=== PATIENT | female | born 1985 | race Caucasian/White ===

== ENCOUNTER 2020-11-03 15:13 | Outpatient (REF) | payer MEDICAID, SELFPAY ==
[2020-11-03 17:20] LABS: Amphetamine Screen Urine Not Detected (Not Detect); Barbiturates, Urine Not Detected (Not Detect); Benzodiazepines Screen Urine Not Detected (Not Detect); Cannabinoid Screen Urine Not Detected (Not Detect); Cocaine Screen Urine Not Detected (Not Detect); Opiate Screen Urine Not Detected (Not Detect); Phencyclidine Screen Urine Not Detected (Not Detect)
== END 2020-11-03 15:14 | disposition home or self-care (01) ==
LOC: HO.LAB 15:13
PROVIDERS: PCP Family Medicine; Visit Provider Psychiatry & Neurology Psychiatry
DX: Z79.899 Other long term (current) drug therapy (principal)
CPT/HCPCS: 80307

== ENCOUNTER 2020-11-06 10:00 | Outpatient (RCR) | payer OTHER, SELFPAY ==
--- NOTE | 2020-10-31 13:04 | HO.PS.ADMBH ---
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 The patient had anorexia nervosa since she was 16 with multiple admissions to medicine and later psychiatry, at least 32 admissions with several complications due to her anorexia. She had surgical complications such as ileus paraliticus due to lack of intake and metabolic problems. She also complained of depressive symptoms elicited by depressed mood, anhedonia, poor sleep and increased anxiety. During the intake interview, she reported that she was fairly stable, she is in a complex regimen with benzodiazepines, Suboxone and several antidepressants. She states that she has extensive fragmentation mioclonus, chronic pain, and she is recently sober from heroine. Her last use of heroin was 10 days ago. No acute safety concerns. Medical Evaluation Reviewed: No [facility] Narrative: She had ileus paraliticus Narrative: She had an ileostomy in the past Family History: Denies Social History: She is the youngest of 2 siblings, her milestones were achieved at expected age, she was raised by her parents, she had a good childhood. 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 Meds/Allergies Allergies Allergies Allergy/AdvReac Type Severity Reaction Status Date / Time Unable to Assess Allergy Verified 10/31/20 08:58 Mental Status Exam Mental Status Exam Patient Appearance: Well Grooomed Patient Orientation: Person, Place, Time and Situation Level of Consciousness: Awake Patient Behavior: Appropriate Mood Description: Calm Affect Description: Calm Ability to Follow Directions: Good Speech Pattern: Clear Memory Description: Intact Hallucinations: None Delusions: Not Present Thought Process: Intact Thought Content: positive for Intact Judgement: Fair Assessment & Plan Assessment & Plan (1) Anorexia nervosa: Status: Acute Code(s): F50.00 - Anorexia nervosa, unspecified Assessment and Plan: The patient has a lenghty history of anorexia with several medical comorbilities. Plan: Keep same tratment Certification I certify that partial hospital treatment is medically necessary due to the symptoms and problems resulting from the patient's mental illness and the failure to treat the patient at the partial hospital level of care would likely result in the patient requiring inpatient psychiatric care which could not be prevented at a less intensive level of care. Telehealth Telehealth Location of provider rendering services: practice address Location of patient: address on file Patient Identification confirmed using: Name, : Yes Telehealth method: video Patient verbally consented to treatment: Yes Patient verbally consented to billing insurance company: Yes Patient informed of any privacy concerns related to visit: No Time spent with patient (mins): 45
--- NOTE | 2020-10-31 13:06 | PC.ADMIT ---
Patient scheduled to meet with me at 1315 to complete nursing assessment however patient stated she thought the program ended at 1300 and was tearful stating she has a therapy appointment at that time and does not want to miss it. She agreed to go over her medications with me however did not have time to complete the assessment. Patient denied SI or thoughts to harm herself. She has the national suicide hotline if needed.
--- NOTE | 2020-11-03 15:09 | PC.NURSE ---
I called [facility] to inquire about their IOP substance program. I was informed that they have openings and the client would have to call directly. I called Alex and gave her this information. She agreed to call them.
--- NOTE | 2020-11-03 15:22 | PC.NURSE ---
Case opened in treatment team
--- NOTE | 2020-11-04 09:26 | PC.NURSE ---
Pt requested a phone call. Called pt to discuss issue from last night with her toxicology screening. She reported feeling like we did not take into consideration her handicap . Assured her that it was not intentional and the toxicology screen we do for everyone is a urine screen. Apologized for the lack of communication surrounding the type of screen and informed her that if the program needs another one, she will be given that information up front so she can bring her straight cath equipment. Pt agreed and was thankful for the discussion.
--- NOTE | 2020-11-04 12:16 | PC.NURSE ---
Patient went to get a urine drug screen at [facility] yesterday and was upset to learn that it was a urine drug screen and was unprepared for this as she self catheterizes and did not bring a straight catheter with her as she assumed the test was gong to be oral or serum as she stated she thought they stopped urine tests d/t Covid. I told the patient that I was sorry that happened to her and I realized that upon admission to [facility] Lorraine Campa reviews a lot of information regarding the [facility] which includes patient contracts that states we do urine ORELLANA and how patient could have missed this information. Patient stated that she could do urine drug screens however she just needs to know. Patient also stated that she only has enough catheters to catherized herself three times a day and worried that she would run out if needing to take urine ORELLANA. Information obtained from lab regarding serum ORELLANA. Serum ORELLANA would need to be sent out and could take 3-4 days to come back. Patient would prefer serum drug screens which we will order moving forward. Patient however was able to complete the urine ORELLANA yesterday which came back negative.
--- NOTE | 2020-11-04 14:24 | PC.NURSE ---
Called pt to check in at the end of the day. She presented as scattered, slightly slurring her words, and trailing off at times. When asked she stated I'm fine and attempted to explain the thoughts she had. For example she stated a friend cancelled on her for tonight and then separately that she had to go grocery shopping and then, when prompted, she explained the friend was supposed to go grocery shopping with her. Also, that grocery shopping is triggering for her because of her eating issues. Discussed other options like her showcase maker helping her out from her outreach program (that she couldn't think of the name to) or her boyfriend helping her. She reported that her boyfriend became more of a printer operator and they broke up recently but he still helps her out. Pt reported being safe and not using. She reported she was going to call [facility] for admission to an IOP. Clinician to follow up with her shortly.
--- NOTE | 2020-11-04 15:27 | PC.NURSE ---
I reviewed the clients treatment plan. We discussed length of treatment as she was given 12 units by her insurance and she has an appointment with [facility]ace on 11/17. We discussed either ending this Tuesday or by next Tuesday. I questioned her about appearing tired in group and she states that she was struggling emotionally and physically from yesterday. She denied using substances.
--- NOTE | 2020-11-05 14:40 | HO.PHPPROGNO ---
Subjective Subjective Date of Service: 11/05/20 Reason For Visit: MDD, PTSD, Opioid Use, Anorexia Interim History: The patient reported been euthymic, with no new symptoms, able to contract for safety. She statedd that since she has chronic pain, she wants to change her Suboxone to Methadone. She stated that she doesn't go into withdrawal with Suboxone but a therapist of the program suspected that she was intoxicated. She adamantly denied relapse but her story of not getting into withdrawal with Suboxone is unlikely unless that she is using other opioids. Medication Compliance: Yes Side effects from medications: No Attending Groups: Yes Review of Systems Acute medical concerns: Yes Medical Review of Systems: unchanged Mental Status Exam Mental Status Exam Patient Appearance: Well Grooomed Patient Orientation: Person, Place, Time and Situation Level of Consciousness: Awake Patient Behavior: Appropriate and Talkative Mood Description: Happy Affect Description: Relaxed Patient Cognition Impaired: No Ability to Follow Directions: Good Speech Pattern: Clear Memory Description: Intact Hallucinations: None Delusions: Not Present Thought Process: Goal Oriented Thought Content: positive for Linear Judgement: Fair Assessment & Plan Assessment & Plan (1) Anorexia nervosa: Status: Acute Code(s): F50.00 - Anorexia nervosa, unspecified Assessment and Plan: Adult female with severe anorexia, with medical complications such as ileostomy, chronic pain, opioid use disorder. Today, she stated that she was going to change from Suboxone to Methadone and she has stopped it but it possible that she has relapsed on drugs. She has an appointment at [facility] on November. Plan: Keep same treatment (2) Opioid abuse: Status: Acute Code(s): F11.10 - Opioid abuse, uncomplicated (3) Mood disorder: Status: Acute Code(s): F39 - Unspecified mood [affective] disorder Certification I certify that partial hospital treatment is medically necessary due to the symptoms and problems resulting from the patient's mental illness and the failure to treat the patient at the partial hospital level of care would likely result in the patient requiring inpatient psychiatric care which could not be prevented at a less intensive level of care. Greater than 50% of the session was spent on counseling and/or coordination of care Discharge Plan Discharge Attending provider: Víctor Rosenberg Primary Care Provider: Caroline Thapa Medications: New clonazepam [Klonopin] 2 mg tablet 2 mg PO BEDTIME Qty: 7 RF: 1 No Action loperamide [Imodium] 2 mg Capsule 4 mg PO TID RF: 0 bethanechol chloride 25 mg tablet 1 tab PO TID RF: 0 gabapentin 800 mg Tablet 800 mg PO BEDTIME RF: 0 trazodone 100 mg Tablet 100 mg PO BEDTIME RF: 0 pantoprazole 40 mg Tablet,Delayed Release (Dr/Ec) 40 mg PO DAILY RF: 0 zolpidem [Ambien] 10 mg Tablet 10 mg PO BEDTIME PRN (Reason: Insomnia) RF: 0 fluoxetine 20 mg Capsule 20 mg PO DAILY RF: 0 duloxetine [Cymbalta] 30 mg Capsule,Delayed Release(Dr/Ec) 30 mg PO DAILY RF: 0 duloxetine [Cymbalta] 60 mg Capsule,Delayed Release(Dr/Ec) 60 mg PO DAILY RF: 0 ferrous gluconate 324 mg (36 mg iron) Tablet 324 mg PO DAILY RF: 0 buprenorphine-naloxone [Suboxone] 8-2 mg Film 2 film BUCCAL DAILY RF: 0 Narcan 4 mg/actuation spray,non-aerosol 1 spray intranasal NEEDED PRN (Reason: Opioid Overdose) RF: 0 Referrals: Caroline Thapa MD [Primary Care Provider] - 1 Week Telehealth Telehealth Location of provider rendering services: practice address Location of patient: address on file Patient Identification confirmed using: Name, : Yes Telehealth method: video Patient verbally consented to treatment: Yes Patient verbally consented to billing insurance company: Yes Patient informed of any privacy concerns related to visit: No Time spent with patient (mins): 15
--- NOTE | 2020-11-06 12:51 | PC.NURSE ---
Called pt after second group to check in regarding reports her being in and out of group and appearing intoxicated in the first group. She denied use. She reported extreme pain in her genital area and that she used a whole plunger of prescribed lidocaine in her vagina. Recommended she call her doctor regarding the pain and the lidocaine use. She agreed. Pt called back a reported she will be seeing her doctor at 1:45 this afternoon.
--- NOTE | 2020-11-06 14:18 | PC.NURSE ---
Patient reported to staff that she is prescribed lidocaine for vaginal pain secondary to intercourse. She told staff she used the whole bottle vaginally as the vaginal pain would not go away. Patient spoke to Gris the supervisor sandblaster who advised patient to make an appointment with her PCP to f/u. Per clinicians earlier in the day patient appeared to be rambling on in group and appeared to be nodding off towards the end of the first group. I spoke to patient at 12:30 and patient speech appeared slightly slurred at times. She was alert and oriented. Asked if she took bottle of lidocaine and patient was upset stating she did not take the whole bottle she used a vial. Asked how much she is prescribed and if she uses it with her catheter and patient stated she was unsure how much she was prescribed and stated it was prescribed for pain secondary to intercourse. Patient plans on reviewing use and how much is prescribed during her PCP appointment. Patient denied overusing this medication. Patient stated she has an appointment with her PCP at 1345. Per clinicians during the last group patient appeared alert and oriented and was clear in thought. During admission patient stated to me that she has injected heroin into her vagina and does not want to go back to doing this. Patient plans on attending substance IOP after the [facility] program. Orellana done on 10/31/20 was negative. Serum ORELLANA ordered for tomorrow morning.
--- NOTE | 2020-11-06 15:28 | PC.NURSE ---
Spoke to Zuleyma who stated she is currently at her doctors office waiting for an ambulance to arrive as her EKG was abnormal. She stated if we do not here from her tomorrow it is because she has been hospitalized. Patient was tearful stating she does not want to be hospitalized.
--- NOTE | 2020-11-07 08:37 | PC.NURSE ---
Pt called this morning to discuss what happened yesterday after she went the doctors. She reported she was taken by ambulance to [facility]. She reported she left AMA, walked around [place] for hours and used half a bag of heroin. Spoke to pt with [facility]. Program recommendations are detox but pt declined. She was willing to return to an ER to complete medical assessment with the potential of medical inpatient. Pt agreed to go to [facility] ER and follow up with [facility] after.
--- NOTE | 2020-11-07 08:38 | PC.NURSE ---
Patient left a message on my voicemail stating she left the hospital AMA and used Heroin. Gris the patient mainspring fabrication supervisor called patient this morning. Patient was on speaker phone while I and Nakia were in the room, patient aware. Gris reviewed with patient our recommendation which is for Zuleyma to go back to the hospital and get medical treatment. Also recommended detox. Zuleyma did not want to go back to [facility] as she felt they treated her like an addict however stated she could go to [facility]. Suggested boyfriend bring her as her boyfriend brought her home. Also recommended that patient seek Substance IOP afterwards in addition to getting treatment for her eating disorder.
--- NOTE | 2020-11-07 14:19 | PC.NURSE ---
I called and left a message with the clients therapist Sonya Brady at [facility] clients dc from [facility] and our recommendations for medical assessment at er and [facility] intake for substance IOP.
== END 2020-11-07 14:28 | disposition home or self-care (01) ==
LOC: HO.PHPA 10:00
PROVIDERS: PCP Family Medicine; Visit Provider Psychiatry & Neurology Psychiatry
DX: F50.00 Anorexia nervosa, unspecified (principal); F39 Unspecified mood [affective] disorder; F11.10 Opioid abuse, uncomplicated; Z79.899 Other long term (current) drug therapy
CPT/HCPCS: 90791; 90853

== ENCOUNTER 2021-04-23 14:48 | Outpatient (REF) | payer MEDICAID, SELFPAY ==
--- NOTE | 2021-04-23 | ECG_ITS ---
Test Reason : anorexia, hx. seizures Blood Pressure : / mmHG Vent. Rate : 084 BPM Atrial Rate : 084 BPM P-R Int : 138 ms QRS Dur : 098 ms QT Int : 386 ms P-R-T Axes : 072 072 011 degrees QTc Int : 456 ms Normal sinus rhythm Incomplete right bundle branch block T-wave inversion in Inferior leads Abnormal ECG No previous ECGs available Referred By: Halina Dumont Electronically Signed By:CHEYENNE BELTRE MD
[2021-04-23 15:52] LABS: Alanine Aminotransferase 20 U/L (0-31); Albumin Level 4.8 g/dL (3.5-5.0); Alkaline Phosphatase 93 U/L (39-117); Anion Gap 12 (12-20); Aspartate Amino Transferase 26 U/L (5-31); Bilirubin Total 0.3 mg/dL (0.0-1.0); Blood Urea Nitrogen 10 mg/dL (9-16); Calcium 10.2 mg/dL (8.4-10.2); Carbon Dioxide 28 mmol/L (22-29); Chloride 102 mmol/L (96-108); Estimated Glomerular Filt Rate > 60; Glucose Random 96 mg/dL (60-115); Potassium 4.2 mmol/L (3.3-5.1); Sodium 138 mmol/L (135-145); Total Protein 8.2 g/dL (6.5-8.0)
[2021-04-23 16:00] LABS: Amphetamine Screen Urine Not Detected (Not Detect); Barbiturates, Urine Not Detected (Not Detect); Benzodiazepines Screen Urine Not Detected (Not Detect); Cannabinoid Screen Urine Not Detected (Not Detect); Cocaine Screen Urine Not Detected (Not Detect); Fentanyl, urine POSITIVE (Not Detect); Opiate Screen Urine Not Detected (Not Detect); Phencyclidine Screen Urine Not Detected (Not Detect)
== END 2021-04-23 14:49 | disposition home or self-care (01) ==
LOC: HO.LAB 14:48
PROVIDERS: PCP Family Medicine; Visit Provider Nurse Practitioner Psychiatric/Mental Health
DX: F50.01 Anorexia nervosa, restricting type (principal); F33.1 Major depressive disorder, recurrent, moderate; F11.20 Opioid dependence, uncomplicated; Z79.899 Other long term (current) drug therapy
CPT/HCPCS: 80053; 80307; 93005

== ENCOUNTER 2021-04-28 08:00 | Outpatient (RCR) | payer OTHER, SELFPAY ==
[2021-04-10 11:34] VITALS: BMI 18.9
--- NOTE | 2021-04-10 12:25 | PC.ADMIT ---
Patient is a 35 year old female who was referred by [facility]. Patients was recently admitted to detox for substance use from 03/16-03/23/21. Patient reports snoring Fentanyl 2 bundles daily. She reports last use 03/09/21. Patient is here as a step down to treatment to work on mental health and continued sobriety. Patient has a significant history of mental health treatment complicated by medical issues, Anorexia, and substance use. Patient has been hospitalized medically many times and reports history of organ failure 2 years ago. Patient appears motivated for treatment and wants to learn healthier coping skills. Patient wants to do things differently and reports gaining 20 lbs recently and reports her appetite has improved. Patient lives with her partner of 8 months whom she stated is supportive. Patient is alert and oriented x4. Calm and cooperative. Presents with depressed mood and anxious affect. Denied SI. Asked who she could contact if she felt unsafe and she stated crisis, National Suicide hotline, or her Boyfriend. Patient struggling with guilt and shame over the past. Wants to work on coping skills and improving self esteem. Emailed patient information on online substance use groups (per patient permission) and recommended patient attend online groups in addition to [facility] for more support with early sobriety. Patient did report she stopped Suboxone 3 days ago as she is afraid she would not be able to get pain medication in the hospital if she has another urinary blockage of another medical issues arises. Patient has an upcoming prescriber appointment with her psychiatrist and plans on addressing this with him. Halina Dumont is aware. Unable to reconcile patients medications with the pharmacy at this time as I have been put on hold x3 for 30 minutes then the phone hangs up.
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
--- NOTE | 2021-04-14 14:19 | PC.NURSE ---
I spoke briefly with pt this morning and then again in the afternoon. She reports that she and her boyfriend, who share an apartment, have been tested positive for COVID. She reports that she is quite tired, and has not been able to eat much in 3 days. She reports she had COVID once before, and she has been vaccinated, and that her symptoms are mild. She says her boyfriend is quite sick but still home. She will let staff know if she needs a break from groups, or needs to lie down, or to discontinue program.
--- NOTE | 2021-04-14 15:18 | PC.NURSE ---
Case opened in treatment team.
--- NOTE | 2021-04-16 09:41 | PC.NURSE ---
Patient is aware that she has labs due including a urine ORELLANA and EKG. She reports she and her boyfriend tested positive for Covid and are quarantined until next Tuesday04/20/21. Stated she took another test and tested negative. Patient stated she will complete orders on Tuesday the . Patient also stated that she saw her prescriber Dr James on 04/15/21, Katie d/c and Trazodone increased to 200 mg at HS. Patient is not taking Suboxone at this time and will update us if she restarts Suboxone as she is seeing her suboxone prescirber today. Patient believes when she is taking Suboxone she is unable to urinate without catheterizing however reports when she is not taking Suboxone she is able to urinate without self catheterizing. Patient stated she is suppose to be taking Ferrous Gluconate and plans on starting this next week. She reports she is not on Magnesium at this time.
--- NOTE | 2021-04-16 09:51 | PC.NURSE ---
Patient reports she is no longer taking Prozac 20 mg daily as it was discontinued per Dr Rivas.
--- NOTE | 2021-04-16 11:36 | PM.EVENT ---
Event Note Date of Service: 04/16/21 Event Note: Client did not log in to her scheduled appointment today at 11:20am.
--- NOTE | 2021-04-17 14:28 | PC.NURSE ---
I called and LM for pt. Asked her to call back when she can re: how treatment is going, schedule, etc.
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
--- NOTE | 2021-04-17 16:34 | PC.NURSE ---
Pt called back and I spoke to her. We discussed length of stay, and ideas for creating structure after program. 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 She will plan to discharge on 05/01/21, and will be out on Wednesdays to see her therapist.
--- NOTE | 2021-04-20 11:57 | PC.NURSE ---
Patient called and stated she will not be in group as she is going to go to the hospital d/t c/o leg pain and urinary issues-specifically urinating on herself. Stated she straight catheterized herself however is still having issues. Stated she will call us with an update. Staff is aware.
--- NOTE | 2021-04-20 14:35 | HO.PHPPROGNO ---
Subjective Subjective Date of Service: 04/20/21 Reason For Visit: MDD, PDD, Atypical Anorexia Nervosa Guardianship: No Medical Problems Affecting Mental Status: No Interim History: Zuleyma reports difficulty sleeping, reports she has not slept in 4 days. She believes her lack of sleep is due to not having her Ambien refill completed yet. She says she has called her PCP office regarding this. Reports stomach pain, urine incontinence 2 times this morning. Reports she also is experiencing leg pain. Reports that she has lab work later today, but is in serious pain. Reports she is also craving using heroin, due to the level of pain. Denies SI at this time, no plan, no intent. Medication Compliance: Yes Side effects from medications: No Attending Groups: Yes Review of Systems Acute medical concerns: Yes pain in stomach, legs. Medical Review of Systems: changed Review of Systems Constitutional: Reports as per HPI Eyes: Reports no additional eye complaints Reports Normal hearing present Cardiovascular: Reports no additional cardiovascular complaints Respiratory: Reports no additional respiratory complaints Gastrointestinal: Reports GI cramping and Reports dyspepsia Genitourinary: Reports urinary incontinence Musculoskeletal: Reports abnormal gait (Reports difficulty walking due to leg pain.) Reports Normal hearing present and Reports abnormal gait (Reports difficulty walking due to leg pain.) Mental Status Exam Mental Status Exam Narrative: Well-developed, well-nourished female. Patient Appearance: Well Grooomed and Appropriate Patient Orientation: Person, Place, Time and Situation Level of Consciousness: Awake, Appropriate and Alert Patient Behavior: Appropriate, Cooperative, Anxious and Good Eye Contact Mood Description: Appropriate, Depressed and Anxious Affect Description: Appropriate, Depressed, Anxious, Labile and Nervous Ability to Follow Directions: Excellent Speech Pattern: Clear, Appropriate and Coherent Memory Description: Intact Hallucinations: None Delusions: Not Present Thought Process: Intact, Goal Oriented and Linear Thought Content: positive for Intact, positive for Linear and positive for Preoccupation (Focused on pain, urinary incontinence.) Depressive Symptoms: Increased Anxiety, Insomnia, Increased Irritability, Muscle Pain, Increased Fatigue and Difficulty Concentrating Judgement: Fair Diagnostics Vital Signs (24Hr): Body Mass Index 18.9 Assessment & Plan Assessment & Plan (1) Opioid abuse: Status: Acute Code(s): F11.10 - Opioid abuse, uncomplicated Assessment and Plan: Patient reports craving to use substances due to her level of physical pain. She was encouraged to reach out to any type of recovery supports that she has available so as to help prevent a relapse. (2) Mood disorder: Status: Acute Code(s): F39 - Unspecified mood [affective] disorder Assessment and Plan: Patient tearful, slightly labile, reports this is due to lack of sleep and in feeling pain. (3) Major depressive disorder, recurrent, moderate: Status: Acute Code(s): F33.1 - Major depressive disorder, recurrent, moderate Assessment and Plan: Patient upset, but believes that her symptoms are not due to her mood at this time but that are due to her physical pain. No SI, no safety concerns at this time. (4) Anorexia nervosa: Status: Acute Code(s): F50.00 - Anorexia nervosa, unspecified Assessment and Plan: 1. Keep current medications as prescribed. 2. Patient planning to go to hospital today to has pain and urinary incontinence episodes addressed. 3. Will follow-up as per protocol. Patient educated on: diagnosis, medication risk/benefits, substance abuse and therapeutic strategies Informed Consent: understands Certification I certify that partial hospital treatment is medically necessary due to the symptoms and problems resulting from the patient's mental illness and the failure to treat the patient at the partial hospital level of care would likely result in the patient requiring inpatient psychiatric care which could not be prevented at a less intensive level of care. Greater than 50% of the session was spent on counseling and/or coordination of care Discharge Plan Discharge Attending provider: Víctor Rosenberg Primary Care Provider: Caroline Thapa Medications: No Action clonazepam [Klonopin] 2 mg tablet 2 mg PO BEDTIME Qty: 7 RF: 1 bethanechol chloride 25 mg tablet 1 tab PO TID RF: 0 gabapentin 800 mg Tablet 800 mg PO BEDTIME RF: 0 trazodone 100 mg Tablet 200 mg PO BEDTIME RF: 0 pantoprazole 40 mg Tablet,Delayed Release (Dr/Ec) 40 mg PO DAILY RF: 0 duloxetine [Cymbalta] 30 mg Capsule,Delayed Release(Dr/Ec) 30 mg PO DAILY RF: 0 duloxetine [Cymbalta] 60 mg Capsule,Delayed Release(Dr/Ec) 60 mg PO DAILY RF: 0 Narcan 4 mg/actuation spray,non-aerosol 1 spray intranasal NEEDED PRN (Reason: Opioid Overdose) RF: 0 metoclopramide HCl 10 mg Tablet 5 mg PO TID RF: 0 Referrals: Caroline Thapa MD [Primary Care Provider] - 1 Week Telehealth Telehealth Location of provider rendering services: practice address Location of patient: address on file Patient Identification confirmed using: Name, : Yes Telehealth method: video Patient verbally consented to treatment: Yes Patient verbally consented to billing insurance company: Yes Patient informed of any privacy concerns related to visit: Yes Time spent with patient (mins): 15
--- NOTE | 2021-04-21 10:11 | PC.NURSE ---
Patient left 2 messages on my machine when I got in this morning stating she has been at [facility] since 12:00 yesterday afternoon 04/20/21. Stated they did labs, CT scan, and gave her Dilaudid for pain. Stated she had another 13-20 hour wait and may leave AMA as she could not go another night without sleeping and needed to get a good night sleep and get something to eat. Yvette called patient this morning. Per Yvette's cortext, Zlueyma stated she will be attending PHP today and stated she did leave the ED AMA after waiting 10 hours and then telling her it would be another 20 hours. Patient reports they gave her a letter explaining? She stated people in the waiting room were getting angry and made Zuleyma scared. Feeling better today as she stated she slept. Thoughts sounded clear and patient appeared oriented x4.
--- NOTE | 2021-04-24 13:44 | PC.NURSE ---
Patient EKG abnormal. Incomplete right bundle branch block, T wave inversion in inferior leads. Maria D Lowe RECORD SEARCHER reviewed. Faxed copy to patient's PCP's office for Dr Rossy Rojas to review and to f/u with patient if needed. Called patient's pcp's office and spoke to the veterinary receptionist requesting to speak to a nurse to review the results. Nurse not available at this time, awaiting for a call back for further instructions.
--- NOTE | 2021-04-24 13:51 | PC.NURSE ---
Spoke to patient and reviewed her abnormal EKG and abnormal ORELLANA+ Fentanyl. Patient reports she was given Dilaudid this week in the ED for pain. See previous notes. Repeat ORELLANA next week. Patient is aware we called her PCP and faxed PCP results of EKG and Chem profile and are awaiting to review EKG results with PCP and any further instructions. Patient is not SOB, no chest pain. Stated she is going for a walk and will keep her phone on her. Does not appear to be in any distress.
--- NOTE | 2021-04-24 14:44 | PC.NURSE ---
Spoke to Liat the nurse at patient's PCP's office at [facility]. She received patient's EKG results and results of Chemistry profile. She will review with the Doctors at the practice and will call the patient if follow up is needed. Halina GALLEGOS aware.
--- NOTE | 2021-04-27 14:13 | PC.NURSE ---
Patient asked to speak to this credit underwriter this morning. She stated that on Tuesday she took her old prescription of Dilaudid as her heart was racing. Stated she thinks now that she was having a panic attack. Per [facility] patient does get a prescription for Dilaudid periodically. Patient stated she has an Echocardiogram test at [facility] today and plans on going after groups today. Denied racing heart symptoms or SOB today. Talked about Dilaudid use. Staff talked to patient about not using old prescriptions and to not use Dilaudid while attending [facility]. Team is aware. Yvette Baum also will talk to patient about not using Dilaudid while in the program and will talk to her about attending substance use treatment after d/c from the program.
--- NOTE | 2021-04-27 15:53 | HO.PHPPROGNO ---
Subjective Subjective Date of Service: 04/27/21 Reason For Visit: MDD, PDD, Atypical Anorexia Nervosa Guardianship: No Medical Problems Affecting Mental Status: Yes (Anorexia, pain) Interim History: Zuleyma was tearful, reports that she is struggling. States experiencing side effects regarding recent increase of trazodone. Medication Compliance: Yes Side effects from medications: Yes (reports night sweats from trazodone. ) Attending Groups: Yes Review of Systems Acute medical concerns: Yes Concern regarding recent EKG results, also reports chronic pain. Medical Review of Systems: unchanged Review of Systems Review of Systems Yes all other systems are reviewed and are negative Mental Status Exam Mental Status Exam Patient Appearance: Well Grooomed and Appropriate Patient Orientation: Person, Place, Time and Situation Level of Consciousness: Awake, Appropriate and Alert Patient Behavior: Appropriate, Cooperative, Anxious, Good Eye Contact and Crying Mood Description: Depressed, Anxious, Labile and Angry Affect Description: Appropriate, Anxious and Labile Patient Cognition Impaired: No Ability to Follow Directions: Excellent Speech Pattern: Clear, Appropriate, Spontaneous Speech and Coherent Memory Description: Intact Hallucinations: None Delusions: Not Present Thought Process: Intact, Goal Oriented and Linear Thought Content: positive for Intact, positive for Goal Oriented and positive for Linear Depressive Symptoms: Increased Anxiety and Crying Spells Judgement: Fair Diagnostics Vital Signs (24Hr): Body Mass Index 18.9 Assessment & Plan Assessment & Plan (1) Opioid abuse: Status: Acute Code(s): F11.10 - Opioid abuse, uncomplicated Assessment and Plan: Client denies any type of opioid abuse at this time. Has old script for Dilaudid, reports she has been taking this recently for rectal pain. A [facility] review with client shows that she has had sporadic scripts for Dilaudid p.r.n.. Last filled 2019, with use by date as 06/22/2021. She reports feeling as if people do not believe she has a valid script, and want to kick her out of program. Education and support was provided regarding opioid use disorder and use of p.r.n. opioids, as a trigger to relapse. (2) Mood disorder: Status: Acute Code(s): F39 - Unspecified mood [affective] disorder Assessment and Plan: Client reports some side effects with recent medication changes of stopping Prozac and increase trazodone. She states that she wishes to continue with these meds, as it is helping her sleep. (3) Anorexia nervosa: Status: Acute Code(s): F50.00 - Anorexia nervosa, unspecified Assessment and Plan: Client followed medically for this concern. Assessment and Plan: 1. Continue current medication regimen as prescribed by outpatient provider. 2. Follow-up as per protocol. Patient educated on: diagnosis, medication risk/benefits, substance abuse and therapeutic strategies Informed Consent: understands Reason for contiued partial hosp. stay Substantial Risk for: inability to function and med/psych decompensation Certification I certify that partial hospital treatment is medically necessary due to the symptoms and problems resulting from the patient's mental illness and the failure to treat the patient at the partial hospital level of care would likely result in the patient requiring inpatient psychiatric care which could not be prevented at a less intensive level of care. I spent minutes with the patient and/or on the patient floor today, greater than?50% of which was spent counseling/coordinating care. Discharge Plan Discharge Attending provider: Víctor Rosenberg Primary Care Provider: Caroline Thapa Medications: No Action clonazepam [Klonopin] 2 mg tablet 2 mg PO BEDTIME Qty: 7 RF: 1 bethanechol chloride 25 mg tablet 1 tab PO TID RF: 0 gabapentin 800 mg Tablet 800 mg PO BEDTIME RF: 0 trazodone 100 mg Tablet 200 mg PO BEDTIME RF: 0 pantoprazole 40 mg Tablet,Delayed Release (Dr/Ec) 40 mg PO DAILY RF: 0 duloxetine [Cymbalta] 30 mg Capsule,Delayed Release(Dr/Ec) 30 mg PO DAILY RF: 0 duloxetine [Cymbalta] 60 mg Capsule,Delayed Release(Dr/Ec) 60 mg PO DAILY RF: 0 Narcan 4 mg/actuation spray,non-aerosol 1 spray intranasal NEEDED PRN (Reason: Opioid Overdose) RF: 0 metoclopramide HCl 10 mg Tablet 5 mg PO TID RF: 0 Referrals: Caroline Thapa MD [Primary Care Provider] - 1 Week Telehealth Telehealth Location of provider rendering services: practice address Location of patient: address on file Patient Identification confirmed using: Name, : Yes Telehealth method: video Patient verbally consented to treatment: Yes Patient verbally consented to billing insurance company: Yes Patient informed of any privacy concerns related to visit: Yes Time spent with patient (mins): 15
--- NOTE | 2021-04-27 16:25 | PC.NURSE ---
I called and spoke to pt after she expressed fear and anger around the potential to be kicked out of the program for taking Dilaudid, which she said is a current prescription. She shared that she doesn't abuse this medication, and that it doesn't get her high. We again talked about the danger of having opiates around when struggling with an opiate addiction, and pt agreed to abstain from taking it unless ordered by her MD. We also discussed aftercare, and pt reported a strong desire to attend [facility] when staff offered to look into this referral.
--- NOTE | 2021-04-28 09:48 | PC.NURSE ---
At pt's request, I called and put in a referral for her to attend [facility]'s IOP program. She has a phone intake on 05/05/21 t 2pm. A clinician by the name of Little will call her for this.
--- NOTE | 2021-04-30 10:25 | PC.NURSE ---
Pt called out sick this morning.
--- NOTE | 2021-04-30 12:15 | PC.NURSE ---
I called and LM for pt. She called out sick this morning. I told her to call if she needs anything and I hope she feels better.
--- NOTE | 2021-05-01 10:27 | PC.NURSE ---
Patient called and left a message with staff calling out sick to the program today. Per staff clinician Yvette patient will be discharging from the program today. Called patient and she stated she was not feeling well and that she needs to get tested for COVID however stated she does not think she has COVID. Patient coughing during conversation and sounded congested. Asked patient if she was going to f/u with her PCP and she stated she did not think so, stated she has a cold. Advised patient to get rest and drink plenty of fluids and if feels worse call her PCP. Denied SI , no safety concerns. Reviewed patient medications with patient. Patient reports taking medications as prescribed.
--- NOTE | 2021-05-01 15:05 | PC.NURSE ---
I isidro and LEI for Shiloh Brady, pt's therapist. I let her know about pt's discharge from [facility], and her scheduled intake for [facility] next week.
== END 2021-05-04 07:09 | disposition home or self-care (01) ==
LOC: HO.PHPA 08:00
PROVIDERS: PCP Family Medicine; Visit Provider Psychiatry & Neurology Psychiatry
DX: F33.1 Major depressive disorder, recurrent, moderate (principal); F11.20 Opioid dependence, uncomplicated; F50.01 Anorexia nervosa, restricting type; F43.10 Post-traumatic stress disorder, unspecified
CPT/HCPCS: 90791; 90853

== ENCOUNTER 2021-07-23 18:36 | Inpatient (IN) | payer MEDICAID, OTHER, SELFPAY ==
--- NOTE | 2021-07-23 | ECG_ITS ---
Test Reason : MEDICAL CLEAR Blood Pressure : / mmHG Vent. Rate : 066 BPM Atrial Rate : 066 BPM P-R Int : 150 ms QRS Dur : 106 ms QT Int : 432 ms P-R-T Axes : 071 069 004 degrees QTc Int : 452 ms Normal sinus rhythm with sinus arrhythmia RSR' or QR pattern in V1 suggests right ventricular conduction delay Borderline ECG When compared with ECG of 23-APR-2021 15:04, No significant change was found Referred By: Karyna Dobbs Electronically Signed By:Silvio Lentz
--- NOTE | ~2021-07-23 | XR_ITS ---
EXAMINATION: XR HIP, LEFT CLINICAL INFORMATION: Fall, evaluate for left-sided hip fracture. COMPARISON: None TECHNIQUE: Two views of the left hip. FINDINGS: No evidence of acute fractures or malalignment. The femoral head is well-seated in the acetabula. There is questionable soft tissue thickening in the lateral thigh, possibly the site of injury. No unexpected radiopaque foreign bodies. XR/XR hip LT w PEL1V IMPRESSION: No acute fractures or malalignment.
--- NOTE | ~2021-07-23 | CT_ITS ---
EXAMINATION: CT abdomen pelvis wo con CLINICAL INFORMATION: Reason for Exam Abd pain, Hx Ostomy COMPARISON: No prior CT available for comparison. TECHNIQUE: Multidetector volumetric imaging was performed from the superior aspect of the liver through the pubic symphysis a noncontrasted study. Sagittal and coronal reformatted images were obtained on the technologist's workstation. This CT examination was performed using dose optimization techniques as appropriate, variously including the following: *Automated exposure control *Adjustment of mA and/or kV according to patient size (this includes techniques or standardized protocols for targeted exams where dose is matched to indication/reason for exam; i.e. extremities or head) *Use of iterative reconstruction technique DLP: 337 mGy-cm FINDINGS: LOWER THORAX: Included lung bases are clear. HEPATOBILIARY: No focal hepatic lesions. No biliary ductal dilatation. GALLBLADDER: Gallbladder unremarkable. SPLEEN: Spleen is normal in size. PANCREAS: No focal mass or ductal dilatation. STOMACH AND GASTROINTESTINAL TRACT: Stomach is grossly unremarkable. Evaluation of the bowels is limited on this noncontrasted study. The stomach is distended partially filled with fluid. There is an ileostomy in the right lower quadrants mildly dilated the fluid-filled small bowel loops without a transitional zone could be mild ileus versus partial obstruction. Difficult to assess for transition zone due to lack of contrast. ADRENALS: No adrenal nodules. KIDNEYS/URETERS: No hydronephrosis, stones or solid mass lesions. URINARY BLADDER: Partially decompressed. PELVIC VISCERA: Unremarkable PERITONEUM: There is a free fluid in the dependent portion of the pelvis uncertain etiology. LYMPH NODES: No lymphadenopathy. VASCULAR:Abdominal aorta normal in size, no aneurysm found. BONES, ABDOMINAL WALL AND SOFT TISSUES: Age-appropriate changes of the spine and skeletal system, no destructive osteolytic or osteosclerotic bone lesion found CT/CT abdomen pelvis wo con IMPRESSION: Study limited due to lack of fat oral or IV contrast and paucity of intraperitoneal fat. *Distended stomach, Borderline dilated fluid-filled small bowel loops throughout the abdomen suggesting possibly mild ileus versus partial distal small bowel obstruction. If patient remain symptomatic, may consider correlation with follow-up Gastrografin small bowel follow-through. *Ileostomy right lower quadrant. *Trace amount of free fluid in the dependent portion of the pelvis, no free air.
[2021-07-23 19:02] VITALS: BP 114/69; PULSE 76; RESP 16; TEMP 36.7; O2SAT 99; BMI 19.7
--- NOTE | 2021-07-23 19:29 | ED.PSYCH ---
HPI - Psych General Chief Complaint: Psychiatric Symptoms Stated Complaint: Crisis Time Seen by Provider: 07/23/21 19:02 Source: patient Mode of arrival: ambulatory Limitations: no limitations History of Present Illness HPI Narrative: Patient comes to the emergency room complaining of vague suicidal ideation. Patient states that she is having a lot of trouble with her weight, patient known to be previously hospitalized for a more XR. Patient states that she can not lose enough weight, therefore patient has been using cocaine and heroin in an attempt to lose weight. Patient is struggling, states that she is feels that she can not keep it to get . Patient overdosed yesterday, she was taking to [facility], received Narcan. Denies homicidal ideation. Patient has previous suicide attempt at age 10 and 22 Related Data Home Medications Medication Instructions Recorded Confirmed bethanechol chloride 25 mg tablet 1 tab PO TID 10/31/20 04/10/21 duloxetine 30 mg capsule,delayed 30 mg PO DAILY 10/31/20 04/10/21 release (Cymbalta) duloxetine 60 mg capsule,delayed 60 mg PO DAILY 10/31/20 04/10/21 release (Cymbalta) gabapentin 800 mg tablet 800 mg PO BEDTIME 10/31/20 04/10/21 naloxone 4 mg/actuation nasal 1 spray INTRANASAL NEEDED PRN 10/31/20 04/10/21 spray (Narcan) pantoprazole 40 mg tablet,delayed 40 mg PO DAILY 10/31/20 04/10/21 release trazodone 100 mg tablet 200 mg PO BEDTIME 10/31/20 04/16/21 metoclopramide HCl 10 mg tablet 5 mg PO TID 04/10/21 04/10/21 Previous Rx's Medication Instructions Recorded clonazepam 2 mg tablet (Klonopin) 2 mg PO BEDTIME #7 tab 10/31/20 Allergies Allergy/AdvReac Type Severity Reaction Status Date / Time buspirone [From BuSpar] Allergy Swelling Verified 07/23/21 19:02 chlorpromazine Allergy Anaphylaxis Verified 07/23/21 19:02 [From Thorazine] lamotrigine [From Lamictal] Allergy Rash Verified 07/23/21 19:02 Sulfa (Sulfonamide Allergy Rash Verified 07/23/21 19:02 Antibiotics) linaclotide [From Linzess] AdvReac Abdominal Verified 07/23/21 19:02 Pain quetiapine [From Seroquel] AdvReac bad side Verified 07/23/21 19:02 effects' topiramate AdvReac Fogginess Verified 07/23/21 19:02 ziprasidone [From Geodon] AdvReac psychosis Verified 07/23/21 19:02 Review of Systems Review of Systems: Constitutional : No Weight loss, No Fever, No Chills, No Night Sweats, No Fatigue, No Malaise ENT/Mouth : No Hearing loss, No Ear Pain, No Nasal Congestion, No Sinus Pain, No Hoarseness, No sore throat, No Rhinorrhea, No Swallowing Difficulty Eyes: No Eye Pain, No Swelling, No Redness, No Foreign Body, No Discharge, No Vision Changes Cardiovascular : No Chest Pain, No SOB, No Dyspnea on Exertion, No Orthopnea, No Edema, No Palpitations Respiratory : No Cough, No Sputum, No Wheezing, No Smoke Exposure, No Dyspnea Gastrointestinal : no vomiting or diarrhea. Genitourinary : no irregular bleeding, No Dysuria, No Urinary Frequency, No Hematuria, No Urinary Incontinence, No Urgency, No Flank Pain, No Urinary Flow Changes, No Hesitancy Musculoskeletal : No joint pain, No Myalgias, No Joint Swelling Skin : No Skin Lesions, No rash Neuro : No Weakness, No Numbness, No Paresthesias, No Loss of Consciousness, No Dizziness, No Headache Psych : Complaining of anxiety, no depression, complaining of vague suicidal ideation, no homicidal ideation, complaining of feeling overweight Heme/Lymph: No Bruising, No Bleeding,No Lymphadenopathy Endocrine : No Polyuria, No Polydipsia, No Temperature Intolerance [facility] Past Medical History 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 Oriented X3. Eyes: Pupils equal, round and reactive to light. ENT: Pharynx normal. Neck: Normal inspection. Neck supple. No lymph nodes noted. No crepitus CVS: Normal heart rate and rhythm. Pulses normal. Normal S1 and S2 Respiratory: No respiratory distress. Breath sounds normal. No Wheezing. No rales Abdomen: Soft and nontender. No rigidity. No distention. Skin: Skin warm and dry. Normal skin color. Normal skin turgor. Extremities: No lower extremity edema. No lower extremity edema. No Lacerations. No Rash Neuro: Oriented X 3. No motor deficit. No sensory deficit. Moving all extermities. No slurred speech. Cranial nerves 2-12 grossly intact Psych: Alert, oriented, very anxious, very soft-spoken Course Course Course Narrative: Patient states that she can not urinate. Patient has issues with intermittent urinary retention. Patient has her own medical material to self cath Labs pending, [facility] consult pending. Bladder scan shows 273. Patient states that she cannot urinate. Patient will straight cath herself and provide urine Discharge Plan Discharge Clinical Impression: Anorexia nervosa Prescriptions: No Action clonazepam [Klonopin] 2 mg tablet 2 mg PO BEDTIME Qty: 7 RF: 1 bethanechol chloride 25 mg tablet 1 tab PO TID RF: 0 gabapentin 800 mg Tablet 800 mg PO BEDTIME RF: 0 trazodone 100 mg Tablet 200 mg PO BEDTIME RF: 0 pantoprazole 40 mg Tablet,Delayed Release (Dr/Ec) 40 mg PO DAILY RF: 0 duloxetine [Cymbalta] 30 mg Capsule,Delayed Release(Dr/Ec) 30 mg PO DAILY RF: 0 duloxetine [Cymbalta] 60 mg Capsule,Delayed Release(Dr/Ec) 60 mg PO DAILY RF: 0 Narcan 4 mg/actuation spray,non-aerosol 1 spray intranasal NEEDED PRN (Reason: Opioid Overdose) RF: 0 metoclopramide HCl 10 mg Tablet 5 mg PO TID RF: 0
--- NOTE | 2021-07-23 19:45 | PC.NURSE ---
ERASTO Warner sent
[2021-07-23 19:55] LABS: COVID-19 Test Negative (Negative); IDNOW Serial# 55D5AD1C
[2021-07-23 20:06] LABS: Appearance Urine CLEAR; Color Urine YELLOW; Glucose Urine UA NEG (NEG); Leukocyte Esterase Urine TRACE (NEG); Nitrite Urine NEG (NEG); UACC Culture Trigger YES; Urine Blood NEG (NEG); Urine Ketones NEG (NEG); Urine Protein NEG (NEG-TRACE)
[2021-07-23 20:08] LABS: UPreg QC Valid YES; Urine Pregnancy NEGATIVE (NEGATIVE)
[2021-07-23 20:20] LABS: Bacteria Urine TRACE /LPF; RBC Urine 0-2 /HPF (0); Squamous Epithelial Cell Urine 1+ /LPF
[2021-07-23 20:21] LABS: Amphetamine Screen Urine Not Detected (Not Detect); Barbiturates, Urine Not Detected (Not Detect); Benzodiazepines Screen Urine Not Detected (Not Detect); Cannabinoid Screen Urine Not Detected (Not Detect); Cocaine Screen Urine POSITIVE (Not Detect); Fentanyl, urine POSITIVE (Not Detect); Mucus Urine TRACE /LPF; Opiate Screen Urine Not Detected (Not Detect); Phencyclidine Screen Urine Not Detected (Not Detect)
[2021-07-23 20:29] LABS: Basophils Percent Auto 0.3 % (0-2); Eosinophils Absolute Auto 0.2 X10*3/uL (0.0-0.4); Eosinophils Percent Auto 2.3 % (0-4); Hematocrit 36.9 % (37.0-47.0); Hemoglobin 12.1 g/dl (12.0-16.0); Imm Gran Abs Auto 0.01 X10*3/uL (0.00-0.03); Imm Gran Pct Auto 0.1 % (0.0-0.4); Lymphocytes Absolute Auto 3.4 X10*3/uL (1.2-4.9); Lymphocytes Percent Auto 42.2 % (20-40); MANUAL DIFF FLAG NO; Mean Corpuscular HGB Conc 32.8 g/dl (31.0-35.0); Mean Corpuscular Hemoglobin 29.2 pg (27.0-33.0); Mean Corpuscular Volume 89.1 fL (80.0-98.0); Mean Platelet Volume 9.2 fL (9.4-12.3); Monocytes Absolute Auto 0.6 X10*3/uL (0.1-1.2); Monocytes Percent Auto 6.9 % (2-11); Neutrophils Absolute Auto 3.9 x10*3/uL (2.0-8.3); Neutrophils Percent Auto 48.2 % (45-73); Platelet Count 290 X10*3/uL (160-400); Red Blood Count 4.14 X10*6/uL (4.20-5.50); Red Cell Distribution Width 13.3 % (11.0-16.0)
[2021-07-23 20:41] LABS: Ethanol < 10 mg/dL
[2021-07-23 20:45] LABS: Alanine Aminotransferase 19 U/L (0-31); Albumin Level 4.2 g/dL (3.5-5.0); Alkaline Phosphatase 70 U/L (39-117); Anion Gap 10 (12-20); Aspartate Amino Transferase 25 U/L (5-31); Bilirubin Direct 0.2 mg/dL (0.0-0.5); Bilirubin Total 0.5 mg/dL (0.0-1.0); Blood Urea Nitrogen 12 mg/dL (9-16); Calcium 10.1 mg/dL (8.4-10.2); Carbon Dioxide 30 mmol/L (22-29); Chloride 101 mmol/L (96-108); Creatinine Clr Calc Pharmacy 92.3; Estimated Glomerular Filt Rate > 60; Glucose Random 97 mg/dL (60-115); Potassium 4.1 mmol/L (3.3-5.1); Sodium 137 mmol/L (135-145); Total Protein 7.6 g/dL (6.5-8.0)
--- NOTE | 2021-07-23 21:28 | PHA.MEDREC ---
Pharmacy Consult ? Medication Reconciliation Pharmacy has completed the medication reconciliation.Spoke with patient in [facility]. Pt takes all medications at night except cymbalta. Pt had all medications with her.
[2021-07-23] MEDS: traZODone HCL 100 MG TABLET 200 MG PO (23:14)
[2021-07-23] MEDS: Zolpidem Tartrate 5 MG TABLET PO (23:15)
[2021-07-23] MEDS: Gabapentin 400 MG CAPSULE 800 MG PO (23:15)
[2021-07-23] MEDS: clonazePAM 1 MG TABLET 2 MG PO (23:15)
[2021-07-23 23:25] VITALS: BP 107/67; PULSE 74; RESP 20; TEMP 36.4; O2SAT 100
--- NOTE | 2021-07-24 00:29 | PC.NURSE ---
Pt remains alert and oriented x4, calm and cooperative, pleasant to staff. Pt took bed time medications as ordered without issues. Pt independent with illeostomy care. Pt asleep in bed, will continue to monitor.
--- NOTE | 2021-07-24 07:00 | PC.NURSE ---
patient appears to remain asleep at present respirations are even and unlabored, patient appears in no distress
[2021-07-24] MEDS: DULoxetine HCl 60 MG CAPSULE.DR PO ×2 (08:22→13:28)
--- NOTE | 2021-07-24 09:14 | PC.NURSE ---
patient expressed displeasure that she perceived her meds as not right, called pharmacy who verified [place]ab[place] 800mg BID after 07/30
[2021-07-24 10:59] VITALS: BP 124/83; PULSE 86; TEMP 36.2; O2SAT 100
[2021-07-24] MEDS: Acetaminophen 325 MG TABLET 650 MG PO (11:59)
--- NOTE | 2021-07-24 13:33 | PC.NURSE ---
Addendum entered by Carlos Salgado 07/24/21 13:36: pt ate lunch of yogurt, cottage cheese and fruit Original Note: pt pleasant and polite, spoke w pharmacy about some of her meds being given differently than she had been taking at home, bolivar from pharmacy spoke w her and is reaching out to pt pharmacy about a change in her gabapentin, change mad w her cymbalta and pt requested ambien 10mg but the hospital policy is for max 5 mg so no change was made
[2021-07-24] MEDS: Gabapentin 600 MG TABLET 800 MG PO (15:53)
--- NOTE | 2021-07-24 17:12 | PC.NURSE ---
Patient resting comfortably in bed aware of plan of care to be an inpatient bed search. Took po meds without difficulty will continue to monitor.
[2021-07-24] MEDS: Gabapentin 400 MG CAPSULE 800 MG PO (21:21)
[2021-07-24] MEDS: clonazePAM 1 MG TABLET 2 MG PO (21:21)
[2021-07-24] MEDS: Zolpidem Tartrate 5 MG TABLET PO (21:22)
[2021-07-24] MEDS: traZODone HCL 100 MG TABLET 200 MG PO (21:22)
[2021-07-25 05:13] VITALS: BP 114/70; PULSE 74; RESP 18; TEMP 36.6; O2SAT 99
--- NOTE | 2021-07-25 06:47 | PC.NURSE ---
Patient slept through the night, no distress observed/reported, behavior appropriate and cooperative, medication compliant, patient has ileostomy per report, patient was up this morning reported she did her ileostomy care, patient disposition per [facility] is section 12 inpatient bed search, will continue to monitor.
[2021-07-25] MEDS: Gabapentin 400 MG CAPSULE 800 MG PO ×2 (08:26→20:28)
[2021-07-25] MEDS: DULoxetine HCl 60 MG CAPSULE.DR 120 MG PO (08:27)
[2021-07-25 09:41] VITALS: RESP 18
[2021-07-25] MEDS: LORazepam 1 MG TABLET PO (10:43)
[2021-07-25] MEDS: Acetaminophen 325 MG TABLET 650 MG PO ×2 (12:58→21:34)
--- NOTE | 2021-07-25 13:35 | PC.NURSE ---
pt asking this rn if he can speak w pt in her room, pt appears tearful. pt expressing si thoughts, sts i could easily just have a grape and it would clog my ostomy and i would need surgery to be saved . pt being allowed to vent feelings, moved to [facility] area for better visibility w staff. provider in to see pt, pt alf to safety and will advise any staff if increase in anxious feelings occurs.
[2021-07-25 15:38] VITALS: BP 120/77; PULSE 80; TEMP 37.1; O2SAT 97
--- NOTE | 2021-07-25 18:40 | PC.NURSE ---
report taken from chris beckham. Pt just finished eating dinner tray and is in dayroom with other patients. Interacting well and having healthy conversation. pt appears in nad. will continue to monitor
[2021-07-25] MEDS: Zolpidem Tartrate 5 MG TABLET PO (20:28)
[2021-07-25] MEDS: clonazePAM 1 MG TABLET 2 MG PO (20:28)
[2021-07-25] MEDS: traZODone HCL 100 MG TABLET 200 MG PO (20:28)
[2021-07-25] MEDS: diphenhydrAMINE HCL 25 MG TABLET PO (20:29)
--- NOTE | 2021-07-25 21:06 | PC.NURSE ---
pt was given night time medications with no issues. pt started complaining of left hip pain with bruising after OD and falling. Spoke to danielle DEPUTY BRAND INSPECTOR regarding clients status and he ordered a left hip x ray.
--- NOTE | 2021-07-25 21:38 | PC.NURSE ---
pt states that she has been feeling sick lately after eating certain foods. Educated to let staff know if nausea occurs to let us know so we can medicate her appropriately.
[2021-07-26 01:25] VITALS: BP 117/62; PULSE 69; RESP 16; TEMP 36.8; O2SAT 98
--- NOTE | 2021-07-26 06:19 | PC.NURSE ---
Patient slept through the night, no distress observed/reported, medication compliant, behavior appropriate, disposition per [facility] is section 12 inpatient bed search, no update on bed search, patient has ileostomy/self care, VSS, will continue to monitor
--- NOTE | 2021-07-26 07:42 | PC.NURSE ---
Pt calm, up to BR with steady gait. Checking in with RN regarding morning med pass. No complaints at this time. Good eye contact and clear speech.
[2021-07-26] MEDS: Gabapentin 400 MG CAPSULE 800 MG PO ×2 (08:21→20:33)
[2021-07-26] MEDS: DULoxetine HCl 60 MG CAPSULE.DR 120 MG PO (08:21)
--- NOTE | 2021-07-26 13:16 | PC.NURSE ---
In last few hours patient has been socializing, additional paperback books were brought as well as meds from home to be relabled by pharmacy and additional catheters. Catheters are in locker. Pt has permission to bring soap to bathroom for catheterization.
[2021-07-26 14:00] VITALS: BP 120/76; PULSE 114; TEMP 37.2; O2SAT 99
[2021-07-26] MEDS: Bethanechol Chloride 25 MG TABLET PO ×2 (14:58→17:26)
[2021-07-26 16:51] VITALS: BP 140/94; PULSE 109; RESP 18; TEMP 36.6; O2SAT 100
[2021-07-26] MEDS: Loperamide HCl 2 MG CAPSULE 4 MG PO (17:21)
[2021-07-26 17:22] LABS: Appearance Urine CLEAR; Color Urine YELLOW; Glucose Urine UA NEG (NEG); Leukocyte Esterase Urine NEG (NEG); Nitrite Urine NEG (NEG); Specific Gravity - Urine 1.025 (1.005-1.025); Urine Blood NEG (NEG); Urine Ketones 5 MG/DL (NEG); Urine Protein NEG (NEG-TRACE)
[2021-07-26] MEDS: traZODone HCL 100 MG TABLET 200 MG PO (20:33)
[2021-07-26] MEDS: clonazePAM 1 MG TABLET 2 MG PO (20:33)
[2021-07-26] MEDS: Zolpidem Tartrate 5 MG TABLET PO (20:33)
[2021-07-26] MEDS: diphenhydrAMINE HCL 25 MG TABLET PO (21:09)
[2021-07-27 04:42] VITALS: BP 120/80; PULSE 86; RESP 16; TEMP 36.4; O2SAT 100
--- NOTE | 2021-07-27 06:04 | PC.NURSE ---
Patient slept through the night, no distress observed/reported, medication compliant, behavior appropriate, disposition per [facility] is section 12 inpatient bed search, no update on bed search, patient has ileostomy/self care, VSS, will continue to monitor
--- NOTE | 2021-07-27 07:17 | PC.NURSE ---
patient appears to remain asleep at present respirations are even and unlabored, patient appears in no distress
[2021-07-27 07:58] VITALS: BP 111/84; PULSE 92; RESP 15; TEMP 36.8; O2SAT 100
[2021-07-27] MEDS: DULoxetine HCl 60 MG CAPSULE.DR 120 MG PO (08:03)
[2021-07-27] MEDS: Gabapentin 400 MG CAPSULE 800 MG PO ×2 (08:03→21:23)
[2021-07-27] MEDS: Bethanechol Chloride 25 MG TABLET PO ×2 (08:03→16:38)
[2021-07-27 10:19] LABS: COVID-19 Test Negative (Negative)
[2021-07-27] MEDS: Loperamide HCl 2 MG CAPSULE 4 MG PO ×2 (12:44→21:27)
[2021-07-27] MEDS: LORazepam 1 MG TABLET PO (13:58)
--- NOTE | 2021-07-27 15:00 | PC.NURSE ---
Patient is alert and oriented x 4 lung sounds are clear skin is pink warm and dry speaks in full sentences without difficulty aware of plan of care to be admitted to room 517-2, escorted to via wheel chair with staff, security and belongings.
[2021-07-27 16:10] VITALS: BP 128/91; PULSE 90; TEMP 36.2; O2SAT 98
[2021-07-27] MEDS: Benztropine Mesylate 1 MG TABLET PO (16:38)
[2021-07-27] MEDS: HaloperidoL 5 MG TABLET PO (16:39)
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
--- NOTE | 2021-07-27 21:04 | PC.NURSE ---
Pt reported she has received this years flu vaccine.
[2021-07-27] MEDS: Zolpidem Tartrate 5 MG TABLET PO (21:23)
[2021-07-27] MEDS: cloNIDine HCL 0.1 MG TABLET PO (21:24)
[2021-07-27] MEDS: Mirtazapine 7.5 MG TABLET PO (21:24)
[2021-07-27 21:25] VITALS: BP 123/95; PULSE 88
[2021-07-27] MEDS: traZODone HCL 100 MG TABLET PO (21:25)
[2021-07-27] MEDS: clonazePAM 1 MG TABLET 2 MG PO (21:25)
[2021-07-27] MEDS: diphenhydrAMINE HCL 25 MG TABLET PO (21:27)
[2021-07-28 00:22] VITALS: BMI 18.4
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
[2021-07-28 06:00] VITALS: BP 113/87; PULSE 97; TEMP 36.7; O2SAT 100
[2021-07-28 08:31] LABS: Cholesterol 185 mg/dL; HDL Cholesterol 58 mg/dL; LDL Cholesterol Calculated 114 mg/dl; Triglycerides 65 mg/dL
[2021-07-28 08:47] LABS: Estimated Average Glucose 103 mg/dL; Hemoglobin A1c % 5.2 %
[2021-07-28 08:52] LABS: Thyroid Stimulating Hormone 1.48 uIU/mL (0.32-4.0)
[2021-07-28] MEDS: Gabapentin 400 MG CAPSULE 800 MG PO ×2 (09:03→21:46)
[2021-07-28] MEDS: DULoxetine HCl 30 MG CAPSULE.DR 90 MG PO (09:03)
[2021-07-28] MEDS: Bethanechol Chloride 25 MG TABLET PO ×3 (09:03→16:07)
--- NOTE | 2021-07-28 10:24 | P.PNPSI_ITS ---
Subjective Subjective Date of Service: 07/28/21 Reason For Visit: anorexia, SI, S/P OD Interim History: Patient seen and discussed with team. Patient evaluated this morning and upon interview she states Im a little stressed about that situation, referring to her need to straight cath and has to ask staff for the materials, wipes, and mirror. Taking bethanechol chloride for urinary retention. Says I slept awesome last night, didnt have nightmares, has fewer flashbacks- wants to continue trial on clonidine and schedule the bedtime dose. Says she noticed feeling hungrier today, attributes this to remeron but will continue to trial it. Denies withdrawal on lower cymbalta dose. Wants to continue to cross titrate trazdone and remeron. Says she hasnt needed haldol PRN. In the milieu, patient is safe but somewhat withdrawn, anxious, and irritable in behavior. Denies SI/SIB/HI upon inquiry. Says she feels safe. Medication Compliance: Yes Side effects from medications: No Attending Groups: Intermittent Review of Systems Acute medical concerns: No Medical Review of Systems: unchanged Mental Status Exam Mental Status Exam Narrative: A&O. Pt is frail appearing, thin, in hospital attire, hygiene is good. Good eye contact, attentive. No Tics or Tremors. No abnormal involuntary movements. Less guarded, cooperative and engaged. Non-pressured speech, spontaneous with regular rate and rhythm, normal volume and prosody. No prolonged speech latency or dysarthria. Mood is ?better,? affect is anxious, agitated. Denies SI/SIB/HI upon inquiry. Denies A/VH or delusional thought content. Thoughts are coherent but distracted. No known cognitive or memory impairment. Insight/ Judgment is poor due to chronic self harm behaviors and substance use. Diagnostics Vital Signs (24Hr): Vital Signs - 24 hr 07/27/21 16:10 07/27/21 21:25 07/28/21 06:00 Temperature 97.1 F 98.0 F Pulse Rate 90 88 97 Blood Pressure 128/91 H 123/95 H 113/87 Pulse Oximetry 98 100 BMI result 4Bd Body Mass Index 4d 18.4 4d 4d Labs Results: 07/23/21 20:23 07/23/21 20:23 Labs: Laboratory Results - last 48 hr 07/26/21 07/27/21 07/28/21 17:15 09:47 07:53 Estimat Average Glucose 103 Hemoglobin A1c % 5.2 Triglycerides Cholesterol LDL Cholesterol, Calc HDL Cholesterol Vitamin B12 Folate TSH Urine Color YELLOW Urine Appearance CLEAR Urine pH 6.0 Ur Specific [place] 1.025 Urine Protein NEG Urine Glucose (UA) NEG Urine Ketones 5 Urine Blood NEG Urine Nitrite NEG Ur Leukocyte Esterase NEG COVID-19 (MESHA) Negative COVID-19 Clin Com See Note 07/28/21 07/28/21 07:53 07:53 Estimat Average Glucose Hemoglobin A1c % Triglycerides 65 Cholesterol 185 LDL Cholesterol, Calc 114 HDL Cholesterol 58 Vitamin B12 1371 H Folate 17.4 TSH 1.48 Urine Color Urine Appearance Urine pH Ur Specific [place] Urine Protein Urine Glucose (UA) Urine Ketones Urine Blood Urine Nitrite Ur Leukocyte Esterase COVID-19 (MESHA) COVID-19 Clin Com Imaging Radiology Impressions: ITS Impressions Hip/Pelvis X-Ray 07/25/21 21:15 IMPRESSION: No acute fractures or malalignment. Medications Medications Current Medications Acetaminophen (Acetaminophen 325 Mg Tablet) 650 mg PO Q6H PRN PRN Reason: Headache/Pain Mild Scale (1-3) Al Hydroxide/Mg Hydroxide (Magnesium Hydrox/Alum Hydrox 30 Ml Oral.Susp) 30 ml PO Q6H PRN PRN Reason: Heartburn/Nausea Benztropine Mesylate (Benztropine Mesylate 0.5 Mg Tablet) 0.5 mg PO BID PRN PRN Reason: Extrapyramidal Effects Bethanechol Chloride (Bethanechol Chloride 25 Mg Tablet) 25 mg PO TIDAC [facility] Last Admin: 07/28/21 09:03 Dose: 25 mg Documented by: Clonazepam (Clonazepam 1 Mg Tablet) 2 mg PO BEDTIME [facility] Last Admin: 07/27/21 21:25 Dose: 2 mg Documented by: Clonidine HCl (Clonidine Hcl 0.1 Mg Tablet) 0.1 mg PO TID PRN; Protocol PRN Reason: nightmares, hyperarousal, anxiety Last Admin: 07/27/21 21:24 Dose: 0.1 mg Documented by: Diphenhydramine HCl (Diphenhydramine Hcl 25 Mg Tablet) 25 mg PO BEDTIME PRN PRN Reason: Insomnia Last Admin: 07/27/21 21:27 Dose: 25 mg Documented by: Duloxetine HCl (Duloxetine Hcl 30 Mg Capsule.Dr) 90 mg PO DAILY [facility] Last Admin: 07/28/21 09:03 Dose: 90 mg Documented by: Gabapentin (Gabapentin 400 Mg Capsule) 800 mg PO BID [facility] Last Admin: 07/28/21 09:03 Dose: 800 mg Documented by: Haloperidol (Haloperidol 5 Mg Tablet) 5 mg PO BID PRN PRN Reason: agitation Hydroxyzine HCl (Hydroxyzine Hcl 25 Mg Tablet) 25 mg PO BEDTIME PRN PRN Reason: Anxiety Loperamide HCl (Loperamide Hcl 2 Mg Capsule) 4 mg PO Q6H PRN PRN Reason: Diarrhea Last Admin: 07/27/21 21:27 Dose: 4 mg Documented by: Magnesium Hydroxide (Milk Of Magnesia 30 Ml Oral.Susp) 30 ml PO DAILY PRN PRN Reason: Constipation Mirtazapine (Mirtazapine 7.5 Mg Tablet) 7.5 mg PO BEDTIME [facility] Last Admin: 07/27/21 21:24 Dose: 7.5 mg Documented by: Pharmacy Consult (Consult Rx Perform Med Rec) 1 each MISCELLANE ONCE PRN PRN Reason: Consult order Trazodone HCl (Trazodone Hcl 100 Mg Tablet) 100 mg PO BEDTIME [facility] Last Admin: 07/27/21 21:25 Dose: 100 mg Documented by: Allergies Allergies Allergy/AdvReac Type Severity Reaction Status Date / Time buspirone [From Allergy Swelling Verified 07/23/21 19:02 BuSpar] chlorpromazine Allergy Anaphylaxis Verified 07/23/21 19:02 [From Thorazine] lamotrigine [From Allergy Rash Verified 07/23/21 19:02 Lamictal] Sulfa (Sulfonamide Allergy Rash Verified 07/23/21 19:02 Antibiotics) linaclotide [From AdvReac Abdominal Verified 07/23/21 19:02 Linzess] Pain quetiapine [From AdvReac bad side Verified 07/23/21 19:02 Seroquel] effects' topiramate AdvReac Fogginess Verified 07/23/21 19:02 ziprasidone [From AdvReac psychosis Verified 07/23/21 19:02 Geodon] Assessment & Plan Assessment & Plan (1) Anorexia nervosa: Status: Acute Code(s): F50.00 - Anorexia nervosa, unspecified (2) Major depressive disorder, recurrent, moderate: Status: Acute Code(s): F33.1 - Major depressive disorder, recurrent, moderate (3) Opioid use disorder, severe, dependence: Status: Acute Code(s): F11.20 - Opioid dependence, uncomplicated (4) PTSD (post-traumatic stress disorder): Status: Acute Code(s): F43.10 - Post-traumatic stress disorder, unspecified (5) Cocaine use disorder: Status: Acute Code(s): F14.10 - Cocaine abuse, uncomplicated Plan Zuleyma is a 35 y.o. Female who carries a dx of PTSD, likely BPD, anorexia nervosa, polysubstance abuse, and MDD, recurrent episode. She presented to [facility] ED on 07/23/21 reporting passive SI with plan to OD on heroin and disclosed using cocaine and heroin in an attempt to lose weight. Per ED notes, pt intentionally OD on heroin on 07/22/20 as a suicide attempt and was administered narcan at [facility]. Pt has multiple co-morbid medical concerns including ostomy bag, urinary retention, and chronic pain. Has long hx of IPLOC, PHP, and detox. Has OP psych services, psychiatrist is Dr. Anand. Plan: Will start clonidine 0.1 mg TID PRN for sx of nightmares, hyperarousal, and flashbacks; may also help with potential withdrawal (despite denying sx, as pt's BP is elevated). Pt reports positive benefit on PRN haldol 5 mg, will start haldol 5 mg BID PRN for acute agitation. She reports she trialed remeron in the past and didn?t feel it was helpful, however she is willing to take it again as she last trialed it in adolescence. Will lower trazodone to 100 mg and start remeron 7.5 mg QHS to target anxiety, depression, and sleep (may also work more effectively in concert with cymbalta). Will lower cymbalta to 90 mg per pt?s request, as she denies noticing benefit on higher dose and prefers less medication. 07/28/21: No medication changes other than scheduling clonidine 0.1 mg at bedtime for nightmares, hyperarousal, and sleep. Pt would like to ultimately get off trazodone and continue on remeron for sleep. Would consider increasing remeron f or depression, anxiety, and insomnia. Pt continues to deny withdrawal from substances and is not interested in referral for recovery services. Monitor response to medications. Monitor for safety in the milieu. Discharge on stabilization. Patient seen. Chart reviewed. Discussed with team. Obtain collateral contact info?as needed I spent minutes with the patient and/or on the patient floor today, greater than?50% of which was spent counseling/coordinating care. Reason for contiued inpatient stay Substantial Risk for: harm to self, rapid decompensation and med/psych decompensation
[2021-07-28] MEDS: Loperamide HCl 2 MG CAPSULE 4 MG PO ×3 (12:42→21:46)
[2021-07-28] MEDS: cloNIDine HCL 0.1 MG TABLET PO (16:07)
[2021-07-28 18:00] VITALS: BP 112/68; PULSE 92; TEMP 36.7; O2SAT 99
[2021-07-28] MEDS: Benztropine Mesylate 0.5 MG TABLET PO (18:57)
[2021-07-28] MEDS: HaloperidoL 5 MG TABLET PO (18:57)
[2021-07-28] MEDS: hydrOXYzine HCL 25 MG TABLET PO (20:14)
[2021-07-28] MEDS: clonazePAM 1 MG TABLET 2 MG PO (21:46)
[2021-07-28] MEDS: traZODone HCL 100 MG TABLET PO (21:46)
[2021-07-28] MEDS: Mirtazapine 7.5 MG TABLET PO (21:46)
[2021-07-28] MEDS: Zolpidem Tartrate 5 MG TABLET PO (21:46)
[2021-07-28] MEDS: diphenhydrAMINE HCL 25 MG TABLET PO (21:48)
[2021-07-29 06:00] VITALS: BP 109/66; PULSE 79; TEMP 36.5; O2SAT 100
[2021-07-29] MEDS: Gabapentin 400 MG CAPSULE 800 MG PO ×2 (08:05→22:07)
[2021-07-29] MEDS: Loperamide HCl 2 MG CAPSULE 4 MG PO ×4 (08:06→22:07)
[2021-07-29] MEDS: Bethanechol Chloride 25 MG TABLET PO ×3 (08:06→16:07)
[2021-07-29] MEDS: DULoxetine HCl 30 MG CAPSULE.DR 90 MG PO (08:28)
[2021-07-29] MEDS: Benztropine Mesylate 1 MG TABLET PO ×2 (16:33→17:59)
[2021-07-29 18:32] VITALS: BP 121/82; PULSE 85; RESP 18; TEMP 36.2; O2SAT 100
--- NOTE | 2021-07-29 18:53 | HO.PSYCHPN ---
Subjective Subjective Date of Service: 07/29/21 Reason For Visit: anorexia, SI, S/P OD Interim History: Patient initially presented with dystonic reaction of the jaw and tongue fasciculations which were impeding her speech. Patient got Haldol for the past 1-2 nights. She said it started last night but she got Cogentin and Benadryl; she woke up this morning and was only minimally present, however it started increasing throughout the day and became problematic. During interview patient took Cogentin 1 mg which resolved symptoms. Patient shared past psychiatric history with assembly instructions writer including eating disorder, trauma, anxiety and depression and substance abuse. Patient reports that on combination of Prozac 20 mg and Cymbalta 90 mg she was overall well-functioning. She was on this combination for years and felt that she overall did well, was sleeping, was successful at her job, depression and anxiety well treated and eating disorder symptoms improved, including PTSD symptoms and PMDD. combination, with the additions of trazodone 100 mg, Ambien 10 mg, clonazepam 2 mg in gabapentin, she overall slept well. About 4 months ago her psychiatric provider wanted to discontinue her Prozac, concern for serotonin syndrome, though patient denied history of this. It was also around this time that she detoxed off of heroin after having been sober for 15 years, with subsequent trouble sleeping. Patient says that once Prozac was discontinued she got very depressed and Cymbalta was increased to 120 mg. She still had trouble sleeping and her trazodone was increased to 200 mg which she is certain induced hellish nightmares as she had rarely had nightmares in the past and directly coincided with increase trazodone. Patient's depression, PTSD symptoms, anxiety, poor sleep and increasing eating disordered thoughts call last to produce her suicide attempt last week. Patient denies any SI currently and is grateful she is alive, future oriented and wanting to get stable. Patient denies any AVH or any history of manic type symptoms. Buffing Machine Operator and patient discussed options and she would like to get back on the Prozac 20 mg Cymbalta 90 mg as she did stable on this for years. Patient and assembly instructions writer discussed the risks of this combination including serotonin syndrome however patient feels that the benefit far outweighs the risks and she wants to proceed. Also on this combination she was able to sleep with lower trazodone and did not have nightmares. Patient however feels that she probably needs an additional medication at for although she was relatively stable on these medications she felt that had she had more support via medication she might not have relapsed with substance abuse. Patient would like to try, or retry antipsychotic medication at a low dose to see if that is helpful. Patient says that ziprasidone side effect of psychosis may have been confused with other issues going on at the time and she is not sure this is a fair assessment of ziprasidone. Patient is currently ambivalent about mirtazapine. It helped her sleep last night however it can cause increased appetite which she is fearful of. 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 Also of note, patient reports sustained stability while on these medications. Mental Status Exam Mental Status Exam Narrative: A&O. Pt is thin, in casual cloths, well groomed, good hygiene;. Good eye contact, attentive. Tongue fasiculations present; calm, cooperative and engaged. Non-pressured speech, spontaneous with regular rate and rhythm, normal volume and prosody. No prolonged speech latency. Mood is ?better,? affect congruent. Thought content on treatment; Denies SI/SIB/HI upon inquiry. Denies A/VH or delusional thought content. Thought process logical, linear and goal oriented; No known cognitive or memory impairment. Insight/ Judgment impaired but improving. Diagnostics Vital Signs (24Hr): Vital Signs - 24 hr 07/29/21 06:00 07/29/21 18:32 Temperature 97.7 F 97.1 F Pulse Rate 79 85 Respiratory Rate 18 Blood Pressure 109/66 121/82 Pulse Oximetry 100 100 BMI result Body Mass Index 18.4 Labs Results: 07/23/21 20:23 07/23/21 20:23 Labs: Laboratory Results - last 48 hr 07/28/21 07/28/21 07/28/21 07:53 07:53 07:53 Estimat Average Glucose 103 Hemoglobin A1c % 5.2 Triglycerides 65 Cholesterol 185 LDL Cholesterol, Calc 114 HDL Cholesterol 58 Vitamin B12 Cancelled Folate Cancelled TSH 1.48 Imaging Radiology Impressions: ITS Impressions Hip/Pelvis X-Ray 07/25/21 21:15 IMPRESSION: No acute fractures or malalignment. Medications Medications Current Medications Acetaminophen (Acetaminophen 325 Mg Tablet) 650 mg PO Q6H PRN PRN Reason: Headache/Pain Mild Scale (1-3) Al Hydroxide/Mg Hydroxide (Magnesium Hydrox/Alum Hydrox 30 Ml Oral.Susp) 30 ml PO Q6H PRN PRN Reason: Heartburn/Nausea Benztropine Mesylate (Benztropine Mesylate 1 Mg Tablet) 1 mg PO BID PRN PRN Reason: Extrapyramidal Effects Last Admin: 07/29/21 17:59 Dose: 1 mg Documented by: Bethanechol Chloride (Bethanechol Chloride 25 Mg Tablet) 25 mg PO TIDAC [facility]EL[facility] Last Admin: 07/29/21 16:07 Dose: 25 mg Documented by: Clonazepam (Clonazepam 1 Mg Tablet) 2 mg PO BEDTIME [facility] Last Admin: 07/28/21 21:46 Dose: 2 mg Documented by: Clonidine HCl (Clonidine Hcl 0.1 Mg Tablet) 0.1 mg PO BID PRN; Protocol PRN Reason: nightmares, hyperarousal, anxiety Clonidine HCl (Clonidine Hcl 0.1 Mg Tablet) 0.1 mg PO BEDTIME [facility]ELIA; Protocol Last Admin: 07/28/21 16:07 Dose: 0.1 mg Documented by: Diphenhydramine HCl (Diphenhydramine Hcl 25 Mg Tablet) 25 mg PO BEDTIME [facility] Duloxetine HCl (Duloxetine Hcl 30 Mg Capsule.) 90 mg PO DAILY [facility] Last Admin: 07/29/21 08:28 Dose: 90 mg Documented by: Fluoxetine HCl (Fluoxetine Hcl 10 Mg Capsule) 10 mg PO DAILY [facility] Gabapentin (Gabapentin 400 Mg Capsule) 800 mg PO BID [facility] Last Admin: 07/29/21 08:05 Dose: 800 mg Documented by: Hydroxyzine HCl (Hydroxyzine Hcl 25 Mg Tablet) 25 mg PO BEDTIME PRN PRN Reason: Anxiety Last Admin: 07/28/21 20:14 Dose: 25 mg Documented by: Loperamide HCl (Loperamide Hcl 2 Mg Capsule) 4 mg PO Q6H PRN PRN Reason: Diarrhea Last Admin: 07/28/21 21:46 Dose: 4 mg Documented by: Loperamide HCl (Loperamide Hcl 2 Mg Capsule) 4 mg PO Q4H PRN PRN Reason: may take 30 min prior to meals Last Admin: 07/29/21 17:59 Dose: 4 mg Documented by: Magnesium Hydroxide (Milk Of Magnesia 30 Ml Oral.Susp) 30 ml PO DAILY PRN PRN Reason: Constipation Pharmacy Consult (Consult Rx Perform Med Rec) 1 each MISCELLANE ONCE PRN PRN Reason: Consult order Trazodone HCl (Trazodone Hcl 100 Mg Tablet) 100 mg PO BEDTIME [facility] Last Admin: 07/28/21 21:46 Dose: 100 mg Documented by: Zolpidem Tartrate (Zolpidem Tartrate 5 Mg Tablet) 5 mg PO BEDTIME [facility] Allergies Allergies Allergy/AdvReac Type Severity Reaction Status Date / Time buspirone [From BuSpar] Allergy Swelling Verified 07/23/21 19:02 chlorpromazine Allergy Anaphylaxis Verified 07/23/21 19:02 [From Thorazine] lamotrigine [From Lamictal] Allergy Rash Verified 07/23/21 19:02 Sulfa (Sulfonamide Allergy Rash Verified 07/23/21 19:02 Antibiotics) linaclotide [From Linzess] AdvReac Abdominal Verified 07/23/21 19:02 Pain quetiapine [From Seroquel] AdvReac bad side Verified 07/23/21 19:02 effects' topiramate AdvReac Fogginess Verified 07/23/21 19:02 ziprasidone [From Geodon] AdvReac psychosis Verified 07/23/21 19:02 Assessment & Plan Assessment & Plan (1) Major depressive disorder, recurrent, moderate: Status: Acute Code(s): F33.1 - Major depressive disorder, recurrent, moderate (2) Anorexia nervosa: Status: Acute Code(s): F50.00 - Anorexia nervosa, unspecified (3) Opioid use disorder, severe, dependence: Status: Acute Code(s): F11.20 - Opioid dependence, uncomplicated (4) PTSD (post-traumatic stress disorder): Status: Acute Code(s): F43.10 - Post-traumatic stress disorder, unspecified (5) Cocaine use disorder: Status: Acute Code(s): F14.10 - Cocaine abuse, uncomplicated Plan Zuleyma is a 35 y.o. Female who carries a dx of PTSD, likely BPD, anorexia nervosa, polysubstance abuse, and MDD, recurrent episode. She presented [place] [facility] [place]21 reporting passive SI with plan to OD on heroin and disclosed using cocaine and heroin in an attempt to lose weight. Per ED notes, pt intentionally OD on heroin on 07/22/20 as a suicide attempt and was administered narcan at [facility]. Pt has multiple co-morbid medical concerns including ostomy bag, urinary retention, and chronic pain. Has long hx of IPLOC, PHP, and detox. Has OP psych services, psychiatrist is Dr. Anand. Plan: Will start clonidine 0.1 mg TID PRN for sx of nightmares, hyperarousal, and flashbacks; may also help with potential withdrawal (despite denying sx, as pt's BP is elevated). Pt reports positive benefit on PRN haldol 5 mg, will start haldol 5 mg BID PRN for acute agitation. She reports she trialed remeron in the past and didn?t feel it was helpful, however she is willing to take it again as she last trialed it in adolescence. Will lower trazodone to 100 mg and start remeron 7.5 mg QHS to target anxiety, depression, and sleep (may also work more effectively in concert with cymbalta). Will lower cymbalta to 90 mg per pt?s request, as she denies noticing benefit on higher dose and prefers less medication. 07/28/21: No medication changes other than scheduling clonidine 0.1 mg at bedtime for nightmares, hyperarousal, and sleep. Pt would like to ultimately get off trazodone and continue on remeron for sleep. Would consider increasing remeron for depression, anxiety, and insomnia. Pt continues to deny withdrawal from substances and is not interested in referral for recovery services. 07/29 PLAN: -assembly instructions writer meeting patient for the 1st time -patient wants to restart Prozac 20 mg and Cymbalta 90 mg since she was stable on this for years; she feels it is worth the risk of potential side effects including serotonin syndrome which she has never had -patient would like to take mirtazapine 7.5 mg 1 last time to night since she got good sleep; however she is worried about continuing with his medications since it can increase appetite the thought of which is triggering for her -patient reports she has been on Ambien 10 mg for 7 years on which she is slept well; she would like to have Ambien 5 mg scheduled at bedtime in addition to clonazepam 2 mg -patient reports being on clonazepam 2 mg for 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 Monitor for safety in the milieu. Discharge on stabilization. Patient seen. Chart reviewed. Discussed with team. Obtain collateral contact info?as needed I spent minutes with the patient and/or on the patient floor today, greater than?50% of which was spent counseling/coordinating care. Reason for contiued inpatient stay Substantial Risk for: rapid decompensation
[2021-07-29] MEDS: traZODone HCL 100 MG TABLET PO (22:06)
[2021-07-29] MEDS: clonazePAM 1 MG TABLET 2 MG PO (22:06)
[2021-07-29] MEDS: Zolpidem Tartrate 5 MG TABLET PO (22:06)
[2021-07-29] MEDS: Mirtazapine 7.5 MG TABLET PO (22:07)
[2021-07-29] MEDS: cloNIDine HCL 0.1 MG TABLET PO (22:07)
[2021-07-29] MEDS: diphenhydrAMINE HCL 25 MG TABLET PO (22:07)
[2021-07-30] MEDS: hydrOXYzine HCL 25 MG TABLET PO (05:46)
[2021-07-30 05:56] VITALS: BP 120/71; PULSE 87; TEMP 531.9; TEMP 989.5; O2SAT 99
[2021-07-30] MEDS: FLUoxetine HCl 10 MG CAPSULE PO (08:08)
[2021-07-30] MEDS: DULoxetine HCl 30 MG CAPSULE.DR 90 MG PO (08:08)
[2021-07-30] MEDS: Gabapentin 400 MG CAPSULE 800 MG PO ×2 (08:08→21:40)
[2021-07-30] MEDS: Bethanechol Chloride 25 MG TABLET PO ×3 (08:08→16:12)
[2021-07-30] MEDS: Loperamide HCl 2 MG CAPSULE 4 MG PO ×3 (08:11→21:40)
--- NOTE | 2021-07-30 17:04 | P.PNPSI_ITS ---
Subjective Subjective Date of Service: 07/30/21 Reason For Visit: anorexia, SI, S/P OD Interim History: Patient reports poor sleep last night but was happy to conclude that mirtazapine, which she took and was not helpful, is not effective for insomnia and can thus be eliminated. Patient reports all dystonic and tongue fasciculation symptoms have resolved; she also denies nightmares Patient reports that depression is better and SI remains resolved. She remains quite anxious however and continues to have intrusive eating disordered thoughts that are hard to ignore. Patient is fearful about returning home since her most recent Memory is of traumatic nightmares are now associated with her bedroom; patient does however have a plan to deal with this which involves some recheck a relation. Patient discussed her need for sleep and how historically when she has enough sleep she finds that she possesses the skills to manage her emotions; however when she is tired and struggling with insomnia she is less capable and starts to head down the path towards being overwhelmed. [employer] and patient discussed medication regimen and she would like to increase Prozac to 20 mg, her former home dose. Patient wanted to get on an antipsychotic for increased stability, and discussed options, side effects/risks/benefits of several antipsychotic medications and agreed to trial of lurasidone which is lower risk than the others for causing weight gain and also can be sedating which may help with sleep. Also discussed chronic use of clonazepam and Ambien and patient will consider reducing saying if an alternative exists. Also discussed maintenance medication for substance abuse; patient says she has been on Suboxone in the past which caused urinary retention. Patient is open to considering naltrexone Mental Status Exam Mental Status Exam Narrative: A&O. Pt is thin, in casual cloths, well groomed, good hygiene;. Good eye contact, attentive, cooperative and calm; No Tongue fasiculations or dytonic symptoms present; Speech is normal rate, volume and prosody and Non-pressured and spontaneous; No prolonged speech latency. Mood is ?better...anxious,? affect congruent.? Thought content on treatment; Denies SI/SIB/HI upon inquiry. Denies A/VH or delusional thought content. Thought process logical, linear and goal oriented; No known cognitive or memory impairment. Insight/ Judgment impaired but improving. Diagnostics Vital Signs (24Hr): Vital Signs - 24 hr 07/29/21 18:32 07/30/21 05:56 Temperature 97.1 F 989.5 F H Pulse Rate 85 87 Respiratory Rate 18 Blood Pressure 121/82 120/71 Pulse Oximetry 100 99 BMI result Verdana 4 Body Mass Index Verdana 4 18.4 Verdana 4 Verdana 4 Labs Results: 07/23/21 20:23 07/23/21 20:23 Imaging Radiology Impressions: ITS Impressions Hip/Pelvis X-Ray 07/25/21 21:15 IMPRESSION: No acute fractures or malalignment. Medications Medications Current Medications Acetaminophen (Acetaminophen 325 Mg Tablet) 650 mg PO Q6H PRN PRN Reason: Headache/Pain Mild Scale (1-3) Al Hydroxide/Mg Hydroxide (Magnesium Hydrox/Alum Hydrox 30 Ml Oral.Susp) 30 ml PO Q6H PRN PRN Reason: Heartburn/Nausea Benztropine Mesylate (Benztropine Mesylate 1 Mg Tablet) 1 mg PO BID PRN PRN Reason: Extrapyramidal Effects Last Admin: 07/29/21 17:59 Dose: 1 mg Documented by: Bethanechol Chloride (Bethanechol Chloride 25 Mg Tablet) 25 mg PO TIDAC [facility] Last Admin: 07/30/21 16:12 Dose: 25 mg Documented by: Clonazepam (Clonazepam 1 Mg Tablet) 2 mg PO BEDTIME [facility] Last Admin: 07/29/21 22:06 Dose: 2 mg Documented by: Clonidine HCl (Clonidine Hcl 0.1 Mg Tablet) 0.1 mg PO BID PRN; Protocol PRN Reason: nightmares, hyperarousal, anxiety Clonidine HCl (Clonidine Hcl 0.1 Mg Tablet) 0.1 mg PO BEDTIME [facility]; Protocol Last Admin: 07/29/21 22:07 Dose: 0.1 mg Documented by: Diphenhydramine HCl (Diphenhydramine Hcl 25 Mg Tablet) 25 mg PO BEDTIME [facility] Last Admin: 07/29/21 22:07 Dose: 25 mg Documented by: Duloxetine HCl (Duloxetine Hcl 30 Mg Capsule.) 90 mg PO DAILY [facility] Last Admin: 07/30/21 08:08 Dose: 90 mg Documented by: Fluoxetine HCl (Fluoxetine Hcl 20 Mg Capsule) 20 mg PO DAILY [facility] Gabapentin (Gabapentin 400 Mg Capsule) 800 mg PO BID [facility] Last Admin: 07/30/21 08:08 Dose: 800 mg Documented by: Hydroxyzine HCl (Hydroxyzine Hcl 25 Mg Tablet) 25 mg PO BEDTIME PRN PRN Reason: Anxiety Last Admin: 07/30/21 05:46 Dose: 25 mg Documented by: Loperamide HCl (Loperamide Hcl 2 Mg Capsule) 4 mg PO Q6H PRN PRN Reason: Diarrhea Last Admin: 07/30/21 12:27 Dose: 4 mg Documented by: Loperamide HCl (Loperamide Hcl 2 Mg Capsule) 4 mg PO Q4H PRN PRN Reason: may take 30 min prior to meals Last Admin: 07/30/21 08:11 Dose: 4 mg Documented by: Lurasidone HCl (Lurasidone Hcl 20 Mg Tablet) 20 mg PO BEDTIME [facility] Magnesium Hydroxide (Milk Of Magnesia 30 Ml Oral.Susp) 30 ml PO DAILY PRN PRN Reason: Constipation Pharmacy Consult (Consult Rx Perform Med Rec) 1 each MISCELLANE ONCE PRN PRN Reason: Consult order Trazodone HCl (Trazodone Hcl 100 Mg Tablet) 100 mg PO BEDTIME [facility] Last Admin: 07/29/21 22:06 Dose: 100 mg Documented by: Zolpidem Tartrate (Zolpidem Tartrate 5 Mg Tablet) 5 mg PO BEDTIME [facility] Last Admin: 07/29/21 22:06 Dose: 5 mg Documented by: Allergies Allergies Allergy/AdvReac Type Severity Reaction Status Date / Time buspirone [From Allergy Swelling Verified 07/23/21 19:02 BuSpar] chlorpromazine Allergy Anaphylaxis Verified 07/23/21 19:02 [From Thorazine] lamotrigine [From Allergy Rash Verified 07/23/21 19:02 Lamictal] Sulfa (Sulfonamide Allergy Rash Verified 07/23/21 19:02 Antibiotics) linaclotide [From AdvReac Abdominal Verified 07/23/21 19:02 Linzess] Pain quetiapine [From AdvReac bad side Verified 07/23/21 19:02 Seroquel] effects' topiramate AdvReac Fogginess Verified 07/23/21 19:02 ziprasidone [From AdvReac psychosis Verified 07/23/21 19:02 Geodon] Assessment & Plan Assessment & Plan (1) Major depressive disorder, recurrent, moderate: Status: Acute Code(s): F33.1 - Major depressive disorder, recurrent, moderate (2) Anorexia nervosa: Status: Acute Code(s): F50.00 - Anorexia nervosa, unspecified (3) Opioid use disorder, severe, dependence: Status: Acute Code(s): F11.20 - Opioid dependence, uncomplicated (4) PTSD (post-traumatic stress disorder): Status: Acute Code(s): F43.10 - Post-traumatic stress disorder, unspecified (5) Cocaine use disorder: Status: Acute Code(s): F14.10 - Cocaine abuse, uncomplicated Plan Zuleyma is a 35 y.o. Female who carries a dx of PTSD, likely BPD, anorexia nervosa, polysubstance abuse, and MDD, recurrent episode. She presented to [facility] ED on 07/23/21 reporting passive SI with plan to OD on heroin and disclosed using cocaine and heroin in an attempt to lose weight. Per ED notes, pt intentionally OD on heroin on 07/22/20 as a suicide attempt and was administered narcan at [facility]. Pt has multiple co-morbid medical concerns including ostomy bag, urinary retention, and chronic pain. Has long hx of IPLOC, PHP, and detox. Has OP psych services, psychiatrist is Dr. Anand. Plan: Will start clonidine 0.1 mg TID PRN for sx of nightmares, hyperarousal, and flashbacks; may also help with potential withdrawal (despite denying sx, as pt's BP is elevated). Pt reports positive benefit on PRN haldol 5 mg, will start haldol 5 mg BID PRN for acute agitation. She reports she trialed remeron in the past and didn?t feel it was helpful, however she is willing to take it again as she last trialed it in adolescence. Will lower trazodone to 100 mg and start remeron 7.5 mg QHS to target anxiety, depression, and sleep (may also work more effectively in concert with cymbalta). Will lower cymbalta to 90 mg per pt?s request, as she denies noticing benefit on higher dose and prefers less medication. 07/28/21: No medication changes other than scheduling clonidine 0.1 mg at bedtime for nightmares, hyperarousal, and sleep. Pt would like to ultimately get off trazodone and continue on remeron for sleep. Would consider increasing remeron for depression, anxiety, and insomnia. Pt continues to deny withdrawal from substances and is not interested in referral for recovery services. 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 Monitor for safety in the milieu. Discharge on stabilization. Patient seen. Chart reviewed. Discussed with team. Obtain collateral contact info?as needed I spent minutes with the patient and/or on the patient floor today, greater than?50% of which was spent counseling/coordinating care. Reason for contiued inpatient stay Substantial Risk for: rapid decompensation
[2021-07-30 21:24] VITALS: BP 106/68; PULSE 73; TEMP 36.4; O2SAT 100
[2021-07-30] MEDS: clonazePAM 1 MG TABLET 2 MG PO (21:39)
[2021-07-30] MEDS: diphenhydrAMINE HCL 25 MG TABLET PO (21:40)
[2021-07-30] MEDS: traZODone HCL 100 MG TABLET PO (21:40)
[2021-07-30] MEDS: Lurasidone HCl 20 MG TABLET PO (21:40)
[2021-07-30] MEDS: Zolpidem Tartrate 5 MG TABLET PO (21:40)
[2021-07-30] MEDS: cloNIDine HCL 0.1 MG TABLET PO (21:40)
[2021-07-31 05:54] VITALS: BP 110/67; PULSE 76; TEMP 36.4; O2SAT 99
[2021-07-31] MEDS: Loperamide HCl 2 MG CAPSULE 4 MG PO ×3 (06:56→17:28)
[2021-07-31] MEDS: DULoxetine HCl 30 MG CAPSULE.DR 90 MG PO (08:55)
[2021-07-31] MEDS: FLUoxetine HCl 20 MG CAPSULE PO (08:55)
[2021-07-31] MEDS: Bethanechol Chloride 25 MG TABLET PO ×3 (08:56→15:44)
[2021-07-31] MEDS: Gabapentin 400 MG CAPSULE 800 MG PO ×2 (08:56→21:57)
[2021-07-31] MEDS: Acetaminophen 325 MG TABLET 650 MG PO ×2 (11:05→19:10)
[2021-07-31] MEDS: Gabapentin 400 MG CAPSULE PO (13:47)
--- NOTE | 2021-07-31 18:12 | P.PNPSI_ITS ---
Subjective Subjective Date of Service: 07/31/21 Reason For Visit: anorexia, SI, S/P OD Interim History: discussed meds which are tolerated; pt had nightmare last night, but a normal one, not one based on past trauma which she felt excited about and helped her feel more normal overall. Also says able to eat more w/out feeling triggered which is welcoming sign to her as she has ongoing struggles with eating disordered thinking. pt shared detail about some origins of traumatic thinking. Pt still anxious about going home, but feels she will be able to cope discussed hx of substance abuse and pt wants to get on Naltrexone PO (reviewed risks/side-effects) Mental Status Exam Mental Status Exam Narrative: A&O. Pt is thin, in casual cloths, well groomed, good hygiene;. Good eye cont act, attentive, cooperative and calm; No Tongue fasiculations or dytonic symptoms present; Speech is normal rate, volume and prosody and Non-pressured and spontaneous;? No prolonged speech latency. Mood is ?better...anxious,? affect congruent.? Thought content on treatment; Denies SI/SIB/HI upon inquiry. Denies A/VH or delusional thought content. Thought process logical, linear and goal oriented; No known cognitive or memory impairment. Insight/ Judgment impaired but adequate. Diagnostics Vital Signs (24Hr): Vital Signs - 24 hr 07/30/21 21:24 07/31/21 05:54 Temperature 97.5 F 97.6 F Pulse Rate 73 76 Blood Pressure 106/68 110/67 Pulse Oximetry 100 99 BMI result Verdana 4 Body Mass Index Verdana 4 18.4 Verdana 4 Verdana 4 Labs Results: 07/23/21 20:23 07/23/21 20:23 Imaging Radiology Impressions: ITS Impressions Hip/Pelvis X-Ray 07/25/21 21:15 IMPRESSION: No acute fractures or malalignment. Medications Medications Current Medications Acetaminophen (Acetaminophen 325 Mg Tablet) 650 mg PO Q6H PRN PRN Reason: Headache/Pain Mild Scale (1-3) Last Admin: 07/31/21 11:05 Dose: 650 mg Documented by: Al Hydroxide/Mg Hydroxide (Magnesium Hydrox/Alum Hydrox 30 Ml Oral.Susp) 30 ml PO Q6H PRN PRN Reason: Heartburn/Nausea Benztropine Mesylate (Benztropine Mesylate 1 Mg Tablet) 1 mg PO BID PRN PRN Reason: Extrapyramidal Effects Last Admin: 07/29/21 17:59 Dose: 1 mg Documented by: Bethanechol Chloride (Bethanechol Chloride 25 Mg Tablet) 25 mg PO TIDAC [facility] Last Admin: 07/31/21 15:44 Dose: 25 mg Documented by: Clonazepam (Clonazepam 1 Mg Tablet) 2 mg PO BEDTIME [facility] Last Admin: 07/30/21 21:39 Dose: 2 mg Documented by: Clonidine HCl (Clonidine Hcl 0.1 Mg Tablet) 0.1 mg PO BID PRN; Protocol PRN Reason: nightmares, hyperarousal, anxiety Clonidine HCl (Clonidine Hcl 0.1 Mg Tablet) 0.1 mg PO BEDTIME [facility]EL[facility]; Protocol Last Admin: 07/30/21 21:40 Dose: 0.1 mg Documented by: Diphenhydramine HCl (Diphenhydramine Hcl 25 Mg Tablet) 25 mg PO BEDTIME [facility] Last Admin: 07/30/21 21:40 Dose: 25 mg Documented by: Duloxetine HCl (Duloxetine Hcl 30 Mg Capsule.Dr) 90 mg PO DAILY [facility] Last Admin: 07/31/21 08:55 Dose: 90 mg Documented by: Fluoxetine HCl (Fluoxetine Hcl 20 Mg Capsule) 20 mg PO DAILY [facility] Last Admin: 07/31/21 08:55 Dose: 20 mg Documented by: Gabapentin (Gabapentin 400 Mg Capsule) 800 mg PO BID [facility] Last Admin: 07/31/21 08:56 Dose: 800 mg Documented by: Gabapentin (Gabapentin 400 Mg Capsule) 400 mg PO DAILY PRN PRN Reason: breakthrough neuropathic pain Last Admin: 07/31/21 13:47 Dose: 400 mg Documented by: Hydroxyzine HCl (Hydroxyzine Hcl 25 Mg Tablet) 25 mg PO BEDTIME PRN PRN Reason: Anxiety Last Admin: 07/30/21 05:46 Dose: 25 mg Documented by: Loperamide HCl (Loperamide Hcl 2 Mg Capsule) 4 mg PO Q6H PRN PRN Reason: Diarrhea Last Admin: 07/31/21 17:28 Dose: 4 mg Documented by: Loperamide HCl (Loperamide Hcl 2 Mg Capsule) 4 mg PO Q4H PRN PRN Reason: may take 30 min prior to meals Last Admin: 07/31/21 06:56 Dose: 4 mg Documented by: Lurasidone HCl (Lurasidone Hcl 20 Mg Tablet) 20 mg PO BEDTIME [facility] Last Admin: 07/30/21 21:40 Dose: 20 mg Documented by: Magnesium Hydroxide (Milk Of Magnesia 30 Ml Oral.Susp) 30 ml PO DAILY PRN PRN Reason: Constipation Naltrexone HCl (Naltrexone Hcl 50 Mg Tablet) 25 mg PO DAILY [facility] Pharmacy Consult (Consult Rx Perform Med Rec) 1 each MISCELLANE ONCE PRN PRN Reason: Consult order Trazodone HCl (Trazodone Hcl 100 Mg Tablet) 100 mg PO BEDTIME [facility] Last Admin: 07/30/21 21:40 Dose: 100 mg Documented by: Zolpidem Tartrate (Zolpidem Tartrate 5 Mg Tablet) 5 mg PO BEDTIME [facility] Last Admin: 07/30/21 21:40 Dose: 5 mg Documented by: Allergies Allergies Allergy/AdvReac Type Severity Reaction Status Date / Time buspirone [From Allergy Swelling Verified 07/23/21 19:02 BuSpar] chlorpromazine Allergy Anaphylaxis Verified 07/23/21 19:02 [From Thorazine] lamotrigine [From Allergy Rash Verified 07/23/21 19:02 Lamictal] Sulfa (Sulfonamide Allergy Rash Verified 07/23/21 19:02 Antibiotics) linaclotide [From AdvReac Abdominal Verified 07/23/21 19:02 Linzess] Pain quetiapine [From AdvReac bad side Verified 07/23/21 19:02 Seroquel] effects' topiramate AdvReac Fogginess Verified 07/23/21 19:02 ziprasidone [From AdvReac psychosis Verified 07/23/21 19:02 Geodon] Assessment & Plan Assessment & Plan (1) Major depressive disorder, recurrent, moderate: Status: Acute Code(s): F33.1 - Major depressive disorder, recurrent, moderate (2) Anorexia nervosa: Status: Acute Code(s): F50.00 - Anorexia nervosa, unspecified (3) Opioid use disorder, severe, dependence: Status: Acute Code(s): F11.20 - Opioid dependence, uncomplicated (4) PTSD (post-traumatic stress disorder): Status: Acute Code(s): F43.10 - Post-traumatic stress disorder, unspecified (5) Cocaine use disorder: Status: Acute Code(s): F14.10 - Cocaine abuse, uncomplicated Plan Zuleyma is a 35 y.o. Female who carries a dx of PTSD, likely BPD, anorexia nervosa, polysubstance abuse, and MDD, recurrent episode. She presented to [facility] ED on 07/23/21 reporting passive SI with plan to OD on heroin and disclosed using cocaine and heroin in an attempt to lose weight. Per ED notes, pt intentionally OD on heroin on 07/22/20 as a suicide attempt and was administered narcan at [facility]. Pt has multiple co-morbid medical concerns including ostomy bag, urinary retention, and chronic pain. Has long hx of IPLOC, PHP, and detox. Has OP psych services, psychiatrist is Dr. Anand. Plan: Will start clonidine 0.1 mg TID PRN for sx of nightmares, hyperarousal, and flashbacks; may also help with potential withdrawal (despite denying sx, as pt's BP is elevated). Pt reports positive benefit on PRN haldol 5 mg, will start haldol 5 mg BID PRN for acute agitation. She reports she trialed remeron in the past and didn?t feel it was helpful, however she is willing to take it again as she last trialed it in adolescence. Will lower trazodone to 100 mg and start remeron 7.5 mg QHS to target anxiety, depression, and sleep (may also work more effectively in concert with cymbalta). Will lower cymbalta to 90 mg per pt?s request, as she denies noticing benefit on higher dose and prefers less medicati on. 07/28/21: No medication changes other than scheduling clonidine 0.1 mg at bedtime for nightmares, hyperarousal, and sleep. Pt would like to ultimately get off trazodone and continue on remeron for sleep. Would consider increasing remeron for depression, anxiety, and insomnia. Pt continues to deny withdrawal from substances and is not interested in referral for recovery services. 07/31 stabilizing; no si/hi/avh; depression better; anxious but feels able to cope; feels she is safe; future oriented, hoping to return to work in couple of months; would like to dc on Tuesday to which telegraphic typewriter mechanic agrees. PLAN: ADD Naltrexone 25mg for substance abuse issues will get lfts -continue Lurasidone 20mg qhs -continue Prozac 20 mg and Cymbalta 90 mg since she was stable on this for years; she feels it is worth the risk of potential side effects including serotonin syndrome which she has never had -DC mirtazapine; Not helpful for insomnia; -continue ambien 5mg qhs; patient reports she has been on Ambien 10 mg for 7 years on which she is slept well; she would like to have Ambien 5 mg scheduled at bedtime in addition to clonazepam 2 mg -continue clonazepam 2 mg qhs; patient reports being on clonazepam 2 mg for 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 Monitor for safety in the milieu. Discharge on stabilization. Patient seen. Chart reviewed. Discussed with team. Obtain collateral contact info?as needed I spent minutes with the patient and/or on the patient floor today, greater than?50% of which was spent counseling/coordinating care. Reason for contiued inpatient stay Substantial Risk for: stable for discharge
[2021-07-31 18:45] VITALS: BP 123/69; PULSE 74; RESP 18; TEMP 37; O2SAT 100
[2021-07-31] MEDS: Lurasidone HCl 20 MG TABLET PO (21:57)
[2021-07-31] MEDS: Zolpidem Tartrate 5 MG TABLET PO (21:57)
[2021-07-31] MEDS: clonazePAM 1 MG TABLET 2 MG PO (21:57)
[2021-07-31] MEDS: diphenhydrAMINE HCL 25 MG TABLET PO (21:57)
[2021-07-31] MEDS: traZODone HCL 100 MG TABLET PO (21:57)
[2021-08-01] MEDS: Acetaminophen 325 MG TABLET 650 MG PO (05:44)
[2021-08-01 06:00] VITALS: BP 109/70; PULSE 60; RESP 18; TEMP 36.9; O2SAT 99
[2021-08-01] MEDS: Loperamide HCl 2 MG CAPSULE 4 MG PO ×3 (08:01→13:20)
[2021-08-01] MEDS: Naltrexone HCl 50 MG TABLET 25 MG PO (08:36)
[2021-08-01] MEDS: FLUoxetine HCl 20 MG CAPSULE PO (08:37)
[2021-08-01] MEDS: Gabapentin 400 MG CAPSULE 800 MG PO ×2 (08:37→22:34)
[2021-08-01] MEDS: Bethanechol Chloride 25 MG TABLET PO ×3 (08:37→17:26)
[2021-08-01] MEDS: DULoxetine HCl 30 MG CAPSULE.DR 90 MG PO (08:37)
[2021-08-01 12:57] VITALS: BP 138/71; PULSE 74; RESP 18; TEMP 36.4; O2SAT 99
[2021-08-01] MEDS: HYDROmorphone HCl 2 MG TABLET 1 MG PO (13:19)
--- NOTE | 2021-08-01 13:35 | P.CONIM_ITS ---
History of Present Illness Data of Consult Service Date: 08/01/21 Primary Care Provider: Caroline Thapa MD [facility] Reason for consult: Abdominal pain A 35 years old lady with PMH of drug abuse, anorexia nervosa, depression, post ileostomy who started to complain of abdominal pain today. The patient was admitted to the psych floor for suicidal intention. Started on treatment with naltrexone to help with drug abuse. Reported abdominal pain mainly epigastric not radiating anywhere not associated with any nausea or vomiting but has few episodes of watery stool. Denies any fever, chills, chest pain or urinary symptoms. Hospitalist team was asked to evaluate the patient. 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 Primary fibromyalgia syndrome Self-catheterizes urinary bladder Social History Household Members: Significant Other Housing: House Do you presently have visiting nurse or other home services: No Patient Tobacco Use Status: Current someday Tobacco user Tobacco use type: Cigarette Cigarettes Per Day: 1 Years Smoked: Started age 17 Smoked in Last 30 Days: Yes e-Cigarette/Vaping Use: Never Used Patient Interested in Nicotine Replacement: No Patient Given Instructions on How to Stop Smoking: Yes Date Education Initiated: 07/27/21 Second Hand Smoke Exposure: No Use of substances other than those prescribed or required for medical reasons: Yes Substance Use Type: Crack/Cocaine and Heroin Substance Use Frequency: Chronic Longstanding Last Used Substance: Days (ago) Currently Displaying Signs/Symptoms of Drug Intoxication Withdrawal: No Any prior treatment program specific to substance use: Yes Have you been hit, kicked, punched, or otherwise hurt by someone within the past year? If so, by whom?: No Do you feel safe in your current relationship?: Yes Is there a partner from a previous relationship who is making you feel unsafe now?: Yes Are you made to feel afraid or neglected: No Spiritual Healthcare Practices: None Gnosticism Healthcare Practices: None Cultural Healthcare Practices: None Advance Directives: No Advance Directives Information Provided: Yes Advance Directives on File: No Do you have thoughts of harming others: None Do you have a plan to hurt others: No Plan Recently lost weight without trying: No How much weight loss: 2-13 pounds Eating poorly because of decreased appetite: No Nutrition screen score: 1 Nutrition Risks: Anorexia Patient : No : No Poor oral hygiene: Yes service: No Sexual orientation: Straight/Heterosexual Meds Allergies Allergy/AdvReac Type Severity Reaction Status Date / Time buspirone [From Allergy Swelling Verified 07/23/21 19:02 BuSpar] chlorpromazine Allergy Anaphylaxis Verified 07/23/21 19:02 [From Thorazine] lamotrigine [From Allergy Rash Verified 07/23/21 19:02 Lamictal] Sulfa (Sulfonamide Allergy Rash Verified 07/23/21 19:02 Antibiotics) linaclotide [From AdvReac Abdominal Verified 07/23/21 19:02 Linzess] Pain quetiapine [From AdvReac bad side Verified 07/23/21 19:02 Seroquel] effects' topiramate AdvReac Fogginess Verified 07/23/21 19:02 ziprasidone [From AdvReac psychosis Verified 07/23/21 19:02 Geodon] Active Medications: Current Medications Acetaminophen (Acetaminophen 325 Mg Tablet) 650 mg PO Q6H PRN PRN Reason: Headache/Pain Mild Scale (1-3) Last Admin: 08/01/21 05:44 Dose: 650 mg Documented by: Al Hydroxide/Mg Hydroxide (Magnesium Hydrox/Alum Hydrox 30 Ml Oral.Susp) 30 ml PO Q6H PRN PRN Reason: Heartburn/Nausea Benztropine Mesylate (Benztropine Mesylate 1 Mg Tablet) 1 mg PO BID PRN PRN Reason: Extrapyramidal Effects Last Admin: 07/29/21 17:59 Dose: 1 mg Documented by: Bethanechol Chloride (Bethanechol Chloride 25 Mg Tablet) 25 mg PO TIDAC [facility] Last Admin: 08/01/21 13:19 Dose: 25 mg Documented by: Clonazepam (Clonazepam 1 Mg Tablet) 2 mg PO BEDTIME [facility] Last Admin: 07/31/21 21:57 Dose: 2 mg Documented by: Clonidine HCl (Clonidine Hcl 0.1 Mg Tablet) 0.1 mg PO BID PRN; Protocol PRN Reason: nightmares, hyperarousal, anxiety Clonidine HCl (Clonidine Hcl 0.1 Mg Tablet) 0.1 mg PO BEDTIME [facility]; Protocol Last Admin: 07/31/21 22:53 Dose: Not Given Documented by: Diphenhydramine HCl (Diphenhydramine Hcl 25 Mg Tablet) 25 mg PO BEDTIME [facility] Last Admin: 07/31/21 21:57 Dose: 25 mg Documented by: Duloxetine HCl (Duloxetine Hcl 30 Mg Capsule.Dr) 90 mg PO DAILY [facility] Last Admin: 08/01/21 08:37 Dose: 90 mg Documented by: Fluoxetine HCl (Fluoxetine Hcl 20 Mg Capsule) 20 mg PO DAILY [facility] Last Admin: 08/01/21 08:37 Dose: 20 mg Documented by: Gabapentin (Gabapentin 400 Mg Capsule) 800 mg PO BID [facility] Last Admin: 08/01/21 08:37 Dose: 800 mg Documented by: Gabapentin (Gabapentin 400 Mg Capsule) 400 mg PO DAILY PRN PRN Reason: breakthrough neuropathic pain Last Admin: 07/31/21 13:47 Dose: 400 mg Documented by: Hydroxyzine HCl (Hydroxyzine Hcl 25 Mg Tablet) 25 mg PO BEDTIME PRN PRN Reason: Anxiety Last Admin: 07/30/21 05:46 Dose: 25 mg Documented by: Loperamide HCl (Loperamide Hcl 2 Mg Capsule) 4 mg PO Q6H PRN PRN Reason: Diarrhea Last Admin: 08/01/21 13:20 Dose: 4 mg Documented by: Loperamide HCl (Loperamide Hcl 2 Mg Capsule) 4 mg PO Q4H PRN PRN Reason: may take 30 min prior to meals Last Admin: 08/01/21 08:52 Dose: 4 mg Documented by: Lurasidone HCl (Lurasidone Hcl 20 Mg Tablet) 20 mg PO BEDTIME [facility] Last Admin: 07/31/21 21:57 Dose: 20 mg Documented by: Magnesium Hydroxide (Milk Of Magnesia 30 Ml Oral.Susp) 30 ml PO DAILY PRN PRN Reason: Constipation Naltrexone HCl (Naltrexone Hcl 50 Mg Tablet) 25 mg PO DAILY [facility] Last Admin: 08/01/21 08:36 Dose: 25 mg Documented by: Pharmacy Consult (Consult Rx Perform Med Rec) 1 each MISCELLANE ONCE PRN PRN Reason: Consult order Trazodone HCl (Trazodone Hcl 100 Mg Tablet) 100 mg PO BEDTIME [facility] Last Admin: 07/31/21 21:57 Dose: 100 mg Documented by: Zolpidem Tartrate (Zolpidem Tartrate 5 Mg Tablet) 5 mg PO BEDTIME [facility] Last Admin: 07/31/21 21:57 Dose: 5 mg Documented by: Home Medications Medication Instructions Recorded Confirmed Last Taken Type duloxetine 60 mg 120 mg PO DAILY 10/31/20 07/24/21 07/23/21 History capsule,delayed release (Cymbalta) gabapentin 800 mg 800 mg PO BID 10/31/20 07/24/21 07/22/21 History tablet trazodone 100 mg 200 mg PO 10/31/20 07/23/21 07/22/21 History tablet BEDTIME diphenhydramine 25 mg PO BEDTIME 07/23/21 07/23/21 07/22/21 History HCl 25 mg capsule PRN ([employer] [facility]) loperamide 2 mg 2 cap PO Q6H PRN 07/23/21 07/23/21 07/22/21 History capsule zolpidem 10 mg 1 tab PO BEDTIME 07/23/21 07/23/21 07/22/21 History tablet bethanechol 1 tab PO TID 07/26/21 07/26/21 Unknown History chloride 25 mg tablet Physical Exam Verdana 4l Vital Signs and Narrative: Verdana 4d Verdana 4d Vital Signs: Verdana 4d Verdana 4Bd Last Vital Signs Verdana 4d Imaging Account Manager New 4d Imaging Account Manager New 4d Temp 97.6 F 08/01/21 12:57 Imaging Account Manager New 4d Pulse 74 08/01/21 12:57 Imaging Account Manager New 4d Resp 18 08/01/21 12:57 BP 138/71 08/01/21 12:57 Pulse Ox 99 08/01/21 12:57 BMI result Body Mass Index 18.4 Const: Other: Constitutional : Alert, oriented, not in distress Neck : Normal inspection, Supple Cardiovascular : RRR, S1 S2, no lower extremity edema Respiratory : Good bilateral air entry, no crackles, wheezes or rhonchi Gastrointestinal: soft, lax, decrease bowel sounds, Non tender, ostomy in place and the bag is almost empty but has small amount of liquid stool Skin : Warm, Dry Neurological : Alert & oriented x3, No focal deficit Results Labs CBC and Chem 7: 08/01/21 13:21 08/01/21 13:21 Labs: Laboratory Results - last 24 hr 08/01/21 13:21 MCV Cancelled MCH Cancelled MCHC Cancelled RDW Cancelled Plt Count Cancelled MPV Cancelled Absolute Nucleated RBC Cancelled Nucleated RBC % (auto) Cancelled Assessment and Plan (1) Cocaine use disorder: Status: Acute (2) Abdominal pain: Status: Acute Plan A 35 years old lady with PMH of drug abuse, anorexia nervosa, depression, post ileostomy who started to complain of abdominal pain today. Abdominal pain Blood work negative for any source of infection CT scan showing possible ileus Symptomatic mccoy the patient has no nausea or vomiting, having bowel movement which makes it less likely to have bowel obstruction To use Reglan around mealtime Tolerating diet will continue to monitor Pseudo hyper calcemia Corrected calcium of 10.3 Thank you for the consult, will continue to monitor the patient, please contact hospitalist the with any questions
[2021-08-01 13:42] LABS: Basophils Percent Auto 0.3 % (0-2); Eosinophils Absolute Auto 0.2 X10*3/uL (0.0-0.4); Eosinophils Percent Auto 1.5 % (0-4); Hematocrit 43.6 % (37.0-47.0); Hemoglobin 14.3 g/dl (12.0-16.0); Imm Gran Abs Auto 0.02 X10*3/uL (0.00-0.03); Imm Gran Pct Auto 0.2 % (0.0-0.4); Lymphocytes Absolute Auto 1.2 X10*3/uL (1.2-4.9); Lymphocytes Percent Auto 11.8 % (20-40); MANUAL DIFF FLAG NO; Mean Corpuscular HGB Conc 32.8 g/dl (31.0-35.0); Mean Corpuscular Hemoglobin 29.2 pg (27.0-33.0); Mean Platelet Volume 9.8 fL (9.4-12.3); Monocytes Absolute Auto 0.4 X10*3/uL (0.1-1.2); Monocytes Percent Auto 3.8 % (2-11); Neutrophils Absolute Auto 8.1 x10*3/uL (2.0-8.3); Neutrophils Percent Auto 82.4 % (45-73); Platelet Count 329 X10*3/uL (160-400); Red Cell Distribution Width 12.9 % (11.0-16.0); White Blood Count 9.8 X10*3/uL (4.8-10.8)
[2021-08-01 13:45] LABS: Alanine Aminotransferase 24 U/L (0-31); Alkaline Phosphatase 82 U/L (39-117); Amylase 96 U/L (28-100); Anion Gap 14 (12-20); Aspartate Amino Transferase 26 U/L (5-31); Bilirubin Direct 0.3 mg/dL (0.0-0.5); Bilirubin Total 0.6 mg/dL (0.0-1.0); Blood Urea Nitrogen 10 mg/dL (9-16); Calcium 11.1 mg/dL (8.4-10.2); Carbon Dioxide 29 mmol/L (22-29); Chloride 99 mmol/L (96-108); Creatinine Clr Calc Pharmacy 72.8; Estimated Glomerular Filt Rate > 60; Glucose Random 101 mg/dL (60-115); Lipase 51 U/L (8-78); Potassium 3.7 mmol/L (3.3-5.1); Sodium 138 mmol/L (135-145); Total Protein 8.7 g/dL (6.5-8.0)
[2021-08-01] MEDS: Ketorolac Tromethamine 30 MG/ML VIAL IM (17:26)
--- NOTE | 2021-08-01 17:53 | PC.NURSE ---
This RN administered 30mg Toradol IM at 17:26. At around 17:45 patient began vomiting. Vitals: T: 98.0 BP 129/83 HR: 91 O2: 100%. Notified Dr. Bravo.
--- NOTE | 2021-08-01 18:37 | PC.NURSE ---
Pt's boyfriend called, pt gave verbal consent for staff to communicate with him and provide him with any updates.
[2021-08-01 20:17] VITALS: BMI 18.8
[2021-08-01] MEDS: Lactated Ringers 1,000 ML 100 ML IVCONT (20:49)
[2021-08-01] MEDS: HYDROmorphone HCl 1 MG/ML SYRINGE 0.5 MG IVPUSH ×2 (20:50→22:52)
[2021-08-01] MEDS: ondansetron HCL 4 MG/2 ML VIAL IVPUSH (20:50)
[2021-08-01 21:16] VITALS: BP 118/70; PULSE 74; RESP 18; TEMP 36.2; O2SAT 97
--- NOTE | 2021-08-01 21:27 | HO.PSYCHPN ---
Subjective Subjective Date of Service: 08/01/21 Reason For Visit: anorexia, SI, S/P OD Interim History: Patient was complaining of abdominal pain this morning. She was saying it was around the colostomy area. It was stabbing. She says it was 10/10. She was irritable and angry because she felt she was not attended to. She said it felt like kidney stones. She was tearful> She was seen. Discussion with hospitalist was done. She had blood work orderd and hospitalist came and evaluated patient. She was sent for an abdominal CT scan. She was screaming that people are not paying attention to her. She at one point went to the room and broke a plastic bin and took pieces off to try to harm self. She was placed on 5 min checks. Review of Systems Review of Systems No fever, chills or weakness No chest pain, palpitation No shortness of breath or coughing Reporting epigastric abdominal pain with associated watery stool from ostomy No urinary symptoms No any rash or wounds Mental Status Exam Mental Status Exam Narrative: A&O. Pt is thin, in casual cloths, well groomed, good hygiene;. Good eye contact, attentive, irritable. No Tongue fasiculations or dytonic symptoms present; Speech is loud volume and prosody and pressured.? No prolonged speech latency. Mood is angry affect irritble and labile.? Thought content on treatment; Denies SI/SIB/HI upon inquiry. Denies A/VH or delusional thought content. Thought process perseverative; No known cognitive or memory impairment. Insight/ Judgment impaired but adequate. Diagnostics Vital Signs (24Hr): Vital Signs - 24 hr 08/01/21 06:00 08/01/21 12:57 08/01/21 21:16 Temperature 98.5 F 97.6 F 97.2 F Pulse Rate 60 74 74 Respiratory Rate 18 18 18 Blood Pressure 109/70 138/71 118/70 Pulse Oximetry 99 99 97 BMI result Body Mass Index 18.8 Labs Results: 08/01/21 13:21 08/01/21 13:21 Labs: Laboratory Results - last 48 hr 08/01/21 08/01/21 08/01/21 13:21 13:21 13:21 WBC 9.8 Cancelled RBC 4.90 Cancelled Hgb 14.3 Cancelled Hct 43.6 Cancelled MCV 89.0 Cancelled MCH 29.2 Cancelled MCHC 32.8 Cancelled RDW 12.9 Cancelled Plt Count 329 Cancelled MPV 9.8 Cancelled Immature Gran % (Auto) 0.2 Neut % (Auto) 82.4 H Lymph % (Auto) 11.8 L [place] % (Auto) 3.8 Eos % (Auto) 1.5 Baso % (Auto) 0.3 Lymph # (Auto) 1.2 [place] # (Auto) 0.4 Eos # (Auto) 0.2 Baso # (Auto) 0.0 Abs Immat Gran (auto) 0.02 Absolute Neuts (auto) 8.1 Absolute Nucleated RBC 0.000 Cancelled Nucleated RBC % (auto) 0.0 Cancelled Sodium 138 Potassium 3.7 Chloride 99 Carbon Dioxide 29 Anion Gap 14 BUN 10 Creatinine 0.83 Estim Creat Clear Calc 72.8 Estimated GFR > 60 Random Glucose 101 Calcium 11.1 H D Total Bilirubin 0.6 Direct Bilirubin 0.3 AST 26 ALT 24 Alkaline Phosphatase 82 Total Protein 8.7 H Albumin 5.0 Amylase 96 Lipase 51 Imaging Radiology Impressions: ITS Impressions Hip/Pelvis X-Ray 07/25/21 21:15 IMPRESSION: No acute fractures or malalignment. Abdomen/Pelvis CT 08/01/21 14:46 IMPRESSION: Study limited due to lack of fat oral or IV contrast and paucity of intraperitoneal fat. *Distended stomach, Borderline dilated fluid-filled small bowel loops throughout the abdomen suggesting possibly mild ileus versus partial distal small bowel obstruction. If patient remain symptomatic, may consider correlation with follow-up Gastrografin small bowel follow-through. *Ileostomy right lower quadrant. *Trace amount of free fluid in the dependent portion of the pelvis, no free air. Medications Medications Current Medications Acetaminophen (Acetaminophen 325 Mg Tablet) 650 mg PO Q6H PRN PRN Reason: Headache/Pain Mild Scale (1-3) Last Admin: 08/01/21 05:44 Dose: 650 mg Documented by: Al Hydroxide/Mg Hydroxide (Magnesium Hydrox/Alum Hydrox 30 Ml Oral.Susp) 30 ml PO Q6H PRN PRN Reason: Heartburn/Nausea Benztropine Mesylate (Benztropine Mesylate 1 Mg Tablet) 1 mg PO BID PRN PRN Reason: Extrapyramidal Effects Last Admin: 07/29/21 17:59 Dose: 1 mg Documented by: Bethanechol Chloride (Bethanechol Chloride 25 Mg Tablet) 25 mg PO TIDAC [facility] Last Admin: 08/01/21 17:26 Dose: 25 mg Documented by: Clonazepam (Clonazepam 1 Mg Tablet) 2 mg PO BEDTIME AMELIA Last Admin: 07/31/21 21:57 Dose: 2 mg Documented by: Clonidine HCl (Clonidine Hcl 0.1 Mg Tablet) 0.1 mg PO BID PRN; Protocol PRN Reason: nightmares, hyperarousal, anxiety Clonidine HCl (Clonidine Hcl 0.1 Mg Tablet) 0.1 mg PO BEDTIME AMELIA; Protocol Last Admin: 07/31/21 22:53 Dose: Not Given Documented by: Diphenhydramine HCl (Diphenhydramine Hcl 25 Mg Tablet) 25 mg PO BEDTIME [facility] Last Admin: 07/31/21 21:57 Dose: 25 mg Documented by: Duloxetine HCl (Duloxetine Hcl 30 Mg Capsule.Dr) 90 mg PO DAILY [facility] Last Admin: 08/01/21 08:37 Dose: 90 mg Documented by: Fluoxetine HCl (Fluoxetine Hcl 20 Mg Capsule) 20 mg PO DAILY [facility] Last Admin: 08/01/21 08:37 Dose: 20 mg Documented by: Gabapentin (Gabapentin 400 Mg Capsule) 800 mg PO BID [facility] Last Admin: 08/01/21 08:37 Dose: 800 mg Documented by: Gabapentin (Gabapentin 400 Mg Capsule) 400 mg PO DAILY PRN PRN Reason: breakthrough neuropathic pain Last Admin: 07/31/21 13:47 Dose: 400 mg Documented by: Hydromorphone HCl (Hydromorphone Hcl 1 Mg/Ml Syringe) 0.5 mg IVPUSH Q4H PRN; Protocol PRN Reason: Pain, Severe (Pain Scale 7-10) Last Admin: 08/01/21 20:50 Dose: 0.5 mg Documented by: Hydroxyzine HCl (Hydroxyzine Hcl 25 Mg Tablet) 25 mg PO BEDTIME PRN PRN Reason: Anxiety Last Admin: 07/30/21 05:46 Dose: 25 mg Documented by: Lactated Ringer's (Lr) 1,000 mls @ 100 mls/hr IVCONT .Q10H [facility] Last Admin: 08/01/21 20:49 Dose: 100 mls/hr Documented by: Loperamide HCl (Loperamide Hcl 2 Mg Capsule) 4 mg PO Q6H PRN PRN Reason: Diarrhea Last Admin: 08/01/21 13:20 Dose: 4 mg Documented by: Loperamide HCl (Loperamide Hcl 2 Mg Capsule) 4 mg PO Q4H PRN PRN Reason: may take 30 min prior to meals Last Admin: 08/01/21 08:52 Dose: 4 mg Documented by: Lurasidone HCl (Lurasidone Hcl 20 Mg Tablet) 20 mg PO BEDTIME [facility] Last Admin: 07/31/21 21:57 Dose: 20 mg Documented by: Magnesium Hydroxide (Milk Of Magnesia 30 Ml Oral.Susp) 30 ml PO DAILY PRN PRN Reason: Constipation Metoclopramide HCl (Metoclopramide Hcl 5 Mg Tablet) 5 mg PO QIDACHS PRN PRN Reason: Nausea Naltrexone HCl (Naltrexone Hcl 50 Mg Tablet) 25 mg PO DAILY [facility] Last Admin: 08/01/21 08:36 Dose: 25 mg Documented by: Ondansetron HCl (Ondansetron Hcl 4 Mg/2 Ml Vial) 4 mg IVPUSH Q8H PRN PRN Reason: Nausea and Vomiting Last Admin: 08/01/21 20:50 Dose: 4 mg Documented by: Pharmacy Consult (Consult Rx Perform Med Rec) 1 each MISCELLANE ONCE PRN PRN Reason: Consult order Trazodone HCl (Trazodone Hcl 100 Mg Tablet) 100 mg PO BEDTIME [facility] Last Admin: 07/31/21 21:57 Dose: 100 mg Documented by: Zolpidem Tartrate (Zolpidem Tartrate 5 Mg Tablet) 5 mg PO BEDTIME [facility] Last Admin: 07/31/21 21:57 Dose: 5 mg Documented by: Allergies Allergies Allergy/AdvReac Type Severity Reaction Status Date / Time buspirone [From BuSpar] Allergy Swelling Verified 07/23/21 19:02 chlorpromazine Allergy Anaphylaxis Verified 07/23/21 19:02 [From Thorazine] lamotrigine [From Lamictal] Allergy Rash Verified 07/23/21 19:02 Sulfa (Sulfonamide Allergy Rash Verified 07/23/21 19:02 Antibiotics) linaclotide [From Linzess] AdvReac Abdominal Verified 07/23/21 19:02 Pain quetiapine [From Seroquel] AdvReac bad side Verified 07/23/21 19:02 effects' topiramate AdvReac Fogginess Verified 07/23/21 19:02 ziprasidone [From Geodon] AdvReac psychosis Verified 07/23/21 19:02 Assessment & Plan Assessment & Plan (1) Cocaine use disorder: Status: Acute Code(s): F14.10 - Cocaine abuse, uncomplicated (2) Abdominal pain: Status: Acute Code(s): R10.9 - Unspecified abdominal pain (3) Anorexia nervosa: Status: Acute Code(s): F50.00 - Anorexia nervosa, unspecified (4) Opioid abuse: Status: Acute Code(s): F11.10 - Opioid abuse, uncomplicated (5) Mood disorder: Status: Acute Code(s): F39 - Unspecified mood [affective] disorder (6) PTSD (post-traumatic stress disorder): Status: Acute Code(s): F43.10 - Post-traumatic stress disorder, unspecified (7) Opioid use disorder, severe, dependence: Status: Acute Code(s): F11.20 - Opioid dependence, uncomplicated Assessment and Plan: 08/01/21: Continue plan per primary team. FU with medicine re abdominal pain Plan Zuleyma is a 35 y.o. Female who carries a dx of PTSD, likely BPD, anorexia nervosa, polysubstance abuse, and MDD, recurrent episode. She presented to [facility] on 07/23/21 reporting passive SI with plan to OD on heroin and disclosed using cocaine and heroin in an attempt to lose weight. Per ED notes, pt intentionally OD on heroin on 07/22/20 as a suicide attempt and was administered narcan at [facility]. Pt has multiple co-morbid medical concerns including ostomy bag, urinary retention, and chronic pain. Has long hx of IPLOC, PHP, and detox. Has OP psych services, psychiatrist is Dr. Anand. Plan: Will start clonidine 0.1 mg TID PRN for sx of nightmares, hyperarousal, and flashbacks; may also help with potential withdrawal (despite denying sx, as pt's BP is elevated). Pt reports positive benefit on PRN haldol 5 mg, will start haldol 5 mg BID PRN for acute agitation. She reports she trialed remeron in the past and didn?t feel it was helpful, however she is willing to take it again as she last trialed it in adolescence. Will lower trazodone to 100 mg and start remeron 7.5 mg QHS to target anxiety, depression, and sleep (may also work more effectively in concert with cymbalta). Will lower cymbalta to 90 mg per pt?s request, as she denies noticing benefit on higher dose and prefers less medication. 07/28/21: No medication changes other than scheduling clonidine 0.1 mg at bedtime for nightmares, hyperarousal, and sleep. Pt would like to ultimately get off trazodone and continue on remeron for sleep. Would consider increasing remeron for depression, anxiety, and insomnia. Pt continues to deny withdrawal from substances and is not interested in referral for recovery services. 07/31 stabilizing; no si/hi/avh; depression better; anxious but feels able to cope; feels she is safe; future oriented, hoping to return to work in couple of months; would like to dc on Tuesday to which fiction writer agrees. 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 Monitor for safety in the milieu. Discharge on stabilization. Patient seen. Chart reviewed. Discussed with team. Plan A 35 years old lady with PMH of drug abuse, anorexia nervosa, depression, post ileostomy who started to complain of abdominal pain today. Abdominal pain Blood work negative for any source of infection CT scan showing possible ileus Symptomatic mccoy the patient has no nausea or vomiting, having bowel movement which makes it less likely to have bowel obstruction To use Reglan around mealtime Tolerating diet will continue to monitor Pseudo hyper calcemia Corrected calcium of 10.3 Thank you for the consult, will continue to monitor the patient, please contact hospitalist the with any questions I spent minutes with the patient and/or on the patient floor today, greater than?50% of which was spent counseling/coordinating care. Reason for contiued inpatient stay Substantial Risk for: harm to self and med/psych decompensation
[2021-08-01] MEDS: cloNIDine HCL 0.1 MG TABLET PO (22:34)
[2021-08-01] MEDS: Zolpidem Tartrate 5 MG TABLET PO (22:34)
[2021-08-01] MEDS: diphenhydrAMINE HCL 25 MG TABLET PO (22:34)
[2021-08-01] MEDS: clonazePAM 1 MG TABLET 2 MG PO (22:35)
[2021-08-01] MEDS: traZODone HCL 100 MG TABLET PO (22:35)
[2021-08-02 00:01] VITALS: BP 101/59; PULSE 61; RESP 18; TEMP 36.3; O2SAT 97
--- NOTE | 2021-08-05 13:01 | P.DS_ITS ---
DS: Providers Provider Date of Service: 08/29/21 Date of admission: 07/27/21 13:33 Date of discharge: 08/29/21 Primary care physician: Caroline Thapa MD Attending physician on admission: Chirag Alcazar Attending physician on discharge: Ruddy Flores DS: Diagnosis Discharge Diagnosis (1) Cocaine use disorder: Status: Acute (2) Abdominal pain: Status: Acute (3) Anorexia nervosa: Status: Acute (4) Opioid abuse: Status: Acute (5) Mood disorder: Status: Acute (6) PTSD (post-traumatic stress disorder): Status: Acute (7) Opioid use disorder, severe, dependence: Status: Acute DS: Medications Discharge Medications Home Medications: Home Medications Medication Instructions Recorded Confirmed gabapentin 800 mg tablet 800 mg PO BID 10/31/20 08/04/21 trazodone 100 mg tablet 100 mg PO BEDTIME 10/31/20 08/04/21 diphenhydramine HCl 25 mg capsule 25 mg PO BEDTIME 07/23/21 08/04/21 (Wal-Sleep Z) loperamide 2 mg capsule 2 cap PO Q4H PRN 07/23/21 08/04/21 bethanechol chloride 25 mg tablet 1 tab PO TIDAC 07/26/21 08/04/21 acetaminophen 325 mg tablet 650 mg PO Q6H PRN 08/02/21 08/04/21 benztropine 1 mg tablet 1 mg PO BID PRN 08/02/21 08/04/21 clonidine HCl 0.1 mg tablet 0.1 mg PO BEDTIME 08/02/21 08/04/21 clonidine HCl 0.1 mg tablet 0.1 mg PO BID PRN 08/02/21 08/04/21 duloxetine 30 mg capsule,delayed 90 mg PO DAILY 08/02/21 08/04/21 release fluoxetine 20 mg capsule 20 mg PO DAILY 08/02/21 08/04/21 gabapentin 400 mg capsule 400 mg PO DAILY PRN 08/02/21 08/04/21 hydroxyzine HCl 25 mg tablet 25 mg PO BEDTIME PRN 08/02/21 08/04/21 lurasidone 20 mg tablet 20 mg PO BEDTIME 08/02/21 08/04/21 metoclopramide HCl 5 mg tablet 5 mg PO QIDACHS PRN 08/02/21 08/04/21 naltrexone 50 mg tablet 25 mg PO DAILY 08/02/21 08/04/21 zolpidem 5 mg tablet 5 mg PO BEDTIME 08/02/21 08/04/21 Previous Rx's Medication Instructions Recorded clonazepam 2 mg tablet (Klonopin) 2 mg PO BEDTIME #7 tab 10/31/20 Mental Status Exam Mental Status Exam Narrative: prior to abdominal pain: A&O. Pt is thin, in casual cloths, well groomed, good hygiene;. Good eye contact, attentive, irritable. No Tongue fasiculations or dytonic symptoms pr esent; Speech is loud volume and prosody and pressured.? No prolonged speech latency. Mood is angry affect irritble and labile.? Thought content on treatment; Denies SI/SIB/HI upon inquiry. Denies A/VH or delusional thought content. Thought process? perseverative; No known cognitive or memory impairment. Insight/ Judgment impaired but adequate. Data Data Completed and Pending Completed studies during hospitalization [Text1]: 08/01/21 08/01/21 08/01/21 13:21 13:21 13:21 WBC 9.8 Cancelled RBC 4.90 Cancelled Hgb 14.3 Cancelled Hct 43.6 Cancelled MCV 89.0 Cancelled MCH 29.2 Cancelled MCHC 32.8 Cancelled RDW 12.9 Cancelled Plt Count 329 Cancelled MPV 9.8 Cancelled Immature Gran % (Auto) 0.2 Neut % (Auto) 82.4 H Lymph % (Auto) 11.8 L [place] % (Auto) 3.8 Eos % (Auto) 1.5 Baso % (Auto) 0.3 Lymph # (Auto) 1.2 [place] # (Auto) 0.4 Eos # (Auto) 0.2 Baso # (Auto) 0.0 Abs Immat Gran (auto) 0.02 Absolute Neuts (auto) 8.1 Absolute Nucleated RBC 0.000 Cancelled Nucleated RBC % (auto) 0.0 Cancelled Sodium 138 Potassium 3.7 Chloride 99 Carbon Dioxide 29 Anion Gap 14 BUN 10 Creatinine 0.83 Estim Creat Clear Calc 72.8 Estimated GFR > 60 Random Glucose 101 Calcium 11.1 H D Total Bilirubin 0.6 Direct Bilirubin 0.3 AST 26 ALT 24 Alkaline Phosphatase 82 Total Protein 8.7 H Albumin 5.0 Amylase 96 Lipase 51 07/23/21 19:56 Urine Catheterized - Tineo Catheter Urine Culture - Final No growth. Imaging Diagnostic Imaging Impressions Hip/Pelvis X-Ray 07/25/21 21:15 IMPRESSION: No acute fractures or malalignment. Abdomen/Pelvis CT 08/01/21 14:46 IMPRESSION: Study limited due to lack of fat oral or IV contrast and paucity of intraperitoneal fat. *Distended stomach, Borderline dilated fluid-filled small bowel loops throughout the abdomen suggesting possibly mild ileus versus partial distal small bowel obstruction. If patient remain symptomatic, may consider correlation with follow-up Gastrografin small bowel follow-through. *Ileostomy right lower quadrant. *Trace amount of free fluid in the dependent portion of the pelvis, no free air. DS: Summary Hospital Course Hospital Course: ON 08/01 PATIENT DEVELOPED ABDOMINAL PAIN AND WAS TRANSFERRED TO MEDICAL FLOOR. BELOW IS HOSPITAL SUMMARY UP UNTIL THIS POINT Zuleyma is a 35 y.o. Female who carries a dx of PTSD, likely BPD, anorexia nervosa, polysubstance abuse, and MDD, recurrent episode. She presented to [facility] [place] [facility] ED on 07/23/21 reporting passive SI with plan to OD on heroin and disclosed using cocaine and heroin in an attempt to lose weight. Per ED notes, pt intentionally OD on heroin on 07/22/20 as a suicide attempt and was administered narcan at [facility]. Pt has multiple co-morbid medical concerns including ostomy bag, urinary retention, and chronic pain. Has long hx of IPLOC, PHP, and detox. Has OP psych services, psychiatrist is Dr. Anand. Plan: Will start clonidine 0.1 mg TID PRN for sx of nightmares, hyperarousal, and flashbacks; may also help with potential withdrawal (despite denying sx, as pt's BP is elevated). Pt reports positive benefit on PRN haldol 5 mg, will start haldol 5 mg BID PRN for acute agitation. She reports she trialed remeron in the past and didn?t feel it was helpful, however she is willing to take it again as she last trialed it in adolescence. Will lower trazodone to 100 mg and start remeron 7.5 mg QHS to target anxiety, depression, and sleep (may also work more effectively in concert with cymbalta). Will lower cymbalta to 90 mg per pt?s request, as she denies noticing benefit on higher dose and prefers less medication. 07/28/21: No medication changes other than scheduling clonidine 0.1 mg at bedtime for nightmares, hyperarousal, and sleep. Pt would like to ultimately get off trazodone and continue on remeron for sleep. Would consider increasing remeron for depression, anxiety, and insomnia. Pt continues to deny withdrawal from substances and is not interested in referral for recovery services. 07/31 stabilizing; no si/hi/avh; depression better; anxious but feels able to cope; feels she is safe; future oriented, hoping to return to work in couple of months; would like to dc on Tuesday to which show card writer agrees. PLAN: ADD Naltrexone 25mg for substance abuse issues will get lfts -continue Lurasidone 20mg qhs -continue Prozac 20 mg and Cymbalta 90 mg since she was stable on this for years; she feels it is worth the risk of potential side effects including serotonin syndrome which she has never had -DC mirtazapine; Not helpful for insomnia; -continue ambien 5mg qhs; patient reports she has been on Ambien 10 mg for 7 years on which she is slept well; she would like to have Ambien 5 mg scheduled at bedtime in addition to clonazepam 2 mg -continue clonazepam 2 mg qhs; patient reports being on clonazepam 2 mg for 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; show card writer is not sure there is clinical need for treating this however she's been on this for years -continue trazodone 100 mg; this amount helpful; higher doses cause nightmares DC Haldol; patient had dystonic reaction, most likely from Haldol she took for the past 2 days; she was given Cogentin 1 mg while meeting with show card writer which seemed to resolve this issue Time spent discussing smoking cessation with patient: 3 to 10 minutes Status at Discharge Functional status at discharge: bed bound (due to abdominal pain) Overall status at discharge: patient is not back to baseline (was back to psychiatric baseline, but not physical baseline) Time Spent with Patient Time attestation: Total time spent providing and/or coordinating discharge services: Time spent: Less than 30 minutes Discharge Plan Discharge Anticipated Discharge Date/Time: 08/01/21 23:26 Patient Disposition: Xfer Other Discharge Diagnosis: Abdominal pain/vomiting Referrals: Psychiatrist: Dr. Lauro James ([facility]) [Other] - 08/12/21 9:45 am (*Telehealth*) Caroline Thapa MD [Primary Care Provider] - 1 Week Discharge Medications: Continued clonazepam [Klonopin] 2 mg tablet 2 mg PO BEDTIME Qty: 7 1RF gabapentin 800 mg Tablet 800 mg PO BID 0RF trazodone 100 mg Tablet 100 mg PO BEDTIME 0RF loperamide 2 mg capsule 2 cap PO Q4H PRN (Reason: Diarrhea) 0RF diphenhydramine HCl [Wal-Sleep Z] 25 mg Capsule 25 mg PO BEDTIME 0RF bethanechol chloride 25 mg tablet 1 tab PO TIDAC 0RF lurasidone 20 mg Tablet 20 mg PO BEDTIME 0RF Rx Instructions: must administer with food (at least 350 calories) metoclopramide HCl 5 mg Tablet 5 mg PO QIDACHS PRN (Reason: Nausea) 0RF naltrexone 50 mg Tablet 25 mg PO DAILY 0RF zolpidem 5 mg Tablet 5 mg PO BEDTIME 0RF acetaminophen 325 mg Tablet 650 mg PO Q6H PRN (Reason: HEADACHE/MILD PAIN) 0RF benztropine 1 mg Tablet 1 mg PO BID PRN (Reason: Extrapyramidal Effects/Symptoms) 0RF clonidine HCl 0.1 mg Tablet 0.1 mg PO BID PRN (Reason: NIGHTMARES,HYPERAROUSAL,ANXIETY) 0RF clonidine HCl 0.1 mg Tablet 0.1 mg PO BEDTIME 0RF duloxetine 30 mg Capsule,Delayed Release(Dr/Ec) 90 mg PO DAILY 0RF fluoxetine 20 mg Capsule 20 mg PO DAILY 0RF gabapentin 400 mg Capsule 400 mg PO DAILY PRN (Reason: BREAKTHROUGH NEUROPATHIC PAIN) 0RF hydroxyzine HCl 25 mg Tablet 25 mg PO BEDTIME PRN (Reason: Anxiety) 0RF Discharge Orders: Discharge Order (Routine); Ordered 08/01/21 Ordered By: Ruddy Flores Diet: other Activity on Discharge: As tolerated Stand Alone Forms: Patient Portal Discharge page, Community Support Care Plan Goals: Transferred to medical floor for abdominal pain Health Concerns: Transferred to medical floor for abdominal pain Plan of Treatment: Transferred to medical floor for abdominal pain Assessment: Transferred to medical floor for abdominal pain Discharge Date/Time: 08/01/21 20:00
== END 2021-08-01 20:00 | disposition short-term general hospital (02) | DRG 751 ==
LOC: HO.ED 20:02 → HO.PM5 07-27 14:03
PROVIDERS: Clinical Nurse Specialist Psychiatric/Mental Health, Adult; Physician Assistant; Psychiatry & Neurology Psychiatry; Admitting Provider Psychiatry & Neurology Psychiatry; Emergency Provider Emergency Medicine; PCP Family Medicine; Visit Provider Psychiatry & Neurology Psychiatry
DX: F33.1 Major depressive disorder, recurrent, moderate (principal); F50.00 Anorexia nervosa, unspecified; R45.851 Suicidal ideations; F11.20 Opioid dependence, uncomplicated; F14.10 Cocaine abuse, uncomplicated; F43.10 Post-traumatic stress disorder, unspecified; R33.9 Retention of urine, unspecified; F17.210 Nicotine dependence, cigarettes, uncomplicated; Z20.822 Contact with and (suspected) exposure to COVID-19; Z71.6 Tobacco abuse counseling; Z68.1 Body mass index [BMI] 19.9 or less, adult; Z88.2 Allergy status to sulfonamides; Z79.899 Other long term (current) drug therapy
CPT/HCPCS: 36415; 73502; 74176; 80048; 80061; 80076; 80307; 81001; 81003; 81025; 82077; 82150; 82607; 82746; 83036; 83690; 84443; 85025; 87086; 87635; 93005; 99285; J1170; J1885; J2405; Q0163

== ENCOUNTER 2021-08-01 20:40 | Inpatient (IN) | payer MEDICAID, SELFPAY ==
[2021-08-02] VITALS (8 sets, daily range): BP systolic 96–173; BP diastolic 61–90; PULSE 65–92; RESP 17–18; TEMP 36.4–37; O2SAT 96–99; BMI 19.1
[2021-08-02] MEDS: Morphine Sulfate 4 MG/ML CARTRIDGE IVPUSH (07:18)
--- NOTE | 2021-08-02 08:07 | PHA.MEDREC ---
MED REC COMPLETE, PT TRANSFERRED FROM PSYCH FLOOR TO MEDICAL FLOOR, KEPT CURRENT ORDERS AND DOSES THE CURRENT MED REC LIST Pharmacy Consult ? Medication Reconciliation Pharmacy has completed the medication reconciliation.
[2021-08-02 08:48] LABS: MANUAL DIFF FLAG NO
[2021-08-02 08:50] LABS: Basophils Percent Auto 0.4 % (0-2); Eosinophils Absolute Auto 0.3 X10*3/uL (0.0-0.4); Eosinophils Percent Auto 6.1 % (0-4); Hemoglobin 14.7 g/dl (12.0-16.0); Imm Gran Abs Auto 0.01 X10*3/uL (0.00-0.03); Imm Gran Pct Auto 0.2 % (0.0-0.4); Lymphocytes Absolute Auto 1.3 X10*3/uL (1.2-4.9); Mean Corpuscular HGB Conc 32.7 g/dl (31.0-35.0); Mean Corpuscular Hemoglobin 28.9 pg (27.0-33.0); Mean Corpuscular Volume 88.4 fL (80.0-98.0); Mean Platelet Volume 9.7 fL (9.4-12.3); Monocytes Absolute Auto 0.3 X10*3/uL (0.1-1.2); Monocytes Percent Auto 5.7 % (2-11); Neutrophils Percent Auto 60.6 % (45-73); Platelet Count 313 X10*3/uL (160-400); Red Blood Count 5.09 X10*6/uL (4.20-5.50); Red Cell Distribution Width 12.9 % (11.0-16.0); White Blood Count 4.9 X10*3/uL (4.8-10.8)
[2021-08-02 09:10] LABS: Anion Gap 14 (12-20); Blood Urea Nitrogen 14 mg/dL (9-16); Calcium 10.8 mg/dL (8.4-10.2); Carbon Dioxide 23 mmol/L (22-29); Chloride 106 mmol/L (96-108); Creatinine Clr Calc Pharmacy 67.2; Estimated Glomerular Filt Rate > 60; Glucose Random 108 mg/dL (60-115); Potassium 5.1 mmol/L (3.3-5.1); Sodium 138 mmol/L (135-145)
[2021-08-02] MEDS: Gabapentin 400 MG CAPSULE 800 MG PO ×2 (09:24→22:03)
[2021-08-02] MEDS: DULoxetine HCl 30 MG CAPSULE.DR 90 MG PO (09:24)
[2021-08-02] MEDS: 0.9 % Sodium Chloride Flush 3 ML SYRINGE IVFLUSH ×2 (09:25→22:06)
[2021-08-02] MEDS: Lactated Ringers 1,000 ML 100 ML IVCONT ×2 (09:25→22:00)
[2021-08-02] MEDS: FLUoxetine HCl 20 MG CAPSULE PO (09:25)
[2021-08-02] MEDS: Bethanechol Chloride 25 MG TABLET PO (10:53)
[2021-08-02] MEDS: ondansetron HCL 4 MG/2 ML VIAL IVPUSH (11:40)
[2021-08-02] MEDS: Morphine Sulfate 2 MG/ML CARTRIDGE IVPUSH (11:40)
--- NOTE | 2021-08-02 12:22 | P.PNIM_ITS ---
Subjective Subjective Date of Service: 08/02/21 Interval History: the patient was seen and evaluated this morning Laying in bed, feels better with decreased nausea and vomiting Feels like eating today No reported other overnight events. Systemic review: No fever, chills or weakness No chest pain, palpitation No shortness of breath or coughing Mild pain and nausea No urinary symptoms No any rash or wounds Physical Exam Verdana 4l Vital Signs: Verdana 4d Verdana 4d Vital Signs: Verdana 4d Verdana 4Bd Last Vital Signs Verdana 4d Seed Potato Arranger New 4d Seed Potato Arranger New 4d Temp 97.5 F 08/02/21 11:57 Seed Potato Arranger New 4d Pulse 88 08/02/21 11:57 Seed Potato Arranger New 4d Resp 18 08/02/21 11:57 BP 111/73 08/02/21 11:57 Pulse Ox 99 08/02/21 11:57 BMI result Body Mass Index 19.1 Const: Other: Constitutional : Alert, oriented, not in distress Neck : Normal inspection, Supple Cardiovascular : RRR, S1 S2, no lower extremity edema Respiratory : Good bilateral air entry, no crackles, wheezes or rhonchi Gastrointestinal: soft, lax, Normal bowel sounds, Non tender, ostomy in place with no surrounding erythema and small amount of liquid in the bag Skin : Warm, Dry Neurological : Alert & oriented x3, No focal deficit Objective Data Active Medications Acetaminophen (Acetaminophen 325 Mg Tablet) 650 mg PO Q6H PRN PRN Reason: Pain, Mild (Pain Scale 1-3) Benztropine Mesylate (Benztropine Mesylate 1 Mg Tablet) 1 mg PO BID PRN PRN Reason: Extrapyramidal Effects/Symptoms Bethanechol Chloride (Bethanechol Chloride 25 Mg Tablet) 25 mg PO TIDAC AMELIA Last Admin: 08/02/21 10:53 Dose: 25 mg Documented by: DE.COTEMA Clonazepam (Clonazepam 1 Mg Tablet) 2 mg PO BEDTIME AEMLIA Clonidine HCl (Clonidine Hcl 0.1 Mg Tablet) 0.1 mg PO BEDTIME AMELIA; Protocol Clonidine HCl (Clonidine Hcl 0.1 Mg Tablet) 0.1 mg PO BID PRN; Protocol PRN Reason: NIGHTMARES,HYPERAROUSAL,ANXIETY Diphenhydramine HCl (Diphenhydramine Hcl 25 Mg Tablet) 25 mg PO BEDTIME AMELIA Duloxetine HCl (Duloxetine Hcl 30 Mg Capsule.) 90 mg PO DAILY [facility] Last Admin: 08/02/21 09:24 Dose: 90 mg Documented by: COTEMA Enoxaparin Sodium (Enoxaparin Sodium 40 Mg/0.4 Ml Syringe) 40 mg SUBCUT Q24H SC H Last Admin: 08/02/21 05:36 Dose: Not Given Documented by: WEN Non-Admin Reason: Patient Asleep Fluoxetine HCl (Fluoxetine Hcl 20 Mg Capsule) 20 mg PO DAILY [facility] Last Admin: 08/02/21 09:25 Dose: 20 mg Documented by: COTEMA Gabapentin (Gabapentin 400 Mg Capsule) 400 mg PO DAILY PRN PRN Reason: BREAKTHROUGH NEUROPATHIC PAIN Gabapentin (Gabapentin 400 Mg Capsule) 800 mg PO BID [facility] Last Admin: 08/02/21 09:24 Dose: 800 mg Documented by: COTEMA Hydroxyzine HCl (Hydroxyzine Hcl 25 Mg Tablet) 25 mg PO BEDTIME PRN PRN Reason: Anxiety Lactated Ringer's (Lr) 1,000 mls @ 100 mls/hr IVCONT .Q10H [facility] Last Admin: 08/02/21 09:25 Dose: 100 mls/hr Documented by: COTEMA Loperamide HCl (Loperamide Hcl 2 Mg Capsule) 4 mg PO Q4H PRN PRN Reason: Diarrhea Lurasidone HCl (Lurasidone Hcl 20 Mg Tablet) 20 mg PO BEDTIME AMELIA Morphine Sulfate (Morphine Sulfate 2 Mg/Ml Cartridge) 2 mg IVPUSH Q4H PRN; Protocol PRN Reason: Pain, Severe (Pain Scale 7-10) Last Admin: 08/02/21 11:40 Dose: 2 mg Documented by: COTEMA Ondansetron HCl (Ondansetron Hcl 4 Mg/2 Ml Vial) 4 mg IVPUSH Q8H PRN PRN Reason: Nausea and Vomiting Last Admin: 08/02/21 11:40 Dose: 4 mg Documented by: COTEMA Sodium Chloride (0.9 % Sodium Chloride Flush 3 Ml Syringe) 3 ml IVFLUSH QSHIFT [facility] Last Admin: 08/02/21 09:25 Dose: 3 ml Documented by: COTEMA Trazodone HCl (Trazodone Hcl 100 Mg Tablet) 100 mg PO BEDTIME [facility] Zolpidem Tartrate (Zolpidem Tartrate 5 Mg Tablet) 5 mg PO BEDTIME AMELIA Labs CBC & Chem 7: 08/02/21 08:41 08/02/21 08:41 Labs: Laboratory Results - last 24 hr 08/02/21 08/02/21 08:41 08:41 MCV 88.4 MCH 28.9 MCHC 32.7 RDW 12.9 Plt Count 313 MPV 9.7 Immature Gran % (Auto) 0.2 Neut % (Auto) 60.6 Lymph % (Auto) 27.0 [place] % (Auto) 5.7 Eos % (Auto) 6.1 H Baso % (Auto) 0.4 Lymph # (Auto) 1.3 [place] # (Auto) 0.3 Eos # (Auto) 0.3 Baso # (Auto) 0.0 Abs Immat Gran (auto) 0.01 Absolute Neuts (auto) 3.0 Absolute Nucleated RBC 0.000 Nucleated RBC % (auto) 0.0 Anion Gap 14 Estim Creat Clear Calc 67.2 Estimated GFR > 60 Random Glucose 108 Calcium 10.8 H Assessment and Plan (1) Ileus: Status: Acute (2) Abdominal pain: Status: Acute Plan A 35 years old lady with PMH of drug abuse, anorexia nervosa, depression, post i leostomy who started to complain of abdominal pain today. Ileus / SBO CT scan showed evidence of possible ileus versus SBO Continue gentle hydration Start clear liquids Morphine for pain, Zofran for nausea Pending surgery evaluation Pseudo hyper calcemia Corrected calcium of 10.3 DVT PPX Lovenox Quality Stroke Does the patient have a stroke diagnosis?: No VTE Prior VTE?: No VTE Risk Level:: Medical - moderate - high VTE Device Contraindication: Treatment Not Indicated VTE Drug Contraindication: N/A - Med Ordered
[2021-08-02] MEDS: HYDROmorphone HCl 1 MG/ML SYRINGE 0.5 MG IVPUSH ×3 (13:01→21:01)
--- NOTE | 2021-08-02 16:04 | MHC.CM.PN ---
CM MET WITH PT WHO REPORTS SHE LIVES AT HOME WITH HER S/O, ANNITA. SHE REPORTS SHE IS INDEPENDENT WT CARE AND HAS NO HOME SERVICES PT REPORTS SHE HAS STRAIGHT CATH AND ILEOSTOMY SUPPLIES FOR DME PT REPORTS HER [place]CP IS [place] DE[place] [facility] [place] PT COMPLETED A HCP TODAY NAMING HER S/O HER AGENT CURRENT DC PLAN IS HOME WITH NO SERVICES S/O TO TRANSPORT
--- NOTE | 2021-08-02 17:09 | P.CONGS_ITS ---
History of Present Illness Consult details Consult date: 08/02/21 Reason for consult: abdominal pain Requesting physician: Irene Bravo Narrative: The pt is a 35 year old female with psych hx of anorexia nervosa and recent suicide attempt and caloric restriction. She has had issues with colonic inertia and about 3 yrs ago underwent a subtotal colectomy by Dr Hook at [facility] [place]. She over the last two days had some increased watery ileostomy output and she was restricting her diet a shakira time. She then was feeling better after admission and treatment to psych floor and decided to eat a sandwich as she was feeling hungry - this was a lot for her and then she began feeling nauseated and having abdo pain. she does get output from her ileostomy but not as much gas - normal for her. she says she has discussed with colorectal and they do not think she is a candidate for taking down her ileosotomy - she had a CT scan yesterday which showed some small bowel distension - ? ileus picutre. 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 Primary fibromyalgia syndrome Self-catheterizes urinary bladder Social History Social History Household Members: Spouse Housing: House Do you presently have visiting nurse or other home services: No Patient Tobacco Use Status: Never used Tobacco Tobacco use type: Cigarette Cigarettes Per Day: 1 Years Smoked: Started age 17 e-Cigarette/Vaping Use: Never Used Second Hand Smoke Exposure: No Substance Use Type: Crack/Cocaine and Heroin Currently Displaying Signs/Symptoms of Drug Intoxication Withdrawal: No Advance Directives: No Advance Directives Information Provided: Yes Do you have thoughts of harming others: None Do you have a plan to hurt others: No Plan service: No Current occupational status: unemployed Sexual orientation: Straight/Heterosexual Meds Allergies Allergy/AdvReac Type Severity Reaction Status Date / Time buspirone [From Allergy Swelling Verified 07/23/21 19:02 BuSpar] chlorpromazine Allergy Anaphylaxis Verified 07/23/21 19:02 [From Thorazine] lamotrigine [From Allergy Rash Verified 07/23/21 19:02 Lamictal] Sulfa (Sulfonamide Allergy Rash Verified 07/23/21 19:02 Antibiotics) linaclotide [From AdvReac Abdominal Verified 07/23/21 19:02 Linzess] Pain quetiapine [From AdvReac bad side Verified 07/23/21 19:02 Seroquel] effects' topiramate AdvReac Fogginess Verified 07/23/21 19:02 ziprasidone [From AdvReac psychosis Verified 07/23/21 19:02 Geodon] Active Medications: Current Medications Acetaminophen (Acetaminophen 325 Mg Tablet) 650 mg PO Q6H PRN PRN Reason: Pain, Mild (Pain Scale 1-3) Benztropine Mesylate (Benztropine Mesylate 1 Mg Tablet) 1 mg PO BID PRN PRN Reason: Extrapyramidal Effects/Symptoms Bethanechol Chloride (Bethanechol Chloride 25 Mg Tablet) 25 mg PO TIDAC [facility] Last Admin: 08/02/21 16:30 Dose: Not Given Documented by: Clonazepam (Clonazepam 1 Mg Tablet) 2 mg PO BEDTIME AMELIA Clonidine HCl (Clonidine Hcl 0.1 Mg Tablet) 0.1 mg PO BEDTIME AMELIA; Protocol Clonidine HCl (Clonidine Hcl 0.1 Mg Tablet) 0.1 mg PO BID PRN; Protocol PRN Reason: NIGHTMARES,HYPERAROUSAL,ANXIETY Diphenhydramine HCl (Diphenhydramine Hcl 25 Mg Tablet) 25 mg PO BEDTIME AMELIA Duloxetine HCl (Duloxetine Hcl 30 Mg Capsule.Dr) 90 mg PO DAILY [facility] Last Admin: 08/02/21 09:24 Dose: 90 mg Documented by: Enoxaparin Sodium (Enoxaparin Sodium 40 Mg/0.4 Ml Syringe) 40 mg SUBCUT Q24H [facility] Last Admin: 08/02/21 05:36 Dose: Not Given Documented by: Fluoxetine HCl (Fluoxetine Hcl 20 Mg Capsule) 20 mg PO DAILY [facility] Last Admin: 08/02/21 09:25 Dose: 20 mg Documented by: Gabapentin (Gabapentin 400 Mg Capsule) 400 mg PO DAILY PRN PRN Reason: BREAKTHROUGH NEUROPATHIC PAIN Gabapentin (Gabapentin 400 Mg Capsule) 800 mg PO BID [facility] Last Admin: 08/02/21 09:24 Dose: 800 mg Documented by: Hydromorphone HCl (Hydromorphone Hcl 1 Mg/Ml Syringe) 0.5 mg IVPUSH Q4H PRN; Protocol PRN Reason: Pain, Severe (Pain Scale 7-10) Last Admin: 08/02/21 17:06 Dose: 0.5 mg Documented by: Hydroxyzine HCl (Hydroxyzine Hcl 25 Mg Tablet) 25 mg PO BEDTIME PRN PRN Reason: Anxiety Lactated Ringer's (Lr) 1,000 mls @ 100 mls/hr IVCONT .Q10H [facility] Last Admin: 08/02/21 17:01 Dose: Not Given Documented by: Loperamide HCl (Loperamide Hcl 2 Mg Capsule) 4 mg PO Q4H PRN PRN Reason: Diarrhea Lurasidone HCl (Lurasidone Hcl 20 Mg Tablet) 20 mg PO BEDTIME [facility] Ondansetron HCl (Ondansetron Hcl 4 Mg/2 Ml Vial) 4 mg IVPUSH Q8H PRN PRN Reason: Nausea and Vomiting Last Admin: 08/02/21 11:40 Dose: 4 mg Documented by: Sodium Chloride (0.9 % Sodium Chloride Flush 3 Ml Syringe) 3 ml IVFLUSH QSHIFT [facility] Last Admin: 08/02/21 14:40 Dose: Not Given Documented by: Trazodone HCl (Trazodone Hcl 100 Mg Tablet) 100 mg PO BEDTIME [facility] Zolpidem Tartrate (Zolpidem Tartrate 5 Mg Tablet) 5 mg PO BEDTIME [facility] Home Medications Medication Instructions Recorded Confirmed Last Taken Type gabapentin 800 mg 800 mg PO BID 10/31/20 08/02/21 07/22/21 History tablet trazodone 100 mg 100 mg PO 10/31/20 08/02/21 07/22/21 History tablet BEDTIME diphenhydramine 25 mg PO BEDTIME 07/23/21 08/02/21 07/22/21 History HCl 25 mg capsule ([employer] Z) loperamide 2 mg 2 cap PO Q4H PRN 07/23/21 08/02/21 07/22/21 History capsule bethanechol 1 tab PO TIDAC 07/26/21 08/02/21 Unknown History chloride 25 mg tablet acetaminophen 325 650 mg PO Q6H 08/02/21 08/02/21 Unknown History mg tablet PRN benztropine 1 mg 1 mg PO BID PRN 08/02/21 08/02/21 Unknown History tablet clonidine HCl 0.1 0.1 mg PO 08/02/21 08/02/21 Unknown History mg tablet BEDTIME clonidine HCl 0.1 0.1 mg PO BID 08/02/21 08/02/21 Unknown History mg tablet PRN duloxetine 30 mg 90 mg PO DAILY 08/02/21 08/02/21 Unknown History capsule,delayed release fluoxetine 20 mg 20 mg PO DAILY 08/02/21 08/02/21 Unknown History capsule gabapentin 400 mg 400 mg PO DAILY 08/02/21 08/02/21 Unknown History capsule PRN hydroxyzine HCl 25 mg PO BEDTIME 08/02/21 08/02/21 Unknown History 25 mg tablet PRN lurasidone 20 mg 20 mg PO BEDTIME 08/02/21 08/02/21 Unknown History tablet metoclopramide 5 mg PO QIDACHS 08/02/21 08/02/21 Unknown History HCl 5 mg tablet PRN naltrexone 50 mg 25 mg PO DAILY 08/02/21 08/02/21 Unknown History tablet zolpidem 5 mg 5 mg PO BEDTIME 08/02/21 08/02/21 Unknown History tablet Physical Exam Verdana 4l Vital Signs: Verdana 4d Verdana 4d Vital Signs: Verdana 4d Verdana 4Bd Last Vital Signs Verdana 4d District [employer] New 4d District Traffic Chief New 4d Temp 97.5 F 08/02/21 11:57 District Traffic Chief New 4d Pulse 88 08/02/21 11:57 District Traffic Chief New 4d Resp 17 08/02/21 17:06 BP 111/73 08/02/21 11:57 Pulse Ox 99 08/02/21 11:57 BMI result Body Mass Index 19.1 Const: General: cooperative, alert, awake and in distress; No acute distress or anxious Nutritional Appearance: thin and underweight Orientation/consciousness: p atient oriented x3 Limitations: no limitations Neck: Neck: Yes full ROM GI: Other: abdo - soft thin nondistended active bowel sounds mild tenderness at epigastrium no hernias. ostomy bag empty but pt just emptied Skin: General skin exam: no rashes or lesions noted and no jaundice Neuro: General: patient oriented x3 Psych: Appearance: grossly normal Mental Status: mental status grossly normal Speech and movement: Normal speech and movement present Affect: normal affect Attitude: cooperative Thought process: Normal thought process present Thought content: Normal thought content present and suicidality Insight: Good insight present (Psych) Judgement: Fair judgement present (Psych) Results Labs Result diagrams: 08/02/21 08:41 08/02/21 08:41 Labs: Abnormal lab results 08/02/21 08/02/21 Range/Units 08:41 08:41 Eos % (Auto) 6.1 H (0-4) % Calcium 10.8 H (8.4-10.2) mg/dL Short CBC 08/02/21 Range/Units 08:41 WBC 4.9 (4.8-10.8) X10*3/uL Hgb 14.7 (12.0-16.0) g/dl Hct 45.0 (37.0-47.0) % Plt Count 313 (160-400) X10*3/uL BMP 08/02/21 08:41 Sodium 138 Potassium 5.1 D Chloride 106 Carbon Dioxide 23 BUN 14 Creatinine 0.93 Calcium 10.8 H All other labs normal. Imaging Abdominal x-ray: report reviewed Abdomen CT scan report/results: report reviewed Assessment and Plan (1) Ileus: Status: Acute (2) Abdominal pain: Status: Acute Plan 35 year old female with abdo pain, anorexia, ileosotmy working - pt with lots of psych issues with po intake, restricting and then slight overeating - recently gained weight and was nervous, restricted diet to 400 miguel a daily then got hungry and overate and then felt sick. tried to kill herself with heroin od due to her increase weight - on exam and on CT scan maybe ileus but now osotmy functioning abdo exam ok. ok to advance diet. i think there is no physical issue but mainly pts psych issues with her GI intake of restricting and then mini binging Procedures Date of Service Date of Service: 08/02/21
[2021-08-02] MEDS: diphenhydrAMINE HCL 25 MG TABLET PO (22:02)
[2021-08-02] MEDS: clonazePAM 1 MG TABLET 2 MG PO (22:02)
[2021-08-02] MEDS: cloNIDine HCL 0.1 MG TABLET PO (22:02)
[2021-08-02] MEDS: Lurasidone HCl 20 MG TABLET PO (22:03)
[2021-08-02] MEDS: traZODone HCL 100 MG TABLET PO (22:03)
[2021-08-02] MEDS: Zolpidem Tartrate 5 MG TABLET PO (22:03)
[2021-08-03] VITALS (7 sets, daily range): BP systolic 92–116; BP diastolic 52–74; PULSE 57–95; RESP 16–20; TEMP 36.1–36.9; O2SAT 95–99
[2021-08-03 05:12] LABS: Anion Gap 9 (12-20); Blood Urea Nitrogen 11 mg/dL (9-16); Calcium 9.5 mg/dL (8.4-10.2); Carbon Dioxide 26 mmol/L (22-29); Chloride 109 mmol/L (96-108); Creatinine Clr Calc Pharmacy 85.5; Estimated Glomerular Filt Rate > 60; Glucose Random 90 mg/dL (60-115); Potassium 4.7 mmol/L (3.3-5.1); Sodium 139 mmol/L (135-145)
[2021-08-03] MEDS: FLUoxetine HCl 20 MG CAPSULE PO (08:13)
[2021-08-03] MEDS: Gabapentin 400 MG CAPSULE 800 MG PO ×2 (08:13→22:29)
[2021-08-03] MEDS: DULoxetine HCl 30 MG CAPSULE.DR 90 MG PO (08:13)
[2021-08-03] MEDS: Bethanechol Chloride 25 MG TABLET PO (08:13)
[2021-08-03] MEDS: Lactated Ringers 1,000 ML 100 ML IVCONT (08:13)
[2021-08-03] MEDS: 0.9 % Sodium Chloride Flush 3 ML SYRINGE IVFLUSH ×2 (08:14→18:16)
[2021-08-03] MEDS: HYDROmorphone HCl 1 MG/ML SYRINGE 0.5 MG IVPUSH ×4 (08:22→22:29)
[2021-08-03] MEDS: ondansetron HCL 4 MG/2 ML VIAL IVPUSH (08:28)
[2021-08-03] MEDS: Acetaminophen 325 MG TABLET 650 MG PO (09:20)
--- NOTE | 2021-08-03 10:24 | MHC.CM.PN ---
Addendum entered by Michelle Carter RN 08/03/21 11:18: PER HOSPITALIST PT WILL BE RE-EVALUATED BY CARE TEAM FOR RETURN TO . Original Note: CM MET W/PT IN [facility], PT HAVING SIGNIFICANT PAIN WHILE MTG W/CM ANOTHER HOSPITAL STAFF WENT TO GET PT'S RN WHILE CM MET W/PT, PT REPORTS SHE WAS SUPPOSED TO BE DISCHARGING FROM TODAY TO [facility] HOWEVER PT REPORTS SHE HAD A SET BACK FROM HER MEDICAL ISSUE AND NOW DOES NOT FEEL READY AND FEELS LIKE SHE SHOULD RETURN TO INSTEAD OF DISCHARGING HOME, REPORTING SHE WAS INITIALLY SUICIDAL AND OD'D ON HEROIN PT REPORTS SHE DOES NOT TYPICALLY USE HEROIN. IV DILAUDID REINSTATED D/T SEVERE PAIN AFTER EATING. CM WILL CONT TO FOLLOW NEEDS AND RECOMMEND A CARE TEAM REFERRAL IF NOT ALREADY DONE.
--- NOTE | 2021-08-03 11:03 | PC.NURSE ---
Patient c/o 10/10 pain to left of colostomy above umbilicus shortly after eating breakfast. Crying that anything she eats causes her pain and she feels hopeless. Denied SI at present time. Offered hot pack but refused. Had IV dilaudid 1 hour prior as well as zofran for nausea. Dr. Bravo notified. Had changed IV dilaudid to PO which he had already told the patient. Consulted primary care nurse practitioner and addiction medicine. Medicated with tylenol and patient wanted to rest. Encouraged patient that primary care nurse practitioner and addiction medicine would come and talk to her.
--- NOTE | 2021-08-03 11:13 | P.PNIM_ITS ---
Subjective Subjective Date of Service: 08/03/21 Interval History: the patient was seen and evaluated this morning Laying in bed, feels better with decreased nausea and vomiting Tolerating diet, eating a small amount Reporting pain after food No reported other overnight events. Systemic review: No fever, chills or weakness No chest pain, palpitation No shortness of breath or coughing Mild pain and nausea No urinary symptoms No any rash or wounds Physical Exam Verdana 4l Vital Signs: Verdana 4d Verdana 4d Vital Signs: Verdana 4d Verdana 4Bd Last Vital Signs Verdana 4d Lifeguard New 4d Lifeguard New 4d Temp 97.0 F 08/03/21 07:38 Lifeguard New 4d Pulse 86 08/03/21 07:38 Lifeguard New 4d Resp 20 08/03/21 07:38 BP 107/59 L 08/03/21 07:38 Pulse Ox 98 08/03/21 07:38 BMI result Body Mass Index 19.1 Const: Other: Constitutional : Alert, oriented, not in distress Neck : Normal inspection, Supple Cardiovascular : RRR, S1 S2, no lower extremity edema Respiratory : Good bilateral air entry, no crackles, wheezes or rhonchi Gastrointestinal: soft, lax, Normal bowel sounds, Non tender, ostomy in place with no surrounding erythema Skin : Warm, Dry Neurological : Alert & oriented x3, No focal deficit Objective Data Active Medications Acetaminophen (Acetaminophen 325 Mg Tablet) 650 mg PO Q6H PRN PRN Reason: Pain, Mild (Pain Scale 1-3) Last Admin: 08/03/21 09:20 Dose: 650 mg Documented by: XUAN Benztropine Mesylate (Benztropine Mesylate 1 Mg Tablet) 1 mg PO BID PRN PRN Reason: Extrapyramidal Effects/Symptoms Bethanechol Chloride (Bethanechol Chloride 25 Mg Tablet) 25 mg PO TIDAC [facility] Last Admin: 08/03/21 08:13 Dose: 25 mg Documented by: XUAN Clonazepam (Clonazepam 1 Mg Tablet) 2 mg PO BEDTIME [facility] Last Admin: 08/02/21 22:02 Dose: 2 mg Documented by: JOSÉ Clonidine HCl (Clonidine Hcl 0.1 Mg Tablet) 0.1 mg PO BEDTIME AMELIA; Protocol Last Admin: 08/02/21 22:02 Dose: 0.1 mg Documented by: JOSÉ Clonidine HCl (Clonidine Hcl 0.1 Mg Tablet) 0.1 mg PO BID PRN; Protocol PRN Reason: NIGHTMARES,HYPERAROUSAL,ANXIETY Diphenhydramine HCl (Diphenhydramine Hcl 25 Mg Tablet) 25 mg PO BEDTIME [facility] Last Admin: 08/02/21 22:02 Dose: 25 mg Documented by: JOSÉ Duloxetine HCl (Duloxetine Hcl 30 Mg Capsule.) 90 mg PO DAILY [facility] Last Admin: 08/03/21 08:13 Dose: 90 mg Documented by: XUAN Enoxaparin Sodium (Enoxaparin Sodium 40 Mg/0.4 Ml Syringe) 40 mg SUBCUT Q24H [facility] Last Admin: 08/03/21 05:54 Dose: Not Given Documented by: JOSÉ Non-Admin Reason: Patient Refused Fluoxetine HCl (Fluoxetine Hcl 20 Mg Capsule) 20 mg PO DAILY [facility] Last Admin: 08/03/21 08:13 Dose: 20 mg Documented by: XUAN Gabapentin (Gabapentin 400 Mg Capsule) 400 mg PO DAILY PRN PRN Reason: BREAKTHROUGH NEUROPATHIC PAIN Gabapentin (Gabapentin 400 Mg Capsule) 800 mg PO BID [facility] Last Admin: 08/03/21 08:13 Dose: 800 mg Documented by: XUAN Hydromorphone HCl (Hydromorphone Hcl 2 Mg Tablet) 1 mg PO Q4H PRN PRN Reason: Pain, Severe (Pain Scale 7-10) Hydroxyzine HCl (Hydroxyzine Hcl 25 Mg Tablet) 25 mg PO BEDTIME PRN PRN Reason: Anxiety Loperamide HCl (Loperamide Hcl 2 Mg Capsule) 4 mg PO Q4H PRN PRN Reason: Diarrhea Lurasidone HCl (Lurasidone Hcl 20 Mg Tablet) 20 mg PO BEDTIME [facility] Last Admin: 08/02/21 22:03 Dose: 20 mg Documented by: JOSÉ Ondansetron HCl (Ondansetron Hcl 4 Mg/2 Ml Vial) 4 mg IVPUSH Q8H PRN PRN Reason: Nausea and Vomiting Last Admin: 08/03/21 08:28 Dose: 4 mg Documented by: XUAN Sodium Chloride (0.9 % Sodium Chloride Flush 3 Ml Syringe) [facility] Last Admin: 08/03/21 08:14 Dose: 3 ml Documented by: XUAN Trazodone HCl (Trazodone Hcl 100 Mg Tablet) 100 mg PO BEDTIME [facility] Last Admin: 08/02/21 22:03 Dose: 100 mg Documented by: JOSÉ Zolpidem Tartrate (Zolpidem Tartrate 5 Mg Tablet) 5 mg PO BEDTIME [facility] Last Admin: 08/02/21 22:03 Dose: 5 mg Documented by: JOSÉ Labs CBC & Chem 7: 08/02/21 08:41 08/03/21 04:07 Labs: Laboratory Results - last 24 hr 08/03/21 04:07 Anion Gap 9 L Estim Creat Clear Calc 85.5 Estimated GFR > 60 Random Glucose 90 Calcium 9.5 D Assessment and Plan (1) Ileus: Status: Acute (2) Hx of total colectomy: Status: Acute (3) Cocaine use disorder: Status: Acute (4) Anorexia nervosa: Status: Acute Plan A 35 years old lady with PMH of drug abuse, anorexia nervosa, depression, post ileostomy who started to complain of abdominal pain today. Ileus / SBO CT scan showed evidence of possible ileus versus SBO Discontinue fluid Advanced diet to regular Change Dilaudid to p.o. Zofran for nausea Surgery input appreciated, Advanced diet Anorexia nervosa To get global sourcing manager evaluation Drug abuse To get addiction team eval Pseudo hyper calcemia Corrected calcium of 10.3 DVT PPX Lovenox Quality Stroke Does the patient have a stroke diagnosis?: No VTE Prior VTE?: No VTE Risk Level:: Medical - moderate - high VTE Device Contraindication: Treatment Not Indicated VTE Drug Contraindication: N/A - Med Ordered
--- NOTE | 2021-08-03 13:01 | HO.ADDICT_ITS ---
History of Present Illness Date of Service: 08/03/2020 Chief Complaint: Ileus Reason for Consult: evaluation of OUD Requesting physician: Irene Bravo Discussed with referring provider: Yes Sources of Information: patient interviewed and chart reviewed HPI Narrative: Patient is a 35 year old female with diagnosis of anorexia nervosa, opioid use disorder and MDD. Patient was initially admitted to psychiatric unit following reported intentional opiid overdose. She was transferred to medical floor for concern of ileus. Consult placed by hospitalist to address OUD as patient had recently started naltrexone and it was d/c due to pain management needs. Patient seen in room 350. Recovery support RN present during interview. Patient awake, alert, laying bed. Flat affect. Reporting 10/10 pain. Verbalizing that medication order change from IV to PO was not going to be adequate. Very focused on IV pain medication, I'll even have morphine, but it has to be IV . Stating that she felt food was expanding in her stomach. Feeling she needs another CT scan- with contrast this time Able to elicit some history from patient--which was already obtained and docum ented in H&P--history of daily heroin use up to 2 bundles daily until February 2021, when she reports ATS admission. Following this admission she reports she has been using between 1-3 days per week 2 bags of heroin (fentanyl) at a time. She identifies pain as her major trigger and reason for using. Attempted to discuss MOUD as an option and patient stated that Buprenorphine was not helpful for her pain when she was on it previously and she would be interested in taking methadone only once, right now for this pain . She also reported a history of crack cocaine use, which she reports was only so that I could clear the mucus from my rectum since it would not happen on it's own . Viewed cocaine use as the only option for clearing this mucus that would otherwise build up she reported. Little to no insight regarding substance use as an issue currently. Past Psychiatric History: -Per chart, hx of suicide attempts at age 10 and 22. -Per chart, hx of IPLOC 32x in the [place] area for her eating disorder. [place] [facility] [place] Hx of admission to [facility]. -Hx of OP therapy since age 12, psychiatrist is Dr. James -Hx of disordered eating/ anorexia since age 16. -Hx of TMS in 2019 at [facility], denied benefit shelter. -Past med trials: Pt reports she was on prozac simultaneously with cymbalta, h owever this was discontinued and cymbalta was increased. She denies benefit on prozac. Also says she is ?very opposed? to seroquel. Wellbutrin. Lamictal (rash). Remeron. Medical Evaluation Reviewed: Yes Review of Systems Constitutional: Reports as per HPI Comments: reporting 10 pain. denies any opioid withdrawal sx Diagnostics Vital Signs (24Hr): Vital Signs - 24 hr 08/02/21 16:00 08/02/21 17:06 08/02/21 20:00 Temperature 98.6 F 97.6 F Pulse Rate 86 79 Respiratory Rate 18 17 18 Blood Pressure 114/61 118/68 Pulse Oximetry 98 99 08/02/21 23:28 08/03/21 04:00 08/03/21 07:38 Temperature 97.5 F 97.8 F 97.0 F Pulse Rate 92 59 86 Respiratory Rate 18 18 20 Blood Pressure 173/90 H 92/52 L 107/59 L Pulse Oximetry 96 95 98 08/03/21 11:31 08/03/21 11:46 Temperature 98.5 F 98.2 F Pulse Rate 57 57 Respiratory Rate 20 20 Blood Pressure 101/58 L 101/64 Pulse Oximetry 98 95 BMI result Verdana 4 Body Mass Index Verdana 4 19.1 Verdana 4 Verdana 4 Labs Results: 08/02/21 08:41 08/03/21 04:07 Labs: Laboratory Results - last 48 hr 08/02/21 08/02/21 08/03/21 08:41 08:41 04:07 WBC 4.9 RBC 5.09 Hgb 14.7 Hct 45.0 MCV 88.4 MCH 28.9 MCHC 32.7 RDW 12.9 Plt Count 313 MPV 9.7 Immature Gran % (Auto) 0.2 Neut % (Auto) 60.6 Lymph % (Auto) 27.0 Dewitt % (Auto) 5.7 Eos % (Auto) 6.1 H Baso % (Auto) 0.4 Lymph # (Auto) 1.3 Dewitt # (Auto) 0.3 Eos # (Auto) 0.3 Baso # (Auto) 0.0 Abs Immat Gran (auto) 0.01 Absolute Neuts (auto) 3.0 Absolute Nucleated RBC 0.000 Nucleated RBC % (auto) 0.0 Sodium 138 139 Potassium 5.1 D 4.7 Chloride 106 109 H Carbon Dioxide 23 26 Anion Gap 14 9 L BUN 14 11 Creatinine 0.93 0.73 Estim Creat Clear Calc 67.2 85.5 Estimated GFR > 60 > 60 Random Glucose 108 90 Calcium 10.8 H 9.5 D Mental Status Exam Mental Status Exam Patient Appearance: Appropriate Patient Orientation: Person, Place, Time and Situation Level of Consciousness: Awake and Alert Patient Behavior: Guarded Mood Description: Flat Affect Description: Flat (irritable ) Speech Pattern: Clear Thought Process: Linear Thought Content: positive for Perseveration Judgement: Poor (poor insight ) Medications Medications Current Medications Acetaminophen (Acetaminophen 325 Mg Tablet) 650 mg PO Q6H PRN PRN Reason: Pain, Mild (Pain Scale 1-3) Last Admin: 08/03/21 09:20 Dose: 650 mg Documented by: Benztropine Mesylate (Benztropine Mesylate 1 Mg Tablet) 1 mg PO BID PRN PRN Reason: Extrapyramidal Effects/Symptoms Bethanechol Chloride (Bethanechol Chloride 25 Mg Tablet) 25 mg PO TIDAC [facility] Last Admin: 08/03/21 12:26 Dose: Not Given Documented by: Clonazepam (Clonazepam 1 Mg Tablet) 2 mg PO BEDTIME AMELIA Last Admin: 08/02/21 22:02 Dose: 2 mg Documented by: Clonidine HCl (Clonidine Hcl 0.1 Mg Tablet) 0.1 mg PO BEDTIME AMELIA; Protocol Last Admin: 08/02/21 22:02 Dose: 0.1 mg Documented by: Clonidine HCl (Clonidine Hcl 0.1 Mg Tablet) 0.1 mg PO BID PRN; Protocol PRN Reason: NIGHTMARES,HYPERAROUSAL,ANXIETY Diphenhydramine HCl (Diphenhydramine Hcl 25 Mg Tablet) 25 mg PO BEDTIME AMELIA Last Admin: 08/02/21 22:02 Dose: 25 mg Documented by: Duloxetine HCl (Duloxetine Hcl 30 Mg Capsule.) 90 mg PO DAILY [facility] Last Admin: 08/03/21 08:13 Dose: 90 mg Documented by: Enoxaparin Sodium (Enoxaparin Sodium 40 Mg/0.4 Ml Syringe) 40 mg SUBCUT Q24H [facility] Last Admin: 08/03/21 05:54 Dose: Not Given Documented by: Fluoxetine HCl (Fluoxetine Hcl 20 Mg Capsule) 20 mg PO DAILY [facility] Last Admin: 08/03/21 08:13 Dose: 20 mg Documented by: Gabapentin (Gabapentin 400 Mg Capsule) 400 mg PO DAILY PRN PRN Reason: BREAKTHROUGH NEUROPATHIC PAIN Gabapentin (Gabapentin 400 Mg Capsule) 800 mg PO BID [facility] Last Admin: 08/03/21 08:13 Dose: 800 mg Documented by: Hydromorphone HCl (Hydromorphone Hcl 1 Mg/Ml Syringe) 0.5 mg IVPUSH Q4H PRN; Protocol PRN Reason: Pain, Severe (Pain Scale 7-10) Hydroxyzine HCl (Hydroxyzine Hcl 25 Mg Tablet) 25 mg PO BEDTIME PRN PRN Reason: Anxiety Loperamide HCl (Loperamide Hcl 2 Mg Capsule) 4 mg PO Q4H PRN PRN Reason: Diarrhea Lurasidone HCl (Lurasidone Hcl 20 Mg Tablet) 20 mg PO BEDTIME [facility] Last Admin: 08/02/21 22:03 Dose: 20 mg Documented by: Ondansetron HCl (Ondansetron Hcl 4 Mg/2 Ml Vial) 4 mg IVPUSH Q8H PRN PRN Reason: Nausea and Vomiting Last Admin: 08/03/21 08:28 Dose: 4 mg Documented by: Sodium Chloride (0.9 % Sodium Chloride Flush 3 Ml Syringe) 3 ml IVFLUSH QSHIFT [facility] Last Admin: 08/03/21 08:14 Dose: 3 ml Documented by: Trazodone HCl (Trazodone Hcl 100 Mg Tablet) 100 mg PO BEDTIME [facility] Last Admin: 08/02/21 22:03 Dose: 100 mg Documented by: Zolpidem Tartrate (Zolpidem Tartrate 5 Mg Tablet) 5 mg PO BEDTIME [facility] Last Admin: 08/02/21 22:03 Dose: 5 mg Documented by: Allergies Allergies Allergy/AdvReac Type Severity Reaction Status Date / Time buspirone [From Allergy Swelling Verified 07/23/21 19:02 BuSpar] chlorpromazine Allergy Anaphylaxis Verified 07/23/21 19:02 [From Thorazine] lamotrigine [From Allergy Rash Verified 07/23/21 19:02 Lamictal] Sulfa (Sulfonamide Allergy Rash Verified 07/23/21 19:02 Antibiotics) linaclotide [From AdvReac Abdominal Verified 07/23/21 19:02 Linzess] Pain quetiapine [From AdvReac bad side Verified 07/23/21 19:02 Seroquel] effects' topiramate AdvReac Fogginess Verified 07/23/21 19:02 ziprasidone [From AdvReac psychosis Verified 07/23/21 19:02 Geodon] Assessment & Plan Assessment & Plan (1) Opioid use disorder, severe, dependence: Status: Acute Code(s): F11.20 - Opioid dependence, uncomplicated Assessment and Plan: * avoid IV pain medications if possible and provide non opioid pain medications when indicated * patient with little insight related to continued substance use and rigid regarding treatment options for reported discomfort. While she is denying any withdrawal sx, she is displaying overt signs of cravings and medication seekin g. She is declining MOUD (medications for opioid use disorder) at this time but requesting opioids. At one time bargaining, if you give me just one more dose to get through this, I won't ask for anymore . Continuation of pain medications, particularly IV, would not be in patient's best interest * underlying medical and psychiatric diagnosis adding to complexity of this case I spent __45____ minutes with the patient and/or on the patient floor today, greater than?50% of which was spent counseling/coordinating care. 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 Primary fibromyalgia syndrome Self-catheterizes urinary bladder Social History Social History Household Members: Spouse Housing: House Do you presently have visiting nurse or other home services: No Patient Tobacco Use Status: Never used Tobacco Tobacco use type: Cigarette Cigarettes Per Day: 1 Years Smoked: Started age 17 e-Cigarette/Vaping Use: Never Used Second Hand Smoke Exposure: No Substance Use Type: Crack/Cocaine and Heroin Currently Displaying Signs/Symptoms of Drug Intoxication Withdrawal: No Advance Directives: No Advance Directives Information Provided: Yes Do you have thoughts of harming others: None Do you have a plan to hurt others: No Plan service: No Current occupational status: unemployed Sexual orientation: Straight/Heterosexual
--- NOTE | 2021-08-03 17:31 | PM.PSYCN ---
History of Present Illness Date of Service: 08/03/21 Chief Complaint: Ileus Reason for Consult: disposition Requesting physician: Irene Bravo Discussed with referring provider: Yes Sources of Information: patient interviewed, chart reviewed and crisis/core team assessment reviewed HPI Narrative: Zuleyma is a 35 y.o. Female who carries a dx of PTSD, likely BPD, anorexia nervosa, polysubstance abuse, and MDD, recurrent episode.? [place] [facility] [place], now medically cleared. Psych consult placed for disposition to determine need for continued psychiatric inpatient care on M5. I evaluated the pt this evening and upon inquiry she reports she feels ?so angry? due to her medical issues, thinks this is caused by slow gastric motility and that she has re-feeding syndrome. She is tearful, says she feels like she has been through ?so much torture? and feels ?so scared.? She continues to endorse struggling with disordered eating, says ?I still feel like im binging? and feels frustrated that when she is eating it has been ?making me sick.? She asks if latuda can cause wt gain. Says she knows her anorexia ?is a psychiatric problem but it results in so many physical complications, i dont know how to do it on my own.? Pt says she has a long hx of avoidance and ?I dont talk about my eating disorder with anyone.? Has been using dilaudid for GI pain and is anxious about coming off this. Discussed [facility] and considering inpatient level of care for her anorexia, as she continues to report ?I want to be thin.? However, says she does not want to go inpatient because she doesnt want to gain weight. Says she is currently willing to eat and feels hungry ?but i?m gonna be scared to eat once food starts making you sick.?? Past Psychiatric History: -Per chart, hx of suicide attempts at age 10 and 22. -Per chart, hx of IPLOC 32x in the [place] area for her eating disorder. [place] of [place] 2x [place] [facility] [place] Hx of admission to [facility]. -Hx of OP therapy since age 12, psychiatrist is Dr. James -Hx of disordered eating/ anorexia since age 16. -Hx of TMS in 2020 at [facility], denied benefit [employer] die [employer]. -Past med trials: Pt reports she was on prozac simultaneously with cymbalta, however this was discontinued and cymbalta was increased. She denies benefit on prozac. Also says she is ?very opposed? to seroquel. Wellbutrin. Lamictal (rash). Remeron. 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 Social History: -Lives with her bf, who she says is supportive. 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 Trauma History: -Per chart, describes past several years with organ failure related to anorexia, experiences from substance use, as traumatic. Diagnostics Vital Signs (24Hr): Vital Signs - 24 hr 08/02/21 20:00 08/02/21 23:28 08/03/21 04:00 Temperature 97.6 F 97.5 F 97.8 F Pulse Rate 79 92 59 Respiratory Rate 18 18 18 Blood Pressure 118/68 173/90 H 92/52 L Pulse Oximetry 99 96 95 08/03/21 07:38 08/03/21 11:31 08/03/21 11:46 Temperature 97.0 F 98.5 F 98.2 F Pulse Rate 86 57 57 Respiratory Rate 20 20 20 Blood Pressure 107/59 L 101/58 L 101/64 Pulse Oximetry 98 98 95 08/03/21 15:12 Temperature 97.8 F Pulse Rate 95 Respiratory Rate 16 Blood Pressure 116/74 Pulse Oximetry 99 BMI result Body Mass Index 19.1 Labs Results: 08/02/21 08:41 08/04/21 06:36 Labs: Laboratory Results - last 48 hr 08/02/21 08/02/21 08/03/21 08:41 08:41 04:07 WBC 4.9 RBC 5.09 Hgb 14.7 Hct 45.0 MCV 88.4 MCH 28.9 MCHC 32.7 RDW 12.9 Plt Count 313 MPV 9.7 Immature Gran % (Auto) 0.2 Neut % (Auto) 60.6 Lymph % (Auto) 27.0 Foster % (Auto) 5.7 Eos % (Auto) 6.1 H Baso % (Auto) 0.4 Lymph # (Auto) 1.3 Foster # (Auto) 0.3 Eos # (Auto) 0.3 Baso # (Auto) 0.0 Abs Immat Gran (auto) 0.01 Absolute Neuts (auto) 3.0 Absolute Nucleated RBC 0.000 Nucleated RBC % (auto) 0.0 Sodium 138 139 Potassium 5.1 D 4.7 Chloride 106 109 H Carbon Dioxide 23 26 Anion Gap 14 9 L BUN 14 11 Creatinine 0.93 0.73 Estim Creat Clear Calc 67.2 85.5 Estimated GFR > 60 > 60 Random Glucose 108 90 Calcium 10.8 H 9.5 D Mental Status Exam Mental Status Exam Narrative: A&O. Pt is frail appearing, lying down in bed, in hospital attire. Good eye contact, attentive. No Tics or Tremors. No abnormal involuntary movements. Calm, cooperative, engaged. Non-pressured speech, spontaneous with regular rate and rhythm, normal volume and prosody. No prolonged speech latency or dysarthria. Mood is ?depressed,? affect is tearful, anxious. Denies SI/SIB/HI upon inquiry. Denies A/VH or delusional thought content. Thoughts are coherent but distracted. No known cognitive or memory impairment. Insight/ Judgment is poor due to chronic self harm behaviors and substance use. Medications Medications Current Medications Acetaminophen (Acetaminophen 325 Mg Tablet) 650 mg PO Q6H PRN PRN Reason: Pain, Mild (Pain Scale 1-3) Last Admin: 08/03/21 09:20 Dose: 650 mg Documented by: Benztropine Mesylate (Benztropine Mesylate 1 Mg Tablet) 1 mg PO BID PRN PRN Reason: Extrapyramidal Effects/Symptoms Bethanechol Chloride (Bethanechol Chloride 25 Mg Tablet) 25 mg PO TIDAC [facility] Last Admin: 08/03/21 12:26 Dose: Not Given Documented by: Clonazepam (Clonazepam 1 Mg Tablet) 2 mg PO BEDTIME [facility] Last Admin: 08/02/21 22:02 Dose: 2 mg Documented by: Clonidine HCl (Clonidine Hcl 0.1 Mg Tablet) 0.1 mg PO BEDTIME [facility]; Protocol Last Admin: 08/02/21 22:02 Dose: 0.1 mg Documented by: Clonidine HCl (Clonidine Hcl 0.1 Mg Tablet) 0.1 mg PO BID PRN; Protocol PRN Reason: NIGHTMARES,HYPERAROUSAL,ANXIETY Diphenhydramine HCl (Diphenhydramine Hcl 25 Mg Tablet) 25 mg PO BEDTIME [facility] Last Admin: 08/02/21 22:02 Dose: 25 mg Documented by: Duloxetine HCl (Duloxetine Hcl 30 Mg Capsule.Dr) 90 mg PO DAILY [facility] Last Admin: 08/03/21 08:13 Dose: 90 mg Documented by: Enoxaparin Sodium (Enoxaparin Sodium 40 Mg/0.4 Ml Syringe) 40 mg SUBCUT Q24H [facility] Last Admin: 08/03/21 05:54 Dose: Not Given Documented by: Fluoxetine HCl (Fluoxetine Hcl 20 Mg Capsule) 20 mg PO DAILY [facility] Last Admin: 08/03/21 08:13 Dose: 20 mg Documented by: Gabapentin (Gabapentin 400 Mg Capsule) 400 mg PO DAILY PRN PRN Reason: BREAKTHROUGH NEUROPATHIC PAIN Gabapentin (Gabapentin 400 Mg Capsule) 800 mg PO BID [facility] Last Admin: 08/03/21 08:13 Dose: 800 mg Documented by: Hydromorphone HCl (Hydromorphone Hcl 1 Mg/Ml Syringe) 0.5 mg IVPUSH Q4H PRN; Protocol PRN Reason: Pain, Severe (Pain Scale 7-10) Last Admin: 08/03/21 13:04 Dose: 0.5 mg Documented by: Hydroxyzine HCl (Hydroxyzine Hcl 25 Mg Tablet) 25 mg PO BEDTIME PRN PRN Reason: Anxiety Loperamide HCl (Loperamide Hcl 2 Mg Capsule) 4 mg PO Q4H PRN PRN Reason: Diarrhea Lurasidone HCl (Lurasidone Hcl 20 Mg Tablet) 20 mg PO BEDTIME [facility] Last Admin: 08/02/21 22:03 Dose: 20 mg Documented by: Ondansetron HCl (Ondansetron Hcl 4 Mg/2 Ml Vial) 4 mg IVPUSH Q8H PRN PRN Reason: Nausea and Vomiting Last Admin: 08/03/21 08:28 Dose: 4 mg Documented by: Sodium Chloride (0.9 % Sodium Chloride Flush 3 Ml Syringe) 3 ml IVFLUSH QSHIFT [facility] Last Admin: 08/03/21 08:14 Dose: 3 ml Documented by: Trazodone HCl (Trazodone Hcl 100 Mg Tablet) 100 mg PO BEDTIME [facility] Last Admin: 08/02/21 22:03 Dose: 100 mg Documented by: Zolpidem Tartrate (Zolpidem Tartrate 5 Mg Tablet) 5 mg PO BEDTIME [facility] Last Admin: 08/02/21 22:03 Dose: 5 mg Documented by: Allergies Allergies Allergy/AdvReac Type Severity Reaction Status Date / Time buspirone [From BuSpar] Allergy Swelling Verified 07/23/21 19:02 chlorpromazine Allergy Anaphylaxis Verified 07/23/21 19:02 [From Thorazine] lamotrigine [From Lamictal] Allergy Rash Verified 07/23/21 19:02 Sulfa (Sulfonamide Allergy Rash Verified 07/23/21 19:02 Antibiotics) linaclotide [From Linzess] AdvReac Abdominal Verified 07/23/21 19:02 Pain quetiapine [From Seroquel] AdvReac bad side Verified 07/23/21 19:02 effects' topiramate AdvReac Fogginess Verified 07/23/21 19:02 ziprasidone [From Geodon] AdvReac psychosis Verified 07/23/21 19:02 Assessment & Plan Assessment & Plan (1) Cocaine use disorder: Status: Acute Code(s): F14.10 - Cocaine abuse, uncomplicated (2) Major depressive disorder, recurrent, moderate: Status: Acute Code(s): F33.1 - Major depressive disorder, recurrent, moderate (3) Opioid use disorder, severe, dependence: Status: Acute Code(s): F11.20 - Opioid dependence, uncomplicated (4) Anorexia nervosa, restricting type: Status: Acute Code(s): F50.01 - Anorexia nervosa, restricting type (5) PTSD (post-traumatic stress disorder): Status: Acute Code(s): F43.10 - Post-traumatic stress disorder, unspecified Plan Psych consult placed for disposition. Pt would benefit from continued psychiatric care on M5 due to continuing to struggle with mood dysregulation, anxious/ intrusive thoughts, urges to restrict, irritability, and difficulty maintaining safety around disordered eating behaviors. Pt was recently started on latuda on M5, will continue trial to target sx of depression, impulsivity, and mood instability. She was also re-started on fluoxetine for sx of PTSD, depression, and anxiety. She is pre-contemplative for accepting referrals to [place] for inpatient level of care for anorexia. Will continue to discuss case with SW. -Continue monitoring medically. Patient is currently medically cleared. -Consult requested for disposition -Patient cannot leave AGAINST MEDICAL ADVICE. -Care Team evaluation return to M5 initial treatments ordered I have shared this with Dr. Bravo Thank you for this consultation. If you have any questions or concerns, please do not hesitate to contact psychiatry service. ? I spent minutes with the patient and/or on the patient floor today, greater than?50% of which was spent counseling/coordinating care.
[2021-08-03] MEDS: Gabapentin 400 MG CAPSULE PO (18:16)
[2021-08-03] MEDS: cloNIDine HCL 0.1 MG TABLET PO (22:28)
[2021-08-03] MEDS: diphenhydrAMINE HCL 25 MG TABLET PO (22:28)
[2021-08-03] MEDS: Lurasidone HCl 20 MG TABLET PO (22:29)
[2021-08-03] MEDS: clonazePAM 1 MG TABLET 2 MG PO (22:29)
[2021-08-03] MEDS: Zolpidem Tartrate 5 MG TABLET PO (22:29)
[2021-08-03] MEDS: traZODone HCL 100 MG TABLET PO (22:29)
[2021-08-04] MEDS: 0.9 % Sodium Chloride Flush 3 ML SYRINGE IVFLUSH ×2 (01:19→07:56)
[2021-08-04 04:00] VITALS: BP 105/55; PULSE 52; RESP 17; TEMP 36.2; O2SAT 97
[2021-08-04 07:09] VITALS: BP 110/65; PULSE 49; RESP 18; TEMP 36.7; O2SAT 100
[2021-08-04 07:30] LABS: Anion Gap 9 (12-20); Blood Urea Nitrogen 8 mg/dL (9-16); Calcium 9.5 mg/dL (8.4-10.2); Carbon Dioxide 30 mmol/L (22-29); Chloride 107 mmol/L (96-108); Creatinine Clr Calc Pharmacy 77.1; Estimated Glomerular Filt Rate > 60; Glucose Random 90 mg/dL (60-115); Potassium 4.5 mmol/L (3.3-5.1); Sodium 141 mmol/L (135-145)
[2021-08-04] MEDS: DULoxetine HCl 30 MG CAPSULE.DR 90 MG PO (07:54)
[2021-08-04] MEDS: Gabapentin 400 MG CAPSULE 800 MG PO (07:55)
[2021-08-04] MEDS: FLUoxetine HCl 20 MG CAPSULE PO (07:55)
[2021-08-04] MEDS: ondansetron HCL 4 MG/2 ML VIAL IVPUSH (09:22)
[2021-08-04] MEDS: Ketorolac Tromethamine 30 MG/ML VIAL 15 MG IVPUSH (09:24)
--- NOTE | 2021-08-04 11:12 | P.DS_ITS ---
DS: Providers Provider Date of Service: 08/04/21 Date of admission: 08/01/21 20:40 Primary care physician: Nonstaff Physician Consults: 08/02/21 15:08 Consult to General Surgery Routine Consulting Provider: Martha Lozoya Reason for consultation: Hx ileostomy, SBO vs Ileus 08/03/21 09:04 Addiction Medicine Routine Consulting Provider: Alisa Andersen Reason for consultation: opioid abuse, hx anorexia nervosa 08/04/21 08:26 Consult to Care Team Routine Comment: Reason for consultation: eval and Placement DS: Diagnosis Discharge Diagnosis (1) Ileus: Status: Acute (2) Abdominal pain: Status: Acute (3) Cocaine use disorder: Status: Acute (4) Anorexia nervosa: Status: Acute DS: Summary Hospital Course Hospital Course: Admission note HPI A 35 years old lady with PMH of drug abuse, anorexia nervosa, depression, post ileostomy who started to complain of abdominal pain today.? The patient was admitted to the psych floor for suicidal intention.? Started on treatment with naltrexone to help with drug abuse.? Reported abdominal pain mainly epigastric not radiating anywhere not associated with any nausea or vomiting but has few episodes of watery stool.? Denies any fever, chills, chest pain or urinary symptoms.? Hospitalist team was asked to evaluate the patient. CT scan of the abdomen was consistent with possibilities. Patient was transferred to the medical floor for further evaluation and treatment. Hospital course The patient was admitted for an ileus. Started on IV fluid, pain medication and nausea medication with fair response as she was able to tolerate diet. Evaluated by surgical team who recommended advancing diet as no intervention needed. she was evaluated by addiction team who recommended holding hold opioids specially IV once as the patient showed no insight to the problem. She refused other possible treatment options. Pre evaluated by care team who recommended readmission to the psych floor for further treatment. The patient will be on Reglan around mealtime to help with nausea and motility. She will need to follow-up as outpatient with her surgery team at [facility] after discharge. Time Spent with Patient Time attestation: Total time spent providing and/or coordinating discharge services: Discharge coordination time: Greater than 30 minutes Quality: Stroke Does the patient have a stroke diagnosis?: No Physical Exam Verdana 4l Vital Signs: Verdana 4d Verdana 4d Vital Signs: Verdana 4d Verdana 4Bd Last Vital Signs Verdana 4d 4d Pablo Murray 4d Temp 98.1 F 08/04/21 07:09 4d Pulse 49 L 08/04/21 07:09 Program Manager 4d Resp 18 08/04/21 07:09 BP 110/65 08/04/21 07:09 Pulse Ox 100 08/04/21 07:09 BMI result Body Mass Index 19.1 Const: Other: Constitutional : Alert, oriented, not in distress Neck : Normal inspection, Supple Cardiovascular : RRR, S1 S2, no lower extremity edema Respiratory : Good bilateral air entry, no crackles, wheezes or rhonchi Gastrointestinal: soft, lax, Normal bowel sounds, Non tender, ostomy in place with no surrounding erythema Skin : Warm, Dry Neurological : Alert & oriented x3, No focal deficit DS: Data Data Completed and Pending Labs on day of discharge: Laboratory Results - last 24 hr 08/04/21 06:36 Sodium 141 Potassium 4.5 Chloride 107 Carbon Dioxide 30 H Anion Gap 9 L BUN 8 L Creatinine 0.81 Estim Creat Clear Calc 77.1 Estimated GFR > 60 Random Glucose 90 Calcium 9.5 Discharge Plan Discharge Patient Disposition: Xfer Psychiatric Hosp Referrals: Physician,Nonstaff [Primary Care Provider] - 1 Week Discharge Medications: Continued clonazepam [Klonopin] 2 mg tablet 2 mg PO BEDTIME Qty: 7 1RF gabapentin 800 mg Tablet 800 mg PO BID 0RF trazodone 100 mg Tablet 100 mg PO BEDTIME 0RF loperamide 2 mg capsule 2 cap PO Q4H PRN (Reason: Diarrhea) 0RF diphenhydramine HCl [Wal-Sleep Z] 25 mg Capsule 25 mg PO BEDTIME 0RF bethanechol chloride 25 mg tablet 1 tab PO TIDAC 0RF lurasidone 20 mg Tablet 20 mg PO BEDTIME 0RF Rx Instructions: must administer with food (at least 350 calories) metoclopramide HCl 5 mg Tablet 5 mg PO QIDACHS PRN (Reason: Nausea) 0RF naltrexone 50 mg Tablet 25 mg PO DAILY 0RF zolpidem 5 mg Tablet 5 mg PO BEDTIME 0RF acetaminophen 325 mg Tablet 650 mg PO Q6H PRN (Reason: HEADACHE/MILD PAIN) 0RF benztropine 1 mg Tablet 1 mg PO BID PRN (Reason: Extrapyramidal Effects/Symptoms) 0RF clonidine HCl 0.1 mg Tablet 0.1 mg PO BID PRN (Reason: NIGHTMARES,HYPERAROUSAL,ANXIETY) 0RF clonidine HCl 0.1 mg Tablet 0.1 mg PO BEDTIME 0RF duloxetine 30 mg Capsule,Delayed Release(Dr/Ec) 90 mg PO DAILY 0RF fluoxetine 20 mg Capsule 20 mg PO DAILY 0RF gabapentin 400 mg Capsule 400 mg PO DAILY PRN (Reason: BREAKTHROUGH NEUROPATHIC PAIN) 0RF hydroxyzine HCl 25 mg Tablet 25 mg PO BEDTIME PRN (Reason: Anxiety) 0RF Discharge Orders: Discharge Order (Routine); Ordered 08/04/21 Ordered By: Irene Bravo Activity on Discharge: As tolerated Stand Alone Forms: Patient Portal Discharge page
[2021-08-04 11:31] VITALS: BP 107/63; PULSE 66; RESP 18; TEMP 36.9; O2SAT 100
--- NOTE | 2021-08-04 11:46 | MHC.CM.PN ---
PER HOSPITALIST PT DISCHARGING TO , PT WILL BE TRANSPORTED BY [facility] STAFF.
[2021-08-04] MEDS: Metoclopramide HCl 5 MG TABLET PO ×2 (12:14→17:10)
[2021-08-04 15:31] VITALS: BP 125/76; PULSE 67; RESP 17; TEMP 36.6; O2SAT 99
[2021-08-04] MEDS: Bethanechol Chloride 25 MG TABLET PO (17:10)
[2021-08-04 18:00] VITALS: RESP 20
== END 2021-08-04 19:25 | DRG 247 ==
PROVIDERS: Internal Medicine; Admitting Provider Student in an Organized Health Care Education/Training Program; PCP Family Medicine; Visit Provider Student in an Organized Health Care Education/Training Program
DX: K56.7 Ileus, unspecified (principal); F50.01 Anorexia nervosa, restricting type; F33.1 Major depressive disorder, recurrent, moderate; F14.10 Cocaine abuse, uncomplicated; F17.210 Nicotine dependence, cigarettes, uncomplicated; Z91.51 Personal history of suicidal behavior; Z71.6 Tobacco abuse counseling; Z93.2 Ileostomy status; Z68.1 Body mass index [BMI] 19.9 or less, adult; Z88.2 Allergy status to sulfonamides; Z79.899 Other long term (current) drug therapy
CPT/HCPCS: 36415; 80048; 85025; J1170; J1885; J2270; J2405; Q0163

== ENCOUNTER 2021-08-04 19:27 | Inpatient (IN) | payer OTHER, SELFPAY ==
[2021-08-04 22:25] VITALS: BP 120/76; PULSE 94; TEMP 36.9
[2021-08-04] MEDS: diphenhydrAMINE HCL 25 MG TABLET PO (22:34)
[2021-08-04] MEDS: Lurasidone HCl 20 MG TABLET PO (22:35)
[2021-08-04] MEDS: cloNIDine HCL 0.1 MG TABLET PO (22:35)
[2021-08-04] MEDS: clonazePAM 1 MG TABLET 2 MG PO (22:36)
[2021-08-04] MEDS: traZODone HCL 100 MG TABLET PO (22:36)
[2021-08-04] MEDS: Zolpidem Tartrate 5 MG TABLET PO (22:42)
[2021-08-04] MEDS: Gabapentin 400 MG CAPSULE 800 MG PO (22:54)
--- NOTE | 2021-08-05 02:08 | PC.ADMIT ---
A white female aged 35 years [facility] following referral from [facility] and [facility] med floor. Pt had previously been admitted to on 07/27 and was transferred to medical floor on 08/01 due to suspected intestinal blockage. Pt was medically cleared to return to today. Pt has a long history of hospitalizations for anorexia and reports IPLOC for substance abuse care as well in the past. Pt had originally presented to [facility] ED endorsing current SI with plan to O/D on heroin. Pt was observed having difficulty struggling with words and thought processes. Pt's mood at that time was angry r/t having gained weight; pt was tearful in [facility] assessment and restrictive eating patterns were observed. Pt denied SI/HI, AH/VH during assessment. Pt noted her anxiety is high at 10/10, but wasn't able to rate anxiety. Pt expressed shame that she is unemployed at this time and stated in previous assessment that she feels like a failure. Pt was calm and cooperative during admission. Pt was talkative at times during admission. Pt denies Etoh use, but reported using heroin and cocaine as a means of losing weight or preventing weight gain. Medical issues include: fibromyalgia, chronic constipation, disorder of the thyroid gland, fusion of the sacral region of the spine, iliostomy, excessive fragmentary myoclonus, history of rectal surgery, neuropathy of the left leg, history of clitoral abscess. Pt self catheterizes up to 6 times daily. Pt is on 15 minute safety checks at this time. Hrbfs-nw-Bflap done, initial treatment plan done. Admission orders obtained. Pt is resting in room at this time.
[2021-08-05 06:00] VITALS: BP 122/76; PULSE 74; RESP 16; TEMP 36.8; O2SAT 99
[2021-08-05] MEDS: Bethanechol Chloride 25 MG TABLET PO ×3 (09:04→15:57)
[2021-08-05] MEDS: DULoxetine HCl 30 MG CAPSULE.DR 90 MG PO (09:04)
[2021-08-05] MEDS: Gabapentin 400 MG CAPSULE 800 MG PO ×2 (09:04→22:10)
[2021-08-05] MEDS: FLUoxetine HCl 20 MG CAPSULE PO (09:04)
[2021-08-05] MEDS: Ondansetron ODT 4 MG TAB.RAPDIS TRANSLINGU (09:09)
[2021-08-05] MEDS: Metoclopramide HCl 5 MG TABLET PO ×2 (12:10→17:43)
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
[2021-08-05 13:58] LABS: Magnesium 2.1 mg/dL (1.6-2.6); Phosphorus 3.7 mg/dL (2.7-4.5)
--- NOTE | 2021-08-05 14:27 | MHC.CLN ---
NUTRITION CONSULT FOR RE-FEEDING SYNDROME, ANOREXIA, AND POOR DIETARY INTAKE. MET WITH PATIENT ON UNIT. VERY RECEPTIVE TO CONVERSATION. STATED THAT RESTRICTS INTAKE AT HOME AT TIMES TO 400 KCAL, WHICH IS 2 PROTEIN BARS PER DAY. REPORTS THAT BREAKFAST IS HER BIGGEST MEAL OF THE DAY: CREAM OF RICE, 1 SLICE TOAST, YOGURT AND TEA. LUNCH AND SUPPER: SUGAR FREE PUDDING, YOGURT AND TEA. THIS PROJECT CONSTRUCTION ASSISTANT MANAGER ALERTED DINING SERVICES THAT IF KITCHEN IS OUT OF AN ITEM ORDERED, MAKE SIMILAR SUBSTITUTION. DISCUSSED LABS ASSOCIATED WITH RE-FEEDING SYNDROME. ADVISED THAT HER LABS THAT WOULD INDICATE RE-FEEDING ARE NORMAL (SODIUM, PHOSPHORUS, POTASSIUM, AND MAGNESIUM). REPORTED NO OSTOMY OUTPUT OF NOON TODAY AND NOTIFIED STAFF. RD AVAILABLE BY CONSULT NEEDED.
[2021-08-05 18:00] VITALS: BP 124/84; PULSE 65; RESP 18; TEMP 36.9
[2021-08-05] MEDS: traZODone HCL 100 MG TABLET PO (22:09)
[2021-08-05] MEDS: cloNIDine HCL 0.1 MG TABLET PO (22:09)
[2021-08-05] MEDS: diphenhydrAMINE HCL 25 MG TABLET PO (22:09)
[2021-08-05] MEDS: Zolpidem Tartrate 5 MG TABLET PO (22:09)
[2021-08-05] MEDS: Lurasidone HCl 20 MG TABLET PO (22:09)
[2021-08-05] MEDS: clonazePAM 1 MG TABLET 2 MG PO (22:10)
[2021-08-06 06:00] VITALS: BP 93/50; PULSE 59; RESP 18; TEMP 36.6; O2SAT 98
[2021-08-06] MEDS: Metoclopramide HCl 5 MG TABLET PO ×3 (07:43→17:17)
[2021-08-06] MEDS: Bethanechol Chloride 25 MG TABLET PO ×2 (07:43→14:23)
[2021-08-06] MEDS: Gabapentin 400 MG CAPSULE 800 MG PO ×2 (08:22→21:47)
[2021-08-06] MEDS: FLUoxetine HCl 20 MG CAPSULE PO (08:23)
[2021-08-06] MEDS: DULoxetine HCl 30 MG CAPSULE.DR 90 MG PO (08:23)
[2021-08-06] MEDS: Gabapentin 400 MG CAPSULE PO (12:35)
--- NOTE | 2021-08-06 13:32 | HO.PSYCHPN ---
Subjective Subjective Date of Service: 08/06/21 Reason For Visit: Ileus Interim History: Patient reports that she is having a tough day struggling with self-esteem issues. Patient was articulate in describing how thought disordered thinking occurs; part of the difficulty is that she can not do her unhealthy behaviors such as body checking on the unit. This causes her anxiety but ironically the anxiety is a sign that she is behaving in a healthy way as it indicates she is abstaining from (unhealthy) body checking behaviors. Thus, this tough day and self-esteem issues are a positive thing. Patient shared more about her history how difficult it was to GI surgery which left her feeling very isolated and unsure how to navigate social situations as ileostomy interferes with normal daily functioning. Patient shared how deeply painful it was to lose her beloved job which she feels was unfair and poorly handled. Patient says that she does not want to from anorexia. She is hopeful that in-patient [facility] treatment can help her. Patient reports that overall she is feeling that she is doing better and is more hopeful than she has been in a long time; she also says that she is eating. Mental Status Exam Mental Status Exam Narrative: A&O. Pt is anorexic; dressed in casual cloths, well groomed, good hygiene;. Good eye contact, attentive, cooperative and calm; Speech is normal rate, volume and prosody and Non-pressured and spontaneous;? No prolonged speech latency. Mood is ?...tough day,? affect congruent, intermittently tearful.? Thought content on treatment, eating disorder, trying to combat disordered thoughts; Denies SI/SIB/HI upon inquiry. Denies A/VH or delusional thought content. Thought process logical, linear and goal oriented; No known cognitive or memory impairment. Insight/ Judgment impaired but improving. Diagnostics Vital Signs (24Hr): Vital Signs - 24 hr 08/05/21 18:00 08/06/21 06:00 Temperature 98.5 F 97.8 F Pulse Rate 65 59 Respiratory Rate 18 18 Blood Pressure 124/84 93/50 L Pulse Oximetry 98 Labs Labs: Laboratory Results - last 48 hr 08/04/21 06:36 Phosphorus 3.7 Magnesium 2.1 Medications Medications Current Medications Acetaminophen (Acetaminophen 325 Mg Tablet) 650 mg PO Q6H PRN PRN Reason: Headache/Pain Mild Scale (1-3) Al Hydroxide/Mg Hydroxide (Magnesium Hydrox/Alum Hydrox 30 Ml Oral.Susp) 30 ml PO Q6H PRN PRN Reason: Heartburn/Nausea Bethanechol Chloride (Bethanechol Chloride 25 Mg Tablet) 25 mg PO TIDAC [facility] Last Admin: 08/06/21 12:37 Dose: Not Given Documented by: Clonazepam (Clonazepam 1 Mg Tablet) 2 mg PO BEDTIME [facility] Last Admin: 08/05/21 22:10 Dose: 2 mg Documented by: Clonidine HCl (Clonidine Hcl 0.1 Mg Tablet) 0.1 mg PO BEDTIME AMELIA; Protocol Last Admin: 08/05/21 22:09 Dose: 0.1 mg Documented by: Clonidine HCl (Clonidine Hcl 0.1 Mg Tablet) 0.1 mg PO BID PRN; Protocol PRN Reason: Anxiety Diphenhydramine HCl (Diphenhydramine Hcl 25 Mg Tablet) 25 mg PO BEDTIME [facility] Last Admin: 08/05/21 22:09 Dose: 25 mg Documented by: Duloxetine HCl (Duloxetine Hcl 30 Mg Capsule.) 90 mg PO DAILY [facility] Last Admin: 08/06/21 08:23 Dose: 90 mg Documented by: Fluoxetine HCl (Fluoxetine Hcl 20 Mg Capsule) 20 mg PO DAILY [facility] Last Admin: 08/06/21 08:23 Dose: 20 mg Documented by: Gabapentin (Gabapentin 400 Mg Capsule) 400 mg PO DAILY PRN PRN Reason: breakthrough neuropathic pain Last Admin: 08/06/21 12:35 Dose: 400 mg Documented by: Gabapentin (Gabapentin 400 Mg Capsule) 800 mg PO BID [facility] Last Admin: 08/06/21 08:22 Dose: 800 mg Documented by: Hydroxyzine HCl (Hydroxyzine Hcl 25 Mg Tablet) 25 mg PO BEDTIME PRN PRN Reason: Anxiety Loperamide HCl (Loperamide Hcl 2 Mg Capsule) 2 mg PO Q6H PRN PRN Reason: Loose Stool Lurasidone HCl (Lurasidone Hcl 20 Mg Tablet) 20 mg PO BEDTIME [facility] Last Admin: 08/05/21 22:09 Dose: 20 mg Documented by: Magnesium Hydroxide (Milk Of Magnesia 30 Ml Oral.Susp) 30 ml PO DAILY PRN PRN Reason: Constipation Metoclopramide HCl (Metoclopramide Hcl 5 Mg Tablet) 5 mg PO TIDAC PRN PRN Reason: nausua/vomit Last Admin: 08/06/21 12:35 Dose: 5 mg Documented by: Nicotine (Nicotine 14 Mg Patch.Td24) 14 mg TRANSDERMA DAILY PRN PRN Reason: smoking cessation Nicotine Polacrilex (Nicotine Polacrilex 2 Mg Gum) 4 mg BUCCAL Q2H PRN PRN Reason: Nicotine Cravings Trazodone HCl (Trazodone Hcl 100 Mg Tablet) 100 mg PO BEDTIME [facility]EL[facility] Last Admin: 08/05/21 22:09 Dose: 100 mg Documented by: Zolpidem Tartrate (Zolpidem Tartrate 5 Mg Tablet) 5 mg PO BEDTIME [facility] Last Admin: 08/05/21 22:09 Dose: 5 mg Documented by: Allergies Allergies Allergy/AdvReac Type Severity Reaction Status Date / Time buspirone [From BuSpar] Allergy Swelling Verified 07/23/21 19:02 chlorpromazine Allergy Anaphylaxis Verified 07/23/21 19:02 [From Thorazine] lamotrigine [From Lamictal] Allergy Rash Verified 07/23/21 19:02 Sulfa (Sulfonamide Allergy Rash Verified 07/23/21 19:02 Antibiotics) linaclotide [From Linzess] AdvReac Abdominal Verified 07/23/21 19:02 Pain quetiapine [From Seroquel] AdvReac bad side Verified 07/23/21 19:02 effects' topiramate AdvReac Fogginess Verified 07/23/21 19:02 ziprasidone [From Geodon] AdvReac psychosis Verified 07/23/21 19:02 Assessment & Plan Assessment & Plan (1) Anorexia nervosa, restricting type: Status: Acute Code(s): F50.01 - Anorexia nervosa, restricting type (2) PTSD (post-traumatic stress disorder): Status: Acute Code(s): F43.10 - Post-traumatic stress disorder, unspecified (3) Major depressive disorder, recurrent, moderate: Status: Acute Code(s): F33.1 - Major depressive disorder, recurrent, moderate (4) Opioid abuse: Status: Acute Code(s): F11.10 - Opioid abuse, uncomplicated (5) Cocaine use disorder: Status: Acute Code(s): F14.10 - Cocaine abuse, uncomplicated (6) Hx of total colectomy: Status: Acute Code(s): Z90.49 - Acquired absence of other specified parts of digestive tract (7) Ileus: Status: Acute Code(s): K56.7 - Ileus, unspecified Plan ?Zuleyma is a 35 y.o. Female who carries a dx of PTSD, likely BPD, anorexia nervosa, polysubstance abuse, and MDD, recurrent episode. She is returning to from the hospital floor after being transferred for a bout of what seems to have been ileus, now medically cleared. Patient returns due to continued intense struggles with eating disorder thoughts, anxiety and need for further medication management. Patient is open to [place] inpatient admission for eating disorder. Denies SI/ Supervisor Transcribing Operators spoke with hospitalist Dr. Romero who diagnosed ileus which he reports is not resolved; does not think it was due to naltrexone but is not sure what the trigger was. Informed sql report writer that patient has a history of motility problems and that patient should follow-up with her outpatient surgeon to do a motility test. All narcotics discontinued; some narcotic seeking behaviorHI. Initially Patient was admitted to and was no longer suicidal and forthcoming during interviews, benefiting from medication management. -Started on clonidine 0.1 mg TID PRN for sx of nightmares, hyperarousal, and flashbacks which was helpful -P.r.n. Haldol was started however patient got acute dystonic reaction which was treated with Cogentin and resolved; Haldol discontinued -Patient felt she had done best on Prozac and Cymbalta combination and accepted risks of these combined medications including serotonin syndrome feeling that the benefit far outweighed the risks. She reports having tolerated this combination for about 5 years during which time she did overall well (patient was also trialed on Remeron however it was not helpful with insomnia and the idea of potential weight gain was bothersome) -Patient was also started on Latuda help with mood stability and patient reports it was well tolerated and helped her sleep. -Patient was doing overall well and was headed towards discharge. -She got on naltrexone to help her with sobriety. 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 2/2 anxious; worried about eating disorder thoughts overwhelming her; has already had medical complication due to eating disorder issues. Patient does not want to get a naltrexone. She said that she is frequently hospitalized and requires pain medication making it to anxiety provoking to get on naltrexone 2/3 working hard to combat eating disordered thoughts; overall feels mood and anxiety have improved; denies SI. Hopeful to get in to [place] inpatient unit PLAN: CV q15 min checks Social work working to see if [place] inpatient eating disorder unit is an option -continue Lurasidone 20mg qhs -continue Prozac 20 mg and Cymbalta 90 mg since she was stable on this for years; she feels it is worth the risk of potential side effects including serotonin syndrome which she has never had -continue ambien 5mg qhs; patient reports she has been on Ambien 10 mg for 7 years on which she is slept well; she would like to have Ambien 5 mg scheduled at bedtime in addition to clonazepam 2 mg -continue clonazepam 2 mg qhs; patient reports being on clonazepam 2 mg for 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 Reason for contiued inpatient stay Substantial Risk for: stable for discharge
[2021-08-06 18:40] VITALS: BP 139/88; PULSE 80; RESP 16; TEMP 36.7; O2SAT 100
--- NOTE | 2021-08-06 19:38 | MHC.RECOVSUP ---
? Reason for consult: Recovery Support o ? ? ?Current location: ? o ? ? ?Identified substance use concern: Heroine ? - Support ? ?Intervention: o Community resources provided o Harm reduction discussion ? Additional information:?I was able to connect with PT and review harm reduction strategies, community resources for Smart Recovery and coping skills. PT was engaged and shared her experience. I was able to support and encourage PT to stay in the action stages of her recovery.
[2021-08-06] MEDS: cloNIDine HCL 0.1 MG TABLET PO (19:49)
[2021-08-06] MEDS: clonazePAM 1 MG TABLET 2 MG PO (21:47)
[2021-08-06] MEDS: diphenhydrAMINE HCL 25 MG TABLET PO (21:47)
[2021-08-06] MEDS: traZODone HCL 100 MG TABLET PO (21:47)
[2021-08-06] MEDS: Zolpidem Tartrate 5 MG TABLET PO (21:47)
[2021-08-06] MEDS: Lurasidone HCl 20 MG TABLET PO (21:47)
[2021-08-06] MEDS: hydrOXYzine HCL 25 MG TABLET PO (21:53)
[2021-08-07 05:58] VITALS: BP 114/67; PULSE 75; TEMP 36.6; O2SAT 99
[2021-08-07] MEDS: Metoclopramide HCl 5 MG TABLET PO ×3 (08:23→16:17)
[2021-08-07] MEDS: DULoxetine HCl 30 MG CAPSULE.DR 90 MG PO (08:25)
[2021-08-07] MEDS: FLUoxetine HCl 20 MG CAPSULE PO (08:25)
[2021-08-07] MEDS: Gabapentin 400 MG CAPSULE 800 MG PO ×2 (08:25→21:59)
[2021-08-07] MEDS: Bethanechol Chloride 25 MG TABLET PO ×3 (08:25→16:17)
--- NOTE | 2021-08-07 12:31 | P.PNPSI_ITS ---
Subjective Subjective Date of Service: 08/07/21 Reason For Visit: Ileus Interim History: Reports This is a challenging day for her. She says her roommate has disclosed that she herself has an eating disorder the knowledge of which patient finds very triggering and in effort too avoid roommate she skipped lunch today. Roommate also vomited the other day after a meal which continues to trigger patient. She reports trouble sleeping and has had nightmares past few nights; the nightmares are anxiety-related and not trauma induced and therefore have not affected her day. HoweverPoor sleep is making it harder for her to engage in healthy coping skills; patient has been working on trying to lower her anxiety by reading, watching TV or talking to others. She asks however for increase in lower acid own to which typewriter repairer agrees. She asked for continued help with breakthrough anxiety and agreed to adding gabapentin to which she has tried in the past Mental Status Exam Mental Status Exam Narrative: A&O. Pt is anorexic; dressed in casual cloths, well groomed, good hygiene;. Good eye contact, attentive, cooperative and calm; Speech is normal rate, volume and prosody and Non-pressured and spontaneous;? No prolonged speech latency. Mood is ?...tough day,? affect congruent, intermittently tearful.? Thought content on treatment, eating disorder, trying to combat disordered thoughts; Denies SI/SIB/HI upon inquiry. Denies A/VH or delusional thought content. Thought process logical, linear and goal oriented; No known cognitive or memory impairment. Insight/ Judgment impaired but improving. Diagnostics Vital Signs (24Hr): Vital Signs - 24 hr 08/06/21 18:40 08/07/21 05:58 Temperature 98.1 F 97.9 F Pulse Rate 80 75 Respiratory Rate 16 Blood Pressure 139/88 114/67 Pulse Oximetry 100 99 Labs Labs: Laboratory Results - last 48 hr 08/04/21 06:36 Phosphorus 3.7 Magnesium 2.1 Medications Medications Current Medications Acetaminophen (Acetaminophen 325 Mg Tablet) 650 mg PO Q6H PRN PRN Reason: Headache/Pain Mild Scale (1-3) Al Hydroxide/Mg Hydroxide (Magnesium Hydrox/Alum Hydrox 30 Ml Oral.Susp) 30 ml PO Q6H PRN PRN Reason: Heartburn/Nausea Bethanechol Chloride (Bethanechol Chloride 25 Mg Tablet) 25 mg PO TIDAC [facility] Last Admin: 08/07/21 11:44 Dose: 25 mg Documented by: Clonazepam (Clonazepam 1 Mg Tablet) 2 mg PO BEDTIME [facility] Last Admin: 08/06/21 21:47 Dose: 2 mg Documented by: Clonidine HCl (Clonidine Hcl 0.1 Mg Tablet) 0.1 mg PO BEDTIME [facility]; Protocol Last Admin: 08/06/21 19:49 Dose: 0.1 mg Documented by: Clonidine HCl (Clonidine Hcl 0.1 Mg Tablet) 0.1 mg PO BID PRN; Protocol PRN Reason: Anxiety Diphenhydramine HCl (Diphenhydramine Hcl 25 Mg Tablet) 25 mg PO BEDTIME [facility] Last Admin: 08/06/21 21:47 Dose: 25 mg Documented by: Duloxetine HCl (Duloxetine Hcl 30 Mg Capsule.Dr) 90 mg PO DAILY [facility] Last Admin: 08/07/21 08:25 Dose: 90 mg Documented by: Fluoxetine HCl (Fluoxetine Hcl 20 Mg Capsule) 20 mg PO DAILY [facility] Last Admin: 08/07/21 08:25 Dose: 20 mg Documented by: Gabapentin (Gabapentin 400 Mg Capsule) 400 mg PO DAILY PRN PRN Reason: breakthrough neuropathic pain Last Admin: 08/06/21 12:35 Dose: 400 mg Documented by: Gabapentin (Gabapentin 400 Mg Capsule) 800 mg PO BID [facility] Last Admin: 08/07/21 08:25 Dose: 800 mg Documented by: Hydroxyzine HCl (Hydroxyzine Hcl 25 Mg Tablet) 25 mg PO BEDTIME PRN PRN Reason: Anxiety Last Admin: 08/06/21 21:53 Dose: 25 mg Documented by: Loperamide HCl (Loperamide Hcl 2 Mg Capsule) 2 mg PO Q6H PRN PRN Reason: Loose Stool Lurasidone HCl (Lurasidone Hcl 40 Mg Tablet) 40 mg PO BEDTIME [facility] Magnesium Hydroxide (Milk Of Magnesia 30 Ml Oral.Susp) 30 ml PO DAILY PRN PRN Reason: Constipation Metoclopramide HCl (Metoclopramide Hcl 5 Mg Tablet) 5 mg PO TIDAC PRN PRN Reason: nausua/vomit Last Admin: 08/07/21 11:44 Dose: 5 mg Documented by: Nicotine (Nicotine 14 Mg Patch.Td24) 14 mg TRANSDERMA DAILY PRN PRN Reason: smoking cessation Nicotine Polacrilex (Nicotine Polacrilex 2 Mg Gum) 4 mg BUCCAL Q2H PRN PRN Reason: Nicotine Cravings Trazodone HCl (Trazodone Hcl 100 Mg Tablet) 100 mg PO BEDTIME [facility] Last Admin: 08/06/21 21:47 Dose: 100 mg Documented by: Zolpidem Tartrate (Zolpidem Tartrate 5 Mg Tablet) 5 mg PO BEDTIME [facility] Last Admin: 08/06/21 21:47 Dose: 5 mg Documented by: Allergies Allergies Allergy/AdvReac Type Severity Reaction Status Date / Time buspirone [From Allergy Swelling Verified 07/23/21 19:02 BuSpar] chlorpromazine Allergy Anaphylaxis Verified 07/23/21 19:02 [From Thorazine] lamotrigine [From Allergy Rash Verified 07/23/21 19:02 Lamictal] Sulfa (Sulfonamide Allergy Rash Verified 07/23/21 19:02 Antibiotics) linaclotide [From AdvReac Abdominal Verified 07/23/21 19:02 Linzess] Pain quetiapine [From AdvReac bad side Verified 07/23/21 19:02 Seroquel] effects' topiramate AdvReac Fogginess Verified 07/23/21 19:02 ziprasidone [From AdvReac psychosis Verified 07/23/21 19:02 Geodon] Assessment & Plan Assessment & Plan (1) Anorexia nervosa, restricting type: Status: Acute Code(s): F50.01 - Anorexia nervosa, restricting type (2) PTSD (post-traumatic stress disorder): Status: Acute Code(s): F43.10 - Post-traumatic stress disorder, unspecified (3) Major depressive disorder, recurrent, moderate: Status: Acute Code(s): F33.1 - Major depressive disorder, recurrent, moderate (4) Opioid abuse: Status: Acute Code(s): F11.10 - Opioid abuse, uncomplicated (5) Cocaine use disorder: Status: Acute Code(s): F14.10 - Cocaine abuse, uncomplicated (6) Hx of total colectomy: Status: Acute Code(s): Z90.49 - Acquired absence of other specified parts of digestive tract (7) Ileus: Status: Acute Code(s): K56.7 - Ileus, unspecified Plan ?Zuleyma is a 35 y.o. Female who carries a dx of PTSD, likely BPD, anorexia nervosa, polysubstance abuse, and MDD, recurrent episode. She is returning to from the hospital floor after being transferred for a bout of what seems to have been ileus, now medically cleared. Patient returns due to continued intense struggles with eating disorder thoughts, anxiety and need for further medication management. Patient is open to [facility] inpatient admission for eating disorder. Denies SI/ Field Support Engineer spoke with hospitalist Dr. Romero who diagnosed ileus which he reports is not resolved; does not think it was due to naltrexone but is not sure what the trigger was. Informed typewriter repairer that patient has a history of motility problems and that patient should follow-up with her [facility] surgeon to do a motility test. All narcotics discontinued; some narcotic seeking behaviorHI. Initially Patient was admitted to and was no longer suicidal and forthcoming during interviews, benefiting from medication management. -Started on clonidine 0.1 mg TID PRN for sx of nightmares, hyperarousal, and flashbacks which was helpful -P.r.n. Haldol was started however patient got acute dystonic reaction which was treated with Cogentin and resolved; Haldol discontinued -Patient felt she had done best on Prozac and Cymbalta combination and accepted risks of these combined medications including serotonin syndrome feeling that the benefit far outweighed the risks. She reports having tolerated this combination for about 5 years during which time she did overall well (patient was also trialed on Remeron however it was not helpful with insomnia and the idea of potential weight gain was bothersome) -Patient was also started on Latuda help with mood stability and patient reports it was well tolerated and helped her sleep. -Patient was doing overall well and was headed towards discharge. -She got on naltrexone to help her with sobriety. 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 2/ anxious; worried about eating disorder thoughts overwhelming her; has already had medical complication due to eating disorder issues. Patient does not want to get a naltrexone. She said that she is frequently hospitalized and requires pain medication making it to anxiety provoking to get on naltrexone 2/3 working hard to combat eating disordered thoughts; overall feels mood and anxiety have improved; denies SI. Hopeful to get in to [facility] inpatient unit 08/07 increased Latuda; room change to avoid roommate who disclosed eating disorder PLAN: CV q15 min checks Social work working to see if [facility] inpatient eating disorder unit is an option -INCREASED TO Lurasidone 40mg qhs (on 08/07) ADDED Gabapentin 300 mg t.i.d. 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 Reason for contiued inpatient stay Substantial Risk for: stable for discharge
[2021-08-07] MEDS: hydrOXYzine HCL 25 MG TABLET PO (14:38)
[2021-08-07 18:00] VITALS: BP 137/76; PULSE 80; RESP 16; TEMP 37.2
[2021-08-07] MEDS: diphenhydrAMINE HCL 25 MG TABLET PO (21:59)
[2021-08-07] MEDS: Lurasidone HCl 40 MG TABLET PO (21:59)
[2021-08-07] MEDS: Zolpidem Tartrate 5 MG TABLET PO (22:01)
[2021-08-07] MEDS: traZODone HCL 100 MG TABLET PO (22:01)
[2021-08-07] MEDS: clonazePAM 1 MG TABLET 2 MG PO (22:02)
[2021-08-07] MEDS: cloNIDine HCL 0.1 MG TABLET PO (22:05)
--- NOTE | 2021-08-08 02:58 | HO.PSYCHPN ---
Subjective Subjective Date of Service: 08/08/21 Reason For Visit: Ileus Interim History: Patient seen and discussed with team. Patient evaluated this morning and upon interview she is tearful, says I dont want to go, im so scared, referring to [facility] inpatient. Says she has had a terrible headache, attributes this to increase in latuda. Says she wants to lose weight before she goes to [facility] inpatient, Im not that skinny. Now contemplating going home and participating in [facility]. Says I miss my hair watershed tender and a comfortable bed. Discussed her anorexia and the sequelae and pt states I dayne assumed I would from it. Doesnt want med changes. In the milieu, patient is safe and appropriate in behavior. Denies SI/SIB/HI upon inquiry. Denies irritability or assaultive ideation. Says she feels safe. Medication Compliance: Yes Side effects from medications: No Attending Groups: Yes Review of Systems Acute medical concerns: No Medical Review of Systems: unchanged Mental Status Exam Mental Status Exam Narrative: A&O. Pt is anorexic; dressed in casual cloths, well groomed, good hygiene;. Good eye contact, attentive, cooperative and calm; Speech is normal rate, volume and prosody and Non-pressured and spontaneous;? No prolonged speech latency. Mood is ?overwhelmed,? affect congruent, tearful.? Thought content on treatment, eating disorder, trying to combat disordered thoughts; Denies SI/SIB/HI upon inquiry. Denies A/VH or delusional thought content. Thought process logical, linear and goal oriented; No known cognitive or memory impairment. Insight/ Judgment impaired but improving. Diagnostics Vital Signs (24Hr): Vital Signs - 24 hr 08/09/21 05:48 08/09/21 08:14 08/09/21 17:15 Temperature 79.3 F L 97.5 F 97.9 F Pulse Rate 72 64 77 Respiratory Rate 16 18 16 Blood Pressure 114/74 106/69 121/78 Pulse Oximetry 98 99 08/09/21 21:10 Temperature Pulse Rate 84 Respiratory Rate Blood Pressure 118/80 Pulse Oximetry Medications Medications Current Medications Acetaminophen (Acetaminophen 325 Mg Tablet) 650 mg PO Q6H PRN PRN Reason: Headache/Pain Mild Scale (1-3) Last Admin: 08/08/21 09:08 Dose: 650 mg Documented by: Al Hydroxide/Mg Hydroxide (Magnesium Hydrox/Alum Hydrox 30 Ml Oral.Susp) 30 ml PO Q6H PRN PRN Reason: Heartburn/Nausea Bethanechol Chloride (Bethanechol Chloride 25 Mg Tablet) 25 mg PO TIDAC [facility] Last Admin: 08/09/21 17:06 Dose: 25 mg Documented by: Clonazepam (Clonazepam 1 Mg Tablet) 2 mg PO BEDTIME [facility] Last Admin: 08/09/21 21:06 Dose: 2 mg Documented by: Clonidine HCl (Clonidine Hcl 0.1 Mg Tablet) 0.1 mg PO BEDTIME [facility]; Protocol Last Admin: 08/09/21 21:06 Dose: 0.1 mg Documented by: Diphenhydramine HCl (Diphenhydramine Hcl 25 Mg Tablet) 25 mg PO BEDTIME [facility] Last Admin: 08/09/21 21:05 Dose: 25 mg Documented by: Duloxetine HCl (Duloxetine Hcl 30 Mg Capsule.Dr) 90 mg PO DAILY [facility] Last Admin: 08/09/21 08:09 Dose: 90 mg Documented by: Fluoxetine HCl (Fluoxetine Hcl 20 Mg Capsule) 20 mg PO DAILY [facility] Last Admin: 08/09/21 08:10 Dose: 20 mg Documented by: Gabapentin (Gabapentin 400 Mg Capsule) 400 mg PO DAILY PRN PRN Reason: breakthrough neuropathic pain Last Admin: 08/09/21 14:15 Dose: 400 mg Documented by: Gabapentin (Gabapentin 400 Mg Capsule) 800 mg PO BID [facility] Last Admin: 08/09/21 21:06 Dose: 800 mg Documented by: Hydroxyzine HCl (Hydroxyzine Hcl 25 Mg Tablet) 25 mg PO QID PRN PRN Reason: Anxiety Last Admin: 08/08/21 14:33 Dose: 25 mg Documented by: Loperamide HCl (Loperamide Hcl 2 Mg Capsule) 2 mg PO Q6H PRN PRN Reason: Loose Stool Lurasidone HCl (Lurasidone Hcl 40 Mg Tablet) 40 mg PO BEDTIME [facility] Last Admin: 08/09/21 21:05 Dose: 40 mg Documented by: Magnesium Hydroxide (Milk Of Magnesia 30 Ml Oral.Susp) 30 ml PO DAILY PRN PRN Reason: Constipation Metoclopramide HCl (Metoclopramide Hcl 5 Mg Tablet) 5 mg PO TIDAC [facility] Last Admin: 08/09/21 17:06 Dose: 5 mg Documented by: Naproxen (Naproxen 500 Mg Tablet) 500 mg PO Q12H PRN PRN Reason: migraine Last Admin: 08/09/21 07:04 Dose: 500 mg Documented by: Nicotine (Nicotine 14 Mg Patch.Td24) 14 mg TRANSDERMA DAILY PRN PRN Reason: smoking cessation Nicotine Polacrilex (Nicotine Polacrilex 2 Mg Gum) 4 mg BUCCAL Q2H PRN PRN Reason: Nicotine Cravings Trazodone HCl (Trazodone Hcl 100 Mg Tablet) 100 mg PO BEDTIME [facility] Last Admin: 08/09/21 21:05 Dose: 100 mg Documented by: Zolpidem Tartrate (Zolpidem Tartrate 5 Mg Tablet) 5 mg PO BEDTIME [facility] Last Admin: 08/09/21 21:06 Dose: 5 mg Documented by: Allergies Allergies Allergy/AdvReac Type Severity Reaction Status Date / Time buspirone [From BuSpar] Allergy Swelling Verified 07/23/21 19:02 chlorpromazine Allergy Anaphylaxis Verified 07/23/21 19:02 [From Thorazine] lamotrigine [From Lamictal] Allergy Rash Verified 07/23/21 19:02 Sulfa (Sulfonamide Allergy Rash Verified 07/23/21 19:02 Antibiotics) linaclotide [From Linzess] AdvReac Abdominal Verified 07/23/21 19:02 Pain quetiapine [From Seroquel] AdvReac bad side Verified 07/23/21 19:02 effects' topiramate AdvReac Fogginess Verified 07/23/21 19:02 ziprasidone [From Geodon] AdvReac psychosis Verified 07/23/21 19:02 Assessment & Plan Assessment & Plan (1) Anorexia nervosa, restricting type: Status: Acute Code(s): F50.01 - Anorexia nervosa, restricting type (2) PTSD (post-traumatic stress disorder): Status: Acute Code(s): F43.10 - Post-traumatic stress disorder, unspecified (3) Major depressive disorder, recurrent, moderate: Status: Acute Code(s): F33.1 - Major depressive disorder, recurrent, moderate (4) Opioid abuse: Status: Acute Code(s): F11.10 - Opioid abuse, uncomplicated (5) Cocaine use disorder: Status: Acute Code(s): F14.10 - Cocaine abuse, uncomplicated (6) Ileus: Status: Resolved Code(s): K56.7 - Ileus, unspecified Plan ?Zuleyma is a 35 y.o. Female who carries a dx of PTSD, likely BPD, anorexia nervosa, polysubstance abuse, and MDD, recurrent episode. She is returning to from the hospital floor after being transferred for a bout of what seems to have been ileus, now medically cleared. Patient returns due to continued intense struggles with eating disorder thoughts, anxiety and need for further medication management. Patient is open to [facility] inpatient admission for eating disorder. Denies SI/ Diamond Expert spoke with hospitalist Dr. Romero who diagnosed ileus which he reports is not resolved; does not think it was due to naltrexone but is not sure what the trigger was. Informed sheet writer that patient has a history of motility problems and that patient should follow-up with her outpatient surgeon to do a motility test. All narcotics discontinued; some narcotic seeking behaviorHI. Initially Patient was admitted to and was no longer suicidal and forthcoming during interviews, benefiting from medication management. -Started on clonidine 0.1 mg TID PRN for sx of nightmares, hyperarousal, and flashbacks which was helpful -P.r.n. Haldol was started however patient got acute dystonic reaction which was treated with Cogentin and resolved; Haldol discontinued -Patient felt she had done best on Prozac and Cymbalta combination and accepted risks of these combined medications including serotonin syndrome feeling that the benefit far outweighed the risks. She reports having tolerated this combination for about 5 years during which time she did overall well (patient was also trialed on Remeron however it was not helpful with insomnia and the idea of potential weight gain was bothersome) -Patient was also started on Latuda help with mood stability and patient reports it was well tolerated and helped her sleep. -Patient was doing overall well and was headed towards discharge. -She got on naltrexone to help her with sobriety. 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 2/ anxious; worried about eating disorder thoughts overwhelming her; has already had medical complication due to eating disorder issues. Patient does not want to get a naltrexone. She said that she is frequently hospitalized and requires pain medication making it to anxiety provoking to get on naltrexone 2/3 working hard to combat eating disordered thoughts; overall feels mood and anxiety have improved; denies SI. Hopeful to get in to [facility] inpatient unit 08/07 increased Latuda; room change to avoid roommate who disclosed eating disorder 08/08: reports headache on increased latuda, otherwise tolerating dose increase and does not want med changes. Has been struggling with disordered eating thoughts however has been eating. PLAN: CV q15 min checks Social work working to see if [facility] eating disorder unit is an option -INCREASED TO Lurasidone 40mg qhs (on 08/07) ADDED Gabapentin 300 mg t.i.d. 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 Patient educated on: medication risk/benefits Informed Consent: understands Reason for contiued inpatient stay Substantial Risk for: harm to self, rapid decompensation and med/psych decompensation
[2021-08-08] MEDS: Metoclopramide HCl 5 MG TABLET PO ×3 (08:11→17:02)
[2021-08-08] MEDS: DULoxetine HCl 30 MG CAPSULE.DR 90 MG PO (08:11)
[2021-08-08] MEDS: Bethanechol Chloride 25 MG TABLET PO ×3 (08:11→16:05)
[2021-08-08] MEDS: FLUoxetine HCl 20 MG CAPSULE PO (08:11)
[2021-08-08] MEDS: Gabapentin 400 MG CAPSULE 800 MG PO ×2 (08:12→21:19)
[2021-08-08 08:23] VITALS: BP 125/90; PULSE 83; RESP 16; TEMP 36.4; O2SAT 97
[2021-08-08] MEDS: Acetaminophen 325 MG TABLET 650 MG PO (09:08)
[2021-08-08] MEDS: hydrOXYzine HCL 25 MG TABLET PO (14:33)
[2021-08-08] MEDS: NaPROXEN 500 MG TABLET PO (16:05)
[2021-08-08 17:30] VITALS: BP 112/75; PULSE 78; RESP 18; TEMP 36.5; O2SAT 100
[2021-08-08] MEDS: clonazePAM 1 MG TABLET 2 MG PO (21:17)
[2021-08-08] MEDS: cloNIDine HCL 0.1 MG TABLET PO (21:17)
[2021-08-08] MEDS: traZODone HCL 100 MG TABLET PO (21:17)
[2021-08-08] MEDS: Zolpidem Tartrate 5 MG TABLET PO (21:19)
[2021-08-08] MEDS: diphenhydrAMINE HCL 25 MG TABLET PO (21:19)
[2021-08-08] MEDS: Lurasidone HCl 40 MG TABLET PO (21:19)
[2021-08-08 21:24] VITALS: BP 119/67; PULSE 51
[2021-08-09 05:48] VITALS: BP 114/74; PULSE 72; RESP 16; TEMP 26.3; O2SAT 98
[2021-08-09] MEDS: NaPROXEN 500 MG TABLET PO (07:04)
[2021-08-09] MEDS: Gabapentin 400 MG CAPSULE 800 MG PO ×2 (08:09→21:06)
[2021-08-09] MEDS: Metoclopramide HCl 5 MG TABLET PO ×3 (08:09→17:06)
[2021-08-09] MEDS: Bethanechol Chloride 25 MG TABLET PO ×3 (08:09→17:06)
[2021-08-09] MEDS: DULoxetine HCl 30 MG CAPSULE.DR 90 MG PO (08:09)
[2021-08-09] MEDS: FLUoxetine HCl 20 MG CAPSULE PO (08:10)
[2021-08-09 08:14] VITALS: BP 106/69; PULSE 64; RESP 18; TEMP 36.4
[2021-08-09] MEDS: Gabapentin 400 MG CAPSULE PO (14:15)
--- NOTE | 2021-08-09 15:37 | P.PNPSI_ITS ---
Subjective Subjective Date of Service: 08/09/21 Reason For Visit: Ileus Interim History: Patient seen and discussed with team. Patient evaluated this morning and upon interview she reports I dont know if [facility] is gonna be the best place. Says she is anxious, feels it will be triggering because there will be people thinner than her there. Has psychomotor agitation, legs shaking. Pt reports she feels tired of being in the hospital, finds it hard to take care of my ostomy here. She had a visitor today, her bf. Says she discussed dispo with him, now thinking about going to [facility] for PHP and then [facility] for OP. In the milieu, patient is safe and appropriate in behavior, somewhat isolative today, pacing. Denies SI/SIB/HI upon inquiry. Denies irritability or assaultive ideation. Says she feels safe. Medication Compliance: Yes Side effects from medications: No Attending Groups: Yes Review of Systems Acute medical concerns: No Medical Review of Systems: unchanged Mental Status Exam Mental Status Exam Narrative: A&O. Pt is anorexic; dressed in casual cloths, well groomed, good hygiene;. Good eye contact, attentive, cooperative and calm; Speech is normal rate, volume and prosody and Non-pressured and spontaneous;? No prolonged speech latency. Mood is ?anxious,? affect congruent.? Thought content on treatment, eating disorder, trying to combat disordered thoughts; Denies SI/SIB/HI upon inquiry. Denies A/VH or delusional thought content. Thought process logical, linear and goal oriented; No known cognitive or memory impairment. Insight/ Judgment impaired but improving. Diagnostics Vital Signs (24Hr): Vital Signs - 24 hr 08/08/21 17:30 08/08/21 21:24 08/09/21 05:48 Temperature 97.7 F 79.3 F L Pulse Rate 78 51 72 Respiratory Rate 18 16 Blood Pressure 112/75 119/67 114/74 Pulse Oximetry 100 98 08/09/21 08:14 Temperature 97.5 F Pulse Rate 64 Respiratory Rate 18 Blood Pressure 106/69 Pulse Oximetry Medications Medications Current Medications Acetaminophen (Acetaminophen 325 Mg Tablet) 650 mg PO Q6H PRN PRN Reason: Headache/Pain Mild Scale (1-3) Last Admin: 08/08/21 09:08 Dose: 650 mg Documented by: Al Hydroxide/Mg Hydroxide (Magnesium Hydrox/Alum Hydrox 30 Ml Oral.Susp) 30 ml PO Q6H PRN PRN Reason: Heartburn/Nausea Bethanechol Chloride (Bethanechol Chloride 25 Mg Tablet) 25 mg PO TIDAC [facility] Last Admin: 08/09/21 12:10 Dose: 25 mg Documented by: Clonazepam (Clonazepam 1 Mg Tablet) 2 mg PO BEDTIME [facility] Last Admin: 08/08/21 21:17 Dose: 2 mg Documented by: Clonidine HCl (Clonidine Hcl 0.1 Mg Tablet) 0.1 mg PO BEDTIME [facility]; Protocol Last Admin: 08/08/21 21:17 Dose: 0.1 mg Documented by: Diphenhydramine HCl (Diphenhydramine Hcl 25 Mg Tablet) 25 mg PO BEDTIME [facility] Last Admin: 08/08/21 21:19 Dose: 25 mg Documented by: Duloxetine HCl (Duloxetine Hcl 30 Mg Capsule.Dr) 90 mg PO DAILY [facility] Last Admin: 08/09/21 08:09 Dose: 90 mg Documented by: Fluoxetine HCl (Fluoxetine Hcl 20 Mg Capsule) 20 mg PO DAILY [facility] Last Admin: 08/09/21 08:10 Dose: 20 mg Documented by: Gabapentin (Gabapentin 400 Mg Capsule) 400 mg PO DAILY PRN PRN Reason: breakthrough neuropathic pain Last Admin: 08/09/21 14:15 Dose: 400 mg Documented by: Gabapentin (Gabapentin 400 Mg Capsule) 800 mg PO BID [facility] Last Admin: 08/09/21 08:09 Dose: 800 mg Documented by: Hydroxyzine HCl (Hydroxyzine Hcl 25 Mg Tablet) 25 mg PO QID PRN PRN Reason: Anxiety Last Admin: 08/08/21 14:33 Dose: 25 mg Documented by: Loperamide HCl (Loperamide Hcl 2 Mg Capsule) 2 mg PO Q6H PRN PRN Reason: Loose Stool Lurasidone HCl (Lurasidone Hcl 40 Mg Tablet) 40 mg PO BEDTIME [facility] Last Admin: 08/08/21 21:19 Dose: 40 mg Documented by: Magnesium Hydroxide (Milk Of Magnesia 30 Ml Oral.Susp) 30 ml PO DAILY PRN PRN Reason: Constipation Metoclopramide HCl (Metoclopramide Hcl 5 Mg Tablet) 5 mg PO TIDAC [facility] Last Admin: 08/09/21 12:10 Dose: 5 mg Documented by: Naproxen (Naproxen 500 Mg Tablet) 500 mg PO Q12H PRN PRN Reason: migraine Last Admin: 08/09/21 07:04 Dose: 500 mg Documented by: Nicotine (Nicotine 14 Mg Patch.Td24) 14 mg TRANSDERMA DAILY PRN PRN Reason: smoking cessation Nicotine Polacrilex (Nicotine Polacrilex 2 Mg Gum) 4 mg BUCCAL Q2H PRN PRN Reason: Nicotine Cravings Trazodone HCl (Trazodone Hcl 100 Mg Tablet) 100 mg PO BEDTIME [facility] Last Admin: 08/08/21 21:17 Dose: 100 mg Documented by: Zolpidem Tartrate (Zolpidem Tartrate 5 Mg Tablet) 5 mg PO BEDTIME [facility] Last Admin: 08/08/21 21:19 Dose: 5 mg Documented by: Allergies Allergies Allergy/AdvReac Type Severity Reaction Status Date / Time buspirone [From Allergy Swelling Verified 07/23/21 19:02 BuSpar] chlorpromazine Allergy Anaphylaxis Verified 07/23/21 19:02 [From Thorazine] lamotrigine [From Allergy Rash Verified 07/23/21 19:02 Lamictal] Sulfa (Sulfonamide Allergy Rash Verified 07/23/21 19:02 Antibiotics) linaclotide [From AdvReac Abdominal Verified 07/23/21 19:02 Linzess] Pain quetiapine [From AdvReac bad side Verified 07/23/21 19:02 Seroquel] effects' topiramate AdvReac Fogginess Verified 07/23/21 19:02 ziprasidone [From AdvReac psychosis Verified 07/23/21 19:02 Geodon] Assessment & Plan Assessment & Plan (1) Anorexia nervosa, restricting type: Status: Acute Code(s): F50.01 - Anorexia nervosa, restricting type (2) PTSD (post-traumatic stress disorder): Status: Acute Code(s): F43.10 - Post-traumatic stress disorder, unspecified (3) Major depressive disorder, recurrent, moderate: Status: Acute Code(s): F33.1 - Major depressive disorder, recurrent, moderate (4) Opioid abuse: Status: Acute Code(s): F11.10 - Opioid abuse, uncomplicated (5) Cocaine use disorder: Status: Acute Code(s): F14.10 - Cocaine abuse, uncomplicated (6) Ileus: Status: Resolved Code(s): K56.7 - Ileus, unspecified Plan ?Zuleyma is a 35 y.o. Female who carries a dx of PTSD, likely BPD, anorexia nervosa, polysubstance abuse, and MDD, recurrent episode. She is returning to from the hospital floor after being transferred for a bout of what seems to have been ileus, now medically cleared. Patient returns due to continued intense struggles with eating disorder thoughts, anxiety and need for further medication management. Patient is open to [facility] inpatient admission for eating disorder. Denies SI/ Field Gauger spoke with hospitalist Dr. Romero who diagnosed ileus which he reports is not resolved; does not think it was due to naltrexone but is not sure what the trigger was. Informed bond underwriter that patient has a history of motility problems and that patient should follow-up with her outpatient surgeon to do a motility test. All narcotics discontinued; some narcotic seeking behaviorHI. Initially Patient was admitted to and was no longer suicidal and forthcoming during interviews, benefiting from medication management. -Started on clonidine 0.1 mg TID PRN for sx of nightmares, hyperarousal, and flashbacks which was helpful -P.r.n. Haldol was started however patient got acute dystonic reaction which was treated with Cogentin and resolved; Haldol discontinued -Patient felt she had done best on Prozac and Cymbalta combination and accepted risks of these combined medications including serotonin syndrome feeling that the benefit far outweighed the risks. She reports having tolerated this combination for about 5 years during which time she did overall well (patient was also trialed on Remeron however it was not helpful with insomnia and the idea of potential weight gain was bothersome) -Patient was also started on Latuda help with mood stability and patient reports it was well tolerated and helped her sleep. -Patient was doing overall well and was headed towards discharge. -She got on naltrexone to help her with sobriety. 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 / anxious; worried about eating disorder thoughts overwhelming her; has already had medical complication due to eating disorder issues. Patient does not want to get a naltrexone. She said that she is frequently hospitalized and requires pain medication making it to anxiety provoking to get on naltrexone 2/3 working hard to combat eating disordered thoughts; overall feels mood and anxiety have improved; denies SI. Hopeful to get in to [facility] inpatient unit 08/07 increased Latuda; room change to avoid roommate who disclosed eating disorder 08/08: reports headache on increased latuda, otherwise tolerating dose increase and does not want med changes. Has been struggling with disordered eating thoughts however has been eating. 08/09: Tolerating latuda, does not want med changes. Continues to report disordered eating thoughts, anxious to go to [facility] inpatient due to fearing wt gain. PLAN: CV q15 min checks Social work working to see if [facility] inpatient eating disorder unit is an option -INCREASED TO Lurasidone 40mg qhs (on 08/07) ADDED Gabapentin 300 mg t.i.d. 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 Reason for contiued inpatient stay Substantial Risk for: harm to self, rapid decompensation and med/psych decompensation
[2021-08-09 17:15] VITALS: BP 121/78; PULSE 77; RESP 16; TEMP 36.6; O2SAT 99
[2021-08-09] MEDS: Lurasidone HCl 40 MG TABLET PO (21:05)
[2021-08-09] MEDS: traZODone HCL 100 MG TABLET PO (21:05)
[2021-08-09] MEDS: diphenhydrAMINE HCL 25 MG TABLET PO (21:05)
[2021-08-09] MEDS: cloNIDine HCL 0.1 MG TABLET PO (21:06)
[2021-08-09] MEDS: clonazePAM 1 MG TABLET 2 MG PO (21:06)
[2021-08-09] MEDS: Zolpidem Tartrate 5 MG TABLET PO (21:06)
[2021-08-09 21:10] VITALS: BP 118/80; PULSE 84
[2021-08-10 05:14] VITALS: BMI 19.0
[2021-08-10 06:28] VITALS: BP 104/51; PULSE 62; RESP 18; TEMP 36; O2SAT 97
[2021-08-10] MEDS: Metoclopramide HCl 5 MG TABLET PO ×3 (08:12→17:11)
[2021-08-10] MEDS: DULoxetine HCl 30 MG CAPSULE.DR 90 MG PO (08:12)
[2021-08-10] MEDS: Bethanechol Chloride 25 MG TABLET PO ×3 (08:12→17:11)
[2021-08-10] MEDS: FLUoxetine HCl 20 MG CAPSULE PO (08:12)
[2021-08-10] MEDS: Gabapentin 400 MG CAPSULE 800 MG PO ×2 (08:13→20:53)
--- NOTE | 2021-08-10 10:14 | P.PNPSI_ITS ---
Subjective Subjective Date of Service: 08/10/21 Reason For Visit: Ileus Interim History: Patient feels that she is overall doing well. She has been eating her meals, despite various triggers; she had her weight taken and even though she realized she gained some weight, it did not overwhelm her or cause her to feel triggered and actually made her feel like that she is able to eat meals and not become fat. Patient feels that her medications are working well; she denies nightmares and also reports good sleep. She is ambivalent about how to proceed with [facility] and says she is leaning more towards wanting to attend as an outpatient. Patient shares several appropriate reasons for this leaning however says that it is always hard to know and that she is open towards being an inpatient as well. Patient denies any SI and reports depression remains resolved and that she is feeling good. Mimeographer and patient discussed risk for relapse and patient agrees that such a thing could derail her progress in her eating disorder. Later in the day it was found out that staff at [facility], who know her well is also leaning towards outpatient admission; they would like to have an intake assessment with her this coming Tuesday during which time they will determine. Patient was very happy to hear they share her same perspective and asked to discharge tomorrow, feeling safe in stable and and able to have the assessment while an outpatient. Mental Status Exam Mental Status Exam Narrative: A&O. Pt is anorexic; dressed in casual cloths, well groomed, good hygiene;. Good eye contact, attentive, cooperative and calm; Speech is normal rate, volume and prosody and Non-pressured and spontaneous;? No prolonged speech latency. Mood is ?good,? affect congruent, bright, calm.? Thought content on treatment and dispo; Denies SI/SIB/HI upon inquiry. Denies A/VH or delusional thought content. Thought process logical, linear and goal oriented; No known cognitive or memory impairment. Insight/ Judgment fair and adequate. Diagnostics Vital Signs (24Hr): Vital Signs - 24 hr 08/09/21 17:15 08/09/21 21:10 08/10/21 06:28 Temperature 97.9 F 96.8 F Pulse Rate 77 84 62 Respiratory Rate 16 18 Blood Pressure 121/78 118/80 104/51 L Pulse Oximetry 99 97 BMI result Verdana 4 Body Mass Index Verdana 4 19.0 Verdana 4 Verdana 4 Medications Medications Current Medications Acetaminophen (Acetaminophen 325 Mg Tablet) 650 mg PO Q6H PRN PRN Reason: Headache/Pain Mild Scale (1-3) Last Admin: 08/08/21 09:08 Dose: 650 mg Documented by: Al Hydroxide/Mg Hydroxide (Magnesium Hydrox/Alum Hydrox 30 Ml Oral.Susp) 30 ml PO Q6H PRN PRN Reason: Heartburn/Nausea Bethanechol Chloride (Bethanechol Chloride 25 Mg Tablet) 25 mg PO TIDAC [facility] Last Admin: 08/10/21 08:12 Dose: 25 mg Documented by: Clonazepam (Clonazepam 1 Mg Tablet) 2 mg PO BEDTIME [facility] Last Admin: 08/09/21 21:06 Dose: 2 mg Documented by: Clonidine HCl (Clonidine Hcl 0.1 Mg Tablet) 0.1 mg PO BEDTIME [facility]; Protocol Last Admin: 08/09/21 21:06 Dose: 0.1 mg Documented by: Diphenhydramine HCl (Diphenhydramine Hcl 25 Mg Tablet) 25 mg PO BEDTIME [facility] Last Admin: 08/09/21 21:05 Dose: 25 mg Documented by: Duloxetine HCl (Duloxetine Hcl 30 Mg Capsule.Dr) 90 mg PO DAILY [facility] Last Admin: 08/10/21 08:12 Dose: 90 mg Documented by: Fluoxetine HCl (Fluoxetine Hcl 20 Mg Capsule) 20 mg PO DAILY [facility] Last Admin: 08/10/21 08:12 Dose: 20 mg Documented by: Gabapentin (Gabapentin 400 Mg Capsule) 400 mg PO DAILY PRN PRN Reason: breakthrough neuropathic pain Last Admin: 08/09/21 14:15 Dose: 400 mg Documented by: Gabapentin (Gabapentin 400 Mg Capsule) 800 mg PO BID [facility] Last Admin: 08/10/21 08:13 Dose: 800 mg Documented by: Hydroxyzine HCl (Hydroxyzine Hcl 25 Mg Tablet) 25 mg PO QID PRN PRN Reason: Anxiety Last Admin: 08/08/21 14:33 Dose: 25 mg Documented by: Loperamide HCl (Loperamide Hcl 2 Mg Capsule) 2 mg PO Q6H PRN PRN Reason: Loose Stool Lurasidone HCl (Lurasidone Hcl 40 Mg Tablet) 40 mg PO BEDTIME [facility] Last Admin: 08/09/21 21:05 Dose: 40 mg Documented by: Magnesium Hydroxide (Milk Of Magnesia 30 Ml Oral.Susp) 30 ml PO DAILY PRN PRN Reason: Constipation Metoclopramide HCl (Metoclopramide Hcl 5 Mg Tablet) 5 mg PO TIDAC [facility] Last Admin: 08/10/21 08:12 Dose: 5 mg Documented by: Naproxen (Naproxen 500 Mg Tablet) 500 mg PO Q12H PRN PRN Reason: migraine Last Admin: 08/09/21 07:04 Dose: 500 mg Documented by: Nicotine (Nicotine 14 Mg Patch.Td24) 14 mg TRANSDERMA DAILY PRN PRN Reason: smoking cessation Nicotine Polacrilex (Nicotine Polacrilex 2 Mg Gum) 4 mg BUCCAL Q2H PRN PRN Reason: Nicotine Cravings Trazodone HCl (Trazodone Hcl 100 Mg Tablet) 100 mg PO BEDTIME [facility] Last Admin: 08/09/21 21:05 Dose: 100 mg Documented by: Zolpidem Tartrate (Zolpidem Tartrate 5 Mg Tablet) 5 mg PO BEDTIME [facility] Last Admin: 08/09/21 21:06 Dose: 5 mg Documented by: Allergies Allergies Allergy/AdvReac Type Severity Reaction Status Date / Time buspirone [From Allergy Swelling Verified 07/23/21 19:02 BuSpar] chlorpromazine Allergy Anaphylaxis Verified 07/23/21 19:02 [From Thorazine] lamotrigine [From Allergy Rash Verified 07/23/21 19:02 Lamictal] Sulfa (Sulfonamide Allergy Rash Verified 07/23/21 19:02 Antibiotics) linaclotide [From AdvReac Abdominal Verified 07/23/21 19:02 Linzess] Pain quetiapine [From AdvReac bad side Verified 07/23/21 19:02 Seroquel] effects' topiramate AdvReac Fogginess Verified 07/23/21 19:02 ziprasidone [From AdvReac psychosis Verified 07/23/21 19:02 Geodon] Assessment & Plan Assessment & Plan (1) Anorexia nervosa, restricting type: Status: Acute Code(s): F50.01 - Anorexia nervosa, restricting type (2) PTSD (post-traumatic stress disorder): Status: Acute Code(s): F43.10 - Post-traumatic stress disorder, unspecified (3) Major depressive disorder, recurrent, moderate: Status: Acute Code(s): F33.1 - Major depressive disorder, recurrent, moderate (4) Opioid abuse: Status: Acute Code(s): F11.10 - Opioid abuse, uncomplicated (5) Cocaine use disorder: Status: Acute Code(s): F14.10 - Cocaine abuse, uncomplicated (6) Ileus: Status: Resolved Code(s): K56.7 - Ileus, unspecified Plan ?Zuleyma is a 35 y.o. Female who carries a dx of PTSD, likely BPD, anorexia nervosa, polysubstance abuse, and MDD, recurrent episode. She is returning to from the hospital floor after being transferred for a bout of what seems to have been ileus, now medically cleared. Patient returns due to continued intense struggles with eating disorder thoughts, anxiety and need for further medication management. Patient is open to [facility] inpatient admission for eating disorder. Denies SI/ Mimeographer spoke with hospitalist Dr. Romero who diagnosed ileus which he reports is not resolved; does not think it was due to naltrexone but is not sure what the trigger was. Informed telegraphic typewriter operator chief that patient has a history of motility problems and that patient should follow-up with her outpatient surgeon to do a motility test. All narcotics discontinued; some narcotic seeking behaviorHI. Initially Patient was admitted to and was no longer suicidal and forthcoming during interviews, benefiting from medication management. -Started on clonidine 0.1 mg TID PRN for sx of nightmares, hyperarousal, and flashbacks which was helpful -P.r.n. Haldol was started however patient got acute dystonic reaction which was treated with Cogentin and resolved; Haldol discontinued -Patient felt she had done best on Prozac and Cymbalta combination and accepted risks of these combined medications including serotonin syndrome feeling that the benefit far outweighed the risks. She reports having tolerated this combination for about 5 years during which time she did overall well (patient was also trialed on Remeron however it was not helpful with insomnia and the idea of potential weight gain was bothersome) -Patient was also started on Latuda help with mood stability and patient reports it was well tolerated and helped her sleep. -Patient was doing overall well and was headed towards discharge. -She got on naltrexone to help her with sobriety. 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 2/2 anxious; worried about eating disorder thoughts overwhelming her; has already had medical complication due to eating disorder issues. Patient does not want to get a naltrexone. She said that she is frequently hospitalized and requires pain medication making it to anxiety provoking to get on naltrexone 2/3 working hard to combat eating disordered thoughts; overall feels mood and anxiety have improved; denies SI. Hopeful to get in to [facility] inpatient unit 08/07 increased Latuda; room change to avoid roommate who disclosed eating disorder 2: reports headache on increased latuda, otherwise tolerating dose increase and does not want med changes. Has been struggling with disordered eating thoughts however has been eating. 2: Tolerating latuda, does not want med changes. Continues to report disordered eating thoughts, anxious to go to [facility] inpatient due to fearing wt gain. 08/10 patient feels overall stable and with much improved mood. She is future oriented. She shares ambivalence about whether to go inpatient or outpatient at [facility]; she leans towards feeling that out patient is most appropriate for her however is open to either. Patient is sleeping well and also eating her meals without trouble. She feels that her eating disordered thoughts are becoming less intense, less able to overwhelm her and that her ability to maintain perspective has improved. Patient feels stable, in a good mood and asks for discharge since she has an upcoming assessment with [facility] this Tuesday which she feels fine to undergo while an outpatient. Mimeographer discussed this with team and oncology social worker Ella Lopez who agrees that patient is not in imminent risk for harm to self or others and is appropriate for discharge. PLAN: CV q15 min checks Social work working to see if [facility] inpatient eating disorder unit is an option Lurasidone 40mg qhs (on 08/07) Gabapentin 300 mg t.i.d. 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 Reason for contiued inpatient stay Substantial Risk for: stable for discharge
[2021-08-10] MEDS: hydrOXYzine HCL 25 MG TABLET PO (17:24)
[2021-08-10 20:45] VITALS: BP 123/77; PULSE 74; TEMP 37; O2SAT 94
[2021-08-10] MEDS: Lurasidone HCl 40 MG TABLET PO (20:53)
[2021-08-10] MEDS: clonazePAM 1 MG TABLET 2 MG PO (20:53)
[2021-08-10] MEDS: diphenhydrAMINE HCL 25 MG TABLET PO (20:53)
[2021-08-10] MEDS: Zolpidem Tartrate 5 MG TABLET PO (20:54)
[2021-08-10] MEDS: traZODone HCL 100 MG TABLET PO (20:54)
[2021-08-10] MEDS: cloNIDine HCL 0.1 MG TABLET PO (20:54)
[2021-08-11 06:00] VITALS: BP 96/47; PULSE 70; RESP 16; TEMP 36.3; O2SAT 98
[2021-08-11] MEDS: DULoxetine HCl 30 MG CAPSULE.DR 90 MG PO (08:29)
[2021-08-11] MEDS: FLUoxetine HCl 20 MG CAPSULE PO (08:30)
[2021-08-11] MEDS: Gabapentin 400 MG CAPSULE 800 MG PO (08:30)
[2021-08-11] MEDS: Metoclopramide HCl 5 MG TABLET PO ×2 (08:30→11:54)
[2021-08-11] MEDS: Bethanechol Chloride 25 MG TABLET PO ×2 (08:30→11:54)
--- NOTE | 2021-08-11 10:16 | PM.PSYDC ---
DS: Providers Provider Date of Service: 08/11/21 Date of admission: 08/04/21 19:27 Date of discharge: 08/11/21 Primary care physician: Caroline Thapa MD Attending physician on admission: Chirag Alcazar Attending physician on discharge: Chirag Alcazar DS: Diagnosis Discharge Diagnosis (1) Anorexia nervosa, restricting type: Status: Acute (2) PTSD (post-traumatic stress disorder): Status: Acute (3) Major depressive disorder, recurrent, moderate: Status: Acute (4) Opioid abuse: Status: Acute (5) Cocaine use disorder: Status: Acute (6) Ileus: Status: Resolved DS: Medications Discharge Medications Home Medications: Home Medications Medication Instructions Recorded Confirmed loperamide 2 mg capsule 2 cap PO Q4H PRN 07/23/21 08/04/21 acetaminophen 325 mg tablet 650 mg PO Q6H PRN 08/02/21 08/04/21 zolpidem 5 mg tablet 5 mg PO BEDTIME 08/02/21 08/04/21 Previous Rx's Medication Instructions Recorded clonazepam 2 mg tablet (Klonopin) 2 mg PO BEDTIME #7 tab 10/31/20 bethanechol chloride 25 mg tablet 25 mg PO TIDAC 30 Days #90 tab 08/11/21 clonidine HCl 0.1 mg tablet 0.1 mg PO TID PRN 30 Days #90 tab 08/11/21 diphenhydramine HCl 25 mg capsule 25 mg PO BEDTIME 30 Days #30 cap 08/11/21 (Wal-Sleep Z) duloxetine 30 mg capsule,delayed 90 mg PO DAILY 30 Days #90 cap 08/11/21 release fluoxetine 20 mg capsule 20 mg PO DAILY 30 Days #30 cap 08/11/21 gabapentin 400 mg capsule 400 mg PO DAILY PRN 30 Days #30 cap 08/11/21 gabapentin 800 mg tablet 800 mg PO BID 30 Days #60 tab 08/11/21 lurasidone 40 mg tablet (Latuda) 40 mg PO BEDTIME 30 Days #30 tab 08/11/21 metoclopramide HCl 5 mg tablet 5 mg PO TIDAC PRN 30 Days #90 tab 08/11/21 trazodone 100 mg tablet 100 mg PO BEDTIME 30 Days #30 tab 08/11/21 Mental Status Exam Mental Status Exam Narrative: A&O. Pt is anorexic; dressed in casual cloths, well groomed, good hygiene;. Good eye contact, attentive, cooperative and calm; Speech is normal rate, volume and prosody and Non-pressured and spontaneous;? No prolonged speech latency. Mood is ?good,? affect congruent, bright, calm.? Thought content on treatment and dispo; Denies SI/SIB/HI upon inquiry. Denies A/VH or delusional thought content. Thought process logical, linear and goal oriented; No known cognitive or memory impairment. Insight/ Judgment fair and adequate. Data Data Completed and Pending Completed studies during hospitalization [Text1]: 08/04/21 06:36 Phosphorus 3.7 Magnesium 2.1 DS: Summary Hospital Course Hospital Course: Zuleyma is a 35 y.o. 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 She was doing well on unit and heading for discharge however developed acute abdominal pain and transferred to medical unit. She is now returning to from the hospital floor after being transferred for a bout of what seems to have been ileus, now medically cleared.? Patient returns due to continued intense struggles with eating disorder thoughts, anxiety and need for further medication management.? Patient is open to [facility] inpatient admission for eating disorder.? Denies SI/ Medical Billing Clerk spoke with hospitalist Dr. Romero who diagnosed ileus which he reports is not resolved; does not think it was due to naltrexone but is not sure what the trigger was.? 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 As mentioned above, she was initially admitted to following overdose on heroin, depressed, anxious and with eating disordered thoughts in face of having her medication regimen changed and ineffective and relapse. When first admitted, she was depressed and anxious but no longer suicidal; pt was forthcoming during interviews and eager and engaged in treatment, needing medication management.? -Started on clonidine 0.1 mg TID PRN for sx of nightmares, hyperarousal, and flashbacks which was helpful -P.r.n. Haldol was started however patient got acute dystonic reaction which was treated with Cogentin and resolved; Haldol discontinued -Patient felt she had done best on Prozac and Cymbalta combination and accepted risks of these combined medications including serotonin syndrome feeling that the benefit far outweighed the risks.? She reports having tolerated this combination for about 5 years during which time she did overall well (patient was also trialed on Remeron however it was not helpful with insomnia and the idea of potential weight gain was bothersome) -Patient was also started on Latuda help with mood stability and patient reports it was well tolerated and helped her sleep.? -Patient was doing overall well and was headed towards discharge.? -She got on naltrexone to help her with sobriety.? 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 patient had abdomnial pain, dx as most likely ileus and transferred to the hospital floor.? treated; dx with Ileus, unknown trigger; pain resolved, patient able to eat and stable to return to On 08/05/21, patient was transferred back to , on re-admission, pt was anxious; worried that eating disorder thoughts would get out of control and overwhelm her; ? Patient does not want to get a naltrexone since she is frequently hospitalized and requires pain medication making it to anxiety provoking to get on naltrexone -working hard to combat eating disordered thoughts; overall feels mood and anxiety have improved; denies SI.? Hopeful to get in to [facility]; initially feeling that she probably needs inpatient unit admission -increased Latuda to 40mg qhs; room change to avoid roommate who disclosed eating disorder -reports headache on increased Latuda, which was tolerable and resolved on it's own. continues to struggle with disordered eating thoughts however has been eating and is working hard to combat them which she was able to do. Over next couple of days, patient feels overall stable and with much improved mood.? She is future oriented. Discussed options for substance abuse treatment programs however patient feels her main issue is with her eating disorder and that is what she wants to focus on. She has some ambivalence about whether to go inpatient or outpatient at [facility]; she leans towards feeling that out patient is most appropriate for her however? is open to either.? Patient is sleeping well and also eating her meals without trouble.? She feels that her eating disordered thoughts are becoming less intense, less able to overwhelm her and that her ability to maintain perspective has improved.? Patient feels stable, in a good mood and asks for discharge since she has an upcoming assessment with [facility] this Tuesday which she feels fine to undergo while an outpatient.? She agrees she is at risk for relapse however is optimistic about staying sober and again hopeful about [facility]. Patient has a long history of severe struggles with substance abuse, eating disordered behaviors and anxiety and it has been discussed and accepted by both patient, team and outpatient providers that she will continue to struggle. And thus, she remains at risk to at some point decompensate, relapse or have worsening eating disorder symptoms. However as mentioned, these are chronic issues of which patient has been dealing with for years and they will not resolve with a longer stay on this inpatient unit; rather they require continued, consistent, long-term treatment. Pt says she is remains invested in treatment and plans to continue to work on her issues, as she has done for years with her outpt therapist in the community and with [facility]'s eating disorder programs. Medical Billing Clerk discussed this with team and social insurance specialist Ella Lopez who agrees that patient is not in imminent risk for harm to self or others and is appropriate for discharge. 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 Patient understand the risks of both immediate and long-term benzodiazepine use and is worried about the potential cognitive affects this can have long-term; she says she wants to cut down and see if a lesser dose can still be effective. Medical Billing Clerk discussed and recommended that patient taper down this medication however magnetic tape typewriter operator agrees that given that she has just come off 4-5 month about of depression, relapse and increased eating disorder symptoms that she may need to wait a bit, until she has demonstrated some continued stability before embarking on such changes Time spent discussing smoking cessation with patient: 3 to 10 minutes Status at Discharge Functional status at discharge: independent ambulation Overall status at discharge: patient is back to baseline Time Spent with Patient Time attestation: Total time spent providing and/or coordinating discharge services: Time spent: Greater than 30 minutes Discharge Plan Discharge Patient Disposition: Home, Self-Care Discharge Diagnosis: anorexia Nervosa, restricting type Referrals: [facility] Intake [Other] - 08/14/21 10:00 am (*They will call your cell phone for appointment ) Caroline Thapa MD [Primary Care Provider] - 08/19/21 10:45 am Lauro James MD [Physician] - 08/12/21 9:45 am (TELEPHONE CONTACT) Discharge Medications: New Latuda 40 mg Tablet 40 mg PO BEDTIME 30 Days Qty: 30 0RF trazodone 100 mg Tablet 100 mg PO BEDTIME 30 Days Qty: 30 0RF metoclopramide HCl 5 mg Tablet 5 mg PO TIDAC PRN (Reason: nausea and vomiting; motility) 30 Days Qty: 90 0RF hydroxyzine HCl 25 mg Tablet 25 mg PO BID PRN (Reason: Anxiety) 30 Days Qty: 30 0RF Continued clonazepam [Klonopin] 2 mg tablet 2 mg PO BEDTIME Qty: 7 1RF loperamide 2 mg capsule 2 cap PO Q4H PRN (Reason: Diarrhea) 0RF gabapentin 400 mg Capsule 400 mg PO DAILY PRN (Reason: BREAKTHROUGH NEUROPATHIC PAIN) 30 Days Qty: 30 0RF gabapentin 800 mg Tablet 800 mg PO BID 30 Days Qty: 60 0RF diphenhydramine HCl [Wal-Sleep Z] 25 mg Capsule 25 mg PO BEDTIME 30 Days Qty: 30 0RF fluoxetine 20 mg Capsule 20 mg PO DAILY 30 Days Qty: 30 0RF duloxetine 30 mg Capsule,Delayed Release(Dr/Ec) 90 mg PO DAILY 30 Days Qty: 90 0RF zolpidem 5 mg Tablet 5 mg PO BEDTIME 0RF acetaminophen 325 mg Tablet 650 mg PO Q6H PRN (Reason: HEADACHE/MILD PAIN) 0RF Changed clonidine HCl 0.1 mg Tablet 0.1 mg PO TID PRN (Reason: for daytime anxiety and bedtime hyperarousal) 30 Days Qty: 90 0RF bethanechol chloride 25 mg tablet 25 mg PO TIDAC 30 Days Qty: 90 0RF Discontinued trazodone 100 mg Tablet 100 mg PO BEDTIME 0RF lurasidone 20 mg Tablet 20 mg PO BEDTIME 0RF Rx Instructions: must administer with food (at least 350 calories) metoclopramide HCl 5 mg Tablet 5 mg PO QIDACHS PRN (Reason: Nausea) 0RF naltrexone 50 mg Tablet 25 mg PO DAILY 0RF benztropine 1 mg Tablet 1 mg PO BID PRN (Reason: Extrapyramidal Effects/Symptoms) 0RF clonidine HCl 0.1 mg Tablet 0.1 mg PO BEDTIME 0RF hydroxyzine HCl 25 mg Tablet 25 mg PO BEDTIME PRN (Reason: Anxiety) 0RF Discharge Orders: Discharge Order (Routine); Ordered 08/11/21 Ordered By: Chirag Alcazar Diet: other Activity on Discharge: As tolerated Stand Alone Forms: Patient Portal Discharge page, Community Support Care Plan Goals: Maintain mood and safe behaviors Take medications as prescribed Continue to pursue sobriety Practice coping skills Continue with outpatient providers and reach out to them as needed Health Concerns: Mood stability and behaviors Sobriety Ileostomy Plan of Treatment: Follow up with your PCP, psychiatric provider and other outpatient providers regarding above concerns Take medications as prescribed Assessment: Risk assessment at time of discharge:? Patient was interviewed prior to discharge and found to be fully oriented and without any SI or HI. Patient has insight and demonstrates good judgment in terms of wanting to pursue treatment. Patient is not in imminent risk of harm to self or others and has a safety plan that includes presenting to the closest ER or calling 911 if feeling unsafe.? Patient has been observed closely by nursing and unit staff throughout admission; patient has not engaged in any behaviors that suggest dangerousness to self or others and has demonstrated appropriate behaviors and impulse control Discharge Date/Time: 08/11/21 15:52
== END 2021-08-11 15:52 | disposition home or self-care (01) | DRG 759 ==
PROVIDERS: Colon & Rectal Surgery; Admitting Provider Psychiatry & Neurology Psychiatry; PCP Family Medicine; Visit Provider Psychiatry & Neurology Psychiatry
DX: F50.01 Anorexia nervosa, restricting type (principal); F33.1 Major depressive disorder, recurrent, moderate; F17.210 Nicotine dependence, cigarettes, uncomplicated; F14.10 Cocaine abuse, uncomplicated; F43.10 Post-traumatic stress disorder, unspecified; Z68.1 Body mass index [BMI] 19.9 or less, adult; Z88.2 Allergy status to sulfonamides; Z79.899 Other long term (current) drug therapy
CPT/HCPCS: 36415; 83735; 84100; Q0163

== ENCOUNTER 2021-08-14 00:38 | Emergency (ER) | payer MEDICAID, SELFPAY ==
[2021-08-14 00:46] VITALS: BP 147/93; PULSE 130; RESP 14; O2SAT 88; BMI 15.1
[2021-08-14 01:00] VITALS: BP 119/77; PULSE 107; RESP 16; TEMP 36.4; O2SAT 100
--- NOTE | 2021-08-14 01:09 | ED_ITS ---
HPI - Overdose General Chief Complaint: General Medical Stated Complaint: Drug use Time Seen by Provider: 08/14/21 01:09 Source: patient Mode of arrival: EMS Limitations: no limitations History of Present Illness MD complaint: other (substance abuse in car - car not running in cold since 9pm) Onset (ago): hour(s) (9pm) Timing confirmed by: other (self states she remembers) Context: Accidental Overdose: wanted to get high Associated symptoms: depression Treatments Prior to Arrival: none Related Data Home Medications Medication Instructions Recorded Confirmed loperamide 2 mg capsule 2 cap PO Q4H PRN 07/23/21 08/04/21 acetaminophen 325 mg tablet 650 mg PO Q6H PRN 08/02/21 08/04/21 zolpidem 5 mg tablet 5 mg PO BEDTIME 08/02/21 08/04/21 Previous Rx's Medication Instructions Recorded clonazepam 2 mg tablet (Klonopin) 2 mg PO BEDTIME #7 tab 10/31/20 bethanechol chloride 25 mg tablet 25 mg PO TIDAC 30 Days #90 tab 08/11/21 clonidine HCl 0.1 mg tablet 0.1 mg PO TID PRN 30 Days #90 tab 08/11/21 diphenhydramine HCl 25 mg capsule 25 mg PO BEDTIME 30 Days #30 cap 08/11/21 (Wal-Sleep Z) duloxetine 30 mg capsule,delayed 90 mg PO DAILY 30 Days #90 cap 08/11/21 release fluoxetine 20 mg capsule 20 mg PO DAILY 30 Days #30 cap 08/11/21 gabapentin 400 mg capsule 400 mg PO DAILY PRN 30 Days #30 cap 08/11/21 gabapentin 800 mg tablet 800 mg PO BID 30 Days #60 tab 08/11/21 hydroxyzine HCl 25 mg tablet 25 mg PO BID PRN 30 Days #30 tab 08/11/21 lurasidone 40 mg tablet (Latuda) 40 mg PO BEDTIME 30 Days #30 tab 08/11/21 metoclopramide HCl 5 mg tablet 5 mg PO TIDAC PRN 30 Days #90 tab 08/11/21 trazodone 100 mg tablet 100 mg PO BEDTIME 30 Days #30 tab 08/11/21 Allergies Allergy/AdvReac Type Severity Reaction Status Date / Time buspirone [From BuSpar] Allergy Swelling Verified 07/23/21 19:02 chlorpromazine Allergy Anaphylaxis Verified 07/23/21 19:02 [From Thorazine] lamotrigine [From Lamictal] Allergy Rash Verified 07/23/21 19:02 Sulfa (Sulfonamide Allergy Rash Verified 07/23/21 19:02 Antibiotics) linaclotide [From Linzess] AdvReac Abdominal Verified 07/23/21 19:02 Pain quetiapine [From Seroquel] AdvReac bad side Verified 07/23/21 19:02 effects' topiramate AdvReac Fogginess Verified 07/23/21 19:02 ziprasidone [From Geodon] AdvReac psychosis Verified 07/23/21 19:02 Review of Systems Review of Systems: Constitutional : No Fever, No Chills ENT/Mouth : No Ear Pain, No Nasal Congestion, No sore throat, states when she uses she sometimes loses her hearing Eyes: No Eye Pain, No Swelling, No Redness Cardiovascular : No Chest Pain, No SOB Respiratory : No Cough, No Sputum, No Dyspnea Gastrointestinal : No Nausea, No Vomiting, No Diarrhea, No Hematochezia, No Melena Genitourinary : No Dysuria, No Urinary Frequency, No Hematuria Musculoskeletal : No Myalgias Skin : No Skin Lesions, No rash Neuro : No Weakness, No Numbness, No Paresthesias, No Dizziness, No Headache Psych : positive Anxiety, positive Depression, no SI/HI Heme/Lymph: No Lymphadenopathy Endocrine : No Polyuria, No Polydipsia All other systems reviewed and are negative PMFSH Past Medical History Attestation statement: The following information was validated with the patient. 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 Primary fibromyalgia syndrome Self-catheterizes urinary bladder Surgical History Hx of total colectomy Social History Social History Household Members: Significant Other Housing: House Do you presently have visiting nurse or other home services: No Patient Tobacco Use Status: Current someday Tobacco user Tobacco use type: Cigarette Cigarettes Per Day: 1 Years Smoked: Started age 17 e-Cigarette/Vaping Use: Never Used Second Hand Smoke Exposure: No Substance Use Type: Crack/Cocaine and Heroin Advance Directives: No service: No Current occupational status: unemployed Sexual orientation: Straight/Heterosexual Physical Exam Vital Signs: Vital Signs: Last Vital Signs Temp 98.0 F 08/14/21 02:08 Pulse 86 08/14/21 03:51 Resp 14 08/14/21 03:51 BP 91/52 L 08/14/21 03:51 Pulse Ox 96 08/14/21 06:01 BMI result Body Mass Index 15.1 Appearance: Alert. Oriented X3. No acute distress. Eyes: Pupils equal, round and reactive to light. ENT: Pharynx normal. Neck: Normal inspection. Neck supple. CVS: Normal heart rate and rhythm. Pulses normal. Respiratory: No respiratory distress. Breath sounds normal. Abdomen: Soft and non-tender. Skin: Skin cool to touch and dry. Normal skin color. Normal skin turgor. Extremities: No lower extremity edema. No calf ttp Neuro: Oriented X 3. No motor deficit. No sensory deficit. Course Course Course Narrative: plan to DC in AM, no narcan given, hearing improved awake and alert stable for DC, has appointment with [facility] rehab this AM and very eager to make appointment MDM - Overdose MDM Narrative Medical decision making narrative: 33 yo female - O2 sats are normal off O2 suspect initial in triage due to her hands being cold, car was not running denies SI was in cold car since 9pm no narcan needed. At this time no signs of trauma no SI will warm the patient and observe until improved. Just left M5 - she possibly wants to speak to CARE team about some medication issues she is having since recent DC. Lab Data Labs: Lab Results 08/14/21 Range/Units 03:09 Carboxyhemoglobin % 4.6 % Discharge Plan Discharge Clinical Impression: Opioid abuse Patient Disposition: Home, Self-Care Instructions: Opioid Use Disorder (ED) Additional Instructions: return to ED for any worsening symptoms or concerns please follow up with your providers today Prescriptions: No Action clonazepam [Klonopin] 2 mg tablet 2 mg PO BEDTIME Qty: 7 1RF loperamide 2 mg capsule 2 cap PO Q4H PRN (Reason: Diarrhea) 0RF Latuda 40 mg Tablet 40 mg PO BEDTIME 30 Days Qty: 30 0RF trazodone 100 mg Tablet 100 mg PO BEDTIME 30 Days Qty: 30 0RF metoclopramide HCl 5 mg Tablet 5 mg PO TIDAC PRN (Reason: nausea and vomiting; motility) 30 Days Qty: 90 0RF clonidine HCl 0.1 mg Tablet 0.1 mg PO TID PRN (Reason: for daytime anxiety and bedtime hyperarousal) 30 Days Qty: 90 0RF gabapentin 400 mg Capsule 400 mg PO DAILY PRN (Reason: BREAKTHROUGH NEUROPATHIC PAIN) 30 Days Qty: 30 0RF bethanechol chloride 25 mg tablet 25 mg PO TIDAC 30 Days Qty: 90 0RF gabapentin 800 mg Tablet 800 mg PO BID 30 Days Qty: 60 0RF diphenhydramine HCl [Wal-Sleep Z] 25 mg Capsule 25 mg PO BEDTIME 30 Days Qty: 30 0RF fluoxetine 20 mg Capsule 20 mg PO DAILY 30 Days Qty: 30 0RF duloxetine 30 mg Capsule,Delayed Release(Dr/Ec) 90 mg PO DAILY 30 Days Qty: 90 0RF hydroxyzine HCl 25 mg Tablet 25 mg PO BID PRN (Reason: Anxiety) 30 Days Qty: 30 0RF zolpidem 5 mg Tablet 5 mg PO BEDTIME 0RF acetaminophen 325 mg Tablet 650 mg PO Q6H PRN (Reason: HEADACHE/MILD PAIN) 0RF
[2021-08-14 02:08] VITALS: BP 117/78; PULSE 113; RESP 16; TEMP 36.7; O2SAT 92
[2021-08-14 03:18] LABS: Carbon Monoxide Refer to POC result
[2021-08-14 03:20] LABS: Carbon Monoxide POC 4.6 %
[2021-08-14 03:51] VITALS: BP 91/52; PULSE 86; RESP 14; O2SAT 100
[2021-08-14 06:01] VITALS: O2SAT 96
--- NOTE | 2021-08-14 06:27 | PC.NURSE ---
Reviewed discharge instruction with pt. pt verbalized understanding, pt escorted with security and PCT to get belongs. Pt was given multiple resource in regards to getting transportation home.
== END 2021-08-14 06:37 | disposition home or self-care (01) ==
PROVIDERS: Emergency Provider Emergency Medicine; PCP Family Medicine
DX: F11.10 Opioid abuse, uncomplicated (principal); F17.200 Nicotine dependence, unspecified, uncomplicated; F32.A Depression, unspecified
CPT/HCPCS: 36415; 99283; 99284

== ENCOUNTER 2021-09-21 15:19 | Inpatient (IN) | payer OTHER, SELFPAY ==
[2021-09-21 16:01] VITALS: BP 107/65; PULSE 72; RESP 16; TEMP 36.6; O2SAT 100; BMI 16.2
--- NOTE | 2021-09-21 16:16 | ED.PSYCH ---
HPI - Psych General Chief Complaint: Psychiatric Symptoms Stated Complaint: crisis Time Seen by Provider: 09/21/21 15:26 Source: patient Mode of arrival: ambulatory Limitations: no limitations History of Present Illness HPI Narrative: 35-year-old female past medical history significant for anorexia nervosa restricting type, PTSD, opiate abuse, major depression, anxiety, suicidal ideation presenting to the emergency department with complaints of anxiety, depression, intermittent suicidal ideation, and substance abuse X1 week . Patient tells me she was recently discharged from the hospital however all her outpatient followups fails, she has not been able to join a program for eating disorders, she was not accepted into the partial program she feels like she has little to no outpatient resources. She mentions she is intermittent suicidal ideation. She tells me she has been struggling a lot with her anorexia. He tells me she has not been eating line and has been using crack to lose weight. She reports 15-17 lb weight loss in the past 3 weeks. She tells me that she feels weak from this. She denies homicidal ideation. She denies visual, auditory and tactile hallucinations. She denies drugs other than crack, tobacco and alcohol. She tells me that she really thinks she needs help. She also mentions to me that she had a suicide attempt her last admission where she tried to overdose on heroin. She is not feeling like that right now but she does tell me she is having intermittent suicidal thoughts with no specific plan. She denies any medical complaints at this time. MD complaint: suicidal ideation and substance abuse Onset (ago): week(s) (1) Duration: constant History of same: Yes Relieving factors: none Exacerbating factors: none Context: recent drug abuse (crack ) Associated psychiatric symptoms: none Associated symptoms: denies other symptoms Treatments prior to arrival: none Related Data Home Medications Medication Instructions Recorded Confirmed loperamide 2 mg capsule 2 cap PO Q4H PRN 07/23/21 09/21/21 acetaminophen 325 mg tablet 650 mg PO Q6H PRN 08/02/21 09/21/21 zolpidem 5 mg tablet 5 mg PO BEDTIME 08/02/21 09/21/21 Previous Rx's Medication Instructions Recorded clonazepam 2 mg tablet (Klonopin) 2 mg PO BEDTIME #7 tab 10/31/20 bethanechol chloride 25 mg tablet 25 mg PO TIDAC 30 Days #90 tab 08/11/21 clonidine HCl 0.1 mg tablet 0.1 mg PO TID PRN 30 Days #90 tab 08/11/21 diphenhydramine HCl 25 mg capsule 25 mg PO BEDTIME 30 Days #30 cap 08/11/21 (Wal-Sleep Z) duloxetine 30 mg capsule,delayed 90 mg PO DAILY 30 Days #90 cap 08/11/21 release fluoxetine 20 mg capsule 20 mg PO DAILY 30 Days #30 cap 08/11/21 gabapentin 400 mg capsule 400 mg PO DAILY PRN 30 Days #30 cap 08/11/21 gabapentin 800 mg tablet 800 mg PO BID 30 Days #60 tab 08/11/21 hydroxyzine HCl 25 mg tablet 25 mg PO BID PRN 30 Days #30 tab 08/11/21 lurasidone 40 mg tablet (Latuda) 40 mg PO BEDTIME 30 Days #30 tab 08/11/21 metoclopramide HCl 5 mg tablet 5 mg PO TIDAC PRN 30 Days #90 tab 08/11/21 trazodone 100 mg tablet 100 mg PO BEDTIME 30 Days #30 tab 08/11/21 Allergies Allergy/AdvReac Type Severity Reaction Status Date / Time buspirone [From BuSpar] Allergy Swelling Verified 07/23/21 19:02 chlorpromazine Allergy Anaphylaxis Verified 07/23/21 19:02 [From Thorazine] lamotrigine [From Lamictal] Allergy Rash Verified 07/23/21 19:02 Sulfa (Sulfonamide Allergy Rash Verified 07/23/21 19:02 Antibiotics) linaclotide [From Linzess] AdvReac Abdominal Verified 07/23/21 19:02 Pain quetiapine [From Seroquel] AdvReac bad side Verified 07/23/21 19:02 effects' topiramate AdvReac Fogginess Verified 07/23/21 19:02 ziprasidone [From Geodon] AdvReac psychosis Verified 07/23/21 19:02 Review of Systems Review of Systems: Constitutional : No Fever, No Chills ENT/Mouth : No sore throat, No Rhinorrhea Eyes: No Eye Pain, No Swelling, No Redness Cardiovascular : No Chest Pain, No SOB Respiratory : No Cough, No Sputum Gastrointestinal : No Nausea, No Vomiting, No Diarrhea, No abdominal Pain Genitourinary : No Dysuria, No Hematuria Musculoskeletal : No joint pain, No Myalgias, No Joint Swelling Skin : No Skin Lesions, No rash Neuro : No Weakness, No Numbness Psych : + Anxiety, + Depression, + SI, No HI/AH/VH All other systems reviewed and are negative Yes all other systems are reviewed and are negative [facility] Past Medical History Attestation statement: The following information was validated with the patient. 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 Primary fibromyalgia syndrome Self-catheterizes urinary bladder Surgical History (Reviewed 08/14/21 @ : by Hattie Velasco DO) Hx of total colectomy Social History Social History (Reviewed 08/14/21 @ : by Hattie Velasco DO) Household Members: Significant Other Housing: House Do you presently have visiting nurse or other home services: No Alcohol intake: current Patient Tobacco Use Status: Current someday Tobacco user Tobacco use type: Cigarette Cigarettes Per Day: 1 Years Smoked: Started age 17 e-Cigarette/Vaping Use: Never Used Second Hand Smoke Exposure: No Substance Use Type: Crack/Cocaine and Heroin Advance Directives: No Advance Directives Information Provided: No Healthcare Proxy: Yes (Aleks Sung) Guardian: No Patient : No service: No Current occupational status: unemployed Sexual orientation: Straight/Heterosexual Physical Exam Vital Signs: Vital Signs: Last Vital Signs Temp 97.9 F 09/21/21 16:01 Pulse 72 09/21/21 16:01 Resp 16 09/21/21 16:01 BP 107/65 09/21/21 16:01 Pulse Ox 100 09/21/21 16:01 BMI result Body Mass Index 16.2 VSS Appearance: Alert.? Oriented X3.? No acute distress. Skinny individual Head: Normocephalic, atraumatic, no step-offs or deformities Eyes: Pupils equal, round and reactive to light.? ENT: Pharynx normal.? Neck: Normal inspection.? Neck supple.? CVS: Normal heart rate and rhythm.? Pulses normal.? Respiratory: No respiratory distress.? Breath sounds normal.? Abdomen: Soft and nontender.? Skin: Skin warm and dry.? Normal skin color.? Normal skin turgor.? Extremities: No lower extremity edema.? No calf ttp. 5/5 strength to bilateral upper and lower extremities Back: No midline tenderness, no C-spine tenderness, full range of motion, no CVA tenderness bilaterally Neuro: Oriented X 3.? No motor deficit.? No sensory deficit. CN 2-12 intact Course Reevaluation(s) Reevaluation #1: CBC appears to be at patient's baseline. Chemistry with no acute electrolyte abnormalities. Transaminases normal. FARIAS positive for fentanyl, cocaine. COVID negative. At this time patient will be placed in physician observation to allow more time to be evaluated by the behavioral health team. A time-out observation was started patient, cooperative no acute distress. Will continue to monitor. Time: 21:54 MDM - Psych MDM Narrative Medical decision making narrative: 1625 35 yo f pmhx anorexia nervosa restricting type, PTSD, opiate abuse, major depression, anxiety, suicidal ideation presenting to the emergency department with complaints of anxiety, depression, intermittent suicidal ideation, and substance abuse X1 week . pe benign plan-labs, farias, bhn, ekg Will rule out electrolyte abnormalities as patient does have a history of anorexia restricting type. Medical Records Attestation: I reviewed the patient's medical records. Lab Data Attestation: I reviewed the patient's lab results. Result diagrams: 09/21/21 16:26 Labs: Lab Results 09/21/21 09/21/21 09/21/21 Range/Units 16:26 16:26 19:37 Sodium 135 (135-145) mmol/L Potassium 3.9 (3.3-5.1) mmol/L Chloride 101 (96-108) mmol/L Carbon Dioxide 27 (22-29) mmol/L Anion Gap 11 L (12-20) BUN 14 D (9-16) mg/dL Creatinine 0.74 (0.5-1.4) mg/dL Estim Creat Clear Calc 74.5 Estimated GFR > 60 Random Glucose 103 (60-115) mg/dL Calcium 9.9 (8.4-10.2) mg/dL Total Bilirubin 0.5 (0.0-1.0) mg/dL AST 26 (5-31) U/L ALT 21 (0-31) U/L Alkaline Phosphatase 52 D (39-117) U/L Total Protein 7.1 (6.5-8.0) g/dL Albumin 4.3 (3.5-5.0) g/dL Urine Opiates Screen Not Detected (Not Detect) Urine Fentanyl Screen POSITIVE H (Not Detect) Ur Barbiturates Screen Not Detected (Not Detect) Ur Phencyclidine Scrn Not Detected (Not Detect) Ur Amphetamines Screen Not Detected (Not Detect) U Benzodiazepines Scrn Not Detected (Not Detect) Urine Cocaine Screen POSITIVE H (Not Detect) U Marijuana (THC) Screen Not Detected (Not Detect) COVID-19 (MESHA) Negative (Negative) COVID-19 Clin Com See Note Critical Care Time Critical Care Time Critical Care Time: No Discharge Plan Discharge Clinical Impression: Anorexia nervosa, Depression, Acute anxiety Patient Disposition: Still a Patient Prescriptions: No Action clonazepam [Klonopin] 2 mg tablet 2 mg PO BEDTIME Qty: 7 1RF loperamide 2 mg capsule 2 cap PO Q4H PRN (Reason: Diarrhea) 0RF Latuda 40 mg Tablet 40 mg PO BEDTIME 30 Days Qty: 30 0RF trazodone 100 mg Tablet 100 mg PO BEDTIME 30 Days Qty: 30 0RF metoclopramide HCl 5 mg Tablet 5 mg PO TIDAC PRN (Reason: nausea and vomiting; motility) 30 Days Qty: 90 0RF clonidine HCl 0.1 mg Tablet 0.1 mg PO TID PRN (Reason: for daytime anxiety and bedtime hyperarousal) 30 Days Qty: 90 0RF gabapentin 400 mg Capsule 400 mg PO DAILY PRN (Reason: BREAKTHROUGH NEUROPATHIC PAIN) 30 Days Qty: 30 0RF bethanechol chloride 25 mg tablet 25 mg PO TIDAC 30 Days Qty: 90 0RF gabapentin 800 mg Tablet 800 mg PO BID 30 Days Qty: 60 0RF diphenhydramine HCl [Wal-Sleep Z] 25 mg Capsule 25 mg PO BEDTIME 30 Days Qty: 30 0RF fluoxetine 20 mg Capsule 20 mg PO DAILY 30 Days Qty: 30 0RF duloxetine 30 mg Capsule,Delayed Release(Dr/Ec) 90 mg PO DAILY 30 Days Qty: 90 0RF hydroxyzine HCl 25 mg Tablet 25 mg PO BID PRN (Reason: Anxiety) 30 Days Qty: 30 0RF zolpidem 5 mg Tablet 5 mg PO BEDTIME 0RF acetaminophen 325 mg Tablet 650 mg PO Q6H PRN (Reason: HEADACHE/MILD PAIN) 0RF
--- NOTE | 2021-09-21 16:27 | ECG_ITS ---
Test Reason : si Blood Pressure : / mmHG Vent. Rate : 051 BPM Atrial Rate : 051 BPM P-R Int : 134 ms QRS Dur : 104 ms QT Int : 480 ms P-R-T Axes : 062 064 035 degrees QTc Int : 442 ms Sinus bradycardia Otherwise normal ECG When compared with ECG of 23-JUL-2021 23:34, No significant change was found Referred By: Freida Nam Electronically Signed By:Silvio Lentz
[2021-09-21 16:46] LABS: Alanine Aminotransferase 21 U/L (0-31); Albumin Level 4.3 g/dL (3.5-5.0); Alkaline Phosphatase 52 U/L (39-117); Anion Gap 11 (12-20); Aspartate Amino Transferase 26 U/L (5-31); Bilirubin Total 0.5 mg/dL (0.0-1.0); Blood Urea Nitrogen 14 mg/dL (9-16); Calcium 9.9 mg/dL (8.4-10.2); Carbon Dioxide 27 mmol/L (22-29); Chloride 101 mmol/L (96-108); Creatinine Clr Calc Pharmacy 74.5; Estimated Glomerular Filt Rate > 60; Glucose Random 103 mg/dL (60-115); Potassium 3.9 mmol/L (3.3-5.1); Sodium 135 mmol/L (135-145); Total Protein 7.1 g/dL (6.5-8.0)
[2021-09-21 16:52] LABS: COVID-19 Test Negative (Negative); IDNOW Serial# 55D5AD1C
--- NOTE | 2021-09-21 18:56 | MHC.CARE ---
[facility] unable to send a clinician to meet with pt during this shift. CARE team will complete evaluation instead. This fiction and nonfiction writer prose attempted to meet with pt at 6pm, pt was very drowsy and unable to participate in clinical interview at that time. Another attempt will be made later this evening.
[2021-09-21 19:57] LABS: Amphetamine Screen Urine Not Detected (Not Detect); Barbiturates, Urine Not Detected (Not Detect); Benzodiazepines Screen Urine Not Detected (Not Detect); Cannabinoid Screen Urine Not Detected (Not Detect); Cocaine Screen Urine POSITIVE (Not Detect); Fentanyl, urine POSITIVE (Not Detect); Opiate Screen Urine Not Detected (Not Detect); Phencyclidine Screen Urine Not Detected (Not Detect)
[2021-09-21] MEDS: Zolpidem Tartrate 5 MG TABLET PO (22:17)
[2021-09-21] MEDS: diphenhydrAMINE HCL 25 MG TABLET PO (22:17)
[2021-09-21] MEDS: traZODone HCL 100 MG TABLET PO (22:17)
[2021-09-21] MEDS: clonazePAM 1 MG TABLET 2 MG PO (22:17)
[2021-09-21] MEDS: Gabapentin 400 MG CAPSULE 800 MG PO (22:17)
[2021-09-21] MEDS: Loperamide HCl 2 MG CAPSULE 4 MG PO (22:22)
--- NOTE | 2021-09-21 23:55 | MHC.CARE ---
CARE team completed evaluation. Plan is for referral/placement on a specialized eating disorder unit. CARE team will contact [facility] in [place] on .
--- NOTE | 2021-09-22 06:05 | PC.NURSE ---
Patient slept through the night, no distress observed/reported, behavior pleasant and appropriate, medication compliant, care team completed assessment disposition referral to [facility] in [place] for eating related issues, VSS, patient has colostomy apparatus, independent colostomy care, will continue to monitor.
[2021-09-22 06:14] VITALS: BP 102/53; PULSE 63; RESP 16; TEMP 36.8; O2SAT 96
--- NOTE | 2021-09-22 07:12 | PC.NURSE ---
patient appears to remain asleep at p[resent respirations are even and unlabored patient appears in no distress
[2021-09-22] MEDS: Gabapentin 400 MG CAPSULE 800 MG PO ×2 (07:46→21:26)
[2021-09-22] MEDS: FLUoxetine HCl 20 MG CAPSULE PO (07:47)
[2021-09-22] MEDS: DULoxetine HCl 30 MG CAPSULE.DR 90 MG PO (07:47)
[2021-09-22] MEDS: Loperamide HCl 2 MG CAPSULE 4 MG PO (09:20)
[2021-09-22 10:38] VITALS: BMI 16.9
--- NOTE | 2021-09-22 13:43 | MHC.CARE ---
Call back from [facility], they received fax and determined that patient meets criteria for admission (they only have Eating D/O unit) and is now on the wait list which could be weeks. They take transfers from inpatient units and also med floors, please let them know if she is discharged.
[2021-09-22 19:47] VITALS: BP 97/52; PULSE 63; RESP 20; TEMP 36.6; O2SAT 98
[2021-09-22] MEDS: traZODone HCL 100 MG TABLET PO (21:26)
[2021-09-22] MEDS: Zolpidem Tartrate 5 MG TABLET PO (21:26)
[2021-09-22] MEDS: diphenhydrAMINE HCL 25 MG TABLET PO (21:26)
[2021-09-22] MEDS: clonazePAM 1 MG TABLET 2 MG PO (21:26)
[2021-09-22] MEDS: Lurasidone HCl 40 MG TABLET PO (21:55)
[2021-09-23 06:10] VITALS: BP 102/62; PULSE 76; RESP 16; TEMP 36.6; O2SAT 97
--- NOTE | 2021-09-23 06:40 | PC.NURSE ---
Patient slept through the night, no distress observed/reported, behavior appropriate and non concerning, disposition per care team is voluntary inpatient bed search, medication compliant, expressing need well, appetite good, independent with colostomy care, will continue to monitor.
--- NOTE | 2021-09-23 07:19 | PC.NURSE ---
patient appears to remain asleep at present respirations are even and unlabored patient appears in no distress
[2021-09-23] MEDS: DULoxetine HCl 30 MG CAPSULE.DR 90 MG PO (10:31)
[2021-09-23] MEDS: FLUoxetine HCl 20 MG CAPSULE PO (10:31)
[2021-09-23] MEDS: Gabapentin 400 MG CAPSULE 800 MG PO ×2 (10:31→20:34)
--- NOTE | 2021-09-23 11:20 | MHC.CARE ---
Care team calls [facility] ([phone]) to cancel Zuleyma Reynaga?s appts, on her behalf, with Lauro James and Shiloh Brady.? CARE Team speaks with Gillian who advises CARE Team that they will cancel the above appointments.? CARE Team is transferred to Shiloh Brady?s extension, a message with a return number was left.? ? CARE Team is advised that the appointments were canceled without penalty to the patient. ? Please work with pt to reschedule these appointments when she is close to discharge from an inpatient unit.
[2021-09-23 18:06] VITALS: BP 117/71; PULSE 75; RESP 16; TEMP 37.1; O2SAT 100
[2021-09-23 20:07] VITALS: BP 105/73; PULSE 89; RESP 16; O2SAT 99
[2021-09-23] MEDS: Lurasidone HCl 40 MG TABLET PO (20:31)
[2021-09-23] MEDS: diphenhydrAMINE HCL 25 MG TABLET PO (20:34)
[2021-09-23] MEDS: traZODone HCL 100 MG TABLET PO (20:34)
[2021-09-23] MEDS: clonazePAM 1 MG TABLET 2 MG PO (20:34)
[2021-09-23] MEDS: Zolpidem Tartrate 5 MG TABLET PO (20:35)
[2021-09-24 05:29] VITALS: BP 125/58; PULSE 58; RESP 17; TEMP 36.5; O2SAT 97
--- NOTE | 2021-09-24 07:07 | PC.NURSE ---
Care assumed at this time, report from Heber ZHANG. Pt sleeping at this time, resp reg and even, NAD. Awaiting admission to .
[2021-09-24] MEDS: DULoxetine HCl 30 MG CAPSULE.DR 90 MG PO (08:07)
[2021-09-24] MEDS: Gabapentin 400 MG CAPSULE 800 MG PO ×2 (08:07→21:56)
[2021-09-24] MEDS: FLUoxetine HCl 20 MG CAPSULE PO (08:08)
[2021-09-24 08:13] VITALS: BP 105/55; PULSE 59; RESP 15; TEMP 36.4; O2SAT 93
[2021-09-24 15:18] VITALS: BP 114/73; PULSE 99; RESP 14; TEMP 36.9; O2SAT 98
--- NOTE | 2021-09-24 17:04 | PC.ADMIT ---
Patient admitted to unit from [facility] ED where she presented for worsening symptoms of depression and exacerbation of her anorexia. Patient reported that for the last month she has been inconsistently taking her meds , sleeping poorly, using crack cocaine to curb her appetite not eating for days at a time and restricting her caloric intake. In the days immediately prior to her presenting to ED she had been engaged in suicide planning. Patient had been trying to write letters to loved ones and thinking of methods of substance abuse to commit suicide that would be more successful than a previous attempt in July 2021 of heroin/cocaine overdose which required administration of Narcan and subsequent visit to ED.Patient was admitted to at that time and discharged 08/11/21. Patient reports she had been experiencing increasing physical weakness and body aches, difficulty going up and down stairs and difficulty attending to her hygiene and ADL's. Patient reported to that she has lost 10-15 lbs.in the past 3 weeks. Patient is alert and oriented x4. Presents as calm, pleasant and cooperative. Patient participated fully in admission process. Denies AH/VH/SI/HI at this time. Patient mood noted to be depressed with congruent affect. Speech clear and soft. Intermittent eye contact. Patient has an ostomy which necessitates her being on a restrictive diet, eliminating foods with skins, seeds and fiber. Patient also performs straight catheterization and has her own supplies. Patient expressed discharge goal of being admitted to a partial program and attributes lack of said programming as a reason for relapse following suicide attempt in July and discharge from [facility] in . Patient was oriented to unit and is resting comfortably in her room at this time.
[2021-09-24 18:00] VITALS: BP 110/71; PULSE 81; RESP 16; TEMP 36.4; O2SAT 99
--- NOTE | 2021-09-24 18:45 | P.HPPS_ITS ---
HPI Date of Service: 09/24/21 Chief Complaint: depression/SI Sources of Information: patient interviewed, chart reviewed and crisis/core team assessment reviewed HPI Subjective Notes: [facility] Warning and Conditional Voluntary Healthcare Proxy: No Guardianship: No Medical Problems Affecting Mental Status: No Narrative: Zuleyma is a 35 y.o. Female who carries a dx of PTSD, likely BPD, anorexia nervosa, polysubstance abuse, and MDD, recurrent episode. Pt has co-morbid medical issues of ileostomy (paralytic ileus), chronic pain, excessive fragmentary myoclonus, and urinary retention and she arrived at the ED with her own medical material to self cath (straight catheter). She presented to [facility] ED on 09/21/21 due to SI, worsening anxiety and depression, restricting behavior, and relapse on substances. Pt reported she was unable to follow up with OP referrals upon recent discharge from [facility] on 08/11/21. She was not accepted to [facility]. Pt has been restricting and using crack cocaine to lose weight, has lost 15-17 lbs in the past 3 weeks. Pt was evaluated this evening and upon interview she reports she ?left here with no program to go to, [facility] was not putting me on the waitlist, and my eating got really bad.? Says she doent know what happened, but ?I just wanted to lose weight, I started starving myself for days at a time,? was using crack cocaine when she felt hunger pangs. Says she got down to 95-98 lbs and felt like ?I was slowly killing myself.? Says she started to have hallucinations, ?seeing things,? i.e. it looked like ?things were moving,? ?lights were going in and out.? Says ?I needed help but I didnt know how to get help.? She is unsure how her utox is positive for fentanyl, denies using heroin or feeling any sx of withdrawal. Says she currently feels ?pretty hungry? and physically improved since she has been eating in the ED, as when she first came in ?my body hurt so much, I could barely walk.??? Past Psychiatric History: -Per chart, hx of suicide attempts at age 10 and 22. -Hx of intentionally ODing on heroin on 07/22/20 as a suicide attempt and was administered narcan at [facility]. -Per chart, hx of IPLOC 32x in the [place] area for her eating disorder. Hx of PHP 2x in 2020 at [facility] (October and April). Hx of admission to [facility]. -Hx of OP therapy since age 12, psychiatrist is Dr. James -Hx of disordered eating/ anorexia since age 16. -Hx of TMS in 2019 at [facility], denied benefit supervisor long goods. -Past med trials: Pt reports she was on prozac simultaneously with cymbalta. She denies benefit on prozac. Says she is ?very opposed? to seroquel. Wellbutrin. Lamictal (rash). Remeron. 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 Social History: -Lives with her bf, who she says is supportive. 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 Trauma History: -Per chart, describes past several years with organ failure related to anorexia, experiences from substance use, as traumatic. Diagnostics Vital Signs (24Hr): Vital Signs - 24 hr 09/23/21 20:07 09/24/21 05:29 09/24/21 08:13 Temperature 97.7 F 97.6 F Pulse Rate 89 58 59 Respiratory Rate 16 17 15 Blood Pressure 105/73 125/58 L 105/55 L Pulse Oximetry 99 97 93 09/24/21 15:18 Temperature 98.5 F Pulse Rate 99 Respiratory Rate 14 Blood Pressure 114/73 Pulse Oximetry 98 BMI result Body Mass Index 16.9 Labs Results: 09/21/21 16:26 Meds/Allergies Meds Home Medications Acetaminophen (Acetaminophen 325 Mg Tablet) 650 mg PO Q6H PRN PRN Reason: HEADACHE/MILD PAIN Al Hydroxide/Mg Hydroxide (Magnesium Hydrox/Alum Hydrox 30 Ml Oral.Susp) 30 ml PO Q6H PRN PRN Reason: Heartburn/Nausea Bethanechol Chloride (Bethanechol Chloride 25 Mg Tablet) 25 mg PO TIDAC [facility] Last Admin: 09/24/21 21:54 Dose: Not Given Documented by: Clonazepam (Clonazepam 1 Mg Tablet) 2 mg PO BEDTIME [facility] Last Admin: 09/24/21 21:56 Dose: 2 mg Documented by: Clonidine HCl (Clonidine Hcl 0.1 Mg Tablet) 0.1 mg PO TID PRN; Protocol PRN Reason: for daytime anxiety and bedtime hyperarousal Diphenhydramine HCl (Diphenhydramine Hcl 25 Mg Tablet) 25 mg PO BEDTIME [facility] Last Admin: 09/24/21 21:56 Dose: 25 mg Documented by: Duloxetine HCl (Duloxetine Hcl 30 Mg Capsule.Dr) 90 mg PO DAILY [facility] Last Admin: 09/24/21 08:07 Dose: 90 mg Documented by: Fluoxetine HCl (Fluoxetine Hcl 20 Mg Capsule) 20 mg PO DAILY [facility] Last Admin: 09/24/21 08:08 Dose: 20 mg Documented by: Gabapentin (Gabapentin 400 Mg Capsule) 400 mg PO DAILY PRN PRN Reason: BREAKTHROUGH NEUROPATHIC PAIN Gabapentin (Gabapentin 400 Mg Capsule) 800 mg PO BID [facility] Last Admin: 09/24/21 21:56 Dose: 800 mg Documented by: Hydroxyzine HCl (Hydroxyzine Hcl 25 Mg Tablet) 25 mg PO BID PRN PRN Reason: Anxiety Loperamide HCl (Loperamide Hcl 2 Mg Capsule) 4 mg PO Q4H PRN PRN Reason: Diarrhea Last Admin: 09/22/21 09:20 Dose: 4 mg Documented by: Lurasidone HCl (Lurasidone Hcl 40 Mg Tablet) 40 mg PO BEDTIME [facility] Last Admin: 09/24/21 21:56 Dose: 40 mg Documented by: Metoclopramide HCl (Metoclopramide Hcl 5 Mg Tablet) 5 mg PO TIDAC PRN PRN Reason: nausea and vomiting; motility Nicotine (Nicotine 21 Mg Patch.Td24) 21 mg TRANSDERMA DAILY PRN PRN Reason: nicotine cravings Nicotine Polacrilex (Nicotine Polacrilex 2 Mg Gum) 4 mg BUCCAL Q2H PRN PRN Reason: Nicotine Cravings Trazodone HCl (Trazodone Hcl 100 Mg Tablet) 100 mg PO BEDTIME [facility] Last Admin: 09/24/21 21:56 Dose: 100 mg Documented by: Zolpidem Tartrate (Zolpidem Tartrate 5 Mg Tablet) 5 mg PO BEDTIME [facility] Last Admin: 09/24/21 21:56 Dose: 5 mg Documented by: Allergies Allergies Allergy/AdvReac Type Severity Reaction Status Date / Time buspirone [From BuSpar] Allergy Swelling Verified 07/23/21 19:02 chlorpromazine Allergy Anaphylaxis Verified 07/23/21 19:02 [From Thorazine] lamotrigine [From Lamictal] Allergy Rash Verified 07/23/21 19:02 Sulfa (Sulfonamide Allergy Rash Verified 07/23/21 19:02 Antibiotics) linaclotide [From Linzess] AdvReac Abdominal Verified 07/23/21 19:02 Pain quetiapine [From Seroquel] AdvReac bad side Verified 07/23/21 19:02 effects' topiramate AdvReac Fogginess Verified 07/23/21 19:02 ziprasidone [From Geodon] AdvReac psychosis Verified 07/23/21 19:02 Mental Status Exam Mental Status Exam Narrative: A&O. Pt is frail appearing, lying down in bed, in hospital attire. Good eye contact, attentive. No Tics or Tremors. No abnormal involuntary movements. Calm, cooperative, engaged. Non-pressured speech, spontaneous with regular rate and rhythm, normal volume and prosody. No prolonged speech latency or dysarthria. Mood is ?depressed,? affect is constricted. Denies SI/SIB/HI upon inquiry. Denies A/VH or delusional thought content. Thoughts are coherent, organized. No known cognitive or memory impairment. Insight/ Judgment is poor due to chronic self harm behaviors and substance use. Assessment & Plan Assessment & Plan (1) Anorexia nervosa: Status: Acute Code(s): F50.00 - Anorexia nervosa, unspecified (2) Opioid abuse: Status: Acute Code(s): F11.10 - Opioid abuse, uncomplicated (3) Major depressive disorder, recurrent, moderate: Status: Acute Code(s): F33.1 - Major depressive disorder, recurrent, moderate (4) Anorexia nervosa, restricting type: Status: Acute Code(s): F50.01 - Anorexia nervosa, restricting type (5) PTSD (post-traumatic stress disorder): Status: Acute Code(s): F43.10 - Post-traumatic stress disorder, unspecified Plan Zuleyma is a 35 y.o. Female who carries a dx of PTSD, likely BPD, anorexia nervosa, polysubstance abuse, and MDD, recurrent episode. She presented to [facility] ED on 09/21/21 reporting passive SI, using crack cocaine in an attempt to lose weight. Pt has multiple co-morbid medical concerns including ostomy bag, urinary retention, and chronic pain. Has long hx of IPLOC, PHP, and detox. Has OP psych services, psychiatrist is Dr. Anand. Plan: CV, Q15 min safety checks Pt reports positive benefit on medications from most recent discharge from , does not want medication changes at this time. She has been struggling with her disordered eating behavior and has been unable to obtain placement at an eating disorder clinic/ program.? Monitor response to medications. Monitor for safety in the milieu. Discharge on stabilization. Patient seen. Chart reviewed. Discussed with team. Obtain collateral contact info as needed Patient educated on: substance abuse Reason for continued inpatient stay Substantial Risk for: harm to self and med/psych decompensation
[2021-09-24] MEDS: diphenhydrAMINE HCL 25 MG TABLET PO (21:56)
[2021-09-24] MEDS: traZODone HCL 100 MG TABLET PO (21:56)
[2021-09-24] MEDS: Zolpidem Tartrate 5 MG TABLET PO (21:56)
[2021-09-24] MEDS: clonazePAM 1 MG TABLET 2 MG PO (21:56)
[2021-09-24] MEDS: Lurasidone HCl 40 MG TABLET PO (21:56)
[2021-09-25 06:00] VITALS: BP 116/74; PULSE 71; RESP 18; TEMP 36.6; O2SAT 99
[2021-09-25] MEDS: Bethanechol Chloride 25 MG TABLET PO (06:33)
[2021-09-25] MEDS: FLUoxetine HCl 20 MG CAPSULE PO (08:56)
[2021-09-25] MEDS: Gabapentin 400 MG CAPSULE 800 MG PO ×2 (08:56→22:08)
[2021-09-25] MEDS: DULoxetine HCl 30 MG CAPSULE.DR 90 MG PO (08:56)
[2021-09-25 09:34] LABS: Alanine Aminotransferase 18 U/L (0-31); Albumin Level 4.1 g/dL (3.5-5.0); Alkaline Phosphatase 47 U/L (39-117); Anion Gap 10 (12-20); Aspartate Amino Transferase 19 U/L (5-31); Bilirubin Total 0.5 mg/dL (0.0-1.0); Blood Urea Nitrogen 9 mg/dL (9-16); Calcium 10.2 mg/dL (8.4-10.2); Carbon Dioxide 31 mmol/L (22-29); Chloride 104 mmol/L (96-108); Creatinine Clr Calc Pharmacy 71.6; Estimated Glomerular Filt Rate > 60; Glucose Fasting 98 mg/dL (60-99); Potassium 4.5 mmol/L (3.3-5.1); Sodium 140 mmol/L (135-145)
[2021-09-25 13:02] LABS: UPreg QC Valid YES; Urine Pregnancy NEGATIVE (NEGATIVE)
[2021-09-25 18:00] VITALS: BP 116/73; PULSE 81
--- NOTE | 2021-09-25 18:05 | HO.PSYCHPN ---
Subjective Subjective Date of Service: 09/25/21 Reason For Visit: depression/SI Interim History: pt a little more hopeful; denies SI. discussed how she got trapped in cycle of eating disorder, using crack cocaine to limit her diet, but dropping to 90 lbs, getting dizzy and unsteady on her feet. She said she was simply unable to get herself eating again and was worried she would of starvation if she did not present. Patient says on the unit she is eating again and is feeling a little better. She feels med regimen established at last admission is helpful; she had some struggles getting Latuda filled as she was told it needed a 2nd prior auth. Pt also disappointed in administrative bungle that delayed admission to [place]. She remained sober from heroin. Mental Status Exam Mental Status Exam Narrative: A&O. Pt is frail appearing, well groomed with good hygiene. Good eye contact, attentive. No Tics or Tremors. No abnormal involuntary movements. Calm, cooperative, engaged. Non-pressured speech, spontaneous with regular rate and rhythm, normal volume and prosody. No prolonged speech latency or dysarthria. Mood is ?depressed,? affect is constricted. Denies SI/SIB/HI upon inquiry. Denies A/VH or delusional thought content. Thoughts are coherent, organized. No known cognitive or memory impairment. Insight/ Judgment impaired Diagnostics Vital Signs (24Hr): Vital Signs - 24 hr 09/25/21 06:00 Temperature 97.9 F Pulse Rate 71 Respiratory Rate 18 Blood Pressure 116/74 Pulse Oximetry 99 BMI result Body Mass Index 16.9 Labs Results: 09/25/21 08:47 Labs: Laboratory Results - last 48 hr 09/25/21 09/25/21 08:47 12:38 Sodium 140 Potassium 4.5 Chloride 104 Carbon Dioxide 31 H Anion Gap 10 L BUN 9 Creatinine 0.80 Estim Creat Clear Calc 71.6 Estimated GFR > 60 Fasting Glucose 98 Calcium 10.2 Total Bilirubin 0.5 AST 19 ALT 18 Alkaline Phosphatase 47 Total Protein 7.0 Albumin 4.1 Urine Test NEGATIVE Medications Medications Current Medications Acetaminophen (Acetaminophen 325 Mg Tablet) 650 mg PO Q6H PRN PRN Reason: HEADACHE/MILD PAIN Al Hydroxide/Mg Hydroxide (Magnesium Hydrox/Alum Hydrox 30 Ml Oral.Susp) 30 ml PO Q6H PRN PRN Reason: Heartburn/Nausea Bethanechol Chloride (Bethanechol Chloride 25 Mg Tablet) 25 mg PO TIDAC [facility] Last Admin: 09/25/21 12:46 Dose: Not Given Documented by: Clonazepam (Clonazepam 1 Mg Tablet) 2 mg PO BEDTIME [facility] Last Admin: 09/24/21 21:56 Dose: 2 mg Documented by: Clonidine HCl (Clonidine Hcl 0.1 Mg Tablet) 0.1 mg PO TID PRN; Protocol PRN Reason: for daytime anxiety and bedtime hyperarousal Diphenhydramine HCl (Diphenhydramine Hcl 25 Mg Tablet) 25 mg PO BEDTIME [facility] Last Admin: 09/24/21 21:56 Dose: 25 mg Documented by: Duloxetine HCl (Duloxetine Hcl 30 Mg Capsule.Dr) 90 mg PO DAILY [facility] Last Admin: 09/25/21 08:56 Dose: 90 mg Documented by: Fluoxetine HCl (Fluoxetine Hcl 20 Mg Capsule) 20 mg PO DAILY [facility] Last Admin: 09/25/21 08:56 Dose: 20 mg Documented by: Gabapentin (Gabapentin 400 Mg Capsule) 400 mg PO DAILY PRN PRN Reason: BREAKTHROUGH NEUROPATHIC PAIN Gabapentin (Gabapentin 400 Mg Capsule) 800 mg PO BID [facility] Last Admin: 09/25/21 08:56 Dose: 800 mg Documented by: Hydroxyzine HCl (Hydroxyzine Hcl 25 Mg Tablet) 25 mg PO BID PRN PRN Reason: Anxiety Loperamide HCl (Loperamide Hcl 2 Mg Capsule) 4 mg PO Q4H PRN PRN Reason: Diarrhea Last Admin: 09/22/21 09:20 Dose: 4 mg Documented by: Lurasidone HCl (Lurasidone Hcl 40 Mg Tablet) 40 mg PO BEDTIME [facility] Last Admin: 09/24/21 21:56 Dose: 40 mg Documented by: Metoclopramide HCl (Metoclopramide Hcl 5 Mg Tablet) 5 mg PO TIDAC PRN PRN Reason: nausea and vomiting; motility Nicotine (Nicotine 21 Mg Patch.Td24) 21 mg TRANSDERMA DAILY PRN PRN Reason: nicotine cravings Nicotine Polacrilex (Nicotine Polacrilex 2 Mg Gum) 4 mg BUCCAL Q2H PRN PRN Reason: Nicotine Cravings Trazodone HCl (Trazodone Hcl 100 Mg Tablet) 100 mg PO BEDTIME [facility] Last Admin: 09/24/21 21:56 Dose: 100 mg Documented by: Zolpidem Tartrate (Zolpidem Tartrate 5 Mg Tablet) 5 mg PO BEDTIME [facility] Last Admin: 09/24/21 21:56 Dose: 5 mg Documented by: Allergies Allergies Allergy/AdvReac Type Severity Reaction Status Date / Time buspirone [From BuSpar] Allergy Swelling Verified 07/23/21 19:02 chlorpromazine Allergy Anaphylaxis Verified 07/23/21 19:02 [From Thorazine] lamotrigine [From Lamictal] Allergy Rash Verified 07/23/21 19:02 Sulfa (Sulfonamide Allergy Rash Verified 07/23/21 19:02 Antibiotics) linaclotide [From Linzess] AdvReac Abdominal Verified 07/23/21 19:02 Pain quetiapine [From Seroquel] AdvReac bad side Verified 07/23/21 19:02 effects' topiramate AdvReac Fogginess Verified 07/23/21 19:02 ziprasidone [From Geodon] AdvReac psychosis Verified 07/23/21 19:02 Assessment & Plan Assessment & Plan (1) Anorexia nervosa: Status: Acute Code(s): F50.00 - Anorexia nervosa, unspecified (2) Opioid abuse: Status: Acute Code(s): F11.10 - Opioid abuse, uncomplicated (3) Major depressive disorder, recurrent, moderate: Status: Acute Code(s): F33.1 - Major depressive disorder, recurrent, moderate (4) Anorexia nervosa, restricting type: Status: Acute Code(s): F50.01 - Anorexia nervosa, restricting type (5) PTSD (post-traumatic stress disorder): Status: Acute Code(s): F43.10 - Post-traumatic stress disorder, unspecified Plan Zuleyma is a 35 y.o. Female who carries a dx of PTSD, likely BPD, anorexia nervosa, polysubstance abuse, and MDD, recurrent episode. She presented to [facility] ED on 09/21/21 reporting passive SI, using crack cocaine in an attempt to lose weight. Pt has multiple co-morbid medical concerns including ostomy bag, urinary retention, and chronic pain. Has long hx of IPLOC, PHP, and detox. Has OP psych services, psychiatrist is Dr. Anand. 09/25 depressed, but no SI; starting to eat again; continue current med regimen Plan: CV, Q15 min safety checks Pt reports positive benefit on medications from most recent discharge from , does not want medication changes at this time. She has been struggling with her disordered eating behavior and has been unable to obtain placement at an eating disorder clinic/ program.? Monitor response to medications. Monitor for safety in the milieu. Discharge on stabilization. Patient seen. Chart reviewed. Discussed with team. Obtain collateral contact info as needed I spent minutes with the patient and/or on the patient floor today, greater than?50% of which was spent counseling/coordinating care. Patient educated on: diagnosis and substance abuse Informed Consent: understands Reason for contiued inpatient stay Substantial Risk for: rapid decompensation
[2021-09-25] MEDS: clonazePAM 1 MG TABLET 2 MG PO (22:07)
[2021-09-25] MEDS: Lurasidone HCl 40 MG TABLET PO (22:07)
[2021-09-25] MEDS: diphenhydrAMINE HCL 25 MG TABLET PO (22:08)
[2021-09-25] MEDS: Zolpidem Tartrate 5 MG TABLET PO (22:08)
[2021-09-25] MEDS: traZODone HCL 100 MG TABLET PO (22:08)
[2021-09-26 06:00] VITALS: BP 102/59; PULSE 52; RESP 14; TEMP 36.3; O2SAT 99
[2021-09-26] MEDS: Bethanechol Chloride 25 MG TABLET PO ×2 (08:52→16:54)
[2021-09-26] MEDS: Gabapentin 400 MG CAPSULE 800 MG PO ×2 (08:52→22:22)
[2021-09-26] MEDS: DULoxetine HCl 30 MG CAPSULE.DR 90 MG PO (08:52)
[2021-09-26] MEDS: FLUoxetine HCl 20 MG CAPSULE PO (08:52)
--- NOTE | 2021-09-26 17:38 | HO.PSYCHPN ---
Subjective Subjective Date of Service: 09/26/21 Reason For Visit: depression/SI Interim History: Patient seen and discussed with team. Pt is going to groups, eating 20% of meals. Patient evaluated today and upon interview pt reports it took her a while to fall asleep, but feels she got a pretty good amount of sleep. Says she is eating 100 percent of her meal, but her meal isnt very big, having snacks too. Medications are good. Willing to go to [facility] for disordered but there's still a waitlist. Denies physical health issues, still straight cathing. In the milieu, patient is safe and appropriate in behavior. Says she feels safe. Medication Compliance: Yes Side effects from medications: No Attending Groups: Yes Review of Systems Acute medical concerns: No Medical Review of Systems: unchanged Mental Status Exam Mental Status Exam Narrative: A&O. Pt is frail appearing, well groomed with good hygiene. Good eye contact, attentive. No Tics or Tremors. No abnormal involuntary movements. Calm, cooperative, engaged. Non-pressured speech, spontaneous with regular rate and rhythm, normal volume and prosody. No prolonged speech latency or dysarthria. Mood is ?tired,? affect is constricted. Denies SI/SIB/HI upon inquiry. Denies A/VH or delusional thought content. Thoughts are coherent, organized. No known cognitive or memory impairment. Insight/ Judgment impaired Diagnostics Vital Signs (24Hr): Vital Signs - 24 hr 09/27/21 18:00 Temperature 97.4 F Pulse Rate 84 Blood Pressure 123/72 Pulse Oximetry 99 BMI result Body Mass Index 16.9 Labs Results: 09/25/21 08:47 Medications Medications Current Medications Acetaminophen (Acetaminophen 325 Mg Tablet) 650 mg PO Q6H PRN PRN Reason: HEADACHE/MILD PAIN Al Hydroxide/Mg Hydroxide (Magnesium Hydrox/Alum Hydrox 30 Ml Oral.Susp) 30 ml PO Q6H PRN PRN Reason: Heartburn/Nausea Bethanechol Chloride (Bethanechol Chloride 25 Mg Tablet) 25 mg PO TIDAC [facility] Last Admin: 09/27/21 16:23 Dose: 25 mg Documented by: Bethanechol Chloride (Bethanechol Chloride 25 Mg Tablet) 25 mg PO DAILY PRN PRN Reason: if misses a dose Last Admin: 09/27/21 15:01 Dose: 25 mg Documented by: Clonazepam (Clonazepam 1 Mg Tablet) 2 mg PO BEDTIME [facility] Last Admin: 09/27/21 22:03 Dose: 2 mg Documented by: Clonidine HCl (Clonidine Hcl 0.1 Mg Tablet) 0.1 mg PO TID PRN; Protocol PRN Reason: for daytime anxiety and bedtime hyperarousal Diphenhydramine HCl (Diphenhydramine Hcl 25 Mg Tablet) 25 mg PO BEDTIME [facility] Last Admin: 09/27/21 22:04 Dose: 25 mg Documented by: Duloxetine HCl (Duloxetine Hcl 30 Mg Capsule.Dr) 90 mg PO DAILY [facility] Last Admin: 09/27/21 08:40 Dose: 90 mg Documented by: Fluoxetine HCl (Fluoxetine Hcl 20 Mg Capsule) 20 mg PO DAILY [facility] Last Admin: 09/27/21 08:40 Dose: 20 mg Documented by: Gabapentin (Gabapentin 400 Mg Capsule) 400 mg PO DAILY PRN PRN Reason: BREAKTHROUGH NEUROPATHIC PAIN Gabapentin (Gabapentin 400 Mg Capsule) 800 mg PO BID [facility] Last Admin: 09/27/21 22:04 Dose: 800 mg Documented by: Hydroxyzine HCl (Hydroxyzine Hcl 25 Mg Tablet) 25 mg PO BID PRN PRN Reason: Anxiety Loperamide HCl (Loperamide Hcl 2 Mg Capsule) 4 mg PO Q4H PRN PRN Reason: Diarrhea Last Admin: 09/22/21 09:20 Dose: 4 mg Documented by: Lurasidone HCl (Lurasidone Hcl 40 Mg Tablet) 40 mg PO BEDTIME [facility] Last Admin: 09/27/21 22:03 Dose: 40 mg Documented by: Metoclopramide HCl (Metoclopramide Hcl 5 Mg Tablet) 5 mg PO TIDAC PRN PRN Reason: nausea and vomiting; motility Nicotine (Nicotine 21 Mg Patch.Td24) 21 mg TRANSDERMA DAILY PRN PRN Reason: nicotine cravings Nicotine Polacrilex (Nicotine Polacrilex 2 Mg Gum) 4 mg BUCCAL Q2H PRN PRN Reason: Nicotine Cravings Trazodone HCl (Trazodone Hcl 100 Mg Tablet) 100 mg PO BEDTIME [facility] Last Admin: 09/27/21 22:04 Dose: 100 mg Documented by: Zolpidem Tartrate (Zolpidem Tartrate 5 Mg Tablet) 5 mg PO BEDTIME [facility] Last Admin: 09/27/21 22:04 Dose: 5 mg Documented by: Allergies Allergies Allergy/AdvReac Type Severity Reaction Status Date / Time buspirone [From BuSpar] Allergy Swelling Verified 07/23/21 19:02 chlorpromazine Allergy Anaphylaxis Verified 07/23/21 19:02 [From Thorazine] lamotrigine [From Lamictal] Allergy Rash Verified 07/23/21 19:02 Sulfa (Sulfonamide Allergy Rash Verified 07/23/21 19:02 Antibiotics) linaclotide [From Linzess] AdvReac Abdominal Verified 07/23/21 19:02 Pain quetiapine [From Seroquel] AdvReac bad side Verified 07/23/21 19:02 effects' topiramate AdvReac Fogginess Verified 07/23/21 19:02 ziprasidone [From Geodon] AdvReac psychosis Verified 07/23/21 19:02 Assessment & Plan Assessment & Plan (1) Anorexia nervosa: Status: Acute Code(s): F50.00 - Anorexia nervosa, unspecified (2) Opioid abuse: Status: Acute Code(s): F11.10 - Opioid abuse, uncomplicated (3) Major depressive disorder, recurrent, moderate: Status: Acute Code(s): F33.1 - Major depressive disorder, recurrent, moderate (4) Anorexia nervosa, restricting type: Status: Acute Code(s): F50.01 - Anorexia nervosa, restricting type (5) PTSD (post-traumatic stress disorder): Status: Acute Code(s): F43.10 - Post-traumatic stress disorder, unspecified Plan Zuleyma is a 35 y.o. Female who carries a dx of PTSD, likely BPD, anorexia nervosa, polysubstance abuse, and MDD, recurrent episode. She presented to [facility] ED on 09/21/21 reporting passive SI, using crack cocaine in an attempt to lose weight. Pt has multiple co-morbid medical concerns including ostomy bag, urinary retention, and chronic pain. Has long hx of IPLOC, PHP, and detox. Has OP psych services, psychiatrist is Dr. Anand. 09/25 depressed, but no SI; starting to eat again; continue current med regimen 09/26 no medication changes Plan: CV, Q15 min safety checks Pt reports positive benefit on medications from most recent discharge from , does not want medication changes at this time. She has been struggling with her disordered eating behavior and has been unable to obtain placement at an eating disorder clinic/ program.? Monitor response to medications. Monitor for safety in the milieu. Discharge on stabilization. Patient seen. Chart reviewed. Discussed with team. Obtain collateral contact info as needed I spent minutes with the patient and/or on the patient floor today, greater than?50% of which was spent counseling/coordinating care. Reason for contiued inpatient stay Substantial Risk for: harm to self, rapid decompensation and med/psych decompensation
[2021-09-26 20:00] VITALS: BP 120/75; PULSE 86; TEMP 36.8; O2SAT 97
[2021-09-26] MEDS: diphenhydrAMINE HCL 25 MG TABLET PO (22:21)
[2021-09-26] MEDS: Lurasidone HCl 40 MG TABLET PO (22:21)
[2021-09-26] MEDS: traZODone HCL 100 MG TABLET PO (22:22)
[2021-09-26] MEDS: clonazePAM 1 MG TABLET 2 MG PO ×2 (22:22→22:35)
[2021-09-26] MEDS: Zolpidem Tartrate 5 MG TABLET PO ×2 (22:23→22:36)
[2021-09-27 06:00] VITALS: BP 115/56; PULSE 65; RESP 16; TEMP 36.3; O2SAT 97
[2021-09-27] MEDS: Gabapentin 400 MG CAPSULE 800 MG PO ×2 (08:35→22:04)
[2021-09-27] MEDS: Bethanechol Chloride 25 MG TABLET PO ×3 (08:39→16:23)
[2021-09-27] MEDS: FLUoxetine HCl 20 MG CAPSULE PO (08:40)
[2021-09-27] MEDS: DULoxetine HCl 30 MG CAPSULE.DR 90 MG PO (08:40)
--- NOTE | 2021-09-27 17:47 | HO.PSYCHPN ---
Subjective Subjective Date of Service: 09/27/21 Reason For Visit: depression/SI Subjective Notes: Salazar Warning and Conditional Voluntary Interim History: Patient seen and discussed with team. Patient evaluated today and upon interview she reports she has been sleeping all day today, has felt really tired, slept well last night. Says she never naps but her body has felt exhausted. Says groups have been helpful, I remember that i'm a person who has knowledge and skills. Makes me miss me. Says right now im not me, says disordered eating thoughts can be consuming. She is trying to do positive self talk. In the milieu, patient is safe in behavior. Denies SI/SIB/HI upon inquiry. Denies irritability or assaultive ideation. Says she feels safe. Medication Compliance: Yes Side effects from medications: No Attending Groups: Intermittent Review of Systems Acute medical concerns: No Medical Review of Systems: unchanged Mental Status Exam Mental Status Exam Narrative: A&O. Pt is frail appearing, well groomed with good hygiene. Good eye contact, attentive. No Tics or Tremors. No abnormal involuntary movements. Calm, cooperative, engaged. Non-pressured speech, spontaneous with regular rate and rhythm, normal volume and prosody. No prolonged speech latency or dysarthria. Mood is ?tired,? affect is calmer. Denies SI/SIB/HI upon inquiry. Denies A/VH or delusional thought content. Thoughts are coherent, organized. No known cognitive or memory impairment. Insight/ Judgment impaired Diagnostics Vital Signs (24Hr): Vital Signs - 24 hr 09/27/21 18:00 09/28/21 06:00 Temperature 97.4 F 98.2 F Pulse Rate 84 72 Blood Pressure 123/72 110/58 L Pulse Oximetry 99 98 BMI result Body Mass Index 16.9 Labs Results: 09/25/21 08:47 Medications Medications Current Medications Acetaminophen (Acetaminophen 325 Mg Tablet) 650 mg PO Q6H PRN PRN Reason: HEADACHE/MILD PAIN Al Hydroxide/Mg Hydroxide (Magnesium Hydrox/Alum Hydrox 30 Ml Oral.Susp) 30 ml PO Q6H PRN PRN Reason: Heartburn/Nausea Bethanechol Chloride (Bethanechol Chloride 25 Mg Tablet) 25 mg PO TIDAC [facility] Last Admin: 09/28/21 08:28 Dose: 25 mg Documented by: Bethanechol Chloride (Bethanechol Chloride 25 Mg Tablet) 25 mg PO DAILY PRN PRN Reason: if misses a dose Last Admin: 09/27/21 15:01 Dose: 25 mg Documented by: Clonazepam (Clonazepam 1 Mg Tablet) 2 mg PO BEDTIME [facility] Last Admin: 09/27/21 22:03 Dose: 2 mg Documented by: Clonidine HCl (Clonidine Hcl 0.1 Mg Tablet) 0.1 mg PO TID PRN; Protocol PRN Reason: for daytime anxiety and bedtime hyperarousal Diphenhydramine HCl (Diphenhydramine Hcl 25 Mg Tablet) 25 mg PO BEDTIME [facility] Last Admin: 09/27/21 22:04 Dose: 25 mg Documented by: Duloxetine HCl (Duloxetine Hcl 30 Mg Capsule.Dr) 90 mg PO DAILY [facility] Last Admin: 09/28/21 08:27 Dose: 90 mg Documented by: Fluoxetine HCl (Fluoxetine Hcl 20 Mg Capsule) 20 mg PO DAILY [facility] Last Admin: 09/28/21 08:28 Dose: 20 mg Documented by: Gabapentin (Gabapentin 400 Mg Capsule) 400 mg PO DAILY PRN PRN Reason: BREAKTHROUGH NEUROPATHIC PAIN Gabapentin (Gabapentin 400 Mg Capsule) 800 mg PO BID [facility] Last Admin: 09/28/21 08:28 Dose: 800 mg Documented by: Hydroxyzine HCl (Hydroxyzine Hcl 25 Mg Tablet) 25 mg PO BID PRN PRN Reason: Anxiety Loperamide HCl (Loperamide Hcl 2 Mg Capsule) 4 mg PO Q4H PRN PRN Reason: Diarrhea Last Admin: 09/22/21 09:20 Dose: 4 mg Documented by: Lurasidone HCl (Lurasidone Hcl 40 Mg Tablet) 40 mg PO BEDTIME [facility] Last Admin: 09/27/21 22:03 Dose: 40 mg Documented by: Metoclopramide HCl (Metoclopramide Hcl 5 Mg Tablet) 5 mg PO TIDAC PRN PRN Reason: nausea and vomiting; motility Nicotine (Nicotine 21 Mg Patch.Td24) 21 mg TRANSDERMA DAILY PRN PRN Reason: nicotine cravings Nicotine Polacrilex (Nicotine Polacrilex 2 Mg Gum) 4 mg BUCCAL Q2H PRN PRN Reason: Nicotine Cravings Trazodone HCl (Trazodone Hcl 100 Mg Tablet) 100 mg PO BEDTIME [facility] Last Admin: 09/27/21 22:04 Dose: 100 mg Documented by: Zolpidem Tartrate (Zolpidem Tartrate 5 Mg Tablet) 5 mg PO BEDTIME [facility] Last Admin: 09/27/21 22:04 Dose: 5 mg Documented by: Allergies Allergies Allergy/AdvReac Type Severity Reaction Status Date / Time buspirone [From BuSpar] Allergy Swelling Verified 07/23/21 19:02 chlorpromazine Allergy Anaphylaxis Verified 07/23/21 19:02 [From Thorazine] lamotrigine [From Lamictal] Allergy Rash Verified 07/23/21 19:02 Sulfa (Sulfonamide Allergy Rash Verified 07/23/21 19:02 Antibiotics) linaclotide [From Linzess] AdvReac Abdominal Verified 07/23/21 19:02 Pain quetiapine [From Seroquel] AdvReac bad side Verified 07/23/21 19:02 effects' topiramate AdvReac Fogginess Verified 07/23/21 19:02 ziprasidone [From Geodon] AdvReac psychosis Verified 07/23/21 19:02 Assessment & Plan Assessment & Plan (1) Anorexia nervosa: Status: Acute Code(s): F50.00 - Anorexia nervosa, unspecified (2) Opioid abuse: Status: Acute Code(s): F11.10 - Opioid abuse, uncomplicated (3) Major depressive disorder, recurrent, moderate: Status: Acute Code(s): F33.1 - Major depressive disorder, recurrent, moderate (4) Anorexia nervosa, restricting type: Status: Acute Code(s): F50.01 - Anorexia nervosa, restricting type (5) PTSD (post-traumatic stress disorder): Status: Acute Code(s): F43.10 - Post-traumatic stress disorder, unspecified Plan Zuleyma is a 35 y.o. Female who carries a dx of PTSD, likely BPD, anorexia nervosa, polysubstance abuse, and MDD, recurrent episode. She presented to [facility] on 09/21/21 reporting passive SI, using crack cocaine in an attempt to lose weight. Pt has multiple co-morbid medical concerns including ostomy bag, urinary retention, and chronic pain. Has long hx of IPLOC, PHP, and detox. Has OP psych services, psychiatrist is Dr. Anand. 09/25 depressed, but no SI; starting to eat again; continue current med regimen 09/26 no medication changes 09/27: continue to engage in positive self talk Plan: CV, Q15 min safety checks Pt reports positive benefit on medications from most recent discharge from [facility], does not want medication changes at this time. She has been struggling with her disordered eating behavior and has been unable to obtain placement at an eating disorder clinic/ program.? Monitor response to medications. Monitor for safety in the milieu. Discharge on stabilization. Patient seen. Chart reviewed. Discussed with team. Obtain collateral contact info as needed I spent minutes with the patient and/or on the patient floor today, greater than?50% of which was spent counseling/coordinating care. Reason for contiued inpatient stay Substantial Risk for: harm to self, rapid decompensation and med/psych decompensation
[2021-09-27 18:00] VITALS: BP 123/72; PULSE 84; TEMP 36.3; O2SAT 99
[2021-09-27] MEDS: clonazePAM 1 MG TABLET 2 MG PO (22:03)
[2021-09-27] MEDS: Lurasidone HCl 40 MG TABLET PO (22:03)
[2021-09-27] MEDS: traZODone HCL 100 MG TABLET PO (22:04)
[2021-09-27] MEDS: Zolpidem Tartrate 5 MG TABLET PO (22:04)
[2021-09-27] MEDS: diphenhydrAMINE HCL 25 MG TABLET PO (22:04)
[2021-09-28 06:00] VITALS: BP 110/58; PULSE 72; TEMP 36.8; O2SAT 98
[2021-09-28] MEDS: DULoxetine HCl 30 MG CAPSULE.DR 90 MG PO (08:27)
[2021-09-28] MEDS: Bethanechol Chloride 25 MG TABLET PO ×3 (08:28→16:43)
[2021-09-28] MEDS: Gabapentin 400 MG CAPSULE 800 MG PO ×2 (08:28→22:23)
[2021-09-28] MEDS: FLUoxetine HCl 20 MG CAPSULE PO (08:28)
--- NOTE | 2021-09-28 16:30 | P.PNPSI_ITS ---
Subjective Subjective Date of Service: 09/28/21 Reason For Visit: depression/SI Interim History: pt reports she's feeling sluggish, mentally and physically from recent poor nutrition. However she feels her mood improving. Pt is eating what she orders; though she orders little, she is committed to getting healthy. She continues to gee her unhealthy, thought disordered thinking about eating and wt gain. Patient shared her struggles with trying to discern between healthy thoughts about food and unhealthy ones. Mental Status Exam Mental Status Exam Narrative: A&O. Pt is frail appearing, well groomed with good hygiene. Good eye contact, attentive. No Tics or Tremors. No abnormal involuntary movements. Calm, cooperative, engaged. Non-pressured speech, spontaneous with regular rate and rhythm, normal volume and prosody. No prolonged speech latency or dysarthria. Mood is ?tired,? affect is calmer. Denies SI/SIB/HI upon inquiry. Denies A/VH or delusional thought content. Thoughts are coherent, organized. No known cognitive or memory impairment. Insight/ Judgment impaired Diagnostics Vital Signs (24Hr): Vital Signs - 24 hr 09/27/21 18:00 09/28/21 06:00 Temperature 97.4 F 98.2 F Pulse Rate 84 72 Blood Pressure 123/72 110/58 L Pulse Oximetry 99 98 BMI result Body Mass Index 16.9 Labs Results: 09/25/21 08:47 Medications Medications Current Medications Acetaminophen (Acetaminophen 325 Mg Tablet) 650 mg PO Q6H PRN PRN Reason: HEADACHE/MILD PAIN Al Hydroxide/Mg Hydroxide (Magnesium Hydrox/Alum Hydrox 30 Ml Oral.Susp) 30 ml PO Q6H PRN PRN Reason: Heartburn/Nausea Bethanechol Chloride (Bethanechol Chloride 25 Mg Tablet) 25 mg PO TIDAC [facility] Last Admin: 09/28/21 11:59 Dose: 25 mg Documented by: Bethanechol Chloride (Bethanechol Chloride 25 Mg Tablet) 25 mg PO DAILY PRN PRN Reason: if misses a dose Last Admin: 09/27/21 15:01 Dose: 25 mg Documented by: Clonazepam (Clonazepam 1 Mg Tablet) 2 mg PO BEDTIME [facility] Last Admin: 09/27/21 22:03 Dose: 2 mg Documented by: Clonidine HCl (Clonidine Hcl 0.1 Mg Tablet) 0.1 mg PO TID PRN; Protocol PRN Reason: for daytime anxiety and bedtime hyperarousal Diphenhydramine HCl (Diphenhydramine Hcl 25 Mg Tablet) 25 mg PO BEDTIME [facility] Last Admin: 09/27/21 22:04 Dose: 25 mg Documented by: Duloxetine HCl (Duloxetine Hcl 30 Mg Capsule.) 90 mg PO DAILY [facility] Last Admin: 09/28/21 08:27 Dose: 90 mg Documented by: Fluoxetine HCl (Fluoxetine Hcl 20 Mg Capsule) 20 mg PO DAILY [facility] Last Admin: 09/28/21 08:28 Dose: 20 mg Documented by: Gabapentin (Gabapentin 400 Mg Capsule) 400 mg PO DAILY PRN PRN Reason: BREAKTHROUGH NEUROPATHIC PAIN Gabapentin (Gabapentin 400 Mg Capsule) 800 mg PO BID [facility] Last Admin: 09/28/21 08:28 Dose: 800 mg Documented by: Hydroxyzine HCl (Hydroxyzine Hcl 25 Mg Tablet) 25 mg PO BID PRN PRN Reason: Anxiety Loperamide HCl (Loperamide Hcl 2 Mg Capsule) 4 mg PO Q4H PRN PRN Reason: Diarrhea Last Admin: 09/22/21 09:20 Dose: 4 mg Documented by: Lurasidone HCl (Lurasidone Hcl 40 Mg Tablet) 40 mg PO BEDTIME [facility] Last Admin: 09/27/21 22:03 Dose: 40 mg Documented by: Metoclopramide HCl (Metoclopramide Hcl 5 Mg Tablet) 5 mg PO TIDAC PRN PRN Reason: nausea and vomiting; motility Nicotine (Nicotine 21 Mg Patch.Td24) 21 mg TRANSDERMA DAILY PRN PRN Reason: nicotine cravings Nicotine Polacrilex (Nicotine Polacrilex 2 Mg Gum) 4 mg BUCCAL Q2H PRN PRN Reason: Nicotine Cravings Trazodone HCl (Trazodone Hcl 100 Mg Tablet) 100 mg PO BEDTIME [facility] Last Admin: 09/27/21 22:04 Dose: 100 mg Documented by: Zolpidem Tartrate (Zolpidem Tartrate 5 Mg Tablet) 5 mg PO BEDTIME [facility] Last Admin: 09/27/21 22:04 Dose: 5 mg Documented by: Allergies Allergies Allergy/AdvReac Type Severity Reaction Status Date / Time buspirone [From BuSpar] Allergy Swelling Verified 07/23/21 19:02 chlorpromazine Allergy Anaphylaxis Verified 07/23/21 19:02 [From Thorazine] lamotrigine [From Lamictal] Allergy Rash Verified 07/23/21 19:02 Sulfa (Sulfonamide Allergy Rash Verified 07/23/21 19:02 Antibiotics) linaclotide [From Linzess] AdvReac Abdominal Verified 07/23/21 19:02 Pain quetiapine [From Seroquel] AdvReac bad side Verified 07/23/21 19:02 effects' topiramate AdvReac Fogginess Verified 07/23/21 19:02 ziprasidone [From Geodon] AdvReac psychosis Verified 07/23/21 19:02 Assessment & Plan Assessment & Plan (1) Anorexia nervosa: Status: Acute Code(s): F50.00 - Anorexia nervosa, unspecified (2) Opioid abuse: Status: Acute Code(s): F11.10 - Opioid abuse, uncomplicated (3) Major depressive disorder, recurrent, moderate: Status: Acute Code(s): F33.1 - Major depressive disorder, recurrent, moderate (4) Anorexia nervosa, restricting type: Status: Acute Code(s): F50.01 - Anorexia nervosa, restricting type (5) PTSD (post-traumatic stress disorder): Status: Acute Code(s): F43.10 - Post-traumatic stress disorder, unspecified Plan Zuleyma is a 35 y.o. Female who carries a dx of PTSD, likely BPD, anorexia nervosa, polysubstance abuse, and MDD, recurrent episode. She presented to [facility] on 09/21/21 reporting passive SI, using crack cocaine in an attempt to lose weight. Pt has multiple co-morbid medical concerns including ostomy bag, urinary retention, and chronic pain. Has long hx of IPLOC, PHP, and detox. Has OP psych services, psychiatrist is Dr. Anand. 09/25 depressed, but no SI; starting to eat again; continue current med regimen 09/26 no medication changes 09/27: continue to engage in positive self talk Plan: CV, Q15 min safety checks Pt reports positive benefit on medications from most recent discharge from , does not want medication changes at this time. She has been struggling with her disordered eating behavior and has been unable to obtain placement at an eating disorder clinic/ program.? Monitor response to medications. Monitor for safety in the milieu. Discharge on stabilization. Patient seen. Chart reviewed. Discussed with team. Obtain collateral contact info as needed I spent minutes with the patient and/or on the patient floor today, greater than?50% of which was spent counseling/coordinating care. Patient educated on: diagnosis Informed Consent: understands Reason for contiued inpatient stay Substantial Risk for: rapid decompensation
[2021-09-28] MEDS: Acetaminophen 325 MG TABLET 650 MG PO (18:36)
[2021-09-28 19:10] VITALS: BP 110/77; PULSE 91; TEMP 36.9; O2SAT 100
[2021-09-28 22:22] VITALS: BP 118/74; PULSE 86; RESP 18; TEMP 36.8; O2SAT 98
[2021-09-28] MEDS: Zolpidem Tartrate 5 MG TABLET PO (22:23)
[2021-09-28] MEDS: cloNIDine HCL 0.1 MG TABLET PO (22:23)
[2021-09-28] MEDS: clonazePAM 1 MG TABLET 2 MG PO (22:23)
[2021-09-28] MEDS: Lurasidone HCl 40 MG TABLET PO (22:23)
[2021-09-28] MEDS: traZODone HCL 100 MG TABLET PO (22:23)
[2021-09-28] MEDS: diphenhydrAMINE HCL 25 MG TABLET PO (22:23)
[2021-09-29 06:00] VITALS: BP 112/72; PULSE 78; RESP 18; TEMP 36.7; O2SAT 99
[2021-09-29] MEDS: Gabapentin 400 MG CAPSULE 800 MG PO ×2 (08:34→22:51)
[2021-09-29] MEDS: FLUoxetine HCl 20 MG CAPSULE PO (08:34)
[2021-09-29] MEDS: Bethanechol Chloride 25 MG TABLET PO ×2 (08:34→12:16)
[2021-09-29] MEDS: DULoxetine HCl 30 MG CAPSULE.DR 90 MG PO (08:34)
--- NOTE | 2021-09-29 19:40 | P.PNPSI_ITS ---
Subjective Subjective Date of Service: 09/29/21 Reason For Visit: depression/SI Interim History: pt reports mood is a little better and her affect is brighter. She continues to eat and eat an extra protein shake today. Pt feels that tiredness and sluggish thinking are getting better. Pt talked about some hardships with her parents and their intermittent understanding with her struggles; talked about her sensitivity toward illeostomy. with her Mental Status Exam Mental Status Exam Narrative: A&O. Pt is frail appearing, well groomed with good hygiene. Good eye contact, attentive. No Tics or Tremors. No abnormal involuntary movements. Calm, cooperative, engaged. Non-pressured speech, spontaneous with regular rate and rhythm, normal volume and prosody. No prolonged speech latency or dysarthria. Mood is ?a little better,? affect is congruent, brighter. Denies SI/SIB/HI upon inquiry. Denies A/VH or delusional thought content. Thoughts are coherent, organized. No known cognitive or memory impairment. Insight/ Judgment impaired but improving Diagnostics Vital Signs (24Hr): Vital Signs - 24 hr 09/28/21 22:22 09/29/21 06:00 Temperature 98.2 F 98.0 F Pulse Rate 86 78 Respiratory Rate 18 18 Blood Pressure 118/74 112/72 Pulse Oximetry 98 99 BMI result Body Mass Index 16.9 Labs Results: 09/25/21 08:47 Medications Medications Current Medications Acetaminophen (Acetaminophen 325 Mg Tablet) 650 mg PO Q6H PRN PRN Reason: HEADACHE/MILD PAIN Last Admin: 09/28/21 18:36 Dose: 650 mg Documented by: Al Hydroxide/Mg Hydroxide (Magnesium Hydrox/Alum Hydrox 30 Ml Oral.Susp) 30 ml PO Q6H PRN PRN Reason: Heartburn/Nausea Bethanechol Chloride (Bethanechol Chloride 25 Mg Tablet) 25 mg PO TIDAC [facility] Last Admin: 09/29/21 12:16 Dose: 25 mg Documented by: Bethanechol Chloride (Bethanechol Chloride 25 Mg Tablet) 25 mg PO DAILY PRN PRN Reason: if misses a dose Last Admin: 09/27/21 15:01 Dose: 25 mg Documented by: Clonazepam (Clonazepam 1 Mg Tablet) 2 mg PO BEDTIME [facility] Last Admin: 09/28/21 22:23 Dose: 2 mg Documented by: Clonidine HCl (Clonidine Hcl 0.1 Mg Tablet) 0.1 mg PO TID PRN; Protocol PRN Reason: for daytime anxiety and bedtime hyperarousal Clonidine HCl (Clonidine Hcl 0.1 Mg Tablet) 0.1 mg PO BEDTIME [facility]; Protocol Last Admin: 09/28/21 22:23 Dose: 0.1 mg Documented by: Diphenhydramine HCl (Diphenhydramine Hcl 25 Mg Tablet) 25 mg PO BEDTIME [facility] Last Admin: 09/28/21 22:23 Dose: 25 mg Documented by: Duloxetine HCl (Duloxetine Hcl 30 Mg Capsule.Dr) 90 mg PO DAILY [facility] Last Admin: 09/29/21 08:34 Dose: 90 mg Documented by: Fluoxetine HCl (Fluoxetine Hcl 20 Mg Capsule) 20 mg PO DAILY [facility] Last Admin: 09/29/21 08:34 Dose: 20 mg Documented by: Gabapentin (Gabapentin 400 Mg Capsule) 400 mg PO DAILY PRN PRN Reason: BREAKTHROUGH NEUROPATHIC PAIN Gabapentin (Gabapentin 400 Mg Capsule) 800 mg PO BID [facility] Last Admin: 09/29/21 08:34 Dose: 800 mg Documented by: Hydroxyzine HCl (Hydroxyzine Hcl 25 Mg Tablet) 25 mg PO BID PRN PRN Reason: Anxiety Loperamide HCl (Loperamide Hcl 2 Mg Capsule) 4 mg PO Q4H PRN PRN Reason: Diarrhea Last Admin: 09/22/21 09:20 Dose: 4 mg Documented by: Lurasidone HCl (Lurasidone Hcl 40 Mg Tablet) 40 mg PO BEDTIME [facility] Last Admin: 09/28/21 22:23 Dose: 40 mg Documented by: Metoclopramide HCl (Metoclopramide Hcl 5 Mg Tablet) 5 mg PO TIDAC PRN PRN Reason: nausea and vomiting; motility Nicotine (Nicotine 21 Mg Patch.Td24) 21 mg TRANSDERMA DAILY PRN PRN Reason: nicotine cravings Nicotine Polacrilex (Nicotine Polacrilex 2 Mg Gum) 4 mg BUCCAL Q2H PRN PRN Reason: Nicotine Cravings Trazodone HCl (Trazodone Hcl 100 Mg Tablet) 100 mg PO BEDTIME [facility] Last Admin: 09/28/21 22:23 Dose: 100 mg Documented by: Zolpidem Tartrate (Zolpidem Tartrate 5 Mg Tablet) 5 mg PO BEDTIME [facility] Last Admin: 09/28/21 22:23 Dose: 5 mg Documented by: Allergies Allergies Allergy/AdvReac Type Severity Reaction Status Date / Time buspirone [From BuSpar] Allergy Swelling Verified 07/23/21 19:02 chlorpromazine Allergy Anaphylaxis Verified 07/23/21 19:02 [From Thorazine] lamotrigine [From Lamictal] Allergy Rash Verified 07/23/21 19:02 Sulfa (Sulfonamide Allergy Rash Verified 07/23/21 19:02 Antibiotics) linaclotide [From Linzess] AdvReac Abdominal Verified 07/23/21 19:02 Pain quetiapine [From Seroquel] AdvReac bad side Verified 07/23/21 19:02 effects' topiramate AdvReac Fogginess Verified 07/23/21 19:02 ziprasidone [From Geodon] AdvReac psychosis Verified 07/23/21 19:02 Assessment & Plan Assessment & Plan (1) Anorexia nervosa: Status: Acute Code(s): F50.00 - Anorexia nervosa, unspecified (2) Opioid abuse: Status: Acute Code(s): F11.10 - Opioid abuse, uncomplicated (3) Major depressive disorder, recurrent, moderate: Status: Acute Code(s): F33.1 - Major depressive disorder, recurrent, moderate (4) Anorexia nervosa, restricting type: Status: Acute Code(s): F50.01 - Anorexia nervosa, restricting type (5) PTSD (post-traumatic stress disorder): Status: Acute Code(s): F43.10 - Post-traumatic stress disorder, unspecified Plan Zuleyma is a 35 y.o. Female who carries a dx of PTSD, likely BPD, anorexia nervosa, polysubstance abuse, and MDD, recurrent episode. She [place] [facility] [place] reporting passive SI, using crack cocaine in an attempt to lose weight. Pt has multiple co-morbid medical concerns including ostomy bag, urinary retention, and chronic pain. Has long hx of IPLOC, PHP, and detox. Has OP psych services, psychiatrist is Dr. Anand. 09/25 depressed, but no SI; starting to eat again; continue current med regimen 09/26 no medication changes 09/27: continue to engage in positive self talk 09/29 pt remains engaged in treatment; eating more and making healthy choices; discussed outpt IOP and cornelio. No changes to regimen. Plan: CV, Q15 min safety checks Pt reports positive benefit on medications from most recent discharge from , does not want medication changes at this time. She has been struggling with her disordered eating behavior and has been unable to obtain placement at an eating disorder clinic/ program.? Monitor response to medications. Monitor for safety in the milieu. Discharge on stabilization. Patient seen. Chart reviewed. Discussed with team. Obtain collateral contact info as needed I spent minutes with the patient and/or on the patient floor today, greater than?50% of which was spent counseling/coordinating care. Patient educated on: diagnosis and therapeutic strategies Informed Consent: understands Reason for contiued inpatient stay Substantial Risk for: rapid decompensation
[2021-09-29 22:45] VITALS: BP 116/60; PULSE 76; TEMP 35.9; O2SAT 100
[2021-09-29] MEDS: cloNIDine HCL 0.1 MG TABLET PO (22:51)
[2021-09-29] MEDS: diphenhydrAMINE HCL 25 MG TABLET PO (22:51)
[2021-09-29] MEDS: Zolpidem Tartrate 5 MG TABLET PO (22:52)
[2021-09-29] MEDS: Lurasidone HCl 40 MG TABLET PO (22:52)
[2021-09-29] MEDS: clonazePAM 1 MG TABLET 2 MG PO (22:52)
[2021-09-29] MEDS: traZODone HCL 100 MG TABLET PO (22:52)
[2021-09-30 06:00] VITALS: BP 107/53; PULSE 68; RESP 15; TEMP 37.3; O2SAT 94
[2021-09-30] MEDS: Gabapentin 400 MG CAPSULE 800 MG PO ×2 (08:36→21:31)
[2021-09-30] MEDS: FLUoxetine HCl 20 MG CAPSULE PO (08:36)
[2021-09-30] MEDS: DULoxetine HCl 30 MG CAPSULE.DR 90 MG PO (08:36)
[2021-09-30] MEDS: Bethanechol Chloride 25 MG TABLET PO ×3 (08:36→16:01)
[2021-09-30] MEDS: Acetaminophen 325 MG TABLET 650 MG PO (14:45)
[2021-09-30] MEDS: Metoclopramide HCl 5 MG TABLET PO (14:45)
[2021-09-30] MEDS: hydrOXYzine HCL 25 MG TABLET PO (16:01)
--- NOTE | 2021-09-30 18:24 | HO.PSYCHPN ---
Subjective Subjective Date of Service: 09/30/21 Reason For Visit: depression/SI Interim History: Patient reports having a difficult day, feeling fat and physically uncomfortable. She had said she vomited twice today and has had some leakage from her rectum which she explains is intermittently chronic given her ileostomy and weak pelvic floor. Patient says that she is coping with it however. She is still eating and feels that her healthy perspective on making good food choices is dominating her unhealthy perspective. Patient talked about discharge and feels that if there is an IOP she can attend while waiting to get into [place], this will prove very stabilizing and help her remain sober. No SI Mental Status Exam Mental Status Exam Narrative: A&O. Pt is frail appearing, well groomed with good hygiene. Good eye contact, attentive. No Tics or Tremors. No abnormal involuntary movements. Calm, cooperative, engaged. Non-pressured speech, spontaneous with regular rate and rhythm, normal volume and prosody. No prolonged speech latency or dysarthria. Mood is ?crappy? affect is congruent, some tearfulness. Denies SI/SIB/HI upon inquiry. Denies A/VH or delusional thought content. Thoughts are coherent, organized. No known cognitive or memory impairment. Insight/ Judgment impaired but improving Diagnostics Vital Signs (24Hr): Vital Signs - 24 hr 09/29/21 22:45 09/30/21 06:00 Temperature 96.6 F L 99.2 F Pulse Rate 76 68 Respiratory Rate 15 Blood Pressure 116/60 107/53 L Pulse Oximetry 100 94 BMI result Body Mass Index 16.9 Labs Results: 09/25/21 08:47 Medications Medications Current Medications Acetaminophen (Acetaminophen 325 Mg Tablet) 650 mg PO Q6H PRN PRN Reason: HEADACHE/MILD PAIN Last Admin: 09/30/21 14:45 Dose: 650 mg Documented by: Al Hydroxide/Mg Hydroxide (Magnesium Hydrox/Alum Hydrox 30 Ml Oral.Susp) 30 ml PO Q6H PRN PRN Reason: Heartburn/Nausea Bethanechol Chloride (Bethanechol Chloride 25 Mg Tablet) 25 mg PO TIDAC AMELIA Last Admin: 09/30/21 16:01 Dose: 25 mg Documented by: Bethanechol Chloride (Bethanechol Chloride 25 Mg Tablet) 25 mg PO DAILY PRN PRN Reason: if misses a dose Last Admin: 09/27/21 15:01 Dose: 25 mg Documented by: Clonazepam (Clonazepam 1 Mg Tablet) 2 mg PO BEDTIME [facility]ELIA Last Admin: 09/29/21 22:52 Dose: 2 mg Documented by: Clonidine HCl (Clonidine Hcl 0.1 Mg Tablet) 0.1 mg PO TID PRN; Protocol PRN Reason: for daytime anxiety and bedtime hyperarousal Clonidine HCl (Clonidine Hcl 0.1 Mg Tablet) 0.1 mg PO BEDTIME AMELIA; Protocol Last Admin: 09/29/21 22:51 Dose: 0.1 mg Documented by: Diphenhydramine HCl (Diphenhydramine Hcl 25 Mg Tablet) 25 mg PO BEDTIME [facility]ELIA Last Admin: 09/29/21 22:51 Dose: 25 mg Documented by: Duloxetine HCl (Duloxetine Hcl 30 Mg Capsule.Dr) 90 mg PO DAILY [facility]IA Last Admin: 09/30/21 08:36 Dose: 90 mg Documented by: Fluoxetine HCl (Fluoxetine Hcl 20 Mg Capsule) 20 mg PO DAILY [facility]ELIA Last Admin: 09/30/21 08:36 Dose: 20 mg Documented by: Gabapentin (Gabapentin 400 Mg Capsule) 400 mg PO DAILY PRN PRN Reason: BREAKTHROUGH NEUROPATHIC PAIN Gabapentin (Gabapentin 400 Mg Capsule) 800 mg PO BID AMELIA Last Admin: 09/30/21 08:36 Dose: 800 mg Documented by: Hydroxyzine HCl (Hydroxyzine Hcl 25 Mg Tablet) 25 mg PO BID PRN PRN Reason: Anxiety Last Admin: 09/30/21 16:01 Dose: 25 mg Documented by: Loperamide HCl (Loperamide Hcl 2 Mg Capsule) 4 mg PO Q4H PRN PRN Reason: Diarrhea Last Admin: 09/22/21 09:20 Dose: 4 mg Documented by: Lurasidone HCl (Lurasidone Hcl 40 Mg Tablet) 40 mg PO BEDTIME AMELIA Last Admin: 09/29/21 22:52 Dose: 40 mg Documented by: Metoclopramide HCl (Metoclopramide Hcl 5 Mg Tablet) 5 mg PO TIDAC PRN PRN Reason: nausea and vomiting; motility Last Admin: 09/30/21 14:45 Dose: 5 mg Documented by: Nicotine (Nicotine 21 Mg Patch.Td24) 21 mg TRANSDERMA DAILY PRN PRN Reason: nicotine cravings Nicotine Polacrilex (Nicotine Polacrilex 2 Mg Gum) 4 mg BUCCAL Q2H PRN PRN Reason: Nicotine Cravings Trazodone HCl (Trazodone Hcl 100 Mg Tablet) 100 mg PO BEDTIME [facility] Last Admin: 09/29/21 22:52 Dose: 100 mg Documented by: Zolpidem Tartrate (Zolpidem Tartrate 5 Mg Tablet) 5 mg PO BEDTIME [facility] Last Admin: 09/29/21 22:52 Dose: 5 mg Documented by: Allergies Allergies Allergy/AdvReac Type Severity Reaction Status Date / Time buspirone [From BuSpar] Allergy Swelling Verified 07/23/21 19:02 chlorpromazine Allergy Anaphylaxis Verified 07/23/21 19:02 [From Thorazine] lamotrigine [From Lamictal] Allergy Rash Verified 07/23/21 19:02 Sulfa (Sulfonamide Allergy Rash Verified 07/23/21 19:02 Antibiotics) linaclotide [From Linzess] AdvReac Abdominal Verified 07/23/21 19:02 Pain quetiapine [From Seroquel] AdvReac bad side Verified 07/23/21 19:02 effects' topiramate AdvReac Fogginess Verified 07/23/21 19:02 ziprasidone [From Geodon] AdvReac psychosis Verified 07/23/21 19:02 Assessment & Plan Assessment & Plan (1) Anorexia nervosa: Status: Acute Code(s): F50.00 - Anorexia nervosa, unspecified (2) Opioid abuse: Status: Acute Code(s): F11.10 - Opioid abuse, uncomplicated (3) Major depressive disorder, recurrent, moderate: Status: Acute Code(s): F33.1 - Major depressive disorder, recurrent, moderate (4) Anorexia nervosa, restricting type: Status: Acute Code(s): F50.01 - Anorexia nervosa, restricting type (5) PTSD (post-traumatic stress disorder): Status: Acute Code(s): F43.10 - Post-traumatic stress disorder, unspecified Plan Zuleyma is a 35 y.o. Female who carries a dx of PTSD, likely BPD, anorexia nervosa, polysubstance abuse, and MDD, recurrent episode. She presented to [facility] ED on 09/21/21 reporting passive SI, using crack cocaine in an attempt to lose weight. Pt has multiple co-morbid medical concerns including ostomy bag, urinary retention, and chronic pain. Has long hx of IPLOC, PHP, and detox. Has OP psych services, psychiatrist is Dr. Anand. 09/25 depressed, but no SI; starting to eat again; continue current med regimen 09/26 no medication changes 09/27: continue to engage in positive self talk 09/29 pt remains engaged in treatment; eating more and making healthy choices; discussed outpt IOP and cornelio. No changes to regimen. 09/30 some nausea today, patient vomited twice, taking Reglan Plan: CV, Q15 min safety checks Pt reports positive benefit on medications from most recent discharge from , does not want medication changes at this time. She has been struggling with her disordered eating behavior and has been unable to obtain placement at an eating disorder clinic/ program.? Monitor response to medications. Monitor for safety in the milieu. Discharge on stabilization. Patient seen. Chart reviewed. Discussed with team. Obtain collateral contact info as needed I spent minutes with the patient and/or on the patient floor today, greater than?50% of which was spent counseling/coordinating care. Patient educated on: diagnosis Informed Consent: understands Reason for contiued inpatient stay Substantial Risk for: rapid decompensation and med/psych decompensation
[2021-09-30 19:02] VITALS: BP 114/74; PULSE 80; RESP 16; TEMP 36.2; O2SAT 100
[2021-09-30] MEDS: Ondansetron ODT 4 MG TAB.RAPDIS TRANSLINGU (19:02)
[2021-09-30] MEDS: clonazePAM 1 MG TABLET 2 MG PO (21:23)
[2021-09-30] MEDS: diphenhydrAMINE HCL 25 MG TABLET PO (21:23)
[2021-09-30] MEDS: Gabapentin 400 MG CAPSULE PO (21:23)
[2021-09-30] MEDS: Lurasidone HCl 40 MG TABLET PO (21:23)
[2021-09-30] MEDS: cloNIDine HCL 0.1 MG TABLET PO (21:24)
[2021-09-30] MEDS: traZODone HCL 100 MG TABLET PO (21:24)
[2021-09-30] MEDS: Zolpidem Tartrate 5 MG TABLET PO (21:24)
[2021-10-01 06:23] VITALS: BP 104/55; PULSE 50; RESP 16; TEMP 36.3; O2SAT 98
[2021-10-01] MEDS: Gabapentin 400 MG CAPSULE 800 MG PO ×2 (08:31→21:08)
[2021-10-01] MEDS: DULoxetine HCl 30 MG CAPSULE.DR 90 MG PO (08:31)
[2021-10-01] MEDS: Bethanechol Chloride 25 MG TABLET PO ×3 (08:32→16:06)
[2021-10-01] MEDS: FLUoxetine HCl 20 MG CAPSULE PO (08:32)
[2021-10-01] MEDS: Metoclopramide HCl 5 MG TABLET PO ×2 (08:34→16:12)
--- NOTE | 2021-10-01 10:29 | HO.PSYCHPN ---
Subjective Subjective Date of Service: 10/01/21 Reason For Visit: depression/SI Interim History: pt tearful today, struggling with worries and feeling vulnerable. Pt feel into near panic during session, overwhelmed with anxiety about her weight, her future, her sobriety...Pt struggling with negative self talk. She was able to see that her perspective is altered by anxiety. No suicidalilty at all and still resolved to stay safe. Pt feels she very much needs an [facility] to attend, to help her stay focused on treatment while waiting for [facility] admission (which will take about a month). Mental Status Exam Mental Status Exam Narrative: A&O. Pt is frail appearing, well groomed with good hygiene. Good eye contact, attentive. No Tics or Tremors. No abnormal involuntary movements. Behavior is tearful, cooperative and engaged. Non-pressured speech, spontaneous with regular rate and rhythm, normal volume and prosody. No prolonged speech latency or dysarthria. Mood is ?anxious? affect is congruent, tearfulness. Denies SI/SIB/HI upon inquiry. Denies A/VH or delusional thought content. Thoughts are coherent, organized. No known cognitive or memory impairment. Insight/ Judgment impaired but improving Diagnostics Vital Signs (24Hr): Vital Signs - 24 hr 09/30/21 19:02 10/01/21 06:23 Temperature 97.2 F 97.4 F Pulse Rate 80 50 Respiratory Rate 16 16 Blood Pressure 114/74 104/55 L Pulse Oximetry 100 98 BMI result Body Mass Index 16.9 Labs Results: 09/25/21 08:47 Medications Medications Current Medications Acetaminophen (Acetaminophen 325 Mg Tablet) 650 mg PO Q6H PRN PRN Reason: HEADACHE/MILD PAIN Last Admin: 09/30/21 14:45 Dose: 650 mg Documented by: Al Hydroxide/Mg Hydroxide (Magnesium Hydrox/Alum Hydrox 30 Ml Oral.Susp) 30 ml PO Q6H PRN PRN Reason: Heartburn/Nausea Bethanechol Chloride (Bethanechol Chloride 25 Mg Tablet) 25 mg PO TIDAC AMELIA Last Admin: 10/01/21 08:32 Dose: 25 mg Documented by: Bethanechol Chloride (Bethanechol Chloride 25 Mg Tablet) 25 mg PO DAILY PRN PRN Reason: if misses a dose Last Admin: 09/27/21 15:01 Dose: 25 mg Documented by: Clonazepam (Clonazepam 1 Mg Tablet) 2 mg PO BEDTIME [facility]EL[facility] Last Admin: 09/30/21 21:23 Dose: 2 mg Documented by: Clonidine HCl (Clonidine Hcl 0.1 Mg Tablet) 0.1 mg PO TID PRN; Protocol PRN Reason: for daytime anxiety and bedtime hyperarousal Clonidine HCl (Clonidine Hcl 0.1 Mg Tablet) 0.1 mg PO BEDTIME AMELIA; Protocol Last Admin: 09/30/21 21:24 Dose: 0.1 mg Documented by: Diphenhydramine HCl (Diphenhydramine Hcl 25 Mg Tablet) 25 mg PO BEDTIME AMELIA Last Admin: 09/30/21 21:23 Dose: 25 mg Documented by: Duloxetine HCl (Duloxetine Hcl 30 Mg Capsule.) 90 mg PO DAILY AMELIA Last Admin: 10/01/21 08:31 Dose: 90 mg Documented by: Fluoxetine HCl (Fluoxetine Hcl 20 Mg Capsule) 20 mg PO DAILY AMELIA Last Admin: 10/01/21 08:32 Dose: 20 mg Documented by: Gabapentin (Gabapentin 400 Mg Capsule) 400 mg PO DAILY PRN PRN Reason: BREAKTHROUGH NEUROPATHIC PAIN Last Admin: 09/30/21 21:23 Dose: 400 mg Documented by: Gabapentin (Gabapentin 400 Mg Capsule) 800 mg PO BID AMELIA Last Admin: 10/01/21 08:31 Dose: 800 mg Documented by: Hydroxyzine HCl (Hydroxyzine Hcl 25 Mg Tablet) 25 mg PO BID PRN PRN Reason: Anxiety Last Admin: 09/30/21 16:01 Dose: 25 mg Documented by: Loperamide HCl (Loperamide Hcl 2 Mg Capsule) 4 mg PO Q4H PRN PRN Reason: Diarrhea Last Admin: 09/22/21 09:20 Dose: 4 mg Documented by: Lurasidone HCl (Lurasidone Hcl 40 Mg Tablet) 40 mg PO BEDTIME AMELIA Last Admin: 09/30/21 21:23 Dose: 40 mg Documented by: Metoclopramide HCl (Metoclopramide Hcl 5 Mg Tablet) 5 mg PO TIDAC PRN PRN Reason: nausea and vomiting; motility Last Admin: 10/01/21 08:34 Dose: 5 mg Documented by: Nicotine (Nicotine 21 Mg Patch.Td24) 21 mg TRANSDERMA DAILY PRN PRN Reason: nicotine cravings Nicotine Polacrilex (Nicotine Polacrilex 2 Mg Gum) 4 mg BUCCAL Q2H PRN PRN Reason: Nicotine Cravings Ondansetron HCl (Ondansetron Odt 4 Mg Tab.Rapdis) 4 mg TRANSLINGU Q4H PRN PRN Reason: Nausea Last Admin: 09/30/21 19:02 Dose: 4 mg Documented by: Trazodone HCl (Trazodone Hcl 100 Mg Tablet) 100 mg PO BEDTIME AMELIA Last Admin: 09/30/21 21:24 Dose: 100 mg Documented by: Zolpidem Tartrate (Zolpidem Tartrate 5 Mg Tablet) 5 mg PO BEDTIME AMELIA Last Admin: 09/30/21 21:24 Dose: 5 mg Documented by: Allergies Allergies Allergy/AdvReac Type Severity Reaction Status Date / Time buspirone [From BuSpar] Allergy Swelling Verified 07/23/21 19:02 chlorpromazine Allergy Anaphylaxis Verified 07/23/21 19:02 [From Thorazine] lamotrigine [From Lamictal] Allergy Rash Verified 07/23/21 19:02 Sulfa (Sulfonamide Allergy Rash Verified 07/23/21 19:02 Antibiotics) linaclotide [From Linzess] AdvReac Abdominal Verified 07/23/21 19:02 Pain quetiapine [From Seroquel] AdvReac bad side Verified 07/23/21 19:02 effects' topiramate AdvReac Fogginess Verified 07/23/21 19:02 ziprasidone [From Geodon] AdvReac psychosis Verified 07/23/21 19:02 Assessment & Plan Assessment & Plan (1) Anorexia nervosa: Status: Acute Code(s): F50.00 - Anorexia nervosa, unspecified (2) Opioid abuse: Status: Acute Code(s): F11.10 - Opioid abuse, uncomplicated (3) Major depressive disorder, recurrent, moderate: Status: Acute Code(s): F33.1 - Major depressive disorder, recurrent, moderate (4) Anorexia nervosa, restricting type: Status: Acute Code(s): F50.01 - Anorexia nervosa, restricting type (5) PTSD (post-traumatic stress disorder): Status: Acute Code(s): F43.10 - Post-traumatic stress disorder, unspecified Plan Zuleyma is a 35 y.o. Female who carries a dx of PTSD, likely BPD, anorexia nervosa, polysubstance abuse, and MDD, recurrent episode. She presented to [facility] ED on 09/21/21 reporting passive SI, using crack cocaine in an attempt to lose weight. Pt has multiple co-morbid medical concerns including ostomy bag, urinary retention, and chronic pain. Has long hx of IPLOC, PHP, and detox. Has OP psych services, psychiatrist is Dr. Anand. 09/25 depressed, but no SI; starting to eat again; continue current med regimen 09/26 no medication changes 09/27: continue to engage in positive self talk 09/29 pt remains engaged in treatment; eating more and making healthy choices; discussed outpt [facility] and [facility]. No changes to regimen. 09/30 some nausea today, patient vomited twice, taking Zofran which resolved N/V (on Reglan for motility, Zofran for N/V) 10/01 all nasuea/vomiting resolved last night struggling with anxiety, but No suicidalilty at all and still resolved to stay safe. Pt feels she very much needs an PHP to attend, to help her stay focused on treatment while waiting for [facility] admission (which will take about a month). Plan: CV, Q15 min safety checks continue home meds PHP program application; chief underwriter feels that patient is working hard to stay sober, work on her issues and make healthy food choices; however, she remains vulnerable to relapse/decompensation. Eligibility Analyst recommends that patient attend PHP while waiting for [facility] admission. Pt has a prior strong work history and generally does better when she has structure Monitor response to medications. Monitor for safety in the milieu. Discharge on stabilization. Patient seen. Chart reviewed. Discussed with team. Obtain collateral contact info as needed I spent minutes with the patient and/or on the patient floor today, greater than?50% of which was spent counseling/coordinating care. Patient educated on: diagnosis and substance abuse Informed Consent: understands Reason for contiued inpatient stay Substantial Risk for: med/psych decompensation
[2021-10-01 21:00] VITALS: BP 104/62; PULSE 82; RESP 18; TEMP 36.7; O2SAT 99
[2021-10-01] MEDS: Zolpidem Tartrate 5 MG TABLET PO (21:06)
[2021-10-01] MEDS: cloNIDine HCL 0.1 MG TABLET PO (21:06)
[2021-10-01] MEDS: Lurasidone HCl 40 MG TABLET PO (21:07)
[2021-10-01] MEDS: diphenhydrAMINE HCL 25 MG TABLET PO (21:08)
[2021-10-01] MEDS: clonazePAM 1 MG TABLET 2 MG PO (21:08)
[2021-10-01] MEDS: traZODone HCL 100 MG TABLET PO (21:08)
[2021-10-02 06:00] VITALS: BP 108/63; PULSE 69; RESP 14; TEMP 36.6; O2SAT 100
[2021-10-02] MEDS: DULoxetine HCl 30 MG CAPSULE.DR 90 MG PO (08:36)
[2021-10-02] MEDS: Gabapentin 400 MG CAPSULE 800 MG PO ×2 (08:36→20:15)
[2021-10-02] MEDS: FLUoxetine HCl 20 MG CAPSULE PO (08:37)
[2021-10-02] MEDS: Bethanechol Chloride 25 MG TABLET PO ×3 (08:37→16:05)
--- NOTE | 2021-10-02 11:37 | P.PNPSI_ITS ---
Subjective Subjective Date of Service: 10/02/21 Reason For Visit: depression/SI Interim History: pt very anxious and depressed. Her eating disordered thoughts are becoming more severe and she reports she cannot stop thinking she is fat. Pt reports that her eating disordered thinking is getting close to about the worst it's ever been. Pt also plagued with flashbacks of past traumas and getting overwhelmed with self-deprecating thoughts. Pt shares about some details of trauma history which is severe, dating back to childhood. She is able to see that she has overcome much in her life and was able to remains sober for over 10 years, successfully functioning until her relapse a year ago. She is trying to force herself to maintain hope that she can overcome this again, but is currently struggling to do so. Mental Status Exam Mental Status Exam Narrative: A&O. Pt is frail appearing, adequately groomed with good hygiene. Good eye contact, attentive.? No? abnormal involuntary movements. Behavior is? cooperative, tearful; speech is Non-pressured speech, spontaneous with regular rate and rhythm, normal volume and prosody. Mood is ?anxious... ' affect is congruent and downcast, intermittently tearful. Denies SI/SIB/HI upon inquiry. Denies A/VH or delusional thought content. Thoughts are coherent, organized. No known cognitive or memory impairment. Insight/ Judgment impaired Diagnostics Vital Signs (24Hr): Vital Signs - 24 hr 10/01/21 21:00 Temperature 98.0 F Pulse Rate 82 Respiratory Rate 18 Blood Pressure 104/62 Pulse Oximetry 99 BMI result Body Mass Index 16.9 Labs Results: 09/25/21 08:47 Medications Medications Current Medications Acetaminophen (Acetaminophen 325 Mg Tablet) 650 mg PO Q6H PRN PRN Reason: HEADACHE/MILD PAIN Last Admin: 09/30/21 14:45 Dose: 650 mg Documented by: Al Hydroxide/Mg Hydroxide (Magnesium Hydrox/Alum Hydrox 30 Ml Oral.Susp) 30 ml PO Q6H PRN PRN Reason: Heartburn/Nausea Bethanechol Chloride (Bethanechol Chloride 25 Mg Tablet) 25 mg PO TIDAC AMELIA Last Admin: 10/02/21 11:16 Dose: 25 mg Documented by: Bethanechol Chloride (Bethanechol Chloride 25 Mg Tablet) 25 mg PO DAILY PRN PRN Reason: if misses a dose Last Admin: 09/27/21 15:01 Dose: 25 mg Documented by: Clonidine HCl (Clonidine Hcl 0.1 Mg Tablet) 0.1 mg PO TID PRN; Protocol PRN Reason: for daytime anxiety and bedtime hyperarousal Clonidine HCl (Clonidine Hcl 0.1 Mg Tablet) 0.1 mg PO BEDTIME AMELIA; Protocol Last Admin: 10/01/21 21:06 Dose: 0.1 mg Documented by: Diphenhydramine HCl (Diphenhydramine Hcl 25 Mg Tablet) 25 mg PO BEDTIME AMELIA Last Admin: 10/01/21 21:08 Dose: 25 mg Documented by: Duloxetine HCl (Duloxetine Hcl 30 Mg Capsule.Dr) 90 mg PO DAILY AMELIA Last Admin: 10/02/21 08:36 Dose: 90 mg Documented by: Fluoxetine HCl (Fluoxetine Hcl 20 Mg Capsule) 20 mg PO DAILY [facility] Last Admin: 10/02/21 08:37 Dose: 20 mg Documented by: Gabapentin (Gabapentin 400 Mg Capsule) 400 mg PO DAILY PRN PRN Reason: BREAKTHROUGH NEUROPATHIC PAIN Last Admin: 09/30/21 21:23 Dose: 400 mg Documented by: Gabapentin (Gabapentin 400 Mg Capsule) 800 mg PO BID AMELIA Last Admin: 10/02/21 08:36 Dose: 800 mg Documented by: Hydroxyzine HCl (Hydroxyzine Hcl 25 Mg Tablet) 25 mg PO BID PRN PRN Reason: Anxiety Last Admin: 09/30/21 16:01 Dose: 25 mg Documented by: Loperamide HCl (Loperamide Hcl 2 Mg Capsule) 4 mg PO Q4H PRN PRN Reason: Diarrhea Last Admin: 09/22/21 09:20 Dose: 4 mg Documented by: Lurasidone HCl (Lurasidone Hcl 40 Mg Tablet) 40 mg PO BEDTIME AMELIA Last Admin: 10/01/21 21:07 Dose: 40 mg Documented by: Metoclopramide HCl (Metoclopramide Hcl 5 Mg Tablet) 5 mg PO TIDAC PRN PRN Reason: nausea and vomiting; motility Last Admin: 10/01/21 16:12 Dose: 5 mg Documented by: Nicotine (Nicotine 21 Mg Patch.Td24) 21 mg TRANSDERMA DAILY PRN PRN Reason: nicotine cravings Nicotine Polacrilex (Nicotine Polacrilex 2 Mg Gum) 4 mg BUCCAL Q2H PRN PRN Reason: Nicotine Cravings Ondansetron HCl (Ondansetron Odt 4 Mg Tab.Rapdis) 4 mg TRANSLINGU Q4H PRN PRN Reason: Nausea Last Admin: 09/30/21 19:02 Dose: 4 mg Documented by: Trazodone HCl (Trazodone Hcl 100 Mg Tablet) 100 mg PO BEDTIME AMELIA Last Admin: 10/01/21 21:08 Dose: 100 mg Documented by: Allergies Allergies Allergy/AdvReac Type Severity Reaction Status Date / Time buspirone [From BuSpar] Allergy Swelling Verified 07/23/21 19:02 chlorpromazine Allergy Anaphylaxis Verified 07/23/21 19:02 [From Thorazine] lamotrigine [From Lamictal] Allergy Rash Verified 07/23/21 19:02 Sulfa (Sulfonamide Allergy Rash Verified 07/23/21 19:02 Antibiotics) linaclotide [From Linzess] AdvReac Abdominal Verified 07/23/21 19:02 Pain quetiapine [From Seroquel] AdvReac bad side Verified 07/23/21 19:02 effects' topiramate AdvReac Fogginess Verified 07/23/21 19:02 ziprasidone [From Geodon] AdvReac psychosis Verified 07/23/21 19:02 Assessment & Plan Assessment & Plan (1) Anorexia nervosa, restricting type: Status: Acute Code(s): F50.01 - Anorexia nervosa, restricting type (2) Major depressive disorder, recurrent, moderate: Status: Acute Code(s): F33.1 - Major depressive disorder, recurrent, moderate (3) PTSD (post-traumatic stress disorder): Status: Acute Code(s): F43.10 - Post-traumatic stress disorder, unspecified (4) Cocaine use disorder: Status: Acute Code(s): F14.10 - Cocaine abuse, uncomplicated Plan Zuleyma is a 35 y.o. Female who carries a dx of PTSD, likely BPD, anorexia nervosa, polysubstance abuse, and MDD, recurrent episode. She presented to [facility] ED on 09/21/21 reporting passive SI, using crack cocaine in an attempt to lose weight. Pt has multiple co-morbid medical concerns including ostomy bag, urinary retention, and chronic pain. Has long hx of IPLOC, PHP, and detox. Has OP psych services, psychiatrist is Dr. Anand. 09/25 depressed, but no SI; starting to eat again; continue current med regimen 09/26 no medication changes 09/27: continue to engage in positive self talk 09/29 pt remains engaged in treatment; eating more and making healthy choices; discussed outpt [facility] and [place]. No changes to regimen. 09/30 some nausea today, patient vomited twice, taking Zofran which resolved N/V (on Reglan for motility, Zofran for N/V) 10/01 all nasuea/vomiting resolved last night struggling with anxiety, but No suicidalilty at all and still resolved to stay safe. Pt feels she very much needs an PHP to attend, to help her stay focused on treatment while waiting for [facility] admission (which will take about a month). 10/02 worsening eat disorered thoughts; increasing belief she is fat; trying to stay hopeful about getting better, but being overcome by negative thoughts. Pa tients eating disordered thoughts are at a delusional level and patient is struggling, finding it harder to discern between what is real and what is disordered (believes she is really fat ). Of note, patients recent cocaine abuse was used in order to help patient not eat Plan: CV, Q15 min safety checks continue home meds -Will consider increasing Latuda (though will need another PA); already on both Prozac and Cymbalta -continue Cymbalta 90mg daily -continue Prozac 20mg daily (pt has tolerated both and done well at these doses for years w/out side-effects) PHP program application; specification writer feels that patient is working hard to stay sober, work on her issues and make healthy food choices; however, she remains vulnerable to relapse/decompensation. Clinical Administrative Coordinator recommends that patient attend PHP while waiting for [facility] admission. Pt has a prior strong work history and generally does better when she has structure Monitor response to medications. Monitor for safety in the milieu. Discharge on stabilization. Patient seen. Chart reviewed. Discussed with team. Obtain collateral contact info as needed I spent minutes with the patient and/or on the patient floor today, greater than?50% of which was spent counseling/coordinating care. Patient educated on: diagnosis and medication risk/benefits Informed Consent: understands Reason for contiued inpatient stay Substantial Risk for: harm to self and rapid decompensation
[2021-10-02] MEDS: Metoclopramide HCl 5 MG TABLET PO (16:57)
[2021-10-02 18:00] VITALS: BP 118/64; PULSE 73; RESP 16; TEMP 37.1; O2SAT 99
[2021-10-02] MEDS: cloNIDine HCL 0.1 MG TABLET PO (20:15)
[2021-10-02] MEDS: traZODone HCL 100 MG TABLET PO (20:15)
[2021-10-02] MEDS: Lurasidone HCl 40 MG TABLET PO (20:15)
[2021-10-02] MEDS: diphenhydrAMINE HCL 25 MG TABLET PO (20:15)
[2021-10-02] MEDS: Zolpidem Tartrate 5 MG TABLET PO (22:27)
--- NOTE | 2021-10-03 05:54 | PC.NURSE ---
Patient came out of her room visibly upset, stating ostomy bag ruptured. Emotional support offered, RN assisted with changing ostomy and disposing of soiled materials. Staff helped in changing linens.
[2021-10-03 06:20] VITALS: BP 131/78; PULSE 58; RESP 18; TEMP 36.3; O2SAT 100
[2021-10-03] MEDS: FLUoxetine HCl 20 MG CAPSULE PO (08:35)
[2021-10-03] MEDS: DULoxetine HCl 30 MG CAPSULE.DR 90 MG PO (08:35)
[2021-10-03] MEDS: Bethanechol Chloride 25 MG TABLET PO ×3 (08:36→16:21)
[2021-10-03] MEDS: Gabapentin 400 MG CAPSULE 800 MG PO ×2 (08:36→20:16)
[2021-10-03] MEDS: Acetaminophen 325 MG TABLET 650 MG PO ×3 (10:13→22:32)
--- NOTE | 2021-10-03 13:54 | HO.PSYCHPN ---
Subjective Subjective Date of Service: 10/03/21 Reason For Visit: depression/SI Interim History: Patient seen and discussed with nursing. Patient complaining of jaw pain since last night and today it is worse. She reports she had EPS with Haldol in the past. She had trouble with my tongue two nights ago. No change in her medications. She has been on Latuda since July. She reports otherwise she is feeling well. Able to tolerate her regular diet of yoghurt and cottage cheese. She had taken Cogentin for EPS in the past. She denies SI. pt tearful today, struggling with worries and feeling vulnerable. No suicidalilty at all and still resolved to stay safe. Review of Systems Review of Systems CVS: No c/o chest pain, palpitations, no SOB MANAGER MAIL: No c/o dizziness, headache GI: No c/o Nausea, Vomiting, diarrhea, constipation or heartburn Yes all other systems are reviewed and are negative Mental Status Exam Mental Status Exam Narrative: A&O. Pt is frail appearing, well groomed with good hygiene. Good eye contact, attentive. Holding her jaw with her hands. Appears uncomfortable. No apparent abnormal involuntary movements. Behavior is cooperative and engaged. Non-pressured speech, spontaneous with regular rate and rhythm, normal volume and prosody. No prolonged speech latency or dysarthria. Mood is ?anxious? affect is congruent. Denies SI/SIB/HI upon inquiry. Denies A/VH or delusional thought content. Thoughts are coherent, organized. No known cognitive or memory impairment. Insight/ Judgment improving Diagnostics Vital Signs (24Hr): Vital Signs - 24 hr 10/02/21 18:00 10/03/21 06:20 Temperature 98.7 F 97.3 F Pulse Rate 73 58 Respiratory Rate 16 18 Blood Pressure 118/64 131/78 Pulse Oximetry 99 100 BMI result Body Mass Index 16.9 Labs Results: 09/25/21 08:47 Medications Medications Current Medications Acetaminophen (Acetaminophen 325 Mg Tablet) 650 mg PO Q6H PRN PRN Reason: HEADACHE/MILD PAIN Last Admin: 10/03/21 10:13 Dose: 650 mg Documented by: Al Hydroxide/Mg Hydroxide (Magnesium Hydrox/Alum Hydrox 30 Ml Oral.Susp) 30 ml PO Q6H PRN PRN Reason: Heartburn/Nausea Benztropine Mesylate (Benztropine Mesylate 1 Mg Tablet) 1 mg PO BID PRN PRN Reason: EPS/Stiffness Bethanechol Chloride (Bethanechol Chloride 25 Mg Tablet) 25 mg PO TIDAC AMELIA Last Admin: 10/03/21 11:13 Dose: 25 mg Documented by: Bethanechol Chloride (Bethanechol Chloride 25 Mg Tablet) 25 mg PO DAILY PRN PRN Reason: if misses a dose Last Admin: 09/27/21 15:01 Dose: 25 mg Documented by: Clonidine HCl (Clonidine Hcl 0.1 Mg Tablet) 0.1 mg PO TID PRN; Protocol PRN Reason: for daytime anxiety and bedtime hyperarousal Clonidine HCl (Clonidine Hcl 0.1 Mg Tablet) 0.1 mg PO BEDTIME AMELIA; Protocol Last Admin: 10/02/21 20:15 Dose: 0.1 mg Documented by: Diphenhydramine HCl (Diphenhydramine Hcl 25 Mg Tablet) 25 mg PO BEDTIME AMELIA Last Admin: 10/02/21 20:15 Dose: 25 mg Documented by: Duloxetine HCl (Duloxetine Hcl 30 Mg Capsule.Dr) 90 mg PO DAILY AMELIA Last Admin: 10/03/21 08:35 Dose: 90 mg Documented by: Fluoxetine HCl (Fluoxetine Hcl 20 Mg Capsule) 20 mg PO DAILY AMELIA Last Admin: 10/03/21 08:35 Dose: 20 mg Documented by: Gabapentin (Gabapentin 400 Mg Capsule) 400 mg PO DAILY PRN PRN Reason: BREAKTHROUGH NEUROPATHIC PAIN Last Admin: 09/30/21 21:23 Dose: 400 mg Documented by: Gabapentin (Gabapentin 400 Mg Capsule) 800 mg PO BID AMELIA Last Admin: 10/03/21 08:36 Dose: 800 mg Documented by: Hydroxyzine HCl (Hydroxyzine Hcl 25 Mg Tablet) 25 mg PO BID PRN PRN Reason: Anxiety Last Admin: 09/30/21 16:01 Dose: 25 mg Documented by: Loperamide HCl (Loperamide Hcl 2 Mg Capsule) 4 mg PO Q4H PRN PRN Reason: Diarrhea Last Admin: 09/22/21 09:20 Dose: 4 mg Documented by: Lurasidone HCl (Lurasidone Hcl 40 Mg Tablet) 40 mg PO BEDTIME AMELIA Last Admin: 10/02/21 20:15 Dose: 40 mg Documented by: Metoclopramide HCl (Metoclopramide Hcl 5 Mg Tablet) 5 mg PO TIDAC PRN PRN Reason: nausea and vomiting; motility Last Admin: 10/02/21 16:57 Dose: 5 mg Documented by: Nicotine (Nicotine 21 Mg Patch.Td24) 21 mg TRANSDERMA DAILY PRN PRN Reason: nicotine cravings Nicotine Polacrilex (Nicotine Polacrilex 2 Mg Gum) 4 mg BUCCAL Q2H PRN PRN Reason: Nicotine Cravings Ondansetron HCl (Ondansetron Odt 4 Mg Tab.Rapdis) 4 mg TRANSLINGU Q4H PRN PRN Reason: Nausea Last Admin: 09/30/21 19:02 Dose: 4 mg Documented by: Trazodone HCl (Trazodone Hcl 100 Mg Tablet) 100 mg PO BEDTIME AMELIA Last Admin: 10/02/21 20:15 Dose: 100 mg Documented by: Zolpidem Tartrate (Zolpidem Tartrate 5 Mg Tablet) 5 mg PO BEDTIME PRN PRN Reason: Insomnia Last Admin: 10/02/21 22:27 Dose: 5 mg Documented by: Allergies Allergies Allergy/AdvReac Type Severity Reaction Status Date / Time buspirone [From BuSpar] Allergy Swelling Verified 07/23/21 19:02 chlorpromazine Allergy Anaphylaxis Verified 07/23/21 19:02 [From Thorazine] lamotrigine [From Lamictal] Allergy Rash Verified 07/23/21 19:02 Sulfa (Sulfonamide Allergy Rash Verified 07/23/21 19:02 Antibiotics) linaclotide [From Linzess] AdvReac Abdominal Verified 07/23/21 19:02 Pain quetiapine [From Seroquel] AdvReac bad side Verified 07/23/21 19:02 effects' topiramate AdvReac Fogginess Verified 07/23/21 19:02 ziprasidone [From Geodon] AdvReac psychosis Verified 07/23/21 19:02 Assessment & Plan Assessment & Plan (1) Anorexia nervosa: Status: Acute Code(s): F50.00 - Anorexia nervosa, unspecified (2) Opioid abuse: Status: Acute Code(s): F11.10 - Opioid abuse, uncomplicated (3) Major depressive disorder, recurrent, moderate: Status: Acute Code(s): F33.1 - Major depressive disorder, recurrent, moderate (4) Anorexia nervosa, restricting type: Status: Acute Code(s): F50.01 - Anorexia nervosa, restricting type (5) PTSD (post-traumatic stress disorder): Status: Acute Code(s): F43.10 - Post-traumatic stress disorder, unspecified Plan Zuleyma is a 35 y.o. Female who carries a dx of PTSD, likely BPD, anorexia nervosa, polysubstance abuse, and MDD, recurrent episode. She presented to [facility] on 09/21/21 reporting passive SI, using crack cocaine in an attempt to lose weight. Pt has multiple co-morbid medical concerns including ostomy bag, urinary retention, and chronic pain. Has long hx of IPLOC, PHP, and detox. Has OP psych services, psychiatrist is Dr. Anand. 09/25 depressed, but no SI; starting to eat again; continue current med regimen 09/26 no medication changes 09/27: continue to engage in positive self talk 09/29 pt remains engaged in treatment; eating more and making healthy choices; discussed outpt [facility] and [facility]. No changes to regimen. 09/30 some nausea today, patient vomited twice, taking Zofran which resolved N/V (on Reglan for motility, Zofran for N/V) 10/01 all nasuea/vomiting resolved last night struggling with anxiety, but No suicidalilty at all and still resolved to stay safe. Pt feels she very much needs an PHP to attend, to help her stay focused on treatment while waiting for [facility] admission (which will take about a month). /: Likely EPS and jaw stiffening. Trial cogentin 1 mg BID PRN. Minimize Reglan. Plan: CV, Q15 min safety checks continue home meds PHP program application; marketing copywriter feels that patient is working hard to stay sober, work on her issues and make healthy food choices; however, she remains vulnerable to relapse/decompensation. Cloak Room Attendant recommends that patient attend PHP while waiting for [facility] admission. Pt has a prior strong work history and generally does better when she has structure Monitor response to medications. Monitor for safety in the milieu. Discharge on stabilization. Patient seen. Chart reviewed. Discussed with team. Obtain collateral contact info as needed I spent minutes with the patient and/or on the patient floor today, greater than?50% of which was spent counseling/coordinating care. Patient educated on: diagnosis Guardian/Caregiver educated on: medication risk/benefits Informed Consent: understands Reason for contiued inpatient stay Substantial Risk for: harm to self, inability to function and rapid decompensation
[2021-10-03] MEDS: Benztropine Mesylate 1 MG TABLET PO ×2 (13:57→16:21)
--- NOTE | 2021-10-03 14:41 | PC.NURSE ---
pt reports not feeling well. temp 99.0 sitting 116/77 100%ra p 84 standing 100% 91 p, 126/81 . recieved tylenol. felt dizzy upon standing. states not drinking enough fluids. water pitcher given. feeling better after fluids. c/0 rash on abdomen which she reports is new. dr. Colon aware of above and looked at the rash. pt also c/o stiff jaw and felt as if it was shifting . cogentin ordered and given with effects pending.
[2021-10-03 18:00] VITALS: BP 104/76; PULSE 96; RESP 16; TEMP 36.6; O2SAT 99
[2021-10-03] MEDS: cloNIDine HCL 0.1 MG TABLET PO (20:16)
[2021-10-03] MEDS: diphenhydrAMINE HCL 25 MG TABLET PO (20:16)
[2021-10-03] MEDS: Lurasidone HCl 40 MG TABLET PO (20:16)
[2021-10-03] MEDS: traZODone HCL 100 MG TABLET PO (20:16)
[2021-10-03] MEDS: Zolpidem Tartrate 5 MG TABLET PO (22:33)
[2021-10-04 06:15] VITALS: BP 119/59; PULSE 72; RESP 18; TEMP 36.4; O2SAT 97
[2021-10-04] MEDS: Gabapentin 400 MG CAPSULE 800 MG PO ×2 (08:47→20:27)
[2021-10-04] MEDS: DULoxetine HCl 30 MG CAPSULE.DR 90 MG PO (08:48)
[2021-10-04] MEDS: Bethanechol Chloride 25 MG TABLET PO ×3 (08:49→16:37)
[2021-10-04] MEDS: FLUoxetine HCl 20 MG CAPSULE PO (08:49)
[2021-10-04] MEDS: Benztropine Mesylate 1 MG TABLET PO (09:51)
[2021-10-04] MEDS: Acetaminophen 325 MG TABLET 650 MG PO ×2 (11:45→22:31)
--- NOTE | 2021-10-04 13:17 | P.PNPSI_ITS ---
Subjective Subjective Date of Service: 10/04/21 Reason For Visit: depression/SI Interim History: Patient seen and discussed with nursing. Jaw pain subsided with cogentin. She says she feels dizzy sometimes. She is staying hydrated. She had a rash yesterday on her abdomen related to a stoma leak the night before and that is gone. Able to tolerate her regular diet of yoghurt and cottage cheese. She has a sore throat. She says it started today and asked for a lozenge. She denies SI and resolved to stay safe. 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 Pt is frail appearing, well groomed with good hygiene. Good eye contact, attentive. No abnormal involuntary movements. Behavior is cooperative and engaged. Non-pressured speech, spontaneous with regular rate and rhythm, normal volume and prosody. No prolonged speech latency or dysarthria. Mood is ?I'm OK today? affect is congruent. Denies SI/SIB/HI upon inquiry. Denies A/VH or delusional thought content. Thoughts are coherent, organized. No known cognitive or memory impairment. Insight/ Judgment improving Diagnostics Vital Signs (24Hr): Vital Signs - 24 hr 10/03/21 18:00 10/04/21 06:15 Temperature 98 F 97.6 F Pulse Rate 96 72 Respiratory Rate 16 18 Blood Pressure 104/76 119/59 L Pulse Oximetry 99 97 BMI result Body Mass Index 16.9 Labs Results: 09/25/21 08:47 Medications Medications Current Medications Acetaminophen (Acetaminophen 325 Mg Tablet) 650 mg PO Q6H PRN PRN Reason: HEADACHE/MILD PAIN Last Admin: 10/04/21 11:45 Dose: 650 mg Documented by: Al Hydroxide/Mg Hydroxide (Magnesium Hydrox/Alum Hydrox 30 Ml Oral.Susp) 30 ml PO Q6H PRN PRN Reason: Heartburn/Nausea Benzocaine (Throat Lozenge, Medicated Lozenge) 1 lozenge MUCOUS MEM Q2H PRN PRN Reason: Sore Throat Benztropine Mesylate (Benztropine Mesylate 1 Mg Tablet) 1 mg PO BID PRN PRN Reason: EPS/Stiffness Last Admin: 10/04/21 09:51 Dose: 1 mg Documented by: Bethanechol Chloride (Bethanechol Chloride 25 Mg Tablet) 25 mg PO TIDAC AMELIA Last Admin: 10/04/21 11:21 Dose: 25 mg Documented by: Bethanechol Chloride (Bethanechol Chloride 25 Mg Tablet) 25 mg PO DAILY PRN PRN Reason: if misses a dose Last Admin: 09/27/21 15:01 Dose: 25 mg Documented by: Clonidine HCl (Clonidine Hcl 0.1 Mg Tablet) 0.1 mg PO TID PRN; Protocol PRN Reason: for daytime anxiety and bedtime hyperarousal Clonidine HCl (Clonidine Hcl 0.1 Mg Tablet) 0.1 mg PO BEDTIME AMELIA; Protocol Last Admin: 10/03/21 20:16 Dose: 0.1 mg Documented by: Diphenhydramine HCl (Diphenhydramine Hcl 25 Mg Tablet) 25 mg PO BEDTIME AMELIA Last Admin: 10/03/21 20:16 Dose: 25 mg Documented by: Duloxetine HCl (Duloxetine Hcl 30 Mg Capsule.Dr) 90 mg PO DAILY AMELIA Last Admin: 10/04/21 08:48 Dose: 90 mg Documented by: Fluoxetine HCl (Fluoxetine Hcl 20 Mg Capsule) 20 mg PO DAILY [facility] Last Admin: 10/04/21 08:49 Dose: 20 mg Documented by: Gabapentin (Gabapentin 400 Mg Capsule) 400 mg PO DAILY PRN PRN Reason: BREAKTHROUGH NEUROPATHIC PAIN Last Admin: 09/30/21 21:23 Dose: 400 mg Documented by: Gabapentin (Gabapentin 400 Mg Capsule) 800 mg PO BID AMELIA Last Admin: 10/04/21 08:47 Dose: 800 mg Documented by: Hydroxyzine HCl (Hydroxyzine Hcl 25 Mg Tablet) 25 mg PO BID PRN PRN Reason: Anxiety Last Admin: 09/30/21 16:01 Dose: 25 mg Documented by: Loperamide HCl (Loperamide Hcl 2 Mg Capsule) 4 mg PO Q4H PRN PRN Reason: Diarrhea Last Admin: 09/22/21 09:20 Dose: 4 mg Documented by: Lurasidone HCl (Lurasidone Hcl 40 Mg Tablet) 40 mg PO BEDTIME AMELIA Last Admin: 10/03/21 20:16 Dose: 40 mg Documented by: Metoclopramide HCl (Metoclopramide Hcl 5 Mg Tablet) 5 mg PO TIDAC PRN PRN Reason: nausea and vomiting; motility Last Admin: 10/02/21 16:57 Dose: 5 mg Documented by: Nicotine (Nicotine 21 Mg Patch.Td24) 21 mg TRANSDERMA DAILY PRN PRN Reason: nicotine cravings Nicotine Polacrilex (Nicotine Polacrilex 2 Mg Gum) 4 mg BUCCAL Q2H PRN PRN Reason: Nicotine Cravings Ondansetron HCl (Ondansetron Odt 4 Mg Tab.Rapdis) 4 mg TRANSLINGU Q4H PRN PRN Reason: Nausea Last Admin: 09/30/21 19:02 Dose: 4 mg Documented by: Trazodone HCl (Trazodone Hcl 100 Mg Tablet) 100 mg PO BEDTIME AMELIA Last Admin: 10/03/21 20:16 Dose: 100 mg Documented by: Zolpidem Tartrate (Zolpidem Tartrate 5 Mg Tablet) 5 mg PO BEDTIME PRN PRN Reason: Insomnia Last Admin: 10/03/21 22:33 Dose: 5 mg Documented by: Allergies Allergies Allergy/AdvReac Type Severity Reaction Status Date / Time buspirone [From BuSpar] Allergy Swelling Verified 07/23/21 19:02 chlorpromazine Allergy Anaphylaxis Verified 07/23/21 19:02 [From Thorazine] lamotrigine [From Lamictal] Allergy Rash Verified 07/23/21 19:02 Sulfa (Sulfonamide Allergy Rash Verified 07/23/21 19:02 Antibiotics) linaclotide [From Linzess] AdvReac Abdominal Verified 07/23/21 19:02 Pain quetiapine [From Seroquel] AdvReac bad side Verified 07/23/21 19:02 effects' topiramate AdvReac Fogginess Verified 07/23/21 19:02 ziprasidone [From Geodon] AdvReac psychosis Verified 07/23/21 19:02 Assessment & Plan Assessment & Plan (1) Anorexia nervosa: Status: Acute Code(s): F50.00 - Anorexia nervosa, unspecified (2) Opioid abuse: Status: Acute Code(s): F11.10 - Opioid abuse, uncomplicated (3) Major depressive disorder, recurrent, moderate: Status: Acute Code(s): F33.1 - Major depressive disorder, recurrent, moderate (4) Anorexia nervosa, restricting type: Status: Acute Code(s): F50.01 - Anorexia nervosa, restricting type (5) PTSD (post-traumatic stress disorder): Status: Acute Code(s): F43.10 - Post-traumatic stress disorder, unspecified Plan Zuleyma is a 35 y.o. Female who carries a dx of PTSD, likely BPD, anorexia nervosa, polysubstance abuse, and MDD, recurrent episode. She presented to [facility] ED on 09/21/21 reporting passive SI, using crack cocaine in an attempt to lose weight. Pt has multiple co-morbid medical concerns including ostomy bag, urinary retention, and chronic pain. Has long hx of IPLOC, PHP, and detox. Has OP psych services, psychiatrist is Dr. Anand. 09/25 depressed, but no SI; starting to eat again; continue current med regimen 09/26 no medication changes 09/27: continue to engage in positive self talk 09/29 pt remains engaged in treatment; eating more and making healthy choices; discussed outpt [facility] and [facility]. No changes to regimen. 09/30 some nausea today, patient vomited twice, taking Zofran which resolved N/V (on Reglan for motility, Zofran for N/V) 10/01 all nasuea/vomiting resolved last night struggling with anxiety, but No suicidalilty at all and still resolved to stay safe. Pt feels she very much needs an PHP to attend, to help her stay focused on treatment while waiting for [facility] admission (which will take about a month). /: Likely EPS and jaw stiffening. Trial cogentin 1 mg BID PRN. Minimize Reglan. 10/04 Improved EPS. Sore throat will give throat lozenges. No change in psychotropics. Plan: CV, Q15 min safety checks continue home meds PHP program application; display card writer feels that patient is working hard to stay sober, work on her issues and make healthy food choices; however, she remains vulnerable to relapse/decompensation. Firewall Administrator recommends that patient attend PHP while waiting for [facility] admission. Pt has a prior strong work history and generally does better when she has structure Monitor response to medications. Monitor for safety in the milieu. Discharge on stabilization. Patient seen. Chart reviewed. Discussed with team. Obtain collateral contact info as needed I spent minutes with the patient and/or on the patient floor today, greater than?50% of which was spent counseling/coordinating care. Reason for contiued inpatient stay Substantial Risk for: harm to self and med/psych decompensation
[2021-10-04] MEDS: Throat Lozenge, Medicated LOZENGE 1 LOZENGE MUCOUS MEM ×2 (13:20→21:12)
[2021-10-04] MEDS: Metoclopramide HCl 5 MG TABLET PO (17:00)
[2021-10-04 18:00] VITALS: BP 122/68; PULSE 86; RESP 16; TEMP 36; O2SAT 98
[2021-10-04] MEDS: traZODone HCL 100 MG TABLET PO (20:27)
[2021-10-04] MEDS: cloNIDine HCL 0.1 MG TABLET PO (20:27)
[2021-10-04] MEDS: Lurasidone HCl 40 MG TABLET PO (20:27)
[2021-10-04] MEDS: diphenhydrAMINE HCL 25 MG TABLET PO (20:27)
[2021-10-04] MEDS: Zolpidem Tartrate 5 MG TABLET PO (22:57)
[2021-10-05 06:36] VITALS: BP 109/59; PULSE 68; RESP 15; TEMP 36.5; O2SAT 97
[2021-10-05] MEDS: Gabapentin 400 MG CAPSULE 800 MG PO ×2 (08:18→22:39)
[2021-10-05] MEDS: FLUoxetine HCl 20 MG CAPSULE PO (08:18)
[2021-10-05] MEDS: Bethanechol Chloride 25 MG TABLET PO ×3 (08:19→17:18)
[2021-10-05] MEDS: DULoxetine HCl 30 MG CAPSULE.DR 90 MG PO (08:19)
--- NOTE | 2021-10-05 17:01 | P.PNPSI_ITS ---
Subjective Subjective Date of Service: 10/05/21 Reason For Visit: depression/SI Interim History: Patient continuing to struggle with eating disordered thinking however she is still eating. She maintains this is some of the worst struggle she has had with discerning healthy thinking verse on healthy thinking regarding eating. Patient shared how she had challenging weekend as her ostomy bag came undone; however she said she survived it and that nursing staff was exceptionally helpful. Discussed [facility] admission, staying sober and continue to navigate through this challenging time. Although patient continues to struggle, she was again able to take into account the overall improvements she has made in her life and trying except this current struggle as part of the abdomen flow of dealing with her illness knowing that she will get through this as well. Mental Status Exam Mental Status Exam Narrative: Pt is alert and oriented; behavior is cooperative, friendly and calm; patient is not in distress; dressed in casual attire with good hygiene; mood is described as tough time and affect congruent, intermittently anxious and tearful; eye contact appropriate; Speech is normal rate, volume and prosody and not pressured; no psychomotor agitation/retardation present; thought process is organized and goal directed; Thought content is on thinking she is overweight and trying to get back healthy perspective on her illness; otherwise pertinent to relevant topics and without any delusional content, paranoid ideations or grandiosity; denies any SI/HI. There is no evidence of perceptual disturbance. Patients insight and judgment are impaired but improved as she continues to eat. Diagnostics Vital Signs (24Hr): Vital Signs - 24 hr 10/04/21 18:00 10/05/21 06:36 Temperature 96.8 F 97.7 F Pulse Rate 86 68 Respiratory Rate 16 15 Blood Pressure 122/68 109/59 L Pulse Oximetry 98 97 BMI result Body Mass Index 16.9 Labs Results: 09/25/21 08:47 Medications Medications Current Medications Acetaminophen (Acetaminophen 325 Mg Tablet) 650 mg PO Q6H PRN PRN Reason: HEADACHE/MILD PAIN Last Admin: 10/04/21 22:31 Dose: 650 mg Documented by: Al Hydroxide/Mg Hydroxide (Magnesium Hydrox/Alum Hydrox 30 Ml Oral.Susp) 30 ml PO Q6H PRN PRN Reason: Heartburn/Nausea Benzocaine (Throat Lozenge, Medicated Lozenge) 1 lozenge MUCOUS MEM Q2H PRN PRN Reason: Sore Throat Last Admin: 10/04/21 21:12 Dose: 1 lozenge Documented by: Benztropine Mesylate (Benztropine Mesylate 1 Mg Tablet) 1 mg PO BID PRN PRN Reason: EPS/Stiffness Last Admin: 10/04/21 09:51 Dose: 1 mg Documented by: Bethanechol Chloride (Bethanechol Chloride 25 Mg Tablet) 25 mg PO TIDAC [facility] Last Admin: 10/05/21 12:33 Dose: 25 mg Documented by: Bethanechol Chloride (Bethanechol Chloride 25 Mg Tablet) 25 mg PO DAILY PRN PRN Reason: if misses a dose Last Admin: 09/27/21 15:01 Dose: 25 mg Documented by: Clonidine HCl (Clonidine Hcl 0.1 Mg Tablet) 0.1 mg PO TID PRN; Protocol PRN Reason: for daytime anxiety and bedtime hyperarousal Clonidine HCl (Clonidine Hcl 0.1 Mg Tablet) 0.1 mg PO BEDTIME [facility]; Protocol Last Admin: 10/04/21 20:27 Dose: 0.1 mg Documented by: Diphenhydramine HCl (Diphenhydramine Hcl 25 Mg Tablet) 25 mg PO BEDTIME [facility] Last Admin: 10/04/21 20:27 Dose: 25 mg Documented by: Duloxetine HCl (Duloxetine Hcl 30 Mg Capsule.Dr) 90 mg PO DAILY [facility] Last Admin: 10/05/21 08:19 Dose: 90 mg Documented by: Fluoxetine HCl (Fluoxetine Hcl 20 Mg Capsule) 20 mg PO DAILY [facility] Last Admin: 10/05/21 08:18 Dose: 20 mg Documented by: Gabapentin (Gabapentin 400 Mg Capsule) 400 mg PO DAILY PRN PRN Reason: BREAKTHROUGH NEUROPATHIC PAIN Last Admin: 09/30/21 21:23 Dose: 400 mg Documented by: Gabapentin (Gabapentin 400 Mg Capsule) 800 mg PO BID [facility] Last Admin: 10/05/21 08:18 Dose: 800 mg Documented by: Hydroxyzine HCl (Hydroxyzine Hcl 25 Mg Tablet) 25 mg PO BID PRN PRN Reason: Anxiety Last Admin: 09/30/21 16:01 Dose: 25 mg Documented by: Loperamide HCl (Loperamide Hcl 2 Mg Capsule) 4 mg PO Q4H PRN PRN Reason: Diarrhea Last Admin: 09/22/21 09:20 Dose: 4 mg Documented by: Lurasidone HCl (Lurasidone Hcl 40 Mg Tablet) 40 mg PO BEDTIME [facility] Last Admin: 10/04/21 20:27 Dose: 40 mg Documented by: Metoclopramide HCl (Metoclopramide Hcl 5 Mg Tablet) 5 mg PO TIDAC PRN PRN Reason: nausea and vomiting; motility Last Admin: 10/04/21 17:00 Dose: 5 mg Documented by: Nicotine (Nicotine 21 Mg Patch.Td24) 21 mg TRANSDERMA DAILY PRN PRN Reason: nicotine cravings Nicotine Polacrilex (Nicotine Polacrilex 2 Mg Gum) 4 mg BUCCAL Q2H PRN PRN Reason: Nicotine Cravings Ondansetron HCl (Ondansetron Odt 4 Mg Tab.Rapdis) 4 mg TRANSLINGU Q4H PRN PRN Reason: Nausea Last Admin: 09/30/21 19:02 Dose: 4 mg Documented by: Trazodone HCl (Trazodone Hcl 100 Mg Tablet) 100 mg PO BEDTIME [facility] Last Admin: 10/04/21 20:27 Dose: 100 mg Documented by: Zolpidem Tartrate (Zolpidem Tartrate 5 Mg Tablet) 5 mg PO BEDTIME [facility] Allergies Allergies Allergy/AdvReac Type Severity Reaction Status Date / Time buspirone [From BuSpar] Allergy Swelling Verified 07/23/21 19:02 chlorpromazine Allergy Anaphylaxis Verified 07/23/21 19:02 [From Thorazine] lamotrigine [From Lamictal] Allergy Rash Verified 07/23/21 19:02 Sulfa (Sulfonamide Allergy Rash Verified 07/23/21 19:02 Antibiotics) linaclotide [From Linzess] AdvReac Abdominal Verified 07/23/21 19:02 Pain quetiapine [From Seroquel] AdvReac bad side Verified 07/23/21 19:02 effects' topiramate AdvReac Fogginess Verified 07/23/21 19:02 ziprasidone [From Geodon] AdvReac psychosis Verified 07/23/21 19:02 Assessment & Plan Assessment & Plan (1) Anorexia nervosa, restricting type: Status: Acute Code(s): F50.01 - Anorexia nervosa, restricting type (2) Major depressive disorder, recurrent, moderate: Status: Acute Code(s): F33.1 - Major depressive disorder, recurrent, moderate (3) PTSD (post-traumatic stress disorder): Status: Acute Code(s): F43.10 - Post-traumatic stress disorder, unspecified (4) Cocaine use disorder: Status: Acute Code(s): F14.10 - Cocaine abuse, uncomplicated Plan Zuleyma is a 35 y.o. Female who carries a dx of PTSD, likely BPD, anorexia nervosa, polysubstance abuse, and MDD, recurrent episode. She presented to [facility] on 09/21/21 reporting passive SI, using crack cocaine in an attempt to lose weight. Pt has multiple co-morbid medical concerns including ostomy bag, urinary retention, and chronic pain. Has long hx of IPLOC, PHP, and detox. Has OP psych services, psychiatrist is Dr. Anand. 09/25 depressed, but no SI; starting to eat again; continue current med regimen 09/26 no medication changes 09/27: continue to engage in positive self talk 09/29 pt remains engaged in treatment; eating more and making healthy choices; discussed outpt [facility] and [facility]. No changes to regimen. 09/30 some nausea today, patient vomited twice, taking Zofran which resolved N/V (on Reglan for motility, Zofran for N/V) 10/01 all nasuea/vomiting resolved last night struggling with anxiety, but No suicidalilty at all and still resolved to stay safe. Pt feels she very much needs an PHP to attend, to help her stay focused on treatment while waiting for [facility] admission (which will take about a month). 10/02 worsening eat disorered thoughts; increasing belief she is fat; trying to stay hopeful about getting better, but being overcome by negative thoughts. Patients eating disordered thoughts are at a delusional level and patient is struggling, finding it harder to discern between what is real and what is disordered (believes she is really fat ). Of note, patients recent cocaine abuse was used in order to help patient not eat 10/05 patient continues to struggle however is working hard to remember that she has overcome such struggles in the past. Although she continues to think she is fat, she continues to eat. Plan: CV, Q15 min safety checks continue home meds -Will consider increasing Latuda (though will need another PA); already on both Prozac and Cymbalta -continue Cymbalta 90mg daily -continue Prozac 20mg daily (pt has tolerated both and done well at these doses for years w/out side-effects) PHP program application; ad copy writer feels that patient is working hard to stay sober, work on her issues and make healthy food choices; however, she remains vulnerable to relapse/decompensation. Bank Teller Machine Mechanic recommends that patient attend PHP while waiting for [facility] admission. Pt has a prior strong work history and generally does better when she has structure Monitor response to medications. Monitor for safety in the milieu. Discharge on stabilization. Patient seen. Chart reviewed. Discussed with team. Obtain collateral contact info as needed I spent minutes with the patient and/or on the patient floor today, greater than?50% of which was spent counseling/coordinating care. Patient educated on: diagnosis and substance abuse Informed Consent: understands Reason for contiued inpatient stay Substantial Risk for: rapid decompensation
[2021-10-05] MEDS: Gabapentin 400 MG CAPSULE PO (18:40)
[2021-10-05 21:50] VITALS: BP 120/78; PULSE 70; TEMP 36.6
[2021-10-05] MEDS: cloNIDine HCL 0.1 MG TABLET PO (22:40)
[2021-10-05] MEDS: diphenhydrAMINE HCL 25 MG TABLET PO (22:41)
[2021-10-05] MEDS: Lurasidone HCl 40 MG TABLET PO (22:41)
[2021-10-05] MEDS: traZODone HCL 100 MG TABLET PO (22:41)
[2021-10-05] MEDS: Zolpidem Tartrate 5 MG TABLET PO (22:43)
[2021-10-06] MEDS: Bethanechol Chloride 25 MG TABLET PO ×3 (08:10→16:19)
[2021-10-06] MEDS: Benztropine Mesylate 1 MG TABLET PO (08:10)
[2021-10-06] MEDS: FLUoxetine HCl 20 MG CAPSULE PO (08:10)
[2021-10-06] MEDS: Gabapentin 400 MG CAPSULE 800 MG PO ×2 (08:10→22:37)
[2021-10-06] MEDS: DULoxetine HCl 30 MG CAPSULE.DR 90 MG PO (08:14)
[2021-10-06 08:30] VITALS: BP 120/84; PULSE 77; TEMP 37
[2021-10-06] MEDS: Acetaminophen 325 MG TABLET 650 MG PO ×2 (14:10→21:46)
--- NOTE | 2021-10-06 17:00 | HO.PSYCHPN ---
Subjective Subjective Date of Service: 10/06/21 Reason For Visit: depression/SI Interim History: Patient reports doing little better. Patient got her period which is uncommon and intermittent but also signed that she is physically healthy ear. She says this is anxiety provoking since it triggers the anorexic disordered thoughts. Patient reports that she continues to have eating disorder thoughts, thinking she is fat, or being bad at being anorexic. She says the anorexic disordered thoughts are powerful and almost come across as angry and berating that she continues to eat. She says that the healthy part of her however has remained steady, continuing to eat continuing to try to reframe her thinking and tell herself that gaining weight means that her organs are going to be healthy, that her relationships will be healthier, that she will be able to achieve her goal such as getting back to work. Despite these struggles. Patient's mood is overall improving; no SI at all. She feels that she is probably ready to discharge soon with plans to go to a [facility] while waiting to get into [facility] or another eating disorder program. Mental Status Exam Mental Status Exam Narrative: Pt is alert and oriented; behavior is cooperative, friendly and calm; patient is not in distress; dressed in casual attire with good hygiene; mood is described as it's been rough...but better and affect brighter, more calm; not tearful; eye contact appropriate; Speech is normal rate, volume and prosody and not pressured; no psychomotor agitation/retardation present; thought process is organized and goal directed; Thought content is on battling thoughts that she is overweight and trying to get back healthy perspective on her illness; otherwise pertinent to relevant topics and without any delusional content, paranoid ideations or grandiosity; denies any SI/HI. There is no evidence of perceptual disturbance.? Patients insight and judgment are improving, impaired but adequate and likely close to baseline. Diagnostics Vital Signs (24Hr): Vital Signs - 24 hr 10/05/21 21:50 10/06/21 08:30 Temperature 97.8 F 98.6 F Pulse Rate 70 77 Blood Pressure 120/78 120/84 BMI result Body Mass Index 16.9 Labs Results: 09/25/21 08:47 Medications Medications Current Medications Acetaminophen (Acetaminophen 325 Mg Tablet) 650 mg PO Q6H PRN PRN Reason: HEADACHE/MILD PAIN Last Admin: 10/06/21 14:10 Dose: 650 mg Documented by: Al Hydroxide/Mg Hydroxide (Magnesium Hydrox/Alum Hydrox 30 Ml Oral.Susp) 30 ml PO Q6H PRN PRN Reason: Heartburn/Nausea Benzocaine (Throat Lozenge, Medicated Lozenge) 1 lozenge MUCOUS MEM Q2H PRN PRN Reason: Sore Throat Last Admin: 10/04/21 21:12 Dose: 1 lozenge Documented by: Benztropine Mesylate (Benztropine Mesylate 1 Mg Tablet) 1 mg PO BID PRN PRN Reason: EPS/Stiffness Last Admin: 10/06/21 08:10 Dose: 1 mg Documented by: Bethanechol Chloride (Bethanechol Chloride 25 Mg Tablet) 25 mg PO TIDAC [facility] Last Admin: 10/06/21 16:19 Dose: 25 mg Documented by: Bethanechol Chloride (Bethanechol Chloride 25 Mg Tablet) 25 mg PO DAILY PRN PRN Reason: if misses a dose Last Admin: 09/27/21 15:01 Dose: 25 mg Documented by: Clonidine HCl (Clonidine Hcl 0.1 Mg Tablet) 0.1 mg PO TID PRN; Protocol PRN Reason: for daytime anxiety and bedtime hyperarousal Clonidine HCl (Clonidine Hcl 0.1 Mg Tablet) 0.1 mg PO BEDTIME [facility]; Protocol Last Admin: 10/05/21 22:40 Dose: 0.1 mg Documented by: Diphenhydramine HCl (Diphenhydramine Hcl 25 Mg Tablet) 25 mg PO BEDTIME [facility] Last Admin: 10/05/21 22:41 Dose: 25 mg Documented by: Duloxetine HCl (Duloxetine Hcl 30 Mg Capsule.Dr) 90 mg PO DAILY [facility] Last Admin: 10/06/21 08:14 Dose: 90 mg Documented by: Fluoxetine HCl (Fluoxetine Hcl 20 Mg Capsule) 20 mg PO DAILY [facility] Last Admin: 10/06/21 08:10 Dose: 20 mg Documented by: Gabapentin (Gabapentin 400 Mg Capsule) 400 mg PO DAILY PRN PRN Reason: BREAKTHROUGH NEUROPATHIC PAIN Last Admin: 10/05/21 18:40 Dose: 400 mg Documented by: Gabapentin (Gabapentin 400 Mg Capsule) 800 mg PO BID [facility] Last Admin: 10/06/21 08:10 Dose: 800 mg Documented by: Hydroxyzine HCl (Hydroxyzine Hcl 25 Mg Tablet) 25 mg PO BID PRN PRN Reason: Anxiety Last Admin: 09/30/21 16:01 Dose: 25 mg Documented by: Loperamide HCl (Loperamide Hcl 2 Mg Capsule) 4 mg PO Q4H PRN PRN Reason: Diarrhea Last Admin: 09/22/21 09:20 Dose: 4 mg Documented by: Lurasidone HCl (Lurasidone Hcl 40 Mg Tablet) 40 mg PO BEDTIME [facility] Last Admin: 10/05/21 22:41 Dose: 40 mg Documented by: Metoclopramide HCl (Metoclopramide Hcl 5 Mg Tablet) 5 mg PO TIDAC PRN PRN Reason: nausea and vomiting; motility Last Admin: 10/04/21 17:00 Dose: 5 mg Documented by: Nicotine (Nicotine 21 Mg Patch.Td24) 21 mg TRANSDERMA DAILY PRN PRN Reason: nicotine cravings Nicotine Polacrilex (Nicotine Polacrilex 2 Mg Gum) 4 mg BUCCAL Q2H PRN PRN Reason: Nicotine Cravings Ondansetron HCl (Ondansetron Odt 4 Mg Tab.Rapdis) 4 mg TRANSLINGU Q4H PRN PRN Reason: Nausea Last Admin: 09/30/21 19:02 Dose: 4 mg Documented by: Trazodone HCl (Trazodone Hcl 100 Mg Tablet) 100 mg PO BEDTIME [facility] Last Admin: 10/05/21 22:41 Dose: 100 mg Documented by: Zolpidem Tartrate (Zolpidem Tartrate 5 Mg Tablet) 5 mg PO BEDTIME [facility] Last Admin: 10/05/21 22:43 Dose: 5 mg Documented by: Allergies Allergies Allergy/AdvReac Type Severity Reaction Status Date / Time buspirone [From BuSpar] Allergy Swelling Verified 07/23/21 19:02 chlorpromazine Allergy Anaphylaxis Verified 07/23/21 19:02 [From Thorazine] lamotrigine [From Lamictal] Allergy Rash Verified 07/23/21 19:02 Sulfa (Sulfonamide Allergy Rash Verified 07/23/21 19:02 Antibiotics) linaclotide [From Linzess] AdvReac Abdominal Verified 07/23/21 19:02 Pain quetiapine [From Seroquel] AdvReac bad side Verified 07/23/21 19:02 effects' topiramate AdvReac Fogginess Verified 07/23/21 19:02 ziprasidone [From Geodon] AdvReac psychosis Verified 07/23/21 19:02 Assessment & Plan Assessment & Plan (1) Anorexia nervosa, restricting type: Status: Acute Code(s): F50.01 - Anorexia nervosa, restricting type (2) Major depressive disorder, recurrent, moderate: Status: Acute Code(s): F33.1 - Major depressive disorder, recurrent, moderate (3) PTSD (post-traumatic stress disorder): Status: Acute Code(s): F43.10 - Post-traumatic stress disorder, unspecified (4) Cocaine use disorder: Status: Acute Code(s): F14.10 - Cocaine abuse, uncomplicated Plan Zuleyma is a 35 y.o. Female who carries a dx of PTSD, likely BPD, anorexia nervosa, polysubstance abuse, and MDD, recurrent episode. She presented to [facility] on 09/21/21 reporting passive SI, using crack cocaine in an attempt to lose weight. Pt has multiple co-morbid medical concerns including ostomy bag, urinary retention, and chronic pain. Has long hx of IPLOC, PHP, and detox. Has OP psych services, psychiatrist is Dr. Anand. 09/25 depressed, but no SI; starting to eat again; continue current med regimen 09/26 no medication changes 09/27: continue to engage in positive self talk 09/29 pt remains engaged in treatment; eating more and making healthy choices; discussed outpt [facility] and [facility]. No changes to regimen. 09/30 some nausea today, patient vomited twice, taking Zofran which resolved N/V (on Reglan for motility, Zofran for N/V) 10/01 all nasuea/vomiting resolved last night struggling with anxiety, but No suicidalilty at all and still resolved to stay safe. Pt feels she very much needs an PHP to attend, to help her stay focused on treatment while waiting for [facility] admission (which will take about a month). 10/02 worsening eat disorered thoughts; increasing belief she is fat; trying to stay hopeful about getting better, but being overcome by negative thoughts. Patients eating disordered thoughts are at a delusional level and patient is struggling, finding it harder to discern between what is real and what is disordered (believes she is really fat ). Of note, patients recent cocaine abuse was used in order to help patient not eat 4/ patient continues to struggle however is working hard to remember that she has overcome such struggles in the past. Although she continues to think she is fat, she continues to eat. 4/ patient doing better. Mood is improved, no SI; continues to gee eating disorder thoughts and feels she is making progress. Feeling more stable and progressing towards discharge Plan: CV, Q15 min safety checks continue home meds -Continue Latuda; considered increasing but patient is stabilizing on current dose; -continue Cymbalta 90mg daily -continue Prozac 20mg daily (pt has tolerated both and done well at these doses for years w/out side-effects) PHP program application; singer songwriter feels that patient is working hard to stay sober, work on her issues and make healthy food choices; however, she remains vulnerable to relapse/decompensation. Background Investigator recommends that patient attend PHP while waiting for [facility] admission. Pt has a prior strong work history and generally does better when she has structure Monitor response to medications. Monitor for safety in the milieu. Discharge on stabilization. Patient seen. Chart reviewed. Discussed with team. Obtain collateral contact info as needed I spent minutes with the patient and/or on the patient floor today, greater than?50% of which was spent counseling/coordinating care. Patient educated on: diagnosis and therapeutic strategies Informed Consent: understands Reason for contiued inpatient stay Substantial Risk for: stable for discharge
[2021-10-06 18:00] VITALS: BP 108/61; PULSE 68; RESP 14; O2SAT 100
[2021-10-06] MEDS: diphenhydrAMINE HCL 25 MG TABLET PO (22:37)
[2021-10-06] MEDS: cloNIDine HCL 0.1 MG TABLET PO (22:38)
[2021-10-06] MEDS: traZODone HCL 100 MG TABLET PO (22:38)
[2021-10-06] MEDS: Zolpidem Tartrate 5 MG TABLET PO (22:39)
[2021-10-06] MEDS: Lurasidone HCl 40 MG TABLET PO (22:39)
[2021-10-07 06:00] VITALS: BP 110/55; PULSE 69; RESP 15; TEMP 37.1; O2SAT 98
[2021-10-07] MEDS: DULoxetine HCl 30 MG CAPSULE.DR 90 MG PO (08:37)
[2021-10-07] MEDS: Gabapentin 400 MG CAPSULE 800 MG PO ×2 (08:38→22:54)
[2021-10-07] MEDS: FLUoxetine HCl 20 MG CAPSULE PO (08:38)
[2021-10-07] MEDS: Bethanechol Chloride 25 MG TABLET PO ×3 (08:39→17:20)
[2021-10-07] MEDS: Benztropine Mesylate 1 MG TABLET PO (09:21)
--- NOTE | 2021-10-07 10:42 | P.PNPSI_ITS ---
Subjective Subjective Date of Service: 10/07/21 Reason For Visit: depression/SI Interim History: Patient reports that she is doing overall okay and feels ready to discharge tomorrow. She realize that her clonazepam at bedtime had fallen off and understands this to be the reason she has been having trouble sleeping. 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 She will continue to work on seeing if she can taper it down over time with her outpatient provider. She understands the risks of substance abuse relapse but is hopeful about staying stable and sober and hopes that [facility] at [place] will work out. Mental Status Exam Mental Status Exam Narrative: Pt is alert and oriented; behavior is cooperative, friendly and calm; patient is not in distress; dressed in casual attire with good hygiene; mood is described as ok and affect euthymic; eye contact appropriate; Speech is normal rate, volume and prosody and not pressured; no psychomotor agitation/retardation present; thought process is organized and goal directed; Thought content is on battling thoughts that she is overweight and working on having a healthy perspective on her illness; otherwise pertinent to relevant topics and without any delusional content, paranoid ideations or grandiosity; denies any SI/HI. There is no evidence of perceptual disturbance.? Patients insight and judgment are improving, impaired but adequate and at baseline. Diagnostics Vital Signs (24Hr): Vital Signs - 24 hr 10/06/21 18:00 10/07/21 06:00 Temperature 98.8 F Pulse Rate 68 69 Respiratory Rate 14 15 Blood Pressure 108/61 110/55 L Pulse Oximetry 100 98 BMI result Body Mass Index 16.9 Labs Results: 09/25/21 08:47 Medications Medications Current Medications Acetaminophen (Acetaminophen 325 Mg Tablet) 650 mg PO Q6H PRN PRN Reason: HEADACHE/MILD PAIN Last Admin: 10/06/21 21:46 Dose: 650 mg Documented by: Al Hydroxide/Mg Hydroxide (Magnesium Hydrox/Alum Hydrox 30 Ml Oral.Susp) 30 ml PO Q6H PRN PRN Reason: Heartburn/Nausea Benzocaine (Throat Lozenge, Medicated Lozenge) 1 lozenge MUCOUS MEM Q2H PRN PRN Reason: Sore Throat Last Admin: 10/04/21 21:12 Dose: 1 lozenge Documented by: Benztropine Mesylate (Benztropine Mesylate 1 Mg Tablet) 1 mg PO BID PRN PRN Reason: EPS/Stiffness Last Admin: 10/07/21 09:21 Dose: 1 mg Documented by: Bethanechol Chloride (Bethanechol Chloride 25 Mg Tablet) 25 mg PO TIDAC AMELIA Last Admin: 10/07/21 08:39 Dose: 25 mg Documented by: Bethanechol Chloride (Bethanechol Chloride 25 Mg Tablet) 25 mg PO DAILY PRN PRN Reason: if misses a dose Last Admin: 09/27/21 15:01 Dose: 25 mg Documented by: Clonazepam (Clonazepam 1 Mg Tablet) 1 mg PO BEDTIME AMELIA Clonidine HCl (Clonidine Hcl 0.1 Mg Tablet) 0.1 mg PO TID PRN; Protocol PRN Reason: for daytime anxiety and bedtime hyperarousal Clonidine HCl (Clonidine Hcl 0.1 Mg Tablet) 0.1 mg PO BEDTIME AMELIA; Protocol Last Admin: 10/06/21 22:38 Dose: 0.1 mg Documented by: Diphenhydramine HCl (Diphenhydramine Hcl 25 Mg Tablet) 25 mg PO BEDTIME AMELIA Last Admin: 10/06/21 22:37 Dose: 25 mg Documented by: Duloxetine HCl (Duloxetine Hcl 30 Mg Capsule.Dr) 90 mg PO DAILY AMELIA Last Admin: 10/07/21 08:37 Dose: 90 mg Documented by: Fluoxetine HCl (Fluoxetine Hcl 20 Mg Capsule) 20 mg PO DAILY AMELIA Last Admin: 10/07/21 08:38 Dose: 20 mg Documented by: Gabapentin (Gabapentin 400 Mg Capsule) 400 mg PO DAILY PRN PRN Reason: BREAKTHROUGH NEUROPATHIC PAIN Last Admin: 10/05/21 18:40 Dose: 400 mg Documented by: Gabapentin (Gabapentin 400 Mg Capsule) 800 mg PO BID AMELIA Last Admin: 10/07/21 08:38 Dose: 800 mg Documented by: Hydroxyzine HCl (Hydroxyzine Hcl 25 Mg Tablet) 25 mg PO BID PRN PRN Reason: Anxiety Last Admin: 09/30/21 16:01 Dose: 25 mg Documented by: Loperamide HCl (Loperamide Hcl 2 Mg Capsule) 4 mg PO Q4H PRN PRN Reason: Diarrhea Last Admin: 09/22/21 09:20 Dose: 4 mg Documented by: Lurasidone HCl (Lurasidone Hcl 40 Mg Tablet) 40 mg PO BEDTIME [facility] Last Admin: 10/06/21 22:39 Dose: 40 mg Documented by: Metoclopramide HCl (Metoclopramide Hcl 5 Mg Tablet) 5 mg PO TIDAC PRN PRN Reason: nausea and vomiting; motility Last Admin: 10/04/21 17:00 Dose: 5 mg Documented by: Nicotine (Nicotine 21 Mg Patch.Td24) 21 mg TRANSDERMA DAILY PRN PRN Reason: nicotine cravings Nicotine Polacrilex (Nicotine Polacrilex 2 Mg Gum) 4 mg BUCCAL Q2H PRN PRN Reason: Nicotine Cravings Ondansetron HCl (Ondansetron Odt 4 Mg Tab.Rapdis) 4 mg TRANSLINGU Q4H PRN PRN Reason: Nausea Last Admin: 09/30/21 19:02 Dose: 4 mg Documented by: Trazodone HCl (Trazodone Hcl 100 Mg Tablet) 100 mg PO BEDTIME [facility] Last Admin: 10/06/21 22:38 Dose: 100 mg Documented by: Zolpidem Tartrate (Zolpidem Tartrate 5 Mg Tablet) 5 mg PO BEDTIME [facility] Last Admin: 10/06/21 22:39 Dose: 5 mg Documented by: Allergies Allergies Allergy/AdvReac Type Severity Reaction Status Date / Time buspirone [From BuSpar] Allergy Swelling Verified 07/23/21 19:02 chlorpromazine Allergy Anaphylaxis Verified 07/23/21 19:02 [From Thorazine] lamotrigine [From Lamictal] Allergy Rash Verified 07/23/21 19:02 Sulfa (Sulfonamide Allergy Rash Verified 07/23/21 19:02 Antibiotics) linaclotide [From Linzess] AdvReac Abdominal Verified 07/23/21 19:02 Pain quetiapine [From Seroquel] AdvReac bad side Verified 07/23/21 19:02 effects' topiramate AdvReac Fogginess Verified 07/23/21 19:02 ziprasidone [From Geodon] AdvReac psychosis Verified 07/23/21 19:02 Assessment & Plan Assessment & Plan (1) Anorexia nervosa, restricting type: Status: Acute Code(s): F50.01 - Anorexia nervosa, restricting type (2) Major depressive disorder, recurrent, moderate: Status: Acute Code(s): F33.1 - Major depressive disorder, recurrent, moderate (3) PTSD (post-traumatic stress disorder): Status: Acute Code(s): F43.10 - Post-traumatic stress disorder, unspecified (4) Cocaine use disorder: Status: Acute Code(s): F14.10 - Cocaine abuse, uncomplicated Plan Zuleyma is a 35 y.o. Female who carries a dx of PTSD, likely BPD, anorexia nervosa, polysubstance abuse, and MDD, recurrent episode. She presented to [facility] ED on reporting passive SI, using crack cocaine in an attempt to lose weight. Pt has multiple co-morbid medical concerns including ostomy bag, urinary retention, and chronic pain. Has long hx of IPLOC, PHP, and detox. Has OP psych services, psychiatrist is Dr. Anand. 09/25 depressed, but no SI; starting to eat again; continue current med regimen 09/26 no medication changes 09/27: continue to engage in positive self talk 09/29 pt remains engaged in treatment; eating more and making healthy choices; discussed outpt [facility] and cornelio. No changes to regimen. 09/30 some nausea today, patient vomited twice, taking Zofran which resolved N/V (on Reglan for motility, Zofran for N/V) 10/01 all nasuea/vomiting resolved last night struggling with anxiety, but No suicidalilty at all and still resolved to stay safe. Pt feels she very much needs an PHP to attend, to help her stay focused on treatment while waiting for [place] admission (which will take about a month). 10/02 worsening eat disorered thoughts; increasing belief she is fat; trying to stay hopeful about getting better, but being overcome by negative thoughts. Patients eating disordered thoughts are at a delusional level and patient is str uggling, finding it harder to discern between what is real and what is disordered (believes she is really fat ). Of note, patients recent cocaine abuse was used in order to help patient not eat 10/05 patient continues to struggle however is working hard to remember that she has overcome such struggles in the past. Although she continues to think she is fat, she continues to eat. 10/06 patient doing better. Mood is improved, no SI; continues to gee eating disorder thoughts and feels she is making progress. Feeling more stable and progressing towards discharge / patient feels ready for discharge tomorrow and patient is at baseline. She denies any SI continues to gee eating- disordered thinking. 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 Also discussed is that patient remains at risk for future decompensation, relapse or to get worsening eating disorder symptoms. However as mentioned, these are chronic issues of which patient has been dealing with for years; they will not resolve with a longer stay on this inpatient unit but rather require continued, consistent, long-term treatment of which patient is engaged. She remains invested in treatment and plans to continue working on her issues with her outpt therapist in the community. Patient is not in imminent risk for harm to self or others and her request for discharge is appropriate. Patient will return to live at her home with her very supportive partner. Her other immediate plans are to attend PHP at [place] and then hopefully to be admitted to outpatient eating disorder program at [place]. Plan: CV, Q15 min safety checks continue home meds -Continue Latuda; considered increasing but patient is stabilizing on current dose; -continue Cymbalta 90mg daily -continue Prozac 20mg daily (pt has tolerated both and done well at these doses for years w/out side-effects) [facility] program application; fiction and nonfiction prose writer feels that patient is working hard to stay sober, work on her issues and make healthy food choices; however, she remains vulnerable to relapse/decompensation. Coremaker Supervisor recommends that patient attend [facility] while waiting for [place] admission. Pt has a prior strong work history and generally does better when she has structure Monitor response to medications. Monitor for safety in the milieu. Discharge on stabilization. Patient seen. Chart reviewed. Discussed with team. Obtain collateral contact info as needed I spent minutes with the patient and/or on the patient floor today, prema ter than?50% of which was spent counseling/coordinating care. Patient educated on: diagnosis, substance abuse and therapeutic strategies Informed Consent: understands Reason for contiued inpatient stay Substantial Risk for: stable for discharge
[2021-10-07] MEDS: clonazePAM 0.5 MG TABLET PO (12:56)
[2021-10-07 18:00] VITALS: BP 126/74; PULSE 76; TEMP 36.9; O2SAT 98
[2021-10-07] MEDS: Throat Lozenge, Medicated LOZENGE 1 LOZENGE MUCOUS MEM (21:43)
[2021-10-07] MEDS: traZODone HCL 100 MG TABLET PO (22:53)
[2021-10-07] MEDS: Lurasidone HCl 40 MG TABLET PO (22:53)
[2021-10-07] MEDS: clonazePAM 1 MG TABLET 2 MG PO (22:53)
[2021-10-07] MEDS: Zolpidem Tartrate 5 MG TABLET PO (22:54)
[2021-10-07] MEDS: cloNIDine HCL 0.1 MG TABLET PO (22:54)
[2021-10-07] MEDS: diphenhydrAMINE HCL 25 MG TABLET PO (22:54)
[2021-10-08 06:00] VITALS: BP 100/59; PULSE 72; RESP 12; TEMP 37.1; O2SAT 98
[2021-10-08 07:00] VITALS: BMI 18.6
[2021-10-08] MEDS: DULoxetine HCl 30 MG CAPSULE.DR 90 MG PO (08:51)
[2021-10-08] MEDS: FLUoxetine HCl 20 MG CAPSULE PO (08:51)
[2021-10-08] MEDS: Gabapentin 400 MG CAPSULE 800 MG PO (08:51)
[2021-10-08] MEDS: Bethanechol Chloride 25 MG TABLET PO ×2 (08:52→12:15)
--- NOTE | 2021-10-08 09:49 | PM.PSYDC ---
DS: Providers Provider Date of Service: 10/08/21 Date of admission: 09/24/21 11:33 Date of discharge: 10/08/21 Primary care physician: Caroline Thapa MD Admitting clinician: Lyndsey Mckeon Attending physician on discharge: Chirag Alcazar DS: Diagnosis Discharge Diagnosis (1) Anorexia nervosa, restricting type: Status: Acute (2) Major depressive disorder, recurrent, moderate: Status: Acute (3) PTSD (post-traumatic stress disorder): Status: Acute (4) Cocaine use disorder: Status: Acute DS: Medications Discharge Medications Home Medications: Home Medications Medication Instructions Recorded Confirmed loperamide 2 mg capsule 2 cap PO Q4H PRN 07/23/21 09/21/21 acetaminophen 325 mg tablet 650 mg PO Q6H PRN 08/02/21 09/21/21 zolpidem 5 mg tablet 5 mg PO BEDTIME 08/02/21 09/21/21 Previous Rx's Medication Instructions Recorded clonazepam 2 mg tablet (Klonopin) 2 mg PO BEDTIME #7 tab 10/31/20 bethanechol chloride 25 mg tablet 25 mg PO TIDAC 30 Days #90 tab 08/11/21 clonidine HCl 0.1 mg tablet 0.1 mg PO TID PRN 30 Days #90 tab 08/11/21 diphenhydramine HCl 25 mg capsule 25 mg PO BEDTIME 30 Days #30 cap 08/11/21 (Wal-Sleep Z) duloxetine 30 mg capsule,delayed 90 mg PO DAILY 30 Days #90 cap 08/11/21 release fluoxetine 20 mg capsule 20 mg PO DAILY 30 Days #30 cap 08/11/21 gabapentin 400 mg capsule 400 mg PO DAILY PRN 30 Days #30 cap 08/11/21 gabapentin 800 mg tablet 800 mg PO BID 30 Days #60 tab 08/11/21 hydroxyzine HCl 25 mg tablet 25 mg PO BID PRN 30 Days #30 tab 08/11/21 lurasidone 40 mg tablet (Latuda) 40 mg PO BEDTIME 30 Days #30 tab 08/11/21 metoclopramide HCl 5 mg tablet 5 mg PO TIDAC PRN 30 Days #90 tab 08/11/21 trazodone 100 mg tablet 100 mg PO BEDTIME 30 Days #30 tab 08/11/21 Mental Status Exam Mental Status Exam Narrative: Pt is alert and oriented; behavior is cooperative, friendly and calm; patient is not in distress; dressed in casual attire with good hygiene; mood is described as good and affect congruent; eye contact appropriate; Speech is normal rate, volume and prosody and not pressured; no psychomotor agitation/retardation present; thought process is organized and goal directed; Thought content is on treatment, discharge plan, continuing to gee eating disordered thoughts; otherwise pertinent to relevant topics and without any delusional content, paranoid ideations or grandiosity; denies any SI/HI. There is no evidence of perceptual disturbance.? Patients insight and judgment are improving, impaired but adequate and at baseline. DS: Summary Hospital Course Hospital Course: Zuleyma is a 35 y.o. Female who carries a dx of PTSD, likely BPD, anorexia nervosa, polysubstance abuse, and MDD, recurrent episode. She presented to [facility] ED on 09/21/21 reporting passive SI, using crack cocaine in an attempt to lose weight. Pt has multiple co-morbid medical concerns including ostomy bag, urinary retention, and chronic pain. Has long hx of IPLOC, PHP, and detox. Has OP psych services, psychiatrist is Dr. Anand. On admission, patient was depressed but was without any SI. She was grateful for the admission wanting help to get sober and start eating again. Patient did continue to eat consistently. Her medications were continued as they had been effective; she developed some mild intermittent dystonia and was started on Cogentin p.r.n. which was effective. On the unit patient was in good behavioral and impulse control and was appropriate with peers and staff. She was very engaged in therapy, attending groups and forthcoming in 1 on 1 sessions. Patient shared about her daily struggles with challenging her eating disordered thoughts which would tried to convince her that she is overweight; despite this challenge she remained able to pursue healthy behaviors and continued to eat. Patient remained hopeful of getting into [place]'s outpatient eating disorder program feeling she needs this help and structure to continue pursuing health and stability. While on the 1.5 month wait list to get into [place], patient was concerned about her vulnerability to relapse with substance abuse and very much wanted to participate in a PHP program feeling this would significantly help her with sobriety and patient and social work team pursued this course. Patient's depression cleared and her mood was hopeful and optimistic; her affect was also noticeably brighter. Patient felt ready for discharge and commercial real estate underwriter and team agreed patient was appropriate to continue treatment as an outpatient. While patient has significant years of consistent sobriety and relatively healthy eating habits she remains at risk for future decompensation, relapse or developing worsening eating disorder symptoms; this was discussed and patient understands that these struggles will likely remain for sometime with varying degrees of intensity. However, these are chronic issues of which patient has been dealing with for years and both agree that progress requires continued, consistent, long-term outpatient treatment of which patient is engaged. She remains invested in treatment and plans to continue working on her issues with her outpt therapist in the community.? Patient is not in imminent risk for harm to self or others and her request for discharge is appropriate.? Patient will return to live at her home with her very supportive partner.? Her other immediate plans are to attend [facility] at [place] and then hopefully to be admitted to outpatient eating disorder program at [place]. Time spent discussing smoking cessation with patient: 3 to 10 minutes (non-smoker) Status at Discharge Functional status at discharge: independent ambulation Overall status at discharge: patient is progressing back to baseline Time Spent with Patient Time attestation: Total time spent providing and/or coordinating discharge services: Time spent: Greater than 30 minutes Discharge Plan Discharge Patient Disposition: Home, Self-Care Discharge Diagnosis: Anorexia Nervosa, restricting type Referrals: Psychiatry: Dr. Lauro James [Other] - 10/22/21 9:30 am (This is an in-office appointment) Partial Hospitalization Program: [facility] [Other] - 10/09/21 9:15 am (This is a virtual Intake appointment. You will be sent the Zoom link prior to the appointment time) Therapy: Shiloh Brady [Other] - 10/09/21 3:00 pm (This is a Telehealth appointment) [facility] [Other] - 1 Week (Please contact Admissions at [facility] to complete a new intake assessment to be added to their [facility] waitlist. You are currently on their waitlist for inpatient treatment) Caroline Thapa MD [Primary Care Provider] - 10/15/21 10:30 am (in office) Discharge Medications: New benztropine 1 mg Tablet 1 mg PO BID PRN (Reason: EPS/dystonia) 30 Days Qty: 30 0RF Continued loperamide 2 mg capsule 2 cap PO Q4H PRN (Reason: Diarrhea) 0RF trazodone 100 mg Tablet 100 mg PO BEDTIME 30 Days Qty: 30 0RF metoclopramide HCl 5 mg Tablet 5 mg PO TIDAC PRN (Reason: nausea and vomiting; motility) 30 Days Qty: 90 0RF clonidine HCl 0.1 mg Tablet 0.1 mg PO TID PRN (Reason: for daytime anxiety and bedtime hyperarousal) 30 Days Qty: 90 0RF gabapentin 400 mg Capsule 400 mg PO DAILY PRN (Reason: BREAKTHROUGH NEUROPATHIC PAIN) 30 Days Qty: 30 0RF bethanechol chloride 25 mg tablet 25 mg PO TIDAC 30 Days Qty: 90 0RF gabapentin 800 mg Tablet 800 mg PO BID 30 Days Qty: 60 0RF diphenhydramine HCl [Wal-Sleep Z] 25 mg Capsule 25 mg PO BEDTIME 30 Days Qty: 30 0RF fluoxetine 20 mg Capsule 20 mg PO DAILY 30 Days Qty: 30 0RF duloxetine 30 mg Capsule,Delayed Release(Dr/Ec) 90 mg PO DAILY 30 Days Qty: 90 0RF hydroxyzine HCl 25 mg Tablet 25 mg PO BID PRN (Reason: Anxiety) 30 Days Qty: 30 0RF zolpidem 5 mg Tablet 5 mg PO BEDTIME 0RF acetaminophen 325 mg Tablet 650 mg PO Q6H PRN (Reason: HEADACHE/MILD PAIN) 0RF Latuda 40 mg Tablet 40 mg PO BEDTIME 30 Days Qty: 30 1RF clonazepam [Klonopin] 2 mg tablet 2 mg PO BEDTIME 30 Days Qty: 30 0RF Discharge Orders: Discharge Order (Routine); Ordered 10/08/21 Ordered By: Chirag Alcazar Diet: other Activity on Discharge: As tolerated Stand Alone Forms: Patient Portal Discharge page, Community Support Care Plan Goals: Maintain mood and safe behaviors Take medications as prescribed Continue to pursue sobriety Practice coping skills Continue with outpatient providers and reach out to them as needed Health Concerns: Mood stability and behaviors Sobriety Ileostomy SMA Health concerns associated with restricting calorie intake Plan of Treatment: Follow up with your PCP, psychiatric provider and other outpatient providers regarding above concerns Take medications as prescribed PHP Assessment: Risk assessment at time of discharge:? Patient was interviewed prior to discharge and found to be fully oriented and without any SI or HI. Patient has insight and demonstrates good judgment in terms of wanting to pursue treatment. Patient is not in imminent risk of harm to self or others and has a safety plan that includes presenting to the closest ER or calling 911 if feeling unsafe.? Patient has been observed closely by nursing and unit staff throughout admission; patient has not engaged in any behaviors that suggest dangerousness to self or others and has demonstrated appropriate behaviors and impulse control Discharge Date/Time: 10/08/21 16:26
[2021-10-08] MEDS: Naloxone HCl Nasal TAKE HOME 4 MG SPRAY NOSTRILALT (12:15)
== END 2021-10-08 16:26 | disposition home or self-care (01) | DRG 751 ==
LOC: HO.ED 09-22 08:06 → HO.PM5 09-24 11:36
PROVIDERS: Physician Assistant; Admitting Provider Psychiatry & Neurology Psychiatry; Emergency Provider Emergency Medicine Emergency Medical Services; PCP Family Medicine; Visit Provider Psychiatry & Neurology Psychiatry
DX: F33.1 Major depressive disorder, recurrent, moderate (principal); F50.01 Anorexia nervosa, restricting type; R45.851 Suicidal ideations; F11.10 Opioid abuse, uncomplicated; F43.10 Post-traumatic stress disorder, unspecified; Z20.822 Contact with and (suspected) exposure to COVID-19; Z56.0 Unemployment, unspecified; Z68.1 Body mass index [BMI] 19.9 or less, adult; Z93.2 Ileostomy status; Z98.1 Arthrodesis status; Z87.891 Personal history of nicotine dependence; Z88.2 Allergy status to sulfonamides; Z79.899 Other long term (current) drug therapy
CPT/HCPCS: 36415; 80053; 80307; 81025; 87635; 93005; 99285; Q0163

== ENCOUNTER 2021-11-23 12:50 | Inpatient (IN) | payer OTHER, MEDICAID, SELFPAY ==
[2021-11-23 13:04] VITALS: BP 115/73; PULSE 75; RESP 16; TEMP 36.6; O2SAT 97; BMI 16.9
[2021-11-23 13:26] LABS: MANUAL DIFF FLAG NO
[2021-11-23 13:29] LABS: Basophils Percent Auto 0.7 % (0-2); Eosinophils Absolute Auto 0.1 X10*3/uL (0.0-0.4); Hematocrit 37.1 % (37.0-47.0); Hemoglobin 12.2 g/dl (12.0-16.0); Imm Gran Abs Auto 0.01 X10*3/uL (0.00-0.03); Imm Gran Pct Auto 0.2 % (0.0-0.4); Lymphocytes Absolute Auto 1.6 X10*3/uL (1.2-4.9); Lymphocytes Percent Auto 40.1 % (20-40); Mean Corpuscular HGB Conc 32.9 g/dl (31.0-35.0); Mean Corpuscular Hemoglobin 29.3 pg (27.0-33.0); Mean Platelet Volume 9.1 fL (9.4-12.3); Monocytes Absolute Auto 0.5 X10*3/uL (0.1-1.2); Monocytes Percent Auto 11.5 % (2-11); Neutrophils Absolute Auto 1.9 x10*3/uL (2.0-8.3); Neutrophils Percent Auto 45.5 % (45-73); Platelet Count 263 X10*3/uL (160-400); Red Blood Count 4.17 X10*6/uL (4.20-5.50); Red Cell Distribution Width 13.1 % (11.0-16.0); White Blood Count 4.1 X10*3/uL (4.8-10.8)
[2021-11-23 13:43] LABS: Ethanol < 10 mg/dL
[2021-11-23 13:48] LABS: Alanine Aminotransferase 50 U/L (0-31); Albumin Level 3.9 g/dL (3.5-5.0); Alkaline Phosphatase 58 U/L (39-117); Anion Gap 14 (12-20); Aspartate Amino Transferase 36 U/L (5-31); Bilirubin Total 0.6 mg/dL (0.0-1.0); Blood Urea Nitrogen 7 mg/dL (9-16); Calcium 10.4 mg/dL (8.4-10.2); Carbon Dioxide 26 mmol/L (22-29); Chloride 102 mmol/L (96-108); Creatinine Clr Calc Pharmacy 73.2; Estimated Glomerular Filt Rate > 60; Glucose Random 93 mg/dL (60-115); Potassium 4.8 mmol/L (3.3-5.1); Sodium 137 mmol/L (135-145)
--- NOTE | 2021-11-23 14:09 | ED_ITS ---
HPI - Psych General Chief Complaint: Psychiatric Symptoms Stated Complaint: crisis Time Seen by Provider: 11/23/21 14:09 Source: patient Mode of arrival: ambulatory Limitations: no limitations History of Present Illness HPI Narrative: 35 years old female with history of PTSD, anorexia nervosa restrictive type, polysubstance abuse. Patient came in for evaluation of depression and anxiety, patient admitted to hurting herself by using cocaine and restricting herself from eating. Patient admitted to using cocaine by sniffing never IV, there is suicidal ideation with no plan. Related Data Home Medications Medication Instructions Recorded Confirmed loperamide 2 mg capsule 2 cap PO Q4H PRN 07/23/21 09/21/21 acetaminophen 325 mg tablet 650 mg PO Q6H PRN 08/02/21 09/21/21 zolpidem 5 mg tablet 5 mg PO BEDTIME 08/02/21 09/21/21 Previous Rx's Medication Instructions Recorded bethanechol chloride 25 mg tablet 25 mg PO TIDAC 30 Days #90 tab 08/11/21 clonidine HCl 0.1 mg tablet 0.1 mg PO TID PRN 30 Days #90 tab 08/11/21 diphenhydramine HCl 25 mg capsule 25 mg PO BEDTIME 30 Days #30 cap 08/11/21 (Wal-Sleep Z) duloxetine 30 mg capsule,delayed 90 mg PO DAILY 30 Days #90 cap 08/11/21 release fluoxetine 20 mg capsule 20 mg PO DAILY 30 Days #30 cap 08/11/21 gabapentin 400 mg capsule 400 mg PO DAILY PRN 30 Days #30 cap 08/11/21 gabapentin 800 mg tablet 800 mg PO BID 30 Days #60 tab 08/11/21 hydroxyzine HCl 25 mg tablet 25 mg PO BID PRN 30 Days #30 tab 08/11/21 metoclopramide HCl 5 mg tablet 5 mg PO TIDAC PRN 30 Days #90 tab 08/11/21 trazodone 100 mg tablet 100 mg PO BEDTIME 30 Days #30 tab 08/11/21 lurasidone 40 mg tablet (Latuda) 40 mg PO BEDTIME 30 Days #30 tab 10/01/21 benztropine 1 mg tablet 1 mg PO BID PRN 30 Days #30 tab 10/08/21 clonazepam 2 mg tablet (Klonopin) 2 mg PO BEDTIME 30 Days #30 tab 10/08/21 Allergies Allergy/AdvReac Type Severity Reaction Status Date / Time buspirone [From BuSpar] Allergy Swelling Verified 07/23/21 19:02 chlorpromazine Allergy Anaphylaxis Verified 07/23/21 19:02 [From Thorazine] lamotrigine [From Lamictal] Allergy Rash Verified 07/23/21 19:02 Sulfa (Sulfonamide Allergy Rash Verified 07/23/21 19:02 Antibiotics) linaclotide [From Linzess] AdvReac Abdominal Verified 07/23/21 19:02 Pain quetiapine [From Seroquel] AdvReac bad side Verified 07/23/21 19:02 effects' topiramate AdvReac Fogginess Verified 07/23/21 19:02 ziprasidone [From Geodon] AdvReac psychosis Verified 07/23/21 19:02 Review of Systems Review of Systems: All other systems are reviewed and are negative Constitutional: Reports as per HPI and Reports no additional constitutional complaints Eyes: Reports as per HPI and Reports no additional eye complaints Reports system reviewed and no additional complaints, except as documented Cardiovascular: Reports as per HPI and Reports no additional cardiovascular complaints Respiratory: Reports as per HPI and Reports no additional respiratory complaints Gastrointestinal: Reports as per HPI and Reports no additional gastrointestinal complaints Genitourinary: Reports no additional female genitourinary complaints Musculoskeletal: Reports no additional musculoskeletal complaints Skin/Breast: Reports system reviewed and no additional complaints, except as docu Psychiatric: Reports no additional psychiatric complaints Endocrine: Reports no additional endocrine complaints Hematologic/Lymphatic: Reports no additional hematologic/lymphatic complaints Allergic/Immunologic: Reports no additional allergic/immunologic complaints Reports system reviewed and no additional complaints, except as documented and Reports Abnormal speech present [facility] Past Medical History 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 Primary fibromyalgia syndrome Self-catheterizes urinary bladder Surgical History Hx of total colectomy Social History Social History Household Members: Significant Other Housing: House Do you presently have visiting nurse or other home services: No Alcohol intake: current Patient Tobacco Use Status: Former Tobacco user Tobacco use type: Cigarette Cigarettes Per Day: 1 Years Smoked: Started age 17 e-Cigarette/Vaping Use: Never Used Second Hand Smoke Exposure: No Substance Use Type: Crack/Cocaine service: No Current occupational status: unemployed Sexual orientation: Straight/Heterosexual Physical Exam Vital Signs: Vital Signs: Last Vital Signs Temp 97.9 F 11/23/21 13:04 Pulse 75 11/23/21 13:04 Resp 16 11/23/21 13:04 BP 115/73 11/23/21 13:04 Pulse Ox 97 11/23/21 13:04 BMI result Body Mass Index 16.9 Vital signs have been reviewed as appeared to be correct. Blood pressure normal. Heart rate normal. Respiration rate normal. Temperature normal. Oxygen saturation normal. Appearance: Alert. Oriented X3. No acute distress. Head: Normal external exam. Normocephalic. Atraumatic. No Cha signs noted. No raccoon eyes noted Eyes: PERRLA. EOMI. Conjunctiva and sclera normal. Eyelids normal. ENT: TM's Normal. Pharynx normal. Uvula midline. Moist mucous membranes. No trismus noted. No drooling noted. No muffled voice noted. Neck: Normal inspection. Neck supple. FROM. No adenopathy. Thyroid Normal. No meningeal signs. No neck mass noted. CVS: Normal heart rate and rhythm. Heart sound normal. No murmurs noted. Pulses normal throughout. Respiratory: No respiratory distress. Painless inspiration. Breath sounds normal. No wheezes/rales/rhonchi noted. Chest nontender. No accessory muscle usage noted or decreased air movement noted. Abdomen: Soft and nontender. Bowel sounds normal in all 4 quadrants. No distention noted. No organomegaly noted. No visible injury noted. Back: No CVA tenderness. Full range of motion noted. Skin: Skin warm and dry. Normal skin color. Normal skin turgor. No rashes/lesions/lacerations noted. Extremities: No lower extremity edema. Extremities exhibit normal range of motion. Extremities nontender. Neuro: Oriented X 3. Cranial nerve exam: II-XII are grossly intact No motor deficit. No sensory deficit. Reflexes normal. Patient Orientation: Person, Place, Time and Situation Level of Consciousness: Awake, Appropriate and Alert Patient Behavior: Appropriate, Guarded, Cooperative and Anxious Mood Description: Constricted, Blunted and Apprehensive Affect Description: Constricted, Blunted and Apprehensive Patient Cognition Impaired: No Ability to Follow Directions: Excellent Speech Pattern: Clear, Appropriate and Spontaneous Speech Memory Description: Intact, Immediate Intact and Short Term Intact Hallucinations: None Delusions: Not Present Thought Process: Intact Thought Content: positive for Intact, positive for Logical, denies Suicidal Ideation and denies Homicidal Ideation. Judgement: Good Judgement and Insight: Intact Course Course Course Narrative: Assessment and plan. 35-year-old female here for psych evaluation for depression and SI with no plan and seeking rehab from cocaine abuse. Elevated LFTs as per patient had recent workup and was found elevated in the past patient declined any use of Tylenol or using alcohol. Reevaluation(s) Reevaluation #1: Physician observation started at 14:15 . Patient placed in physician o bservation because the patient needed more time for medication to work and to see PT/case management for evaluation and the need for placement patient's vital sign were stable, patient is alert and oriented , neuro exam unchanged, unremarkable rest of physical exam. Time: 14:15 [facility] - Psych Medical Records Attestation: I reviewed the patient's medical records. Lab Data Attestation: I reviewed the patient's lab results. Result diagrams: 11/23/21 13:23 11/23/21 13:23 Labs: Lab Results 11/23/21 11/23/21 11/23/21 Range/Units 13:23 13:23 13:23 WBC 4.1 L (4.8-10.8) X10*3/uL RBC 4.17 L (4.20-5.50) X10*6/uL Hgb 12.2 (12.0-16.0) g/dl Hct 37.1 (37.0-47.0) % MCV 89.0 (80.0-98.0) fL MCH 29.3 (27.0-33.0) pg MCHC 32.9 (31.0-35.0) g/dl RDW 13.1 (11.0-16.0) % Plt Count 263 (160-400) X10*3/uL MPV 9.1 L (9.4-12.3) fL Immature Gran % (Auto) 0.2 (0.0-0.4) % Neut % (Auto) 45.5 (45-73) % Lymph % (Auto) 40.1 H (20-40) % Stokes % (Auto) 11.5 H (2-11) % Eos % (Auto) 2.0 (0-4) % Baso % (Auto) 0.7 (0-2) % Lymph # (Auto) 1.6 (1.2-4.9) X10*3/uL Stokes # (Auto) 0.5 (0.1-1.2) X10*3/uL Eos # (Auto) 0.1 (0.0-0.4) X10*3/uL Baso # (Auto) 0.0 (0.0-0.2) X10*3/uL Abs Immat Gran (auto) 0.01 (0.00-0.03) X10*3/uL Absolute Neuts (auto) 1.9 L (2.0-8.3) x10*3/uL Absolute Nucleated RBC 0.000 (0.0-0.012) X10*3/uL Nucleated RBC % (auto) 0.0 (0.0-0.2) /100WBC Sodium 137 (135-145) mmol/L Potassium 4.8 (3.3-5.1) mmol/L Chloride 102 (96-108) mmol/L Carbon Dioxide 26 (22-29) mmol/L Anion Gap 14 (12-20) BUN 7 L (9-16) mg/dL Creatinine 0.76 (0.5-1.4) mg/dL Estim Creat Clear Calc 73.2 Estimated GFR > 60 Random Glucose 93 (60-115) mg/dL Calcium 10.4 H (8.4-10.2) mg/dL Total Bilirubin 0.6 (0.0-1.0) mg/dL AST 36 H D (5-31) U/L ALT 50 H (0-31) U/L Alkaline Phosphatase 58 D (39-117) U/L Total Protein 7.0 (6.5-8.0) g/dL Albumin 3.9 (3.5-5.0) g/dL Ethyl Alcohol < 10 mg/dL Discharge Plan Discharge Clinical Impression: Anorexia nervosa, restricting type, PTSD (post-traumatic stress disorder), Cocaine use disorder Prescriptions: No Action loperamide 2 mg capsule 2 cap PO Q4H PRN (Reason: Diarrhea) 0RF trazodone 100 mg Tablet 100 mg PO BEDTIME 30 Days Qty: 30 0RF metoclopramide HCl 5 mg Tablet 5 mg PO TIDAC PRN (Reason: nausea and vomiting; motility) 30 Days Qty: 90 0RF clonidine HCl 0.1 mg Tablet 0.1 mg PO TID PRN (Reason: for daytime anxiety and bedtime hyperarousal) 30 Days Qty: 90 0RF gabapentin 400 mg Capsule 400 mg PO DAILY PRN (Reason: BREAKTHROUGH NEUROPATHIC PAIN) 30 Days Qty: 30 0RF bethanechol chloride 25 mg tablet 25 mg PO TIDAC 30 Days Qty: 90 0RF gabapentin 800 mg Tablet 800 mg PO BID 30 Days Qty: 60 0RF diphenhydramine HCl [Wal-Sleep Z] 25 mg Capsule 25 mg PO BEDTIME 30 Days Qty: 30 0RF fluoxetine 20 mg Capsule 20 mg PO DAILY 30 Days Qty: 30 0RF duloxetine 30 mg Capsule,Delayed Release(Dr/Ec) 90 mg PO DAILY 30 Days Qty: 90 0RF hydroxyzine HCl 25 mg Tablet 25 mg PO BID PRN (Reason: Anxiety) 30 Days Qty: 30 0RF zolpidem 5 mg Tablet 5 mg PO BEDTIME 0RF acetaminophen 325 mg Tablet 650 mg PO Q6H PRN (Reason: HEADACHE/MILD PAIN) 0RF Latuda 40 mg Tablet 40 mg PO BEDTIME 30 Days Qty: 30 1RF benztropine 1 mg Tablet 1 mg PO BID PRN (Reason: EPS/dystonia) 30 Days Qty: 30 0RF clonazepam [Klonopin] 2 mg tablet 2 mg PO BEDTIME 30 Days Qty: 30 0RF
[2021-11-23 14:38] LABS: Appearance Urine CLEAR; Color Urine YELLOW; Glucose Urine UA NEG (NEG); Leukocyte Esterase Urine NEG (NEG); Nitrite Urine NEG (NEG); PH 5.5 (5.0-8.0); Urine Blood NEG (NEG); Urine Ketones NEG (NEG); Urine Protein NEG (NEG-TRACE)
[2021-11-23 14:39] LABS: Urine Pregnancy NEGATIVE (NEGATIVE)
[2021-11-23 14:40] LABS: UPreg QC Valid YES
[2021-11-23 14:46] LABS: Amphetamine Screen Urine Not Detected (Not Detect); Barbiturates, Urine Not Detected (Not Detect); Benzodiazepines Screen Urine Not Detected (Not Detect); Cannabinoid Screen Urine Not Detected (Not Detect); Cocaine Screen Urine Not Detected (Not Detect); Fentanyl, urine POSITIVE (Not Detect); Opiate Screen Urine Not Detected (Not Detect); Phencyclidine Screen Urine Not Detected (Not Detect)
[2021-11-23 16:29] LABS: COVID-19 Test Negative (Negative); IDNOW Serial# 9DB6401D
[2021-11-23] MEDS: Loperamide HCl 2 MG CAPSULE PO (17:59)
[2021-11-23] MEDS: clonazePAM 1 MG TABLET 2 MG PO (22:00)
[2021-11-23] MEDS: Gabapentin 400 MG CAPSULE 800 MG PO (22:00)
[2021-11-23] MEDS: traZODone HCL 100 MG TABLET PO (22:01)
[2021-11-23] MEDS: Zolpidem Tartrate 5 MG TABLET PO (22:01)
[2021-11-23] MEDS: diphenhydrAMINE HCL 25 MG TABLET PO (22:01)
[2021-11-23] MEDS: Lurasidone HCl 40 MG TABLET PO (22:01)
[2021-11-23] MEDS: cloNIDine HCL 0.1 MG TABLET PO (22:03)
--- NOTE | 2021-11-23 22:06 | PHA.MEDREC ---
Addendum entered by Joanna Bhatt RPh 11/24/21 18:14: Nurse called, pt changing story. Put in bethanacol tid wm. Lan Original Note: Pharmacy Consult ? Medication Reconciliation PT TAKES BETHANACOL ONCE A DAY IN AM
[2021-11-23 22:07] VITALS: BP 103/64; PULSE 66; RESP 15; O2SAT 99
[2021-11-24 06:34] VITALS: BP 89/55; PULSE 57; RESP 16; TEMP 36.6; O2SAT 97
--- NOTE | 2021-11-24 06:51 | PC.NURSE ---
Patient slept through the night, no distress observed/reported, medication compliant, disposition per care team is section 12 inpatient bed search, behavior appropriate and non concerning, patient has ileostomy and able to self care, will continue to monitor.
[2021-11-24 08:14] VITALS: BP 95/56; PULSE 53; RESP 19; O2SAT 98
[2021-11-24] MEDS: FLUoxetine HCl 20 MG CAPSULE PO (08:53)
[2021-11-24] MEDS: Gabapentin 400 MG CAPSULE 800 MG PO ×2 (08:53→21:07)
[2021-11-24] MEDS: Bethanechol Chloride 25 MG TABLET PO (08:53)
[2021-11-24] MEDS: DULoxetine HCl 30 MG CAPSULE.DR 90 MG PO (08:53)
--- NOTE | 2021-11-24 10:38 | MHC.CARE ---
Call from [facility] through patient's insurance co., they have reached out to patient to begin the referral process and hope to connect with her while inpatient or after discharge to complete the paperwork. Patient is awared and did notify that she is in the ED at this time. Stephanie Galdamez NP [phone]
--- NOTE | 2021-11-24 13:15 | PC.NURSE ---
Pt seen on this date for individual OT session. Pt appeared alert, Ox4, anxious and restless. Pt educated on coping strategies to manage anxiety. Pt stated I know all the strategies, I just don't ever use them . Pt educated on self awareness and other motivators to avoid relapse. Therapeutic use of self used to explore strategies to use in the future.
[2021-11-24] MEDS: traZODone HCL 100 MG TABLET PO (21:07)
[2021-11-24] MEDS: clonazePAM 1 MG TABLET 2 MG PO (21:07)
[2021-11-24] MEDS: Zolpidem Tartrate 5 MG TABLET PO (21:07)
[2021-11-24] MEDS: cloNIDine HCL 0.1 MG TABLET PO (21:07)
[2021-11-24] MEDS: diphenhydrAMINE HCL 25 MG TABLET PO (21:07)
[2021-11-24 21:09] VITALS: BP 103/65; PULSE 79
[2021-11-24] MEDS: Lurasidone HCl 40 MG TABLET PO (21:25)
--- NOTE | 2021-11-25 05:40 | PC.NURSE ---
Patient slept through the night, no distress observed/reported, medication compliant, disposition per care team is section 12 inpatient bed search, no update on bed search, behavior appropriate and non concerning, patient has ileostomy and able to self care, will continue to monitor.
[2021-11-25 06:14] VITALS: BP 94/52; PULSE 77; RESP 16; TEMP 36.3; O2SAT 97
--- NOTE | 2021-11-25 07:07 | PC.NURSE ---
patient appears to remain asleep at present respirations are even and unlabored patient appears in no distress
[2021-11-25] MEDS: FLUoxetine HCl 20 MG CAPSULE PO (09:23)
[2021-11-25] MEDS: DULoxetine HCl 30 MG CAPSULE.DR 90 MG PO (09:24)
[2021-11-25] MEDS: Gabapentin 400 MG CAPSULE 800 MG PO ×2 (09:24→20:59)
[2021-11-25] MEDS: Bethanechol Chloride 25 MG TABLET PO ×2 (13:46→17:20)
--- NOTE | 2021-11-25 14:06 | P.CNPS_ITS ---
History of Present Illness Date of Service: 11/25/21 Chief Complaint: crisis Sources of Information: patient interviewed, chart reviewed and crisis/core team assessment reviewed HPI Narrative: Zuleyma is a 35 y.o. Female who carries a dx of PTSD, anorexia nervosa, poly substance abuse, and MDD, recurrent episode. She presented to [facility] ED on 09/21/21 reporting passive SI, using crack cocaine in an attempt to lose weight. Pt has multiple co-morbid medical concerns including ostomy bag, urinary retention, and chronic pain. Has long hx of IPLOC, PHP, and detox. Has OP psych services, psychiatrist was Dr. Anand. Patient reports that she relapsed about 3 days after her last discharge. She said that IOP was helpful and she started getting open there and was able to get sober with the help of her boyfriend. She reports she has been sober for the past week prior to this admission however she has been restricting her food significantly and cannot seem to get herself to eat again. She reports depression and intermittent SI though she does not have a plan or intent. Patient says she does fully wants help. She does not feel she can get herself towards healthier eating without structure of inpatient setting. Pile Driving Technician and patient discussed how her substance abuse seems to be the main thing that derails her progress, even more than her eating disorder and that as long as she continues to both minimize and hide her abuse from her significant other and outpatient providers and fail to fully engage in substance abuse treatment, this pattern will remain. Patient agrees. Patient said that she was told by her outpatient provider that because her liver enzymes were elevated she would have to change her medications. Patient says that they were elevated at last ED visit, possibly from Tylenol use, though she denies any suicide attempt. Pile Driving Technician reviewed current labs and LFTs are very mildly elevated and if they remain stable there does not seem to be indication to change her medications which she finds very helpful and with which she wants to continue. Past Psychiatric History: -Per chart, hx of suicide attempts at age 10 and 22. -Hx of intentionally ODing on heroin on 07/22/20 as a suicide attempt and was administered narcan at [facility]. -Per chart, hx of IPLOC 32x in the [facility] for her eating disorder. Hx of PHP 2x in 2020 at [facility] (October and April). Hx of admission to [facility]. -Hx of OP therapy since age 12, psychiatrist is Dr. James -Hx of disordered eating/ anorexia since age 16. -Hx of TMS in 2020 at [facility], denied benefit [employer] continuous [employer]. -Past med trials: Pt reports she was on prozac simultaneously with cymbalta. She denies benefit on prozac. Says she is ?very opposed? to seroquel. Wellbutrin. Lamictal (rash). Remeron. 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 Social History: -Lives with her bf, who she says is supportive. 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 Substance History: Severe cocaine use disorder; history of opiate use disorder Trauma History: -Per chart, describes past several years with organ failure related to anorexia, experiences from substance use, as traumatic. Diagnostics Vital Signs (24Hr): Vital Signs - 24 hr 11/24/21 21:09 11/25/21 06:14 Temperature 97.4 F Pulse Rate 79 77 Respiratory Rate 16 Blood Pressure 103/65 94/52 L Pulse Oximetry 97 BMI result Body Mass Index 16.9 Labs Results: 11/23/21 13:23 11/23/21 13:23 Labs: Laboratory Results - last 48 hr 11/23/21 11/23/21 11/23/21 13:23 13:23 13:23 Urine Color YELLOW Urine Appearance CLEAR Urine pH 5.5 Ur Specific [place] 1.010 Urine Protein NEG Urine Glucose (UA) NEG Urine Ketones NEG Urine Blood NEG Urine Nitrite NEG Ur Leukocyte Esterase NEG Urine Test NEGATIVE Urine Opiates Screen Not Detected Urine Fentanyl Screen POSITIVE H Ur Barbiturates Screen Not Detected Ur Phencyclidine Scrn Not Detected Ur Amphetamines Screen Not Detected U Benzodiazepines Scrn Not Detected Urine Cocaine Screen Not Detected U Marijuana (THC) Screen Not Detected COVID-19 ([facility]) COVID-19 Clin Com 11/23/21 16:03 Urine Color Urine Appearance Urine pH Ur Specific [place] Urine Protein Urine Glucose (UA) Urine Ketones Urine Blood Urine Nitrite Ur Leukocyte Esterase Urine Test Urine Opiates Screen Urine Fentanyl Screen Ur Barbiturates Screen Ur Phencyclidine Scrn Ur Amphetamines Screen U Benzodiazepines Scrn Urine Cocaine Screen U Marijuana (THC) Screen COVID-19 ([facility]ESHA) Negative COVID-19 Clin Com See Note Mental Status Exam Mental Status Exam Narrative: Pt is alert and oriented; behavior is cooperative; anorexic; dressed in hospital attire with unkempt hair but adequate hygiene; mood is described as depressed and affect congruent, downcast, tearful; eye contact appropriate; Speech is normal rate, volume and prosody and not pressured; no psychomotor agitation/retardation present; thought process is organized and goal directed; Thought content is on feeling trapped by addiction and eating disorder; otherwise pertinent to relevant topics and without any delusional content, pa ranoid ideations or grandiosity; intermittent passive SI; no HI. There is no evidence of perceptual disturbance. Patients insight and judgment are impaired Medications Medications Current Medications Acetaminophen (Acetaminophen 325 Mg Tablet) 650 mg PO Q6H PRN PRN Reason: HEADACHE/MILD PAIN Benztropine Mesylate (Benztropine Mesylate 1 Mg Tablet) 1 mg PO BID PRN PRN Reason: EPS/dystonia Bethanechol Chloride (Bethanechol Chloride 25 Mg Tablet) 25 mg PO TIDAC [facility] Last Admin: 11/25/21 13:46 Dose: 25 mg Documented by: Clonazepam (Clonazepam 1 Mg Tablet) 2 mg PO BEDTIME [facility] Last Admin: 11/24/21 21:07 Dose: 2 mg Documented by: Clonidine HCl (Clonidine Hcl 0.1 Mg Tablet) 0.1 mg PO TID PRN; Protocol PRN Reason: for daytime anxiety and bedtime hyperarousal Last Admin: 11/24/21 21:07 Dose: 0.1 mg Documented by: Diphenhydramine HCl (Diphenhydramine Hcl 25 Mg Tablet) 25 mg PO BEDTIME [facility] Last Admin: 11/24/21 21:07 Dose: 25 mg Documented by: Duloxetine HCl (Duloxetine Hcl 30 Mg Capsule.) 90 mg PO DAILY [facility] Last Admin: 11/25/21 09:24 Dose: 90 mg Documented by: Fluoxetine HCl (Fluoxetine Hcl 20 Mg Capsule) 20 mg PO DAILY [facility] Last Admin: 11/25/21 09:23 Dose: 20 mg Documented by: Gabapentin (Gabapentin 400 Mg Capsule) 400 mg PO DAILY PRN PRN Reason: BREAKTHROUGH NEUROPATHIC PAIN Gabapentin (Gabapentin 400 Mg Capsule) 800 mg PO BID [facility] Last Admin: 11/25/21 09:24 Dose: 800 mg Documented by: Hydroxyzine HCl (Hydroxyzine Hcl 25 Mg Tablet) 25 mg PO BID PRN PRN Reason: Anxiety Loperamide HCl (Loperamide Hcl 2 Mg Capsule) 4 mg PO Q4H PRN PRN Reason: Diarrhea Lurasidone HCl (Lurasidone Hcl 40 Mg Tablet) 40 mg PO BEDTIME [facility] Last Admin: 11/24/21 21:25 Dose: 40 mg Documented by: Metoclopramide HCl (Metoclopramide Hcl 5 Mg Tablet) 5 mg PO TIDAC PRN PRN Reason: nausea and vomiting; motility Trazodone HCl (Trazodone Hcl 100 Mg Tablet) 100 mg PO BEDTIME [facility] Last Admin: 11/24/21 21:07 Dose: 100 mg Documented by: Zolpidem Tartrate (Zolpidem Tartrate 5 Mg Tablet) 5 mg PO BEDTIME [facility] Last Admin: 11/24/21 21:07 Dose: 5 mg Documented by: Allergies Allergies Allergy/AdvReac Type Severity Reaction Status Date / Time buspirone [From BuSpar] Allergy Swelling Verified 07/23/21 19:02 chlorpromazine Allergy Anaphylaxis Verified 07/23/21 19:02 [From Thorazine] lamotrigine [From Lamictal] Allergy Rash Verified 07/23/21 19:02 Sulfa (Sulfonamide Allergy Rash Verified 07/23/21 19:02 Antibiotics) linaclotide [From Linzess] AdvReac Abdominal Verified 07/23/21 19:02 Pain quetiapine [From Seroquel] AdvReac bad side Verified 07/23/21 19:02 effects' topiramate AdvReac Fogginess Verified 07/23/21 19:02 ziprasidone [From Geodon] AdvReac psychosis Verified 07/23/21 19:02 Assessment & Plan Assessment & Plan (1) Major depressive disorder, recurrent, moderate: Status: Acute Code(s): F33.1 - Major depressive disorder, recurrent, moderate (2) PTSD (post-traumatic stress disorder): Status: Acute Code(s): F43.10 - Post-traumatic stress disorder, unspecified (3) Anorexia nervosa, restricting type: Status: Acute Code(s): F50.01 - Anorexia nervosa, restricting type (4) Cocaine use disorder: Status: Acute Code(s): F14.10 - Cocaine abuse, uncomplicated (5) Ileostomy present: Status: Acute Code(s): Z93.2 - Ileostomy status Plan Zuleyma is a 35 y.o. Female who carries a dx of PTSD, anorexia nervosa, polysubstance abuse, and MDD, recurrent episode. She presented to [facility] ED on 09/21/21 reporting passive SI, using crack cocaine in an attempt to lose weight. Pt has multiple co-morbid medical concerns including ostomy bag, urinary reten tion, and chronic pain. Has long hx of IPLOC, PHP, and detox. Has OP psych services, psychiatrist was Dr. Anand. Patient reports that she relapsed about 3 days after her last discharge. She said that IOP was helpful and she started getting open there and was able to get sober with the help of her boyfriend. She reports she has been sober for the past week prior to this admission however she has been restricting her food significantly and cannot seem to get herself to eat again. She reports depression and intermittent SI though she does not have a plan or intent. Patient says she does fully wants help. She does not feel she can get herself towards healthier eating without structure of inpatient setting. Pile Driving Technician and patient discussed how her substance abuse seems to be the main thing that derails her progress, even more than her eating disorder and that as long as she continues to both minimize and hide her abuse from her significant other and outpatient providers and fail to fully engage in substance abuse treatment, this pattern will remain. Patient agrees. IMPRESSION: It is expert medical writer's opinion that patient requires the structure of inpatient admission in order to stabilize Currently continue home medications as LFTs are only mildly elevated I spent minutes with the patient and/or on the patient floor today, greater than?50% of which was spent counseling/coordinating care. Patient educated on: diagnosis, medication risk/benefits, substance abuse and therapeutic strategies Informed Consent: understands
[2021-11-25] MEDS: diphenhydrAMINE HCL 25 MG TABLET PO (20:59)
[2021-11-25] MEDS: cloNIDine HCL 0.1 MG TABLET PO (20:59)
[2021-11-25] MEDS: Zolpidem Tartrate 5 MG TABLET PO (20:59)
[2021-11-25] MEDS: traZODone HCL 100 MG TABLET PO (20:59)
[2021-11-25] MEDS: clonazePAM 1 MG TABLET 2 MG PO (20:59)
[2021-11-25] MEDS: Lurasidone HCl 40 MG TABLET PO (21:00)
[2021-11-25 21:01] VITALS: BP 102/64; PULSE 70; RESP 18; TEMP 36.9; O2SAT 100
--- NOTE | 2021-11-26 05:53 | PC.NURSE ---
Patient slept through the night, no distress observed/reported, medication compliant, disposition per care team is section 12 inpatient bed search, no update on bed search, behavior appropriate and non concerning at time patient was tearful, patient has ileostomy and able to self care, will continue to monitor
[2021-11-26 05:55] VITALS: BP 102/64; PULSE 74; RESP 16; TEMP 36.5; O2SAT 99
--- NOTE | 2021-11-26 07:13 | PC.NURSE ---
patient appears to remain asleep at present respiraqtions are even and unlabored patient appears in no distress
[2021-11-26 07:38] VITALS: BP 98/49; PULSE 50; RESP 13; O2SAT 98
[2021-11-26] MEDS: Gabapentin 400 MG CAPSULE 800 MG PO ×2 (08:47→21:54)
[2021-11-26] MEDS: Bethanechol Chloride 25 MG TABLET PO ×3 (08:47→16:43)
[2021-11-26] MEDS: DULoxetine HCl 30 MG CAPSULE.DR 90 MG PO (08:48)
[2021-11-26] MEDS: FLUoxetine HCl 20 MG CAPSULE PO (08:48)
[2021-11-26 16:25] LABS: COVID-19 Test Negative (Negative)
[2021-11-26 18:00] VITALS: BP 104/64; PULSE 89; TEMP 36.4; O2SAT 98
--- NOTE | 2021-11-26 18:25 | P.HPPS_ITS ---
HPI Date of Service: 11/26/21 Chief Complaint: depression,SI Sources of Information: patient interviewed, chart reviewed and crisis/core team assessment reviewed HPI Subjective Notes: Salazar Warning and Conditional Voluntary Healthcare Proxy: No Guardianship: No Medical Problems Affecting Mental Status: No Narrative: Zuleyma is a 35 y.o. Female who carries a dx of PTSD, likely BPD, anorexia nervosa, polysubstance abuse, and MDD, recurrent episode. Pt has co-morbid medical issues of ileostomy (paralytic ileus), chronic pain, excessive fragmentary myoclonus, and urinary retention and she arrived at the ED with her own medical material to self cath (straight catheter). She presented to [facility] ED on 11/23/21 due to SI, increased depression, anxiety, substance use, and restricting behavior. Utox positive for fentanyl. Pt uses cocaine and heroin via insufflation with purpose of losing weight. Recent admission to in 09/2021 for similar presentation. Per psych consult on 11/25/21: Patient said that she was told by her outpatient provider that because her liver enzymes were elevated she would have to change her medications.? Patient says that they were elevated at last ED visit, possibly from Tylenol use, though she denies any suicide attempt.? Director Financial Services reviewed current labs and LFTs are very mildly elevated and if they remain stable there does not seem to be indication to change her medications which she finds very helpful and with which she wants to continue. I evaluated the pt this evening and upon interview she reports ?I know I need help with substance abuse? and says ?restricting is so big as well.? Pt says ?I feel comfortable here eating.? Pt was recently discharged from [facility] at [facility] and stepped down to their IOP. Says the PHP was ?terrible,? but that the ?substance abuse piece was good? at IOP. Pt then says ?I did bad,? i.e. relapsed on heroin and cocaine, ?I just couldnt stop bad behavior,? pt would go on drug binges and restrict food intake. Precipitating factor includes that her family participated in family therapy, however she says this was more triggering and not helpful, as her ?mom had a lot of anger built up,? told pt that she had mentally prepared to lose her to drugs and anorexia. Pt also recently lost her license, as she was pulled over and PD felt she was ?not acting right.? Reports last tuesday ?I overdosed on opiate, which I had just started taking,? she fell face first into a bundle of wires, didnt wake up, was eventually discovered and given narcan, hospitalized at [facility]. Pt now feels ?my body cant take anymore.? She has been sober since this incident, ?Im so tired of it, i?m tired of the drugs,? tearful. She reports med non-adherence prior to admission, meds were re-started in the ED BH pod.? Past Psychiatric History: -Per chart, hx of suicide attempts at age 10 and 22. -Hx of intentionally ODing on heroin on 07/22/20 as a suicide attempt and was administered narcan at [facility]. -Per chart, hx of IPLOC 32x in the [facility] for her eating disorder. Hx of PHP 2x in 2020 at [facility] (October and April). Hx of admission to [facility]. Hx of multiple admissions at [facility] in 2021. -Hx of OP therapy since age 12, psychiatrist is Dr. James -Hx of disordered eating/ anorexia since age 16. 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 -Past med trials: Pt reports she was on prozac simultaneously with cymbalta. She denies benefit on prozac. Says she is ?very opposed? to seroquel. Wellbutrin. Lamictal (rash). Remeron. 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 Social History: -Lives with her bf, who she says is supportive. 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 Substance History: -Recent relapse on cocaine and heroin via insufflation, utox positive for fentanyl Trauma History: -Per chart, describes past several years with organ failure related to anorexia, experiences from substance use, as traumatic. Diagnostics Vital Signs (24Hr): Vital Signs - 24 hr 11/25/21 21:01 11/26/21 05:55 11/26/21 07:38 Temperature 98.5 F 97.7 F Pulse Rate 70 74 50 Respiratory Rate 18 16 13 Blood Pressure 102/64 102/64 98/49 L Pulse Oximetry 100 99 98 BMI result Body Mass Index 16.9 Labs Results: 11/23/21 13:23 11/23/21 13:23 Labs: Laboratory Results - last 48 hr 11/26/21 16:05 COVID-19 ([facility]) Negative COVID-19 Clin Com See Note Meds/Allergies Meds Home Medications Medication Instructions Recorded Confirmed Type loperamide 2 mg capsule 2 cap PO Q4H PRN 07/23/21 11/23/21 History acetaminophen 325 mg tablet 650 mg PO Q6H PRN 08/02/21 11/23/21 History zolpidem 5 mg tablet 5 mg PO BEDTIME 08/02/21 11/23/21 History bethanechol chloride 25 mg tablet 1 tab PO TIDWM 11/23/21 11/24/21 History Allergies Allergies Allergy/AdvReac Type Severity Reaction Status Date / Time buspirone [From BuSpar] Allergy Swelling Verified 07/23/21 19:02 chlorpromazine Allergy Anaphylaxis Verified 07/23/21 19:02 [From Thorazine] lamotrigine [From Lamictal] Allergy Rash Verified 07/23/21 19:02 Sulfa (Sulfonamide Allergy Rash Verified 07/23/21 19:02 Antibiotics) linaclotide [From Linzess] AdvReac Abdominal Verified 07/23/21 19:02 Pain quetiapine [From Seroquel] AdvReac bad side Verified 07/23/21 19:02 effects' topiramate AdvReac Fogginess Verified 07/23/21 19:02 ziprasidone [From Geodon] AdvReac psychosis Verified 07/23/21 19:02 Mental Status Exam Mental Status Exam Narrative: A&O. Pt is frail appearing, lying down in bed, in hospital attire. Good eye contact, attentive. No Tics or Tremors. No abnormal involuntary movements. Calm, cooperative, engaged. Non-pressured speech, spontaneous with regular rate and rhythm, normal volume and prosody. No prolonged speech latency or dysarthria. Mood is ?depressed,? affect is constricted, tearful at times. Denies SI/SIB/HI upon inquiry. Denies A/VH or delusional thought content. Thoughts are coherent, organized. No known cognitive or memory impairment. Insight/ Judgment is poor due to chronic self harm behaviors and substance use. Assessment & Plan Assessment & Plan (1) Cocaine use disorder: Status: Acute Code(s): F14.10 - Cocaine abuse, uncomplicated (2) Major depressive disorder, recurrent, moderate: Status: Acute Code(s): F33.1 - Major depressive disorder, recurrent, moderate (3) Anorexia nervosa, restricting type: Status: Acute Code(s): F50.01 - Anorexia nervosa, restricting type (4) PTSD (post-traumatic stress disorder): Status: Acute Code(s): F43.10 - Post-traumatic stress disorder, unspecified Plan Zuleyma is a 35 y.o. Female who carries a dx of PTSD, likely BPD, anorexia nervosa, polysubstance abuse, and MDD, recurrent episode. She presented to [facility] ED on 09/21/21 reporting passive SI, using crack cocaine in an attempt to lose weight. Pt has multiple co-morbid medical concerns including ostomy bag, urinary retention, and chronic pain. Has long hx of IPLOC, PHP, and detox. Has OP psych services, psychiatrist is Dr. Anand. Plan: Will defer to primary treating provider for med adjustments, pt interested in increasing latuda.? CV, Q15 min safety checks Monitor response to medications. Monitor for safety in the milieu. Discharge on stabilization. Patient seen. Chart reviewed. Discussed with team. Obtain collateral contact info as needed Patient educated on: medication risk/benefits and therapeutic strategies Reason for continued inpatient stay Substantial Risk for: harm to self and med/psych decompensation
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
[2021-11-26] MEDS: clonazePAM 1 MG TABLET 2 MG PO (21:53)
[2021-11-26] MEDS: traZODone HCL 100 MG TABLET PO (21:54)
[2021-11-26] MEDS: Lurasidone HCl 40 MG TABLET PO (21:54)
[2021-11-26] MEDS: Zolpidem Tartrate 5 MG TABLET PO (21:54)
[2021-11-26] MEDS: diphenhydrAMINE HCL 25 MG TABLET PO (21:55)
--- NOTE | 2021-11-26 22:05 | PC.NURSE ---
Pt's BP taken twice; 104/68, HR 89 then 103/67,HR 89. Scheduled Prazosin 2mg withheld at HS on recommendation of Lyndsey Branham
[2021-11-27 06:00] VITALS: BP 90/50; PULSE 61; RESP 14; TEMP 36.6; O2SAT 97
[2021-11-27] MEDS: FLUoxetine HCl 20 MG CAPSULE PO (08:14)
[2021-11-27] MEDS: Bethanechol Chloride 25 MG TABLET PO ×3 (08:14→16:37)
[2021-11-27] MEDS: DULoxetine HCl 30 MG CAPSULE.DR 90 MG PO (08:14)
[2021-11-27] MEDS: Gabapentin 400 MG CAPSULE 800 MG PO ×2 (08:14→21:55)
[2021-11-27 09:19] LABS: Estimated Average Glucose 105 mg/dL; Hemoglobin A1c % 5.3 %
[2021-11-27 09:42] LABS: Cholesterol 189 mg/dL; HDL Cholesterol 60 mg/dL; LDL Cholesterol Calculated 103 mg/dl; Magnesium 1.9 mg/dL (1.6-2.6); Triglycerides 133 mg/dL
[2021-11-27 10:05] LABS: Thyroid Stimulating Hormone 0.58 uIU/mL (0.32-4.0)
[2021-11-27 10:25] LABS: Folate 10.1 ng/mL (> or = 4.0); Vitamin B12 1517 pg/mL (200-900)
--- NOTE | 2021-11-27 10:38 | P.PNPSI_ITS ---
Subjective Subjective Date of Service: 11/27/21 Reason For Visit: depression,SI Interim History: Patient tearful, depressed. Patient talked about struggles with substance abuse and how it keeps her from attending to other issues such as her eating disorder. Patient says she has now become open with her partner and knows that her openness is essential to getting and staying stable and sober. Mental Status Exam Mental Status Exam Narrative: A&O. Pt is frail appearing, in hospital attire. Good eye contact, attentive. No Tics or Tremors. No abnormal involuntary movements. Calm, cooperative, engaged. Non-pressured speech, spontaneous with regular rate and rhythm, normal volume and prosody. No prolonged speech latency or dysarthria. Mood is ?depressed,? affect is constricted, tearful at times. Denies SI/SIB/HI upon inquiry. Denies A/VH or delusional thought content. Thoughts are coherent, organized. No known cognitive or memory impairment. Insight/ Judgment is poor due to chronic self harm behaviors and substance use. Diagnostics Vital Signs (24Hr): Vital Signs - 24 hr 11/26/21 18:00 11/27/21 06:00 Temperature 97.5 F 97.8 F Pulse Rate 89 61 Respiratory Rate 14 Blood Pressure 104/64 90/50 L Pulse Oximetry 98 97 BMI result Body Mass Index 16.9 Labs Results: 11/23/21 13:23 11/23/21 13:23 Labs: Laboratory Results - last 48 hr 11/26/21 11/27/21 11/27/21 16:05 08:21 08:21 Estimat Average Glucose 105 Hemoglobin A1c % 5.3 Magnesium 1.9 Triglycerides 133 Cholesterol 189 LDL Cholesterol, Calc 103 HDL Cholesterol 60 Vitamin B12 Folate TSH 0.58 Free T4 0.90 COVID-19 ([facility]) Negative COVID-19 Clin Com See Note 11/27/21 08:21 Estimat Average Glucose Hemoglobin A1c % Magnesium Triglycerides Cholesterol LDL Cholesterol, Calc HDL Cholesterol Vitamin B12 1517 H Folate 10.1 TSH Free T4 COVID-19 ([facility]) COVID-19 Clin Com Medications Medications Current Medications Acetaminophen (Acetaminophen 325 Mg Tablet) 650 mg PO Q6H PRN PRN Reason: HEADACHE/MILD PAIN Al Hydroxide/Mg Hydroxide (Magnesium Hydrox/Alum Hydrox 30 Ml Oral.Susp) 30 ml PO Q6H PRN PRN Reason: Heartburn/Nausea Benztropine Mesylate (Benztropine Mesylate 1 Mg Tablet) 1 mg PO BID PRN PRN Reason: EPS/dystonia Bethanechol Chloride (Bethanechol Chloride 25 Mg Tablet) 25 mg PO TIDAC [facility] Last Admin: 11/27/21 08:14 Dose: 25 mg Documented by: Clonazepam (Clonazepam 1 Mg Tablet) 2 mg PO BEDTIME [facility] Last Admin: 11/26/21 21:53 Dose: 2 mg Documented by: Clonidine HCl (Clonidine Hcl 0.1 Mg Tablet) 0.1 mg PO TID PRN; Protocol PRN Reason: for daytime anxiety and bedtime hyperarousal Last Admin: 11/25/21 20:59 Dose: 0.1 mg Documented by: Diphenhydramine HCl (Diphenhydramine Hcl 25 Mg Tablet) 25 mg PO BEDTIME [facility] Last Admin: 11/26/21 21:55 Dose: 25 mg Documented by: Duloxetine HCl (Duloxetine Hcl 30 Mg Capsule.Dr) 90 mg PO DAILY [facility] Last Admin: 11/27/21 08:14 Dose: 90 mg Documented by: Fluoxetine HCl (Fluoxetine Hcl 20 Mg Capsule) 20 mg PO DAILY [facility] Last Admin: 11/27/21 08:14 Dose: 20 mg Documented by: Gabapentin (Gabapentin 400 Mg Capsule) 400 mg PO DAILY PRN PRN Reason: BREAKTHROUGH NEUROPATHIC PAIN Gabapentin (Gabapentin 400 Mg Capsule) 800 mg PO BID [facility] Last Admin: 11/27/21 08:14 Dose: 800 mg Documented by: Hydroxyzine HCl (Hydroxyzine Hcl 25 Mg Tablet) 25 mg PO Q6H PRN PRN Reason: Anxiety Loperamide HCl (Loperamide Hcl 2 Mg Capsule) 4 mg PO Q4H PRN PRN Reason: Diarrhea Lurasidone HCl (Lurasidone Hcl 40 Mg Tablet) 40 mg PO BEDTIME [facility] Last Admin: 11/26/21 21:54 Dose: 40 mg Documented by: Magnesium Hydroxide (Milk Of Magnesia 30 Ml Oral.Susp) 30 ml PO DAILY PRN PRN Reason: Constipation Metoclopramide HCl (Metoclopramide Hcl 5 Mg Tablet) 5 mg PO TIDAC PRN PRN Reason: nausea and vomiting; motility Prazosin HCl (Prazosin Hcl 1 Mg Capsule) 2 mg PO BEDTIME [facility]; Protocol Last Admin: 11/27/21 02:12 Dose: Not Given Documented by: Trazodone HCl (Trazodone Hcl 100 Mg Tablet) 100 mg PO BEDTIME [facility] Last Admin: 11/26/21 21:54 Dose: 100 mg Documented by: Zolpidem Tartrate (Zolpidem Tartrate 5 Mg Tablet) 5 mg PO BEDTIME [facility] Last Admin: 11/26/21 21:54 Dose: 5 mg Documented by: Allergies Allergies Allergy/AdvReac Type Severity Reaction Status Date / Time buspirone [From BuSpar] Allergy Swelling Verified 07/23/21 19:02 chlorpromazine Allergy Anaphylaxis Verified 07/23/21 19:02 [From Thorazine] lamotrigine [From Lamictal] Allergy Rash Verified 07/23/21 19:02 Sulfa (Sulfonamide Allergy Rash Verified 07/23/21 19:02 Antibiotics) linaclotide [From Linzess] AdvReac Abdominal Verified 07/23/21 19:02 Pain quetiapine [From Seroquel] AdvReac bad side Verified 07/23/21 19:02 effects' topiramate AdvReac Fogginess Verified 07/23/21 19:02 ziprasidone [From Geodon] AdvReac psychosis Verified 07/23/21 19:02 Assessment & Plan Assessment & Plan (1) Major depressive disorder, recurrent, moderate: Status: Acute Code(s): F33.1 - Major depressive disorder, recurrent, moderate (2) PTSD (post-traumatic stress disorder): Status: Acute Code(s): F43.10 - Post-traumatic stress disorder, unspecified (3) Anorexia nervosa, restricting type: Status: Acute Code(s): F50.01 - Anorexia nervosa, restricting type (4) Cocaine use disorder: Status: Acute Code(s): F14.10 - Cocaine abuse, uncomplicated (5) Ileostomy present: Status: Acute Code(s): Z93.2 - Ileostomy status Plan Zuleyma is a 35 y.o. Female who carries a dx of PTSD, anorexia nervosa, polysubstance abuse, and MDD, recurrent episode. She presented to [facility] ED on 09/21/21 reporting passive SI, using crack cocaine in an attempt to lose weight. Pt has multiple co-morbid medical concerns including ostomy bag, urinary retention, and chronic pain. Has long hx of IPLOC, PHP, and detox. Has OP psych services, psychiatrist was Dr. Anand. Patient reports that she relapsed about 3 days after her last discharge. She said that IOP was helpful and she started getting open there and was able to get sober with the help of her boyfriend. She reports she has been sober for the past week prior to this admission however she has been restricting her food significantly and cannot seem to get herself to eat again. She reports depression and intermittent SI though she does not have a plan or intent. Patient says she does fully wants help. She does not feel she can get herself towards healthier eating without structure of inpatient setting. 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 Patient agrees. IMPRESSION: It is investment underwriter's opinion that patient requires the structure of inpatient admission in order to stabilize Currently continue home medications as LFTs are only mildly elevated I spent minutes with the patient and/or on the patient floor today, greater than?50% of which was spent counseling/coordinating care. Patient educated on: medication risk/benefits, substance abuse and therapeutic strategies Informed Consent: understands Reason for contiued inpatient stay Substantial Risk for: rapid decompensation
[2021-11-27] MEDS: Acetaminophen 325 MG TABLET 650 MG PO (16:48)
[2021-11-27 18:00] VITALS: BP 100/88; PULSE 89; RESP 16; TEMP 37.1; O2SAT 99
[2021-11-27] MEDS: diphenhydrAMINE HCL 25 MG TABLET PO (21:55)
[2021-11-27] MEDS: clonazePAM 1 MG TABLET 2 MG PO (21:55)
[2021-11-27] MEDS: traZODone HCL 100 MG TABLET PO (21:56)
[2021-11-27] MEDS: Zolpidem Tartrate 5 MG TABLET PO (21:56)
[2021-11-27] MEDS: Prazosin HCL 1 MG CAPSULE 2 MG PO (21:56)
[2021-11-27] MEDS: Lurasidone HCl 40 MG TABLET PO (21:56)
[2021-11-28 06:00] VITALS: BP 102/64; PULSE 68; RESP 16; TEMP 36.6; O2SAT 99
[2021-11-28] MEDS: DULoxetine HCl 30 MG CAPSULE.DR 90 MG PO (08:39)
[2021-11-28] MEDS: Bethanechol Chloride 25 MG TABLET PO ×2 (08:39→12:16)
[2021-11-28] MEDS: FLUoxetine HCl 20 MG CAPSULE PO (08:39)
[2021-11-28] MEDS: Gabapentin 400 MG CAPSULE 800 MG PO ×2 (08:39→22:59)
--- NOTE | 2021-11-28 16:22 | HO.PSYCHPN ---
Subjective Subjective Date of Service: 11/28/21 Reason For Visit: depression,SI Interim History: Patient reports she is doing OK today. She reports she felt tired and dizzy after starting Prazosin and unsure if she wants to continue. She decides to take it over the weekend. She was encouraged to stay hydrated. No objective findings of low BP, bradycardia. VSS. 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 Pt is frail appearing. Casual dress. Good eye contact, attentive. No Tics or Tremors. No abnormal involuntary movements. Calm, cooperative, engaged. Non-pressured speech, spontaneous with regular rate and rhythm, normal volume and prosody. No prolonged speech latency or dysarthria. Mood is ?depressed,? affect is constricted, tearful at times. Denies SI/SIB/HI upon inquiry. Denies A/VH or delusional thought content. Thoughts are coherent, organized. No known cognitive or memory impairment. Insight/ Judgment is poor due to chronic self harm behaviors and substance use. Diagnostics Vital Signs (24Hr): Vital Signs - 24 hr 11/27/21 18:00 11/28/21 06:00 Temperature 98.7 F 97.9 F Pulse Rate 89 68 Respiratory Rate 16 16 Blood Pressure 100/88 102/64 Pulse Oximetry 99 99 BMI result Body Mass Index 16.9 Labs Results: 11/23/21 13:23 11/23/21 13:23 Labs: Laboratory Results - last 48 hr 11/26/21 11/27/21 11/27/21 16:05 08:21 08:21 Estimat Average Glucose 105 Hemoglobin A1c % 5.3 Magnesium 1.9 Triglycerides 133 Cholesterol 189 LDL Cholesterol, Calc 103 HDL Cholesterol 60 Vitamin B12 Folate TSH 0.58 Free T4 0.90 COVID-19 ([facility]) Negative COVID-19 Clin Com See Note 11/27/21 08:21 Estimat Average Glucose Hemoglobin A1c % Magnesium Triglycerides Cholesterol LDL Cholesterol, Calc HDL Cholesterol Vitamin B12 1517 H Folate 10.1 TSH Free T4 COVID-19 ([facility]) COVID-19 Clin Com Medications Medications Current Medications Acetaminophen (Acetaminophen 325 Mg Tablet) 650 mg PO Q6H PRN PRN Reason: HEADACHE/MILD PAIN Last Admin: 11/27/21 16:48 Dose: 650 mg Documented by: Al Hydroxide/Mg Hydroxide (Magnesium Hydrox/Alum Hydrox 30 Ml Oral.Susp) 30 ml PO Q6H PRN PRN Reason: Heartburn/Nausea Benztropine Mesylate (Benztropine Mesylate 1 Mg Tablet) 1 mg PO BID PRN PRN Reason: EPS/dystonia Bethanechol Chloride (Bethanechol Chloride 25 Mg Tablet) 25 mg PO TIDAC [facility] Last Admin: 11/28/21 12:16 Dose: 25 mg Documented by: Clonazepam (Clonazepam 1 Mg Tablet) 2 mg PO BEDTIME [facility] Last Admin: 11/27/21 21:55 Dose: 2 mg Documented by: Clonidine HCl (Clonidine Hcl 0.1 Mg Tablet) 0.1 mg PO TID PRN; Protocol PRN Reason: for daytime anxiety and bedtime hyperarousal Last Admin: 11/25/21 20:59 Dose: 0.1 mg Documented by: Diphenhydramine HCl (Diphenhydramine Hcl 25 Mg Tablet) 25 mg PO BEDTIME [facility] Last Admin: 11/27/21 21:55 Dose: 25 mg Documented by: Duloxetine HCl (Duloxetine Hcl 30 Mg Capsule.Dr) 90 mg PO DAILY [facility] Last Admin: 11/28/21 08:39 Dose: 90 mg Documented by: Fluoxetine HCl (Fluoxetine Hcl 20 Mg Capsule) 20 mg PO DAILY [facility] Last Admin: 11/28/21 08:39 Dose: 20 mg Documented by: Gabapentin (Gabapentin 400 Mg Capsule) 400 mg PO DAILY PRN PRN Reason: BREAKTHROUGH NEUROPATHIC PAIN Gabapentin (Gabapentin 400 Mg Capsule) 800 mg PO BID [facility] Last Admin: 11/28/21 08:39 Dose: 800 mg Documented by: Hydroxyzine HCl (Hydroxyzine Hcl 25 Mg Tablet) 25 mg PO Q6H PRN PRN Reason: Anxiety Loperamide HCl (Loperamide Hcl 2 Mg Capsule) 4 mg PO Q4H PRN PRN Reason: Diarrhea Lurasidone HCl (Lurasidone Hcl 40 Mg Tablet) 40 mg PO BEDTIME [facility] Last Admin: 11/27/21 21:56 Dose: 40 mg Documented by: Magnesium Hydroxide (Milk Of Magnesia 30 Ml Oral.Susp) 30 ml PO DAILY PRN PRN Reason: Constipation Metoclopramide HCl (Metoclopramide Hcl 5 Mg Tablet) 5 mg PO TIDAC PRN PRN Reason: nausea and vomiting; motility Prazosin HCl (Prazosin Hcl 1 Mg Capsule) 2 mg PO BEDTIME [facility]; Protocol Last Admin: 11/27/21 21:56 Dose: 2 mg Documented by: Trazodone HCl (Trazodone Hcl 100 Mg Tablet) 100 mg PO BEDTIME [facility] Last Admin: 11/27/21 21:56 Dose: 100 mg Documented by: Zolpidem Tartrate (Zolpidem Tartrate 5 Mg Tablet) 5 mg PO BEDTIME [facility] Last Admin: 11/27/21 21:56 Dose: 5 mg Documented by: Allergies Allergies Allergy/AdvReac Type Severity Reaction Status Date / Time buspirone [From BuSpar] Allergy Swelling Verified 07/23/21 19:02 chlorpromazine Allergy Anaphylaxis Verified 07/23/21 19:02 [From Thorazine] lamotrigine [From Lamictal] Allergy Rash Verified 07/23/21 19:02 Sulfa (Sulfonamide Allergy Rash Verified 07/23/21 19:02 Antibiotics) linaclotide [From Linzess] AdvReac Abdominal Verified 07/23/21 19:02 Pain quetiapine [From Seroquel] AdvReac bad side Verified 07/23/21 19:02 effects' topiramate AdvReac Fogginess Verified 07/23/21 19:02 ziprasidone [From Geodon] AdvReac psychosis Verified 07/23/21 19:02 Assessment & Plan Assessment & Plan (1) Cocaine use disorder: Status: Acute Code(s): F14.10 - Cocaine abuse, uncomplicated (2) Major depressive disorder, recurrent, moderate: Status: Acute Code(s): F33.1 - Major depressive disorder, recurrent, moderate (3) Anorexia nervosa, restricting type: Status: Acute Code(s): F50.01 - Anorexia nervosa, restricting type (4) PTSD (post-traumatic stress disorder): Status: Acute Code(s): F43.10 - Post-traumatic stress disorder, unspecified Plan Zuleyma is a 35 y.o. Female who carries a dx of PTSD, likely BPD, anorexia nervosa, polysubstance abuse, and MDD, recurrent episode. She presented to [facility] ED on 09/21/21 reporting passive SI, using crack cocaine in an attempt to lose weight. Pt has multiple co-morbid medical concerns including ostomy bag, urinary retention, and chronic pain. Has long hx of IPLOC, PHP, and detox. Has OP psych services, psychiatrist is Dr. Anand. Plan: Will defer to primary treating provider for med adjustments, pt interested in increasing latuda.? CV, Q15 min safety checks Monitor response to medications. Monitor for safety in the milieu. Discharge on stabilization. Patient seen. Chart reviewed. Discussed with team. Obtain collateral contact info as needed I spent minutes with the patient and/or on the patient floor today, greater than?50% of which was spent counseling/coordinating care. Reason for contiued inpatient stay Substantial Risk for: harm to self, inability to function, rapid decompensation and med/psych decompensation
[2021-11-28 22:50] VITALS: BP 117/82; PULSE 85; TEMP 36.7
[2021-11-28] MEDS: traZODone HCL 100 MG TABLET PO (22:59)
[2021-11-28] MEDS: diphenhydrAMINE HCL 25 MG TABLET PO (22:59)
[2021-11-28] MEDS: Prazosin HCL 1 MG CAPSULE 2 MG PO (23:00)
[2021-11-28] MEDS: Lurasidone HCl 40 MG TABLET PO (23:04)
[2021-11-28] MEDS: clonazePAM 1 MG TABLET 2 MG PO (23:31)
[2021-11-28] MEDS: Zolpidem Tartrate 5 MG TABLET PO (23:31)
[2021-11-29 06:00] VITALS: BP 98/54; PULSE 94; RESP 16; TEMP 36.7; O2SAT 99
[2021-11-29] MEDS: DULoxetine HCl 30 MG CAPSULE.DR 90 MG PO (08:31)
[2021-11-29] MEDS: Gabapentin 400 MG CAPSULE 800 MG PO ×2 (08:31→22:52)
[2021-11-29] MEDS: Bethanechol Chloride 25 MG TABLET PO ×3 (08:31→16:44)
[2021-11-29] MEDS: FLUoxetine HCl 20 MG CAPSULE PO (08:31)
--- NOTE | 2021-11-29 12:39 | HO.PSYCHPN ---
Subjective Subjective Date of Service: 11/29/21 Reason For Visit: depression,SI Interim History: Patient reports she is doing OK today. She didn't feel as tired with the Prazosin and tolerated it well. She was having a visit with her BF when this functional tester typewriters asked to meet with her. She had a powerade and some protein bars that he had brought her. She feels her mood is improving. No SI. 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 Pt is frail appearing. Casual dress. Good eye contact, attentive. No Tics or Tremors. No abnormal involuntary movements. Calm, cooperative, engaged. Non-pressured speech, spontaneous with regular rate and rhythm, normal volume and prosody. No prolonged speech latency or dysarthria. Mood is ?better,? affect is constricted. Denies SI/SIB/HI upon inquiry. Denies A/VH or delusional thought content. Thoughts are coherent, organized. No known cognitive or memory impairment. Insight/ Judgment is poor due to chronic self harm behaviors and substance use. Diagnostics Vital Signs (24Hr): Vital Signs - 24 hr 11/28/21 22:50 11/29/21 06:00 Temperature 98.0 F 98.0 F Pulse Rate 85 94 Respiratory Rate 16 Blood Pressure 117/82 98/54 L Pulse Oximetry 99 BMI result Body Mass Index 16.9 Labs Results: 11/23/21 13:23 11/23/21 13:23 Medications Medications Current Medications Acetaminophen (Acetaminophen 325 Mg Tablet) 650 mg PO Q6H PRN PRN Reason: HEADACHE/MILD PAIN Last Admin: 11/27/21 16:48 Dose: 650 mg Documented by: Al Hydroxide/Mg Hydroxide (Magnesium Hydrox/Alum Hydrox 30 Ml Oral.Susp) 30 ml PO Q6H PRN PRN Reason: Heartburn/Nausea Benztropine Mesylate (Benztropine Mesylate 1 Mg Tablet) 1 mg PO BID PRN PRN Reason: EPS/dystonia Bethanechol Chloride (Bethanechol Chloride 25 Mg Tablet) 25 mg PO TIDAC [facility] Last Admin: 11/29/21 12:11 Dose: 25 mg Documented by: Clonazepam (Clonazepam 1 Mg Tablet) 2 mg PO BEDTIME [facility] Last Admin: 11/28/21 23:47 Dose: Not Given Documented by: Clonidine HCl (Clonidine Hcl 0.1 Mg Tablet) 0.1 mg PO TID PRN; Protocol PRN Reason: for daytime anxiety and bedtime hyperarousal Last Admin: 11/25/21 20:59 Dose: 0.1 mg Documented by: Diphenhydramine HCl (Diphenhydramine Hcl 25 Mg Tablet) 25 mg PO BEDTIME [facility] Last Admin: 11/28/21 22:59 Dose: 25 mg Documented by: Duloxetine HCl (Duloxetine Hcl 30 Mg Capsule.Dr) 90 mg PO DAILY [facility] Last Admin: 11/29/21 08:31 Dose: 90 mg Documented by: Fluoxetine HCl (Fluoxetine Hcl 20 Mg Capsule) 20 mg PO DAILY [facility] Last Admin: 11/29/21 08:31 Dose: 20 mg Documented by: Gabapentin (Gabapentin 400 Mg Capsule) 400 mg PO DAILY PRN PRN Reason: BREAKTHROUGH NEUROPATHIC PAIN Gabapentin (Gabapentin 400 Mg Capsule) 800 mg PO BID [facility] Last Admin: 11/29/21 08:31 Dose: 800 mg Documented by: Hydroxyzine HCl (Hydroxyzine Hcl 25 Mg Tablet) 25 mg PO Q6H PRN PRN Reason: Anxiety Loperamide HCl (Loperamide Hcl 2 Mg Capsule) 4 mg PO Q4H PRN PRN Reason: Diarrhea Lurasidone HCl (Lurasidone Hcl 40 Mg Tablet) 40 mg PO BEDTIME [facility] Last Admin: 11/28/21 23:04 Dose: 40 mg Documented by: Magnesium Hydroxide (Milk Of Magnesia 30 Ml Oral.Susp) 30 ml PO DAILY PRN PRN Reason: Constipation Metoclopramide HCl (Metoclopramide Hcl 5 Mg Tablet) 5 mg PO TIDAC PRN PRN Reason: nausea and vomiting; motility Prazosin HCl (Prazosin Hcl 1 Mg Capsule) 2 mg PO BEDTIME [facility]; Protocol Last Admin: 11/28/21 23:00 Dose: 2 mg Documented by: Trazodone HCl (Trazodone Hcl 100 Mg Tablet) 100 mg PO BEDTIME [facility] Last Admin: 11/28/21 22:59 Dose: 100 mg Documented by: Zolpidem Tartrate (Zolpidem Tartrate 5 Mg Tablet) 5 mg PO BEDTIME [facility] Last Admin: 11/28/21 23:48 Dose: Not Given Documented by: Allergies Allergies Allergy/AdvReac Type Severity Reaction Status Date / Time buspirone [From BuSpar] Allergy Swelling Verified 07/23/21 19:02 chlorpromazine Allergy Anaphylaxis Verified 07/23/21 19:02 [From Thorazine] lamotrigine [From Lamictal] Allergy Rash Verified 07/23/21 19:02 Sulfa (Sulfonamide Allergy Rash Verified 07/23/21 19:02 Antibiotics) linaclotide [From Linzess] AdvReac Abdominal Verified 07/23/21 19:02 Pain quetiapine [From Seroquel] AdvReac bad side Verified 07/23/21 19:02 effects' topiramate AdvReac Fogginess Verified 07/23/21 19:02 ziprasidone [From Geodon] AdvReac psychosis Verified 07/23/21 19:02 Assessment & Plan Assessment & Plan (1) Cocaine use disorder: Status: Acute Code(s): F14.10 - Cocaine abuse, uncomplicated (2) Major depressive disorder, recurrent, moderate: Status: Acute Code(s): F33.1 - Major depressive disorder, recurrent, moderate (3) Anorexia nervosa, restricting type: Status: Acute Code(s): F50.01 - Anorexia nervosa, restricting type (4) PTSD (post-traumatic stress disorder): Status: Acute Code(s): F43.10 - Post-traumatic stress disorder, unspecified Plan Zuleyma is a 35 y.o. Female who carries a dx of PTSD, likely BPD, anorexia nervosa, polysubstance abuse, and MDD, recurrent episode. She presented to [facility] [place] ED on 09/21/21 reporting passive SI, using crack cocaine in an attempt to lose weight. Pt has multiple co-morbid medical concerns including ostomy bag, urinary retention, and chronic pain. Has long hx of IPLOC, PHP, and detox. Has OP psych services, psychiatrist is Dr. Anand. Plan: Will defer to primary treating provider for med adjustments, pt interested in increasing latuda.? CV, Q15 min safety checks Monitor response to medications. Monitor for safety in the milieu. Discharge on stabilization. Patient seen. Chart reviewed. Discussed with team. Obtain collateral contact info as needed 11/29: Continue treatment plan. I spent minutes with the patient and/or on the patient floor today, greater than?50% of which was spent counseling/coordinating care. Reason for contiued inpatient stay Substantial Risk for: harm to self and rapid decompensation
[2021-11-29 22:45] VITALS: BP 118/66; PULSE 92; TEMP 36.1
[2021-11-29] MEDS: Prazosin HCL 1 MG CAPSULE 2 MG PO (22:53)
[2021-11-29] MEDS: clonazePAM 1 MG TABLET 2 MG PO (22:53)
[2021-11-29] MEDS: diphenhydrAMINE HCL 25 MG TABLET PO (22:54)
[2021-11-29] MEDS: Zolpidem Tartrate 5 MG TABLET PO (22:55)
[2021-11-29] MEDS: Lurasidone HCl 40 MG TABLET PO (22:55)
[2021-11-29] MEDS: traZODone HCL 100 MG TABLET PO (22:55)
[2021-11-30 06:00] VITALS: BP 106/62; PULSE 90; RESP 16; TEMP 36.6; O2SAT 99
[2021-11-30] MEDS: Bethanechol Chloride 25 MG TABLET PO ×3 (08:18→16:15)
[2021-11-30] MEDS: DULoxetine HCl 30 MG CAPSULE.DR 90 MG PO (08:18)
[2021-11-30] MEDS: FLUoxetine HCl 20 MG CAPSULE PO (08:18)
[2021-11-30] MEDS: Gabapentin 400 MG CAPSULE 800 MG PO ×2 (08:19→21:52)
--- NOTE | 2021-11-30 14:25 | HO.PSYCHPN ---
Subjective Subjective Date of Service: 11/30/21 Reason For Visit: depression,SI Interim History: Patient reports she is doing OK today. Says her mood is better. She offers no complaints. She is social on the unit. Denies SI. 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 Pt is frail appearing. Casual dress. Good eye contact, attentive. No Tics or Tremors. No abnormal involuntary movements. Calm, cooperative, engaged. Non-pressured speech, spontaneous with regular rate and rhythm, normal volume and prosody. No prolonged speech latency or dysarthria. Mood is ?better,? affect is constricted. Denies SI/SIB/HI upon inquiry. Denies A/VH or delusional thought content. Thoughts are coherent, organized. No known cognitive or memory impairment. Insight/ Judgment is poor due to chronic self harm behaviors and substance use. Diagnostics Vital Signs (24Hr): Vital Signs - 24 hr 11/29/21 22:45 11/30/21 06:00 Temperature 96.9 F 97.9 F Pulse Rate 92 90 Respiratory Rate 16 Blood Pressure 118/66 106/62 Pulse Oximetry 99 BMI result Body Mass Index 16.9 Labs Results: 11/23/21 13:23 11/23/21 13:23 Medications Medications Current Medications Acetaminophen (Acetaminophen 325 Mg Tablet) 650 mg PO Q6H PRN PRN Reason: HEADACHE/MILD PAIN Last Admin: 11/27/21 16:48 Dose: 650 mg Documented by: Al Hydroxide/Mg Hydroxide (Magnesium Hydrox/Alum Hydrox 30 Ml Oral.Susp) 30 ml PO Q6H PRN PRN Reason: Heartburn/Nausea Benztropine Mesylate (Benztropine Mesylate 1 Mg Tablet) 1 mg PO BID PRN PRN Reason: EPS/dystonia Bethanechol Chloride (Bethanechol Chloride 25 Mg Tablet) 25 mg PO TIDAC [facility] Last Admin: 11/30/21 12:18 Dose: 25 mg Documented by: Clonazepam (Clonazepam 1 Mg Tablet) 2 mg PO BEDTIME [facility] Last Admin: 11/29/21 22:53 Dose: 2 mg Documented by: Clonidine HCl (Clonidine Hcl 0.1 Mg Tablet) 0.1 mg PO TID PRN; Protocol PRN Reason: for daytime anxiety and bedtime hyperarousal Last Admin: 11/25/21 20:59 Dose: 0.1 mg Documented by: Diphenhydramine HCl (Diphenhydramine Hcl 25 Mg Tablet) 25 mg PO BEDTIME [facility] Last Admin: 11/29/21 22:54 Dose: 25 mg Documented by: Duloxetine HCl (Duloxetine Hcl 30 Mg Capsule.Dr) 90 mg PO DAILY [facility] Last Admin: 11/30/21 08:18 Dose: 90 mg Documented by: Fluoxetine HCl (Fluoxetine Hcl 20 Mg Capsule) 20 mg PO DAILY [facility] Last Admin: 11/30/21 08:18 Dose: 20 mg Documented by: Gabapentin (Gabapentin 400 Mg Capsule) 400 mg PO DAILY PRN PRN Reason: BREAKTHROUGH NEUROPATHIC PAIN Gabapentin (Gabapentin 400 Mg Capsule) 800 mg PO BID [facility] Last Admin: 11/30/21 08:19 Dose: 800 mg Documented by: Hydroxyzine HCl (Hydroxyzine Hcl 25 Mg Tablet) 25 mg PO Q6H PRN PRN Reason: Anxiety Loperamide HCl (Loperamide Hcl 2 Mg Capsule) 4 mg PO Q4H PRN PRN Reason: Diarrhea Lurasidone HCl (Lurasidone Hcl 40 Mg Tablet) 40 mg PO BEDTIME [facility] Last Admin: 11/29/21 22:55 Dose: 40 mg Documented by: Magnesium Hydroxide (Milk Of Magnesia 30 Ml Oral.Susp) 30 ml PO DAILY PRN PRN Reason: Constipation Metoclopramide HCl (Metoclopramide Hcl 5 Mg Tablet) 5 mg PO TIDAC PRN PRN Reason: nausea and vomiting; motility Prazosin HCl (Prazosin Hcl 1 Mg Capsule) 2 mg PO BEDTIME [facility]; Protocol Last Admin: 11/29/21 22:53 Dose: 2 mg Documented by: Trazodone HCl (Trazodone Hcl 100 Mg Tablet) 100 mg PO BEDTIME [facility] Last Admin: 11/29/21 22:55 Dose: 100 mg Documented by: Zolpidem Tartrate (Zolpidem Tartrate 5 Mg Tablet) 5 mg PO BEDTIME [facility] Last Admin: 11/29/21 22:55 Dose: 5 mg Documented by: Allergies Allergies Allergy/AdvReac Type Severity Reaction Status Date / Time buspirone [From BuSpar] Allergy Swelling Verified 07/23/21 19:02 chlorpromazine Allergy Anaphylaxis Verified 07/23/21 19:02 [From Thorazine] lamotrigine [From Lamictal] Allergy Rash Verified 07/23/21 19:02 Sulfa (Sulfonamide Allergy Rash Verified 07/23/21 19:02 Antibiotics) linaclotide [From Linzess] AdvReac Abdominal Verified 07/23/21 19:02 Pain quetiapine [From Seroquel] AdvReac bad side Verified 07/23/21 19:02 effects' topiramate AdvReac Fogginess Verified 07/23/21 19:02 ziprasidone [From Geodon] AdvReac psychosis Verified 07/23/21 19:02 Assessment & Plan Assessment & Plan (1) Cocaine use disorder: Status: Acute Code(s): F14.10 - Cocaine abuse, uncomplicated (2) Major depressive disorder, recurrent, moderate: Status: Acute Code(s): F33.1 - Major depressive disorder, recurrent, moderate (3) Anorexia nervosa, restricting type: Status: Acute Code(s): F50.01 - Anorexia nervosa, restricting type (4) PTSD (post-traumatic stress disorder): Status: Acute Code(s): F43.10 - Post-traumatic stress disorder, unspecified Plan Zuleyma is a 35 y.o. Female who carries a dx of PTSD, likely BPD, anorexia nervosa, polysubstance abuse, and MDD, recurrent episode. She presented to [facility] ED on 09/21/21 reporting passive SI, using crack cocaine in an attempt to lose weight. Pt has multiple co-morbid medical concerns including ostomy bag, urinary retention, and chronic pain. Has long hx of IPLOC, PHP, and detox. Has OP psych services, psychiatrist is Dr. Anand. Plan: Will defer to primary treating provider for med adjustments, pt interested in increasing latuda.? CV, Q15 min safety checks Monitor response to medications. Monitor for safety in the milieu. Discharge on stabilization. Patient seen. Chart reviewed. Discussed with team. Obtain collateral contact info as needed 11/29: Continue treatment plan. 11/30 Continue current tx plan. I spent minutes with the patient and/or on the patient floor today, greater than?50% of which was spent counseling/coordinating care. Reason for contiued inpatient stay Substantial Risk for: harm to self and rapid decompensation
[2021-11-30] MEDS: Metoclopramide HCl 5 MG TABLET PO (17:11)
[2021-11-30 18:00] VITALS: BP 112/70; PULSE 89; TEMP 36.7; O2SAT 100
[2021-11-30] MEDS: diphenhydrAMINE HCL 25 MG TABLET PO (21:51)
[2021-11-30] MEDS: traZODone HCL 100 MG TABLET PO (21:51)
[2021-11-30] MEDS: Prazosin HCL 1 MG CAPSULE 2 MG PO (21:51)
[2021-11-30] MEDS: Zolpidem Tartrate 5 MG TABLET PO (21:51)
[2021-11-30] MEDS: clonazePAM 1 MG TABLET 2 MG PO (21:52)
[2021-11-30] MEDS: Lurasidone HCl 40 MG TABLET PO (21:52)
[2021-12-01 06:25] VITALS: BP 96/53; PULSE 75; TEMP 36.1; O2SAT 98
[2021-12-01] MEDS: FLUoxetine HCl 20 MG CAPSULE PO (09:08)
[2021-12-01] MEDS: Gabapentin 400 MG CAPSULE 800 MG PO ×2 (09:08→22:52)
[2021-12-01] MEDS: Bethanechol Chloride 25 MG TABLET PO ×3 (09:08→16:36)
[2021-12-01] MEDS: DULoxetine HCl 30 MG CAPSULE.DR 90 MG PO (09:08)
--- NOTE | 2021-12-01 10:41 | HO.PSYCHPN ---
Subjective Subjective Date of Service: 12/01/21 Reason For Visit: depression,SI Interim History: pt reports she remains depressed and struggles to have hope, struggles to not hate herself. Pt asks for help setting up plan for stability; discussed options w/ medical technical writer and SW. Asks for family meeting with her partner Kashif. Asks for latuda to be increased; she said when on unit, she's stable at 40mg but once she leaves the unit, faced with lifes' struggles she feels she quickly unravels. Mental Status Exam Mental Status Exam Narrative: A&O. Pt is frail appearing, in casual attire. Good eye contact, attentive. No Tics or Tremors. No abnormal involuntary movements. Calm, cooperative, engaged, tearful. Non-pressured speech, spontaneous with regular rate and rhythm, normal volume and prosody. No prolonged speech latency or dysarthria. Mood is ?depressed,? affect is constricted, tearful at times. Denies SI/SIB/HI upon inquiry. Denies A/VH or delusional thought content. Thoughts are coherent, organized. No known cognitive or memory impairment. Insight/ Judgment is poor due to chronic self harm behaviors and substance use. Diagnostics Vital Signs (24Hr): Vital Signs - 24 hr 11/30/21 18:00 12/01/21 06:25 Temperature 98.0 F 97 F Pulse Rate 89 75 Blood Pressure 112/70 96/53 L Pulse Oximetry 100 98 BMI result Body Mass Index 16.9 Labs Results: 11/23/21 13:23 11/23/21 13:23 Medications Medications Current Medications Acetaminophen (Acetaminophen 325 Mg Tablet) 650 mg PO Q6H PRN PRN Reason: HEADACHE/MILD PAIN Last Admin: 11/27/21 16:48 Dose: 650 mg Documented by: Al Hydroxide/Mg Hydroxide (Magnesium Hydrox/Alum Hydrox 30 Ml Oral.Susp) 30 ml PO Q6H PRN PRN Reason: Heartburn/Nausea Benztropine Mesylate (Benztropine Mesylate 1 Mg Tablet) 1 mg PO BID PRN PRN Reason: EPS/dystonia Bethanechol Chloride (Bethanechol Chloride 25 Mg Tablet) 25 mg PO TIDAC [facility] Last Admin: 12/01/21 09:08 Dose: 25 mg Documented by: Clonazepam (Clonazepam 1 Mg Tablet) 2 mg PO BEDTIME [facility] Last Admin: 11/30/21 21:52 Dose: 2 mg Documented by: Clonidine HCl (Clonidine Hcl 0.1 Mg Tablet) 0.1 mg PO TID PRN; Protocol PRN Reason: for daytime anxiety and bedtime hyperarousal Last Admin: 11/25/21 20:59 Dose: 0.1 mg Documented by: Diphenhydramine HCl (Diphenhydramine Hcl 25 Mg Tablet) 25 mg PO BEDTIME [facility] Last Admin: 11/30/21 21:51 Dose: 25 mg Documented by: Duloxetine HCl (Duloxetine Hcl 30 Mg Capsule.Dr) 90 mg PO DAILY [facility] Last Admin: 12/01/21 09:08 Dose: 90 mg Documented by: Fluoxetine HCl (Fluoxetine Hcl 20 Mg Capsule) 20 mg PO DAILY [facility] Last Admin: 12/01/21 09:08 Dose: 20 mg Documented by: Gabapentin (Gabapentin 400 Mg Capsule) 400 mg PO DAILY PRN PRN Reason: BREAKTHROUGH NEUROPATHIC PAIN Gabapentin (Gabapentin 400 Mg Capsule) 800 mg PO BID [facility] Last Admin: 12/01/21 09:08 Dose: 800 mg Documented by: Hydroxyzine HCl (Hydroxyzine Hcl 25 Mg Tablet) 25 mg PO Q6H PRN PRN Reason: Anxiety Loperamide HCl (Loperamide Hcl 2 Mg Capsule) 4 mg PO Q4H PRN PRN Reason: Diarrhea Lurasidone HCl (Lurasidone Hcl 40 Mg Tablet) 40 mg PO BEDTIME [facility] Last Admin: 11/30/21 21:52 Dose: 40 mg Documented by: Magnesium Hydroxide (Milk Of Magnesia 30 Ml Oral.Susp) 30 ml PO DAILY PRN PRN Reason: Constipation Metoclopramide HCl (Metoclopramide Hcl 5 Mg Tablet) 5 mg PO TIDAC PRN PRN Reason: nausea and vomiting; motility Last Admin: 11/30/21 17:11 Dose: 5 mg Documented by: Prazosin HCl (Prazosin Hcl 1 Mg Capsule) 2 mg PO BEDTIME [facility]; Protocol Last Admin: 11/30/21 21:51 Dose: 2 mg Documented by: Trazodone HCl (Trazodone Hcl 100 Mg Tablet) 100 mg PO BEDTIME [facility] Last Admin: 11/30/21 21:51 Dose: 100 mg Documented by: Zolpidem Tartrate (Zolpidem Tartrate 5 Mg Tablet) 5 mg PO BEDTIME [facility] Last Admin: 11/30/21 21:51 Dose: 5 mg Documented by: Allergies Allergies Allergy/AdvReac Type Severity Reaction Status Date / Time buspirone [From BuSpar] Allergy Swelling Verified 07/23/21 19:02 chlorpromazine Allergy Anaphylaxis Verified 07/23/21 19:02 [From Thorazine] lamotrigine [From Lamictal] Allergy Rash Verified 07/23/21 19:02 Sulfa (Sulfonamide Allergy Rash Verified 07/23/21 19:02 Antibiotics) linaclotide [From Linzess] AdvReac Abdominal Verified 07/23/21 19:02 Pain quetiapine [From Seroquel] AdvReac bad side Verified 07/23/21 19:02 effects' topiramate AdvReac Fogginess Verified 07/23/21 19:02 ziprasidone [From Geodon] AdvReac psychosis Verified 07/23/21 19:02 Assessment & Plan Assessment & Plan (1) Major depressive disorder, recurrent, moderate: Status: Acute Code(s): F33.1 - Major depressive disorder, recurrent, moderate (2) PTSD (post-traumatic stress disorder): Status: Acute Code(s): F43.10 - Post-traumatic stress disorder, unspecified (3) Anorexia nervosa, restricting type: Status: Acute Code(s): F50.01 - Anorexia nervosa, restricting type (4) Cocaine use disorder: Status: Acute Code(s): F14.10 - Cocaine abuse, uncomplicated (5) Ileostomy present: Status: Acute Code(s): Z93.2 - Ileostomy status Plan Zuleyma is a 35 y.o. Female who carries a dx of PTSD, anorexia nervosa, polysubstance abuse, and MDD, recurrent episode. She presented to [facility] on 09/21/21 reporting passive SI, using crack cocaine in an attempt to lose weight. Pt has multiple co-morbid medical concerns including ostomy bag, urinary retention, and chronic pain. Has long hx of IPLOC, PHP, and detox. Has OP psych services, psychiatrist was Dr. Anand. Patient reports that she relapsed about 3 days after her last discharge. She said that IOP was helpful and she started getting open there and was able to get sober with the help of her boyfriend. She reports she has been sober for the past week prior to this admission however she has been restricting her food significantly and cannot seem to get herself to eat again. She reports depression and intermittent SI though she does not have a plan or intent. Patient says she does fully wants help. She does not feel she can get herself towards healthier eating without structure of inpatient setting. Hygiene Coordinator and patient discussed how her substance abuse seems to be the main thing that derails her progress, even more than her eating disorder and that as long as she continues to both minimize and hide her abuse from her significant other and outpatient providers and fail to fully engage in substance abuse treatment, this pattern will remain. Patient agrees. IMPRESSION: It is medical technical writer's opinion that patient requires the structure of inpatient admission in order to stabilize Currently continue home medications as LFTs are only mildly elevated Increase Latuda to 60mg; pt says stability not lasting once off unit Pt is not stable for discharge and will rapidly decompensate unless stable aftercare can be established; will met with les to help facilitate this I spent minutes with the patient and/or on the patient floor today, greater than?50% of which was spent counseling/coordinating care. Patient educated on: diagnosis, medication risk/benefits and substance abuse Informed Consent: understands Reason for contiued inpatient stay Substantial Risk for: rapid decompensation
[2021-12-01] MEDS: Metoclopramide HCl 5 MG TABLET PO (15:17)
[2021-12-01] MEDS: Ondansetron ODT 4 MG TAB.RAPDIS TRANSLINGU (16:36)
[2021-12-01 18:00] VITALS: BP 117/76; PULSE 88; TEMP 36.9; O2SAT 100
[2021-12-01] MEDS: Lurasidone HCl 20 MG TABLET 60 MG PO (22:51)
[2021-12-01] MEDS: diphenhydrAMINE HCL 25 MG TABLET PO (22:51)
[2021-12-01] MEDS: Prazosin HCL 1 MG CAPSULE 2 MG PO (22:52)
[2021-12-01] MEDS: Zolpidem Tartrate 5 MG TABLET PO (22:52)
[2021-12-01] MEDS: clonazePAM 1 MG TABLET 2 MG PO (22:52)
[2021-12-01] MEDS: traZODone HCL 100 MG TABLET PO (22:52)
[2021-12-02 06:00] VITALS: BP 100/55; PULSE 75; RESP 16; TEMP 37.2; O2SAT 97
[2021-12-02] MEDS: FLUoxetine HCl 20 MG CAPSULE PO (08:26)
[2021-12-02] MEDS: DULoxetine HCl 30 MG CAPSULE.DR 90 MG PO (08:26)
[2021-12-02] MEDS: Gabapentin 400 MG CAPSULE 800 MG PO ×2 (08:26→22:57)
[2021-12-02] MEDS: Bethanechol Chloride 25 MG TABLET PO ×3 (08:27→16:39)
--- NOTE | 2021-12-02 10:38 | P.PNPSI_ITS ---
Subjective Subjective Date of Service: 12/02/21 Reason For Visit: depression,SI Interim History: Patient depressed but has increasing Hope. Family meeting with her partner Kashif who came in to discuss helping patient remained sober. Both had a kareem discussion about patient's need to be open and surround herself with supportive sober people, be fully engaged in treatment and focus on sobriety. Patient starting to eat in a more healthy way Patient struggling with insomnia. Mental Status Exam Mental Status Exam Narrative: A&O. Pt is frail appearing, in casual attire. Good eye contact, attentive. No Tics or Tremors. No abnormal involuntary movements. Calm, cooperative, engaged, tearful. Non-pressured speech, spontaneous with regular rate and rhythm, normal volume and prosody. No prolonged speech latency or dysarthria. Mood is ?depressed,? affect is constricted, tearful at times. Denies SI/SIB/HI upon inquiry. Denies A/VH or delusional thought content. Thoughts are coherent, organized. No known cognitive or memory impairment. Insight/ Judgment is poor due to chronic self harm behaviors and substance use. Diagnostics Vital Signs (24Hr): Vital Signs - 24 hr 12/01/21 18:00 12/02/21 06:00 Temperature 98.4 F 98.9 F Pulse Rate 88 75 Respiratory Rate 16 Blood Pressure 117/76 100/55 L Pulse Oximetry 100 97 BMI result Body Mass Index 16.9 Labs Results: 11/23/21 13:23 11/23/21 13:23 Medications Medications Current Medications Acetaminophen (Acetaminophen 325 Mg Tablet) 650 mg PO Q6H PRN PRN Reason: HEADACHE/MILD PAIN Last Admin: 11/27/21 16:48 Dose: 650 mg Documented by: Al Hydroxide/Mg Hydroxide (Magnesium Hydrox/Alum Hydrox 30 Ml Oral.Susp) 30 ml PO Q6H PRN PRN Reason: Heartburn/Nausea Benztropine Mesylate (Benztropine Mesylate 1 Mg Tablet) 1 mg PO BID PRN PRN Reason: EPS/dystonia Bethanechol Chloride (Bethanechol Chloride 25 Mg Tablet) 25 mg PO TIDAC [facility] Last Admin: 12/02/21 08:27 Dose: 25 mg Documented by: Clonazepam (Clonazepam 1 Mg Tablet) 2 mg PO BEDTIME [facility] Last Admin: 12/01/21 22:52 Dose: 2 mg Documented by: Clonidine HCl (Clonidine Hcl 0.1 Mg Tablet) 0.1 mg PO TID PRN; Protocol PRN Reason: for daytime anxiety and bedtime hyperarousal Last Admin: 11/25/21 20:59 Dose: 0.1 mg Documented by: Diphenhydramine HCl (Diphenhydramine Hcl 25 Mg Tablet) 25 mg PO BEDTIME [facility] Last Admin: 12/01/21 22:51 Dose: 25 mg Documented by: Duloxetine HCl (Duloxetine Hcl 30 Mg Capsule.Dr) 90 mg PO DAILY [facility] Last Admin: 12/02/21 08:26 Dose: 90 mg Documented by: Fluoxetine HCl (Fluoxetine Hcl 20 Mg Capsule) 20 mg PO DAILY [facility] Last Admin: 12/02/21 08:26 Dose: 20 mg Documented by: Gabapentin (Gabapentin 400 Mg Capsule) 400 mg PO DAILY PRN PRN Reason: BREAKTHROUGH NEUROPATHIC PAIN Gabapentin (Gabapentin 400 Mg Capsule) 800 mg PO BID [facility] Last Admin: 12/02/21 08:26 Dose: 800 mg Documented by: Hydroxyzine HCl (Hydroxyzine Hcl 25 Mg Tablet) 25 mg PO Q6H PRN PRN Reason: Anxiety Loperamide HCl (Loperamide Hcl 2 Mg Capsule) 4 mg PO Q4H PRN PRN Reason: Diarrhea Lurasidone HCl (Lurasidone Hcl 20 Mg Tablet) 60 mg PO BEDTIME [facility] Last Admin: 12/01/21 22:51 Dose: 60 mg Documented by: Magnesium Hydroxide (Milk Of Magnesia 30 Ml Oral.Susp) 30 ml PO DAILY PRN PRN Reason: Constipation Metoclopramide HCl (Metoclopramide Hcl 5 Mg Tablet) 5 mg PO TIDAC PRN PRN Reason: slow gut motility Ondansetron HCl (Ondansetron Odt 4 Mg Tab.Rapdis) 4 mg TRANSLINGU Q6H PRN PRN Reason: nausea/vomiting Last Admin: 12/01/21 16:36 Dose: 4 mg Documented by: Prazosin HCl (Prazosin Hcl 1 Mg Capsule) 2 mg PO BEDTIME [facility]; Protocol Last Admin: 12/01/21 22:52 Dose: 2 mg Documented by: Trazodone HCl (Trazodone Hcl 100 Mg Tablet) 100 mg PO BEDTIME [facility] Last Admin: 12/01/21 22:52 Dose: 100 mg Documented by: Zolpidem Tartrate (Zolpidem Tartrate 5 Mg Tablet) 5 mg PO BEDTIME [facility] Last Admin: 12/01/21 22:52 Dose: 5 mg Documented by: Allergies Allergies Allergy/AdvReac Type Severity Reaction Status Date / Time buspirone [From BuSpar] Allergy Swelling Verified 07/23/21 19:02 chlorpromazine Allergy Anaphylaxis Verified 07/23/21 19:02 [From Thorazine] lamotrigine [From Lamictal] Allergy Rash Verified 07/23/21 19:02 Sulfa (Sulfonamide Allergy Rash Verified 07/23/21 19:02 Antibiotics) linaclotide [From Linzess] AdvReac Abdominal Verified 07/23/21 19:02 Pain quetiapine [From Seroquel] AdvReac bad side Verified 07/23/21 19:02 effects' topiramate AdvReac Fogginess Verified 07/23/21 19:02 ziprasidone [From Geodon] AdvReac psychosis Verified 07/23/21 19:02 Assessment & Plan Assessment & Plan (1) Major depressive disorder, recurrent, moderate: Status: Acute Code(s): F33.1 - Major depressive disorder, recurrent, moderate (2) PTSD (post-traumatic stress disorder): Status: Acute Code(s): F43.10 - Post-traumatic stress disorder, unspecified (3) Anorexia nervosa, restricting type: Status: Acute Code(s): F50.01 - Anorexia nervosa, restricting type (4) Cocaine use disorder: Status: Acute Code(s): F14.10 - Cocaine abuse, uncomplicated (5) Ileostomy present: Status: Acute Code(s): Z93.2 - Ileostomy status Plan Zuleyma is a 35 y.o. Female who carries a dx of PTSD, anorexia nervosa, polysubstance abuse, and MDD, recurrent episode. She presented to [facility] on 09/21/21 reporting passive SI, using crack cocaine in an attempt to lose weight. Pt has multiple co-morbid medical concerns including ostomy bag, urinary retenti on, and chronic pain. Has long hx of IPLOC, PHP, and detox. Has OP psych services, psychiatrist was Dr. Anand. Patient reports that she relapsed about 3 days after her last discharge. She said that IOP was helpful and she started getting open there and was able to get sober with the help of her boyfriend. She reports she has been sober for the past week prior to this admission however she has been restricting her food significantly and cannot seem to get herself to eat again. She reports d epression and intermittent SI though she does not have a plan or intent. Patient says she does fully wants help. She does not feel she can get herself towards healthier eating without structure of inpatient setting. Propellant Assembler and patient discussed how her substance abuse seems to be the main thing that derails her progress, even more than her eating disorder and that as long as she continues to both minimize and hide her abuse from her significant other and outpatient providers and fail to fully engage in substance abuse treatment, this pattern will remain. Patient agrees. 12/02 started to stabilize; eating more healthy; family meeting with long-term boyfriend; It is senior underwriter's opinion that patient requires the structure of inpatient admission in order to stabilize and regain healthy eating habits; otherwise will rapidly declined. Patient also needs aftercare set up in order to remain sober IMPRESSION: CV Q 15 minute checks DC prazosin: Not effective Start clonidine 0.1 mg q.h.s. for insomnia/nightmares Increase trazodone to 125 mg for insomnia (doses at 200 mg lead to problematic nightmares) Increased Latuda to 60mg; pt says stability not lasting once off unit I spent minutes with the patient and/or on the patient floor today, greater than?50% of which was spent counseling/coordinating care. Patient educated on: medication risk/benefits and therapeutic strategies Informed Consent: understands Reason for contiued inpatient stay Substantial Risk for: rapid decompensation
[2021-12-02 22:45] VITALS: BP 119/76; PULSE 81; TEMP 36.9; O2SAT 100
[2021-12-02] MEDS: Zolpidem Tartrate 5 MG TABLET PO (22:56)
[2021-12-02] MEDS: Lurasidone HCl 20 MG TABLET 60 MG PO (22:57)
[2021-12-02] MEDS: clonazePAM 1 MG TABLET 2 MG PO (22:58)
[2021-12-02] MEDS: cloNIDine HCL 0.1 MG TABLET PO (22:59)
[2021-12-02] MEDS: diphenhydrAMINE HCL 25 MG TABLET PO (22:59)
[2021-12-03 06:00] VITALS: BP 98/54; PULSE 75; TEMP 37; O2SAT 98
[2021-12-03] MEDS: Bethanechol Chloride 25 MG TABLET PO ×3 (08:56→16:21)
[2021-12-03] MEDS: FLUoxetine HCl 20 MG CAPSULE PO (08:56)
[2021-12-03] MEDS: DULoxetine HCl 30 MG CAPSULE.DR 90 MG PO (08:56)
[2021-12-03] MEDS: Gabapentin 400 MG CAPSULE 800 MG PO ×2 (08:56→22:48)
--- NOTE | 2021-12-03 17:06 | P.PNPSI_ITS ---
Subjective Subjective Date of Service: 12/03/21 Reason For Visit: depression,SI Interim History: Slept last night on increased trazodone. Improved mood and no SI; more healthy eating; did get triggered on the unit when she was berrarted by a manic patient for being thin; said it caused her to think about using substances and about restricting, however she was able to calm herself and thoughts resolved. Patient focused on IOP next week. Mental Status Exam Mental Status Exam Narrative: A&O. Pt is frail appearing, in casual attire. Good eye contact, attentive. No Tics or Tremors. No abnormal involuntary movements. Calm, cooperative, engaged; mood is better; affect, calm, congruent Speech is Non-pressured , spontaneous with regular rate and rhythm, normal volume and prosody. No latency or dysarthria. Denies SI/SIB/HI upon inquiry. Denies A/VH or delusional thought content. Thought process organized, linear and goal oriented. Thought content call on continued recovery, working on sobriety, thinking positively about eating, fighting off negative self-deprecating thoughts. Insight/ Judgment impaired but improved and adequate. Diagnostics Vital Signs (24Hr): Vital Signs - 24 hr 12/02/21 22:45 12/03/21 06:00 Temperature 98.4 F 98.6 F Pulse Rate 81 75 Blood Pressure 119/76 98/54 L Pulse Oximetry 100 98 BMI result Body Mass Index 16.9 Labs Results: 11/23/21 13:23 11/23/21 13:23 Medications Medications Current Medications Acetaminophen (Acetaminophen 325 Mg Tablet) 650 mg PO Q6H PRN PRN Reason: HEADACHE/MILD PAIN Last Admin: 11/27/21 16:48 Dose: 650 mg Documented by: Al Hydroxide/Mg Hydroxide (Magnesium Hydrox/Alum Hydrox 30 Ml Oral.Susp) 30 ml PO Q6H PRN PRN Reason: Heartburn/Nausea Benztropine Mesylate (Benztropine Mesylate 1 Mg Tablet) 1 mg PO BID PRN PRN Reason: EPS/dystonia Bethanechol Chloride (Bethanechol Chloride 25 Mg Tablet) 25 mg PO TIDAC [facility] Last Admin: 12/03/21 16:21 Dose: 25 mg Documented by: Clonazepam (Clonazepam 1 Mg Tablet) 2 mg PO BEDTIME [facility] Last Admin: 12/02/21 22:58 Dose: 2 mg Documented by: Clonidine HCl (Clonidine Hcl 0.1 Mg Tablet) 0.1 mg PO TID PRN; Protocol PRN Reason: for daytime anxiety and bedtime hyperarousal Last Admin: 11/25/21 20:59 Dose: 0.1 mg Documented by: Clonidine HCl (Clonidine Hcl 0.1 Mg Tablet) 0.1 mg PO BEDTIME [facility]; Protocol Last Admin: 12/02/21 22:59 Dose: 0.1 mg Documented by: Diphenhydramine HCl (Diphenhydramine Hcl 25 Mg Tablet) 25 mg PO BEDTIME [facility] Last Admin: 12/02/21 22:59 Dose: 25 mg Documented by: Duloxetine HCl (Duloxetine Hcl 30 Mg Capsule.Dr) 90 mg PO DAILY [facility] Last Admin: 12/03/21 08:56 Dose: 90 mg Documented by: Fluoxetine HCl (Fluoxetine Hcl 20 Mg Capsule) 20 mg PO DAILY [facility] Last Admin: 12/03/21 08:56 Dose: 20 mg Documented by: Gabapentin (Gabapentin 400 Mg Capsule) 400 mg PO DAILY PRN PRN Reason: BREAKTHROUGH NEUROPATHIC PAIN Gabapentin (Gabapentin 400 Mg Capsule) 800 mg PO BID [facility] Last Admin: 12/03/21 08:56 Dose: 800 mg Documented by: Hydroxyzine HCl (Hydroxyzine Hcl 25 Mg Tablet) 25 mg PO Q6H PRN PRN Reason: Anxiety Loperamide HCl (Loperamide Hcl 2 Mg Capsule) 4 mg PO Q4H PRN PRN Reason: Diarrhea Lurasidone HCl (Lurasidone Hcl 20 Mg Tablet) 60 mg PO BEDTIME [facility] Last Admin: 12/02/21 22:57 Dose: 60 mg Documented by: Magnesium Hydroxide (Milk Of Magnesia 30 Ml Oral.Susp) 30 ml PO DAILY PRN PRN Reason: Constipation Metoclopramide HCl (Metoclopramide Hcl 5 Mg Tablet) 5 mg PO TIDAC PRN PRN Reason: slow gut motility Ondansetron HCl (Ondansetron Odt 4 Mg Tab.Rapdis) 4 mg TRANSLINGU Q6H PRN PRN Reason: nausea/vomiting Last Admin: 12/01/21 16:36 Dose: 4 mg Documented by: Trazodone HCl 100 mg/ (Trazodone HCl 25 mg) 125 mg PO BEDTIME [facility] Last Admin: 12/02/21 22:56 Dose: 125 mg Documented by: Zolpidem Tartrate (Zolpidem Tartrate 5 Mg Tablet) 5 mg PO BEDTIME [facility] Last Admin: 12/02/21 22:56 Dose: 5 mg Documented by: Allergies Allergies Allergy/AdvReac Type Severity Reaction Status Date / Time buspirone [From BuSpar] Allergy Swelling Verified 07/23/21 19:02 chlorpromazine Allergy Anaphylaxis Verified 07/23/21 19:02 [From Thorazine] lamotrigine [From Lamictal] Allergy Rash Verified 07/23/21 19:02 Sulfa (Sulfonamide Allergy Rash Verified 07/23/21 19:02 Antibiotics) linaclotide [From Linzess] AdvReac Abdominal Verified 07/23/21 19:02 Pain quetiapine [From Seroquel] AdvReac bad side Verified 07/23/21 19:02 effects' topiramate AdvReac Fogginess Verified 07/23/21 19:02 ziprasidone [From Geodon] AdvReac psychosis Verified 07/23/21 19:02 Assessment & Plan Assessment & Plan (1) Major depressive disorder, recurrent, moderate: Status: Acute Code(s): F33.1 - Major depressive disorder, recurrent, moderate (2) PTSD (post-traumatic stress disorder): Status: Acute Code(s): F43.10 - Post-traumatic stress disorder, unspecified (3) Anorexia nervosa, restricting type: Status: Acute Code(s): F50.01 - Anorexia nervosa, restricting type (4) Cocaine use disorder: Status: Acute Code(s): F14.10 - Cocaine abuse, uncomplicated (5) Ileostomy present: Status: Acute Code(s): Z93.2 - Ileostomy status Plan Zuleyma is a 35 y.o. Female who carries a dx of PTSD, anorexia nervosa, polysubstance abuse, and MDD, recurrent episode. She presented to [facility] on 09/21/21 reporting passive SI, using crack cocaine in an attempt to lose weight. Pt has multiple co-morbid medical concerns including ostomy bag, urinary rete ntion, and chronic pain. Has long hx of IPLOC, PHP, and detox. Has OP psych services, psychiatrist was Dr. Anand. Patient reports that she relapsed about 3 days after her last discharge. She said that IOP was helpful and she started getting open there and was able to get sober with the help of her boyfriend. She reports she has been sober for the past week prior to this admission however she has been restricting her food significantly and cannot seem to get herself to eat again. She reports depression and intermittent SI though she does not have a plan or intent. Patient says she does fully wants help. She does not feel she can get herself towards healthier eating without structure of inpatient setting. 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 Patient agrees. 12/02 started to stabilize; eating more healthy; family meeting with long-term boyfriend; It is report writer's opinion that patient requires the structure of inpatient admission in order to stabilize and regain healthy eating habits; otherwise will rapidly declined. Patient also needs aftercare set up in order to remain sober 12/03 mood is better, no SI; continuing to work through feeling triggered at times, and being hopeful about eating more healthy and staying sober. Plans to go to IOP on discharge IMPRESSION: CV Q 15 minute checks DC prazosin: Not effective continue clonidine 0.1 mg q.h.s. for insomnia/nightmares continue trazodone to 125 mg for insomnia (doses at 200 mg lead to problematic nightmares) continue Latuda to 60mg; pt says stability not lasting once off unit (increased from 40) I spent minutes with the patient and/or on the patient floor today, greater than?50% of which was spent counseling/coordinating care. Patient educated on: diagnosis, medication risk/benefits, substance abuse and therapeutic strategies Informed Consent: understands Reason for contiued inpatient stay Substantial Risk for: rapid decompensation
[2021-12-03 22:45] VITALS: BP 108/73; PULSE 84; RESP 16; TEMP 37.3
[2021-12-03] MEDS: Lurasidone HCl 20 MG TABLET 60 MG PO (22:46)
[2021-12-03] MEDS: Zolpidem Tartrate 5 MG TABLET PO (22:47)
[2021-12-03] MEDS: cloNIDine HCL 0.1 MG TABLET PO (22:48)
[2021-12-03] MEDS: clonazePAM 1 MG TABLET 2 MG PO (22:48)
[2021-12-03] MEDS: diphenhydrAMINE HCL 25 MG TABLET PO (22:49)
[2021-12-04] MEDS: Bethanechol Chloride 25 MG TABLET PO ×3 (06:50→16:32)
[2021-12-04] MEDS: Gabapentin 400 MG CAPSULE 800 MG PO ×2 (09:16→22:52)
[2021-12-04] MEDS: FLUoxetine HCl 20 MG CAPSULE PO (09:16)
[2021-12-04] MEDS: DULoxetine HCl 30 MG CAPSULE.DR 90 MG PO (09:16)
[2021-12-04 09:21] VITALS: BP 108/54; PULSE 76; RESP 18; TEMP 36.8; O2SAT 97
--- NOTE | 2021-12-04 13:16 | HO.PSYCHPN ---
Subjective Subjective Date of Service: 12/04/21 Reason For Visit: depression,SI Interim History: Mood improved in no SI. Patient today deleted contacts in her phone that could be used for per curing drugs. She said it was scary but also felt good. She is more in touch with the ways she tries to rationalize keeping doorways open for future drug use and is being open about these instances. Patient the still struggles with sleep but sleep is better. She is continuing to eating a more healthy way. Plans for IOP next week with early discharge Mental Status Exam Mental Status Exam Narrative: A&O. Pt is frail appearing, in casual attire. Good eye contact, attentive. No Tics or Tremors. No abnormal involuntary movements. Calm, cooperative, engaged; mood is better; affect, calm, congruent Speech is Non-pressured , spontaneous with regular rate and rhythm, normal volume and prosody. No latency or dysarthria.? Denies SI/SIB/HI upon inquiry. Denies A/VH or delusional thought content. Thought process organized, linear and goal oriented.? Thought content call on continued recovery, working on sobriety, thinking positively about eating, fighting off negative self-deprecating thoughts.? Insight/ Judgment impaired but improved and adequate. Diagnostics Vital Signs (24Hr): Vital Signs - 24 hr 12/03/21 22:45 12/04/21 09:21 Temperature 99.1 F 98.2 F Pulse Rate 84 76 Respiratory Rate 16 18 Blood Pressure 108/73 108/54 L Pulse Oximetry 97 BMI result Body Mass Index 16.9 Labs Results: 11/23/21 13:23 11/23/21 13:23 Medications Medications Current Medications Acetaminophen (Acetaminophen 325 Mg Tablet) 650 mg PO Q6H PRN PRN Reason: HEADACHE/MILD PAIN Last Admin: 11/27/21 16:48 Dose: 650 mg Documented by: Al Hydroxide/Mg Hydroxide (Magnesium Hydrox/Alum Hydrox 30 Ml Oral.Susp) 30 ml PO Q6H PRN PRN Reason: Heartburn/Nausea Benztropine Mesylate (Benztropine Mesylate 1 Mg Tablet) 1 mg PO BID PRN PRN Reason: EPS/dystonia Bethanechol Chloride (Bethanechol Chloride 25 Mg Tablet) 25 mg PO TIDAC [facility] Last Admin: 12/04/21 11:31 Dose: 25 mg Documented by: Clonidine HCl (Clonidine Hcl 0.1 Mg Tablet) 0.1 mg PO TID PRN; Protocol PRN Reason: for daytime anxiety and bedtime hyperarousal Last Admin: 11/25/21 20:59 Dose: 0.1 mg Documented by: Clonidine HCl (Clonidine Hcl 0.1 Mg Tablet) 0.1 mg PO BEDTIME [facility]; Protocol Last Admin: 12/03/21 22:48 Dose: 0.1 mg Documented by: Diphenhydramine HCl (Diphenhydramine Hcl 25 Mg Tablet) 25 mg PO BEDTIME [facility] Last Admin: 12/03/21 22:49 Dose: 25 mg Documented by: Duloxetine HCl (Duloxetine Hcl 30 Mg Capsule.Dr) 90 mg PO DAILY [facility] Last Admin: 12/04/21 09:16 Dose: 90 mg Documented by: Fluoxetine HCl (Fluoxetine Hcl 20 Mg Capsule) 20 mg PO DAILY [facility] Last Admin: 12/04/21 09:16 Dose: 20 mg Documented by: Gabapentin (Gabapentin 400 Mg Capsule) 400 mg PO DAILY PRN PRN Reason: BREAKTHROUGH NEUROPATHIC PAIN Gabapentin (Gabapentin 400 Mg Capsule) 800 mg PO BID [facility] Last Admin: 12/04/21 09:16 Dose: 800 mg Documented by: Hydroxyzine HCl (Hydroxyzine Hcl 25 Mg Tablet) 25 mg PO Q6H PRN PRN Reason: Anxiety Loperamide HCl (Loperamide Hcl 2 Mg Capsule) 4 mg PO Q4H PRN PRN Reason: Diarrhea Lurasidone HCl (Lurasidone Hcl 20 Mg Tablet) 60 mg PO BEDTIME [facility] Last Admin: 12/03/21 22:46 Dose: 60 mg Documented by: Magnesium Hydroxide (Milk Of Magnesia 30 Ml Oral.Susp) 30 ml PO DAILY PRN PRN Reason: Constipation Metoclopramide HCl (Metoclopramide Hcl 5 Mg Tablet) 5 mg PO TIDAC PRN PRN Reason: slow gut motility Ondansetron HCl (Ondansetron Odt 4 Mg Tab.Rapdis) 4 mg TRANSLINGU Q6H PRN PRN Reason: nausea/vomiting Last Admin: 12/01/21 16:36 Dose: 4 mg Documented by: Trazodone HCl 100 mg/ (Trazodone HCl 25 mg) 125 mg PO BEDTIME [facility] Last Admin: 12/03/21 22:47 Dose: 125 mg Documented by: Allergies Allergies Allergy/AdvReac Type Severity Reaction Status Date / Time buspirone [From BuSpar] Allergy Swelling Verified 07/23/21 19:02 chlorpromazine Allergy Anaphylaxis Verified 07/23/21 19:02 [From Thorazine] lamotrigine [From Lamictal] Allergy Rash Verified 07/23/21 19:02 Sulfa (Sulfonamide Allergy Rash Verified 07/23/21 19:02 Antibiotics) linaclotide [From Linzess] AdvReac Abdominal Verified 07/23/21 19:02 Pain quetiapine [From Seroquel] AdvReac bad side Verified 07/23/21 19:02 effects' topiramate AdvReac Fogginess Verified 07/23/21 19:02 ziprasidone [From Geodon] AdvReac psychosis Verified 07/23/21 19:02 Assessment & Plan Assessment & Plan (1) Major depressive disorder, recurrent, moderate: Status: Acute Code(s): F33.1 - Major depressive disorder, recurrent, moderate (2) PTSD (post-traumatic stress disorder): Status: Acute Code(s): F43.10 - Post-traumatic stress disorder, unspecified (3) Anorexia nervosa, restricting type: Status: Acute Code(s): F50.01 - Anorexia nervosa, restricting type (4) Cocaine use disorder: Status: Acute Code(s): F14.10 - Cocaine abuse, uncomplicated (5) Ileostomy present: Status: Acute Code(s): Z93.2 - Ileostomy status Plan Zuleyma is a 35 y.o. Female who carries a dx of PTSD, anorexia nervosa, polysubstance abuse, and MDD, recurrent episode. She presented to [facility] on 09/21/21 reporting passive SI, using crack cocaine in an attempt to lose weight. Pt has multiple co-morbid medical concerns including ostomy bag, urinary retention, and chronic pain. Has long hx of IPLOC, PHP, and detox. Has OP psych services, psychiatrist was Dr. Anand. Patient reports that she relapsed about 3 days after her last discharge. She said that IOP was helpful and she started getting open there and was able to get sober with the help of her boyfriend. She reports she has been sober for the past week prior to this admission however she has been restricting her food significantly and cannot seem to get herself to eat again. She reports depression and intermittent SI though she does not have a plan or intent. Patient says she does fully wants help. She does not feel she can get herself towards healthier eating without structure of inpatient setting. 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 Patient agrees. 12/02 started to stabilize; eating more healthy; family meeting with long-term boyfriend; It is investment underwriter's opinion that patient requires the structure of inpatient admission in order to stabilize and regain healthy eating habits; otherwise will rapidly declined. Patient also needs aftercare set up in order to remain sober 12/03 mood is better, no SI; continuing to work through feeling triggered at times, and being hopeful about eating more healthy and staying sober. Plans to go to IOP on discharge 12/04 patient is making efforts to increase her stability and sobriety post discharge; amadou has deleted problematic phone numbers and is planning to attend IOP as well as zoom meetings for both NA and [facility]. She agrees she needs something phillip to a sponsor and will look for this at her groups. IMPRESSION: CV Q 15 minute checks DC prazosin: Not effective continue clonidine 0.1 mg q.h.s. for insomnia/nightmares continue trazodone to 125 mg for insomnia (doses at 200 mg lead to problematic nightmares) continue Latuda to 60mg; pt says stability not lasting once off unit (increased from 40) I spent minutes with the patient and/or on the patient floor today, greater than?50% of which was spent counseling/coordinating care. Patient educated on: diagnosis, substance abuse and therapeutic strategies Informed Consent: understands Reason for contiued inpatient stay Substantial Risk for: stable for discharge
[2021-12-04] MEDS: Lurasidone HCl 20 MG TABLET 60 MG PO (22:51)
[2021-12-04] MEDS: cloNIDine HCL 0.1 MG TABLET PO (22:53)
[2021-12-04] MEDS: diphenhydrAMINE HCL 25 MG TABLET PO (22:56)
[2021-12-04] MEDS: clonazePAM 1 MG TABLET 2 MG PO (23:31)
[2021-12-04] MEDS: Zolpidem Tartrate 5 MG TABLET PO (23:31)
[2021-12-05] MEDS: DULoxetine HCl 30 MG CAPSULE.DR 90 MG PO (09:25)
[2021-12-05] MEDS: FLUoxetine HCl 20 MG CAPSULE PO (09:25)
[2021-12-05] MEDS: Bethanechol Chloride 25 MG TABLET PO ×3 (09:26→16:37)
[2021-12-05] MEDS: Gabapentin 400 MG CAPSULE 800 MG PO ×2 (09:26→23:05)
[2021-12-05 09:28] VITALS: BP 113/67; PULSE 101; RESP 18; TEMP 36.7; O2SAT 98
--- NOTE | 2021-12-05 16:45 | P.PNPSI_ITS ---
Subjective Subjective Date of Service: 12/05/21 Reason For Visit: depression,SI Interim History: No current questions or concerns about treatment. Planning discharge early next week. Medication Compliance: Yes Side effects from medications: No Attending Groups: Yes Review of Systems Acute medical concerns: No Medical Review of Systems: unchanged Mental Status Exam Mental Status Exam Patient Appearance: Appropriate Patient Orientation: Person, Place, Time and Situation Level of Consciousness: Alert Patient Behavior: Appropriate, Talkative, Cooperative and Good Eye Contact Mood Description: Apprehensive Affect Description: Apprehensive Patient Cognition Impaired: No Ability to Follow Directions: Good Speech Pattern: Spontaneous Speech Memory Description: Intact Hallucinations: None Delusions: Not Present Thought Process: Intact Thought Content: positive for Intact Depressive Symptoms: Increased Anxiety Judgement: Good Diagnostics Vital Signs (24Hr): Vital Signs - 24 hr 12/05/21 09:28 Temperature 98.0 F Pulse Rate 101 H Respiratory Rate 18 Blood Pressure 113/67 Pulse Oximetry 98 BMI result Body Mass Index 16.9 Labs Results: 11/23/21 13:23 11/23/21 13:23 Medications Medications Current Medications Acetaminophen (Acetaminophen 325 Mg Tablet) 650 mg PO Q6H PRN PRN Reason: HEADACHE/MILD PAIN Last Admin: 11/27/21 16:48 Dose: 650 mg Documented by: Al Hydroxide/Mg Hydroxide (Magnesium Hydrox/Alum Hydrox 30 Ml Oral.Susp) 30 ml PO Q6H PRN PRN Reason: Heartburn/Nausea Benztropine Mesylate (Benztropine Mesylate 1 Mg Tablet) 1 mg PO BID PRN PRN Reason: EPS/dystonia Bethanechol Chloride (Bethanechol Chloride 25 Mg Tablet) 25 mg PO TIDAC AMELIA Last Admin: 12/05/21 16:37 Dose: 25 mg Documented by: Clonazepam (Clonazepam 1 Mg Tablet) 2 mg PO BEDTIME [facility] Last Admin: 12/04/21 23:31 Dose: 2 mg Documented by: Clonidine HCl (Clonidine Hcl 0.1 Mg Tablet) 0.1 mg PO TID PRN; Protocol PRN Reason: for daytime anxiety and bedtime hyperarousal Last Admin: 11/25/21 20:59 Dose: 0.1 mg Documented by: Clonidine HCl (Clonidine Hcl 0.1 Mg Tablet) 0.1 mg PO BEDTIME [facility]ELIA; Protocol Last Admin: 12/04/21 22:53 Dose: 0.1 mg Documented by: Diphenhydramine HCl (Diphenhydramine Hcl 25 Mg Tablet) 25 mg PO BEDTIME [facility] Last Admin: 12/04/21 22:56 Dose: 25 mg Documented by: Duloxetine HCl (Duloxetine Hcl 30 Mg Capsule.Dr) 90 mg PO DAILY [facility] Last Admin: 12/05/21 09:25 Dose: 90 mg Documented by: Fluoxetine HCl (Fluoxetine Hcl 20 Mg Capsule) 20 mg PO DAILY [facility] Last Admin: 12/05/21 09:25 Dose: 20 mg Documented by: Gabapentin (Gabapentin 400 Mg Capsule) 400 mg PO DAILY PRN PRN Reason: BREAKTHROUGH NEUROPATHIC PAIN Gabapentin (Gabapentin 400 Mg Capsule) 800 mg PO BID [facility] Last Admin: 12/05/21 09:26 Dose: 800 mg Documented by: Hydroxyzine HCl (Hydroxyzine Hcl 25 Mg Tablet) 25 mg PO Q6H PRN PRN Reason: Anxiety Loperamide HCl (Loperamide Hcl 2 Mg Capsule) 4 mg PO Q4H PRN PRN Reason: Diarrhea Lurasidone HCl (Lurasidone Hcl 20 Mg Tablet) 60 mg PO BEDTIME [facility] Last Admin: 12/04/21 22:51 Dose: 60 mg Documented by: Magnesium Hydroxide (Milk Of Magnesia 30 Ml Oral.Susp) 30 ml PO DAILY PRN PRN Reason: Constipation Metoclopramide HCl (Metoclopramide Hcl 5 Mg Tablet) 5 mg PO TIDAC PRN PRN Reason: slow gut motility Ondansetron HCl (Ondansetron Odt 4 Mg Tab.Rapdis) 4 mg TRANSLINGU Q6H PRN PRN Reason: nausea/vomiting Last Admin: 12/01/21 16:36 Dose: 4 mg Documented by: Trazodone HCl 100 mg/ (Trazodone HCl 25 mg) 125 mg PO BEDTIME [facility] Last Admin: 12/04/21 22:55 Dose: 125 mg Documented by: Zolpidem Tartrate (Zolpidem Tartrate 5 Mg Tablet) 5 mg PO BEDTIME [facility] Last Admin: 12/04/21 23:31 Dose: 5 mg Documented by: Allergies Allergies Allergy/AdvReac Type Severity Reaction Status Date / Time buspirone [From BuSpar] Allergy Swelling Verified 07/23/21 19:02 chlorpromazine Allergy Anaphylaxis Verified 07/23/21 19:02 [From Thorazine] lamotrigine [From Lamictal] Allergy Rash Verified 07/23/21 19:02 Sulfa (Sulfonamide Allergy Rash Verified 07/23/21 19:02 Antibiotics) linaclotide [From Linzess] AdvReac Abdominal Verified 07/23/21 19:02 Pain quetiapine [From Seroquel] AdvReac bad side Verified 07/23/21 19:02 effects' topiramate AdvReac Fogginess Verified 07/23/21 19:02 ziprasidone [From Geodon] AdvReac psychosis Verified 07/23/21 19:02 Assessment & Plan Assessment & Plan (1) Major depressive disorder, recurrent, moderate: Status: Acute Code(s): F33.1 - Major depressive disorder, recurrent, moderate (2) PTSD (post-traumatic stress disorder): Status: Acute Code(s): F43.10 - Post-traumatic stress disorder, unspecified (3) Anorexia nervosa, restricting type: Status: Acute Code(s): F50.01 - Anorexia nervosa, restricting type (4) Cocaine use disorder: Status: Acute Code(s): F14.10 - Cocaine abuse, uncomplicated (5) Ileostomy present: Status: Acute Code(s): Z93.2 - Ileostomy status Plan Zuleyma is a 35 y.o. Female who carries a dx of PTSD, anorexia nervosa, polysubstance abuse, and MDD, recurrent episode. She presented to [facility] on reporting passive SI, using crack cocaine in an attempt to lose weight. Pt has multiple co-morbid medical concerns including ostomy bag, urinary retention, and chronic pain. Has long hx of IPLOC, PHP, and detox. Has OP psych services, psychiatrist was Dr. Anand. Patient reports that she relapsed about 3 days after her last discharge. She said that IOP was helpful and she started getting open there and was able to get sober with the help of her boyfriend. She reports she has been sober for the past week prior to this admission however she has been restricting her food significantly and cannot seem to get herself to eat again. She reports depression and intermittent SI though she does not have a plan or intent. Patient says she does fully wants help. She does not feel she can get herself towards healthier eating without structure of inpatient setting. 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 Patient agrees. 12/02 started to stabilize; eating more healthy; family meeting with long-term boyfriend; It is fiction and nonfiction prose writer's opinion that patient requires the structure of inpatient admission in order to stabilize and regain healthy eating habits; otherwise will rapidly declined. Patient also needs aftercare set up in order to remain sober 12/03 mood is better, no SI; continuing to work through feeling triggered at times, and being hopeful about eating more healthy and staying sober. Plans to go to IOP on discharge 12/04 patient is making efforts to increase her stability and sobriety post discharge; amadou has deleted problematic phone numbers and is planning to attend IOP as well as zoom meetings for both NA and [facility]. She agrees she needs something phillip to a sponsor and will look for this at her groups. 12/05/21: Coverage- continue current plan of care. IMPRESSION: CV Q 15 minute checks DC prazosin: Not effective continue clonidine 0.1 mg q.h.s. for insomnia/nightmares continue trazodone to 125 mg for insomnia (doses at 200 mg lead to problematic nightmares) continue Latuda to 60mg; pt says stability not lasting once off unit (increased from 40) I spent minutes with the patient and/or on the patient floor today, greater than?50% of which was spent counseling/coordinating care. Patient educated on: therapeutic strategies Informed Consent: further education needed Reason for contiued inpatient stay Substantial Risk for: inability to function and rapid decompensation
[2021-12-05] MEDS: clonazePAM 1 MG TABLET 2 MG PO (23:04)
[2021-12-05] MEDS: Zolpidem Tartrate 5 MG TABLET PO (23:04)
[2021-12-05] MEDS: diphenhydrAMINE HCL 25 MG TABLET PO (23:04)
[2021-12-05] MEDS: Lurasidone HCl 20 MG TABLET 60 MG PO (23:04)
[2021-12-05] MEDS: cloNIDine HCL 0.1 MG TABLET PO (23:05)
[2021-12-05 23:14] VITALS: BP 94/62; PULSE 76; RESP 16; O2SAT 100
[2021-12-06 06:47] VITALS: BP 95/49; PULSE 57; RESP 16; TEMP 36.8; O2SAT 96
[2021-12-06] MEDS: DULoxetine HCl 30 MG CAPSULE.DR 90 MG PO (09:41)
[2021-12-06] MEDS: Bethanechol Chloride 25 MG TABLET PO ×3 (09:41→16:35)
[2021-12-06] MEDS: FLUoxetine HCl 20 MG CAPSULE PO (09:41)
[2021-12-06] MEDS: Gabapentin 400 MG CAPSULE 800 MG PO ×2 (09:41→22:46)
--- NOTE | 2021-12-06 10:47 | P.PNPSI_ITS ---
Subjective Subjective Date of Service: 12/06/21 Reason For Visit: depression,SI Interim History: Planning discharge for early this week. Denies questions, concerns at this time. Interactive with peers in milieu. Medication Compliance: Yes Side effects from medications: No Attending Groups: Yes Review of Systems Acute medical concerns: No Medical Review of Systems: unchanged Mental Status Exam Mental Status Exam Patient Appearance: Appropriate Patient Orientation: Person, Place, Time and Situation Level of Consciousness: Alert Patient Behavior: Appropriate, Talkative, Cooperative and Good Eye Contact Mood Description: Apprehensive Affect Description: Apprehensive Patient Cognition Impaired: No Ability to Follow Directions: Good Speech Pattern: Spontaneous Speech Memory Description: Intact Hallucinations: None Delusions: Not Present Thought Process: Intact Thought Content: positive for Intact Depressive Symptoms: Increased Anxiety Judgement: Good Diagnostics Vital Signs (24Hr): Vital Signs - 24 hr 12/05/21 23:14 12/06/21 06:47 Temperature 98.2 F Pulse Rate 76 57 Respiratory Rate 16 16 Blood Pressure 94/62 95/49 L Pulse Oximetry 100 96 BMI result Body Mass Index 16.9 Labs Results: 11/23/21 13:23 11/23/21 13:23 Medications Medications Current Medications Acetaminophen (Acetaminophen 325 Mg Tablet) 650 mg PO Q6H PRN PRN Reason: HEADACHE/MILD PAIN Last Admin: 11/27/21 16:48 Dose: 650 mg Documented by: Al Hydroxide/Mg Hydroxide (Magnesium Hydrox/Alum Hydrox 30 Ml Oral.Susp) 30 ml PO Q6H PRN PRN Reason: Heartburn/Nausea Benztropine Mesylate (Benztropine Mesylate 1 Mg Tablet) 1 mg PO BID PRN PRN Reason: EPS/dystonia Bethanechol Chloride (Bethanechol Chloride 25 Mg Tablet) 25 mg PO TIDAC AMELIA Last Admin: 12/06/21 09:41 Dose: 25 mg Documented by: Clonazepam (Clonazepam 1 Mg Tablet) 2 mg PO BEDTIME [facility] Last Admin: 12/05/21 23:04 Dose: 2 mg Documented by: Clonidine HCl (Clonidine Hcl 0.1 Mg Tablet) 0.1 mg PO TID PRN; Protocol PRN Reason: for daytime anxiety and bedtime hyperarousal Last Admin: 11/25/21 20:59 Dose: 0.1 mg Documented by: Clonidine HCl (Clonidine Hcl 0.1 Mg Tablet) 0.1 mg PO BEDTIME AMELIA; Protocol Last Admin: 12/05/21 23:05 Dose: 0.1 mg Documented by: Diphenhydramine HCl (Diphenhydramine Hcl 25 Mg Tablet) 25 mg PO BEDTIME [facility] Last Admin: 12/05/21 23:04 Dose: 25 mg Documented by: Duloxetine HCl (Duloxetine Hcl 30 Mg Capsule.Dr) 90 mg PO DAILY [facility] Last Admin: 12/06/21 09:41 Dose: 90 mg Documented by: Fluoxetine HCl (Fluoxetine Hcl 20 Mg Capsule) 20 mg PO DAILY [facility] Last Admin: 12/06/21 09:41 Dose: 20 mg Documented by: Gabapentin (Gabapentin 400 Mg Capsule) 400 mg PO DAILY PRN PRN Reason: BREAKTHROUGH NEUROPATHIC PAIN Gabapentin (Gabapentin 400 Mg Capsule) 800 mg PO BID [facility] Last Admin: 12/06/21 09:41 Dose: 800 mg Documented by: Hydroxyzine HCl (Hydroxyzine Hcl 25 Mg Tablet) 25 mg PO Q6H PRN PRN Reason: Anxiety Loperamide HCl (Loperamide Hcl 2 Mg Capsule) 4 mg PO Q4H PRN PRN Reason: Diarrhea Lurasidone HCl (Lurasidone Hcl 20 Mg Tablet) 60 mg PO BEDTIME [facility] Last Admin: 12/05/21 23:04 Dose: 60 mg Documented by: Magnesium Hydroxide (Milk Of Magnesia 30 Ml Oral.Susp) 30 ml PO DAILY PRN PRN Reason: Constipation Metoclopramide HCl (Metoclopramide Hcl 5 Mg Tablet) 5 mg PO TIDAC PRN PRN Reason: slow gut motility Ondansetron HCl (Ondansetron Odt 4 Mg Tab.Rapdis) 4 mg TRANSLINGU Q6H PRN PRN Reason: nausea/vomiting Last Admin: 12/01/21 16:36 Dose: 4 mg Documented by: Trazodone HCl 100 mg/ (Trazodone HCl 25 mg) 125 mg PO BEDTIME [facility] Last Admin: 12/05/21 23:04 Dose: 125 mg Documented by: Zolpidem Tartrate (Zolpidem Tartrate 5 Mg Tablet) 5 mg PO BEDTIME [facility] Last Admin: 12/05/21 23:04 Dose: 5 mg Documented by: Allergies Allergies Allergy/AdvReac Type Severity Reaction Status Date / Time buspirone [From BuSpar] Allergy Swelling Verified 07/23/21 19:02 chlorpromazine Allergy Anaphylaxis Verified 07/23/21 19:02 [From Thorazine] lamotrigine [From Lamictal] Allergy Rash Verified 07/23/21 19:02 Sulfa (Sulfonamide Allergy Rash Verified 07/23/21 19:02 Antibiotics) linaclotide [From Linzess] AdvReac Abdominal Verified 07/23/21 19:02 Pain quetiapine [From Seroquel] AdvReac bad side Verified 07/23/21 19:02 effects' topiramate AdvReac Fogginess Verified 07/23/21 19:02 ziprasidone [From Geodon] AdvReac psychosis Verified 07/23/21 19:02 Assessment & Plan Assessment & Plan (1) Major depressive disorder, recurrent, moderate: Status: Acute Code(s): F33.1 - Major depressive disorder, recurrent, moderate (2) PTSD (post-traumatic stress disorder): Status: Acute Code(s): F43.10 - Post-traumatic stress disorder, unspecified (3) Anorexia nervosa, restricting type: Status: Acute Code(s): F50.01 - Anorexia nervosa, restricting type (4) Cocaine use disorder: Status: Acute Code(s): F14.10 - Cocaine abuse, uncomplicated (5) Ileostomy present: Status: Acute Code(s): Z93.2 - Ileostomy status Plan Zuleyma is a 35 y.o. Female who carries a dx of PTSD, anorexia nervosa, polysubstance abuse, and MDD, recurrent episode. She presented to [facility] [place] reporting passive SI, using crack cocaine in an attempt to lose weight. Pt has multiple co-morbid medical concerns including ostomy bag, urinary retention, and chronic pain. Has long hx of IPLOC, PHP, and detox. Has OP psych services, psychiatrist was Dr. Anand. Patient reports that she relapsed about 3 days after her last discharge. She said that IOP was helpful and she started getting open there and was able to get sober with the help of her boyfriend. She reports she has been sober for the past week prior to this admission however she has been restricting her food significantly and cannot seem to get herself to eat again. She reports depression and intermittent SI though she does not have a plan or intent. Patient says she does fully wants help. She does not feel she can get herself towards healthier eating without structure of inpatient setting. 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 Patient agrees. 12/02 started to stabilize; eating more healthy; family meeting with long-term boyfriend; It is blog writer's opinion that patient requires the structure of inpatient admission in order to stabilize and regain healthy eating habits; otherwise will rapidly declined. Patient also needs aftercare set up in order to remain sober 12/03 mood is better, no SI; continuing to work through feeling triggered at time s, and being hopeful about eating more healthy and staying sober. Plans to go to IOP on discharge 12/04 patient is making efforts to increase her stability and sobriety post discharge; amadou has deleted problematic phone numbers and is planning to attend IOP as well as zoom meetings for both NA and [facility]. She agrees she needs something phillip to a sponsor and will look for this at her groups. 12/06/21- Continue curent plan IMPRESSION: CV Q 15 minute checks DC prazosin: Not effective continue clonidine 0.1 mg q.h.s. for insomnia/nightmares continue trazodone to 125 mg for insomnia (doses at 200 mg lead to problematic nightmares) continue Latuda to 60mg; pt says stability not lasting once off unit (increased from 40) I spent minutes with the patient and/or on the patient floor today, greater than?50% of which was spent counseling/coordinating care. Patient educated on: therapeutic strategies Informed Consent: further education needed Reason for contiued inpatient stay Substantial Risk for: inability to function and rapid decompensation
[2021-12-06 20:26] VITALS: BP 104/71; PULSE 68; RESP 16; TEMP 36.4; O2SAT 98
[2021-12-06 22:21] VITALS: BP 132/75; PULSE 79; O2SAT 98
[2021-12-06] MEDS: Lurasidone HCl 20 MG TABLET 60 MG PO (22:46)
[2021-12-06] MEDS: cloNIDine HCL 0.1 MG TABLET PO (22:47)
[2021-12-06] MEDS: clonazePAM 1 MG TABLET 2 MG PO (22:47)
[2021-12-06] MEDS: diphenhydrAMINE HCL 25 MG TABLET PO (22:48)
[2021-12-06] MEDS: Zolpidem Tartrate 5 MG TABLET PO (22:49)
[2021-12-07 06:58] VITALS: BP 98/54; PULSE 62; RESP 16; TEMP 36.6; O2SAT 98
[2021-12-07] MEDS: DULoxetine HCl 30 MG CAPSULE.DR 90 MG PO (08:35)
[2021-12-07] MEDS: FLUoxetine HCl 20 MG CAPSULE PO (08:35)
[2021-12-07] MEDS: Bethanechol Chloride 25 MG TABLET PO ×2 (08:36→11:26)
[2021-12-07] MEDS: Gabapentin 400 MG CAPSULE 800 MG PO (08:36)
--- NOTE | 2021-12-07 09:41 | PM.PSYDC ---
DS: Providers Provider Date of Service: 12/07/21 Date of admission: 11/26/21 17:53 Date of discharge: 12/07/21 Primary care physician: Caroline Thapa MD Attending physician on admission: Chirag Alcazar Attending physician on discharge: Chirag Alcazar DS: Diagnosis Discharge Diagnosis (1) Major depressive disorder, recurrent, moderate: Status: Acute (2) PTSD (post-traumatic stress disorder): Status: Acute (3) Anorexia nervosa, restricting type: Status: Acute (4) Cocaine use disorder: Status: Acute (5) Ileostomy present: Status: Acute DS: Medications Discharge Medications Home Medications: Home Medications Medication Instructions Recorded Confirmed acetaminophen 325 mg tablet 650 mg PO Q6H PRN 08/02/21 11/23/21 Previous Rx's Medication Instructions Recorded benztropine 1 mg tablet 1 mg PO BID PRN 30 Days #30 tab 12/07/21 bethanechol chloride 25 mg tablet 25 mg PO TIDWM 30 Days #90 tab 12/07/21 clonazepam 2 mg tablet (Klonopin) 2 mg PO BEDTIME PRN 15 Days #30 tab 12/07/21 clonidine HCl 0.1 mg tablet 0.1 mg PO TID PRN 30 Days #90 tab 12/07/21 diphenhydramine HCl 25 mg capsule 25 mg PO BEDTIME 30 Days #30 cap 12/07/21 (Wal-Sleep Z) duloxetine 30 mg capsule,delayed 90 mg PO DAILY 30 Days #90 cap 12/07/21 release fluoxetine 20 mg capsule 20 mg PO DAILY 30 Days #30 cap 12/07/21 gabapentin 800 mg tablet 800 mg PO BID 30 Days #60 tab 12/07/21 loperamide 2 mg capsule 4 mg PO Q4H PRN 30 Days #30 cap 12/07/21 lurasidone 40 mg tablet (Latuda) 40 mg PO DAILY 7 Days #7 tab 12/07/21 lurasidone 60 mg tablet 60 mg PO DAILY 30 Days #30 tab 12/07/21 metoclopramide HCl 5 mg tablet 5 mg PO TIDAC PRN 30 Days #90 tab 12/07/21 trazodone 100 mg tablet 100 mg PO BEDTIME PRN 30 Days #30 12/07/21 tab zolpidem 5 mg tablet 5 mg PO BEDTIME 15 Days #15 tab 12/07/21 Mental Status Exam Mental Status Exam Narrative: Patient Appearance:?Appropriate, well groomed Patient Orientation:?Person, Place, Time and Situation Level of Consciousness:?Alert Patient Behavior:?Appropriate, Cooperative and Good Eye Contact Mood Description:?anxious, hopeful Affect Description:?congruent Patient Cognition Impaired:?No Ability to Follow Directions:?Good Speech Pattern:?Spontaneous Speech Memory Description:?Intact Hallucinations:?None Delusions:?Not Present Thought Process:?Intact, linear, organized Thought Content:?on staying sober, pursuing treatment; no SI/HI Judgment/insight:?fair to good DS: Summary Hospital Course Hospital Course: HPI Zuleyma is a 35 y.o. Female who carries a dx of PTSD, anorexia nervosa, polysubstance abuse, and MDD, recurrent episode. She presented to [facility] ED on 09/21/21 reporting passive SI, using crack cocaine in an attempt to lose weight. Pt has multiple co-morbid medical concerns including ostomy bag, urinary retention, and chronic pain. Has long hx of IPLOC, PHP, and detox. Has OP psych services, psychiatrist was Dr. Anand. Patient reports that she relapsed about 3 days after her last discharge.? She said that IOP was helpful and she started getting open there and was able to get sober with the help of her boyfriend.? She reports she has been sober for the past week prior to this admission however she has been restricting her food significantly and cannot seem to get herself to eat again.? She reports depression and intermittent SI though she does not have a plan or intent.? Patient says she does fully wants help.? She does not feel she can get herself towards healthier eating without structure of inpatient setting.? 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 Patient agrees. Hospital course: Patient was depressed on admission but SI had resolved. She was continued on her home medications and the only change made was increasing Latuda To 60 mg (PA pending). Patient began to eat more healthy. Had a family meeting with her long-term, supportive boyfriend Who patient has now Made fully aware the extent of her substance abuse and who is on board with helping her pursue her sobriety goals. Patient remained without any SI and depression abated. She was invested in treatment, attending groups, forthcoming in 1 on 1 sessions, and making plans to stay sober when she leaves which included deleting all problematic phone numbers from her phone, engaging in IOP and starting to go to [facility] From which she will pursue a sponsor. Patient at 1st had trouble sleeping but trazodone was increased by 25 mg and She slept better; she does not think she needs the increase when at home. Patient remained in good mood, without SI, eating in a healthy way and having better perspective on eating disorder and optimistic about staying sober. Patient felt ready for discharge and commercial loan underwriter and team agreed patient was appropriate to continue treatment as an outpatient. While patient has a past hx where for several years she was sobrer and had relatively healthy eating habits, however, over the past year she has had significant struggles and remains at risk for future decompensation, relapse or developing worsening eating disorder symptoms; this was discussed and patient understands that these struggles will likely remain for sometime to varying degrees of intensity. However,? these are chronic issues of which patient has been dealing with for years and both she and commercial loan underwriter agree that progress requires continued, consistent, long-term outpatient treatment of which patient is engaged. She remains invested in treatment and plans to continue working on her issues with her outpt therapist in the community with addition of IOP and [facility]. Also, One significant change is that she has now made her life partner fully aware of the extent of her struggles with substance abuse, something she had been keeping from.? Patient is not in imminent risk for harm to self or others and her request for discharge is appropriate.? Patient will return to live at her home with her supportive partner.? Sent a script for Latuda 40 mg for 1 week to cover while PA is pending for increase in Latuda to 60 mg. Time spent discussing smoking cessation with patient: 3 to 10 minutes Status at Discharge Functional status at discharge: independent ambulation Overall status at discharge: patient is back to baseline Time Spent with Patient Time attestation: Total time spent providing and/or coordinating discharge services: Time spent: Less than 30 minutes Discharge Plan Discharge Patient Disposition: Home, Self-Care Discharge Diagnosis: MDD, recurrent, severe w/out psychotic features, in full remisson Referrals: Intensive Outpatient Program (IOP): [facility] [place] [Other] - 12/08/21 9:00 am (You will be emailed a link to join the program ) [facility] (NA) Meetings [Other] - 1 Week (https://www.na.org/meetingsearch/[email or web address] *You can enter State, City & Change to within 100 miles and meeting format to virtual and it will give you virtual meeting options ) [facility] Meet[facility] [Other] - 1 Week (https://[email or web address]/[email or web address] *Click on Click to [place] and create a username and password; there will be a list of meetings for Tuesday-Tuesday for the upcoming week ) Therapist: Shiloh Brady ([facility]) [Other] - 1 Week Psychiatrist: Dr. James ([facility]) [Other] - 12/28/21 2:15 pm (*In-person, at the office ) Caroline Thapa MD [Primary Care Provider] - 1 Week Discharge Medications: New lurasidone 60 mg tablet 60 mg PO DAILY 30 Days Qty: 30 0RF Rx Instructions: must administer with food (at least 350 calories) Latuda 40 mg tablet 40 mg PO DAILY 7 Days Qty: 7 0RF Rx Instructions: must administer with food (at least 350 calories) Continued acetaminophen 325 mg Tablet 650 mg PO Q6H PRN (Reason: HEADACHE/MILD PAIN) 0RF clonidine HCl 0.1 mg Tablet 0.1 mg PO TID PRN (Reason: for daytime anxiety and bedtime hyperarousal) 30 Days Qty: 90 0RF metoclopramide HCl 5 mg Tablet 5 mg PO TIDAC PRN (Reason: nausea and vomiting; motility) 30 Days Qty: 90 0RF Rx Instructions: for GI motility gabapentin 800 mg Tablet 800 mg PO BID 30 Days Qty: 60 0RF diphenhydramine HCl [Wal-Sleep Z] 25 mg Capsule 25 mg PO BEDTIME 30 Days Qty: 30 0RF benztropine 1 mg Tablet 1 mg PO BID PRN (Reason: EPS/dystonia) 30 Days Qty: 30 0RF zolpidem 5 mg Tablet 5 mg PO BEDTIME 15 Days Qty: 15 1RF fluoxetine 20 mg Capsule 20 mg PO DAILY 30 Days Qty: 30 0RF duloxetine 30 mg Capsule,Delayed Release(Dr/Ec) 90 mg PO DAILY 30 Days Qty: 90 0RF Changed loperamide 2 mg capsule 4 mg PO Q4H PRN (Reason: Diarrhea) 30 Days Qty: 30 0RF bethanechol chloride 25 mg tablet 25 mg PO TIDWM 30 Days Qty: 90 0RF trazodone 100 mg Tablet 100 mg PO BEDTIME PRN (Reason: insomnia) 30 Days Qty: 30 0RF clonazepam [Klonopin] 2 mg tablet 2 mg PO BEDTIME PRN (Reason: insomnia) 15 Days Qty: 30 1RF Discontinued gabapentin 400 mg Capsule 400 mg PO DAILY PRN (Reason: BREAKTHROUGH NEUROPATHIC PAIN) 30 Days Qty: 30 0RF hydroxyzine HCl 25 mg Tablet 25 mg PO BID PRN (Reason: Anxiety) 30 Days Qty: 30 0RF Latuda 40 mg Tablet 40 mg PO BEDTIME 30 Days Qty: 30 1RF Discharge Orders: Discharge Order (Routine); Ordered 12/07/21 Ordered By: Chirag Alcazar Diet: regular diet Activity on Discharge: As tolerated Stand Alone Forms: Patient Portal Discharge page Care Plan Goals: Maintain mood and safe behaviors Take medications as prescribed Continue to pursue sobriety Practice coping skills Continue with outpatient providers and reach out to them as needed Health Concerns: Mood stability and behaviors Anorexia Sobriety Plan of Treatment: Follow up with your PCP, psychiatric provider and other outpatient providers regarding above concerns Take medications as prescribed Assessment: Risk assessment at time of discharge:? Patient was interviewed prior to discharge and found to be fully oriented and without any SI or HI. Patient has insight and demonstrates good judgment in terms of wanting to pursue treatment. Patient is not in imminent risk of harm to self or others and has a safety plan that includes presenting to the closest ER or calling 911 if feeling unsafe.? Patient has been observed closely by nursing and unit staff throughout admission; patient has not engaged in any behaviors that suggest dangerousness to self or others and has demonstrated appropriate behaviors and impulse control
[2021-12-07] MEDS: Naloxone HCl Nasal TAKE HOME 4 MG SPRAY NOSTRILALT (13:30)
== END 2021-12-07 13:55 | disposition home or self-care (01) | DRG 751 ==
LOC: HO.ED 15:40 → HO.PM5 11-26 18:00
PROVIDERS: Physician Assistant; Registered Nurse; Admitting Provider Psychiatry & Neurology Psychiatry; Emergency Provider Emergency Medicine; PCP Family Medicine; Visit Provider Psychiatry & Neurology Psychiatry
DX: F33.1 Major depressive disorder, recurrent, moderate (principal); F50.01 Anorexia nervosa, restricting type; R45.851 Suicidal ideations; F14.10 Cocaine abuse, uncomplicated; F43.10 Post-traumatic stress disorder, unspecified; Z68.1 Body mass index [BMI] 19.9 or less, adult; Z20.822 Contact with and (suspected) exposure to COVID-19; Z98.1 Arthrodesis status; Z93.2 Ileostomy status; Z88.2 Allergy status to sulfonamides; Z79.899 Other long term (current) drug therapy
CPT/HCPCS: 36415; 80053; 80061; 80307; 81003; 81025; 82077; 82607; 82746; 83036; 83735; 84439; 84443; 85025; 87635; 99285; Q0163

== ENCOUNTER 2022-01-19 18:22 | Emergency (ER) | payer MEDICAID, SELFPAY | END 2022-01-19 19:39 | disposition left against medical advice (07) | LOC: HO.ED 19:40 | PROVIDERS: Emergency Provider Emergency Medicine | DX: Z76.89 Persons encountering health services in other specified circumstances (principal) ==

== ENCOUNTER 2022-01-19 19:40 | Emergency (ER) | payer MEDICAID, SELFPAY ==
--- NOTE | ~2022-01-19 | US_ITS ---
EXAMINATION: US VENOUS ULTRASOUND WITH DOPPLER LOWER EXTREMITY, RIGHT CLINICAL INFORMATION: Pain COMPARISON: None TECHNIQUE: Ultrasound of the deep veins is performed from the hip to the calf with compression sonography and color and pulse Doppler assessment. Spectral analysis with color-flow imaging is performed. FINDINGS: There is normal venous compression and respiratory variation and augmented flow. The visualized common femoral vein, superficial femoral vein, profunda femoral vein, popliteal vein, and the trifurcation region shows no evidence of deep venous thrombosis. There is no significant popliteal fossa cyst. If the patient's symptoms persist, followup ultrasound in 5 days 7 days might be of value to exclude proximal propagation from a non-visualized calf vein. US/US venous duplex LE RT IMPRESSION: No DVT demonstrated in the right lower extremity.
[2022-01-19 20:01] VITALS: BP 142/91; PULSE 92; RESP 16; TEMP 36.6; O2SAT 98; BMI 17.9
--- NOTE | 2022-01-19 20:12 | ED.PSYCH ---
HPI - Psych General Chief Complaint: Psychiatric Symptoms Stated Complaint: crisis Time Seen by Provider: 01/19/22 20:11 Source: patient Mode of arrival: ambulatory Limitations: no limitations History of Present Illness HPI Narrative: 36 year old female crack cocaine abuser with anorexia asking to see ERASTO hare on evaluation. Denies SI or HI. She states she has been using crack cocaine for the past 6-8 months. She has a history of substance abuse with combining gabapentin with many other medications she is very restrictive states she is unsure of the last time she ate anything. She was most recently seen by Chirag cole in December 07. She also has a history of an ostomy bag and urinary tension and chronic pain she relapsed on her previous visit 3 days after discharge she admits recent being in the hospital and is complaining of right leg pain which is a chronic problem for the patient she states she had ultrasounds at another hospital was told that it was all due to malnutrition. MD complaint: anxiety and substance abuse Related Data Home Medications Medication Instructions Recorded Confirmed clonazepam 2 mg tablet 1 tab PO QPM 01/19/22 01/19/22 clonidine HCl 0.1 mg tablet 1 tab PO TID PRN Anxiety 01/19/22 01/19/22 duloxetine 30 mg capsule,delayed 1 cap PO DAILY 01/19/22 01/19/22 release fluoxetine 20 mg capsule 1 cap PO DAILY 01/19/22 01/19/22 trazodone 100 mg tablet 1 tab PO BEDTIME 01/19/22 01/19/22 zolpidem 5 mg tablet 1 tab PO BEDTIME 01/19/22 01/19/22 Allergies Allergy/AdvReac Type Severity Reaction Status Date / Time buspirone [From BuSpar] Allergy Swelling Verified 07/23/21 19:02 chlorpromazine Allergy Anaphylaxis Verified 07/23/21 19:02 [From Thorazine] lamotrigine [From Lamictal] Allergy Rash Verified 07/23/21 19:02 Sulfa (Sulfonamide Allergy Rash Verified 07/23/21 19:02 Antibiotics) linaclotide [From Linzess] AdvReac Abdominal Verified 07/23/21 19:02 Pain quetiapine [From Seroquel] AdvReac bad side Verified 07/23/21 19:02 effects' topiramate AdvReac Fogginess Verified 07/23/21 19:02 ziprasidone [From Geodon] AdvReac psychosis Verified 07/23/21 19:02 Review of Systems Review of Systems: Review of systems: General: Patient denies any fever chills recent illness or falls Musculoskeletal: Denies back pain or body aches or other injuries HEENT: denies headache, runny nose, ear pain Respiratory: denies shortness of breath, cough Cardiovascular: no chest pain or palpitations : denies dysuria, frequency Abdomen: no nausea vomiting denies abdominal pain Extremities: no swelling, no pain Skin: no diaphoresis Yes all other systems are reviewed and are negative PMFSH Past Medical History Attestation statement: The following information was validated with the patient. 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 Primary fibromyalgia syndrome Self-catheterizes urinary bladder Surgical History Hx of total colectomy Social History Social History Household Members: Significant Other Housing: House Do you presently have visiting nurse or other home services: No Alcohol intake: current Patient Tobacco Use Status: Former Tobacco user Tobacco use type: Cigarette Cigarettes Per Day: 1 Years Smoked: Started age 17 e-Cigarette/Vaping Use: Never Used Second Hand Smoke Exposure: No Substance Use Type: Crack/Cocaine and Opiates Advance Directives Date on File: 10/09/21 service: No Current occupational status: unemployed Sexual orientation: Straight/Heterosexual Physical Exam Vital Signs: Vital Signs: Last Vital Signs Temp 97.8 F 01/19/22 20:01 Pulse 92 01/19/22 20:01 Resp 16 01/19/22 20:01 BP 142/91 H 01/19/22 20:01 Pulse Ox 98 01/19/22 20:01 O2 Del Method 01/19/22 20:01 BMI result Body Mass Index 17.9 General: Well-appearing well-nourished in no signs of distress HEENT: Normocephalic atraumatic Neck: No signs of JVD, no masses no tenderness or lymphadenopathy Cardiovascular: Regular rate and rhythm Respiratory: Clear to auscultation bilaterally Abdomen: Soft nontender no masses Extremities: Normal pedal pulses no signs of edema right leg is tender to palpation on the medial aspect of the calf and no redness or swelling or signs of infection Skin: Dry warm no rashes Back: No tenderness full ROM MDM - Psych MDM Narrative Medical decision making narrative: Patient will have labs sent and I will have the patient evaluated by crisis once medically cleared. I will send off the DVT study of the right lower extremity Differential Diagnosis Differential diagnosis: Likely acute psychosis, bipolar disorder, depression, drug-induced psychotic disorder, acute anxiety and substance abuse Discharge Plan Discharge Clinical Impression: Anorexia nervosa, restricting type, Drug-induced psychotic disorder, Crack cocaine use Patient Disposition: Still a Patient Transfer Details: Patient will be signed out pending medical clearance. Prescriptions: No [facility] clonidine HCl 0.1 mg tablet 1 tab PO TID PRN (Reason: Anxiety) trazodone 100 mg tablet 1 tab PO BEDTIME clonazepam 2 mg tablet 1 tab PO QPM zolpidem 5 mg tablet 1 tab PO BEDTIME fluoxetine 20 mg capsule 1 cap PO DAILY duloxetine 30 mg capsule,delayed release(DR/EC) 1 cap PO DAILY
[2022-01-19 20:51] LABS: COVID-19 Test Negative (Negative)
[2022-01-19 21:12] LABS: MANUAL DIFF FLAG NO
[2022-01-19 21:13] LABS: Basophils Percent Auto 0.3 % (0-2); Eosinophils Percent Auto 0.7 % (0-4); Hematocrit 35.9 % (37.0-47.0); Hemoglobin 11.9 g/dl (12.0-16.0); Imm Gran Abs Auto 0.01 X10*3/uL (0.00-0.03); Imm Gran Pct Auto 0.2 % (0.0-0.4); Lymphocytes Absolute Auto 1.8 X10*3/uL (1.2-4.9); Lymphocytes Percent Auto 30.1 % (20-40); Mean Corpuscular HGB Conc 33.1 g/dl (31.0-35.0); Mean Corpuscular Hemoglobin 29.7 pg (27.0-33.0); Mean Corpuscular Volume 89.5 fL (80.0-98.0); Mean Platelet Volume 9.9 fL (9.4-12.3); Monocytes Absolute Auto 0.5 X10*3/uL (0.1-1.2); Monocytes Percent Auto 8.4 % (2-11); Neutrophils Absolute Auto 3.6 x10*3/uL (2.0-8.3); Neutrophils Percent Auto 60.3 % (45-73); Platelet Count 197 X10*3/uL (160-400); Red Blood Count 4.01 X10*6/uL (4.20-5.50); Red Cell Distribution Width 13.5 % (11.0-16.0)
[2022-01-19 21:19] LABS: UPreg QC Valid YES; Urine Pregnancy NEGATIVE (NEGATIVE)
[2022-01-19 21:29] LABS: Acetaminophen LAB < 1 mcg/mL (<30); Alanine Aminotransferase 19 U/L (0-31); Albumin Level 4.7 g/dL (3.5-5.0); Alkaline Phosphatase 38 U/L (39-117); Anion Gap 15 (12-20); Aspartate Amino Transferase 28 U/L (5-31); Bilirubin Total 0.9 mg/dL (0.0-1.0); Blood Urea Nitrogen 18 mg/dL (9-16); Calcium 9.9 mg/dL (8.4-10.2); Carbon Dioxide 25 mmol/L (22-29); Chloride 100 mmol/L (96-108); Creatinine Clr Calc Pharmacy 72.4; Estimated Glomerular Filt Rate > 60; Ethanol < 10 mg/dL; Glucose Random 99 mg/dL (60-115); Potassium 3.5 mmol/L (3.3-5.1); Salicylate < 5.0 mg/dL (15-30); Sodium 136 mmol/L (135-145); Total Protein 7.7 g/dL (6.5-8.0)
[2022-01-19 21:30] LABS: Amphetamine Screen Urine Not Detected (Not Detect); Barbiturates, Urine Not Detected (Not Detect); Benzodiazepines Screen Urine Not Detected (Not Detect); Cannabinoid Screen Urine Not Detected (Not Detect); Cocaine Screen Urine POSITIVE (Not Detect); Fentanyl, urine POSITIVE (Not Detect); Opiate Screen Urine Not Detected (Not Detect); Phencyclidine Screen Urine Not Detected (Not Detect)
[2022-01-19] MEDS: clonazePAM 1 MG TABLET 2 MG PO (22:15)
[2022-01-19] MEDS: Gabapentin 400 MG CAPSULE 800 MG PO (22:16)
[2022-01-19] MEDS: Zolpidem Tartrate 5 MG TABLET PO (22:16)
[2022-01-19] MEDS: traZODone HCL 100 MG TABLET PO (22:16)
[2022-01-19] MEDS: cloNIDine HCL 0.1 MG TABLET PO (22:21)
[2022-01-19 22:26] VITALS: BP 112/78; PULSE 74
[2022-01-19] MEDS: Lurasidone HCl 20 MG TABLET 60 MG PO (22:31)
[2022-01-20 06:39] VITALS: BP 95/43; PULSE 64; RESP 15; TEMP 36.7; O2SAT 97
--- NOTE | 2022-01-20 06:57 | PC.NURSE ---
Patient slept through the night, no distress observed/reported, medication compliant, behavior non concerning, [facility]N referral completed/confirmed/pending provider's approval, VSS, will continue to monitor.
--- NOTE | 2022-01-20 07:24 | PC.NURSE ---
patient appears to remain asleep at present respirations are even and unlabored patient appears in no distress
[2022-01-20 07:58] LABS: Appearance Urine CLEAR; Glucose Urine UA NEG (NEG); Leukocyte Esterase Urine NEG (NEG); Nitrite Urine NEG (NEG); Specific Gravity - Urine <= 1.005 (1.005-1.025); Urine Blood NEG (NEG); Urine Ketones NEG (NEG); Urine Protein NEG (NEG-TRACE)
[2022-01-20 07:59] LABS: Color Urine COLORLESS
[2022-01-20 08:01] LABS: UPreg QC Valid YES; Urine Pregnancy NEGATIVE (NEGATIVE)
[2022-01-20] MEDS: FLUoxetine HCl 20 MG CAPSULE PO (10:24)
[2022-01-20] MEDS: Gabapentin 400 MG CAPSULE 800 MG PO ×2 (10:24→23:36)
[2022-01-20] MEDS: DULoxetine HCl 30 MG CAPSULE.DR PO (10:25)
--- NOTE | 2022-01-20 14:53 | MHC.RECOVRN ---
Pt cleared by ERASTO, interested in [facility], Applications Administrator started process, this technical document writer followed up w/ [facility], pt completed phone intake, updated patient referral information, awaiting notification of acceptance to [facility].
--- NOTE | 2022-01-20 16:17 | MHC.RECOVRN ---
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 Original Note: Informed pt [facility] does not have bed availability today. [facility] Madrigal informed t/w that pt would likely be declined for [facility] level of care regardless due to pt informing rehabilitation program coordinator that pt is currently engaging in disordered eating and will only eat salad and peaches. Referral sent to [facility], [facility], [facility], and [facility]. CARE Team aware.
[2022-01-20 16:33] VITALS: BP 106/53; PULSE 71; RESP 15; O2SAT 97
--- NOTE | 2022-01-20 17:14 | MHC.RECOVSUP ---
? Reason for consult Recovery Support o Current location: ED6H o Identified substance use concern: Crack - Seeking ATS (detox) - Support ? Intervention: o Community resources provided o Harm reduction discussion ? Plan: o Patient to follow up with [facility] after discharge ? Additional information: I followed up with Geraldo Gold, THEA Hoskins, and Bruno Díaz. And theystated that they where still reviewing patient chart.. I spoke with Patient to find out what detox she was last in and she stated [facility]. but that they would not take patient due to getting caught getting high in the bathroom
[2022-01-20 21:37] VITALS: BP 100/62; PULSE 60; RESP 16; O2SAT 99
[2022-01-20] MEDS: traZODone HCL 100 MG TABLET PO (23:35)
[2022-01-20] MEDS: clonazePAM 1 MG TABLET 2 MG PO (23:35)
[2022-01-20] MEDS: Zolpidem Tartrate 5 MG TABLET PO (23:35)
[2022-01-20] MEDS: cloNIDine HCL 0.1 MG TABLET PO (23:35)
[2022-01-20] MEDS: Lurasidone HCl 20 MG TABLET 60 MG PO (23:41)
--- NOTE | 2022-01-20 23:47 | PC.NURSE ---
pt medicated with bedtime medications, pt given sixto crackers. pt ambulated to with steady gait. resting in bed at this time
[2022-01-21 05:31] VITALS: BP 102/52; PULSE 57; RESP 16; O2SAT 96
--- NOTE | 2022-01-21 08:58 | MHC.CARE ---
Call from Tatum at [facility], they are unable to accept patient due to medical complexity. They recommend she be referred to a level IV detox, [facility].
[2022-01-21] MEDS: Gabapentin 400 MG CAPSULE 800 MG PO ×2 (10:20→22:47)
[2022-01-21] MEDS: DULoxetine HCl 30 MG CAPSULE.DR PO (10:20)
[2022-01-21] MEDS: FLUoxetine HCl 20 MG CAPSULE PO (10:21)
--- NOTE | 2022-01-21 11:25 | MHC.CARE ---
Pt reported to recovery team she is reporting experiencing psychosis and needing re-eval. BHN smart sheet completed and [facility]N coming for re-eval.
--- NOTE | 2022-01-21 13:01 | PC.NURSE ---
bed was zero'd out and we obtained a bed weight
[2022-01-21 14:00] VITALS: BP 94/56; PULSE 55; RESP 16; TEMP 36.8; O2SAT 99
--- NOTE | 2022-01-21 14:18 | PC.NURSE ---
psych assessment was unable to be performed, patient is not si/hi, she is not being held against her will, pt is here until they are able to secure a place for her for eating disorder, n/care team are working on this and have stated she will likely [facility] if they have an open bed. patient a&ox3, ambulates independently, iliostomy-self care, vitals stable, pt currently watching tv, call abad within reach, will continue to monitor
[2022-01-21 20:28] VITALS: BP 104/63; PULSE 64; RESP 16; TEMP 36.3; O2SAT 99
--- NOTE | 2022-01-21 20:28 | MHC.CARE ---
Spoke to pt's father who reports pt's presentation has significantly declined and advocates for an eating disorder unit to stabilize her medically. Dominic, father [phone]
--- NOTE | 2022-01-21 21:08 | PC.NURSE ---
PT REFUSING TO TAKE MEDICATIONS AT THIS TIME, WILL PLACE MEDS IN MED ROOM AND GET THEM WHEN SHE IS READY, PT STATES SHE WOULD LIKE THEM AROUND 10-11PM.
--- NOTE | 2022-01-21 21:49 | PC.NURSE ---
unable to do ed psych symptoms- pt is not si/hi, she is not here on a section, pt is not a 1:1. n/care team are looking for treatment facility for anorexia patient a&ox3, ambulates independently to bathroom, no c/o pain or discomfort, vitals stable, pt taking very little po, call abad within reach, will continue to monitor.
[2022-01-21] MEDS: clonazePAM 1 MG TABLET 2 MG PO (22:47)
[2022-01-21] MEDS: Zolpidem Tartrate 5 MG TABLET PO (22:47)
[2022-01-21] MEDS: traZODone HCL 100 MG TABLET PO (22:47)
[2022-01-21] MEDS: Lurasidone HCl 20 MG TABLET 60 MG PO (22:48)
[2022-01-21] MEDS: cloNIDine HCL 0.1 MG TABLET PO (23:26)
[2022-01-21 23:27] VITALS: BP 104/62; PULSE 57; RESP 18; TEMP 36.3; O2SAT 97
[2022-01-22 05:59] VITALS: BP 91/50; RESP 18; TEMP 36.4; O2SAT 97
[2022-01-22] MEDS: FLUoxetine HCl 20 MG CAPSULE PO (12:45)
[2022-01-22] MEDS: Gabapentin 400 MG CAPSULE 800 MG PO (12:45)
[2022-01-22] MEDS: DULoxetine HCl 30 MG CAPSULE.DR PO (12:45)
[2022-01-22 13:23] LABS: Blood Urea Nitrogen 16 mg/dL (9-16); Calcium 9.4 mg/dL (8.4-10.2); Creatinine Clr Calc Pharmacy 73.8; Estimated Glomerular Filt Rate > 60; Glucose Random 73 mg/dL (60-115)
[2022-01-22 13:30] LABS: Anion Gap 7 (12-20); Carbon Dioxide 31 mmol/L (22-29); Chloride 106 mmol/L (96-108); Potassium 4.4 mmol/L (3.3-5.1); Sodium 140 mmol/L (135-145)
[2022-01-22 14:15] VITALS: BP 106/80; PULSE 70; RESP 18; O2SAT 100
[2022-01-22 18:03] VITALS: BP 119/69; PULSE 60; RESP 16; TEMP 36.9; O2SAT 98
[2022-01-22 22:56] VITALS: BP 113/71; PULSE 68; RESP 16; TEMP 36.7; O2SAT 98
[2022-01-22] MEDS: clonazePAM 1 MG TABLET 2 MG PO (23:30)
[2022-01-22] MEDS: traZODone HCL 100 MG TABLET PO (23:31)
[2022-01-22] MEDS: Zolpidem Tartrate 5 MG TABLET PO (23:31)
[2022-01-22] MEDS: cloNIDine HCL 0.1 MG TABLET PO (23:45)
[2022-01-22 23:47] VITALS: BP 118/71
--- NOTE | 2022-01-23 00:02 | PC.NURSE ---
Patient asked for her evening medication which she didn't take at the scheduled time. Patient was in overflow and transferred back to the emergency room due to staffing. Patient requested her medication. She only had 3 medications listed in the pyxis which were the following medication: Latuda 60 mg, Clonidine 0.1 mg and Trazadone. The RN in overflow pulled patient's Gabapentin 800 mg, Clonazepam 2 mg, Zolpidem 5 mg at 2055 but were not given to patient. RN had the medications but not the Gabapentin.
[2022-01-23] MEDS: Lurasidone HCl 20 MG TABLET 60 MG PO (00:05)
[2022-01-23] MEDS: Gabapentin 400 MG CAPSULE 800 MG PO ×2 (00:05→09:42)
[2022-01-23 05:36] VITALS: BP 93/44; PULSE 56; RESP 16; TEMP 36.7; O2SAT 98
[2022-01-23 06:06] LABS: Anion Gap 10 (12-20); Blood Urea Nitrogen 17 mg/dL (9-16); Calcium 9.1 mg/dL (8.4-10.2); Carbon Dioxide 25 mmol/L (22-29); Chloride 107 mmol/L (96-108); Estimated Glomerular Filt Rate > 60; Glucose Random 96 mg/dL (60-115); Potassium 4.1 mmol/L (3.3-5.1); Sodium 138 mmol/L (135-145)
[2022-01-23 08:05] VITALS: BP 86/39; PULSE 61; RESP 16; TEMP 36.8; O2SAT 98
--- NOTE | 2022-01-23 08:09 | PC.NURSE ---
Patient is alert and oriented. Lung sounds are clear on all lobes. Heart sounds are regular. Active bowel sounds. Ileostomy in place and patent. BP 86/39. Pither of water provided. Repositioned to be rechecked. Pt reports no sign of SI/HI at this time. Pt is aware of plan of care. MD aware.
--- NOTE | 2022-01-23 09:37 | PC.NURSE ---
per [facility] they can not take the pt to the facility today and they will try to pass the call. I placed a call to [facility] and they do not have a truck to send out
[2022-01-23] MEDS: FLUoxetine HCl 20 MG CAPSULE PO (09:42)
[2022-01-23] MEDS: DULoxetine HCl 30 MG CAPSULE.DR PO (09:43)
--- NOTE | 2022-01-23 09:45 | PC.NURSE ---
charge nurse Analisa placed a call to [facility] and asked if they could take them. [facility] decline.I placed a call to [facility] they told ,e they could possibly take it they will be gibing me a call back.
--- NOTE | 2022-01-23 10:15 | PC.NURSE ---
pt oob took his bag of belongings. gait steady, lucid and left the er. aware.
[2022-01-23 10:51] VITALS: BP 100/49; PULSE 58; RESP 16; TEMP 36.9; O2SAT 98
--- NOTE | 2022-01-23 10:53 | PC.NURSE ---
per [facility] they may be able to get the pt out for 8pm Karyna from [facility] said she will reach out to her supervisor general to see what she can do. Care team was notified awaiting to see what [facility] says
--- NOTE | 2022-01-23 11:45 | PC.NURSE ---
RN report given to LEATHA Worlye. Pt ambulates independent to the pod with a steady gait.
--- NOTE | 2022-01-23 13:19 | PC.NURSE ---
Pt patiently waiting in [facility] while plans for transfer to [place] eating disorder facility are sorted out. Transportation is limited. this RN awaiting return call from Vickie at [facility] regarding availability today. Vickie is [phone], Pt states her boyfriend can bring her. Care Team assisting as well. Pt awake, denies SI, eating small lunch of yogurts and cottage cheese. Pt managing catheter and colostomy care independently.
--- NOTE | 2022-01-23 16:56 | PC.NURSE ---
THis RN spoke with Ella from [facility] who states that patient only had a section for transport, not to hold patient in ED. Transport section 12 is present and signed by Dr Jean. [facility] encouraging this rn to speak with Dayna directly to determine while ambulance is necessary. Dayna is
--- NOTE | 2022-01-23 17:01 | PC.NURSE ---
Sara Nugent on phone. States that patient can arrive by private car. This RN to inform patient and provider, [facility] and Care TeAM.
[2022-01-23 17:38] VITALS: BP 101/56; PULSE 60; RESP 16; TEMP 36.1; O2SAT 100
== END 2022-01-23 18:30 | disposition home or self-care (01) ==
PROVIDERS: Student in an Organized Health Care Education/Training Program; Emergency Provider Emergency Medicine Emergency Medical Services
DX: F14.159 Cocaine abuse with cocaine-induced psychotic disorder, unspecified (principal); F50.01 Anorexia nervosa, restricting type; Z68.1 Body mass index [BMI] 19.9 or less, adult; M79.604 Pain in right leg; F33.1 Major depressive disorder, recurrent, moderate; F41.9 Anxiety disorder, unspecified; F43.10 Post-traumatic stress disorder, unspecified; M79.7 Fibromyalgia; Z93.2 Ileostomy status; Z87.891 Personal history of nicotine dependence; Z79.899 Other long term (current) drug therapy
CPT/HCPCS: 36415; 80048; 80053; 80143; 80179; 80307; 81003; 81025; 82077; 85025; 87635; 93971; 99285

== ENCOUNTER 2022-06-21 14:42 | Emergency (ER) | payer MEDICAID, SELFPAY ==
[2022-06-21 14:59] VITALS: BP 130/100; PULSE 110; O2SAT 98
[2022-06-21 15:01] VITALS: BP 141/85; PULSE 115; RESP 14; TEMP 36.6; O2SAT 92; BMI 20.5
--- OUTSIDE RECORDS SUMMARY | 2022-06-21 15:48 | XMS_ITS | Continuity of Care Document ---
:1985 Author Organization [facility] Address [address] [place] [id number]- Care Team Providers Name Role Phone Caroline Thapa MD Primary Care Physician Encounter [facility] [place] Date(s): 08/09/19 - 08/12/[address] [address]- [facility] Discharge Disposition: A-D/C Home Attending Physician: Monster RICHARDSON, Angi Brooks Admitting Physician: Corey Lutz MD Referring Physician: Not on Staff, Referring MD Allergies, Adverse Reactions, Alerts Substance Reaction Severity Status sulfa drugs hives Active Lamictal rash Active Thorazine thorat closes Active Buspar1 rash Active Geodon psychosis Active 1rash Immunizations Given and Recorded Vaccine Date Status Refusal Reason Hepatitis A Vaccine (oldterm) 02/15/06 Given Medications Ambien 10 mg oral tablet 1 tablet = 10 mg, By Mouth, Daily at bedtime, 0 Refills, Maintenance, 02/10/18 8:43:32 EDT Start Date: 02/10/18 Status: Orderedbethanechol 5 mg oral tablet 1 tablet = 5 mg, By Mouth, 3 times a day, for 30 days, # 90 tablet, 3 Refills, Acute 08/28/19 15:58:45 EST, 04/30/19 15:58:45 EDT, Tablet Start Date: 04/30/19 Stop Date: 08/28/19 Status: Orderedbrava bararier seals [id number] brava bararier seals [id number], See Instructions, # 20 units, Refills 11, Tot. Refills 11, Maintenance,use as needed for ostomy care. Dx. ileostomy, 03/19/19 11:54:35 EDT, Compound Start Date: 03/19/19 Status: OrderedClonazepam = 2 mg, By Mouth, Daily at bedtime, 0 Refills, Maintenance, 02/10/18 8:43:20 EDT Start Date: 02/10/18 Status: Orderedcoloplast 05740 coloplast 31390, See Instructions, # 20 each, Refills 11, Tot. Refills 11, Maintenance, use as needed for ostomy care Dx. ileostomy, 03/19/19 11:53:12 EDT, Compound Start Date: 03/19/19 Status: Orderedcoloplast 62578 coloplast 26653, See Instructions, # 20 each, Refills 11, Tot. Refills 11, Maintenance, use as needed for ostomy care Dx. ileostomy, 03/19/19 11:53:15 EDT, Compound Start Date: 03/19/19 Status: OrderedCranberry = 4,200 mg, By Mouth, 7 pills (29.,400mg) qam, 0 Refills, Maintenance, 04/30/19 16:20:54 EDT Start Date: 04/30/19 Status: OrderedCymbalta = 90 mg, By Mouth, Daily at bedtime, 0 Refills, 12/12/08 11:20:40 EDT Start Date: 12/12/08 Status: OrderedDramamine Tablet 25 mg, By Mouth, Daily at bedtime, Refills 0, Maintenance, 08/22/18 12:55:03 EST Start Date: 08/22/18 Status: Orderedeakin seals jonathon seals, See Instructions, # 20 each, Refills 11, Tot. Refills 11, Maintenance, use as needed for ostomy maintenance Dx ileostomy, 03/19/19 11:53:33 EDT, Compound Start Date: 03/19/19 Status: OrderedFlexeril 10 mg oral tablet 1, tablet, By Mouth, 3 times a day, PRN, # 30 tablet, Refills 0, Maintenance, for spasm, 04/30/19 16:20:44 EDT Start Date: 04/30/19 Status: OrderedFLUoxetine 10 mg oral capsule 10 mg, 1, capsule, By Mouth, Daily, Refills 0, Maintenance, 02/10/18 8:43:52 EDT Start Date: 02/10/18 Status: OrderedGabapentin = 600 mg, By Mouth, Daily, before bed, 0 Refills, Maintenance, 04/30/19 16:19:34 EDT Start Date: 04/30/19 Status: OrderedIbuprofen 400 mg, By Mouth, Daily, Refills 0, Maintenance, 08/22/18 12:54:29 EST Start Date: 08/22/18 Status: Orderedloperamide 2 mg oral capsule 2 mg, 1, capsule, By Mouth, Daily at bedtime, PRN, for 10 days, # 30 capsule, Refills 0, Tot. Refills 0, Acute 08/22/19 11:04:00 EST, for loose stool, 08/12/19 11:04:00 EST, Print Requisition Start Date: 08/12/19 Stop Date: 08/22/19 Status: Orderedno sting skin prep spray no sting skin prep spray, See Instructions, # 1 bottle, Refills 11, Tot. Refills 11, Maintenance, use as needed for ostomy care. Dx ileostomy, 03/19/19 11:53:17 EDT, Compound Start Date: 03/19/19 Status: OrderedOmeprazole = 20 mg, By Mouth, Daily, 0 Refills, Maintenance, 08/22/18 12:54:17 EST Start Date: 08/22/18 Status: Orderedsize small, latex free gloves size small, latex free gloves, See Instructions, # 1 box, Refills 11, Tot. Refills 11, Maintenance, use as needed for ostomy care Dx Ileostomy, 03/19/19 11:57:26 EDT, Compound Start Date: 03/19/19 Status: Orderedstoma powder stoma powder, See Instructions, # 1 bottle, Refills 11, Tot. Refills 11, Maintenance, use as needed for ostomt care. Dx ileostomy, 03/19/19 11:53:05 EDT, Compound Start Date: 03/19/19 Status: OrderedtraZODone 100 mg oral tablet 100 mg, 1, tablet, By Mouth, Daily at bedtime, Refills 0, Maintenance, 04/30/19 16:26:56 EDT Start Date: 04/30/19 Status: Ordered Problem List Condition Effective Dates Status Health Status Informant Anxiety(Confirmed) Active Depression(Confirmed) Active Eating disorder(Confirmed) 2003 Active Fibromyalgia(Confirmed) Active OCD (obsessive compulsive Active disorder)(Confirmed) Results Radiology Reports Exam Date Time Procedure Performing Provider Status 08/10/19 1:32 PM Small Bowel Series Sun Ann; Sarahy (Veri fied) Notes:(Small Bowel Series) Reason For Exam: SBO on CT scan;Abnormal Imaging StudyRESULT: Small Bowel Series Study: Small Bowel Series Indication: Rule out obstruction Comparison: Radiographs and CT from 08/09/2019 Findings: Preliminary abdominal x-ray demonstrates NG tube with distal tip terminating in the gastric body. Nonspecific gas pattern. After administration of 300 cc [id number] via the patient's NG tube, sequential spot films were obtained. The stomach and duodenum are unremarkable. The loops of small bowel are not dilated and there is no fold thickening. No tethering, strictures, or masses. Contrast reaches the patient's ileostomy bag in 1 hour 40 minutes. Impression: No evidence of obstruction. By undersigning this report the attending radiologist acknowledges that he/she has read the report, reviewed the images, and agrees the findings. I have personally reviewed the images and I agree with this report. WSN: [id number] Dictated By: Valentin Mann Dictated Date/Time: 08/10/19 11:38 a Reviewed By: Liborio Hardy MD Signed By: Liborio Hardy MD Signed Date/Time: 08/10/19 11:43 am Transcribed By: TONE Transcribed Date/Time: 08/10/19 11:37 am Exam Date Time Procedure Performing Provider Status 08/09/19 8:59 PM Chest Portable Vance Tripp; Sarahy (Verified) Notes:(Chest Portable) Reason For Exam: Tube PlacementRESULT: Chest Portable Chest Portable AP semiupright 2026 hours Refer to EMR; Reason: Tube Placement; Clinical Question(s): Tube Placement COMPARISON: 10/10/2018 FINDINGS: LINES AND TUBES: Enteric tube is coiled in the stomach and was slightly withdrawn on the second radiograph. LUNGS AND PLEURA: Clear lungs. Normal pulmonary vascularity. No pleural effusion. No pneumothorax. HEART, MEDIASTINUM AND EMILIE: Heart is normal in size. Normal mediastinal and hilar contour. BONES AND SOFT TISSUES: No acute abnormality. IMPRESSION: 1. Well-positioned enteric tube. 2. No acute cardiopulmonary process. WSN: [id number] Dictated By: Dayron Thurman DO Dictated Date/Time: 08/09/19 10:00 p Reviewed By: Dayron Thurman DO Signed By: Dayron Thurman DO Signed Date/Time: 08/09/19 10:00 pm Transcribed By: TONE Transcribed Date/Time: 08/09/19 9:58 pm Exam Date Time Procedure Performing Provider Status 08/09/19 5:52 AM Abdomen Comp Inc Decub and/or Nehal [facility] (Verified) Erect Notes:(Abdomen Comp Inc Decub and/or Erect) Reason For Exam: PainRESULT: Abdomen Comp Inc Decub and/or Erect Abdomen Comp Inc Decub and/or Erect Reason: Pain; Clinical Question(s): Obstruction; Hx of Present Illness: Pt has hx of ileostomy last October, and since Tuesday has had pain directly under ostomy site radiating down towards pubic bone. States pain has been intensifying, is now nauseous w decreased PO intake. Output unchanged. COMPARISON: CT from 08/09/2019 FINDINGS: Nonspecific bowel gas pattern with slightly prominent loops of air-filled bowel in the right lower quadrant. No abnormal stool retention. No abnormal calcifications. No pneumoperitoneum. No acute bony abnormalities. There is contrast in the bladder from prior CT. IMPRESSION: Nonspecific bowel gas pattern. No pneumoperitoneum. WSN: [id number] Dictated By: Liborio Hardy MD Dictated Date/Time: 08/09/19 7:39 am Reviewed By: Liborio Hardy MD Signed By: Liborio Hardy MD Signed Date/Time: 08/09/19 7:39 am Transcribed By: TONE Transcribed Date/Time: 08/09/19 7:37 am Vital Signs Most recent to oldest [Reference 1 2 3 Range]: Height 130 cm 130 cm 130 cm (08/12/19 3:38 AM) (08/11/19 7:56 PM) (08/10/19 4:16 P M) Weight 50.6 kg 55 kg 53.9 kg (08/10/19 3:27 PM) (08/09/19 7:27 AM) (08/09/19 6:09 A M) Oxygen Saturation [94-100 %] 97 % 98 % 99 % (08/12/19 11:00 AM) (08/12/19 7:00 AM) (08/12/19 3:38 AM) Pulse Rate [55-90 bpm] 72 bpm 88 bpm 75 bpm (08/12/19 11:00 AM) (08/12/19 7:00 AM) (08/12/19 3:38 AM) Body Mass Index [18.5-24.99] 29.94 32.54 *H* *>HHI* (08/10/19 3:27 PM) (08/09/19 7:27 AM) Blood Pressure [90-138/55-84 mm 116/69 mm Hg 119/77 mm Hg 110/60 mm Hg Hg] (08/12/19 11:00 AM) (08/12/19 7:00 AM) (08/12/19 3:38 AM) Respiratory Rate [16-30 br/min] 18 br/min 18 br/min 18 br/min (08/12/19 11:00 AM) (08/12/19 9:17 AM) (08/12/19 9:17 AM) Temperature [96.8-100.4 DegF] 98.1 DegF 97.6 DegF 98 .4 DegF (08/12/19 11:00 AM) (08/12/19 7:00 AM) (08/12/19 3:38 AM) Mode of Delivery (Oxygen) Room air Room air Room a ir (08/12/19 11:00 AM) (08/12/19 7:00 AM) (08/12/19 3:38 AM) Blood pressure sites Arm, right Arm, right Arm, right (08/12/19 11:00 AM) (08/12/19 7:00 AM) (08/12/19 3:38 AM) Temperature Route Oral Oral Oral (08/12/19 11:00 AM) (08/12/19 7:00 AM) (08/12/19 3:38 AM) Dry Weight 50.6 kg 55 kg 53.9 kg (08/10/19 3:27 PM) (08/09/19 7:27 AM) (08/09/19 6:09 A M) Weight Obtained Via Standing scale (08/08/19 6:22 PM) Dry Weight Obtained Via Standing scale (08/08/19 6:22 PM) Sensory deficits None (08/10/19 3:27 PM) Mobility assistance Independent Independent (08/10/19 3:27 PM) (08/09/19 11:00 PM) Social History Social History Type Response Tobacco Use: 4 or less cigarettes(le ss than 1/4 pack)/day in last 30 days. Sex
--- OUTSIDE RECORDS SUMMARY | 2022-06-21 15:48 | XMS_ITS | Continuity of Care Document ---
:1985 Author Organization [facility] Address [address] [place] [address] Drive [address] [place] [address]- Care Team Providers Name Role Phone Caroline Thapa MD Primary Care Physician Encounter [facility] [place] Date(s): 09/07/19 - 09/17/[address] [place] [address]- [facility] Attending Physician: Admtr, [id number] Admitting Physician: [id number] Referring Physician: Admtr, Ar8 Allergies, Adverse Reactions, Alerts Substance Reaction Severity [...] 02/10/18 8:43:32 EDT Start Date: 02/10/18 Status: Orderedbrava bararier seals [id number] brava bararier seals [id number], See Instructions, # 20 units, Refills 11, Tot. Refills 11, Maintenance,use as needed for ostomy care. Dx. ileostomy, 03/19/19 11:54:35 EDT, Compound Start Date: 03/19/19 Status: OrderedClonazepam = 2 mg, By Mouth, Daily at bedtime, 0 Refills, Maintenance, 02/10/18 8:43:20 EDT Start Date: 02/10/18 Status: Orderedcoloplast 56846 coloplast 11193, See Instructions, # 20 each, Refills 11, Tot. Refills 11, Maintenance, use as needed for ostomy care Dx. ileostomy, 03/19/19 11:53:12 EDT, Compound Start Date: 03/19/19 Status: Orderedcoloplast 10099 coloplast 56036, See Instructions, # 20 each, Refills 11, [...] 08/22/18 12:54:29 EST Start Date: 08/22/18 Status: Orderedno sting skin prep spray no [...] Fibromyalgia(Confirmed) Active OCD (obsessive compulsive Active disorder)(Confirmed) Social History Social History Type Response Tobacco Use: 4 or less cigarettes(le ss than 1/4 pack)/day in last 30 days. Sex
--- OUTSIDE RECORDS SUMMARY | 2022-06-21 15:48 | XMS_ITS | Continuity of Care Document ---
:1985 Author Organization [facility] Address [address] [place] [address] [place] [id number]- Care Team Providers Name Role Phone Elier RICHARDSON, Caroline Connolly Primary Care Physician Encounter [facility] [place] Date(s): 03/18/20 - 04/17/[address] [place] [id number]- [facility] Attending Physician: Jolynn Lobo Admitting Physician: AdmtrJolynn Referring Physician: Admtr, Ar8 Allergies, Adverse Reactions, Alerts Substance Reaction Severity Status sulfa drugs hives Active Lamictal rash Active Thorazine thorat closes Active Buspar1 rash Active Geodon psychosis Active 1rash Immunizations Given and Recorded Vaccine Date Status Refusal Reason Hepatitis A Vaccine (oldterm) 02/15/06 Given Medications acetaminophen 500 mg oral capsule 2 capsule = 1,000 mg, By Mouth, Every 4 hours, PRN for pain, # 120 capsule, 0 Refills, Maintenance, 02/05/20 0:34:00 EDT, Capsule Start Date: 02/05/20 Status: OrderedAmbien 10 mg oral tablet 1 tablet = 10 mg, By Mouth, Daily at bedtime, 0 Refills, Maintenance, 02/10/18 8:43:32 EDT Start Date: 02/10/18 Status: Orderedbethanechol 10 mg oral tablet 1 tablet = 10 mg, By Mouth, 3 times a day, for 30 days, # 90 tablet, 4 Refills, Acute 05/08/20 14:54:00 EST, 12/10/19 14:54:00 EDT, Tablet, [id number], 165, cm, 12/04/19 10:31:00 EDT, Height, 55.1, kg, 11/17/19 3:58:00 EDT, Dry Weight Start Date: 12/10/19 Stop Date: 05/08/20 Status: Orderedbrava bararier seals [id number] brava bararier seals [id number], See Instructions, # 20 units, Refills 11, Tot. Refills 11, Maintenance,use as needed for ostomy care. Dx. ileostomy, 03/19/19 11:54:35 EDT, Compound Start Date: 03/19/19 Status: OrderedClonazepam = 2 mg, By Mouth, Daily at bedtime, 0 Refills, Maintenance, 02/10/18 8:43:20 EDT Start Date: 02/10/18 Status: Orderedcoloplast 91754 coloplast 22168, See Instructions, # 20 each, Refills 11, Tot. Refills 11, Maintenance, use as needed for ostomy care Dx. ileostomy, 03/19/19 11:53:12 EDT, Compound Start Date: 03/19/19 Status: Orderedcoloplast 43817 coloplast 46336, See Instructions, # 20 each, Refills 11, Tot. Refills 11, Maintenance, use as needed for ostomy care Dx. ileostomy, 03/19/19 11:53:15 EDT, Compound Start Date: 03/19/19 Status: OrderedCymbalta = 90 mg, By Mouth, [...] 11:53:33 EDT, Compound Start Date: 03/19/19 Status: Orderedferrous gluconate 324 mg oral tablet 1 tablet = 324 mg, By Mouth, 0 Refills, Maintenance, 12/07/19 11:59:00 EDT Start Date: 12/07/19 Status: OrderedFLUoxetine 10 mg oral capsule 10 mg, 1, capsule, By Mouth, Daily, Refills 0, Maintenance, 02/10/18 8:43:52 EDT Start Date: 02/10/18 Status: OrderedGabapentin = 600 mg, By Mouth, Daily, before bed, 0 Refills, Maintenance, 04/30/19 16:19:34 EDT Start Date: 04/30/19 Status: OrderedIndoor/Outdoor Allergy Relief = 10 mg, By Mouth, Daily, 0 Refills, Maintenance, 12/07/19 12:00:00 EDT Start Date: 12/07/19 Status: OrderedMultivitamin Daily, 0 Refills, Maintenance, 02/05/20 0:36:00 EDT Start Date: 02/05/20 Status: Orderedno sting skin prep spray no sting skin prep spray, See Instructions, # 1 bottle, Refills 11, Tot. Refills 11, Maintenance, use as needed for ostomy care. Dx ileostomy, 03/19/19 11:53:17 EDT, Compound Start Date: 03/19/19 Status: Orderedpantoprazole 40 mg oral delayed release tablet 1 tablet = 40 mg, By Mouth, Daily, # 90 tablet, 3 Refills, Maintenance, 03/12/20 12:21:00 EDT, EC Tablet, 163, cm, 02/26/20 14:14:00 EDT, Height, 53, kg, 02/25/20 14:10:00 EDT, Dry Weight Start Date: 03/12/20 Status: Orderedsize small, latex free gloves size [...] 04/30/19 16:26:56 EDT Start Date: 04/30/19 Status: OrderedTaras Grajeda, See Instructions, # 1 each, Refills 0, Tot. Refills 0, Maintenance, None, 02/08/20 10:19:00 EDT, Supply, 163, cm, 02/08/20 8:01:00 EDT, Height, 57, kg, 02/05/20 18:24:00 EDT, Dry Weight Start Date: 02/08/20 Status: Ordered Problem List Condition Effective Dates Status Health Status Informant Anxiety(Confirmed) Active Depression(Confirmed) Active Eating disorder(Confirmed) 2002 Active Fibromyalgia(Confirmed) Active Colonic inertia s/p total colectomy Active and ileostomy placement 10/2018(Confirmed) OCD (obsessive compulsive Active disorder)(Confirmed) Herniated lumbar intervertebral Active disc(Confirmed) Social History Social History Type Response Tobacco Use: 4 or less cigarettes(le ss than 1/4 pack)/day in last 30 days. Sex
--- OUTSIDE RECORDS SUMMARY | 2022-06-21 15:48 | XMS_ITS | Continuity of Care Document ---
:1985 Author Organization [facility] Address [address] [place] [id number]- Care Team Providers Name Role Phone Caroline Thapa MD Primary Care Physician Encounter [facility] [place] Date(s): 05/10/19 - 06/27/[address] [address] Attending Physician: Angi Hook MD Referring Physician: Angi Hook MD Allergies, Adverse Reactions, Alerts Substance Reaction [...] Stop Date: 08/28/19 Status: Orderedbrava bararier seals [id number] brava bararier seals [id number], See Instructions, # 20 units, Refills 11, Tot. Refills 11, Maintenance,use as needed for ostomy care. Dx. ileostomy, 03/19/19 11:54:35 EDT, Compound Start Date: 03/19/19 Status: OrderedClonazepam = 2 mg, By Mouth, Daily at bedtime, 0 Refills, Maintenance, 02/10/18 8:43:20 EDT Start Date: 02/10/18 Status: Orderedcoloplast 97539 coloplast 64914, See Instructions, # 20 each, Refills 11, Tot. Refills 11, Maintenance, use as needed for ostomy care Dx. ileostomy, 03/19/19 11:53:12 EDT, Compound Start Date: 03/19/19 Status: Orderedcoloplast 51555 coloplast 13488, See Instructions, # 20 each, Refills 11, [...] capsule 2 mg, 1, capsule, By Mouth, Every 4 hours, PRN, # 60 capsule, Refills 0, Maintenance, for loose stool, 04/30/19 16:25:37 EDT Start Date: 04/30/19 Status: Orderedno sting skin prep spray no [...]
--- OUTSIDE RECORDS SUMMARY | 2022-06-21 15:48 | XMS_ITS | Continuity of Care Document ---
:1985 Author Organization [facility] Address [address] [place] [address] Drive [address] [place] [address]- Care Team Providers Name Role Phone Elier RICHARDSON, Caroline Connolly Primary Care Physician Encounter [facility] [place] Date(s): 05/23/20 - 08/14/[address] [place] [id number] Attending Physician: Monster RICHARDSON, Angi Brooks Referring Physician: Caroline Thapa MD Allergies, Adverse Reactions, Alerts Substance Reaction Severity Status sulfa drugs hives Active Lamictal rash Active Thorazine thorat closes Active Topamax Active Buspar1 rash Active Geodon psychosis Active [...] Status: Orderedbethanechol 10 mg oral tablet 1 tablet, By Mouth, 3 times a day, # 90 tablet, 0 Refills, Acute, 07/31/20 8:52:00 EST, [facility][id number], 163, cm, 07/08/20 13:37:00 EST, Height, 50, kg, 05/08/20 13:34:00 EST, Dry Weight Start Date: 07/31/20 Status: Orderedbrava bararier seals [id number] brava bararier seals [id number], See Instructions, # 20 units, Refills 11, Tot. Refills 11, Maintenance,use as needed for ostomy care. Dx. ileostomy, 03/19/19 11:54:35 EDT, Compound Start Date: 03/19/19 Status: OrderedClonazepam = 2 mg, By Mouth, Daily at bedtime, 0 Refills, Maintenance, 02/10/18 8:43:20 EDT Start Date: 02/10/18 Status: Orderedcoloplast 48453 coloplast 88381, See Instructions, # 20 each, Refills 11, Tot. Refills 11, Maintenance, use as needed for ostomy care Dx. ileostomy, 03/19/19 11:53:12 EDT, Compound Start Date: 03/19/19 Status: Orderedcoloplast 44525 coloplast 79124, See Instructions, # 20 each, Refills 11, [...] 02/10/18 8:43:52 EDT Start Date: 02/10/18 Status: Orderedgabapentin 800 mg oral tablet 1 tablet = 800 mg, By Mouth, Daily at bedtime, 200mg in am; 200mg at noon and 800mg at hs, 0 Refills, Maintenance, 06/11/20 14:47:00 EST, Partial fill upon patient request if the prescription is for a schedule II opioid drug. Start Date: 06/11/20 Status: OrderedHYDROmorphone 2 mg oral tablet 1 tablet = 2 mg, By Mouth, 2 times a day, PRN as needed for pain, 0 Refills, Maintenance, 06/20/20 14:39:00 EST, Tablet, Partial fill upon patient request if the prescription is for a schedule II opioid drug. Start Date: 06/20/20 Status: Orderedloperamide 2 mg oral capsule 4 mg, 2, capsule, By Mouth, 3 times a day, for 30 days, take 1/2 hour before meals and at bed time, # 180 capsule, Refills 2, Tot. Refills 2, Acute 09/02/20 16:00:00 EST, 06/04/20 16:00:00 EST, Route to Pharmacy Electronically, [id number]... Start Date: 06/04/20 Stop Date: 09/02/20 Status: OrderedMultivitamin Daily, 0 Refills, Maintenance, 02/05/20 [...]
--- OUTSIDE RECORDS SUMMARY | 2022-06-21 15:48 | XMS_ITS | Continuity of Care Document ---
:1985 Author Organization [facility] Address [address] [place] [address]- Care Team Providers Name Role Phone Caroline Thapa MD Primary Care Physician Encounter [facility] Date(s): 12/18/19 - 12/18/[address] [address]- [facility] Discharge Disposition: A-D/C Home Attending Physician: Chidi Parkinson MD Admitting Physician: Chidi Parkinson MD Referring Physician: Chidi Parkinson MD Allergies, Adverse Reactions, Alerts Substance Reaction [...] 05/08/20 14:54:00 EST, 12/10/19 14:54:00 EDT, Tablet, [facility] #[id number], 165, cm, 12/04/19 10:31:00 EDT, Height, 55.1, kg, 11/17/19 3:58:00 EDT, Dry Weight Start Date: 12/10/19 Stop Date: 05/08/20 Status: Orderedbethanechol 5 mg oral tablet 1 tablet = 5 mg, By Mouth, 3 times a day, for 30 days, # 90 tablet, 3 Refills, Acute 02/27/20 16:14:00 EDT, 10/30/19 16:14:00 EDT, Tablet, [facility] #[id number], 130, cm, 09/07/19 16:17:00 EST, Height, 50.6, kg, 08/10/19 17:18:00 EST, Dry Weight Start Date: 10/30/19 Stop Date: 02/27/20 Status: Orderedbrava bararier seals [id number] brava bararier seals [id number], See Instructions, # 20 units, Refills 11, Tot. Refills 11, Maintenance,use as needed for ostomy care. Dx. ileostomy, 03/19/19 11:54:35 EDT, Compound Start Date: 03/19/19 Status: OrderedClonazepam = 2 mg, By Mouth, Daily at bedtime, 0 Refills, Maintenance, 02/10/18 8:43:20 EDT Start Date: 02/10/18 Status: Orderedcoloplast 55420 coloplast 61273, See Instructions, # 20 each, Refills 11, Tot. Refills 11, Maintenance, use as needed for ostomy care Dx. ileostomy, 03/19/19 11:53:12 EDT, Compound Start Date: 03/19/19 Status: Orderedcoloplast 08922 coloplast 25250, See Instructions, # 20 each, Refills 11, [...] 12/07/19 11:59:00 EDT Start Date: 12/07/19 Status: OrderedFlexeril 10 mg oral tablet 1, [...] 08/22/18 12:54:29 EST Start Date: 08/22/18 Status: OrderedIndoor/Outdoor Allergy Relief = 10 mg, By Mouth, Daily, 0 Refills, Maintenance, 12/07/19 12:00:00 EDT Start Date: 12/07/19 Status: OrderedMorphine Sulfate ADD-Manning 0 Refills, Maintenance, 12/07/19 12:00:00 EDT, Partial fill upon patient request Start Date: 12/07/19 Status: Orderedno sting skin prep spray no sting skin prep spray, See Instructions, # 1 bottle, Refills 11, Tot. Refills 11, Maintenance, use as needed for ostomy care. Dx ileostomy, 03/19/19 11:53:17 EDT, Compound Start Date: 03/19/19 Status: Orderedpantoprazole 40 mg oral delayed release tablet 1 tablet = 40 mg, By Mouth, Daily, # 90 tablet, 0 Refills, Maintenance, 12/18/19 10:39:00 EDT, EC Tablet, 165.1, cm, 12/18/19 9:25:00 EDT, Height, 55.1, kg, 11/17/19 3:58:00 EDT, Dry Weight Start Date: 12/18/19 Status: Orderedsize small, latex free gloves size [...] 11:53:05 EDT, Compound Start Date: 03/19/19 Status: OrderedSucrosate Sucrosate, 1, tablet, By Mouth, 4 times a day, Refills 0, Maintenance, 12/07/19 11:58:00 EDT, Supply Start Date: 12/07/19 Status: OrderedtraZODone 100 mg oral tablet 100 mg, 1, tablet, By Mouth, Daily at bedtime, Refills 0, Maintenance, 04/30/19 16:26:56 EDT Start Date: 04/30/19 Status: Ordered Problem List Condition Effective Dates Status Health Status Informant Anxiety(Confirmed) Active Depression(Confirmed) Active Eating disorder(Confirmed) 2003 Active Fibromyalgia(Confirmed) Active OCD (obsessive compulsive Active disorder)(Confirmed) Procedures Procedure Date Related Diagnosis Body Site Status Upper gastrointestinal endoscopy 12/18/19 Completed Vital Signs Most recent to oldest 1 2 3 [Reference Range]: Height 165.1 cm (12/18/19 9:25 AM) Weight 54.4 kg (12/18/19 9:25 AM) Oxygen Saturation [94-100 %] 99 % 95 % 100 % (12/18/19 10:49 AM) (12/18/19 10:39 AM) (12/18/19 9 :25 AM) Pulse Rate [55-90 bpm] 89 bpm (12/18/19 9:25 AM) Body Mass Index [18.5-24.99] 19.96 (12/18/19 9:25 AM) Blood Pressure [90-138/55-84 102/63 mm Hg 97/51 mm Hg 115 /87 mm Hg mm Hg] (12/18/19 10:49 AM) (12/18/19 10:39 AM) (12/18/19 9 :25 AM) Respiratory Rate [16-30 18 br/min 16 br/min 16 br/mi n br/min] (12/18/19 10:49 AM) (12/18/19 10:39 AM) (12/18/19 9 :25 AM) Temperature [96.8-100.4 DegF] 98.1 DegF (12/18/19 9:25 AM) Mode of Delivery (Oxygen) Room air Room air Room a ir (12/18/19 10:49 AM) (12/18/19 10:39 AM) (12/18/19 9 :25 AM) Temperature Route Temporal (12/18/19 9:25 AM) Social History Social History Type Response Tobacco Use: 4 or less cigarettes(le ss than 1/4 pack)/day in last 30 days. Sex
--- OUTSIDE RECORDS SUMMARY | 2022-06-21 15:48 | XMS_ITS | Continuity of Care Document ---
:1985 Author [facility] Address [address] [place] [address], [address] [place] [address]- Care Team Providers Name Role Phone Elier RICHARDSON, Caroline Connolly Primary Care Physician Encounter [facility] [place] Date(s): 08/05/20 - 09/04/20 [facility] [address] [place] [address]- Allergies, Adverse Reactions, Alerts Substance Reaction Severity [...] tablet, 0 Refills, Acute, 07/31/20 8:52:00 EST, [facility] #[id number], 163, cm, 07/08/20 13:37:00 EST, Height, 50, kg, 05/08/20 13:34:00 EST, Dry Weight Start Date: 07/31/20 Status: Orderedbrava bararier seals [id number] brava bararier seals [id number], See Instructions, # 20 units, Refills 11, Tot. Refills 11, Maintenance,use as needed for ostomy care. Dx. ileostomy, 03/19/19 11:54:35 EDT, Compound Start Date: 03/19/19 Status: OrderedClonazepam = 2 mg, By Mouth, Daily at bedtime, 0 Refills, Maintenance, 02/10/18 8:43:20 EDT Start Date: 02/10/18 Status: Orderedcoloplast 23787 coloplast 17400, See Instructions, # 20 each, Refills 11, Tot. Refills 11, Maintenance, use as needed for ostomy care Dx. ileostomy, 03/19/19 11:53:12 EDT, Compound Start Date: 03/19/19 Status: Orderedcoloplast 09717 coloplast 33087, See Instructions, # 20 each, Refills 11, [...] II opioid drug. Start Date: 06/20/20 Status: OrderedMultivitamin Daily, 0 Refills, Maintenance, 02/05/20 [...] 1/4 pack)/day in last 30 days. Sex Female
--- OUTSIDE RECORDS SUMMARY | 2022-06-21 15:48 | XMS_ITS | Continuity of Care Document ---
:1985 Author Organization [facility] Address [address] [place] [address], [address] [place] [address]- Care Team Providers Name Role Phone Elier RICHARDSON, Caroline Connolly Primary Care Physician Encounter [facility] [place] Date(s): 09/02/20 - 10/02/20 [facility] [address] [place] [address], [address] [place] [address]- Allergies, Adverse Reactions, Alerts Substance Reaction Severity [...] tablet, 0 Refills, Acute, 07/31/20 8:52:00 EST, [facility][id number], 163, cm, 07/08/20 13:37:00 EST, Height, 50, kg, 05/08/20 13:34:00 EST, Dry Weight Start Date: 07/31/20 Status: Orderedbethanechol 25 mg oral tablet 25 mg, 1, tablet, By Mouth, 3 times a day, for 30 days, # 90 tablet, Refills 4, Tot. Refills 4, Acute 02/13/21 14:38:00 EDT, 09/16/20 14:38:00 EDT, [facility]ically[id number], Partial fill upon patient request if the... Start Date: 09/16/20 Stop Date: 02/13/21 Status: Orderedbrava bararier seals [id number] brava bararier seals [id number], See Instructions, # 20 units, Refills 11, Tot. Refills 11, Maintenance,use as needed for ostomy care. Dx. ileostomy, 03/19/19 11:54:35 EDT, Compound Start Date: 03/19/19 Status: OrderedClonazepam = 2 mg, By Mouth, Daily at bedtime, 0 Refills, Maintenance, 02/10/18 8:43:20 EDT Start Date: 02/10/18 Status: Orderedcoloplast 53780 coloplast 28214, See Instructions, # 20 each, Refills 11, Tot. Refills 11, Maintenance, use as needed for ostomy care Dx. ileostomy, 03/19/19 11:53:12 EDT, Compound Start Date: 03/19/19 Status: Orderedcoloplast 00857 coloplast 67571, See Instructions, # 20 each, Refills 11, [...] 11:53:05 EDT, Compound Start Date: 03/19/19 Status: OrderedSuboxone 2 mg-0.5 mg sublingual film 1 film, Sublingual, Daily, 0 Refills, Maintenance, 09/16/20 14:28:00 EDT, Partial fill upon patient request if the prescription is for a schedule II opioid drug. Start Date: 09/16/20 Status: OrderedtraZODone 100 mg oral tablet 100 [...]
--- OUTSIDE RECORDS SUMMARY | 2022-06-21 15:48 | XMS_ITS | Continuity of Care Document ---
:1985 Author Organization [facility] Address [address] [place] [address]- Care Team Providers Name Role Phone Elier RICHARDSON, Caroline Connolly Primary Care Physician Encounter [facility] Date(s): 07/01/20 - 07/31/20 [facility] [address] [place] [id number] Allergies, Adverse Reactions, Alerts Substance Reaction Severity [...] tablet, 0 Refills, Acute, 07/31/20 8:52:00 EST, [facility] #[id number], 163, cm, 07/08/20 13:37:00 EST, Height, 50, kg, 05/08/20 13:34:00 EST, Dry Weight Start Date: 07/31/20 Status: Orderedbrava bararier seals [id number] brava bararier seals [id number], See Instructions, # 20 units, Refills 11, Tot. Refills 11, Maintenance,use as needed for ostomy care. Dx. ileostomy, 03/19/19 11:54:35 EDT, Compound Start Date: 03/19/19 Status: OrderedClonazepam = 2 mg, By Mouth, Daily at bedtime, 0 Refills, Maintenance, 02/10/18 8:43:20 EDT Start Date: 02/10/18 Status: Orderedcoloplast 65569 coloplast 40296, See Instructions, # 20 each, Refills 11, Tot. Refills 11, Maintenance, use as needed for ostomy care Dx. ileostomy, 03/19/19 11:53:12 EDT, Compound Start Date: 03/19/19 Status: Orderedcoloplast 07919 coloplast 10984, See Instructions, # 20 each, Refills 11, [...] 06/04/20 16:00:00 EST, Route to Pharmacy Electronically, [facility]... Start Date: 06/04/20 Stop Date: 09/02/20 [...]
--- OUTSIDE RECORDS SUMMARY | 2022-06-21 15:48 | XMS_ITS | Continuity of Care Document ---
:1985 Author Organization [facility] Address [address] [place] [address]- Care Team Providers Name Role Phone Elier RICHARDSON, Caroline Connolly Primary Care Physician Encounter [facility] [place] Date(s): 03/14/20 - 04/13/[address] [address]- [facility] Attending Physician: Jolynn Lobo Admitting Physician: AdmJolynn cruz Referring Physician: Admtr, Ar8 Allergies, Adverse Reactions, Alerts Substance Reaction Severity Status Geodon psychosis Active sulfa drugs hives Active Lamictal rash Active Thorazine thorat closes Active Buspar1 rash Active 1rash Immunizations Given and Recorded Vaccine [...] 05/08/20 14:54:00 EST, 12/10/19 14:54:00 EDT, Tablet, [facility] #[id number], 165, cm, 12/04/19 10:31:00 EDT, Height, 55.1, kg, 11/17/19 3:58:00 EDT, Dry Weight Start Date: 12/10/19 Stop Date: 05/08/20 Status: Orderedbrava bararier seals [id number] brava bararier seals [id number], See Instructions, # 20 units, Refills 11, Tot. Refills 11, Maintenance,use as needed for ostomy care. Dx. ileostomy, 03/19/19 11:54:35 EDT, Compound Start Date: 03/19/19 Status: OrderedClonazepam = 2 mg, By Mouth, Daily at bedtime, 0 Refills, Maintenance, 02/10/18 8:43:20 EDT Start Date: 02/10/18 Status: Orderedcoloplast 19991 coloplast 06154, See Instructions, # 20 each, Refills 11, Tot. Refills 11, Maintenance, use as needed for ostomy care Dx. ileostomy, 03/19/19 11:53:12 EDT, Compound Start Date: 03/19/19 Status: Orderedcoloplast 57730 coloplast 34635, See Instructions, # 20 each, Refills 11, [...]
--- OUTSIDE RECORDS SUMMARY | 2022-06-21 15:48 | XMS_ITS | Continuity of Care Document ---
:1985 Author Organization [facility] Address [address] [place] [phone]- Care Team Providers Name Role Phone Caroline Thapa MD Primary Care Physician Encounter [facility] Date(s): 05/21/21 - 05/21/[address] [address]- Discharge Disposition: A-D/C Home Attending Physician: Chance Jett MD Admitting Physician: Chance Jett MD Referring Physician: Not on Staff, Referring [...] 02/10/18 8:43:32 EDT Start Date: 02/10/18 Status: OrderedClonazepam = 2 mg, By Mouth, Daily at bedtime, 0 Refills, Maintenance, 02/10/18 8:43:20 EDT Start Date: 02/10/18 Status: OrderedDilaudid Inj 1 mg, Injection, IV Push Slowly, Once, STAT, 05/21/21 18:17:00 EST, Stop date 05/21/21 18:17:00 EST Start Date: 05/21/21 Stop Date: 05/21/21 Status: CompletedDilaudid Inj 1 mg, Injection, IV Push Slowly, Once, STAT, 05/21/21 20:53:00 EST, Stop date 05/21/21 20:53:00 EST Start Date: 05/21/21 Stop Date: 05/21/21 Status: Completedduloxetine 60 mg oral enteric coated capsule 1 capsule = 60 mg, By Mouth, Daily, # 90 capsule, 0 Refills, Maintenance, 01/13/21 1:59:00 EDT, EC Capsule, Partial fill upon patient request if the prescription is for a schedule II opioid drug. Start Date: 01/13/21 Status: Orderedgabapentin 800 mg oral tablet 1 tablet = 800 mg, By Mouth, Daily at bedtime, 200mg in am; 200mg at noon and 800mg at hs, 0 Refills, Maintenance, 06/11/20 14:47:00 EST, Partial fill upon patient request if the prescription is for a schedule II opioid drug. Start Date: 06/11/20 Status: OrderedLFT in a week, results to PCP LFT in a week, results to PCP, See Instructions, # 1 each, Refills 0, Tot. Refills 0, Maintenance, Lab test to be performed in a week, 01/13/21 13:15:00 EDT, Supply, 163, cm, 09/16/20 14:26:00 EDT, Height, 48.6, kg, 12/26/20 13:51:00 EDT, Dry Weight Start Date: 01/13/21 Status: Orderednitrofurantoin macrocrystals-monohydrate 100 mg oral capsule 1 capsule = 100 mg, By Mouth, 2 times a day, for 7 days, # 14 capsule, 0 Refills, Acute 05/28/21 21:12:00 EST, 05/21/21 21:12:00 EST, Capsule, [facility] #[id number], Partial fill upon patient request if the prescription is for a schedule II opio... Start Date: 05/21/21 Stop Date: 05/28/21 Status: OrderedReglan 5 mg oral tablet 1 tablet = 5 mg, By Mouth, 3 times a day before meals and bedtime, Take when you wake up, after lunch, and before bed., # 90 tablet, 6 Refills, Maintenance, 05/12/21 15:32:00 EST, [facility] #[id number], Partial fill upon patient request if the p... Start Date: 05/12/21 Status: OrderedSerum Magnesium levels in a week Serum Magnesium levels in a week, See Instructions, # 1 Unknown, Refills 0, Tot. Refills 0, Maintenance, Lab test to be performed in a week, 01/13/21 13:15:00 EDT, Supply, 163, cm, 09/16/20 14:26:00 EDT, Height, 48.6, kg, 12/26/20 13:51:00 EDT, Dry We... Start Date: 01/13/21 Status: OrderedtraZODone 100 mg oral tablet 100 mg, 1, tablet, By Mouth, Daily at bedtime, Refills 0, Maintenance, 04/30/19 16:26:56 EDT Start Date: 04/30/19 Status: Ordered Problem List Condition Effective Dates Status Health Status Informant Anxiety(Confirmed) Active Depression(Confirmed) Active Eating disorder(Confirmed) 2003 Active Transaminitis(Confirmed) Active Fibromyalgia(Confirmed) Active Opiate use(Confirmed) Active Hypotension(Confirmed) Active Metabolic alkalosis(Confirmed) Active Colonic inertia s/p total colectomy Active and ileostomy placement 10/2018(Confirmed) OCD (obsessive compulsive Active disorder)(Confirmed) Herniated lumbar intervertebral Active disc(Confirmed) Syncope and collapse(Confirmed) Active Vital Signs Most recent to oldest 1 2 3 [Reference Range]: Height 165 cm 165 cm (05/21/21 9:23 PM) (05/21/21 3:51 PM) Weight 54 kg (05/21/21 3:51 PM) Oxygen Saturation [94-100 %] 100 % 100 % 100 % (05/21/21 9:23 PM) (05/21/21 6:05 PM) (05/21/21 3:51 PM) Pulse Rate [55-90 bpm] 70 bpm 69 bpm 90 bpm (05/21/21 9:23 PM) (05/21/21 6:05 PM) (05/21/21 3:51 PM) Blood Pressure [90-138/55-84 124/92 mm Hg 126/83 mm Hg 125 /75 mm Hg mm Hg] (05/21/21 9:23 PM) (05/21/21 6:05 PM) (05/21/21 3:51 PM) Respiratory Rate [16-30 16 br/min 18 br/min 18 br/mi n br/min] (05/21/21 9:23 PM) (05/21/21 9:11 PM) (05/21/21 6:43 PM) Temperature [96.8-100.4 97.8 DegF 98.0 DegF DegF] (05/21/21 6:05 PM) (05/21/21 3:51 PM) Mode of Delivery (Oxygen) Room air Room air Room a ir (05/21/21 9:23 PM) (05/21/21 6:05 PM) (05/21/21 3:51 PM) Blood pressure sites Arm, right (05/21/21 9:23 PM) Temperature Route Oral Oral (05/21/21 6:05 PM) (05/21/21 3:51 PM) Dry Weight 54 kg (05/21/21 3:51 PM) Social History Social History Type Response Tobacco Use: 4 or less cigarettes(le ss than 1/4 pack)/day in last 30 days. Sex
--- OUTSIDE RECORDS SUMMARY | 2022-06-21 15:48 | XMS_ITS | Continuity of Care Document ---
:1985 Author Organization [facility] Address [address] [place] [address]- Care Team Providers Name Role Phone Caroline Thapa MD Primary Care Physician Encounter [facility] [place] ACCT R [id number] Date(s): 01/20/21 - 02/28/[address] [address]- Attending Physician: Caroline Thapa MD Admitting Physician: Caroline Thapa MD Referring Physician: Caroline Thapa MD Allergies, Adverse [...] 02/10/18 8:43:20 EDT Start Date: 02/10/18 Status: Orderedduloxetine 60 mg oral enteric coated capsule 1 capsule = 60 mg, By Mouth, Daily, # 90 capsule, 0 Refills, Maintenance, 01/13/21 1:59:00 EDT, EC Capsule, Partial fill upon patient request if the prescription is for a schedule II opioid drug. Start Date: 01/13/21 Status: Orderedferrous gluconate 324 mg oral tablet [...] EDT, Dry Weight Start Date: 01/13/21 Status: Orderedloperamide 2 mg oral tablet 2 tablet = 4 mg, By Mouth, 4 times a day, take 1/2 hour before meals and at bed time, # 240 tablet, 6 Refills, Maintenance, 11/17/20 12:53:00 EDT, [facility] #[id number], Partial fill upon patientrequest if the prescription is for a schedule II... Start Date: 11/17/20 Stop Date: 06/15/21 Status: Orderedpantoprazole 40 mg oral delayed release tablet 1 tablet = 40 mg, By Mouth, Daily, # 90 tablet, 3 Refills, Maintenance, 03/12/20 12:21:00 EDT, EC Tablet, 163, cm, 02/26/20 14:14:00 EDT, Height, 53, kg, 02/25/20 14:10:00 EDT, Dry Weight Start Date: 03/12/20 Status: OrderedReglan 10 mg oral tablet 0.5 tablet = 5 mg, By Mouth, 3 times a day with meals, for 30 days, # 45 tablet, 3 Refills, Acute 04/30/21 9:30:00 EDT, 12/31/20 9:30:00 EDT, Tablet, [email or web address][id number], Partial fill upon patient request if the prescription is for a schedule... Start Date: 12/31/20 Stop Date: 04/30/21 Status: OrderedSerum Magnesium levels in a week Serum Magnesium levels in a week, See Instructions, # 1 Unknown, Refills 0, Tot. Refills 0, Maintenance, Lab test to be performed in a week, 01/13/21 13:15:00 EDT, Supply, 163, cm, 09/16/20 14:26:00 EDT, Height, 48.6, kg, 12/26/20 13:51:00 EDT, Dry We... Start Date: 01/13/21 Status: OrderedSuboxone 2 mg-0.5 mg sublingual film [...] Active Depression(Confirmed) Active Eating disorder(Confirmed) 2002 Active Transaminitis(Confirmed) Active Fibromyalgia(Confirmed) Active Opiate use(Confirmed) Active Hypotension(Confirmed) Active Metabolic alkalosis(Confirmed) Active Colonic inertia s/p total colectomy Active and ileostomy placement 10/2018(Confirmed) OCD (obsessive compulsive Active disorder)(Confirmed) Herniated lumbar intervertebral Active disc(Confirmed) Syncope and collapse(Confirmed) Active Social History Social History Type Response Tobacco Use: 4 or less cigarettes(le ss than 1/4 pack)/day in last 30 days. Sex
--- OUTSIDE RECORDS SUMMARY | 2022-06-21 15:49 | XMS_ITS | Continuity of Care Document ---
:1985 Author Organization [facility] Address [address] [place] [address], [address] [place] [address]- Care Team Providers Name Role Phone Caroline Thapa MD Primary Care Physician Encounter [facility] [place] ACCT R [id number] Date(s): 12/24/19 - 02/20/20 [facility] [address] [place] [address], [address] [place] [address]- [facility] Attending Physician: Analisa Griffith MD Admitting Physician: Analisa Griffith MD Referring Physician: Caroline Thapa MD Allergies, [...] 05/08/20 14:54:00 EST, 12/10/19 14:54:00 EDT, Tablet, [facility] #[id number], 165, cm, 12/04/19 10:31:00 EDT, Height, 55.1, kg, 11/17/19 3:58:00 EDT, Dry Weight Start Date: 12/10/19 Stop Date: 05/08/20 Status: Orderedbrava bararier seals [id number] brava bararier seals [id number], See Instructions, # 20 units, Refills 11, Tot. Refills 11, Maintenance,use as needed for ostomy care. Dx. ileostomy, 03/19/19 11:54:35 EDT, Compound Start Date: 03/19/19 Status: OrderedClonazepam = 2 mg, By Mouth, Daily at bedtime, 0 Refills, Maintenance, 02/10/18 8:43:20 EDT Start Date: 02/10/18 Status: Orderedcoloplast 43093 coloplast 69943, See Instructions, # 20 each, Refills 11, Tot. Refills 11, Maintenance, use as needed for ostomy care Dx. ileostomy, 03/19/19 11:53:12 EDT, Compound Start Date: 03/19/19 Status: Orderedcoloplast 92691 coloplast 80040, See Instructions, # 20 each, Refills 11, [...] 04/30/19 16:19:34 EDT Start Date: 04/30/19 Status: Orderedibuprofen 600 mg oral tablet 600 mg, 1, tablet, By Mouth, 3 times a day, for 30 days, # 90 tablet, Refills 0, Tot. Refills 0, Acute 03/09/20 10:07:00 EDT, 02/08/20 10:07:00 EDT, Route to Pharmacy Electronically, [facility][id number], 163, cm, 02/08/20 8:01:00 EDT, Height,... Start Date: 02/08/20 Stop Date: 03/09/20 Status: OrderedIndoor/Outdoor Allergy Relief = 10 mg, [...] placement 10/2018(Confirmed) OCD (obsessive compulsive Active disorder)(Confirmed) Social History Social History Type Response Tobacco Use: 4 or less cigarettes(le ss than 1/4 pack)/day in last 30 days. Sex
--- OUTSIDE RECORDS SUMMARY | 2022-06-21 15:49 | XMS_ITS | Continuity of Care Document ---
:1985 Author Organization [facility] Address [address] [place] [address] Drive [address] [place] [address]- Care Team Providers Name Role Phone Elier RICHARDSON, Caroline Connolly Primary Care Physician Encounter [facility] Date(s): 06/04/20 - 07/04/[address] [place] [address] Allergies, Adverse Reactions, Alerts Substance Reaction Severity [...] day, # 90 tablet, 0 Refills, Acute, 06/23/20 16:47:00 EST, [facility] #[id number], 163, cm, 06/20/20 13:10:00 EST, Height, 50, kg, 05/08/20 13:34:00 EST, Dry Weight Start Date: 06/23/20 Status: Orderedbrava bararier seals [id number] brava bararier seals [id number], See Instructions, # 20 units, Refills 11, Tot. Refills 11, Maintenance,use as needed for ostomy care. Dx. ileostomy, 03/19/19 11:54:35 EDT, Compound Start Date: 03/19/19 Status: OrderedClonazepam = 2 mg, By Mouth, Daily at bedtime, 0 Refills, Maintenance, 02/10/18 8:43:20 EDT Start Date: 02/10/18 Status: Orderedcoloplast 52676 coloplast 16586, See Instructions, # 20 each, Refills 11, Tot. Refills 11, Maintenance, use as needed for ostomy care Dx. ileostomy, 03/19/19 11:53:12 EDT, Compound Start Date: 03/19/19 Status: Orderedcoloplast 50966 coloplast 06827, See Instructions, # 20 each, Refills 11, [...] 800 mg, By Mouth, Daily at bedtime, 0 Refills, Maintenance, 06/11/20 14:47:00 EST, Partial [...] 06/04/20 16:00:00 EST, Route to Pharmacy Electronically, [facility] Start Date: 06/04/20 Stop Date: [...] 04/30/19 16:26:56 EDT Start Date: 04/30/19 Status: Huan Grajeda, See Instructions, # 1 each, Refills [...]
--- OUTSIDE RECORDS SUMMARY | 2022-06-21 15:49 | XMS_ITS | Continuity of Care Document ---
:1985 Author Organization [address] [place] [address]- Care Team Providers Name Role Phone Caroline Thapa MD Primary Care Physician Encounter [facility] [place] Date(s): 07/24/19 - 07/31/[address] [place] [address]- [place] Encounter Diagnosis Colonic inertia (Discharge Diagnosis) - 07/24/19 Attending Physician: Marla GALLEGOS, Juani Solorio Referring Physician: Caroline Thapa MD Allergies, Adverse [...] Stop Date: 08/28/19 Status: Orderedbrava bararier seals [id number] brava bararier seals [id number], See Instructions, # 20 units, Refills 11, Tot. Refills 11, Maintenance,use as needed for ostomy care. Dx. ileostomy, 03/19/19 11:54:35 EDT, Compound Start Date: 03/19/19 Status: OrderedClonazepam = 2 mg, By Mouth, Daily at bedtime, 0 Refills, Maintenance, 02/10/18 8:43:20 EDT Start Date: 02/10/18 Status: Orderedcoloplast 39669 coloplast 14437, See Instructions, # 20 each, Refills 11, Tot. Refills 11, Maintenance, use as needed for ostomy care Dx. ileostomy, 03/19/19 11:53:12 EDT, Compound Start Date: 03/19/19 Status: Orderedcoloplast 90380 coloplast 40380, See Instructions, # 20 each, Refills 11, [...] Fibromyalgia(Confirmed) Active OCD (obsessive compulsive Active disorder)(Confirmed) Diagnosis Diagnosis Type Effective Dates Health Status Clinical In formant Service Colonic inertia Discharge 1/21/20 Diagnosis Vital Signs Most recent to oldest [Reference Range]: 1 Height 163 cm (07/24/19 10:42 AM) Temperature [96.8-100.4 DegF] 97.7 DegF (07/24/19 10:42 AM) Temperature Route Temporal (07/24/19 10:42 AM) Social History Social History Type Response Tobacco Use: 4 or less cigarettes(le ss than 1/4 pack)/day in last 30 days. Sex
--- OUTSIDE RECORDS SUMMARY | 2022-06-21 15:49 | XMS_ITS | Continuity of Care Document ---
:1985 Author Organization [facility] Address [address] [place] [address]- Care Team Providers Name Role Phone Elier RICHARDSON, Caroline Connolly Primary Care Physician [place] [facility] [place]/05/[place] - 02/08/[address] [address] [facility] Encounter Diagnosis Lower back pain (Final) - 02/05/20 Discharge Disposition: A-D/C Home Attending Physician: Glenis RICHARDSON, Jose Campa Admitting Physician: Billie RICHARDSON, Jenny Rodriguez Referring Physician: Not on Staff, Referring MD [...] 05/08/20 14:54:00 EST, 12/10/19 14:54:00 EDT, Tablet, [facility] #[id number], 165, cm, 12/04/19 10:31:00 EDT, Height, 55.1, kg, 11/17/19 3:58:00 EDT, Dry Weight Start Date: 12/10/19 Stop Date: 05/08/20 Status: Orderedbrava bararier seals [id number] brava bararier seals [id number], See Instructions, # 20 units, Refills 11, Tot. Refills 11, Maintenance,use as needed for ostomy care. Dx. ileostomy, 03/19/19 11:54:35 EDT, Compound Start Date: 03/19/19 Status: OrderedClonazepam = 2 mg, By Mouth, Daily at bedtime, 0 Refills, Maintenance, 02/10/18 8:43:20 EDT Start Date: 02/10/18 Status: Orderedcoloplast 34121 coloplast 34176, See Instructions, # 20 each, Refills 11, Tot. Refills 11, Maintenance, use as needed for ostomy care Dx. ileostomy, 03/19/19 11:53:12 EDT, Compound Start Date: 03/19/19 Status: Orderedcoloplast 96724 coloplast 27758, See Instructions, # 20 each, Refills 11, Tot. Refills 11, Maintenance, use as needed for ostomy care Dx. ileostomy, 03/19/19 11:53:15 EDT, Compound Start Date: 03/19/19 Status: OrderedCymbalta = 90 mg, By Mouth, Daily at bedtime, 0 Refills, 12/12/08 11:20:40 EDT Start Date: 12/12/08 Status: OrderedDilaudid 2 mg oral tablet See Instructions, PRN as needed for pain, One half to one tablet By Mouth Every 4 hours, # 20 tablet, 0 Refills, Acute 02/15/20 10:09:00 EDT, 02/08/20 10:09:00 EDT, Tablet, [facility] #[id number],Partial fill upon patient request, 163, cm, 02/07... Start Date: 02/08/20 Stop Date: 02/15/20 Status: OrderedDramamine Tablet 25 mg, By Mouth, [...] 02/08/20 10:07:00 EDT, Route to Pharmacy Electronically, [facility] #[id number], 163, cm, 02/08/20 8:01:00 EDT, Height,... Start [...] placement 10/2018(Confirmed) OCD (obsessive compulsive Active disorder)(Confirmed) Vital Signs Most recent to oldest [Reference 1 2 3 Range]: Height 163 cm 163 cm 163 cm (02/08/20 12:03 PM) (02/08/20 8:01 AM) (02/08/20 4:39 AM) Weight 57 kg (02/05/20 6:19 PM) Oxygen Saturation [94-100 %] 96 % 100 % 99 % (02/08/20 12:03 PM) (02/08/20 8:01 AM) (02/08/20 4:39 AM) Pulse Rate [55-90 bpm] 89 bpm 75 bpm 67 bpm (02/08/20 12:03 PM) (02/08/20 8:01 AM) (02/08/20 4:39 AM) Body Mass Index [18.5-24.99] 21.45 (02/05/20 6:19 PM) Blood Pressure [90-138/55-84 mm 138/90 mm Hg 114/60 mm Hg 109/67 mm Hg Hg] (02/08/20 12:03 PM) (02/08/20 8:01 AM) (02/08/20 4:39 AM) Respiratory Rate [16-30 br/min] 18 br/min 18 br/min 18 br/min (02/08/20 12:12 PM) (02/08/20 12:03 PM) (02/08/20 8:51 AM) Temperature [96.8-100.4 DegF] 97.7 DegF 97.7 DegF 97 .5 DegF (02/08/20 12:03 PM) (02/08/20 8:01 AM) (02/08/20 4:39 AM) Mode of Delivery (Oxygen) Room air Room air Room a ir (02/08/20 12:03 PM) (02/08/20 8:01 AM) (02/08/20 4:39 AM) Blood pressure sites Arm, left Arm, right Arm, right (02/08/20 12:03 PM) (02/08/20 8:01 AM) (02/08/20 4:39 AM) Temperature Route Oral Oral Oral (02/08/20 12:03 PM) (02/08/20 8:01 AM) (02/08/20 4:39 AM) Dry Weight 57 kg (02/05/20 6:19 PM) Weight Obtained Via UTO (02/04/20 12:59 PM) Dry Weight Obtained Via UTO (02/04/20 12:59 PM) Social History Social History Type Response Tobacco Use: 4 or less cigarettes(le ss than 1/4 pack)/day in last 30 days. Sex
--- OUTSIDE RECORDS SUMMARY | 2022-06-21 15:49 | XMS_ITS | Continuity of Care Document ---
:1985 Author Organization [facility] Address [address] [place] [address]- Care Team Providers Name Role Phone Caroline Thapa MD Primary Care Physician [place] [facility] [place] Date(s): 05/08/20 - 05/08/[address] [address] Discharge Disposition: A-D/C Home Attending Physician: Angi Hook MD Admitting Physician: Angi Hook MD Referring Physician: Angi [...] Start Date: 02/10/18 Status: Orderedbrava bararier seals [id number] brava bararier seals [id number], See Instructions, # 20 units, Refills 11, Tot. Refills 11, Maintenance,use as needed for ostomy care. Dx. ileostomy, 03/19/19 11:54:35 EDT, Compound Start Date: 03/19/19 Status: OrderedClonazepam = 2 mg, By Mouth, Daily at bedtime, 0 Refills, Maintenance, 02/10/18 8:43:20 EDT Start Date: 02/10/18 Status: Orderedcoloplast 34217 coloplast 15768, See Instructions, # 20 each, Refills 11, Tot. Refills 11, Maintenance, use as needed for ostomy care Dx. ileostomy, 03/19/19 11:53:12 EDT, Compound Start Date: 03/19/19 Status: Orderedcoloplast 36975 coloplast 54422, See Instructions, # 20 each, Refills 11, [...] Active disorder)(Confirmed) Herniated lumbar intervertebral Active disc(Confirmed) Vital Signs Most recent to oldest 1 2 3 [Reference Range]: Weight 50 kg (05/08/20 1:15 PM) Oxygen Saturation [94-100 %] 99 % 80 % 99 % (05/08/20 3:30 PM) *L* (05/08/20 3:00 PM) (05/08/20 3:15 PM) Pulse Rate [55-90 bpm] 64 bpm (05/08/20 1:15 PM) Blood Pressure [90-138/55-84 mm 113/63 mm Hg 113/63 mm Hg 98/37 mm Hg Hg] (05/08/20 3:30 PM) (05/08/20 3:15 PM) (05/08/20 3:0 0 PM) Respiratory Rate [16-30 br/min] 26 br/min 16 br/min 30 br/min (05/08/20 3:30 PM) (05/08/20 3:15 PM) (05/08/20 3:0 0 PM) Temperature [96.8-100.4 DegF] 98.3 DegF 97.8 DegF 96 .9 DegF (05/08/20 3:15 PM) (05/08/20 3:00 PM) (05/08/20 1:1 5 PM) Mode of Delivery (Oxygen) Room air Room air Room a ir (05/08/20 3:15 PM) (05/08/20 3:00 PM) (05/08/20 1:1 5 PM) Blood pressure sites Arm, left (05/08/20 1:15 PM) Temperature Route Temporal Temporal Temporal (05/08/20 3:15 PM) (05/08/20 3:00 PM) (05/08/20 1:1 5 PM) Dry Weight 50 kg (05/08/20 1:15 PM) Weight Obtained Via Standing scale (05/08/20 1:15 PM) Dry Weight Obtained Via Standing scale (05/08/20 1:15 PM) Social History Social History Type Response Tobacco Use: 4 or less cigarettes(le ss than 1/4 pack)/day in last 30 days. Sex
--- OUTSIDE RECORDS SUMMARY | 2022-06-21 15:49 | XMS_ITS | Continuity of Care Document ---
:1985 Author Organization [facility] Address [address] [place] [address]- Care Team Providers Name Role Phone Elier RICHARDSON, Caroline Connolly Primary Care Physician Encounter [facility] [place] Date(s): 03/20/20 - 04/19/20 [facility] [address] [place] [address]- [facility] Allergies, Adverse Reactions, Alerts Substance Reaction Severity [...] 05/08/20 14:54:00 EST, 12/10/19 14:54:00 EDT, Tablet, [facility] #[id number], 165, cm, 12/04/19 10:31:00 EDT, Height, 55.1, kg, 11/17/19 3:58:00 EDT, Dry Weight Start Date: 12/10/19 Stop Date: 05/08/20 Status: Orderedbrava bararier seals [id number] brava bararier seals [id number], See Instructions, # 20 units, Refills 11, Tot. Refills 11, Maintenance,use as needed for ostomy care. Dx. ileostomy, 03/19/19 11:54:35 EDT, Compound Start Date: 03/19/19 Status: OrderedClonazepam = 2 mg, By Mouth, Daily at bedtime, 0 Refills, Maintenance, 02/10/18 8:43:20 EDT Start Date: 02/10/18 Status: Orderedcoloplast 31386 coloplast 94345, See Instructions, # 20 each, Refills 11, Tot. Refills 11, Maintenance, use as needed for ostomy care Dx. ileostomy, 03/19/19 11:53:12 EDT, Compound Start Date: 03/19/19 Status: Orderedcoloplast 49946 coloplast 69526, See Instructions, # 20 each, Refills 11, [...]
--- OUTSIDE RECORDS SUMMARY | 2022-06-21 15:49 | XMS_ITS | Continuity of Care Document ---
:1985 Author Organization [facility] Address [address] [place] [address]- Care Team Providers Name Role Phone Caroline Thapa MD Primary Care Physician [place] [facility] [place]/16/21 - 03/16/[address] [address]- Encounter Diagnosis Opiate withdrawal (Final) - 03/16/21 Discharge Disposition: A-D/C Home Attending Physician: Seamus Ayala MD Admitting Physician: Seamus Ayala MD Referring Physician: Not on Staff, Referring [...] tablet, 6 Refills, Maintenance, 11/17/20 12:53:00 EDT, [facility] #[id number], Partial fill upon patientrequest if the prescription [...] 04/30/21 9:30:00 EDT, 12/31/20 9:30:00 EDT, Tablet, [facility] #[id number], Partial fill upon patient request if the [...] mg sublingual film 1 film, Sublingual, Daily, # 30 film, 0 Refills, Maintenance, 03/16/21 18:17:00 EDT, Film, [id number], Partial fill upon patient request if the prescription is for a schedule II opioiddrug., 1 film Sublingual Daily, 163, cm, 03/16/21... Start Date: 03/16/21 Status: OrderedtraZODone 100 mg oral tablet 100 [...] Active Vital Signs Most recent to oldest [Reference Range]: 1 2 Height 163 cm (03/16/21 3:02 PM) Weight 53 kg 53 kg (03/16/21 3:02 PM) (03/16/21 3:00 PM) Oxygen Saturation [94-100 %] 98 % 98 % (03/16/21 6:30 PM) (03/16/21 3:00 PM) Pulse Rate [55-90 bpm] 67 bpm 97 bpm (03/16/21 6:30 PM) *H* (03/16/21 3:00 PM) Blood Pressure [90-138/55-84 mm Hg] 155/96 mm Hg 135/ 94 mm Hg *H* (03/16/21 3:00 PM) (03/16/21 6:30 PM) Respiratory Rate [16-30 br/min] 16 br/min 18 br/mi n (03/16/21 6:30 PM) (03/16/21 3:00 PM) Temperature [96.8-100.4 DegF] 98.2 DegF (03/16/21 6:30 PM) Mode of Delivery (Oxygen) Room air (03/16/21 3:00 PM) Temperature Route Oral (03/16/21 6:30 PM) Dry Weight 53 kg (03/16/21 3:02 PM) Social History Social History Type Response Tobacco Use: 4 or less cigarettes(le ss than 1/4 pack)/day in last 30 days. Sex
--- OUTSIDE RECORDS SUMMARY | 2022-06-21 15:49 | XMS_ITS | Continuity of Care Document ---
:1985 Author Organization [facility] Address Unavailable , Care Team Providers Name Role Phone Caroline Thapa MD Primary Care Physician Encounter [facility] [place] Date(s): 08/12/21 - 12/10/21 [facility] Attending Physician: Angi Hook MD Referring Physician: Caroline Thapa MD Allergies, Adverse Reactions, Alerts Substance Reaction Severity Status sulfa drugs hives Active Geodon psychosis Active Lamictal rash Active Thorazine thorat closes Active Topamax Active Buspar1 rash Active 1rash Immunizations Given [...] EDT, Dry Weight Start Date: 01/13/21 Status: OrderedReglan 5 mg oral tablet 1 tablet = 5 mg, By Mouth, 3 times a day before meals and bedtime, Take when you wake up, after lunch, and before bed., # 90 tablet, 6 Refills, Maintenance, 05/12/21 15:32:00 [facility], [facility] #[id number], Partial fill upon patient request if the [...]
--- OUTSIDE RECORDS SUMMARY | 2022-06-21 15:49 | XMS_ITS | Continuity of Care Document ---
:1985 Author Organization [facility] Address [address] [place] [address]- Care Team Providers Name Role Phone Elier RICHARDSON, Caroline Connolly Primary Care Physician Encounter [facility] [place] Date(s): 02/11/20 - 03/29/20 [facility] [address] [place] [address] [facility] Attending Physician: Channing Armenta MD Admitting Physician: Channing Armenta MD Allergies, Adverse Reactions, Alerts Substance Reaction [...] 05/08/20 14:54:00 EST, 12/10/19 14:54:00 EDT, Tablet, [facility] #[id number], 165, cm, 12/04/19 10:31:00 EDT, Height, 55.1, kg, 11/17/19 3:58:00 EDT, Dry Weight Start Date: 12/10/19 Stop Date: 05/08/20 Status: Orderedbrava bararier seals [id number] brava bararier seals [id number], See Instructions, # 20 units, Refills 11, Tot. Refills 11, Maintenance,use as needed for ostomy care. Dx. ileostomy, 03/19/19 11:54:35 EDT, Compound Start Date: 03/19/19 Status: OrderedClonazepam = 2 mg, By Mouth, Daily at bedtime, 0 Refills, Maintenance, 02/10/18 8:43:20 EDT Start Date: 02/10/18 Status: Orderedcoloplast 69672 coloplast 28407, See Instructions, # 20 each, Refills 11, Tot. Refills 11, Maintenance, use as needed for ostomy care Dx. ileostomy, 03/19/19 11:53:12 EDT, Compound Start Date: 03/19/19 Status: Orderedcoloplast 40819 coloplast 91354, See Instructions, # 20 each, Refills 11, [...]
--- OUTSIDE RECORDS SUMMARY | 2022-06-21 15:49 | XMS_ITS | Continuity of Care Document ---
:1985 Author Organization [facility] Address Unavailable , Care Team Providers Name Role Phone Caroline Thapa MD Primary Care Physician [place] [facility] [place] Date(s): 11/10/21 - 02/18/22 [facility] Attending Physician: Angi Hook MD Referring [...] 02/10/18 8:43:32 EDT Start Date: 02/10/18 Status: OrderedCatheter Supplies See Instructions, # 210 each, Maintenance, Perform straight catheterization as needed up to 7 times daily, 02/17/22 13:43:00 EDT, DX code: R33.9, Supply Start Date: 02/17/22 Status: OrderedClonazepam = 2 mg, By Mouth, [...] tablet, 6 Refills, Maintenance, 05/12/21 15:32:00 EST, [facility] #[id number], Partial fill upon patient request if the [...]
--- OUTSIDE RECORDS SUMMARY | 2022-06-21 15:49 | XMS_ITS | Continuity of Care Document ---
:1985 Author Organization [facility] Address [address] [place] [address] [place] [address]- Care Team Providers Name Role Phone Elier RICHARDSON, Caroline Connolly Primary Care Physician Encounter [facility] [place] Date(s): 02/08/20 - 03/09/[address] [place] [address] [facility] Attending Physician: Jolynn Lobo Admitting Physician: [...] 05/08/20 14:54:00 EST, 12/10/19 14:54:00 EDT, Tablet, [facility] #[id number], 165, cm, 12/04/19 10:31:00 EDT, Height, 55.1, kg, 11/17/19 3:58:00 EDT, Dry Weight Start Date: 12/10/19 Stop Date: 05/08/20 Status: Orderedbrava bararier seals [id number] brava bararier seals [id number], See Instructions, # 20 units, Refills 11, Tot. Refills 11, Maintenance,use as needed for ostomy care. Dx. ileostomy, 03/19/19 11:54:35 EDT, Compound Start Date: 03/19/19 Status: OrderedClonazepam = 2 mg, By Mouth, Daily at bedtime, 0 Refills, Maintenance, 02/10/18 8:43:20 EDT Start Date: 02/10/18 Status: Orderedcoloplast 87584 coloplast 02986, See Instructions, # 20 each, Refills 11, Tot. Refills 11, Maintenance, use as needed for ostomy care Dx. ileostomy, 03/19/19 11:53:12 EDT, Compound Start Date: 03/19/19 Status: Orderedcoloplast 82041 coloplast 85562, See Instructions, # 20 each, Refills 11, [...]
--- OUTSIDE RECORDS SUMMARY | 2022-06-21 15:49 | XMS_ITS | Continuity of Care Document ---
:1985 Author Organization [facility] Address Unavailable , Care Team Providers Name Role Phone Caroline Thapa MD Primary Care Physician [place] [facility] [place]12[place]21 [place] 05/19/21 [facility] Attending Physician: Angi Hook MD Referring [...] tablet, 6 Refills, Maintenance, 11/17/20 12:53:00 EDT, [facility] #[id number], Partial fill upon patientrequest if the prescription is for a schedule II... Start Date: 11/17/20 Stop Date: 06/15/21 Status: Orderedloperamide 2 mg oral tablet 2 tablet = 4 mg, By Mouth, Every 6 hours, Take 30 minutes before meals and before bed, # 240 tablet,11 Refills, Maintenance, 05/12/21 15:32:00 EST, [facility] #[id number], Partial fill upon patient request if the prescription is for a schedule I... Start Date: 05/12/21 Status: Orderedpantoprazole 40 mg oral delayed release tablet 1 tablet = 40 mg, By Mouth, Daily, # 90 tablet, 3 Refills, Maintenance, 03/12/20 12:21:00 EDT, [facility] Tablet, 163, cm, 02/26/20 14:14:00 EDT, Height, 53, kg, 02/25/20 14:10:00 EDT, Dry Weight Start Date: 03/12/20 Status: OrderedReglan 5 mg oral tablet 1 tablet = 5 mg, By Mouth, 3 times a day before meals and bedtime, Take when you wake up, after lunch, and before bed., # 90 tablet, 6 Refills, Maintenance, 05/12/21 15:32:00 EST, [facility] #[id number], Partial fill upon patient request if the [...] 0 Refills, Maintenance, 03/16/21 18:17:00 EDT, Film, [facility] #[id number], Partial fill upon patient request if the [...] oldest [Reference Range]: 1 Height 163 cm (05/12/21 2:45 PM) Weight 54.4 kg (05/12/21 2:45 PM) Pulse Rate [55-90 bpm] 80 bpm (05/12/21 2:45 PM) Body Mass Index [18.5-24.99] 20.47 (05/12/21 2:45 PM) Blood Pressure [90-138/55-84 mm Hg] 113/73 mm Hg (05/12/21 2:45 PM) Respiratory Rate [16-30 br/min] 17 br/min (05/12/21 2:45 PM) Temperature Route Temporal (05/12/21 2:45 PM) Social History Social History Type Response Tobacco Use: 4 or less cigarettes(le ss than 1/4 pack)/day in last 30 days. Sex
--- OUTSIDE RECORDS SUMMARY | 2022-06-21 15:49 | XMS_ITS | Continuity of Care Document ---
:1985 Author Organization [facility] Address [address] [place] [address]- Care Team Providers Name Role Phone Elier RICHARDSON, Caroline Connolly Primary Care Physician Encounter [facility] [place] Date(s): 07/29/20 - 08/28/20 [facility] [address] [place] [address] Attending Physician: Jolynn Lobo Admitting Physician: AdmJolynn cruz Referring Physician: AdmtrJolynn Allergies, Adverse Reactions, Alerts Substance Reaction Severity [...] tablet, 0 Refills, Acute, 07/31/20 8:52:00 EST, [facility] #[id number], 163, cm, 07/08/20 13:37:00 EST, Height, 50, kg, 05/08/20 13:34:00 EST, Dry Weight Start Date: 07/31/20 Status: Orderedbrava bararier seals [id number] brava bararier seals [id number], See Instructions, # 20 units, Refills 11, Tot. Refills 11, Maintenance,use as needed for ostomy care. Dx. ileostomy, 03/19/19 11:54:35 EDT, Compound Start Date: 03/19/19 Status: OrderedClonazepam = 2 mg, By Mouth, Daily at bedtime, 0 Refills, Maintenance, 02/10/18 8:43:20 EDT Start Date: 02/10/18 Status: Orderedcoloplast 54404 coloplast 14382, See Instructions, # 20 each, Refills 11, Tot. Refills 11, Maintenance, use as needed for ostomy care Dx. ileostomy, 03/19/19 11:53:12 EDT, Compound Start Date: 03/19/19 Status: Orderedcoloplast 58799 coloplast 21789, See Instructions, # 20 each, Refills 11, [...] 06/04/20 16:00:00 EST, Route to Pharmacy Electronically, [facility]... Start Date: 06/04/20 Stop [...]
--- OUTSIDE RECORDS SUMMARY | 2022-06-21 15:49 | XMS_ITS | Continuity of Care Document ---
:1985 Author Organization [facility] Address [address] [place] [address] Drive [address] [place] [address]- Care Team Providers Name Role Phone Elier RICHARDSON, Caroline Connolly Primary Care Physician Encounter [facility] Date(s): 05/16/20 - 06/15/[address] [place] [address]- Allergies, Adverse Reactions, Alerts Substance Reaction Severity [...] Start Date: 02/10/18 Status: Orderedbrava bararier seals [id number] brava bararier seals [id number], See Instructions, # 20 units, Refills 11, Tot. Refills 11, Maintenance,use as needed for ostomy care. Dx. ileostomy, 03/19/19 11:54:35 EDT, Compound Start Date: 03/19/19 Status: OrderedClonazepam = 2 mg, By Mouth, Daily at bedtime, 0 Refills, Maintenance, 02/10/18 8:43:20 EDT Start Date: 02/10/18 Status: Orderedcoloplast 00620 coloplast 34475, See Instructions, # 20 each, Refills 11, Tot. Refills 11, Maintenance, use as needed for ostomy care Dx. ileostomy, 03/19/19 11:53:12 EDT, Compound Start Date: 03/19/19 Status: Orderedcoloplast 90165 coloplast 42860, See Instructions, # 20 each, Refills 11, [...] II opioid drug. Start Date: 06/11/20 Status: Orderedloperamide 2 mg oral capsule 4 mg, 2, capsule, By Mouth, 3 times a day, for 30 days, take 1/2 hour before meals and at bed time, # 180 capsule, Refills 2, Tot. Refills 2, Acute 09/02/20 16:00:00 EST, 06/04/20 16:00:00 EST, Route to Pharmacy Electronically, [facility] Start Date: 06/04/20 Stop [...]
--- OUTSIDE RECORDS SUMMARY | 2022-06-21 15:49 | XMS_ITS | Continuity of Care Document ---
:1985 Author Organization [facility] Address [address] [place] [address], [address] [place] [address]- Care Team Providers Name Role Phone Elier RICHARDSON, Caroline Connolly Primary Care Physician En[place] [facility] [place] Date(s): 09/16/20 - 10/16/20 [facility] [address], [address] [place] [address]- Attending Physician: Jolynn Lobo Admitting Physician: Jolynn Lobo Referring Physician: AdmtrJolynn Allergies, Adverse Reactions, Alerts [...] tablet, 0 Refills, Acute, 07/31/20 8:52:00 EST, [facility] #[id number], 163, cm, 07/08/20 13:37:00 EST, Height, 50, kg, 05/08/20 13:34:00 EST, Dry Weight Start Date: 07/31/20 Status: Orderedbethanechol 25 mg oral tablet 25 mg, 1, tablet, By Mouth, 3 times a day, for 30 days, # 90 tablet, Refills 4, Tot. Refills 4, Acute 02/13/21 14:38:00 EDT, 09/16/20 14:38:00 EDT, Route to Pharmacy Electronically, [facility] #[id number], Partial fill upon patient request if the... Start Date: 09/16/20 Stop Date: 02/13/21 Status: Orderedbrava bararier seals [id number] brava bararier seals [id number], See Instructions, # 20 units, Refills 11, Tot. Refills 11, Maintenance,use as needed for ostomy care. Dx. ileostomy, 03/19/19 11:54:35 EDT, Compound Start Date: 03/19/19 Status: OrderedClonazepam = 2 mg, By Mouth, Daily at bedtime, 0 Refills, Maintenance, 02/10/18 8:43:20 EDT Start Date: 02/10/18 Status: Orderedcoloplast 41397 coloplast 36376, See Instructions, # 20 each, Refills 11, Tot. Refills 11, Maintenance, use as needed for ostomy care Dx. ileostomy, 03/19/19 11:53:12 EDT, Compound Start Date: 03/19/19 Status: Orderedcoloplast 65157 coloplast 24120, See Instructions, # 20 each, Refills 11, [...]
--- OUTSIDE RECORDS SUMMARY | 2022-06-21 15:49 | XMS_ITS | Continuity of Care Document ---
:1985 Author Organization [facility] [employer] Address [address] [place] [address], [address] [place] [address]- Care Team Providers Name Role Phone Elier RICHARDSON, Caroline Connolly Primary Care Physician [place] [facility] [place] [facility] [place]): [place]/09/20 - 05/09/20 [facility] [address] [place] [address], [address] [place] [address]- Allergies, Adverse Reactions, Alerts Substance Reaction Severity [...] Start Date: 02/10/18 Status: Orderedbrava bararier seals [id number] brava bararier seals [id number], See Instructions, # 20 units, Refills 11, Tot. Refills 11, Maintenance,use as needed for ostomy care. Dx. ileostomy, 03/19/19 11:54:35 EDT, Compound Start Date: 03/19/19 Status: OrderedClonazepam = 2 mg, By Mouth, Daily at bedtime, 0 Refills, Maintenance, 02/10/18 8:43:20 EDT Start Date: 02/10/18 Status: Orderedcoloplast 65177 coloplast 30723, See Instructions, # 20 each, Refills 11, Tot. Refills 11, Maintenance, use as needed for ostomy care Dx. ileostomy, 03/19/19 11:53:12 EDT, Compound Start Date: 03/19/19 Status: Orderedcoloplast 22294 coloplast 78673, See Instructions, # 20 each, Refills 11, [...]
--- OUTSIDE RECORDS SUMMARY | 2022-06-21 15:49 | XMS_ITS | Continuity of Care Document ---
:1985 Author Organization [facility] Address [address] [place] [address]- Care Team Providers Name Role Phone Elier RICHARDSON, Caroline Connolly Primary Care Physician Encounter [facility] [place] Date(s): 02/18/20 - 03/19/20 [facility] [address] [place] [address]- [facility] Allergies, Adverse Reactions, Alerts Substance Reaction Severity [...] 05/08/20 14:54:00 EST, 12/10/19 14:54:00 EDT, Tablet, [facility] #[id number], 165, cm, 12/04/19 10:31:00 EDT, Height, 55.1, kg, 11/17/19 3:58:00 EDT, Dry Weight Start Date: 12/10/19 Stop Date: 05/08/20 Status: Orderedbrava bararier seals [id number] brava bararier seals [id number], See Instructions, # 20 units, Refills 11, Tot. Refills 11, Maintenance,use as needed for ostomy care. Dx. ileostomy, 03/19/19 11:54:35 EDT, Compound Start Date: 03/19/19 Status: OrderedClonazepam = 2 mg, By Mouth, Daily at bedtime, 0 Refills, Maintenance, 02/10/18 8:43:20 EDT Start Date: 02/10/18 Status: Orderedcoloplast 83783 coloplast 80982, See Instructions, # 20 each, Refills 11, Tot. Refills 11, Maintenance, use as needed for ostomy care Dx. ileostomy, 03/19/19 11:53:12 EDT, Compound Start Date: 03/19/19 Status: Orderedcoloplast 85305 coloplast 66703, See Instructions, # 20 each, Refills 11, [...]
--- OUTSIDE RECORDS SUMMARY | 2022-06-21 15:49 | XMS_ITS | Continuity of Care Document ---
:1985 Author Organization [facility] Address [address] [place] [address], [address] [place] [address]- Care Team Providers Name Role Phone Elier RICHARDSON, Caroline Connolly Primary Care Physician Encounter [facility] [place] Date(s): 07/09/20 - 08/14/20 [facility] [address] [place] [address], [address] [place] [address]- Attending Physician: Analisa Griffith MD Allergies, Adverse Reactions, Alerts Substance Reaction [...] tablet, 0 Refills, Acute, 07/31/20 8:52:00 EST, [facility] #[id number], 163, cm, 07/08/20 13:37:00 EST, Height, 50, kg, 05/08/20 13:34:00 EST, Dry Weight Start Date: 07/31/20 Status: Orderedbrava bararier seals [id number] brava bararier seals [id number], See Instructions, # 20 units, Refills 11, Tot. Refills 11, Maintenance,use as needed for ostomy care. Dx. ileostomy, 03/19/19 11:54:35 EDT, Compound Start Date: 03/19/19 Status: OrderedClonazepam = 2 mg, By Mouth, Daily at bedtime, 0 Refills, Maintenance, 02/10/18 8:43:20 EDT Start Date: 02/10/18 Status: Orderedcoloplast 24264 coloplast 82525, See Instructions, # 20 each, Refills 11, Tot. Refills 11, Maintenance, use as needed for ostomy care Dx. ileostomy, 03/19/19 11:53:12 EDT, Compound Start Date: 03/19/19 Status: Orderedcoloplast 37691 coloplast 32877, See Instructions, # 20 each, Refills 11, [...] 06/04/20 16:00:00 EST, Route to Pharmacy Electronically, [facility]... Start Date: 06/04/20 Stop Date: 09/02/20 [...]
--- OUTSIDE RECORDS SUMMARY | 2022-06-21 15:49 | XMS_ITS | Continuity of Care Document ---
:1985 Author Organization [facility] Address [address] [place] [address] [place] [address]- Care Team Providers Name Role Phone Elier RICHARDSON, Caroline Connolly Primary Care Physician Encounter [facility] [place] Date(s): 05/16/20 - 08/31/[address] [place] [address]- Attending Physician: Angi Hook MD Allergies, Adverse Reactions, [...] tablet, 0 Refills, Acute, 07/31/20 8:52:00 EST, [facility] #[id number], 163, cm, 07/08/20 13:37:00 EST, Height, 50, kg, 05/08/20 13:34:00 EST, Dry Weight Start Date: 07/31/20 Status: Orderedbrava bararier seals [id number] brava bararier seals [id number], See Instructions, # 20 units, Refills 11, Tot. Refills 11, Maintenance,use as needed for ostomy care. Dx. ileostomy, 03/19/19 11:54:35 EDT, Compound Start Date: 03/19/19 Status: OrderedClonazepam = 2 mg, By Mouth, Daily at bedtime, 0 Refills, Maintenance, 02/10/18 8:43:20 EDT Start Date: 02/10/18 Status: Orderedcoloplast 60456 coloplast 28385, See Instructions, # 20 each, Refills 11, Tot. Refills 11, Maintenance, use as needed for ostomy care Dx. ileostomy, 03/19/19 11:53:12 EDT, Compound Start Date: 03/19/19 Status: Orderedcoloplast 82285 coloplast 06470, See Instructions, # 20 each, Refills 11, [...] 06/04/20 16:00:00 EST, Route to Pharmacy Electronically, [facility]... Start Date: 06/04/20 Stop Date: 09/02/20 [...]
--- OUTSIDE RECORDS SUMMARY | 2022-06-21 15:49 | XMS_ITS | Continuity of Care Document ---
:1985 Author Organization [facility] Address Unavailable , Care Team Providers Name Role Phone Caroline Thapa MD Primary Care Physician [place] [facility] [place] Date(s): 01/13/21 - 02/21/21 [facility] Attending Physician: Angi Hook MD Referring [...] tablet, 6 Refills, Maintenance, 11/17/20 12:53:00 EDT, [facility] #[id number], Partial fill upon patientrequest if the prescription [...] 04/30/21 9:30:00 EDT, 12/31/20 9:30:00 EDT, Tablet, [facility] #[id number], Partial fill upon patient request if the [...]
--- OUTSIDE RECORDS SUMMARY | 2022-06-21 15:49 | XMS_ITS | Continuity of Care Document ---
:1985 Author Organization [facility] Address Unavailable , Care Team Providers Name Role Phone Caroline Thapa MD Primary Care Physician Encounter [facility] [place] Date(s): 11/10/21 - 12/10/21 [facility] Attending Physician: Jolynn Lobo Admitting Physician: Jolynn Lobo Referring Physician: Jolynn Lobo Allergies, Adverse Reactions, Alerts Substance Reaction Severity Status sulfa drugs hives Active Buspar1 rash Active Geodon psychosis Active Lamictal rash Active Thorazine thorat closes Active Topamax Active 1rash Immunizations Given and Recorded Vaccine [...] tablet, 6 Refills, Maintenance, 05/12/21 15:32:00 EST, [facility] #[id number], Partial fill upon patient request if the [...]
--- OUTSIDE RECORDS SUMMARY | 2022-06-21 15:49 | XMS_ITS | Continuity of Care Document ---
:1985 Author Organization [facility] Address [address] [place] [address], [address] [place] [address]- Care Team Providers Name Role Phone Elier RICHARDSON, Caroline Connolly Primary Care Physician [place] [facility] [place] 03/27/20 - 04/26/[address], [address] [place] [address]- [facility] Attending Physician: Jolynn Lobo Admitting [...] 05/08/20 14:54:00 EST, 12/10/19 14:54:00 EDT, Tablet, [facility] #[id number], 165, cm, 12/04/19 10:31:00 EDT, Height, 55.1, kg, 11/17/19 3:58:00 EDT, Dry Weight Start Date: 12/10/19 Stop Date: 05/08/20 Status: Orderedbrava bararier seals [id number] brava bararier seals [id number], See Instructions, # 20 units, Refills 11, Tot. Refills 11, Maintenance,use as needed for ostomy care. Dx. ileostomy, 03/19/19 11:54:35 EDT, Compound Start Date: 03/19/19 Status: OrderedClonazepam = 2 mg, By Mouth, Daily at bedtime, 0 Refills, Maintenance, 02/10/18 8:43:20 EDT Start Date: 02/10/18 Status: Orderedcoloplast 98469 coloplast 64254, See Instructions, # 20 each, Refills 11, Tot. Refills 11, Maintenance, use as needed for ostomy care Dx. ileostomy, 03/19/19 11:53:12 EDT, Compound Start Date: 03/19/19 Status: Orderedcoloplast 64700 coloplast 91169, See Instructions, # 20 each, Refills 11, [...]
--- OUTSIDE RECORDS SUMMARY | 2022-06-21 15:50 | XMS_ITS | Continuity of Care Document ---
:1985 Author Organization [facility] Address [address] [place], [place] [address]- Care Team Providers Name Role Phone Caroline Thapa MD Primary Care Physician En[place] [facility] [place] [id number] Date(s): 02/27/21 - 03/06/21 [facility] [address] [address]- Attending Physician: Caroline Thapa MD Admitting Physician: [...] tablet, 6 Refills, Maintenance, 11/17/20 12:53:00 EDT, [facility] #[id number], Partial fill upon patientrequest if the prescription [...] 04/30/21 9:30:00 EDT, 12/31/20 9:30:00 EDT, Tablet, [facility] #[id number], Partial fill upon patient request if the [...]
--- OUTSIDE RECORDS SUMMARY | 2022-06-21 15:50 | XMS_ITS | Continuity of Care Document ---
:1985 Author Organization [facility] Address [address] [place] [address]- Care Team Providers Name Role Phone Caroline Thapa MD Primary Care Physician Encounter [facility] [place] Date(s): 04/20/21 - 04/20/[address] [address]- Discharge Disposition: A-D/C Walkout Attending Physician: Not on Staff, Attending MD Admitting Physician: Not on Staff, Admitting MD Referring Physician: Not on Staff, Referring MD Allergies, Adverse Reactions, Alerts Substance Reaction Severity Status sulfa drugs hives Active Lamictal rash Active Thorazine thorat closes Active Topamax Active Geodon psychosis Active Buspar1 rash Active 1rash Immunizations Given [...] opioid drug. Start Date: 06/11/20 Status: OrderedHYDROmorphone Inj 0.5 mg, Injection, IV Push Slowly, STAT, 04/20/21 16:50:00 EDT Start Date: 04/20/21 Stop Date: 04/20/21 Status: CompletedLFT in a week, results to PCP LFT [...] tablet, 6 Refills, Maintenance, 11/17/20 12:53:00 EDT, [facility] #[id number], Partial fill upon patientrequest if the prescription [...] 04/30/21 9:30:00 EDT, 12/31/20 9:30:00 EDT, Tablet, [facility] #[id number], Partial fill upon patient request if the [...] 0 Refills, Maintenance, 03/16/21 18:17:00 EDT, Film, [facility] #[id number], Partial fill upon patient request if the [...] to oldest 1 2 3 [Reference Range]: Oxygen Saturation [94-100 %] 100 % 99 % 98 % (04/20/21 9:09 PM) (04/20/21 3:55 PM) (04/20/21 2:30 PM) Pulse Rate [55-90 bpm] 99 bpm 109 bpm 131 bpm *H* *H* *H* (04/20/21 9:09 PM) (04/20/21 3:55 PM) (04/20/21 2:30 PM) Blood Pressure [90-138/55-84 124/91 mm Hg 126/84 mm Hg 153 /97 mm Hg mm Hg] (04/20/21 9:09 PM) (04/20/21 3:55 PM) *H* (04/20/21 2:30 P M) Respiratory Rate [16-30 20 br/min 20 br/min 18 br/mi n br/min] (04/20/21 9:09 PM) (04/20/21 5:17 PM) (04/20/21 3:55 PM) Temperature [96.8-100.4 97 DegF 98.2 DegF 98.3 Deg F DegF] (04/20/21 9:09 PM) (04/20/21 3:55 PM) (04/20/21 1:09 PM) Mode of Delivery (Oxygen) Room air Room air Room a ir (04/20/21 9:09 PM) (04/20/21 3:55 PM) (04/20/21 2:30 PM) Blood pressure sites Arm, left Arm, right Arm, right (04/20/21 9:09 PM) (04/20/21 3:55 PM) (04/20/21 2:30 PM) Temperature Route Oral Oral Oral (04/20/21 9:09 PM) (04/20/21 3:55 PM) (04/20/21 1:09 PM) Weight Obtained Via [facility] (04/20/21 1:09 PM) Dry Weight Obtained Via [facility] (04/20/21 1:09 PM) Social History Social History Type Response Tobacco Use: 4 or less cigarettes(le ss than 1/4 pack)/day in last 30 days. Sex
--- OUTSIDE RECORDS SUMMARY | 2022-06-21 15:50 | XMS_ITS | Continuity of Care Document ---
:1985 Author Organization [facility] Address [address] [place] [address]- Care Team Providers Name Role Phone Caroline Thapa MD Primary Care Physician En[place] [facility] [place] Date(s): 08/16/20 - 08/16/[address] [address]- Encounter Diagnosis Pancreatitis (Final) - 08/16/20 Discharge Disposition: A-D/C Home Attending Physician: Izabel Knowles MD Admitting Physician: Izabel Knowles MD Referring Physician: Not on Staff, Referring [...] tablet, 0 Refills, Acute, 07/31/20 8:52:00 EST, [facility] #[id number], 163, cm, 07/08/20 13:37:00 EST, Height, 50, kg, 05/08/20 13:34:00 EST, Dry Weight Start Date: 07/31/20 Status: Orderedbrava bararier seals [id number] brava bararier seals [id number], See Instructions, # 20 units, Refills 11, Tot. Refills 11, Maintenance,use as needed for ostomy care. Dx. ileostomy, 03/19/19 11:54:35 EDT, Compound Start Date: 03/19/19 Status: OrderedClonazepam = 2 mg, By Mouth, Daily at bedtime, 0 Refills, Maintenance, 02/10/18 8:43:20 EDT Start Date: 02/10/18 Status: Orderedcoloplast 23291 coloplast 17680, See Instructions, # 20 each, Refills 11, Tot. Refills 11, Maintenance, use as needed for ostomy care Dx. ileostomy, 03/19/19 11:53:12 EDT, Compound Start Date: 03/19/19 Status: Orderedcoloplast 74013 coloplast 77974, See Instructions, # 20 each, Refills 11, [...] 06/04/20 16:00:00 EST, Route to Pharmacy Electronically, [facility]... Start Date: 06/04/20 Stop [...] 3 [Reference Range]: Oxygen Saturation [94-100 %] 97 % 96 % 100 % (08/16/20 6:31 PM) (08/16/20 4:27 PM) (08/16/20 3:5 4 PM) Pulse Rate [55-90 bpm] 64 bpm 82 bpm 69 bpm (08/16/20 6:31 PM) (08/16/20 4:27 PM) (08/16/20 3:5 4 PM) Blood Pressure [90-138/55-84 mm 118/78 mm Hg 110/72 mm Hg Hg] (08/16/20 6:31 PM) (08/16/20 4:27 PM) Respiratory Rate [16-30 br/min] 13 br/min 16 br/min *L* (08/16/20 4:27 PM) (08/16/20 6:31 PM) Temperature [96.8-100.4 DegF] 98.0 DegF (08/16/20 4:27 PM) Mode of Delivery (Oxygen) Room air Room air Room a ir (08/16/20 6:31 PM) (08/16/20 4:27 PM) (08/16/20 3:5 4 PM) Blood pressure sites Arm, left Arm, right (08/16/20 6:31 PM) (08/16/20 4:27 PM) Temperature Route Oral (08/16/20 4:27 PM) Social History Social History Type Response Tobacco Use: 4 or less cigarettes(le ss than 1/4 pack)/day in last 30 days. Sex Female
--- OUTSIDE RECORDS SUMMARY | 2022-06-21 15:50 | XMS_ITS | Continuity of Care Document ---
:1985 Author Organization [facility] Address [address] [place] [address]- Care Team Providers Name Role Phone Caroline Thapa MD Primary Care Physician Encounter [facility] [place] Date(s): 12/27/19 - 04/23/[address] [address]- [facility] Discharge Disposition: A-D/C Home Attending Physician: Caroline Thapa MD Admitting Physician: [...] 05/08/20 14:54:00 EST, 12/10/19 14:54:00 EDT, Tablet, [facility] #[id number], 165, cm, 12/04/19 10:31:00 EDT, Height, 55.1, kg, 11/17/19 3:58:00 EDT, Dry Weight Start Date: 12/10/19 Stop Date: 05/08/20 Status: Orderedbrava bararier seals [id number] brava bararier seals [id number], See Instructions, # 20 units, Refills 11, Tot. Refills 11, Maintenance,use as needed for ostomy care. Dx. ileostomy, 03/19/19 11:54:35 EDT, Compound Start Date: 03/19/19 Status: OrderedClonazepam = 2 mg, By Mouth, Daily at bedtime, 0 Refills, Maintenance, 02/10/18 8:43:20 EDT Start Date: 02/10/18 Status: Orderedcoloplast 67037 coloplast 16544, See Instructions, # 20 each, Refills 11, Tot. Refills 11, Maintenance, use as needed for ostomy care Dx. ileostomy, 03/19/19 11:53:12 EDT, Compound Start Date: 03/19/19 Status: Orderedcoloplast 76712 coloplast 56703, See Instructions, # 20 each, Refills 11, [...]
--- OUTSIDE RECORDS SUMMARY | 2022-06-21 15:50 | XMS_ITS | Continuity of Care Document ---
:1985 Author Organization [facility] Address [address] [place] [address] Drive [address] [place] [address]- Care Team Providers Name Role Phone Caroline Thapa MD Primary Care Physician [place] [facility] [place] Date(s): 06/08/19 - 06/15/[address] [place] [address]- [facility] Attending Physician: Angi Hook MD Referring Physician: [...] Stop Date: 08/28/19 Status: Orderedbrava bararier seals [id number] brava bararier seals [id number], See Instructions, # 20 units, Refills 11, Tot. Refills 11, Maintenance,use as needed for ostomy care. Dx. ileostomy, 03/19/19 11:54:35 EDT, Compound Start Date: 03/19/19 Status: OrderedClonazepam = 2 mg, By Mouth, Daily at bedtime, 0 Refills, Maintenance, 02/10/18 8:43:20 EDT Start Date: 02/10/18 Status: Orderedcoloplast 53676 coloplast 89654, See Instructions, # 20 each, Refills 11, Tot. Refills 11, Maintenance, use as needed for ostomy care Dx. ileostomy, 03/19/19 11:53:12 EDT, Compound Start Date: 03/19/19 Status: Orderedcoloplast 43305 coloplast 54891, See Instructions, # 20 each, Refills 11, [...]
--- OUTSIDE RECORDS SUMMARY | 2022-06-21 15:50 | XMS_ITS | Continuity of Care Document ---
:1985 Author Organization [facility] Address [address] [place] [address] Drive [address] [place] [address]- Care Team Providers Name Role Phone Caroline Thapa MD Primary Care Physician Encounter [facility] [place] Date(s): 09/07/19 - 09/14/[address] [place] [address]- [facility] Attending Physician: Angi Hook MD [...] Start Date: 02/10/18 Status: Orderedbrava bararier seals [id number] brava bararier seals [id number], See Instructions, # 20 units, Refills 11, Tot. Refills 11, Maintenance,use as needed for ostomy care. Dx. ileostomy, 03/19/19 11:54:35 EDT, Compound Start Date: 03/19/19 Status: OrderedClonazepam = 2 mg, By Mouth, Daily at bedtime, 0 Refills, Maintenance, 02/10/18 8:43:20 EDT Start Date: 02/10/18 Status: Orderedcoloplast 79338 coloplast 75565, See Instructions, # 20 each, Refills 11, Tot. Refills 11, Maintenance, use as needed for ostomy care Dx. ileostomy, 03/19/19 11:53:12 EDT, Compound Start Date: 03/19/19 Status: Orderedcoloplast 25748 coloplast 79164, See Instructions, # 20 each, Refills 11, [...] Fibromyalgia(Confirmed) Active OCD (obsessive compulsive Active disorder)(Confirmed) Vital Signs Most recent to oldest [Reference Range]: 1 Height 130 cm (09/07/19 4:17 PM) Weight 52.6 kg (09/07/19 4:17 PM) Body Mass Index [18.5-24.99] 31.12 *>HHI* (09/07/19 4:17 PM) Social History Social History Type Response Tobacco Use: 4 or less cigarettes(le ss than 1/4 pack)/day in last 30 days. Sex
--- OUTSIDE RECORDS SUMMARY | 2022-06-21 15:50 | XMS_ITS | Continuity of Care Document ---
:1985 Author Organization [facility] Address Unavailable , Care Team Providers Name Role Phone Elier RICHARDSON, Caroline Connolly Primary Care Physician [place] [facility] [place] 02/[place]/22 [facility] Attending Physician: Jolynn Lobo Admitting Physician: Jolynn [...] tablet, 6 Refills, Maintenance, 05/12/21 15:32:00 EST, [facility] #[id number], Partial fill upon patient request if the [...]
--- OUTSIDE RECORDS SUMMARY | 2022-06-21 15:50 | XMS_ITS | Continuity of Care Document ---
:1985 Author Organization [facility] Address [address] [place] [address]- Care Team Providers Name Role Phone Caroline Thapa MD Primary Care Physician Encounter [facility] [place] Date(s): 01/05/21 - 01/06/[address] [address]- Encounter Diagnosis Abdominal pain (Final) - 01/06/21 Discharge Disposition: A-D/C AMA Attending Physician: Angi Hook MD Admitting Physician: Angi Hook MD Referring Physician: Not on Staff, Referring [...] capsule = 1,000 mg, By Mouth, Every 6 hours, PRN for pain, for 7 days, # 56 capsule, 0 Refills, Acute 01/13/21 15:36:00 EDT, 01/06/21 15:36:00 EDT, Capsule, [facility] #[id number], Partial fill upon patient request if the prescription is for a... Start Date: 01/06/21 Stop Date: 01/13/21 Status: OrderedAmbien 10 mg oral tablet 1 tablet = 10 mg, By Mouth, Daily at bedtime, 0 Refills, Maintenance, 02/10/18 8:43:32 EDT Start Date: 02/10/18 Status: Orderedbethanechol 10 mg oral tablet 1 tablet, By Mouth, 3 times a day, # 90 tablet, 0 Refills, Acute, 07/31/20 8:52:00 EST, [facility] #[id number], 163, cm, 07/08/20 13:37:00 EST, Height, 50, kg, 05/08/20 13:34:00 EST, Dry Weight Start Date: 07/31/20 Status: Orderedbethanechol 25 mg oral tablet 25 mg, 1, tablet, By Mouth, 3 times a day, for 30 days, # 90 tablet, Refills 4, Tot. Refills 4, Acute 02/13/21 14:38:00 EDT, 09/16/20 14:38:00 EDT, Route to Pharmacy Electronically, [facility] #[id number], Partial fill upon patient request if the... Start Date: 09/16/20 Stop Date: 02/13/21 Status: Orderedbrava bararier seals [id number] brava bararier seals [id number], See Instructions, # 20 units, Refills 11, Tot. Refills 11, Maintenance,use as needed for ostomy care. Dx. ileostomy, 03/19/19 11:54:35 EDT, Compound Start Date: 03/19/19 Status: OrderedClonazepam = 2 mg, By Mouth, Daily at bedtime, 0 Refills, Maintenance, 02/10/18 8:43:20 EDT Start Date: 02/10/18 Status: Orderedcoloplast 17845 coloplast 59531, See Instructions, # 20 each, Refills 11, Tot. Refills 11, Maintenance, use as needed for ostomy care Dx. ileostomy, 03/19/19 11:53:12 EDT, Compound Start Date: 03/19/19 Status: Orderedcoloplast 02408 coloplast 51691, See Instructions, # 20 each, Refills 11, Tot. Refills 11, Maintenance, use as needed for ostomy care Dx. ileostomy, 03/19/19 11:53:15 EDT, Compound Start Date: 03/19/19 Status: OrderedCymbalta = 90 mg, By Mouth, Daily at bedtime, 0 Refills, 12/12/08 11:20:40 EDT Start Date: 12/12/08 Status: OrderedDilaudid Inj 0.5 mg, Injection, IV Push Slowly, Every 4 hours, PRN for Pain , Severe, Routine, 01/05/21 23:44:00 EDT Start Date: 01/05/21 Stop Date: 01/12/21 Status: OrderedDramamine Tablet 25 mg, By Mouth, [...] Date: 06/20/20 Status: Orderedloperamide 2 mg oral tablet 2 tablet = 4 mg, By Mouth, 4 times a day, take 1/2 hour before meals and at bed time, # 240 tablet, 6 Refills, Maintenance, 11/17/20 12:53:00 EDT, [facility] #[id number], Partial fill upon patientrequest if the prescription is for a schedule II... Start Date: 11/17/20 Stop Date: 06/15/21 Status: OrderedMultivitamin Daily, 0 Refills, Maintenance, 02/05/20 [...] 04/30/21 9:30:00 EDT, 12/31/20 9:30:00 EDT, Tablet, [facility] #[id number], Partial fill upon patient request if the prescription is for a schedule... Start Date: 12/31/20 Stop Date: 04/30/21 Status: Orderedsize small, latex free gloves size [...] a schedule II opioid drug. Start Date: 3/16/21 Status: Orderedthiamine 100 mg oral tablet 100 mg, 1, tablet, By Mouth, Daily, for 14 days, # 14 tablet, Refills 0, Tot. Refills 0, Acute 01/14/21 9:30:00 EDT, 12/31/20 9:30:00 EDT, Route to Pharmacy Electronically, [facility] #[id number],Partial fill upon patient request if the prescrip... Start Date: 12/31/20 Stop Date: 01/14/21 Status: OrderedtraZODone 100 mg oral tablet 100 [...] disc(Confirmed) Vital Signs Most recent to oldest [Reference 1 2 3 Range]: Oxygen Saturation [94-100 %] 99 % 99 % 100 % (01/06/21 11:32 AM) (01/06/21 7:45 AM) (01/06/21 6:25 AM) Pulse Rate [55-90 bpm] 99 bpm 72 bpm 62 bpm *H* (01/06/21 7:45 AM) (01/06/21 6:25 AM ) (01/06/21 11:32 AM) Blood Pressure [90-138/55-84 mm 130/79 mm Hg 128/84 mm Hg 130/58 mm Hg Hg] (01/06/21 11:32 AM) (01/06/21 7:45 AM) (01/06/21 6:25 AM) Respiratory Rate [16-30 br/min] 19 br/min 16 br/min 18 br/min (01/06/21 11:32 AM) (01/06/21 7:45 AM) (01/06/21 6:25 AM) Temperature [96.8-100.4 DegF] 97.9 DegF (01/06/21 7:45 AM) Mode of Delivery (Oxygen) Room air Room air Room a ir (01/06/21 11:32 AM) (01/06/21 7:45 AM) (01/06/21 6:25 AM) Blood pressure sites Arm, left Arm, left Arm, left (01/06/21 11:32 AM) (01/06/21 7:45 AM) (01/06/21 6:25 AM) Temperature Route Oral Oral (01/06/21 7:45 AM) (01/05/21 6:44 PM) Social History Social History Type Response Tobacco Use: 4 or less cigarettes(le ss than 1/4 pack)/day in last 30 days. Sex
--- OUTSIDE RECORDS SUMMARY | 2022-06-21 15:50 | XMS_ITS | Continuity of Care Document ---
:1985 Author Organization [facility] Address [address] [place] [address]- Care Team Providers Name Role Phone Caroline Thapa MD Primary Care Physician Encounter [facility] Date(s): 04/29/21 - 06/04/[address] [address]- Attending Physician: Angi Hook MD Admitting Physician: Angi Hook MD Allergies, Adverse Reactions, [...] tablet, 6 Refills, Maintenance, 05/12/21 15:32:00 EST, [facility] #[id number], Partial fill upon patient request if the [...]
--- OUTSIDE RECORDS SUMMARY | 2022-06-21 15:50 | XMS_ITS | Continuity of Care Document ---
:1985 Author Organization [facility] Address [address] [place] [address]- Care Team Providers Name Role Phone Elier RICHARDSON, Caroline Connolly Primary Care Physician Encounter [facility] [place] Date(s): 11/29/19 - 12/06/19 [facility] [address] [place] [address]- [facility] Attending Physician: Chidi Parkinson MD Referring Physician: Caroline Thapa MD Allergies, [...] 02/27/20 16:14:00 EDT, 10/30/19 16:14:00 EDT, Tablet, [facility] #[id number], 130, cm, 09/07/19 16:17:00 EST, Height, 50.6, kg, 08/10/19 17:18:00 EST, Dry Weight Start Date: 10/30/19 Stop Date: 02/27/20 Status: Orderedbrava bararier seals [id number] brava bararier seals [id number], See Instructions, # 20 units, Refills 11, Tot. Refills 11, Maintenance,use as needed for ostomy care. Dx. ileostomy, 03/19/19 11:54:35 EDT, Compound Start Date: 03/19/19 Status: OrderedClonazepam = 2 mg, By Mouth, Daily at bedtime, 0 Refills, Maintenance, 02/10/18 8:43:20 EDT Start Date: 02/10/18 Status: Orderedcoloplast 00434 coloplast 63091, See Instructions, # 20 each, Refills 11, Tot. Refills 11, Maintenance, use as needed for ostomy care Dx. ileostomy, 03/19/19 11:53:12 EDT, Compound Start Date: 03/19/19 Status: Orderedcoloplast 08386 coloplast 40284, See Instructions, # 20 each, Refills 11, [...]
--- OUTSIDE RECORDS SUMMARY | 2022-06-21 15:50 | XMS_ITS | Continuity of Care Document ---
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 Refills 11, Maintenance,use as needed for ostomy care. Dx. ileostomy, 03/19/19 11:54:35 EDT, Compound Start Date: 03/19/19 Status: OrderedClonazepam = 2 mg, By Mouth, Daily at bedtime, 0 Refills, Maintenance, 02/10/18 8:43:20 EDT Start Date: 02/10/18 Status: Orderedcoloplast 63690 coloplast 15171, See Instructions, # 20 each, Refills 11, Tot. Refills 11, Maintenance, use as needed for ostomy care Dx. ileostomy, 03/19/19 11:53:12 EDT, Compound Start Date: 03/19/19 Status: Orderedcoloplast 16906 coloplast 91190, See Instructions, # 20 each, Refills 11, [...] 02/08/20 10:07:00 EDT, Route to Pharmacy Electronically, [facility] #[id number], 163, cm, 02/08/20 8:01:00 EDT, Height,... Start [...]
--- OUTSIDE RECORDS SUMMARY | 2022-06-21 15:50 | XMS_ITS | Continuity of Care Document ---
:1985 Author Organization [facility] Address Unavailable , Care Team Providers Name Role Phone Caroline Thapa MD Primary Care Physician [place] [facility] [place](s): 01/11/22 - 02/21/22 [facility] Attending Physician: Angi Hook MD Referring [...] tablet, 6 Refills, Maintenance, 05/12/21 15:32:00 EST, [facility] #[id number], Partial fill upon patient request if the [...]
--- OUTSIDE RECORDS SUMMARY | 2022-06-21 15:50 | XMS_ITS | Continuity of Care Document ---
:1985 Author Organization [facility] Address [address] [place] [address], [address] [place] [address]- Care Team Providers Name Role Phone Elier RICHARDSON, Caroline Connolly Primary Care Physician Encounter [facility] [place] Date(s): 06/15/21 - 07/15/21 [facility] [address] [place] [address], [address] [place] [address]- Allergies, Adverse Reactions, Alerts Substance Reaction Severity [...] tablet, 6 Refills, Maintenance, 05/12/21 15:32:00 EST, [facility] #[id number], Partial fill upon patient request if the [...]
--- OUTSIDE RECORDS SUMMARY | 2022-06-21 15:50 | XMS_ITS | Continuity of Care Document ---
:1985 Author Organization [facility] Address [address] [place] [address], [address] [place] [address]- Care Team Providers Name Role Phone Caroline Thapa MD Primary Care Physician [place] [facility] [place]): [place]23[place] - 06/30/[address], [address] [place], [place] [address] Attending Physician: Shilpa Ruelas DO Referring Physician: Caroline Thapa MD Allergies, Adverse Reactions, Alerts Substance Reaction Severity Status sulfa drugs hives Active Lamictal rash Active Thorazine thorat closes Active Buspar1 rash Active Geodon psychosis Active Topamax Active 1rash Immunizations Given and [...] tablet, 0 Refills, Acute, 06/23/20 16:47:00 EST, [facility] #[id number], 163, cm, 06/20/20 13:10:00 EST, Height, 50, kg, 05/08/20 13:34:00 EST, Dry Weight Start Date: 06/23/20 Status: Orderedbrava bararier seals [id number] brava bararier seals [id number], See Instructions, # 20 units, Refills 11, Tot. Refills 11, Maintenance,use as needed for ostomy care. Dx. ileostomy, 03/19/19 11:54:35 EDT, Compound Start Date: 03/19/19 Status: OrderedClonazepam = 2 mg, By Mouth, Daily at bedtime, 0 Refills, Maintenance, 02/10/18 8:43:20 EDT Start Date: 02/10/18 Status: Orderedcoloplast 39169 coloplast 23780, See Instructions, # 20 each, Refills 11, Tot. Refills 11, Maintenance, use as needed for ostomy care Dx. ileostomy, 03/19/19 11:53:12 EDT, Compound Start Date: 03/19/19 Status: Orderedcoloplast 80578 coloplast 02867, See Instructions, # 20 each, Refills 11, [...] 06/04/20 16:00:00 EST, Route to Pharmacy Electronically, [facility]... Start Date: 06/04/20 Stop Date: [...] oldest [Reference Range]: 1 Height 163 cm (06/20/20 1:10 PM) Weight 50 kg (06/20/20 1:10 PM) Body Mass Index [18.5-24.99] 18.82 (06/20/20 1:10 PM) Social History Social History Type Response Tobacco Use: 4 or less cigarettes(le ss than 1/4 pack)/day in last 30 days. Sex
--- OUTSIDE RECORDS SUMMARY | 2022-06-21 15:50 | XMS_ITS | Continuity of Care Document ---
:1985 Author Organization [facility] Address [address] [place] [address]- Care Team Providers Name Role Phone Caroline Thapa MD Primary Care Physician [place] [facility] [place] 03/08/21 - 03/09/[address] [address]- Discharge Disposition: A-D/C Home Attending Physician: Maximo Calvillo MD Admitting Physician: Maximo Calvillo MD Referring Physician: Not on Staff, Referring [...] tablet, 6 Refills, Maintenance, 11/17/20 12:53:00 EDT, [facility] #[id number], Partial fill upon patientrequest if the prescription [...] 04/30/21 9:30:00 EDT, 12/31/20 9:30:00 EDT, Tablet, [facility] #[id number], Partial fill upon patient request if the [...] oldest 1 2 3 [Reference Range]: Height 166 cm 166 cm 166 cm (03/09/21 5:18 AM) (03/09/21 4:34 AM) (03/09/21 2:24 A M) Weight 53 kg 53 kg 53 kg (03/09/21 5:18 AM) (03/09/21 4:34 AM) (03/09/21 2:24 A M) Oxygen Saturation [94-100 97 % 97 % 97 % %] (03/09/21 5:18 AM) (03/09/21 4:34 AM) (03/09/21 2:24 A M) Pulse Rate [55-90 bpm] 64 bpm 63 bpm 62 bpm (03/09/21 5:18 AM) (03/09/21 4:34 AM) (03/09/21 2:24 A M) Body Mass Index 19.23 19.23 19.23 [18.5-24.99] (03/09/21 4:34 AM) (03/09/21 2:24 AM) (03/08/21 11:27 PM) Blood Pressure 108/77 mm Hg 109/62 mm Hg 113/64 mm Hg [90-138/55-84 mm Hg] (03/09/21 5:18 AM) (03/09/21 4:34 AM) (03/09/21 2 :24 AM) Respiratory Rate [16-30 18 br/min 18 br/min 16 br/mi n br/min] (03/09/21:18 AM) (03/09/21 4:34 AM) (03/09/21 2:24 A M) Temperature [96.8-100.4 98.2 DegF 98 DegF DegF] (03/09/21 2:24 AM) (03/08/21 11:27 PM) Mode of Delivery (Oxygen) Room air Room air Room a ir (03/09/21:18 AM) (03/09/21 2:24 AM) (03/08/21 11:40 PM) Blood pressure sites Arm, right Arm, right Arm, right (03/09/21:18 AM) (03/09/21 4:34 AM) (03/09/21 2:24 A M) Temperature Route Oral Oral (03/09/21 2:24 AM) (03/08/21 11:27 PM) Dry Weight 53 kg 53 kg 53 kg (03/09/21 5:18 AM) (03/09/21 4:34 AM) (03/09/21 2:24 A M) Weight Obtained Via Patient/family stated (03/08/21 8:48 PM) Social History Social History Type Response Tobacco Use: 4 or less cigarettes(le ss than 1/4 pack)/day in last 30 days. Sex
--- OUTSIDE RECORDS SUMMARY | 2022-06-21 15:50 | XMS_ITS | Continuity of Care Document ---
:1985 Author Organization [facility] Address [address] [place] [address]- Care Team Providers Name Role Phone Caroline Thapa MD Primary Care Physician Encounter [facility] [place] Date(s): 11/06/20 - 11/06/[address] [address]- Discharge Disposition: A-D/C AMA Attending Physician: Ashanti Reynolds MD Admitting Physician: Ashanti Reynolds MD Referring Physician: Not on Staff, Referring [...] tablet, 0 Refills, Acute, 07/31/20 8:52:00 EST, [facility] #[id number], 163, cm, 07/08/20 13:37:00 EST, Height, 50, kg, 05/08/20 13:34:00 EST, Dry Weight Start Date: 07/31/20 Status: Orderedbethanechol 25 mg oral tablet 25 mg, 1, tablet, By Mouth, 3 times a day, for 30 days, # 90 tablet, Refills 4, Tot. Refills 4, Acute 02/13/21 14:38:00 EDT, 09/16/20 14:38:00 EDT, Route to Pharmacy Electronically, [facility] #[id number], Partial fill upon patient request if the... Start Date: 09/16/20 Stop Date: 02/13/21 Status: Orderedbrava bararier seals [id number] brava bararier seals [id number], See Instructions, # 20 units, Refills 11, Tot. Refills 11, Maintenance,use as needed for ostomy care. Dx. ileostomy, 03/19/19 11:54:35 EDT, Compound Start Date: 03/19/19 Status: OrderedClonazepam = 2 mg, By Mouth, Daily at bedtime, 0 Refills, Maintenance, 02/10/18 8:43:20 EDT Start Date: 02/10/18 Status: Orderedcoloplast 02620 coloplast 18807, See Instructions, # 20 each, Refills 11, Tot. Refills 11, Maintenance, use as needed for ostomy care Dx. ileostomy, 03/19/19 11:53:12 EDT, Compound Start Date: 03/19/19 Status: Orderedcoloplast 26165 coloplast 54529, See Instructions, # 20 each, Refills 11, [...] Most recent to oldest [Reference Range]: 1 Oxygen Saturation [94-100 %] 96 % (11/06/20 4:41 PM) Pulse Rate [55-90 bpm] 42 bpm *L* (11/06/20 4:41 PM) Blood Pressure [90-138/55-84 mm Hg] 122/82 mm Hg (11/06/20 4:41 PM) Respiratory Rate [16-30 br/min] 15 br/min *L* (11/06/20 4:41 PM) Temperature [96.8-100.4 DegF] 97.5 DegF (11/06/20 4:41 PM) Mode of Delivery (Oxygen) Room air (11/06/20 4:41 PM) Blood pressure sites Arm, left (11/06/20 4:41 PM) Temperature Route Oral (11/06/20 4:41 PM) Social History Social History Type Response Tobacco Use: 4 or less cigarettes(le ss than 1/4 pack)/day in last 30 days. Sex Female
--- OUTSIDE RECORDS SUMMARY | 2022-06-21 15:50 | XMS_ITS | Continuity of Care Document ---
:1985 Author Organization [facility] Address [address] [place] [address], [address] [place] [address]- Care Team Providers Name Role Phone Elier RICHARDSON, Caroline Connolly Primary Care Physician [place] [facility] [place]/23/[place] - 07/23/[address], [address] [place], [place] [address] Attending Physician: Jolynn Lobo Admitting Physician: AdmtrJolynn Referring Physician: Admtr Ar8 Allergies, Adverse Reactions, Alerts Substance Reaction Severity Status Topamax Active Geodon psychosis Active Buspar1 rash Active sulfa drugs hives Active Lamictal rash [...] tablet, 0 Refills, Acute, 06/23/20 16:47:00 EST, [facility] #[id number], 163, cm, 06/20/20 13:10:00 EST, Height, 50, kg, 05/08/20 13:34:00 EST, Dry Weight Start Date: 06/23/20 Status: Orderedbrava bararier seals [id number] brava bararier seals [id number], See Instructions, # 20 units, Refills 11, Tot. Refills 11, Maintenance,use as needed for ostomy care. Dx. ileostomy, 03/19/19 11:54:35 EDT, Compound Start Date: 03/19/19 Status: OrderedClonazepam = 2 mg, By Mouth, Daily at bedtime, 0 Refills, Maintenance, 02/10/18 8:43:20 EDT Start Date: 02/10/18 Status: Orderedcoloplast 74827 coloplast 76220, See Instructions, # 20 each, Refills 11, Tot. Refills 11, Maintenance, use as needed for ostomy care Dx. ileostomy, 03/19/19 11:53:12 EDT, Compound Start Date: 03/19/19 Status: Orderedcoloplast 58256 coloplast 91820, See Instructions, # 20 each, Refills 11, [...] 06/04/20 16:00:00 EST, Route to Pharmacy Electronically, [facility]... Start Date: 06/04/20 Stop [...]
--- OUTSIDE RECORDS SUMMARY | 2022-06-21 15:50 | XMS_ITS | Continuity of Care Document ---
:1985 Author Organization [facility] Address [address] [place] [address] [place] [address]- Care Team Providers Name Role Phone Caroline Thapa MD Primary Care Physician En[place] [facility] [place] Date(s[place] 08/15/20 - 08/22/[address] [place] [address] Attending Physician: Angi Hook MD Referring Physician: [...] tablet, 0 Refills, Acute, 07/31/20 8:52:00 EST, [facility] #[id number], 163, cm, 07/08/20 13:37:00 EST, Height, 50, kg, 05/08/20 13:34:00 EST, Dry Weight Start Date: 07/31/20 Status: Orderedbrava bararier seals [id number] brava bararier seals [id number], See Instructions, # 20 units, Refills 11, Tot. Refills 11, Maintenance,use as needed for ostomy care. Dx. ileostomy, 03/19/19 11:54:35 EDT, Compound Start Date: 03/19/19 Status: OrderedClonazepam = 2 mg, By Mouth, Daily at bedtime, 0 Refills, Maintenance, 02/10/18 8:43:20 EDT Start Date: 02/10/18 Status: Orderedcoloplast 44853 coloplast 87083, See Instructions, # 20 each, Refills 11, Tot. Refills 11, Maintenance, use as needed for ostomy care Dx. ileostomy, 03/19/19 11:53:12 EDT, Compound Start Date: 03/19/19 Status: Orderedcoloplast 88036 coloplast 48264, See Instructions, # 20 each, Refills 11, [...] 06/04/20 16:00:00 EST, Route to Pharmacy Electronically, [facility]... Start Date: 06/04/20 Stop Date: [...]
--- OUTSIDE RECORDS SUMMARY | 2022-06-21 15:50 | XMS_ITS | Continuity of Care Document ---
:1985 Author Organization [facility] Address [address] [place] [address]- Care Team Providers Name Role Phone Elier RICHARDSON, Caroline Connolly Primary Care Physician [place] [facility] [place]10[place] - 07/08/[address] [address] [facility] Attending Physician: Angi Hook MD Allergies, Adverse [...] Stop Date: 08/28/19 Status: Orderedbrava bararier seals [id number] brava bararier seals [id number], See Instructions, # 20 units, Refills 11, Tot. Refills 11, Maintenance,use as needed for ostomy care. Dx. ileostomy, 03/19/19 11:54:35 EDT, Compound Start Date: 03/19/19 Status: OrderedClonazepam = 2 mg, By Mouth, Daily at bedtime, 0 Refills, Maintenance, 02/10/18 8:43:20 EDT Start Date: 02/10/18 Status: Orderedcoloplast 93453 coloplast 55537, See Instructions, # 20 each, Refills 11, Tot. Refills 11, Maintenance, use as needed for ostomy care Dx. ileostomy, 03/19/19 11:53:12 EDT, Compound Start Date: 03/19/19 Status: Orderedcoloplast 37999 coloplast 33668, See Instructions, # 20 each, Refills 11, [...]
--- OUTSIDE RECORDS SUMMARY | 2022-06-21 15:50 | XMS_ITS | Continuity of Care Document ---
:1985 Author Organization [facility] Address [address] [place] [address], [address] [place] [address]- Care Team Providers Name Role Phone Elier RICHARDSON, Caroline Connolly Primary Care Physician [place] [facility] [place] 07/08/20 - 08/07/20 [facility] [address] [place] [address], [address] [place] [address]- Allergies, Adverse Reactions, Alerts Substance Reaction Severity [...] tablet, 0 Refills, Acute, 07/31/20 8:52:00 EST, [facility] #[id number], 163, cm, 07/08/20 13:37:00 EST, Height, 50, kg, 05/08/20 13:34:00 EST, Dry Weight Start Date: 07/31/20 Status: Orderedbrava bararier seals [id number] brava bararier seals [id number], See Instructions, # 20 units, Refills 11, Tot. Refills 11, Maintenance,use as needed for ostomy care. Dx. ileostomy, 03/19/19 11:54:35 EDT, Compound Start Date: 03/19/19 Status: OrderedClonazepam = 2 mg, By Mouth, Daily at bedtime, 0 Refills, Maintenance, 02/10/18 8:43:20 EDT Start Date: 02/10/18 Status: Orderedcoloplast 19653 coloplast 15984, See Instructions, # 20 each, Refills 11, Tot. Refills 11, Maintenance, use as needed for ostomy care Dx. ileostomy, 03/19/19 11:53:12 EDT, Compound Start Date: 03/19/19 Status: Orderedcoloplast 42211 coloplast 28649, See Instructions, # 20 each, Refills 11, [...] 06/04/20 16:00:00 EST, Route to Pharmacy Electronically, [facility]... Start Date: 06/04/20 Stop Date: [...] 16:26:56 EDT Start Date: 04/30/19 Status: OrderedTaras Walker, See Instructions, # 1 each, Refills 0, [...]
--- OUTSIDE RECORDS SUMMARY | 2022-06-21 15:50 | XMS_ITS | Continuity of Care Document ---
:1985 Author Organization [facility] Address [address] [place] [id number]- Care Team Providers Name Role Phone Elier RICHARDSON, Caroline Connolly Primary Care Physician Encounter [facility] [place] Date(s): 01/12/21 - 01/13/[address] [address]- Discharge Disposition: A-D/C Home Attending Physician: Osito RICHARDSON, Doris Francis Admitting Physician: Wilfrid Baca MD Referring Physician: Not on Staff, Referring [...] 8:43:32 EDT Start Date: 02/10/18 Status: Orderedbethanechol 25 mg oral tablet 25 mg, 1, tablet, By Mouth, 3 times a day, for 30 days, # 90 tablet, Refills 4, Tot. Refills 4, Acute 02/13/21 14:38:00 EDT, 09/16/20 14:38:00 EDT, Route to Pharmacy Electronically, [facility] #[id number], Partial fill upon patient request if the... Start Date: 09/16/20 Stop Date: 02/13/21 Status: OrderedClonazepam = 2 mg, By Mouth, [...] 8:43:52 EDT Start Date: 02/10/18 Status: Orderedgabapentin 100 mg oral capsule 200 mg, Capsule, By Mouth, 01/13/21 11:00:00 EDT Start Date: 01/13/21 Stop Date: 01/13/21 Status: Completedgabapentin 800 mg oral tablet 1 tablet = [...] tablet, 6 Refills, Maintenance, 11/17/20 12:53:00 EDT, [facility] #[id number], Partial fill upon patientrequest if the prescription [...] 04/30/21 9:30:00 EDT, 12/31/20 9:30:00 EDT, Tablet, [facility] #[id number], Partial fill upon patient request if the [...] II opioid drug. Start Date: 09/16/20 Status: Orderedthiamine 100 mg oral tablet 100 mg, 1, tablet, By Mouth, Daily, for 14 days, # 14 tablet, Refills 0, Tot. Refills 0, Acute 01/14/21 9:30:00 EDT, 12/31/20 9:30:00 EDT, Route to Pharmacy Electronically, [facility] #[id number],Partial fill upon patient request if the prescrip... [...] intervertebral Active disc(Confirmed) Syncope and collapse(Confirmed) Active Results Orders for Microbiology Reports Name Date Blood Culture 01/12/21 Blood Culture #2 01/12/21 Microbiology Reports TEST:Blood Culture STATUS:Unauthenticated BODY SITE: SOURCE:Blood COLLECTED DATE/TIME:01/12/21 6:45 PMBlood Culture SPECIMEN DESCRIPTION : BLOOD LH SPECIAL REQUESTS : NONE CULTURE : NO GROWTH AFTER 24 HOURS REPORT STATUS : PRELIMINARY REPORT TEST:Blood Culture, Second Order STATUS:Unauthenticated BODY SITE: SOURCE:Blood COLLECTED DATE/TIME:01/12/21 6:45 PMBlood Culture, Second Order SPECIMEN DESCRIPTION : BLOOD RFOREARM SPECIAL REQUESTS : NONE CULTURE : NO GROWTH AFTER 24 HOURS REPORT STATUS : PRELIMINARY REPORT Radiology Reports Exam Date Time Procedure Performing Provider Status 01/12/21 7:25 PM Chest Portable aRdha Vail; Auth (Hudson whyte) Notes:(Chest Portable) Reason For Exam: FeverRESULT: Chest Portable Chest Portable Hx of Present Illness: Fall; Reason: Fever; Clinical Question(s): Pneumonia COMPARISON: 12/26/2020 FINDINGS: LINES AND TUBES: None. LUNGS AND PLEURA: Clear lungs. Normal pulmonary vascularity. No pleural effusion. No pneumothorax. HEART, MEDIASTINUM AND EMILIE: Heart is normal in size. Normal upper mediastinal and hilar contour. BONES AND SOFT TISSUES: No acute abnormality. IMPRESSION: No acute abnormality. WSN: [id number] Ordering Physician: Mel Hurd MD Dictated By: Dayron Thurman DO Dictated Date/Time: 01/12/21 7:36 pm Reviewed By: Dayron Thurman DO Signed By: Dayron Thurman DO Signed Date/Time: 01/12/21 7:36 pm Transcribed By: OTNE Transcribed Date/Time: 01/12/21 7:35 pm Vital Signs Most recent to oldest 1 2 3 [Reference Range]: Oxygen Saturation [94-100 %] 100 % 99 % 98 % (01/13/21 2:05 PM) (01/13/21 12:17 PM) (01/13/21 8: 16 AM) Pulse Rate [55-90 bpm] 97 bpm 94 bpm 85 bpm *H* *H* (01/13/21 8:16 AM ) (01/13/21 2:05 PM) (01/13/21 12:17 PM) Blood Pressure [90-138/55-84 138/98 mm Hg 149/89 mm Hg 132 /68 mm Hg mm Hg] (01/13/21 2:05 PM) *H* (01/13/21 8:16 AM) (01/13/21 12:17 PM) Respiratory Rate [16-30 18 br/min 18 br/min 18 br/mi n br/min] (01/13/21 2:05 PM) (01/13/21 12:17 PM) (01/13/21 12 :12 PM) Temperature [96.8-100.4 DegF] 98.4 DegF 98.2 DegF 98 .1 DegF (01/13/21 8:16 AM) (01/13/21 8:06 AM) (01/13/21 5:2 4 AM) Liters per Minute 3 L/min (01/12/21 8:01 PM) Mode of Delivery (Oxygen) Room air Room air Room a ir (01/13/21 2:05 PM) (01/13/21 12:17 PM) (01/13/21 8: 16 AM) Blood pressure sites Arm, left Arm, left Arm, left (01/13/21 2:05 PM) (01/13/21 12:17 PM) (01/13/21 8: 16 AM) Temperature Route Oral Oral Oral (01/13/21 8:16 AM) (01/13/21 8:06 AM) (01/13/21 5:2 4 AM) Social History Social History Type Response Tobacco Use: 4 or less cigarettes(le ss than 1/4 pack)/day in last 30 days. Sex
--- OUTSIDE RECORDS SUMMARY | 2022-06-21 15:50 | XMS_ITS | Continuity of Care Document ---
:1985 Author Organization [facility] Address [address] [place] [phone]- Care Team Providers Name Role Phone Caroline Thapa MD Primary Care Physician Encounter [facility] [place] [facility] [place] [id number] Date(s): 05/21/21 - 05/21/[address] [address]- Discharge Disposition: A-D/C Walkout Attending Physician: Not on Staff, Attending MD Admitting Physician: Not on Staff, Admitting MD Referring Physician: Not on Staff, Referring MD Allergies, Adverse Reactions, Alerts Substance Reaction Severity Status sulfa drugs hives Active Lamictal rash Active Topamax Active Buspar1 rash Active Geodon psychosis Active Thorazine thorat closes Active 1rash Immunizations [...] 05/28/21 21:12:00 EST, 05/21/21 21:12:00 EST, Capsule, [facility] #[id number], Partial fill upon patient request if the prescription is for a schedule II opio... Start Date: 05/21/21 Stop Date: 05/28/21 Status: OrderedReglan 5 mg oral tablet 1 tablet = 5 mg, By Mouth, 3 times a day before meals and bedtime, Take when you wake up, after lunch, and before bed., # 90 tablet, 6 Refills, Maintenance, 05/12/21 15:32:00 EST, [facility] #[id number], Partial fill upon patient request if the [...] [Reference Range]: 1 Oxygen Saturation [94-100 %] 100 % (05/21/21 12:09 PM) Pulse Rate [55-90 bpm] 79 bpm (05/21/21 12:09 PM) Blood Pressure [90-138/55-84 mm Hg] 125/76 mm Hg (05/21/21 12:09 PM) Respiratory Rate [16-30 br/min] 18 br/min (05/21/21 12:09 PM) Temperature [96.8-100.4 DegF] 98.7 DegF (05/21/21 12:09 PM) Mode of Delivery (Oxygen) Room air (05/21/21 12:09 PM) Temperature Route Oral (05/21/21 12:09 PM) Social History Social History Type Response Tobacco Use: 4 or less cigarettes(le ss than 1/4 pack)/day in last 30 days. Sex
--- OUTSIDE RECORDS SUMMARY | 2022-06-21 15:51 | XMS_ITS | Continuity of Care Document ---
:1985 Author Organization [facility] Address Unavailable , Care Team Providers Name Role Phone Elier RICHARDSON, Caroline Connolly Primary Care Physician [place] [facility] [place](s): 01/22/21 - 02/21/21 [facility] Attending Physician: Jolynn Lobo Admitting Physician: Jolynn [...] tablet, 6 Refills, Maintenance, 11/17/20 12:53:00 EDT, [facility] #[id number], Partial fill upon patientrequest if the prescription [...] 04/30/21 9:30:00 EDT, 12/31/20 9:30:00 EDT, Tablet, [facility] #[id number], Partial fill upon patient request if the [...]
--- OUTSIDE RECORDS SUMMARY | 2022-06-21 15:51 | XMS_ITS | Continuity of Care Document ---
:1985 Author Organization [facility] nter Address [address] [place] [id number]- Care Team Providers Name Role Phone Elier RICHARDSON, Caroline Connolly Primary Care Physician Encounter [facility] [place] Date(s): 05/16/22 - 05/16/[address] [address]- Discharge Disposition: A-D/C Home Attending Physician: Colin Simpson MD Admitting Physician: Colin Simpson MD Referring Physician: Not on Staff, Referring [...] as needed up to 7 times daily, 05/10/22 14:54:00 EST, DX code: R33.9, Supply Start Date: 05/10/22 Status: OrderedClonazepam = 2 mg, By Mouth, [...] tablet, 6 Refills, Maintenance, 05/12/21 15:32:00 EST, [id number], Partial fill upon patient request if the [...] Date: 04/30/19 Status: Ordered Problem List Condition Confirmation Course Effective Dates Status Health I nformant Status Anxiety Confirmed Active Depression Confirmed Active Eating disorder Confirmed 2002 Active Transaminitis Confirmed Active Fibromyalgia Confirmed Active Opiate use Confirmed Active Hypotension Confirmed Active Metabolic alkalosis Confirmed Active Colonic inertia s/p Confirmed Active total colectomy and ileostomy placement 10/2018 OCD (obsessive Confirmed Active compulsive disorder) Herniated lumbar Confirmed Active intervertebral disc Syncope and collapse Confirmed Active Underweight Confirmed Active Results Radiology Reports Exam Date Time Procedure Performing Provider Status 05/16/22 2:[address] Abd/Pelvis W/ IV + Oral Potyrala , Janette; Auth (Verified) Contrast Notes:(CT Abd/Pelvis W/ IV + Oral Contrast) Reason For Exam: RLQ abdominal pain;Other:RESULT: CT Abd/Pelvis W/ IV + Oral Contrast CT Abd/Pelvis W/ IV + Oral Contrast Hx of Present Illness: From local detox, increasing liquid stools. Pt has an illeostomy x3 years forcolonic inertia, reports more frequent stools that are more liqud than normal. Also reports abdominal cramping from gas pain . Increasing weakness, feels dehydrated.; Reason: Other:; RLQ abdominal pain; Clinical Question(s): Obstruction according to the colorectal notes in [facility], patient has a history of colonic inertia, rectal prolapse anorexia nervosa, substance abuse and is post total colectomy andileostomy placement in 2019. TECHNIQUE: Spiral CT through the abdomen and pelvis with IV contrast formatted in 3 planes. 75 cc ofOmnipaque 300 was administered intravenously. This study was performed without oral contrast. Weight-based protocol using automatic tube modulation was used to optimize exposure parameters. CTDIvol Body: 10.00 mGy, DLP Body: 542 mGy*cm. COMPARISON: 05/21/2021 and 04/20/2021. FINDINGS: [employer] View Findings, Lines and Tubes: None. [employer] demonstrates marked gaseous distention of the stomach and gaseous distention of numerous loops of small bowel in the midabdomen in lower quadrants. Visualized Chest: Lung bases are clear. No pleural effusion. The heart is normal in size. No pericardial effusion. Diaphragm: Normal. Liver: Normal. Gallbladder: No CT evidence of gallbladder pathology. Bile ducts: No biliary ductal dilation. Spleen: Normal. Pancreas: Normal. Adrenal glands: Normal. Kidneys and ureters: No hydronephrosis, stones, or suspicious masses. Bladder: Normal. Reproductive organs: Unremarkable. Stomach, small bowel, and large bowel: There is a right lower quadrant ostomy again noted and history of total colectomy. There is marked distention of the stomach containing ingested oral contrast andgas. Moderate distention of numerous loops of jejunum, containing ingested oral contrast and then more distal jejunum and ileum demonstrating at least moderate gaseous distention and contrast had not yet passed into the segments, particularly in the pelvis. Findings suggest partial small bowel obstruction. Transition point is noted in the anterior right lower quadrant, proximal to the ostomy site (coronal image 26, series 202, corresponding axial image 98 series 201).. Appendix: Surgically absent Peritoneum and retroperitoneum: No ascites or pneumoperitoneum. No omental or mesenteric lesions. Lymph nodes: Mildly prominent nonspecific mesenteric lymph nodes the midline and right lower quadrant. Blood vessels: Normal. No aneurysm. No evidence of venous thrombosis. Abdominal and pelvic wall: Right lower quadrant ostomy in place. Bones: No acute abnormality. IMPRESSION: Marked gaseous distention of stomach and numerous loops of jejunum, with slow motility of ingested oral contrast in the stomach and these bowel loops. There is also distention of bowel loops beyond thecolumn of contrast, with maximum diameter of small bowel loops about 3.6 cm. The appearance of the bowel and stomach are different than on earlier CTs, suggesting partial obstruction with transition point in the right lower quadrant proximal to the ostomy. Nonspecific mild mesenteric lymphadenopathy. Preliminary report called directly to Dr. Valenzuela in the [place] emergency department at the time of this dictation 2:53 PM on 05/16/2022. WSN: [id number] Ordering Physician: Francisco Valenzuela Dictated By: Donna Givens MD, I Dictated Date/Time: 05/16/22 2:54 pm Reviewed By: Donna Givens MD, I Signed By: Donna Givens MD, I Signed Date/Time: 05/16/22 2:54 pm Transcribed By: TONE Transcribed Date/Time: 05/16/22 2:29 pm Vital Signs Most recent to oldest 1 2 3 [Reference Range]: Height 165 cm 165 cm (05/16/22 11:42 AM) (05/16/22 11:39 AM) Weight 50 kg 50 kg (05/16/22 11:42 AM) (05/16/22 11:39 AM) Oxygen Saturation [94-100 100 % 100 % 100 % %] (05/16/22 4:30 PM) (05/16/22 3:23 PM) (05/16/22 1:37 PM) Pulse Rate [55-90 bpm] 77 bpm 81 bpm 84 bpm (05/16/22 4:30 PM) (05/16/22 3:23 PM) (05/16/22 1:37 PM) Body Mass Index 18.37 kg/m2 [18.5-24.99 kg/m2] *L* (05/16/22 11:39 AM) Blood Pressure 118/70 mm Hg 107/71 mm Hg 97/62 mm Hg [90-138/55-84 mm Hg] (05/16/22 4:30 PM) (05/16/22 3:23 PM) (05/04 09/22 1:37 PM) Respiratory Rate [16-30 16 br/min 18 br/min 18 br/mi n br/min] (05/16/22 4:30 PM) (05/16/22 3:23 PM) (05/16/22 1:37 PM) Temperature [96.8-100.4 98.3 DegF 97.9 DegF 98.4 Deg F DegF] (05/16/22 3:23 PM) (05/16/22 1:37 PM) (05/16/22 11:39 AM) Mode of Delivery (Oxygen) Room air Room air Room a ir (05/16/22 4:30 PM) (05/16/22 3:23 PM) (05/16/22 11:39 AM) Blood pressure sites Arm, right Arm, right Arm, left (05/16/22 4:30 PM) (05/16/22 3:23 PM) (05/16/22 1:37 PM) Temperature Route Oral Oral Oral (05/16/22 3:23 PM) (05/16/22 1:37 PM) (05/16/22 11:39 AM) Dry Weight 50 kg 50 kg (05/16/22 11:42 AM) (05/16/22 11:39 AM) Weight Obtained Via Patient/family stated (05/16/22 11:39 AM) Social History Social History Type Response Tobacco Use: 4 or less cigarettes(le ss than 1/4 pack)/day in last 30 days. Sex Note Calvin RICHARDSON, Colin Newton: PERFORM Event Display: Patient Education Leaflets Authored Date: Diet for Vomiting or Diarrhea (Adult) ?? [id number] Diet for Vomiting or Diarrhea (Adult) Your symptoms may return or get worse after eating certain foods listed below. If this happens, stop eating these foods until your symptoms ease and you feel better. Once the vomiting stops, follow the steps below.?? During the first 12 to 24 hours During the first 12 to 24 hours, follow this diet: ??? Drinks.??Have plain water, sports drinks (like electrolyte solutions), drinks without caffeine, mineral water (plain or flavored), and clear fruit juices. Don't have drinks with caffeine or citrus juices. This is because they are high in acid andcan irritate your stomach. ??? Soups. Have clear broth. ??? Desserts. Have plain gelatin, frozen icepops, and fruit juice bars without pieces of fruit. As you feel better, you may add 6??to 8 ounces of yogurt per day. If you have diarrhea, don't have??foods or drinks with sugar, high-fructose corn syrup, or sugar alcohols. ?? During the next 24 hours During the next 24 hours, you may add these to the above: ??? Hot cereal, plain toast, bread, rolls, and crackers ??? Plain noodles, rice, mashed potatoes, and chicken noodle or rice soup ??? Unsweetened canned fruit (not pineapple) and bananas Don't eat more than??15 grams of fat a day. Do this by staying away from margarine, butter, oils, mayonnaise, sauces, gravies, fried foods, peanut butter, meat, poultry, and fish. Don't eat much fiber. Stay away from??raw or cooked vegetables, fresh fruits (except bananas), and bran cereals. Limit how much??caffeine and chocolate you have. Don't use any??spices or seasonings except salt. ?? During the next 24 hours Slowly go back to your normal diet, as you feel better and your symptoms ease. ?? Last Reviewed Date: 2021 ?? [employer]. All rights reserved. This information is not intended as a substitute for professional medical care. Always follow your healthcare professional's instructions. ??Colin Simpson MD: PERFORM Event Display: Patient Education Leaflets Authored Date: [id number] Constipation (Adult) ?? [id number] Constipation (Adult) Constipation means that you have bowel movements that are less frequent than usual. Stools often become very hard and difficult to pass. Constipation is very common. At some point in life, it affects almost everyone. Since everyone's bowel habits are different, what is constipation to one person may not be to another. Your healthcare provider may do tests to diagnose constipation. It depends on what??they??find when evaluating you. Symptoms of constipation include: ??? Abdominal pain ??? Bloating ??? Vomiting ??? Painful bowel movements ??? Itching, swelling, bleeding, or pain around the anus Causes Constipation can have many causes. These include: ??? Diet low in fiber ??? Too much dairy ??? Not drinking enough liquids ??? Lack of exercise or physical activity (especially true for older adults) ??? Changes in lifestyle or daily routine, including , aging, work, and travel ??? Frequent use or misuse of laxatives ??? Ignoring the urge to have a bowel movement or delaying it until later ??? Medicines, such as certain prescription pain medicines, iron supplements, antacids, certain antidepressants, and calcium supplements ??? Diseases like irritable bowel syndrome, bowel obstructions, stroke, diabetes, thyroid disease, Parkinson disease, hemorrhoids, and colon cancer ?? Complications Possible complications of constipation can include: ??? Hemorrhoids ??? Rectal bleeding from hemorrhoids or anal fissures??(skin tears) ??? Hernias ??? Chronic constipation ??? Fecal impaction, a severe form of constipation in which a large amount of hard stool is in your rectum that you can't pass ??? Bowel obstruction or perforation ?? Home care All treatment should be done after talking with your healthcare provider. This is especially true if you have another medical problem, are taking prescription medicines, or are an older adult. Treatment most often involves lifestyle changes. You may also need medicines. Your healthcare provider will tell you which will work best for you. Follow the advice below to help avoid this problem in the future. ?? Lifestyle changes These lifestyle changes can help prevent constipation: ??? Diet. Eat a high- fiber diet, with fresh fruit and vegetables, and reduce dairy intake, meats, and processed foods ??? Fluids. It's important to get enough fluids each day. Drink plenty of water when you eat more fiber. If you are on diet thatlimits the amount of fluid you can have, talk about this with your healthcare provider. ??? Regular exercise. Check with your healthcare provider first. ?? Medicines Take any medicines as directed. Some laxatives are safe to use only every now and then. Others can be taken on a regular basis. While laxatives don't cause bowel dependence, they are treating the symptoms. So your constipation may return if you don't make other changes. Talk with your healthcare provider or pharmacist if you have questions. Prescription pain medicines can cause constipation. If you are taking this kind of medicine, ask your healthcare provider if you should also take a stool softener. Medicines you may take to treat constipation include: ??? Fiber supplements ??? Stool softeners ???Laxatives ??? Enemas ??? Rectal suppositories ?? Follow-up care Follow up with your healthcare provider if symptoms don't get better in the next few days. You may need to have more tests or see a specialist. ?? Call 911 Call 911 if any of these occur: ??? Trouble breathing ??? Stiff, rigid abdomen that is severely painful to touch ??? Large amount of blood in the stool ??? Confusion ??? Fainting or loss of consciousness ??? Rapid heart rate ??? Chest pain ?? When to seek medical advice Call your healthcare provider right away if any of these occur: ??? Fever of 100.4??F (38??C) or higher, or as directed by your healthcare provider ??? Failure to resume normal bowel movements ??? Pain in your abdomen or back gets worse ??? Nausea or vomiting ??? Swelling in your abdomen ??? Small amount of blood in the stool ??? Black, tarry stool ??? Involuntary weight loss ??? Weakness ?? Last Reviewed Date: 2021 ?? [id number] [employer]. All rights reserved. This information is not intended as a substitute for professional medical care. Always follow your healthcare professional's instructions. ?? CT Abdomen and Pelvis W contrast IV Domi , [facility] S: ALEXUS Givens MD, Donna I: VERIFY Event Display: Result: Authored Date: [id number] CT Abd/Pelvis W/ IV + Oral Contrast Hx of Present Illness: From local detox, increasing liquid stools. Pt has an illeostomy x3 years forcolonic inertia, reports more frequent stools that are more liqud than normal. Also reports abdominal cramping from gas pain . Increasing weakness, feels dehydrated.; Reason: Other:; RLQ abdominal pain; Clinical Question(s): Obstruction according to the colorectal notes in [facility], patient has a history of colonic inertia, rectal prolapse anorexia nervosa, substance abuse and is post total colectomy andileostomy placement in 2019. TECHNIQUE: Spiral CT through the abdomen and pelvis with IV contrast formatted in 3 planes. 75 cc ofOmnipaque 300 was administered intravenously. This study was performed without oral contrast. Weight-based protocol using automatic tube modulation was used to optimize exposure parameters. CTDIvol Body: 10.00 mGy, DLP Body: 542 mGy*cm. COMPARISON: 05/21/2021 and 04/20/2021. FINDINGS: Children[employer]S Ch[employer] Director View Findings, Lines and Tubes: None. Children[employer]S Ch[employer] Director demonstrates marked gaseous distention of the stomach and gaseous distention of numerous loops of small bowel in the midabdomen in lower quadrants. Visualized Chest: Lung bases are clear. No pleural effusion. The heart is normal in size. No pericardial effusion. Diaphragm: Normal. Liver: Normal. Gallbladder: No CT evidence of gallbladder pathology. Bile ducts: No biliary ductal dilation. Spleen: Normal. Pancreas: Normal. Adrenal glands: Normal. Kidneys and ureters: No hydronephrosis, stones, or suspicious masses. Bladder: Normal. Reproductive organs: Unremarkable. Stomach, small bowel, and large bowel: There is a right lower quadrant ostomy again noted and history of total colectomy. There is marked distention of the stomach containing ingested oral contrast andgas. Moderate distention of numerous loops of jejunum, containing ingested oral contrast and then more distal jejunum and ileum demonstrating at least moderate gaseous distention and contrast had not yet passed into the segments, particularly in the pelvis. Findings suggest partial small bowel obstruction. Transition point is noted in the anterior right lower quadrant, proximal to the ostomy site (coronal image 26, series 202, corresponding axial image 98 series 201).. Appendix: Surgically absent Peritoneum and retroperitoneum: No ascites or pneumoperitoneum. No omental or mesenteric lesions. Lymph nodes: Mildly prominent nonspecific mesenteric lymph nodes the midline and right lower quadrant. Blood vessels: Normal. No aneurysm. No evidence of venous thrombosis. Abdominal and pelvic wall: Right lower quadrant ostomy in place. Bones: No acute abnormality. IMPRESSION: Marked gaseous distention of stomach and numerous loops of jejunum, with slow motility of ingested oral contrast in the stomach and these bowel loops. There is also distention of bowel loops beyond thecolumn of contrast, with maximum diameter of small bowel loops about 3.6 cm. The appearance of the bowel and stomach are different than on earlier CTs, suggesting partial obstruction with transition point in the right lower quadrant proximal to the ostomy. Nonspecific mild mesenteric lymphadenopathy. Preliminary report called directly to Dr. Valenzuela in the [place] emergency department at the time of this dictation 2:53 PM on 05/16/2022. WSN: [id number] Ordering Physician: Francisco Valenzuela Dictated By: Donna Givens MD, I Dictated Date/Time: 05/16/22 2:54 pm Reviewed By: Donna Givens MD, I Signed By: Donna Givens MD, I Signed Date/Time: 05/16/22 2:54 pm Transcribed By: TONE Transcribed Date/Time: 05/16/22 2:29 pm Patient Care team information Care Team PersonnelName: Mayelin Hyde RN Position: [facility] PCO RN Member Role: Primary Care Nurse Name: Linda Coats RN Position: [facility] RN Member Role: Primary Care Nurse Name: Chance Velásquez RN Position: [facility] RN Member Role: Primary Care Nurse Name: Caroline Thapa MD Position: [facility] Outreach Member Role: PCP Address: Address: [address] [place] [id number]- Name: Karyna Morin RN Position: [facility] AMB Nurse Member Role: Primary Care Nurse Name: Daniel Cui RN Position: [facility] ED RN W/OE and Tasks Member Role: Patient Care Provider Name: Colin Simpson MD Position: [facility] ED Medicine MD Member Role: Admitting Physician Address: Address: [address] [place] [address] [place] [address]- [place] Care Team Related PersonsName: YUNIOR RAPHAEL Address: [address] [place] [address] Name: YUNIOR HALL Address: [address] [place] [address] Name: BLADIMIR WELDON Address: [address] [place] [address] Name: ANNITA PALOMARES Address: [address] [place] [address] Name: ANNITA YATES Address: [address] [place] [address]
--- OUTSIDE RECORDS SUMMARY | 2022-06-21 15:51 | XMS_ITS | Continuity of Care Document ---
:1985 Author Organization [facility] Address [address] [place] [address]- Care Team Providers Name Role Phone Caroline Thapa MD Primary Care Physician Encounter [facility] [place] Date(s): 11/16/19 - 11/17/[address] [address]- [facility] Encounter Diagnosis Abdominal pain (Final) - 11/17/19 Discharge Disposition: A-D/C Home Attending Physician: Kalyan Shaikh DO Admitting Physician: Kalyan Shaikh DO Referring Physician: Not on Staff, Referring MD [...] 02/27/20 16:14:00 EDT, 10/30/19 16:14:00 EDT, Tablet, [id number], 130, cm, 09/07/19 16:17:00 EST, Height, 50.6, kg, 08/10/19 17:18:00 EST, Dry Weight Start Date: 10/30/19 Stop Date: 02/27/20 Status: Orderedbrava bararier seals [id number] desi gomezer seals [id number], See Instructions, # 20 units, Refills 11, Tot. Refills 11, Maintenance,use as needed for ostomy care. Dx. ileostomy, 03/19/19 11:54:35 EDT, Compound Start Date: 03/19/19 Status: OrderedClonazepam = 2 mg, By Mouth, Daily at bedtime, 0 Refills, Maintenance, 02/10/18 8:43:20 EDT Start Date: 02/10/18 Status: Orderedcoloplast 67797 coloplast 37426, See Instructions, # 20 each, Refills 11, Tot. Refills 11, Maintenance, use as needed for ostomy care Dx. ileostomy, 03/19/19 11:53:12 EDT, Compound Start Date: 03/19/19 Status: Orderedcoloplast 42796 coloplast 33281, See Instructions, # 20 each, Refills 11, [...] disorder)(Confirmed) Vital Signs Most recent to oldest 1 2 3 [Reference Range]: Height 165 cm 165 cm (11/17/19 3:58 AM) (11/16/19 5:27 PM) Weight 55.1 kg 55.1 kg (11/17/19 3:58 AM) (11/16/19 5:27 PM) Oxygen Saturation [94-100 %] 99 % 99 % 98 % (11/17/19 5:17 AM) (11/17/19 3:58 AM) (11/16/19 9:3 9 PM) Pulse Rate [55-90 bpm] 71 bpm 66 bpm 86 bpm (11/17/19 5:17 AM) (11/17/19 3:58 AM) (11/16/19 9:3 9 PM) Body Mass Index [18.5-24.99] 20.24 (11/17/19 3:58 AM) Blood Pressure [90-138/55-84 mm 112/64 mm Hg 117/76 mm Hg 112/70 mm Hg Hg] (11/17/19 3:58 AM) (11/16/19 9:39 PM) (11/16/19 5:2 7 PM) Respiratory Rate [16-30 br/min] 16 br/min 16 br/min 18 br/min (11/17/19 5:17 AM) (11/17/19 3:58 AM) (11/17/19 2:4 0 AM) Temperature [96.8-100.4 DegF] 98.3 DegF 98.0 DegF (11/17/19 3:58 AM) (11/16/19 5:27 PM) Mode of Delivery (Oxygen) Room air Room air Room a ir (11/17/19 5:17 AM) (11/17/19 3:58 AM) (11/16/19 9:3 9 PM) Blood pressure sites Arm, right Arm, left Arm, left (11/17/19 3:58 AM) (11/16/19 9:39 PM) (11/16/19 5:2 7 PM) Temperature Route Oral Oral (11/17/19 3:58 AM) (11/16/19 5:27 PM) Dry Weight 55.1 kg 55.1 kg (11/17/19 3:58 AM) (11/16/19 5:27 PM) Social History Social History Type Response Tobacco Use: 4 or less cigarettes(le ss than 1/4 pack)/day in last 30 days. Sex
--- OUTSIDE RECORDS SUMMARY | 2022-06-21 15:51 | XMS_ITS | Continuity of Care Document ---
:1985 Author Organization [facility] Address [address] [place] [address], [address] [place] [address]- Care Team Providers Name Role Phone Elier RICHARDSON, Caroline Connolly Primary Care Physician [place] [facility] [place] 06[place]22 [facility] [address] [place] [address], [address] [place] [address]- Allergies, Adverse Reactions, Alerts Substance Reaction Severity Status sulfa drugs hives Active Lamictal rash Active Thorazine thorat closes Active Topamax Active Buspar1 rash Active Geodon psychosis Active 1rash Immunizations Given and Recorded Vaccine Date Status Refusal Reason influenza virus vaccine, inactivated 05/18/22 Given influenza virus vaccine, inactivated 07/15/21 Recorded influenza virus vaccine, inactivated 05/09/19 Recorded influenza virus vaccine, inactivated 04/11/18 Recorded influenza virus vaccine, inactivated 03/20/17 Recorded influenza virus vaccine, inactivated 03/26/16 Recorded influenza virus vaccine, inactivated 04/05/15 Recorded influenza virus vaccine, inactivated 06/21/11 Recorded influenza virus vaccine, inactivated 09/09/10 Recorded tetanus-diphtheria toxoids (Td) 07/15/21 Recorded SARS-CoV-2 (COVID-19) mRNA BNT-162b2 vac 01/11/21 Recorde d SARS-CoV-2 (COVID-19) mRNA BNT-162b2 vac 12/13/20 Recorde d Human Papillomavirus Vaccine 09/09/10 Recorded Human Papillomavirus Vaccine 06/25/09 Recorded Human Papillomavirus Vaccine 04/24/09 Recorded tetanus/diphtheria/pertussis, acel(Tdap) 09/09/10 Recorde d Hepatitis A Vaccine (oldterm) 02/15/06 Given Measles/Mumps/Rubella Virus Vaccine 12/23/94 Recorded Measles/Mumps/Rubella Virus Vaccine 08/28/87 Recorded Varicella Virus Vaccine 12/02/90 Recorded Medications Ambien 10 mg oral tablet 1 tablet = 10 mg, By Mouth, Daily at bedtime, 0 Refills, Maintenance, 02/10/18 8:43:32 EDT Start Date: 02/10/18 Status: OrderedBentyl 10 mg oral capsule 1 capsule, By Mouth, 4 times a day, # 40 capsule, 0 Refills, Maintenance, 05/17/22 22:15:00 EST, Capsule, Partial fill upon patient request if the prescription is for a schedule II opioid drug. Start Date: 05/17/22 Stop Date: 05/27/22 Status: Orderedbenztropine 1 mg oral tablet 1 mg, 1, tablet, By Mouth, 2 times a day, # 180 tablet, Refills 0, Maintenance, 06/01/22 12:45:00 EST, Partial fill upon patient request if the prescription is for a schedule II opioid drug. Start Date: 06/01/22 Status: OrderedCatheter Supplies See Instructions, # 210 each, Maintenance, Perform straight catheterization as needed up to 7 times daily, 05/10/22 14:54:00 EST, DX code: R33.9, Supply Start Date: 05/10/22 Status: OrderedClonazepam = 2 mg, By Mouth, Daily at bedtime, 0 Refills, Maintenance, 06/02/22 16:57:00 EST, Partial fill uponpatient request if the prescription is for a schedule II opioid drug. Start Date: 06/02/22 Status: OrderedcloNIDine 0.1 mg oral tablet 0.1 mg, 1, tablet, By Mouth, Daily at bedtime, # 30 tablet, Refills 0, Maintenance, 05/17/22 22:14:00 EST, Partial fill upon patient request if the prescription is for a schedule II opioid drug. Start Date: 05/17/22 Status: Orderedduloxetine 60 mg oral enteric coated capsule = 90 mg, By Mouth, Daily, # 90 capsule, 0 Refills, Maintenance, 01/13/21 1:59:00 EDT, EC Capsule, Partial fill upon patient request if the prescription is for a schedule II opioid drug. Start Date: 01/13/21 Status: OrderedFLUoxetine 20 mg oral capsule 20 mg, 1, capsule, By Mouth, Daily, # 90 capsule, Refills 0, Maintenance, 05/17/22 22:15:00 EST, Partial fill upon patient request if the prescription is for a schedule II opioid drug. Start Date: 05/17/22 Status: Orderedfolic acid 1 mg oral tablet 1 mg, 1, tablet, By Mouth, Daily, # 30 tablet, Refills 0, Maintenance, 05/17/22 22:15:00 EST, Partial fill upon patient request if the prescription is for a schedule II opioid drug. Start Date: 05/17/22 Status: Orderedgabapentin 800 mg oral tablet 1 tablet = 800 mg, By Mouth, 2 times a day, 200mg in am; 200mg at noon and 800mg at hs, 0 Refills, Maintenance, 06/11/20 14:47:00 EST, Partial fill upon patient request if the prescription is for a schedule II opioid drug. Start Date: 06/11/20 Status: OrderedLatuda 80 mg oral tablet 1 tablet = 80 mg, By Mouth, Daily at bedtime, with food, # 30 tablet, 0 Refills, Maintenance, 05/17/22 22:14:00 EST, Tablet, Partial fill upon patient request if the prescription is for a schedule II opioid drug. Start Date: 05/17/22 Status: OrderedLFT in a week, results to PCP LFT in a week, results to PCP, See Instructions, # 1 each, Refills 0, Tot. Refills 0, Maintenance, Lab test to be performed in a week, 01/13/21 13:15:00 EDT, Supply, 163, cm, 09/16/20 14:26:00 EDT, Height, 48.6, kg, 12/26/20 13:51:00 EDT, Dry Weight Start Date: 01/13/21 Status: Orderedloperamide 2 mg oral capsule 2 mg, 1, capsule, By Mouth, Every 4 hours, PRN, # 60 capsule, Refills 0, Maintenance, for loose stool, 05/17/22 22:15:00 EST, Partial fill upon patient request if the prescription is for a schedule II opioid drug. Start Date: 05/17/22 Status: OrderedLORazepam 0.5 mg oral tablet 1 tablet = 0.5 mg, By Mouth, Daily at bedtime, PRN anxiety, through 11.30, 0 Refills, Maintenance, 06/01/22 12:57:00 EST, Partial fill upon patient request if the prescription is for a schedule II opioid drug. Start Date: 06/01/22 Status: OrderedReglan 10 mg oral tablet 1 tablet = 10 mg, By Mouth, 3 times a day before meals and bedtime, for 10 days, # 40 tablet, 0 Refills, Acute 06/14/22 10:51:00 EST, 06/04/22 10:51:00 EST, Tablet, [facility] fill upon patient request if the prescrip... Start Date: 06/04/22 Stop Date: 06/14/22 Status: OrderedSerum Magnesium levels in a week [...] 04/30/19 16:26:56 EDT Start Date: 04/30/19 Status: OrderedVitamin B1 100 mg oral tablet 100 mg, 1, tablet, By Mouth, Daily, # 10 tablet, Refills 0, Maintenance, 05/17/22 22:15:00 EST, Partial fill upon patient request if the prescription is for a schedule II opioid drug. Start Date: 05/17/22 Stop Date: 05/27/22 Status: Ordered Problem List Condition Confirmation Course [...] intervertebral disc Syncope and collapse Confirmed Active Social History Social History Type Response Smoking Status Former smoker, quit more julianna n 30 days ago; Other: quit about 2 years ago; entered on: 05/17/22 Sex Patient Care team information Care Team PersonnelName: Mayelin Hyde RN Position: [facility] PCO RN Member Role: Primary Care Nurse Name: Tatum Fan RN Position: [facility] RN Member Role: Primary Care Nurse Name: Tomer Rodriguez RN Position: [facility] RN Member Role: Primary Care Nurse Name: Linda Coats RN Position: [facility] RN Member Role: Primary Care Nurse Name: Chance Velásquez RN Position: [facility] RN Member Role: Primary Care Nurse Name: Caroline Thapa MD Position: [facility] Outreach Member Role: PCP Address: Address: [address] [place] [address] Name: Karyna Morin RN Position: [facility] AMB Nurse Member Role: Primary Care Nurse Care Team Related PersonsName: YUNIOR RAPHAEL Address: [address] [place] [address] Name: YUNIOR HALL Address: [address] [place] [address] Name: BLADIMIR WELDON Address: [address] [place] [address] Name: ANNITA PALOMARES Address: home [address] [place], [place] Name: ANNITA YATES Address: [address] [place] [address]
--- OUTSIDE RECORDS SUMMARY | 2022-06-21 15:51 | XMS_ITS | Continuity of Care Document ---
:1985 Author Organization [facility] Address [address] [place] [address]- Care Team Providers Name Role Phone Elier RICHARDSON, Caroline Connolly Primary Care Physician Encounter [facility] [place] Date(s): 04/01/20 - 05/01/20 [facility] [address] [place] [address]- [facility] Attending Physician: Jolynn Lobo Admitting Physician: Admtr, Jolynn Referring Physician: Admtr, Ar8 Allergies, Adverse Reactions, Alerts Substance Reaction Severity Status sulfa drugs hives Active Lamictal rash Active Buspar1 rash Active Geodon psychosis Active [...] 05/08/20 14:54:00 EST, 12/10/19 14:54:00 EDT, Tablet, [facility] #[id number], 165, cm, 12/04/19 10:31:00 EDT, Height, 55.1, kg, 11/17/19 3:58:00 EDT, Dry Weight Start Date: 12/10/19 Stop Date: 05/08/20 Status: Orderedbrava bararier seals [id number] brava bararier seals [id number], See Instructions, # 20 units, Refills 11, Tot. Refills 11, Maintenance,use as needed for ostomy care. Dx. ileostomy, 03/19/19 11:54:35 EDT, Compound Start Date: 03/19/19 Status: OrderedClonazepam = 2 mg, By Mouth, Daily at bedtime, 0 Refills, Maintenance, 02/10/18 8:43:20 EDT Start Date: 02/10/18 Status: Orderedcoloplast 78788 coloplast 71909, See Instructions, # 20 each, Refills 11, Tot. Refills 11, Maintenance, use as needed for ostomy care Dx. ileostomy, 03/19/19 11:53:12 EDT, Compound Start Date: 03/19/19 Status: Orderedcoloplast 40926 coloplast 08929, See Instructions, # 20 each, Refills 11, [...]
--- OUTSIDE RECORDS SUMMARY | 2022-06-21 15:51 | XMS_ITS | Continuity of Care Document ---
:1985 Author Organization [facility] Address [address] [place] [address]- Care Team Providers Name Role Phone Caroline Thapa MD Primary Care Physician Encounter [id number] Date(s): 02/27/21 - 03/29/21 [facility] [address] [address]- Attending Physician: Jolynn Lobo Admitting Physician: AdmtrJolynn Referring Physician: Admtr Ar8 Allergies, Adverse Reactions, Alerts Substance Reaction Severity Status Lamictal rash Active Geodon psychosis Active Buspar1 rash Active sulfa drugs hives Active Thorazine thorat closes Active Topamax Active [...] tablet, 6 Refills, Maintenance, 11/17/20 12:53:00 EDT, [facility] #[id number], Partial fill upon patientrequest if the prescription [...] 04/30/21 9:30:00 EDT, 12/31/20 9:30:00 EDT, Tablet, [facility] #[id number], Partial fill upon patient request if the [...] 0 Refills, Maintenance, 03/16/21 18:17:00 EDT, Film, [id number], Partial fill upon patient request if the [...]
--- OUTSIDE RECORDS SUMMARY | 2022-06-21 15:51 | XMS_ITS | Continuity of Care Document ---
:1985 Author Organization [facility] Address [address] [place] [address], [address] [place] [address]- Care Team Providers Name Role Phone Elier RICHARDSON, Caroline Connolly Primary Care Physician [place] [facility] [place] 05/09/20 [facility] [address] [place] [address], [address] [place] [address]- Allergies, Adverse Reactions, Alerts Substance Reaction Severity [...] Start Date: 02/10/18 Status: Orderedbrava bararier seals [id number] brava bararier seals [id number], See Instructions, # 20 units, Refills 11, Tot. Refills 11, Maintenance,use as needed for ostomy care. Dx. ileostomy, 03/19/19 11:54:35 EDT, Compound Start Date: 03/19/19 Status: OrderedClonazepam = 2 mg, By Mouth, Daily at bedtime, 0 Refills, Maintenance, 02/10/18 8:43:20 EDT Start Date: 02/10/18 Status: Orderedcoloplast 20207 coloplast 57297, See Instructions, # 20 each, Refills 11, Tot. Refills 11, Maintenance, use as needed for ostomy care Dx. ileostomy, 03/19/19 11:53:12 EDT, Compound Start Date: 03/19/19 Status: Orderedcoloplast 54100 coloplast 56227, See Instructions, # 20 each, Refills 11, [...]
--- OUTSIDE RECORDS SUMMARY | 2022-06-21 15:51 | XMS_ITS | Continuity of Care Document ---
:1985 Author [facility] Address [address] [place] [address], [address] [place] [address]- Care Team Providers Name Role Phone Elier RICHARDSON, Caroline Connolly Primary Care Physician En[place] [facility] [place] [facility] [id number] Date(s): 02/25/20 - 03/26/20 [facility] [address] [place] [address], [address] [place] [address]- [facility] Attending Physician: Jolynn Lobo Admitting Physician: AdmJolynn cruz Referring Physician: Admtr Ar8 Allergies, Adverse Reactions, [...] 05/08/20 14:54:00 EST, 12/10/19 14:54:00 EDT, Tablet, [facility] #[id number], 165, cm, 12/04/19 10:31:00 EDT, Height, 55.1, kg, 11/17/19 3:58:00 EDT, Dry Weight Start Date: 12/10/19 Stop Date: 05/08/20 Status: Orderedbrava bararier seals [id number] brava bararier seals [id number], See Instructions, # 20 units, Refills 11, Tot. Refills 11, Maintenance,use as needed for ostomy care. Dx. ileostomy, 03/19/19 11:54:35 EDT, Compound Start Date: 03/19/19 Status: OrderedClonazepam = 2 mg, By Mouth, Daily at bedtime, 0 Refills, Maintenance, 02/10/18 8:43:20 EDT Start Date: 02/10/18 Status: Orderedcoloplast 42460 coloplast 54412, See Instructions, # 20 each, Refills 11, Tot. Refills 11, Maintenance, use as needed for ostomy care Dx. ileostomy, 03/19/19 11:53:12 EDT, Compound Start Date: 03/19/19 Status: Orderedcoloplast 85444 coloplast 40778, See Instructions, # 20 each, Refills 11, [...]
--- OUTSIDE RECORDS SUMMARY | 2022-06-21 15:51 | XMS_ITS | Continuity of Care Document ---
:1985 Author Organization [facility] Address [address] [place] [address] [place] [address]- Care Team Providers Name Role Phone Caroline Thapa MD Primary Care Physician [place] [facility] [place] - 12/12/[address] [place] [address]- Attending Physician: Angi Hook MD Referring Physician: Caroline Thapa MD Allergies, Adverse Reactions, Alerts Substance Reaction Severity Status Geodon psychosis Active Buspar1 rash Active sulfa [...] tablet, 0 Refills, Acute, 07/31/20 8:52:00 EST, [facility] #[id number], 163, cm, 07/08/20 13:37:00 EST, Height, 50, kg, 05/08/20 13:34:00 EST, Dry Weight Start Date: 07/31/20 Status: Orderedbethanechol 25 mg oral tablet 25 mg, 1, tablet, By Mouth, 3 times a day, for 30 days, # 90 tablet, Refills 4, Tot. Refills 4, Acute 02/13/21 14:38:00 EDT, 09/16/20 14:38:00 EDT, [id number], Partial fill upon patient request if the... Start Date: 09/16/20 Stop Date: 02/13/21 Status: Orderedbrava bararier seals [id number] brava bararier seals [id number], See Instructions, # 20 units, Refills 11, Tot. Refills 11, Maintenance,use as needed for ostomy care. Dx. ileostomy, 03/19/19 11:54:35 EDT, Compound Start Date: 03/19/19 Status: OrderedClonazepam = 2 mg, By Mouth, Daily at bedtime, 0 Refills, Maintenance, 02/10/18 8:43:20 EDT Start Date: 02/10/18 Status: Orderedcoloplast 78516 coloplast 02603, See Instructions, # 20 each, Refills 11, Tot. Refills 11, Maintenance, use as needed for ostomy care Dx. ileostomy, 03/19/19 11:53:12 EDT, Compound Start Date: 03/19/19 Status: Orderedcoloplast 73807 coloplast 20494, See Instructions, # 20 each, Refills 11, [...] tablet, 6 Refills, Maintenance, 11/17/20 12:53:00 EDT, [facility] #[id number], Partial fill upon patientrequest if the prescription [...] Active Eating disorder(Confirmed) 2003 Active Fibromyalgia(Confirmed) Active Colonic inertia s/p total colectomy Active and ileostomy placement 10/2018(Confirmed) OCD (obsessive compulsive Active disorder)(Confirmed) Herniated lumbar intervertebral Active disc(Confirmed) Social History Social History Type Response Tobacco Use: 4 or less cigarettes(le ss than 1/4 pack)/day in last 30 days. Sex Female
--- OUTSIDE RECORDS SUMMARY | 2022-06-21 15:51 | XMS_ITS | Continuity of Care Document ---
:1985 Author Organization [facility] Address [address] [place] [address], [address] [place] [address]- Care Team Providers Name Role Phone Elier RICHARDSON, Caroline Connolly Primary Care Physician Encounter [facility] Date(s): 02/15/20 - 03/16/20 [facility] [address] [place] [address], [address] [place] [address]- [facility] Allergies, Adverse Reactions, Alerts Substance Reaction Severity [...] 05/08/20 14:54:00 EST, 12/10/19 14:54:00 EDT, Tablet, [facility] #[id number], 165, cm, 12/04/19 10:31:00 EDT, Height, 55.1, kg, 11/17/19 3:58:00 EDT, Dry Weight Start Date: 12/10/19 Stop Date: 05/08/20 Status: Orderedbrava bararier seals [id number] brava bararier seals [id number], See Instructions, # 20 units, Refills 11, Tot. Refills 11, Maintenance,use as needed for ostomy care. Dx. ileostomy, 03/19/19 11:54:35 EDT, Compound Start Date: 03/19/19 Status: OrderedClonazepam = 2 mg, By Mouth, Daily at bedtime, 0 Refills, Maintenance, 02/10/18 8:43:20 EDT Start Date: 02/10/18 Status: Orderedcoloplast 54289 coloplast 79805, See Instructions, # 20 each, Refills 11, Tot. Refills 11, Maintenance, use as needed for ostomy care Dx. ileostomy, 03/19/19 11:53:12 EDT, Compound Start Date: 03/19/19 Status: Orderedcoloplast 27970 coloplast 01132, See Instructions, # 20 each, Refills 11, [...]
--- OUTSIDE RECORDS SUMMARY | 2022-06-21 15:51 | XMS_ITS | Continuity of Care Document ---
:1985 Author Organization [facility] Address [address] [place] [address], [address] [place] [address]- Care Team Providers Name Role Phone Elier RICHARDSON, Caroline Connolly Primary Care Physician [place] [facility] [place] Date(s): 03/27/20 - 04/03/[address], [address] [place] [address]- [facility] Attending Physician: Not on Staff, Attending MD Referring Physician: Lucia RADIOLOGY AIDE, Trinity Allergies, Adverse Reactions, Alerts Substance Reaction Severity [...] 05/08/20 14:54:00 EST, 12/10/19 14:54:00 EDT, Tablet, [facility] #[id number], 165, cm, 12/04/19 10:31:00 EDT, Height, 55.1, kg, 11/17/19 3:58:00 EDT, Dry Weight Start Date: 12/10/19 Stop Date: 05/08/20 Status: Orderedbrava bararier seals [id number] brava bararier seals [id number], See Instructions, # 20 units, Refills 11, Tot. Refills 11, Maintenance,use as needed for ostomy care. Dx. ileostomy, 03/19/19 11:54:35 EDT, Compound Start Date: 03/19/19 Status: OrderedClonazepam = 2 mg, By Mouth, Daily at bedtime, 0 Refills, Maintenance, 02/10/18 8:43:20 EDT Start Date: 02/10/18 Status: Orderedcoloplast 84827 coloplast 91588, See Instructions, # 20 each, Refills 11, Tot. Refills 11, Maintenance, use as needed for ostomy care Dx. ileostomy, 03/19/19 11:53:12 EDT, Compound Start Date: 03/19/19 Status: Orderedcoloplast 98892 coloplast 63850, See Instructions, # 20 each, Refills 11, [...] oldest [Reference Range]: 1 Height 163 cm (03/27/20 1:14 PM) Weight 53 kg (03/27/20 1:14 PM) Body Mass Index [18.5-24.99] 19.95 (03/27/20 1:14 PM) Social History Social History Type Response Tobacco Use: 4 or less cigarettes(le ss than 1/4 pack)/day in last 30 days. Sex
--- OUTSIDE RECORDS SUMMARY | 2022-06-21 15:51 | XMS_ITS | Continuity of Care Document ---
:1985 Author Organization [facility] Address [address] [place] [address]- Care Team Providers Name Role Phone Elier RICHARDSON, Caroline Connolly Primary Care Physician Encounter [facility] [place] Date(s): 05/12/20 - 06/11/20 [facility] [address] [place] [id number] Allergies, Adverse Reactions, Alerts Substance Reaction [...] Start Date: 02/10/18 Status: Orderedbrava bararier seals [id number] brava bararier seals [id number], See Instructions, # 20 units, Refills 11, Tot. Refills 11, Maintenance,use as needed for ostomy care. Dx. ileostomy, 03/19/19 11:54:35 EDT, Compound Start Date: 03/19/19 Status: OrderedClonazepam = 2 mg, By Mouth, Daily at bedtime, 0 Refills, Maintenance, 02/10/18 8:43:20 EDT Start Date: 02/10/18 Status: Orderedcoloplast 09479 coloplast 45004, See Instructions, # 20 each, Refills 11, Tot. Refills 11, Maintenance, use as needed for ostomy care Dx. ileostomy, 03/19/19 11:53:12 EDT, Compound Start Date: 03/19/19 Status: Orderedcoloplast 39179 coloplast 13555, See Instructions, # 20 each, Refills 11, [...] 06/04/20 16:00:00 EST, Route to Pharmacy Electronically, [facility] Start Date: 06/04/20 Stop [...]
--- OUTSIDE RECORDS SUMMARY | 2022-06-21 15:51 | XMS_ITS | Continuity of Care Document ---
:1985 Author Organization [facility] Address [address] [place] [address], [address] [place] [address]- Care Team Providers Name Role Phone Caroline Thapa MD Primary Care Physician Encounter [facility] [place] Date(s): 09/16/20 - 09/23/20 [facility] [address] [place] [address], [address] [place] [address]- Attending Physician: Analisa Griffith MD Referring Physician: Caroline [...] tablet, 0 Refills, Acute, 07/31/20 8:52:00 EST, [email or web address] #[id number], 163, cm, 07/08/20 13:37:00 EST, Height, 50, kg, 05/08/20 13:34:00 EST, Dry Weight Start Date: 07/31/20 Status: Orderedbethanechol 25 mg oral tablet 25 mg, 1, tablet, By Mouth, 3 times a day, for 30 days, # 90 tablet, Refills 4, Tot. Refills 4, Acute 02/13/21 14:38:00 EDT, 09/16/20 14:38:00 EDT, Route to Pharmacy Electronically, [email or web address] #[id number], Partial fill upon patient request if the... Start Date: 09/16/20 Stop Date: 02/13/21 Status: Orderedbrava bararier seals [id number] brava bararier seals [id number], See Instructions, # 20 units, Refills 11, Tot. Refills 11, Maintenance,use as needed for ostomy care. Dx. ileostomy, 03/19/19 11:54:35 EDT, Compound Start Date: 03/19/19 Status: OrderedClonazepam = 2 mg, By Mouth, Daily at bedtime, 0 Refills, Maintenance, 02/10/18 8:43:20 EDT Start Date: 02/10/18 Status: Orderedcoloplast 14841 coloplast 36321, See Instructions, # 20 each, Refills 11, Tot. Refills 11, Maintenance, use as needed for ostomy care Dx. ileostomy, 03/19/19 11:53:12 EDT, Compound Start Date: 03/19/19 Status: Orderedcoloplast 10949 coloplast 76348, See Instructions, # 20 each, Refills 11, [...] oldest [Reference Range]: 1 Height 163 cm (09/16/20 2:26 PM) Weight 50 kg (09/16/20 2:26 PM) Body Mass Index [18.5-24.99] 18.82 (09/16/20 2:26 PM) Blood Pressure [90-138/55-84 mm Hg] 104/64 mm Hg (09/16/20 2:26 PM) Temperature [96.8-100.4 DegF] 96.1 DegF *L* (09/16/20 2:26 PM) Blood pressure sites Arm, right (09/16/20 2:26 PM) Temperature Route Temporal (09/16/20 2:26 PM) Dry Weight 50 kg (09/16/20 2:26 PM) Weight Obtained Via Standing scale (09/16/20 2:26 PM) Dry Weight Obtained Via Standing scale (09/16/20 2:26 PM) Social History Social History Type Response Tobacco Use: 4 or less cigarettes(le ss than 1/4 pack)/day in last 30 days. Sex Female
--- OUTSIDE RECORDS SUMMARY | 2022-06-21 15:51 | XMS_ITS | Continuity of Care Document ---
:1985 Author Organization [facility] Address Unavailable , Care Team Providers Name Role Phone Elier RICHARDSON, Caroline Connolly Primary Care Physician Encounter [facility] [place] Date(s): 04/27/21 - 05/27/21 [facility] Allergies, Adverse Reactions, Alerts Substance Reaction Severity [...] 05/28/21 21:12:00 EST, 05/21/21 21:12:00 EST, Capsule, [facility] #[id number], Partial fill upon patient request if the prescription is for a schedule II opio... Start Date: 05/21/21 Stop Date: 05/28/21 Status: OrderedReglan 5 mg oral tablet 1 tablet = 5 mg, By Mouth, 3 times a day before meals and bedtime, Take when you wake up, after lunch, and before bed., # 90 tablet, 6 Refills, Maintenance, 05/12/21 15:32:00 EST, [facility] #[id number], Partial fill upon patient request if the [...]
--- OUTSIDE RECORDS SUMMARY | 2022-06-21 15:51 | XMS_ITS | Continuity of Care Document ---
:1985 Author Organization [facility] Address [address] [place] [address]- Care Team Providers Name Role Phone Elier RICHARDSON, Caroline Connolly Primary Care Physician Encounter [facility] [place] Date(s): 02/06/20 - 03/08/20 [facility] [address] [place] [address]- [facility] Attending Physician: Channing Armenta MD Admitting Physician: [...] 05/08/20 14:54:00 EST, 12/10/19 14:54:00 EDT, Tablet, [facility] #[id number], 165, cm, 12/04/19 10:31:00 EDT, Height, 55.1, kg, 11/17/19 3:58:00 EDT, Dry Weight Start Date: 12/10/19 Stop Date: 05/08/20 Status: Orderedbrava bararier seals [id number] brava bararier seals [id number], See Instructions, # 20 units, Refills 11, Tot. Refills 11, Maintenance,use as needed for ostomy care. Dx. ileostomy, 03/19/19 11:54:35 EDT, Compound Start Date: 03/19/19 Status: OrderedClonazepam = 2 mg, By Mouth, Daily at bedtime, 0 Refills, Maintenance, 02/10/18 8:43:20 EDT Start Date: 02/10/18 Status: Orderedcoloplast 11217 coloplast 70496, See Instructions, # 20 each, Refills 11, Tot. Refills 11, Maintenance, use as needed for ostomy care Dx. ileostomy, 03/19/19 11:53:12 EDT, Compound Start Date: 03/19/19 Status: Orderedcoloplast 08379 coloplast 18731, See Instructions, # 20 each, Refills 11, [...] 02/08/20 10:07:00 EDT, Route to Pharmacy Electronically, [facility] #[id number], 163, cm, 02/08/20 8:01:00 EDT, Height,... Start [...] oldest [Reference Range]: 1 Height 163 cm (02/07/20 1:01 PM) Weight 56 kg (02/07/20 1:01 PM) Oxygen Saturation [94-100 %] 99 % (02/07/20 1:01 PM) Pulse Rate [55-90 bpm] 101 bpm *H* (02/07/20 1:01 PM) Body Mass Index [18.5-24.99] 21.08 (02/07/20 1:01 PM) Blood Pressure [90-138/55-84 mm Hg] 101/68 mm Hg (02/07/20 1:01 PM) Respiratory Rate [16-30 br/min] 16 br/min (02/07/20 1:01 PM) Temperature [96.8-100.4 DegF] 97.8 DegF (02/07/20 1:01 PM) Blood pressure sites Arm, left (02/07/20 1:01 PM) Weight Obtained Via Patient/family stated (02/07/20 1:01 PM) Social History Social History Type Response Tobacco Use: 4 or less cigarettes(le ss than 1/4 pack)/day in last 30 days. Sex
--- OUTSIDE RECORDS SUMMARY | 2022-06-21 15:51 | XMS_ITS | Continuity of Care Document ---
:1985 Author Organization [facility] Address [address] [place] [address] [place] [address]- Care Team Providers Name Role Phone Elier RICHARDSON, Carolien Connolly Primary Care Physician Encounter [facility] [place] Date(s): 01/24/20 - 03/09/[address] [place] [address]- [facility] Attending Physician: Marla GALLEGOS, Juani Solorio Allergies, Adverse Reactions, Alerts Substance Reaction Severity [...] 05/08/20 14:54:00 EST, 12/10/19 14:54:00 EDT, Tablet, [facility] #[id number], 165, cm, 12/04/19 10:31:00 EDT, Height, 55.1, kg, 11/17/19 3:58:00 EDT, Dry Weight Start Date: 12/10/19 Stop Date: 05/08/20 Status: Orderedbrava bararier seals [id number] brava bararier seals [id number], See Instructions, # 20 units, Refills 11, Tot. Refills 11, Maintenance,use as needed for ostomy care. Dx. ileostomy, 03/19/19 11:54:35 EDT, Compound Start Date: 03/19/19 Status: OrderedClonazepam = 2 mg, By Mouth, Daily at bedtime, 0 Refills, Maintenance, 02/10/18 8:43:20 EDT Start Date: 02/10/18 Status: Orderedcoloplast 89117 coloplast 06489, See Instructions, # 20 each, Refills 11, Tot. Refills 11, Maintenance, use as needed for ostomy care Dx. ileostomy, 03/19/19 11:53:12 EDT, Compound Start Date: 03/19/19 Status: Orderedcoloplast 70201 coloplast 31353, See Instructions, # 20 each, Refills 11, [...]
--- OUTSIDE RECORDS SUMMARY | 2022-06-21 15:51 | XMS_ITS | Continuity of Care Document ---
:1985 Author Organization [facility] Address [address] [place] [address], [address] [place] [address]- Care Team Providers Name Role Phone Elier RICHARDSON, Caroline Connolly Primary Care Physician [place] [facility] [place] - 07/18/[address], [address] [place], [place] [address] Allergies, Adverse Reactions, Alerts Substance Reaction Severity [...] tablet, 0 Refills, Acute, 06/23/20 16:47:00 EST, [facility] #[id number], 163, cm, 06/20/20 13:10:00 EST, Height, 50, kg, 05/08/20 13:34:00 EST, Dry Weight Start Date: 06/23/20 Status: Orderedbrava bararier seals [id number] brava bararier seals [id number], See Instructions, # 20 units, Refills 11, Tot. Refills 11, Maintenance,use as needed for ostomy care. Dx. ileostomy, 03/19/19 11:54:35 EDT, Compound Start Date: 03/19/19 Status: OrderedClonazepam = 2 mg, By Mouth, Daily at bedtime, 0 Refills, Maintenance, 02/10/18 8:43:20 EDT Start Date: 02/10/18 Status: Orderedcoloplast 71097 coloplast 11079, See Instructions, # 20 each, Refills 11, Tot. Refills 11, Maintenance, use as needed for ostomy care Dx. ileostomy, 03/19/19 11:53:12 EDT, Compound Start Date: 03/19/19 Status: Orderedcoloplast 06025 coloplast 07820, See Instructions, # 20 each, Refills 11, [...] 06/04/20 16:00:00 EST, Route to Pharmacy Electronically, [facility]... Start Date: 06/04/20 Stop Date: 09/02/20 [...]
--- OUTSIDE RECORDS SUMMARY | 2022-06-21 15:51 | XMS_ITS | Continuity of Care Document ---
:1985 Author Organization [facility] Address [address] [place] [address]- Care Team Providers Name Role Phone Elier RICHARDSON, Caroline Connolly Primary Care Physician Encounter [facility] [place] Date(s): 05/12/20 - 06/11/20 [facility] [address] [place] [id number] Allergies, Adverse Reactions, Alerts Substance Reaction [...] Start Date: 02/10/18 Status: Orderedbrava bararier seals [id number] brava bararier seals [id number], See Instructions, # 20 units, Refills 11, Tot. Refills 11, Maintenance,use as needed for ostomy care. Dx. ileostomy, 03/19/19 11:54:35 EDT, Compound Start Date: 03/19/19 Status: OrderedClonazepam = 2 mg, By Mouth, Daily at bedtime, 0 Refills, Maintenance, 02/10/18 8:43:20 EDT Start Date: 02/10/18 Status: Orderedcoloplast 37030 coloplast 59402, See Instructions, # 20 each, Refills 11, Tot. Refills 11, Maintenance, use as needed for ostomy care Dx. ileostomy, 03/19/19 11:53:12 EDT, Compound Start Date: 03/19/19 Status: Orderedcoloplast 12520 coloplast 43325, See Instructions, # 20 each, Refills 11, [...] 06/04/20 16:00:00 EST, Route to Pharmacy Electronically, [facility]... Start Date: 06/04/20 Stop [...]
--- OUTSIDE RECORDS SUMMARY | 2022-06-21 15:51 | XMS_ITS | Continuity of Care Document ---
:1985 Author Organization [facility] Address [address] [place] [address]- Care Team Providers Name Role Phone Caroline Thapa MD Primary Care Physician Encounter [facility] [place] [facility] [id number] Date(s): 06/12/20 - 08/28/20 [facility] [address] [place] [address] Attending Physician: Channing Armenta MD Admitting Physician: Channing Armenta MD Referring Physician: Caroline Thapa MD Allergies, [...] tablet, 0 Refills, Acute, 07/31/20 8:52:00 EST, [facility] #[id number], 163, cm, 07/08/20 13:37:00 EST, Height, 50, kg, 05/08/20 13:34:00 EST, Dry Weight Start Date: 07/31/20 Status: Orderedbrava bararier seals [id number] brava bararier seals [id number], See Instructions, # 20 units, Refills 11, Tot. Refills 11, Maintenance,use as needed for ostomy care. Dx. ileostomy, 03/19/19 11:54:35 EDT, Compound Start Date: 03/19/19 Status: OrderedClonazepam = 2 mg, By Mouth, Daily at bedtime, 0 Refills, Maintenance, 02/10/18 8:43:20 EDT Start Date: 02/10/18 Status: Orderedcoloplast 36421 coloplast 68731, See Instructions, # 20 each, Refills 11, Tot. Refills 11, Maintenance, use as needed for ostomy care Dx. ileostomy, 03/19/19 11:53:12 EDT, Compound Start Date: 03/19/19 Status: Orderedcoloplast 92725 coloplast 45909, See Instructions, # 20 each, Refills 11, [...] 06/04/20 16:00:00 EST, Route to Pharmacy Electronically, [facility]... Start Date: 06/04/20 Stop [...]
--- OUTSIDE RECORDS SUMMARY | 2022-06-21 15:51 | XMS_ITS | Continuity of Care Document ---
:1985 Author Organization [facility] [employer] [facility] Address [address] [place] [address], [address] [place] [address]- Care Team Providers Name Role Phone Elier RICHARDSON, Caroline Connolly Primary Care Physician En[place] [facility] [place] Date(s): 07/08/20 - 08/07/20 [facility] [address] [place] [address], [address] [place] [address]- Allergies, Adverse Reactions, Alerts Substance Reaction Severity [...] tablet, 0 Refills, Acute, 07/31/20 8:52:00 EST, [facility] #[id number], 163, cm, 07/08/20 13:37:00 EST, Height, 50, kg, 05/08/20 13:34:00 EST, Dry Weight Start Date: 07/31/20 Status: Orderedbrava bararier seals [id number] brava bararier seals 359406, See Instructions, # 20 units, Refills 11, Tot. Refills 11, Maintenance,use as needed for ostomy care. Dx. ileostomy, 03/19/19 11:54:35 EDT, Compound Start Date: 03/19/19 Status: OrderedClonazepam = 2 mg, By Mouth, Daily at bedtime, 0 Refills, Maintenance, 02/10/18 8:43:20 EDT Start Date: 02/10/18 Status: Orderedcoloplast 02881 coloplast 30871, See Instructions, # 20 each, Refills 11, Tot. Refills 11, Maintenance, use as needed for ostomy care Dx. ileostomy, 03/19/19 11:53:12 EDT, Compound Start Date: 03/19/19 Status: Orderedcoloplast 38682 coloplast 85133, See Instructions, # 20 each, Refills 11, [...] 06/04/20 16:00:00 EST, Route to Pharmacy Electronically, [facility] Start Date: 06/04/20 Stop Date: [...]
--- OUTSIDE RECORDS SUMMARY | 2022-06-21 15:52 | XMS_ITS | Continuity of Care Document ---
:1985 Author Organization [facility] Address [address] [place] [address]- Care Team Providers Name Role Phone Elier RICHARDSON, Caroline Connolly Primary Care Physician [place] [facility] [place] 12/26/20 - 12/31/[address] [address]- Encounter Diagnosis Superior mesenteric artery syndrome (Final) - 12/26/20 Gastric distention (Final) - 12/28/20 Discharge Disposition: A-D/C Home Attending Physician: Monster RICHARDSON, Angi Brooks Admitting Physician: Delmi Hurley MD Referring Physician: Not on Staff, Referring [...] 90 tablet, 0 Refills, Acute, 07/31/20 8:52:00 [facility] #[id number], 163, cm, 07/08/20 13:37:00 EST, Height, 50, kg, 05/08/20 13:34:00 EST, Dry Weight Start Date: 07/31/20 Status: Orderedbethanechol 25 mg oral tablet 25 mg, 1, tablet, By Mouth, 3 times a day, for 30 days, # 90 tablet, Refills 4, Tot. Refills 4, Acute 02/13/21 14:38:00 EDT, 09/16/20 14:38:00 EDT, Route to Pharmacy Electronically, [facility] #[id number], Partial fill upon patient request if the... Start Date: 09/16/20 Stop Date: 02/13/21 Status: Orderedbrava bararier seals [id number] brava bararier seals [id number], See Instructions, # 20 units, Refills 11, Tot. Refills 11, Maintenance,use as needed for ostomy care. Dx. ileostomy, 03/19/19 11:54:35 EDT, Compound Start Date: 03/19/19 Status: OrderedClonazepam = 2 mg, By Mouth, Daily at bedtime, 0 Refills, Maintenance, 02/10/18 8:43:20 EDT Start Date: 02/10/18 Status: Orderedcoloplast 27484 coloplast 09460, See Instructions, # 20 each, Refills 11, Tot. Refills 11, Maintenance, use as needed for ostomy care Dx. ileostomy, 03/19/19 11:53:12 EDT, Compound Start Date: 03/19/19 Status: Orderedcoloplast 63076 coloplast 91941, See Instructions, # 20 each, Refills 11, [...] tablet, 6 Refills, Maintenance, 11/17/20 12:53:00 EDT, [facility] #[id number], Partial fill upon patientrequest if the prescription [...] 04/30/21 9:30:00 EDT, 12/31/20 9:30:00 EDT, Tablet, [facility] #76109, Partial fill upon patient request if the [...] 12/31/20 9:30:00 EDT, Route to Pharmacy Electronically, [facility] #[id number],Partial fill upon patient request if the prescrip... Start Date: 12/31/20 Stop Date: 01/14/21 Status: OrderedToradol Inj 15 mg, Injection, IV Push Slowly, 12/31/20 10:00:00 EDT, Stop date 12/31/20 10:00:00 EDT Start Date: 12/31/20 Stop Date: 12/31/20 Status: CompletedtraZODone 100 mg oral tablet 100 mg, 1, [...] Active disorder)(Confirmed) Herniated lumbar intervertebral Active disc(Confirmed) Results Radiology Reports Exam Date Time Procedure Performing Provider Status 12/31/20 6:59 AM Abdomen AP Xiomy El; Auth ([facility] ed) Notes:(Abdomen AP) Reason For Exam: Other:RESULT: XR Abdomen AP XR Abdomen AP only INDICATION/CLINICAL QUESTION: Evaluate for gastric distention. . 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 CT angiogram yesterday performed because of clinical concern for SMA syndrome. COMPARISON: None FINDINGS: Right mid abdominal ostomy and surgical staple line. Normal gas pattern without evidence of obstruction. No gastric distention. No organomegaly, masses or calcifications. No evidence of pneumoperitoneum. Normal bones. Clear lung bases. IMPRESSION: Normal. A Document Only message has been documented in the iPipeline system for Fernanda MORILLO on 12/31/2020 2:00 PM, Message ID [id number]. WSN: [id number] Ordering Physician: Fernanda Gorman Dictated By: Cam Gracia MD Dictated Date/Time: 12/31/20 2:00 pm Reviewed By: Cam Gracia MD Signed By: Cam Gracia MD Signed Date/Time: 12/31/20 2:00 pm Transcribed By: TONE Transcribed Date/Time: 12/31/20 1:55 pm Exam Date Time Procedure Performing Provider Status 12/26/20 3:00 PM Chest 2 Views Frontal and Lat Matt Spears; Auth (Verified) Notes:(Chest 2 Views Frontal and Lat) Reason For Exam: Shortness of Breath RESULT: Chest 2 Views Frontal and Lat Chest 2 Views Frontal and Lat Hx of Present Illness: Pt reports increased ostomy output yesterday followed by n v and severe abd cramping. pain rates 9 10; +assoc. abd distention; straight caths for urine and urine is reportedly bright orange - lmp 4 21-; Reason: Shortness of Breath; Clinical Question(s): CHF COMPARISON: 08/09/2019 FINDINGS: Gastric distention with gastric air-fluid level. No acute cardiopulmonary process IMPRESSION: No acute cardiopulmonary process. Gastric distention with air-fluid level. WSN: [id number] Ordering Physician: Chester Schrader Dictated By: Maximo Argueta MD Dictated Date/Time: 12/26/20 3:06 pm Reviewed By: Maximo Argueta MD Signed By: Maximo Argueta MD Signed Date/Time: 12/26/20 3:06 pm Transcribed By: TONE Transcribed Date/Time: 12/26/20 3:05 pm Vital Signs Most recent to oldest 1 2 3 [Reference Range]: Weight 48.6 kg 48.6 kg (12/26/20 1:51 PM) (12/26/20 12:29 PM) Oxygen Saturation [94-100 98 % 98 % 100 % %] (12/31/20 7:53 AM) (12/31/20 3:39 AM) (12/30/20 7:2 8 PM) Pulse Rate [55-90 bpm] 91 bpm 59 bpm 62 bpm *H* (12/31/20 3:39 AM) (12/30/20 7:28 PM) (12/31/20 7:53 AM) Blood Pressure 125/79 mm Hg 101/55 mm Hg 91/59 mm Hg [90-138/55-84 mm Hg] (12/31/20 7:53 AM) (12/31/20 3:39 AM) ( 1 7:28 PM) Respiratory Rate [16-30 18 br/min 18 br/min 18 br/mi n br/min] (12/31/20 10:23 AM) (12/31/20 7:53 AM) (12/31/20 3: 39 AM) Temperature [96.8-100.4 97.4 DegF 97.9 DegF 98.3 Deg F DegF] (12/31/20 7:53 AM) (12/31/20 3:39 AM) (12/30/20 7:2 8 PM) Mode of Delivery (Oxygen) Room air Room air Room a ir (12/31/20 7:53 AM) (12/31/20 3:39 AM) (12/30/20 7:2 8 PM) Blood pressure sites Arm, right Arm, left Arm, left (12/31/20 7:53 AM) (12/31/20 3:39 AM) (12/30/20 7:2 8 PM) Temperature Route Oral Oral Oral (12/31/20 7:53 AM) (12/31/20 3:39 AM) (12/30/20 7:2 8 PM) Dry Weight 48.6 kg 48.6 kg (12/26/20 1:51 PM) (12/26/20 12:29 PM) Weight Obtained Via Patient/family stated (12/26/20 12:29 PM) Dry Weight Obtained Via Patient/family stated (12/26/20 12:29 PM) Social History Social History Type Response Tobacco Use: 4 or less cigarettes(le ss than 1/4 pack)/day in last 30 days. Sex Female
--- OUTSIDE RECORDS SUMMARY | 2022-06-21 15:52 | XMS_ITS | Continuity of Care Document ---
:1985 Author Organization [facility] Address [address] [place] [address] [place] [address]- Care Team Providers Name Role Phone Caroline Thapa MD Primary Care Physician Encounter [facility] [place] Date(s): 07/29/20 - 08/28/[address] [place] [id number] Allergies, Adverse Reactions, Alerts Substance Reaction [...] tablet, 0 Refills, Acute, 07/31/20 8:52:00 EST, [facility] #[id number], 163, cm, 07/08/20 13:37:00 EST, Height, 50, kg, 05/08/20 13:34:00 EST, Dry Weight Start Date: 07/31/20 Status: Orderedbrava bararier seals [id number] brava bararier seals 633507, See Instructions, # 20 units, Refills 11, Tot. Refills 11, Maintenance,use as needed for ostomy care. Dx. ileostomy, 03/19/19 11:54:35 EDT, Compound Start Date: 03/19/19 Status: OrderedClonazepam = 2 mg, By Mouth, Daily at bedtime, 0 Refills, Maintenance, 02/10/18 8:43:20 EDT Start Date: 02/10/18 Status: Orderedcoloplast 45686 coloplast 57163, See Instructions, # 20 each, Refills 11, Tot. Refills 11, Maintenance, use as needed for ostomy care Dx. ileostomy, 03/19/19 11:53:12 EDT, Compound Start Date: 03/19/19 Status: Orderedcoloplast 19429 coloplast 17831, See Instructions, # 20 each, Refills 11, [...] 06/04/20 16:00:00 EST, Route to Pharmacy Electronically, [facility] Start Date: 06/04/20 Stop Date: [...]
--- OUTSIDE RECORDS SUMMARY | 2022-06-21 15:52 | XMS_ITS | Continuity of Care Document ---
:1985 Author Organization [facility] Address [address] [place] [address]- Care Team Providers Name Role Phone Elier RICHARDSON, Caroline Connolly Primary Care Physician [place] [facility] [place]/26/20 - 01/26/[address] [address] [facility] Encounter Diagnosis Gastroenteritis (Final) - 01/26/20 Dehydration (Final) - 01/26/20 Discharge Disposition: A-D/C Home Attending Physician: Raul Hernandez MD Admitting Physician: Raul Hernandez MD Referring Physician: Not on Staff, Referring [...] 05/08/20 14:54:00 EST, 12/10/19 14:54:00 EDT, Tablet, [facility] #[id number], 165, cm, 12/04/19 10:31:00 EDT, Height, 55.1, kg, 11/17/19 3:58:00 EDT, Dry Weight Start Date: 12/10/19 Stop Date: 05/08/20 Status: Orderedbethanechol 5 mg oral tablet 1 tablet = 5 mg, By Mouth, 3 times a day, for 30 days, # 90 tablet, 3 Refills, Acute 02/27/20 16:14:00 EDT, 10/30/19 16:14:00 EDT, Tablet, [facility] #77889, 130, cm, 09/07/19 16:17:00 EST, Height, 50.6, kg, 08/10/19 17:18:00 EST, Dry Weight Start Date: 10/30/19 Stop Date: 02/27/20 Status: Orderedbrava bararier seals [id number] brava bararier seals [id number], See Instructions, # 20 units, Refills 11, Tot. Refills 11, Maintenance,use as needed for ostomy care. Dx. ileostomy, 03/19/19 11:54:35 EDT, Compound Start Date: 03/19/19 Status: OrderedClonazepam = 2 mg, By Mouth, Daily at bedtime, 0 Refills, Maintenance, 02/10/18 8:43:20 EDT Start Date: 02/10/18 Status: Orderedcoloplast 10267 coloplast 68877, See Instructions, # 20 each, Refills 11, Tot. Refills 11, Maintenance, use as needed for ostomy care Dx. ileostomy, 03/19/19 11:53:12 EDT, Compound Start Date: 03/19/19 Status: Orderedcoloplast 80761 coloplast 35411, See Instructions, # 20 each, Refills 11, [...] 08/22/18 12:54:29 EST Start Date: 08/22/18 Status: OrderedImodium A-D 2 mg oral tablet 2 mg, 1, tablet, By Mouth, Daily at bedtime, PRN, # 30 tablet, Refills 3, Tot. Refills 3, Maintenance, Diarrhea, 12/24/19 11:37:00 EDT, Route to Pharmacy Electronically, [facility] #41786, 165.1, cm, 12/18/19 9:25:00 EDT, Height, 55.1, kg, 0... Start Date: 12/24/19 Status: OrderedIndoor/Outdoor Allergy Relief = 10 mg, By Mouth, Daily, 0 Refills, Maintenance, 12/07/19 12:00:00 EDT Start Date: 12/07/19 Status: OrderedMorphine Sulfate ADD-Rillito 0 Refills, Maintenance, 12/07/19 12:00:00 EDT, Partial [...] 3 [Reference Range]: Oxygen Saturation [94-100 %] 98 % 96 % 100 % (01/26/20 9:19 PM) (01/26/20 6:59 PM) (01/26/20 3:2 8 PM) Pulse Rate [55-90 bpm] 72 bpm 78 bpm 75 bpm (01/26/20 9:19 PM) (01/26/20 6:59 PM) (01/26/20 3:2 8 PM) Blood Pressure [90-138/55-84 mm 115/72 mm Hg 117/76 mm Hg 119/79 mm Hg Hg] (01/26/20 9:19 PM) (01/26/20 6:59 PM) (01/26/20 3:2 8 PM) Respiratory Rate [16-30 br/min] 18 br/min 17 br/min 15 br/min (01/26/20 9:19 PM) (01/26/20 6:59 PM) *L* (01/26/20 3:28 PM ) Temperature [96.8-100.4 DegF] 97.8 DegF (01/26/20 3:28 PM) Mode of Delivery (Oxygen) Room air Room air Room a ir (01/26/20 9:19 PM) (01/26/20 6:59 PM) (01/26/20 3:2 8 PM) Blood pressure sites Arm, left Arm, right (01/26/20 6:59 PM) (01/26/20 3:28 PM) Temperature Route Oral (01/26/20 3:28 PM) Social History Social History Type Response Tobacco Use: 4 or less cigarettes(le ss than 1/4 pack)/day in last 30 days. Sex
--- OUTSIDE RECORDS SUMMARY | 2022-06-21 15:52 | XMS_ITS | Continuity of Care Document ---
:1985 Author Organization [facility] [employer] [facility] Address [address] [place] [address], [address] [place] [address]- Care Team Providers Name Role Phone Elier RICHARDSON, Caroline Connolly Primary Care Physician [place] [facility] [place] [id number] Date(s): 07/15/20 - 08/14/20 [facility] [employer] [facility] [address] [place] [address], [address] [place] [address]- Attending Physician: Jolynn Loob Admitting Physician: AdmJolynn cruz Referring Physician: Admtr [...] tablet, 0 Refills, Acute, 07/31/20 8:52:00 EST, [facility] #[id number], 163, cm, 07/08/20 13:37:00 EST, Height, 50, kg, 05/08/20 13:34:00 EST, Dry Weight Start Date: 07/31/20 Status: Orderedbrava bararier seals 147363 brava bararier seals [id number], See Instructions, # 20 units, Refills 11, Tot. Refills 11, Maintenance,use as needed for ostomy care. Dx. ileostomy, 03/19/19 11:54:35 EDT, Compound Start Date: 03/19/19 Status: OrderedClonazepam = 2 mg, By Mouth, Daily at bedtime, 0 Refills, Maintenance, 02/10/18 8:43:20 EDT Start Date: 02/10/18 Status: Orderedcoloplast 56022 coloplast 49632, See Instructions, # 20 each, Refills 11, Tot. Refills 11, Maintenance, use as needed for ostomy care Dx. ileostomy, 03/19/19 11:53:12 EDT, Compound Start Date: 03/19/19 Status: Orderedcoloplast 23086 coloplast 28028, See Instructions, # 20 each, Refills 11, [...] 06/04/20 16:00:00 EST, Route to Pharmacy Electronically, [facility] Start Date: 06/04/20 Stop [...]
--- OUTSIDE RECORDS SUMMARY | 2022-06-21 15:52 | XMS_ITS | Continuity of Care Document ---
:1985 Author Organization [facility] nter Address [address] [place] [id number]- Care Team Providers Name Role Phone Elier RICHARDSON, Caroline Connolly Primary Care Physician Encounter [facility] Date(s): 05/17/22 - 05/18/[address] [address]- Encounter Diagnosis High output ileostomy (Final) - 05/17/22 Discharge Disposition: A-D/C Home Attending Physician: Margaret Hayward MD Admitting Physician: Estrella RICHARDSON, Twan Lowe Referring Physician: Not on Staff, Referring MD [...] Date: 05/17/22 Stop Date: 05/27/22 Status: Orderedbenztropine 0.5 mg oral tablet 0.5 mg, 1, tablet, By Mouth, 2 times a day, # 30 tablet, Refills 0, Maintenance, 05/17/22 22:14:00 EST, Partial fill upon patient request if the prescription is for a schedule II opioid drug. Start Date: 05/17/22 Status: OrderedCatheter Supplies See Instructions, # 210 each, Maintenance, Perform straight catheterization as needed up to 7 times daily, 05/10/22 14:54:00 EST, DX code: R33.9, Supply Start Date: 05/10/22 Status: OrderedClonazepam = 2 mg, By Mouth, Daily at bedtime, 0 Refills, Maintenance, 02/10/18 8:43:20 EDT Start Date: 02/10/18 Status: OrderedcloNIDine 0.1 mg oral tablet 0.1 [...] opioid drug. Start Date: 05/17/22 Status: Orderedgabapentin 400 mg oral capsule 800 mg, Capsule, By Mouth, 05/18/22 9:00:00 EST Start Date: 05/18/22 Stop Date: 05/18/22 Status: Completedgabapentin 800 mg oral tablet 1 [...] II opioid drug. Start Date: 05/17/22 Status: OrderedSerum Magnesium levels in a week [...] intervertebral disc Syncope and collapse Confirmed Active Vital Signs Most recent to oldest 1 2 3 [Reference Range]: Height 163 cm 163 cm 163 cm (05/18/22 12:08 PM) (05/18/22 8:16 AM) (05/18/22 12:07 AM) Weight 51.7 kg 51.7 kg 52 kg (05/17/22 10:36 PM) (05/17/22 9:13 PM) (05/17/22 5:45 PM) Oxygen Saturation [94-100 99 % 100 % 99 % %] (05/18/22 12:08 PM) (05/18/22 8:16 AM) (05/18/22 12:07 AM) Pulse Rate [55-90 bpm] 76 bpm 69 bpm 88 bpm (05/18/22 12:08 PM) (05/18/22 8:16 AM) (05/18/22 12:07 AM) Body Mass Index 19.46 kg/m2 19.46 kg/m2 [18.5-24.99 kg/m2] (05/17/22 10:36 PM) (05/17/22 9:13 PM) Blood Pressure 101/62 mm Hg 101/58 mm Hg 109/68 mm Hg [90-138/55-84 mm Hg] (05/18/22 12:08 PM) (05/18/22 8:16 AM) ( 12:07 AM) Respiratory Rate [16-30 16 br/min 16 br/min 16 br/mi n br/min] (05/18/22 12:08 PM) (05/18/22 11:39 AM) ( 10:44 AM) Temperature [96.8-100.4 98.1 DegF 98.1 DegF 97.9 Deg F DegF] (05/18/22 12:08 PM) (05/18/22 8:16 AM) (05/18/22 12:07 AM) Liters per Minute 0 L/min 0 L/min (05/18/22 12:08 PM) (05/18/22 8:16 AM) Mode of Delivery (Oxygen) Room air Room air Room a ir (05/18/22 12:08 PM) (05/18/22 8:16 AM) (05/18/22 12:07 AM) Blood pressure sites Arm, left Arm, left Arm, left (05/18/22 12:08 PM) (05/18/22 8:16 AM) (05/18/22 12:07 AM) Temperature Route Oral Oral Oral (05/18/22 12:08 PM) (05/18/22 8:16 AM) (05/18/22 12:07 AM) Dry Weight 51.7 kg 52 kg (05/17/22 10:36 PM) (05/17/22 5:45 PM) Weight Obtained Via Bed scale Bed scale Patient/fami ly stated (05/17/22 10:36 PM) (05/17/22 9:13 PM) (05/17/22 5:45 PM) Dry Weight Obtained Via Patient/family stated (05/17/22 5:45 PM) Social History Social History Type Response Smoking Status Former smoker, quit more julianna n 30 days ago; Other: quit about 2 years ago; entered on: 05/17/22 Sex Admission evaluation note Estrella RICHARDSON, Twan Lowe: MODIFY, PERFORM, MODIFY, MODIFY, MODIFY, MODIFY, MODIFY, MODIFY, MODIFY, MODIFY Event Display: Admission Note Authored Date: [id number] Patient: ??KATHARINA WELDON ? Age:??36 Years?Sex:??Female?:??1985?? 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??who presented today to the ED??due to??high output from ileostomy ?Pre-Hospital course: ?-Patient presented yesterday to the ED and was found to have partial small bowel obstruction but she got better while in the ED and was discharged Patient reported that since yesterday she had multiple high-frequency watery output from ileostomy,she reported that her abdominal pain is better than yesterday, she was referred to the ED as rehab facility felt that they could not manage high output ileostomy ?-Patient denied fever/chills, chest pain, palpitations, presyncope/syncope, nausea/vomiting, diarrhea/constipation, weight gain, lower extremity edema, or motor/sensory deficits. ?-there have been no recent changes in the patient's diet, medication, or activity. ?ED course: ?On presentation to the ED vitals are stable Labs are significant for normal CBC, sodium 131, normal UA CT abdomen done on the :Marked gaseous distention of stomach and numerous loops of jejunum, with slow motility of ingested oral contrast in the stomach and these bowel loops. There is also distention of bowel loops beyond the column of contrast, with maximum diameter of small bowel loops about 3.6 cm. The appearance of the bowel and stomach are different than on earlier CTs, suggesting partial obstruction with transition point in the right lower quadrant proximal to the ostomy. Nonspecific mild mesenteric lymphadenopathy. In the ED patient received IV fluids Patient be admitted for further management of possible partial small bowel obstruction, high outputileostomy Review of Systems A full review of systems was completed and is otherwise negative except as mentioned in history of present illness.?? Objective Vital Signs?? Temperature: 100.2 DegF (05/17/22 17:45:00) Temperature Route: Oral (05/17/22 17:45:00) Pulse Rate:??109 bpm??High (05/17/22 17:45:00) Respiratory Rate: 18 br/min (05/17/22 17:45:00) Systolic Blood Pressure: 130 mm Hg (05/17/22 17:45:00) Diastolic Blood Pressure:??103 mm Hg??High (05/17/22 17:45:00) Blood pressure sites: Arm, right (05/17/22 17:45:00) Mean Arterial Pressure: 112 mm Hg (05/17/22 17:45:00) Pulse Pressure: 27 mm Hg (05/17/22 17:45:00) Oxygen Saturation: 100 % (05/17/22 17:45:00) Mode of Delivery (Oxygen): Room air (05/17/22 17:45:00) ? Physical Exam ?General: AAOx3, in no acute distress ?Neuro: CN 2-12 grossly intact, motor strength 5/5 in all extremities, no sensory deficits?HEENT: EOMI, PERRL, mouth/nose/pharynx WNL ?Neck: Supple, no LAD, JVD not congested ?Heart: Normal S1/S2, RRR, no MRGs ?Lungs: CTA b/l, no rales, rhonchi, wheezing or rubs ?Abdomen: +BS, soft, non-tender.non Distended. ?Extremities: Warm, no edema b/l. ?Musculoskeletal:??Joints (no swelling, denies tenderness). ? 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 Possible partial small bowel obstruction High output from??ileostomy: -Patient presented yesterday to the ED and was found to have partial small bowel obstruction but she got better while in the ED and was discharged Patient reported that since yesterday she had multiple high-frequency watery output from ileostomy,she reported that her abdominal pain is better than yesterday, she was referred to the ED as rehab facility felt that they could not manage high output ileostomy ?On presentation to the ED vitals are stable Labs are significant for normal CBC, sodium 131, normal UA CT abdomen done on the :Marked gaseous distention of stomach and numerous loops of jejunum, with slow motility of ingested oral contrast in the stomach and these bowel loops. There is also distention of bowel loops beyond the column of contrast, with maximum diameter of small bowel loops about 3.6 cm. The appearance of the bowel and stomach are different than on earlier CTs, suggesting partial obstruction with transition point in the right lower quadrant proximal to the ostomy. Nonspecific mild mesenteric lymphadenopathy. In the ED patient received IV fluids ?? Plan: Gentle hydration Consider following with general surgery in the morning for further recommendations Ostomy care ?? Hyponatremia: Gentle hydration as above ?? chronic medical conditions: Depression, obsessive compulsive disorder: Continue home meds ?QM: ?Code status:??Full ?DVT prophylaxis:??Enoxaparin ?Diet:??Cardiac ? Histories Allergies Allergies ?(Active and Proposed Allergies Only) Topamax? (Severity: Unknown severity, Onset: Unknown) Thorazine? (Severity: Unknown severity, Onset: Unknown) ?Reactions: thorat closes Lamictal? (Severity: Unknown severity, Onset: Unknown) ?Reactions: rash sulfa drugs? (Severity: Unknown severity, Onset: Unknown) ?Reactions: hives Geodon? (Severity: Unknown severity, Onset: Unknown) ?Reactions: psychosis Buspar? (Severity: Unknown severity, Onset: Unknown) ?Reactions: rash ?Comments: rash ? Past Medical History/Problem List Active Problems??(13) Anxiety Colonic inertia s/p total colectomy and ileostomy placement 10/2018 Depression Eating disorder Fibromyalgia Herniated lumbar intervertebral disc Hypotension Metabolic alkalosis OCD (obsessive compulsive disorder) Opiate use Syncope and collapse Transaminitis Underweight ? Past Surgical History Upper gastrointestinal endoscopy: 12/18/19 Colectomy Delorme's operation on rectum ? Social History Alcohol Details:??Use: Current. ??Frequency: 1-2 times per month. Employment/School Details:??Status: Unemployed. Exercise Details:??Self assessment: Fair condition. Home/Environment Details:??Living situation: Home/Independent. ??Lives with: Significant other. Nutrition/Health Details:??Diet: ostemy diet. Sexual Details:??Sexually involved in last 6 months: Yes. ??Gender identity: Identifies as female. Substance Abuse Details:??Use: Past. Tobacco Details:??Use: 4 or less cigarettes(less than 1/4 pack)/day in last 30 days. Details:??Use: 4 or less cigarettes(less than 1/4 pack)/day in last 30 days. ? Family History Mat. Grandfather: Heart attack ? Medications Home Medications Clonazepam?2?Milligram?By Mouth?Daily at bedtime Duloxetine (duloxetine 60 mg oral enteric coated capsule)?1?capsule?60?Milligram?By Mouth?Daily Durable Medical Equipment (Catheter Supplies)?See Instructions?Perform straight catheterization as needed up to 7 ??times daily Gabapentin (gabapentin 800 mg oral tablet)?1?tab(s)?800?Milligram?By Mouth?Daily at bedtime?200mg in am; 200mg at noon and 800mg at hs Metoclopramide (Reglan 5 mg oral tablet)?1?tab(s)?5?Milligram?By Mouth?3 times a day before meals and bedtime?Take when you wake up, after lunch, and before bed. Miscellaneous Rx (Serum Magnesium levels in a week)?See Instructions?Lab test to be performedin a week Miscellaneous Rx (LFT in a week, results to PCP)?See Instructions?Lab test to be performed joshua week Trazodone (traZODone 100 mg oral tablet)?100?Milligram?1?tablet?By Mouth?Daily atbedtime Zolpidem (Ambien 10 mg oral tablet)?1?tab(s)?10?Milligram?By Mouth?Daily at bedtime ? Results Recent Labs BLOOD COUNT & DIFF WBC 6.1 k/mm3 ()?? 05/17/2022 18:29 RBC 4.37 m/mm3 ()?? 05/17/2022 18:29 Hgb 13.1 Gm/dL ()?? 05/17/2022 18:29 Hct 39.1 % ()?? 05/17/2022 18:29 MCV 89.5 femtoliters ()?? 05/17/2022 18:29 MCH 30.0 pg ()?? 05/17/2022 18:29 MCHC 33.5 g/dL ()?? 05/17/2022 18:29 Platelet Count 296 k/mm3 ()?? 05/17/2022 18:29 RDW-SD 44.7 femtoliters ()?? 05/17/2022 18:29 MPV 10.0 femtoliters ()?? 05/17/2022 18:29 Nucleated RBC (Automated) 0.0 #/100 WBC'S ()?? 05/17/2022 18:29 Abs. NRBC 0.0 k/mm3 ()?? 05/17/2022 18:29 Abs. Neut 3.4 k/mm3 ()?? 05/17/2022 18:29 Abs. Lymph 1.8 k/mm3 ()?? 05/17/2022 18:29 Abs. [place] 0.7 k/mm3 ()?? 05/17/2022 18:29 Abs. Eo 0.1 k/mm3 ()?? 05/17/2022 18:29 Abs. Baso 0.0 k/mm3 ()?? 05/17/2022 18:29 Neut % 55.9 % ()?? 05/17/2022 18:29 Lymph % 29.8 % ()?? 05/17/2022 18:29 [place] % 11.6 % (High)?? 05/17/2022 18:29 Eos % 2.3 % ()?? 05/17/2022 18:29 Baso % 0.2 % ()?? 05/17/2022 18:29 Imm Gran 0.2 % ()?? 05/17/2022 18:29 Abs. Imm Gran 0.0 k/mm3 ()?? 05/17/2022 18:29 ?? CHEM GENERAL Sodium 131 mmol/L (Low)?? 05/17/2022 18:29 Potassium 4.8 mmol/L ()?? 05/17/2022 18:29 Chloride 98 mmol/L ()?? 05/17/2022 18:29 Bicarbonate Level 23 mmol/L ()?? 05/17/2022 18:29 Anion Gap 10 ()?? 05/17/2022 18:29 Glucose Level 91 mg/dL ()?? 05/17/2022 18:29 BUN 14 mg/dL ()?? 05/17/2022 18:29 Creatinine-Blood 0.7 mg/dL ()?? 05/17/2022 18:29 Estimated GFR Creatinine 111 ML/MIN/1.73 M2 ()?? 05/17/2022 18:29 Calcium 10.0 mg/dL ()?? 05/17/2022 18:29 Magnesium 1.7 mg/dL ()?? 05/16/2022 12:07 Protein, Total 8.1 Gm/dL ()?? 05/17/2022 18:29 Albumin 4.6 Gm/dL ()?? 05/17/2022 18:29 AG Ratio 1.3 ()?? 05/17/2022 18:29 Alkaline Phosphatase 60 units/L ()?? 05/17/2022 18:29 Lipase 21 units/L ()?? 05/16/2022 12:07 AST (SGOT) 19 units/L ()?? 05/17/2022 18:29 ALT (SGPT) 15 units/L ()?? 05/17/2022 18:29 Bilirubin, Total 0.5 mg/dL ()?? 05/17/2022 18:29 Lactate 1.7 mmol/L ()?? 05/17/2022 18:29 ?? ENDOCRINE/TUMOR MARKER Blood <1 mIU/mL ()?? 05/16/2022 12:07 ?? FLUID STUDIES Hold Other SPECIMEN DISCARDED AFTER 1 WEEK ()?? 05/16/2022 12:07 ?? HEME OTHER Hold Blue Top SPECIMEN DISCARDED AFTER 4 HOURS. ()?? 05/17/2022 18:29 ?? MISC. CHEMISTRY Hold Gel Top SPECIMEN DISCARDED AFTER 1 WEEK ()?? 05/17/2022 18:29 ?? UA/URINALYSIS Appear/Color, Urine LIGHT YELLOW ()?? 05/17/2022 18:10 Clarity CLEAR (N)?? 05/17/2022 18:10 Specific [place], Urine <1.005 ()?? 05/17/2022 18:10 pH, Urine 5.5 ()?? 05/17/2022 18:10 Albumin, Urine NEGATIVE (N)?? 05/17/2022 18:10 Glucose, Urine NEGATIVE (N)?? 05/17/2022 18:10 Ketones, Urine NEGATIVE (N)?? 05/17/2022 18:10 Bilirubin, Urine NEGATIVE (N)?? 05/17/2022 18:10 Hemoglobin, Urine NEGATIVE (N)?? 05/17/2022 18:10 Nitrite, Urine NEGATIVE (N)?? 05/17/2022 18:10 Leukocyte, Urine NEGATIVE (N)?? 05/17/2022 18:10 Urobilinogen NORMAL mg/dL (N)?? 05/17/2022 18:10 Hold Urine Culture Testing available 48 hours from time of collection. ()?? 05/17/2022 18:10 ?? VIROLOGY Influenza A PCR NEGATIVE ()?? 05/16/2022 11:56 Influenza B PCR NEGATIVE ()?? 05/16/2022 11:56 RSV PCR NEGATIVE ()?? 05/16/2022 11:56 COVID-19 PCR Specimen Source NASAL ()?? 05/16/2022 11:56 COVID-19 PCR Result NEGATIVE ()?? 05/16/2022 11:56 ? Hospital Progress note Robyn Shafer RN: PERFORM, SIGN, VERIFY Event Display: Progress Note Hospital Authored Date: Patient: KATHARINA WELDON Age: 36 years Sex: Female : 1985 Associated Diagnoses: None Author: Robyn Shafer RN Findings Problem Related to Alteration in Gastrointestinal : Alteration in Gastrointestinal Func/new 05/18/2022 9:00 EST Alteration in GI status Related to Diarrhea, Other: Possible partial SBO Goals & Outcomes, Gastrointestinal Establish a regular pattern of elimination for pt, Nutritional intake is adequate for metabolic needs, Pt will achieve normal/improved fluid balance, Pt will maintain adequate GI function appropriate for pt, Pt will maintain normal elimination patterns Interventions, Gastrointestinal Assess/monitor abdomen for distention, tenderness, Assess/monitor abdominal girth & bowel function, Assess/monitor bowel pattern, bowel sounds, flatus, Assess/monitor number of bowel movements, Assess/monitor color, quantity, quality, consistency of stoo, Assess/monitor pt for nausea, vomiting, Assess/monitor effects of re-hydration, Assess/monitor intake & output, Assess if pt tolerating diet, Collaborate/Consult with Bakery Assistant; review recommendations, DVT prophylaxis as ordered, Elevate HOB to facilitate lung expansion, prevent aspiration, Establish toileting schedule for patient, Taking PO: Encourage/monitor intake & swallowing ability Goals/Interventions, Gastrointestinal Yes Gastrointestinal, Problem Start 05/17/2022 23:51 Reviewed plan with, Gastrointestinal Patient Patient Progression, Gastrointestinal Pt progressing according to plan . Nursing Data Gastrointestinal Data. : Gastrointestinal Data. 05/18/2022 9:00 EST Gastrointestinal Symptoms Cramping Abdomen Soft, Tender RLQ Tenderness To palpation RUQ Tenderness To palpation Emesis Description None Bowel Sounds LUQ Present Bowel Sounds RUQ Present Bowel Sounds LLQ Present Bowel Sounds RLQ Present Last Bowel Movement 05/18/2022 Ostomy present Yes Gastrointestinal Comment denies N/V, reports cramping and mild tenderness to RUQ and RLQ, reports ostomy output is back to normal Peristomal Site, Ostomy Clean GI WNL except . Genitourinary Data. : Genitourinary Data. 05/18/2022 9:00 EST Genitourinary Comment patient able to void this am, self straight caths as needed WNL except . Evaluation Pt A+Ox4, pleasant and cooperative, follows commands, PÉREZ 5/5. denies LANDA, dizziness, chest pain/palpitations, SOB, N/V and generalized pain. remains afebrile. lung sounds clear, no cough, pulse ox maintained on RA. HR/BP maintained wnl. +radial pulses, +pedal pulses, no edema noted. Abdomen soft, tender to RUQ and RLQ, reoprts intermittent cramping, given bentyl with good effect, +bowel sounds x4 quads, LBM today via ostomy, pt reports ostomy output is back to baseline, much lesser amounts, managed without leaking in ostomy, restarted on loperimide. good po intake. no N/V and no changes to abdominal assessment after eating. reports voiding small adequate amounts of urine in bathroom, self straightcaths if needed. ambulating independently in room and hallway, gait steady. bed in lowest position, call abad within reach, safety maintained. pt states she feels ready for discharge home today. no services needed per PT, see note in [facility] for details. order for discharge placed. educated r/t medication regimen, f/u appointments, when and how to call for medical assistance, see discharge instruction documentation for details, pt states understanding of all instructions, no new scripts. iv angio removed intact. pt confirms all belongs with herat time of discharge. pt discharged via steady ambulation to [facility] with RN escort, her parents are picking her up and bringing her back to [facility], see SW note for details. .Heydi Ramirez RN: PERFORM, SIGN, VERIFY Event Display: Progress Note Hospital Authored Date: Patient: KATHARINA WELDON Age: 36 years Sex: Female : 1985 Associated Diagnoses: None Author: Heydi Ramirez RN Findings Problem Related to Alteration in Gastrointestinal : Alteration in Gastrointestinal Func/new 05/17/2022 23:00 EST Alteration in GI status Related to Diarrhea, Other: Possible partial SBO Goals & Outcomes, Gastrointestinal Establish a regular pattern of elimination for pt, Nutritional intake is adequate for metabolic needs, Pt will achieve normal/improved fluid balance, Pt will maintain adequate GI function appropriate for pt, Pt will maintain normal elimination patterns Interventions, Gastrointestinal Assess/monitor number of bowel movements, Assess/monitor color, quantity, quality, consistency of stoo, Assess/monitor pt for nausea, vomiting, Assess/monitor effects of re-hydration, Assess/monitor intake & output, Assess if pt tolerating diet BH Goals/Interventions, Gastrointestinal Yes Gastrointestinal, Problem Start 05/17/2022 23:51 Reviewed plan with, Gastrointestinal Patient Patient Progression, Gastrointestinal Plan Initiation . Nursing Data Vital Signs : VITAL SIGNS SECTION 05/18/2022 0:07 EST Early Warning Score 3.00 05/18/2022 0:07 EST Temperature 97.9 DegF Temperature Route Oral Pulse Rate 88 bpm Respiratory Rate 16 br/min Systolic Blood Pressure 109 mm Hg Diastolic Blood Pressure 68 mm Hg Blood pressure sites Arm, left Mean Arterial Pressure 82 mm Hg Pulse Pressure 41 mm Hg Oxygen Saturation 99 % Mode of Delivery (Oxygen) Room air 05/17/2022 23:53 EST Early Warning Score 3.00 05/17/2022 23:26 EST Respiratory Rate 16 br/min 05/17/2022 23:12 EST Early Warning Score 3.00 05/17/2022 22:36 EST Temperature 97.6 DegF Temperature Route Oral Pulse Rate 84 bpm Respiratory Rate 17 br/min Systolic Blood Pressure 125 mm Hg Diastolic Blood Pressure 77 mm Hg Blood pressure sites Arm, left Mean Arterial Pressure 93 mm Hg Pulse Pressure 48 mm Hg Oxygen Saturation 100 % Mode of Delivery (Oxygen) Room air 05/17/2022 22:34 EST Early Warning Score 3.00 05/17/2022 22:26 EST Respiratory Rate 16 br/min 05/17/2022 21:15 EST Early Warning Score 3.00 05/17/2022 21:13 EST Temperature 97.6 DegF Temperature Route Oral Pulse Rate 84 bpm Respiratory Rate 17 br/min Systolic Blood Pressure 125 mm Hg Diastolic Blood Pressure 77 mm Hg Blood pressure sites Arm, left Mean Arterial Pressure 93 mm Hg Pulse Pressure 48 mm Hg Oxygen Saturation 100 % Mode of Delivery (Oxygen) Room air . Narrative/Incidental PT arrived to floor around 2100. Admitted for possible partial SBO. Pt is AOx4. Denies chest pain/pressure. LSC throughout. On RA. +BS. Denies n/v. Reports gas pain and abdominal cramping. Ileostomy present to right side. Reports [facility] at [facility], she had multiple watery stools resulting in bag leaking and states that stools have since slowed down. No accidents or leaking overnight. Pt also reports she straight cath's herself 3-7 times per day. She is able to void on her ownat times. Steady gait. #20 gauge IV to right forearm, NS infusing as ordered. Call light within reach. Safety maintained. . Note Robyn Shafer RN: PERFORM Event Display: Discharge/Transfer Note Hospital Authored Date: Nursing Discharge Note Entered On: 05/18/2022 15:43 EST Performed On: 05/18/2022 14:55 EST by Robyn Shafer RN Nursing Discharge Note 2 Discharge Time : 05/18/2022 14:55 EST Discharge Level of Care at Discharge : Home/Longterm/Foster Care Patient Left Unit Via : Ambulatory Patient Accompanied Off Unit with : Responsible adult DC Instructions Provided & Signed by Pt : Yes Patient Understands D/C Instructions : Yes Patient Instructions Discharge Signed : Yes Did Pt have Specialty Bed or Wound Vac : No Robyn Shafer RN - 05/18/2022 15:42 Margaret Jeff MD: PERFORM Event Display: Discharge/Transfer Note Hospital Authored Date: [id number] Patient: ??KATHARINA WELDON ? Age:??36 Years?Sex:??Female?:??1985?? Patient Information Discharge Location: [facility] Primary Care Physician: Caroline Thapa MD Admit Date/Time: 05/17/22 19:50 Discharge Disposition Discharge Disposition: Home: No Services Discharge Diagnosis High output ileostomy (R19.8) ?? _ Discharge Medications Benztropine (benztropine 0.5 mg oral tablet)?0.5?Milligram?1?tablet?By Mouth?2 times a day Clonazepam?2?Milligram?By Mouth?Daily at bedtime Clonidine (cloNIDine 0.1 mg oral tablet)?0.1?Milligram?1?tablet?By Mouth?Daily at bedtime Dicyclomine (Bentyl 10 mg oral capsule)?1?capsule?By Mouth?4 times a day?for 10?Days Duloxetine (duloxetine 60 mg oral enteric coated capsule)?90?Milligram?By Mouth?Daily Durable Medical Equipment (Catheter Supplies)?See Instructions?Perform straight catheterization as needed up to 7 ??times daily Fluoxetine (FLUoxetine 20 mg oral capsule)?20?Milligram?1?capsule?By Mouth?Daily Folic Acid (folic acid 1 mg oral tablet)?1?Milligram?1?tablet?By Mouth?Daily Gabapentin (gabapentin 800 mg oral tablet)?1?tab(s)?800?Milligram?By Mouth?2 timesa day?200mg in am; 200mg at noon and 800mg at hs Loperamide (loperamide 2 mg oral capsule)?2?Milligram?1?capsule?By Mouth?Every 4 hours?as needed?for loose stool lurasidone (Latuda 80 mg oral tablet)?1?tab(s)?80?Milligram?By Mouth?Daily at bedtime?with food Miscellaneous Rx (Serum Magnesium levels in a week)?See Instructions?Lab test to be performed in a week Miscellaneous Rx (LFT in a week, results to PCP)?See Instructions?Lab test to be performed in a week Thiamine (Vitamin B1 100 mg oral tablet)?100?Milligram?1?tablet?By Mouth?Daily?for 10?Days Trazodone (traZODone 100 mg oral tablet)?100?Milligram?1?tablet?By Mouth?Daily at bedtime Zolpidem (Ambien 10 mg oral tablet)?1?tab(s)?10?Milligram?By Mouth?Daily at bedtime ? Vaccinations and Immunoprophylaxis Human Papillomavirus Vaccine: 0 Unknown (09/09/10 07:00:00) Human Papillomavirus Vaccine: 0 Unknown (06/25/09 07:00:00) Human Papillomavirus Vaccine: 0 Unknown (04/24/09 08:00:00) influenza virus vaccine, inactivated: 0.5 mL (05/18/22 12:05:00) influenza virus vaccine, inactivated: 0 Unknown (07/15/21 07:00:00) influenza virus vaccine, inactivated: 0.5 Unknown (05/09/19 07:00:00) influenza virus vaccine, inactivated: 0.5 Unknown (04/11/18 08:00:00) influenza virus vaccine, inactivated: 0.5 Unknown (03/20/17 08:00:00) influenza virus vaccine, inactivated: 0.5 Unknown (03/26/16 08:00:00) influenza virus vaccine, inactivated: 0.5 Unknown (04/05/15 08:00:00) influenza virus vaccine, inactivated: 0 Unknown (06/21/11 07:00:00) influenza virus vaccine, inactivated: 0 Unknown (09/09/10 07:00:00) Measles/Mumps/Rubella Virus Vaccine: 0 Unknown (12/23/94 08:00:00) Measles/Mumps/Rubella Virus Vaccine: 0 Unknown (08/28/87 07:00:00) SARS-CoV-2 (COVID-19) mRNA BNT-162b2 vac: 0.3 Unknown (01/11/21 08:00:00) SARS-CoV-2 (COVID-19) mRNA BNT-162b2 vac: 0.3 Unknown (12/13/20 08:00:00) tetanus/diphtheria/pertussis, acel(Tdap): 0 Unknown (09/09/10 07:00:00) tetanus-diphtheria toxoids (Td): 0.5 Unknown (07/15/21 07:00:00) Varicella Virus Vaccine: 0 Unknown (12/02/90 08:00:00) Hepatitis A Vaccine (oldterm): 1 mL (02/15/06 14:26:00) ?? Medications Started None Medications Discontinued None Doses Changed None Allergies Allergies ?(Active and Proposed Allergies Only) Topamax? (Severity: Unknown severity, Onset: Unknown) Thorazine? (Severity: Unknown severity, Onset: Unknown) ?Reactions: thorat closes Lamictal? (Severity: Unknown severity, Onset: Unknown) ?Reactions: rash sulfa drugs? (Severity: Unknown severity, Onset: Unknown) ?Reactions: hives Geodon? (Severity: Unknown severity, Onset: Unknown) ?Reactions: psychosis Buspar? (Severity: Unknown severity, Onset: Unknown) ?Reactions: rash ?Comments: rash ? 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??presented on 05/17??to the ED due to high output from ileostomy.Patient??also??presented?on 05/16to the ED and was found to have??possible??partial small bowel obstruction but she got better while in the ED and was discharged.??Patient reported that??for 1 day??thereafter??she had multiple high-frequency watery output from ileostomy, she reported that her abdominal pain is better than yesterday, she was referred to the ED as rehab facility felt that they could not manage high output ileostomy.Patient denied fever/chills, chest pain, palpitations, presyncope/syncope, nausea/vomiting, diarrhea/constipation, weight gain, lower extremity edema, or motor/sensory deficits; there have been no recent changes in the patient's diet, medication, oractivity.??In emergency room she was found stable. Laboratory work-up also within normal range.??HerCT abdomen pelvis from the 13 was reviewed showing marked gaseous distention of stomach and numerousloops of jejunum, with slow motility of ingested oral contrast in the stomach and these bowel loops.There is also distention of bowel loops beyond the column of contrast, with maximum diameter of small bowel loops about 3.6 cm. The appearance of the bowel and stomach are different than on earlier CTs, suggesting partial obstruction with transition point in the right lower quadrant proximal to the ost thalia.??Nonspecific mild mesenteric lymphadenopathy.??In the ED patient received IV fluids; patient was??admitted for further management of possible partial small bowel obstruction, high output ileostomy. During her hospitalization patient was treated for the following conditions: ?? Possible partial small bowel obstruction High output from ileostomy: Patient has been stable since admission, with her??ileostomy output back to normal, and tolerated well??diet with no nausea or vomiting.?Patient with normal??ileostomy output.?No further clinicalevidence of partial small bowel obstruction.?She was evaluated by??surgical team with no immediate concerns.??She is alert, oriented x4, ambulating??in her room with no difficulties.??She??is interesting in returning to [facility] where she was coming from. 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 ?Hyponatremia:??Was likely hypoosmolar hypovolemic, and resolved. ?? chronic medical conditions: Depression, obsessive compulsive disorder: Continue home meds ? Objective Measurements?? Height: 163 cm (05/18/22) Weight: 51.7 kg (05/17/22) Dry Weight: 51.7 kg (05/17/22) Body Mass Index: 19.46 kg/m2 (05/17/22) ? Vital Signs?? Temperature: 98.1 DegF (05/18/22 12:08:00) Temperature Route: Oral (05/18/22 12:08:00) Pulse Rate: 76 bpm (05/18/22 12:08:00) Respiratory Rate: 16 br/min (05/18/22 12:08:00) Systolic Blood Pressure: 101 mm Hg (05/18/22 12:08:00) Diastolic Blood Pressure: 62 mm Hg (05/18/22 12:08:00) Blood pressure sites: Arm, left (05/18/22 12:08:00) Mean Arterial Pressure: 75 mm Hg (05/18/22 12:08:00) Pulse Pressure: 39 mm Hg (05/18/22 12:08:00) Oxygen Saturation: 99 % (05/18/22 12:08:00) Liters per Minute: 0 L/min (05/18/22 12:08:00) Mode of Delivery (Oxygen): Room air (05/18/22 12:08:00) Early Warning Score: 0 (05/18/22 12:08:28) ? Mobility & Ambulation Level Mobility & Ambulation Level Activity Assistance: Independent (05/18/22) Activity Status ADL: Ambulating in room, Back to bed, Bathroom privileges, Up ad nella (05/18/22) Ambulation Activity: To doorway and back (05/18/22) Ambulation Patient Effort: Good (05/18/22) Ambulatory devices needed: None (05/18/22) Repositioning: Self (05/18/22) ?? . Physical Exam General:??Alert, in no acute cardiopulmonary distress. Mental Status:??Oriented to person, place and time. Normal affect. Head:??Normocephalic. Eyes:??Pupils are equal, round and reactive to light. Extraocular muscles intact. Ear, Nose and Throat:??Oropharynx clear, mucous membranes moist. Ears and nose without masses, lesions or deformities. Trachea midline. Neck:??Supple, Full range of motion. Respiratory:??Clear to auscultation and percussion. No wheezing, rales or rhonchi. Cardiovascular:??Heart sounds normal. No thrills. Regular rate and rhythm, no murmurs, rubs or gallops. ??Lower extremity without edema bilaterally. Gastrointestinal:??Abdomen soft, non-tender, non-distended.?? Colostomy in place.?? Normal bowel sounds. No pulsatile mass. No hepatosplenomegaly. Genitourinary:??No costovertebral angle tenderness. Neurologic:??Cranial nerves II-XII grossly intact. No focal neurological deficits. Moves all extremities spontaneously. Sensation intact bilaterally. Skin:??No rashes or lesions. No petechiae or purpura. No edema. Musculoskeletal:??No cyanosis or clubbing. No gross deformities. Normal range of motion. Consultants mike-dr Sahu Pending Results No Pending Results Follow-Up Appointments Added Follow Up ?Time Frame ?Comments Caroline Thapa MD?1 ?? Weeks Patient Instructions You were hospitalized for??high output from ileostomy??possible partial small bowel obstruction, both resolved.?? On discharge recommend you continue with your home medication, and follow-up with yourPCP in 1 week.?? For nausea, vomiting, abdominal pain, worsening ileostomy output, or any other concerns, please seek immediate medical care. Post Discharge Care Discharge ?05/18/22 12:33:00 EST Home Health Face to Face ^HomeHealthFTF Results Discharge Labs BLOOD COUNT & DIFF WBC 4.2 k/mm3 ()?? 05/18/2022 05:21 RBC 3.68 m/mm3 (Low)?? 05/18/2022 05:21 Hgb 11.0 Gm/dL (Low)?? 05/18/2022 05:21 Hct 33.0 % (Low)?? 05/18/2022 05:21 MCV 89.7 femtoliters ()?? 05/18/2022 05:21 MCH 29.9 pg ()?? 05/18/2022 05:21 MCHC 33.3 g/dL ()?? 05/18/2022 05:21 Platelet Count 228 k/mm3 ()?? 05/18/2022 05:21 RDW-SD 43.8 femtoliters ()?? 05/18/2022 05:21 MPV 10.4 femtoliters ()?? 05/18/2022 05:21 Nucleated RBC (Automated) 0.0 #/100 WBC'S ()?? 05/18/2022 05:21 Abs. NRBC 0.0 k/mm3 ()?? 05/18/2022 05:21 Abs. Neut 3.4 k/mm3 ()?? 05/17/2022 18:29 Abs. Lymph 1.8 k/mm3 ()?? 05/17/2022 18:29 Abs. [place] 0.7 k/mm3 ()?? 05/17/2022 18:29 Abs. Eo 0.1 k/mm3 ()?? 05/17/2022 18:29 Abs. Baso 0.0 k/mm3 ()?? 05/17/2022 18:29 Neut % 55.9 % ()?? 05/17/2022 18:29 Lymph % 29.8 % ()?? 05/17/2022 18:29 [place] % 11.6 % (High)?? 05/17/2022 18:29 Eos % 2.3 % ()?? 05/17/2022 18:29 Baso % 0.2 % ()?? 05/17/2022 18:29 Imm Gran 0.2 % ()?? 05/17/2022 18:29 Abs. Imm Gran 0.0 k/mm3 ()?? 05/17/2022 18:29 ?? CHEM GENERAL Sodium 138 mmol/L ()?? 05/18/2022 05:21 Potassium 4.6 mmol/L ()?? 05/18/2022 05:21 Chloride 106 mmol/L ()?? 05/18/2022 05:21 Bicarbonate Level 24 mmol/L ()?? 05/18/2022 05:21 Anion Gap 8 ()?? 05/18/2022 05:21 Glucose Level 91 mg/dL ()?? 05/17/2022 18:29 BUN 9 mg/dL ()?? 05/18/2022 05:21 Creatinine-Blood 0.6 mg/dL ()?? 05/18/2022 05:21 Estimated GFR Creatinine 117 ML/MIN/1.73 M2 ()?? 05/18/2022 05:21 Calcium 9.3 mg/dL ()?? 05/18/2022 05:21 Phosphorus 3.3 mg/dL ()?? 05/18/2022 05:21 Magnesium 1.5 mg/dL (Low)?? 05/18/2022 05:21 Protein, Total 8.1 Gm/dL ()?? 05/17/2022 18:29 Albumin 4.6 Gm/dL ()?? 05/17/2022 18:29 AG Ratio 1.3 ()?? 05/17/2022 18:29 Alkaline Phosphatase 60 units/L ()?? 05/17/2022 18:29 AST (SGOT) 19 units/L ()?? 05/17/2022 18:29 ALT (SGPT) 15 units/L ()?? 05/17/2022 18:29 Bilirubin, Total 0.5 mg/dL ()?? 05/17/2022 18:29 Lactate 1.7 mmol/L ()?? 05/17/2022 18:29 ?? HEME OTHER Hold Blue Top SPECIMEN DISCARDED AFTER 4 HOURS. ()?? 05/17/2022 18:29 ? MISC. CHEMISTRY Hold Gel Top SPECIMEN DISCARDED AFTER 1 WEEK ()?? 05/17/2022 18:29 ? UA/URINALYSIS Appear/Color, Urine LIGHT YELLOW ()?? 05/17/2022 18:10 Clarity CLEAR (N)?? 05/17/2022 18:[address] [place], Urine <1.005 ()?? 05/17/2022 18:10 pH, Urine 5.5 ()?? 05/17/2022 18:10 Albumin, Urine NEGATIVE (N)?? 05/17/2022 18:10 Glucose, Urine NEGATIVE (N)?? 05/17/2022 18:10 Ketones, Urine NEGATIVE (N)?? 05/17/2022 18:10 Bilirubin, Urine NEGATIVE (N)?? 05/17/2022 18:10 Hemoglobin, Urine NEGATIVE (N)?? 05/17/2022 18:10 Nitrite, Urine NEGATIVE (N)?? 05/17/2022 18:10 Leukocyte, Urine NEGATIVE (N)?? 05/17/2022 18:10 Urobilinogen NORMAL mg/dL (N)?? 05/17/2022 18:10 Hold Urine Culture Testing available 48 hours from time of collection. ()?? 05/17/2022 18:10 ? VIROLOGY COVID-19 PCR Specimen Source NASAL ()?? 05/17/2022 18:39 COVID-19 PCR Result NEGATIVE ()?? 05/17/2022 18:39 ? Blood Glucose Trend Glucose Level: 91 mg/dL (05/17/22 18:29:00) ? Microbiology ?? COVID-19 (2019 Novel Coronavirus) PCR?? Completed?? Source: Nasal Body Site: Nose Collected Dt/Tm: 05/17/2022 18:39 Last Updated Dt/Tm: 05/17/2022 19:30 ? Microbiology(s) ?COVID-19 PCR Result ?? 05/17/2022 18:39 ?2019-novel Coronavirus (2019-nCoV) not detected by real-time RT-PCR. ? 30 minutes spent on discharge Robyn Shafer RN: PERFORM Event Display: Patient Education/Instruction Authored Date: [id number] Inpatient Adult Discharge Instructions [address] [address] Name: KATHARINA WELDON : 1985 Visit: 05/17/2022 19:50:00 Current Date: 05/18/2022 14:24 Account: [id number] Inpatient Adult Discharge Instructions We would like to thank you for allowing us to assist you with your healthcare needs. The following includes patient education materials and information regarding your injury/illness. Our entire staff strives to provide an excellent experience for our patients and their families. PLEASE ENSURE YOU FOLLOW-UP PER THE INSTRUCTIONS BELOW! ?? YOUR OPINION IS IMPORTANT TO US! Please complete the survey you may receive by mail or email. Your feedback will be used to make improvements to the healthcare experiences of our patients and their families. Surveys are administered by [employer], [employer]. ?? If further treatment with your primary care physician or another doctor is recommended, it is important for you to keep the appointment. Call your primary care physician or return to the Emergency Department immediately if your condition worsens, fails to improve, or new symptoms develop. If you need to find a doctor, you can call [facility] for a referral at [phone] or toll free at [phone] ([phone]) or log in to [email or web address] ?? You can view and manage your care through the patient portal or by using a health care john of your choosing. [employer] is a website that allows you to securely view your medical information including your hospital discharge summary, office visit summaries, medications and follow-up visits. You can also request appointments, renew medications, and request access to your medical information using a health care john of your choosing, or just ask a question. You can enroll at [email or web address] or register during your next office visit. You have been discharged from [facility], Patient Care Unit: [id number]. If you have any questions regarding these instructions after you leave, please call us and we will be happy to assist you. [facility] Your Care Team Attending Physician Margaret Hayward MD Consulting Providers Teri Sahu MD Discharging Providers Margaret Hayward MD Reason for Admission Abdominal pain Your Diagnosis High output ileostomy Tests Performed Below is a partial list of the tests performed during your hospitalization. You may have had other tests and procedures not included in this list. Please discuss all test results with your provider. BUN Calcium Level CBC CBC w/ Differential Comprehensive Metabolic Panel COVID-19 (2019 Novel Coronavirus) PCR Creatinine HOLD BLUE TUBE HOLD GEL TUBE Lactate Level Lytes Magnesium Level Phosphorus Level Urinalysis w/hold for Urine Culture Primary Care Provider Caroline Thapa MD Advance Directive Health Care Proxy on File No Patient refuses to discuss Patient has a Designated Caregiver: No Discharge Vitals Temperature: 98.1 DegF Height: 163 cm Pulse Rate: 76 bpm Weight: 51.7 kg Respiratory Rate: 16 br/min Body Mass Index: 19.46 kg/m2 Systolic Blood Pressure: 101 mm Hg Body surface area: 1.53 Diastolic Blood Pressure: 62 mm Hg ?? Oxygen Saturation: 99 % ?? Studies Pending All tests and labs ordered during this hospital stay have been completed unless listed below. Pleasediscuss all pending results with your provider listed above in these instructions. ?? No incomplete studies found What to do next Instructions From Your Doctor You were hospitalized for??high output from ileostomy??possible partial small bowel obstruction, both resolved.?? On discharge recommend you continue with your home medication, and follow-up with yourPCP in 1 week.?? For nausea, vomiting, abdominal pain, worsening ileostomy output, or any other concerns, please seek immediate medical care. Discharge Orders You Need to Schedule the Following Appointments Follow Up with??Caroline Thapa MD When??In 1 week Why: Call to make a follow up appointment, not able to reach the spa receptionist. Where: [address] [place] [id number]- Discharge Medications SHIRAZ KATHARINA :1985 Visit Date:05/17/2022 Medications: Please continue your medications until treatment is completed or stopped by your provider. Medications not listed below should be discontinued. Discuss any questions related to medications with your provider. What How Much When Why Instructions Next Dose Unchanged Benztropine (benztropine 0.5 mg oral tablet) 1 tab(s) Oral Twice a day tonight 05/18 at 9pm Unchanged Clonazepam 2 Milligram Oral Daily at Bedtime tonight 05/18 at 9pm Unchanged Clonidine (cloNIDine 0.1 mg oral tablet) 1 tab(s) Oral Daily at Bedtime tonight 1115/ at 9pm Unchanged Dicyclomine (Bentyl 10 mg oral capsule) 1 capsule Oral 4 times a day Duration: 10 Days resume usual use Unchanged Duloxetine (duloxetine 60 mg oral enteric coated capsule) 90 Milligram Oral Daily tomorrow 05/19 at 9am Unchanged Durable Medical Equipment (Catheter Supplies) See instructions Urinary retention Perform straight catheterization as needed up to 7 ??times daily ?? resume usual use Unchanged Fluoxetine (FLUoxetine 20 mg oral capsule) 1 capsule Oral Daily resume usual use Unchanged Folic Acid (folic acid 1 mg oral tablet) 1 tab(s) Oral Daily tomorrow 05/19 at 9am Unchanged Gabapentin (gabapentin 800 mg oral tablet) 1 tab(s) Oral Twice a day 200mg in am; 200mg at noon and 800mg at hs ?? resume usual schedule Unchanged Loperamide (loperamide 2 mg oral capsule) 1 capsule Oral Every 4 hours as needed for for loose stool resume usual schedule Unchanged lurasidone (Latuda 80 mg oral tablet) 1 tab(s) Oral Daily at Bedtime with food ?? tonight 05/18 at 9pm Unchanged Miscellaneous Rx (LFT in a week, results to PCP) See instructions Lab test to be performed in a week ?? resume Unchanged Miscellaneous Rx (Serum Magnesium levels in a week) See instructions Lab test to be performed in a week ?? resume usual schedule Unchanged Thiamine (Vitamin B1 100 mg oral tablet) 1 tab(s) Oral Daily Duration: 10 Days tomorrow 05/19 at 9am Unchanged Trazodone (traZODone 100 mg oral tablet) 1 tab(s) Oral Daily at Bedtime tonight 05/18 at 9pm Unchanged Zolpidem (Ambien 10 mg oral tablet) 1 tab(s) Oral Daily at Bedtime tonight 1115/ at 9pm Test Results Below is a partial list of the most recent Laboratory test results done prior to this discharge. You may have had other tests and procedures not included in this list. Please discuss all test results with your provider. BUN (05/18/2022) ???BUN - 9 mg/dL Calcium Level (05/18/2022) ???Calcium - 9.3 mg/dL CBC (05/18/2022) ???WBC - 4.2 k/mm3???RBC - 3.68 m/mm3???Hgb - 11.0 Gm/dL???Hct - 33.0 %???MCV - 89.7 femtoliters???MCH - 29.9 pg???MCHC - 33.3 g/dL???Platelet Count - 228 k/mm3???RDW-SD - 43.8 femtoliters???MPV - 10.4femtoliters???Nucleated RBC (Automated) - 0.0 #/100 WBC'S???Abs. NRBC - 0.0 k/mm3 CBC w/ Differential (05/17/2022) ???WBC - 6.1 k/mm3???RBC - 4.37 m/mm3???Hgb - 13.1 Gm/dL???Hct - 39.1 %???MCV - 89.5 femtoliters???MCH - 30.0 pg???MCHC - 33.5 g/dL???Platelet Count - 296 k/mm3???RDW-SD - 44.7 femtoliters???MPV - 10.0femtoliters???Nucleated RBC (Automated) - 0.0 #/100 WBC'S???Abs. NRBC - 0.0 k/mm3???Abs. Neut - 3.4 k /mm3???Abs. Lymph - 1.8 k/mm3???Abs. [place] - 0.7 k/mm3???Abs. Eo - 0.1 k/mm3???Abs. Baso - 0.0 k/mm3???Neut % - 55.9 %???Lymph % - 29.8 %???[place] % - 11.6 %???Eos % - 2.3 %???Baso % - 0.2 %???Imm Gran - 0.2 %???Abs. Imm Gran - 0.0 k/mm3 Comprehensive Metabolic Panel (05/17/2022) ???Sodium - 131 mmol/L???Potassium - 4.8 mmol/L???Chloride - 98 mmol/L???Bicarbonate Level - 23 mmol/L???Anion Gap - 10???Glucose Level - 91 mg/dL???BUN - 14 mg/dL???Creatinine-Blood - 0.7 mg/dL???Estimated GFR Creatinine - 111 ML/MIN/1.73 M2???Calcium - 10.0 mg/dL???Protein, Total - 8.1 Gm/dL???Albumin - 4.6 Gm/dL???AG Ratio - 1.3???Alkaline Phosphatase - 60 units/L???AST (SGOT) - 19 units/L???ALT (SGPT) - 15 units/L???Bilirubin, Total - 0.5 mg/dL COVID-19 (2019 Novel Coronavirus) PCR (05/17/2022) ???COVID-19 PCR Specimen Source - NASAL???COVID-19 PCR Result - NEGATIVE Creatinine (05/18/2022) ???Creatinine-Blood - 0.6 mg/dL???Estimated GFR Creatinine - 117 ML/MIN/1.73 M2 HOLD BLUE TUBE (05/17/2022) ???Hold Blue Top - SPECIMEN DISCARDED AFTER 4 HOURS. HOLD GEL TUBE (05/17/2022) ???Hold Gel Top - SPECIMEN DISCARDED AFTER 1 WEEK Lactate Level (05/17/2022) ???Lactate - 1.7 mmol/L Lytes (05/18/2022) ???Sodium - 138 mmol/L???Potassium - 4.6 mmol/L???Chloride - 106 mmol/L???Bicarbonate Level - 24 mmol/L???Anion Gap - 8 Magnesium Level (05/18/2022) ???Magnesium - 1.5 mg/dL Phosphorus Level (05/18/2022) ???Phosphorus - 3.3 mg/dL Urinalysis w/hold for Urine Culture (05/17/2022) ? ?Appear/Color, Urine - LIGHT YELLOW? ?Clarity - CLEAR? ?Specific [place], Urine - <1.005? ?pH, Urine - 5.5???Albumin, Urine - NEGATIVE???Glucose, Urine - NEGATIVE???Ketones, Urine - NEGATIVE???Bilirubin, Urine - NEGATIVE???Hemoglobin, Urine - NEGATIVE???Nitrite, Urine - NEGATIVE???Leukocyte, Urine - NEGATIVE???Urobilinogen - NORMAL???Hold Urine Culture - Testing available 48 hours from time of collection. Immunizations This Visit Given Vaccine Dateinfluenza virus vaccine, inactivated 05/18/2022 Allergies (NKA means No Known Allergies) Buspar??(rash) Geodon??(psychosis) Lamictal??(rash) Thorazine??(thorat closes) Topamax sulfa drugs??(hives) Problems Active Problems??(12) Anxiety?? Colonic inertia s/p total colectomy and ileostomy placement 10/2018?? Depression?? Eating disorder?? Fibromyalgia?? Herniated lumbar intervertebral disc?? Hypotension?? Metabolic alkalosis?? OCD (obsessive compulsive disorder)?? Opiate use?? Syncope and collapse?? Transaminitis?? Education Materials Below is the list of Educational Leaflet Providered with your Discharge Instructions. Small Bowel Obstruction?? Valuables and Belongings I fully understand and agree that [facility] accepts no responsibility for all my personal property including clothing, toilet articles, radios, jewelry, dentures, hearing aids, rings, money, or any other property that is in my possession or is brought to me after admission. I understand certain valuables may be placed in a hospital safe for a short period of time. I understand that the hospital is not liable for loss or damage due to accident, fire, or other natural occurrence while said property is in the safe. I accept full responsibility for any personal property that I keep with me, and will not hold the hospital responsible in case of loss or disappearance. I acknowledge that i have been encouraged to send valuables and belongings home. ? Other Discharge Information ? Pulmonary Rehab Status?? Pulmonary Rehab Discharge Status?? Respiratory Rate: 16 br/min ? Common Emergency Awareness Tips IS IT A STROKE? Act FAST and Check for these signs: FACE Does the face look uneven? ARM Does one arm drift down? SPEECH Does their speech sound strange? TIME Call at any sign of stroke ?? Heart Attack Signs Chest discomfort: Most heart attacks involve discomfort in the center of the chest and lasts more than a few minutes, or goes away and comes back. It can feel like uncomfortable pressure, squeezing, fullness or pain. Discomfort in upper body: Symptoms can include pain or discomfort in one or both arms, back, neck, jaw or stomach. Shortness of breath: With or without discomfort. Other signs: Breaking out in a cold sweat, nausea, or lightheaded. Remember, MINUTES DO MATTER. If you experience any of these heart attack warning signs, call to get immediate medical attention! ?? Smoking can increase your chances of developing chronic health problems and can cause harmful effects to other family members in your house. If you smoke, you are strongly encouraged to quit. Please call [facility] at [phone] or 4-319-370[facility] (2203) or log in to [email or web address] for referrals to smoking cessation programs. ?? The National Suicide Prevention Hotline is available 24/01 if you or someone you know needs to find areason to keep living. By calling 9-447-251-Share Your Brain (8473) you'll be connected to a skilled, trained counselor at a crisis center in your area. INPATIENT DISCHARGE INSTRUCTIONS SIGNATURE PAGE KATHARINA WELDON Location:[facility] Registration Date and Time:05/17/2022 19:50 EST Primary Care Physician: Elier RICHARDSON , Caroline Connolly, I KATHARINA WELDON, have received the above patient education materials/instructions and have verbalized understanding. If ambulance or transport services are being used I further acknowledge being givena choice of service. ?? If you need to contact me, please call me at this number: . Patient/Supervisor Shipping Room Name: Patient/Supervisor Shipping Room Signature: Relationship to Patient: Witness Name/Signature: Date: Kendra Gregory: PERFORM, SIGN, VERIFY Event Display: Patient Education Handout Authored Date: [id number] Robyn Shafer RN: PERFORM Event Display: Patient Education Leaflets Authored Date: [id number] Small Bowel Obstruction ?? 57716 Small Bowel Obstruction A??small bowel obstruction??occurs when part or all of the small intestine (bowel) is blocked. As aresult, digestive contents can???t move through the bowel and out of the body correctly. Treatment is needed right away to remove the blockage. This can ease painful symptoms. It can also prevent serious problems, such as tissue or bursting (rupture) of the small bowel. Without treatment, a small bowel obstruction can be fatal. Small bowel obstruction can lead to tissue damage and even tissue . Causes of small bowel obstruction A small bowel obstruction can be caused by: ??? Scar tissue (adhesions). ??These may form after belly (abdominal) surgery or an infection. ??? Hernia. A hernia is when an organ pushes through a weak spot or tear in the abdomen wall. Part of the small bowel can push out and be seen as a bulge under the belly.??Hernias can also occur internally. ??? Certain health problems. ??These include when part of the bowel slides inside another part (intussusception). Other causes include irritable bowel disease such as Crohn???s disease, and inflammation and sores in the intestine (ulcerative colitis). ??? Abnormal tissue growths (tumors). ??These can form on the inside or outside of the small bowel. They are usually due to cancer. ?? Symptoms of small bowel obstruction Common symptoms include: ??? Belly cramping and pain ??? Belly swelling and bloating ??? Upset stomach (nausea) and vomiting ??? Can't??pass gas ??? Can't pass stool (constipation) ??? Diarrhea ?? Diagnosing small bowel obstruction Your provider will ask about your symptoms and health history. You???ll also have a physical exam. Tests may also be done to confirm the problem. These can include: ??? Imaging tests.??These provide pictures of the small bowel. Common tests include X-rays and a CT scan. ??? Blood tests.??These check for infection and other problems, such as excess fluid loss (dehydration). ??? Upper GI (gastrointestinal) series with a small bowel follow-through. ??This test takes X-rays of the upper digestive tractfrom the mouth through the small bowel. An X- ray dye (contrast fluid) is used. The dye coats the inside of your upper digestive tract so it will show up clearly on X-rays. ?? Treating small bowel obstruction Treatment takes place in a hospital. As part of your care, the following may be done: ??? No food or drink is given by mouth. This allows your bowels to rest. ??? An IV (intravenous) line is placed joshua vein in your arm or hand. The IV line is used to give fluids and medicines. These may be needed toease pain, nausea, and other symptoms. They may also be needed to treat or prevent infections. ??? Asoft, thin, flexible tube (nasogastric tube) is inserted through your nose and into your stomach. The tube is used to remove extra gas and fluid in your stomach so that the bowels can rest. This helps ease symptoms such as pain and swelling. ??? In some cases, surgery is done. This may be needed if the small bowel is almost or totally blocked, if symptoms continue even after treatment, or if there lakia hole in the bowel (bowel perforation). During surgery, the blockage is removed. Parts of the bowelmay also be removed if there is tissue . Other repair may be done as well, depending on what caused the blockage. Your healthcare provider will give you more information about surgery, if needed. ??? You???ll be watched closely in the hospital until your symptoms improve. Your provider will tell you when you can go home. ?? Long-term concerns?? After treatment, most people recover with no lasting effects. If a long part of the bowel is removed, there is a greater chance for lifelong digestive problems. Bowel movements may become irregular. Work with your provider to learn the best ways to manage any symptoms you may have, and to protect your health. ?? When to call your healthcare provider Call your provider right away or seek immediate medical care if you have any of the following: ??? Severe pain (call 911) ??? Belly swelling or cramping that won???t go away ??? Can???t pass stool or gas ??? Nausea or vomiting (especially if the vomit looks or smells like stool) ?? Last Reviewed Date: 2021 ?? 7871-4500 [employer]. All rights reserved. This information is not intended as a substitute for professional medical care. Always follow your healthcare professional's instructions. ?? Patient Care team information Care Team PersonnelName: Mayelin Hyde RN Position: [facility] PCO RN Member Role: Primary Care Nurse Name: Linda Coats RN Position: [facility] RN Member Role: Primary Care Nurse Name: Chance Velásquez RN Position: [facility] RN Member Role: Primary Care Nurse Name: Caroline Thapa MD Position: [facility] Outreach Member Role: PCP Address: Address: [address] [place] [address] Name: Karyna Morin RN Position: [facility] SWATHI Nurse Member Role: Primary Care Nurse Name: Tavo SARABIA Attending Position: [facility] ED Medicine Name: Tiara Brady RN Position: [facility] ED RN W/OE and Tasks Member Role: Patient Care Provider Care Team Related PersonsName: YUNIOR RAPHAEL Address: [address] [address] Name: YUNIOR HALL Address: [address] [address] Name: BLADIMIR WELDON Address: [address] [address] Name: ANNITA PALOMARES Address: home [address] [place] [address] Name: ANNITA YATES Address: [address] [place] [address]
--- OUTSIDE RECORDS SUMMARY | 2022-06-21 15:52 | XMS_ITS | Continuity of Care Document ---
:1985 Author Organization [facility] Address [address] [place] [id number]- Care Team Providers Name Role Phone Elier RICHARDSON, Caroline Connolly Primary Care Physician Encounter [facility] [place] Date(s): 05/12/20 - 06/11/[address] [address] Attending Physician: Jolynn Lobo Admitting Physician: AdmJolynn cruz Referring Physician: Admtr, Ar8 Allergies, Adverse Reactions, Alerts Substance Reaction Severity Status Lamictal rash Active Geodon psychosis Active sulfa drugs hives Active Thorazine thorat closes Active Buspar1 rash [...] Start Date: 02/10/18 Status: Orderedbrava bararier seals [id number] brava bararier seals [id number], See Instructions, # 20 units, Refills 11, Tot. Refills 11, Maintenance,use as needed for ostomy care. Dx. ileostomy, 03/19/19 11:54:35 EDT, Compound Start Date: 03/19/19 Status: OrderedClonazepam = 2 mg, By Mouth, Daily at bedtime, 0 Refills, Maintenance, 02/10/18 8:43:20 EDT Start Date: 02/10/18 Status: Orderedcoloplast 23790 coloplast 69052, See Instructions, # 20 each, Refills 11, Tot. Refills 11, Maintenance, use as needed for ostomy care Dx. ileostomy, 03/19/19 11:53:12 EDT, Compound Start Date: 03/19/19 Status: Orderedcoloplast 54135 coloplast 08274, See Instructions, # 20 each, Refills 11, [...] 06/04/20 16:00:00 EST, Route to Pharmacy Electronically, [facility]... Start Date: 06/04/20 Stop Date: [...] 04/30/19 16:26:56 EDT Start Date: 04/30/19 Status: OrderedTaars Grajeda, See Instructions, # 1 each, Refills [...]
--- OUTSIDE RECORDS SUMMARY | 2022-06-21 15:52 | XMS_ITS | Continuity of Care Document ---
:1985 Author Organization [address] [place] [id number]- Care Team Providers Name Role Phone Caroline Thapa MD Primary Care Physician Encounter [facility] [place] Date(s): 12/04/19 - 12/11/[address] [place] [id number]- [facility] Attending Physician: Marla GALLEGOS, Juani Solorio Referring [...] 05/08/20 14:54:00 EST, 12/10/19 14:54:00 EDT, Tablet, [facility] #[id number], 165, cm, 12/04/19 10:31:00 EDT, Height, 55.1, kg, 11/17/19 3:58:00 EDT, Dry Weight Start Date: 12/10/19 Stop Date: 05/08/20 Status: Orderedbethanechol 5 mg oral tablet 1 tablet = 5 mg, By Mouth, 3 times a day, for 30 days, # 90 tablet, 3 Refills, Acute 02/27/20 16:14:00 EDT, 10/30/19 16:14:00 EDT, Tablet, [facility] #[id number], 130, cm, 09/07/19 16:17:00 EST, Height, 50.6, kg, 08/10/19 17:18:00 EST, Dry Weight Start Date: 10/30/19 Stop Date: 02/27/20 Status: Orderedbrava bararier seals [id number] brava bararier seals [id number], See Instructions, # 20 units, Refills 11, Tot. Refills 11, Maintenance,use as needed for ostomy care. Dx. ileostomy, 03/19/19 11:54:35 EDT, Compound Start Date: 03/19/19 Status: OrderedClonazepam = 2 mg, By Mouth, Daily at bedtime, 0 Refills, Maintenance, 02/10/18 8:43:20 EDT Start Date: 02/10/18 Status: Orderedcoloplast 87848 coloplast 85082, See Instructions, # 20 each, Refills 11, Tot. Refills 11, Maintenance, use as needed for ostomy care Dx. ileostomy, 03/19/19 11:53:12 EDT, Compound Start Date: 03/19/19 Status: Orderedcoloplast 55770 coloplast 57531, See Instructions, # 20 each, Refills 11, [...] EDT Start Date: 12/07/19 Status: OrderedMorphine Sulfate ADD-Assumption 0 Refills, Maintenance, 12/07/19 12:00:00 EDT, Partial [...] recent to oldest [Reference Range]: 1 Height 165 cm (12/04/19 10:31 AM) Weight 55.9 kg (12/04/19 10:31 AM) Body Mass Index [18.5-24.99] 20.53 (12/04/19 10:31 AM) Temperature [96.8-100.4 DegF] 98.4 DegF (12/04/19 10:31 AM) Temperature Route Temporal (12/04/19 10:31 AM) Weight Obtained Via Standing scale (12/04/19 10:31 AM) Social History Social History Type Response Tobacco Use: 4 or less cigarettes(le ss than 1/4 pack)/day in last 30 days. Sex
--- OUTSIDE RECORDS SUMMARY | 2022-06-21 15:52 | XMS_ITS | Continuity of Care Document ---
:1985 Author Organization [facility] Address [address] [place] [id number]- Care Team Providers Name Role Phone Caroline Thapa MD Primary Care Physician Encounter [facility] [place] Date(s): 11/29/19 - 12/29/19 [facility] [address] [place] [id number]- [facility] Attending Physician: Jolynn Lobo Admitting Physician: AdmtrJolynn [...] 05/08/20 14:54:00 EST, 12/10/19 14:54:00 EDT, Tablet, [facility] #[id number], 165, cm, 12/04/19 10:31:00 EDT, Height, 55.1, kg, 11/17/19 3:58:00 EDT, Dry Weight Start Date: 12/10/19 Stop Date: 05/08/20 Status: Orderedbethanechol 5 mg oral tablet 1 tablet = 5 mg, By Mouth, 3 times a day, for 30 days, # 90 tablet, 3 Refills, Acute 02/27/20 16:14:00 EDT, 10/30/19 16:14:00 EDT, Tablet, [facility] #[id number], 130, cm, 09/07/19 16:17:00 EST, Height, 50.6, kg, 08/10/19 17:18:00 EST, Dry Weight Start Date: 10/30/19 Stop Date: 02/27/20 Status: Orderedbrava bararier seals [id number] brava bararier seals [id number], See Instructions, # 20 units, Refills 11, Tot. Refills 11, Maintenance,use as needed for ostomy care. Dx. ileostomy, 03/19/19 11:54:35 EDT, Compound Start Date: 03/19/19 Status: OrderedClonazepam = 2 mg, By Mouth, Daily at bedtime, 0 Refills, Maintenance, 02/10/18 8:43:20 EDT Start Date: 02/10/18 Status: Orderedcoloplast 39572 coloplast 91840, See Instructions, # 20 each, Refills 11, Tot. Refills 11, Maintenance, use as needed for ostomy care Dx. ileostomy, 03/19/19 11:53:12 EDT, Compound Start Date: 03/19/19 Status: Orderedcoloplast 23518 coloplast 64096, See Instructions, # 20 each, Refills 11, [...] 12/24/19 11:37:00 EDT, Route to Pharmacy Electronically, [facility] #[id number], 165.1, cm, 12/18/19 9:25:00 EDT, Height, 55.1, kg, 0... Start Date: 12/24/19 Status: OrderedIndoor/Outdoor Allergy Relief = 10 mg, By Mouth, Daily, 0 Refills, Maintenance, 12/07/19 12:00:00 EDT Start Date: 12/07/19 Status: OrderedMorphine Sulfate ADD-[place] 0 Refills, Maintenance, 12/07/19 12:00:00 EDT, Partial [...]
--- OUTSIDE RECORDS SUMMARY | 2022-06-21 15:52 | XMS_ITS | Continuity of Care Document ---
:1985 Author Organization [facility] Address [address] [place] [address] [place] [address]- Care Team Providers Name Role Phone Caroline Thapa MD Primary Care Physician Encounter [facility] [place] Date(s): 06/19/20 - 10/17/[address] [place] [id number] Attending Physician: Marla GALLEGOS, Juani Solorio Referring [...] tablet, 0 Refills, Acute, 07/31/20 8:52:00 EST, [facility] #[id number], 163, cm, 07/08/20 13:37:00 EST, Height, 50, kg, 05/08/20 13:34:00 EST, Dry Weight Start Date: 07/31/20 Status: Orderedbethanechol 25 mg oral tablet 25 mg, 1, tablet, By Mouth, 3 times a day, for 30 days, # 90 tablet, Refills 4, Tot. Refills 4, Acute 02/13/21 14:38:00 EDT, 09/16/20 14:38:00 EDT, Route to Pharmacy Electronically, [facility] #[id number], Partial fill upon patient request if the... Start Date: 09/16/20 Stop Date: 02/13/21 Status: Orderedbrava bararier seals [id number] brava bararier seals [id number], See Instructions, # 20 units, Refills 11, Tot. Refills 11, Maintenance,use as needed for ostomy care. Dx. ileostomy, 03/19/19 11:54:35 EDT, Compound Start Date: 03/19/19 Status: OrderedClonazepam = 2 mg, By Mouth, Daily at bedtime, 0 Refills, Maintenance, 02/10/18 8:43:20 EDT Start Date: 02/10/18 Status: Orderedcoloplast 80849 coloplast 48494, See Instructions, # 20 each, Refills 11, Tot. Refills 11, Maintenance, use as needed for ostomy care Dx. ileostomy, 03/19/19 11:53:12 EDT, Compound Start Date: 03/19/19 Status: Orderedcoloplast 06810 coloplast 66308, See Instructions, # 20 each, Refills 11, [...]
--- OUTSIDE RECORDS SUMMARY | 2022-06-21 15:52 | XMS_ITS | Continuity of Care Document ---
:1985 Author Organization [facility] nter Address [address] [place] [id number] Care Team Providers Name Role Phone Elier RICHARDSON, Caroline Connolly Primary Care Physician Encounter [facility] Date(s): 06/01/22 - 06/04/[address] [address]- Discharge Disposition: A-D/C Home Attending Physician: Francesco Navarrete MD, Prasanth Admitting Physician: Estrella RICHARDSON, Twan Lowe Referring Physician: Not on Staff, Referring MD Allergies, Adverse Reactions, Alerts Substance Reaction Severity Status Topamax Active Buspar1 rash Active Geodon psychosis Active sulfa [...] II opioid drug. Start Date: 06/01/22 Status: OrderedoxyCODONE 5 mg oral tablet 2.5 mg, Tablet, By Mouth, Every 6 hours, PRN for Pain , Moderate, Routine, 06/04/22 7:24:00 EST Start Date: 06/04/22 Stop Date: 06/05/22 Status: DiscontinuedoxyCODONE 5 mg oral tablet 2.5 mg, 0.5, tablet, By Mouth, 3 times a day, PRN, for 2 days, # 4 tablet, Refills 0, Tot. Refills 0, Acute 06/06/22 10:51:00 EST, Pain , Moderate, 06/04/22 10:51:00 EST, Route to Pharmacy Electronically, [facility]-, Partial f... Start Date: 06/04/22 Stop Date: 06/06/22 Status: OrderedReglan 10 mg oral tablet 1 tablet = 10 mg, By Mouth, 3 times a day before meals and bedtime, for 10 days, # 40 tablet, 0 Refills, Acute 06/14/22 10:51:00 EST, 06/04/22 10:51:00 EST, Tablet, [facility]-,Partial fill upon patient request if the prescrip... [...] Mouth, Daily at bedtime, Refills 0, Maintenance, 10/28/19 16:26:56 EDT Start Date: 04/30/19 Status: OrderedTylenol 325 mg oral tablet 650 mg, Tablet, By Mouth, Every 6 hours, PRN for Pain , Mild, Routine, 06/03/22 15:51:00 EST Start Date: 06/03/22 Stop Date: 06/05/22 Status: DiscontinuedVitamin B1 100 mg oral tablet 100 mg, [...] intervertebral disc Syncope and collapse Confirmed Active Results Radiology Reports Exam Date Time Procedure Performing Provider Status 06/02/22 7:13 PM Small Bowel Water Soluble Andrés Campoverde (Verified) Notes:(Small Bowel Water Soluble) Reason For Exam: Pain;Abdomen XRAY to be taken at 7:10PMRESULT: Small Bowel Water Soluble 2 views of abdomen obtained. There does appear to be contrast within small bowel loops in the mid todistal small bowel. No definite contrast identified within the colon. Dense contrast seen within the stomach. No free air. IMPRESSION: Contrast seen throughout likely most of small bowel. No definite contrast seen within the colon. Consider continued follow-up. WSN: [id number] Ordering Physician: Kendra Wu Dictated By: Prem Cardenas MD Dictated Date/Time: 06/02/22 7:17 pm Reviewed By: Prem Cardenas MD Signed By: Prem Cardenas MD Signed Date/Time: 06/02/22 7:17 pm Transcribed By: TONE Transcribed Date/Time: 06/02/22 7:15 pm Exam Date Time Procedure Performing Provider Status 06/02/22 10:33 AM Chest Portable Bebo Clifton; Auth (Verifie d) Notes:(Chest Portable) Reason For Exam: Line Placement;Line PlacementRESULT: Chest Portable Chest Portable INDICATION: Line placement. COMPARISON: Yesterday. FINDINGS: Enteric tube with tip at the level of the diaphragm/GE junction. Side port at the mid to distal esophagus. Interval retraction since the previous exam Diffuse gaseous distention of the visualized loops of bowel. No acute cardiopulmonary process. IMPRESSION: Enteric tube with tip at the level of the diaphragm/GE junction. Consider advancement for optimal placement. A critical result message ([place]) has been communicated via the [employer] system on 06/02/2022 10:44 AM, Message ID [id number]. I have personally reviewed the images and I agree with this report. WSN: [id number] Ordering Physician: Prasanth Celaya Dictated By: Isaac Carrasquillo MD Dictated Date/Time: 06/02/22 10:44 a Reviewed By: Maximo Argueta MD Signed By: Maximo Argueta MD Signed Date/Time: 06/02/22 10:49 am Transcribed By: TONE Transcribed Date/Time: 06/02/22 10:39 am Exam Date Time Procedure Performing Provider Status 06/01/22 5:32 AM Chest Portable Uma Davidson (Verified) Notes:(Chest Portable) Reason For Exam: Tube PlacementRESULT: Chest Portable Chest Portable performed AP sitting at 5:30 AM INDICATION: Tube placement. COMPARISON: 06/01/2022 at 4:56 AM. FINDINGS: LINES AND TUBES: The previously seen enteric tube has been advanced since prior. The tip is in the stomach and the side-port is at the level of the diaphragm. LUNGS AND PLEURA: Clear lungs. Normal pulmonary vascularity. No pleural effusion. No pneumothorax. HEART, MEDIASTINUM AND EMILIE: Heart is normal in size. Normal mediastinal and hilar contour. BONES AND SOFT TISSUES: Diffuse gaseous distention of the visualized loops of bowel. IMPRESSION: Enteric tube has been advanced since prior with the tip now in the stomach. However, the side port is at the level of the diaphragm. Consider slight advancement for optimal placement. Diffuse gaseous distention of the visualized loops of bowel. I have personally reviewed the images and I agree with this report. WSN: [id number] Ordering Physician: Twan De La Rosa Dictated By: Isaac Carrasquillo MD Dictated Date/Time: 06/01/22 9:34 am Reviewed By: Juno Morrow MD, V Signed By: Juno Morrow MD, V Signed Date/Time: 06/01/22 9:39 am Transcribed By: TONE Transcribed Date/Time: 06/01/22 9:11 am Exam Date Time Procedure Performing Provider Status 06/01/22 4:54 AM Chest Portable Short , Michelle; Auth (Verified) Notes:(Chest Portable) Reason For Exam: Tube PlacementRESULT: Chest Portable Chest Portable REASON: Tube Placement; Clinical Question(s): Tube Placement / Tube Placement COMPARISON: Earlier today FINDINGS: LINES AND TUBES: Enteric tube has been retracted, with the tip now projecting in the esophagus just below the eliazar and the side port at the level of the clavicular heads. LUNGS AND PLEURA: Clear lungs. Normal pulmonary vascularity. No pleural effusion. No pneumothorax. HEART, MEDIASTINUM AND EMILIE: Heart is normal in size. Normal mediastinal and hilar contour. BONES AND SOFT TISSUES: Multiple dilated gas-filled loops of small bowel again seen. IMPRESSION: Enteric tube in the esophagus, recommend repositioning. WSN: [id number] Ordering Physician: Twna De La Rosa Dictated By: Liborio Hardy MD Dictated Date/Time: 06/01/22 9:12 am Reviewed By: Liborio Hardy MD Signed By: Liborio Hardy MD Signed Date/Time: 06/01/22 9:12 am Transcribed By: TONE Transcribed Date/Time: 06/01/22 9:08 am Exam Date Time Procedure Performing Provider Status 06/01/22 1:51 AM Chest Portable Short , Michelle; Auth (Verified) Notes:(Chest Portable) Reason For Exam: Line PlacementRESULT: Chest Portable Chest Portable Reason: Line Placement; Clinical Question(s): Line Placement COMPARISON: 01/12/2021 FINDINGS: 2. The repeat images were obtained. LINES AND TUBES: Enterogastric tube tip and side-port project beneath the left hemidiaphragm in the stomach on the first image. On the second image, the tube has been retracted slightly with the side-port at the GE junction. LUNGS AND PLEURA: Low lung volumes due to gaseous distention and elevated diaphragm. The lungs are otherwise clear . No pleural effusion. No pneumothorax. HEART, MEDIASTINUM AND EMILIE: Heart is normal in size. Normal mediastinal and hilar contour. BONES AND SOFT TISSUES: No osseous abnormality. Gas-distended upper abdominal bowel loops. IMPRESSION: On the first image of the exam, the enterogastric tube is well positioned however on the second final image, the tube has been retracted slightly with the side-port at the GE junction. Recommend advancing the tube another 5 cm. Clear lungs. 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 Patient unable to tolerate PO contrast. TECHNIQUE: Spiral CT through the abdomen and pelvis with IV contrast formatted in 3 planes. 75 cc ofOmnipaque 300 was administered intravenously. This study was performed without oral contrast. Weight-based protocol using automatic tube modulation was used to optimize exposure parameters. CTDIvol Body: 8.85 mGy, DLP Body: 451 mGy*cm. COMPARISON: CT 05/16/2022 FINDINGS: Home [employer] Disclosure Act Specialist View Findings, Lines and Tubes: None. Visualized Chest: Lung bases are clear. No pleural effusion. The heart is normal in size. No pericardial effusion. Fluid-filled distal esophagus. Mild pectus excavatum deformity (Pierce index 3.0). Diaphragm: Normal. Liver: Normal. Gallbladder: No CT evidence of gallbladder pathology. Bile ducts: No biliary ductal dilation. Spleen: Normal. Pancreas: Normal. Adrenal glands: Normal. Kidneys and ureters: No hydronephrosis, stones, or suspicious masses. Bladder: Bladder is moderately distended but otherwise normal. Reproductive organs: Unremarkable. Stomach, small bowel, and large bowel: The stomach is over distended and filled with ingested contents. The proximal jejunal loops are normal in caliber and are located in the right hemiabdomen. The remaining of the small bowel is diffusely distended, measuring up to 6.2 cm distally (coronal 51). There is a transition point just adjacent to the ileostomy (axial 91). Fecalized contents in the distal small bowel. No bowel wall thickening or pneumatosis. Status post total colectomy. Katt's pouch isunremarkable. Appendix: Surgically absent. Peritoneum and retroperitoneum: Small amount of free fluid in the cul-de-sac. No pneumoperitoneum. No omental or mesenteric lesions. Lymph nodes: Prominent but nonenlarged mesenteric lymph nodes, likely reactive. Mild mesenteric edema in the left upper quadrant (axial image 87). Blood vessels: Normal. No aneurysm. No evidence of venous thrombosis. Abdominal and pelvic wall: Unremarkable. Bones: No acute abnormality. IMPRESSION: Small bowel obstruction with a transition point just upstream to the ileostomy. No evidence of bowelischemia or perforation. Significant distention of the stomach with enteric contents, slightly more than the prior exam, though no definite evidence of gastric outlet obstruction. Findings in agreement with preliminary report provided by [facility] . I have personally reviewed the images and I agree with this report. WSN: [id number] Ordering Physician: Meng Saez Dictated By: Pratik Garcia MD Dictated Date/Time: 06/01/22 8:57 am Reviewed By: Neel Mckinnon MD Signed By: Neel Mckinnon MD Signed Date/Time: 06/01/22 9:02 am Transcribed By: TONE Transcribed Date/Time: 06/01/22 8:41 am Vital Signs Most recent to oldest 1 2 3 [Reference Range]: Height 163 cm 163 cm 163 cm (06/04/22 6:10 PM) (06/04/22 10:58 AM) (06/04/22 8: 10 AM) Weight 53.2 kg 53.2 kg 52.2 kg (06/01/22 9:28 AM) (06/01/22 4:13 AM) (05/31/22 10:09 PM) Oxygen Saturation [94-100 98 % 98 % 97 % %] (06/04/22 6:10 PM) (06/04/22 10:58 AM) (06/04/22 8: 10 AM) Pulse Rate [55-90 bpm] 65 bpm 60 bpm 65 bpm (06/04/22 6:10 PM) (06/04/22 10:58 AM) (06/04/22 8: 10 AM) Body Mass Index 20.02 kg/m2 20.02 kg/m2 [18.5-24.99 kg/m2] (06/01/22 9:28 AM) (06/01/22 4:13 AM) Blood Pressure 150/93 mm Hg 151/86 mm Hg 122/70 mm Hg [90-138/55-84 mm Hg] *H* *H* (06/04/22 8: 10 AM) (06/04/22 6:10 PM) (06/04/22 10:58 AM) Respiratory Rate [16-30 18 br/min 16 br/min 16 br/mi n br/min] (06/04/22 6:10 PM) (06/04/22 2:28 PM) (06/04/22 2:2 8 PM) Temperature [96.8-100.4 97.6 DegF 98.5 DegF 98 DegF DegF] (06/04/22 6:10 PM) (06/04/22 10:58 AM) (06/04/22 8: 10 AM) Liters per Minute 0 L/min 0 L/min 0 L/min (06/03/22 11:56 AM) (06/03/22 8:12 AM) (06/02/22 1 1:55 AM) Mode of Delivery (Oxygen) Nasal cannula Room air Room a ir (06/04/22 6:10 PM) (06/04/22 10:58 AM) (06/04/22 8: 10 AM) Blood pressure sites Arm, right Arm, right Arm, right (06/04/22 10:58 AM) (06/04/22 8:10 AM) (06/04/22 4: 30 AM) Temperature Route Oral Oral Oral (06/04/22 6:10 PM) (06/04/22 10:58 AM) (06/04/22 8: 10 AM) Dry Weight 53.2 kg 53.2 kg 52.2 kg (06/01/22 9:28 AM) (06/01/22 4:13 AM) (05/31/22 10:09 PM) Weight Obtained Via Patient/family stated (05/31/22 10:09 PM) Dry Weight Obtained Via Patient/family stated (05/31/22 10:09 PM) Social History Social History Type Response Smoking Status Former smoker, quit more julianna n 30 days ago; Other: quit about 2 years ago; entered on: 05/17/22 Sex Admission evaluation note Estrella RICHARDSON, Twan Lowe: PERFORM, MODIFY, MODIFY, MODIFY, MODIFY, MODIFY, MODIFY, MODIFY, MODIFY, MODIFY, MODIFY, MODIFY, MODIFY Event Display: Admission Note Authored Date: Patient: ??KATHARINA WELDON ? Age:??36 Years?Sex:??Female?:??1985?? 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 ?-there have been no recent changes in the patient's diet, medication, or activity.?ED course: On presentation to the ED vitals are stable Labs are significant for hemoglobin 11.4, glucose 121, CT abdomen: Concern of small bowel obstruction In the ED patient received Dilaudid, Zosyn, IV fluids Patient will be admitted for further management of abdominal pain, small bowel obstruction Review of Systems A full review of systems was completed and is otherwise negative except as mentioned in history of present illness.?? Objective Vital Signs?? Temperature: 97.7 DegF (06/01/22 04:13:00) Temperature Route: Oral (06/01/22 04:13:00) Pulse Rate:??92 bpm??High (06/01/22 04:13:00) Respiratory Rate: 16 br/min (06/01/22 04:58:00) Systolic Blood Pressure: 137 mm Hg (06/01/22 04:13:00) Diastolic Blood Pressure:??91 mm Hg??High (06/01/22 04:13:00) Blood pressure sites: Arm, right (06/01/22 04:13:00) Mean Arterial Pressure: 106 mm Hg (06/01/22 04:13:00) Pulse Pressure: 46 mm Hg (06/01/22 04:13:00) Oxygen Saturation: 95 % (06/01/22 04:13:00) Mode of Delivery (Oxygen): Room air (06/01/22 04:13:00) Early Warning Score: 4 (06/01/22 05:00:34) ? Physical Exam ?General: AAOx3, in no acute distress ?Neuro: CN 2-12 grossly intact, motor strength 5/5 in all extremities, no sensory deficits?HEENT: EOMI, PERRL, mouth/nose/pharynx WNL ?Neck: Supple, no LAD, JVD not congested ?Heart: Normal S1/S2, RRR, no MRGs ?Lungs: CTA b/l, no rales, rhonchi, wheezing or rubs ?Abdomen:??+ Diffuse abdominal??pain,??tenderness,??firm and distended abdomen ?Extremities: Warm, no edema b/l. ?Musculoskeletal:??Joints (no swelling, denies tenderness). ? 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 small bowel obstruction ??-Patient reported progressively worsening abdominal pain that started about 4 hours prior to presenting to the ED, earlier yesterday abdominal pain was mild then around 6 PM after dinner patient experienced acute worsening of the pain, colicky,??8/10, diffuse, associated with abdominal distention, nausea so patient presented to the ED for evaluation?? On presentation to the ED vitals are stable Labs are significant for hemoglobin 11.4, glucose 121, CT abdomen: Concern of small bowel obstruction In the ED patient received Dilaudid, Zosyn, IV fluids ?? Plan: IV fluids Follow-up with general surgery in the morning for further recommendations As needed Dilaudid,??Toradol, Zofran Patient is doing ostomy care herself ?? chronic medical conditions: Depression, obsessive compulsive disorder: We will hold oral agents for now??till evaluated by surgery, can resume home medications after cleared by surgery ?QM: ?Code status:??Full ?DVT prophylaxis:??Pneumoboots ?Diet:??Strict n.p.o. till evaluated by surgery ? Histories Allergies Allergies ?(Active and Proposed [...] rash ? Past Medical History/Problem List Active Problems??(12) Anxiety Colonic inertia s/p total colectomy and ileostomy placement 10/2018 Depression Eating disorder Fibromyalgia Herniated lumbar intervertebral disc Hypotension Metabolic alkalosis OCD (obsessive compulsive disorder) Opiate use Syncope and collapse Transaminitis ? Past Surgical History Upper gastrointestinal endoscopy: 12/18/19 Colectomy Name's operation on rectum ? Social History Alcohol Details:??Use: Never. Details:??Use: Current. ??Frequency: 1-2 times per month. Employment/School Details:??Status: Unemployed. Exercise Details:??Self assessment: Fair condition. Home/Environment Details:??Living situation: Home/Independent. ??Lives with: Significant other. Nutrition/Health Details:??Diet: ostemy diet. Sexual Details:??Sexually involved in last 6 months: Yes. ??Gender identity: Identifies as female. Substance Abuse Details:??Use: Past. ??Type: Cocaine. ??Other: Currently at [facility] for 3.5 weeks. Was using cocaine. Details:??Use: Past. Tobacco Details:??Use: 4 or less cigarettes(less than 1/4 pack)/day in last 30 days. Details:??Use: Former smoker, quit more than 30 days ago. ??Other: quit about 2 years ago. ? Family History Mat. Grandfather: Heart attack ? Medications Home Medications Benztropine (benztropine 0.5 mg oral tablet)?0.5?Milligram?1?tablet?By Mouth?2 times a day Clonazepam?2?Milligram?By Mouth?Daily at bedtime Clonidine (cloNIDine 0.1 mg oral tablet)?0.1?Milligram?1?tablet?By Mouth?Daily atbedtime Dicyclomine (Bentyl 10 mg oral capsule)?1?capsule?By Mouth?4 times a day?for 10?Days Duloxetine (duloxetine 60 mg oral enteric coated capsule)?90?Milligram?By Mouth?Daily Durable Medical Equipment (Catheter Supplies)?See Instructions?Perform straight catheterization as needed up to 7 ??times daily Fluoxetine (FLUoxetine 20 mg oral capsule)?20?Milligram?1?capsule?By Mouth?Daily Folic Acid (folic acid 1 mg oral tablet)?1?Milligram?1?tablet?By Mouth?Daily Gabapentin (gabapentin 800 mg oral tablet)?1?tab(s)?800?Milligram?By Mouth?2 times a day?200mg in am; 200mg at noon and 800mg at hs Loperamide (loperamide 2 mg oral capsule)?2?Milligram?1?capsule?By Mouth?Every 4 hours?as needed?for loose stool lurasidone (Latuda 80 mg oral tablet)?1?tab(s)?80?Milligram?By Mouth?Daily at bedtime?with food Miscellaneous Rx (Serum Magnesium levels in a week)?See Instructions?Lab test to be performedin a week Miscellaneous Rx (LFT in a week, results to PCP)?See Instructions?Lab test to be performed joshua week Thiamine (Vitamin B1 100 mg oral tablet)?100?Milligram?1?tablet?By Mouth?Daily?for 10?Days Trazodone (traZODone 100 mg oral tablet)?100?Milligram?1?tablet?By Mouth?Daily atbedtime Zolpidem (Ambien 10 mg oral tablet)?1?tab(s)?10?Milligram?By Mouth?Daily at bedtime ? Results Recent Labs BLOOD COUNT & DIFF WBC 10.5 k/mm3 ()?? 05/31/2022 22:31 RBC 3.79 m/mm3 (Low)?? 05/31/2022 22:31 Hgb 11.4 Gm/dL (Low)?? 05/31/2022 22:31 Hct 33.7 % (Low)?? 05/31/2022 22:31 MCV 88.9 femtoliters ()?? 05/31/2022 22:31 MCH 30.1 pg ()?? 05/31/2022 22:31 MCHC 33.8 g/dL ()?? 05/31/2022 22:31 Platelet Count 217 k/mm3 ()?? 05/31/2022 22:31 RDW-SD 42.4 femtoliters ()?? 05/31/2022 22:31 MPV 9.5 femtoliters ()?? 05/31/2022 22:31 Nucleated RBC (Automated) 0.0 #/100 WBC'S ()?? 05/31/2022 22:31 Abs. NRBC 0.0 k/mm3 ()?? 05/31/2022 22:31 Abs. Neut 6.8 k/mm3 ()?? 05/31/2022 22:31 Abs. Lymph 1.6 k/mm3 ()?? 05/31/2022 22:31 Abs. [place] 0.6 k/mm3 ()?? 05/31/2022 22:31 Abs. Eo 1.4 k/mm3 (High)?? 05/31/2022 22:31 Abs. Baso 0.0 k/mm3 ()?? 05/31/2022 22:31 Neut % 64.5 % ()?? 05/31/2022 22:31 Lymph % 15.7 % ()?? 05/31/2022 22:31 [place] % 5.4 % ()?? 05/31/2022 22:31 Eos % 13.7 % (High)?? 05/31/2022 22:31 Baso % 0.4 % ()?? 05/31/2022 22:31 Imm Gran 0.3 % ()?? 05/31/2022 22:31 Abs. Imm Gran 0.0 k/mm3 ()?? 05/31/2022 22:31 ?? CHEM GENERAL Sodium 138 mmol/L ()?? 05/31/2022 22:31 Potassium 3.9 mmol/L ()?? 05/31/2022 22:31 Chloride 98 mmol/L ()?? 05/31/2022 22:31 Bicarbonate Level 31 mmol/L (High)?? 05/31/2022 22:31 Anion Gap 9 ()?? 05/31/2022 22:31 Glucose Level 121 mg/dL (High)?? 05/31/2022 22:31 BUN 11 mg/dL ()?? 05/31/2022 22:31 Creatinine-Blood 0.7 mg/dL ()?? 05/31/2022 22:31 Estimated GFR Creatinine 111 ML/MIN/1.73 M2 ()?? 05/31/2022 22:31 Calcium 10.0 mg/dL ()?? 05/31/2022 22:31 Protein, Total 7.4 Gm/dL ()?? 05/31/2022 22:31 Albumin 4.1 Gm/dL ()?? 05/31/2022 22:31 AG Ratio 1.2 ()?? 05/31/2022 22:31 Alkaline Phosphatase 55 units/L ()?? 05/31/2022 22:31 Lipase 19 units/L ()?? 05/31/2022 22:31 AST (SGOT) 31 units/L ()?? 05/31/2022 22:31 ALT (SGPT) 21 units/L ()?? 05/31/2022 22:31 Bilirubin, Total 0.3 mg/dL ()?? 05/31/2022 22:31 Lactate 1.4 mmol/L ()?? 05/31/2022 22:31 ?? ENDOCRINE/TUMOR MARKER Blood <1 mIU/mL ()?? 05/31/2022 22:31 ?? FLUID STUDIES Hold Other SPECIMEN DISCARDED AFTER 1 WEEK ()?? 05/31/2022 22:31 ?? HEME OTHER Hold Blue Top SPECIMEN DISCARDED AFTER 4 HOURS. ()?? 05/31/2022 22:31 ?? MISC. CHEMISTRY Hold Green Top SPECIMEN DISCARDED AFTER 1 WEEK ()?? 05/31/2022 22:31 ?? VIROLOGY COVID-19 POC Result NEGATIVE ()?? 05/31/2022 23:35 ? Hospital Progress note Tatum Fan RN: PERFORM, SIGN, VERIFY Event Display: Progress Note Hospital Authored Date: Patient: AKTHARINA WELDON Age: 36 years Sex: Female : 1985 Associated Diagnoses: None Author: Tatum Fan RN Findings Narrative/Incidental Report and safety check done with [facility] at approximately 1900. Discharge instructions provided by previous RN. Patients ride arrived, IV removed, patient discharged at 1936..Stephanie Pelayo RN: SIGN, MODIFY, PERFORM, SIGN, VERIFY Event Display: Progress Note Hospital Authored Date: Patient: KATHARINA WELDON Age: 36 years Sex: Female : 1985 Associated Diagnoses: None Author: Stephanie Pelayo RN Findings Problem Related to Alteration in Comfort : Alteration in Comfort/new 06/04/2022 1:00 EST Alteration in Comfort Related to Disease process BH Goals/Interventions, Comfort Yes Comfort, Problem Ongoing Yes Comfort, Problem Start 06/02/2022 20:21 Goals & Outcomes: Comfort Pt will report acceptable level of comfort & pain control, Non-verbal indicators will indicate comfort/pain control Interventions Implemented: Comfort Assess pain using appropriate pain scale/tools, Assess aggravating factors & prevent them accordingly, Assess alleviating factors & promote them accordingly Patient Progression, Comfort Pt progressing according to plan Reviewed plan with, Comfort Patient 06/03/2022 10:00 EST Alteration in Comfort Related to Disease process Goals/Interventions, Comfort Yes Comfort, Problem Ongoing Yes Comfort, Problem Start 06/02/2022 20:21 Goals & Outcomes: Comfort Pt will report acceptable level of comfort & pain control, Non-verbal indicators will indicate comfort/pain control Interventions Implemented: Comfort Assess pain using appropriate pain scale/tools, Assess aggravating factors & prevent them accordingly, Assess alleviating factors & promote them accordingly Patient Progression, Comfort Pt progressing according to plan Reviewed plan with, Comfort Patient 06/02/2022 20:00 EST Alteration in Comfort Related to Disease process Goals/Interventions, Comfort Yes Comfort, Problem Ongoing Yes Comfort, Problem Start 06/02/2022 20:21 Goals & Outcomes: Comfort Pt will report acceptable level of comfort & pain control, Non-verbal indicators will indicate comfort/pain control Interventions Implemented: Comfort Assess pain using appropriate pain scale/tools, Assess aggravating factors & prevent them accordingly, Assess alleviating factors & promote them accordingly Patient Progression, Comfort Pt progressing according to plan Reviewed plan with, Comfort Patient . Alteration in Gastrointestinal : Alteration in Gastrointestinal Func/new 06/04/2022 14:00 EST Alteration in GI status Related to Ostomy, GI Goals/Interventions, Gastrointestinal Yes Gastrointestinal, Problem Resolved 06/04/2022 14:31 Gastrointestinal, Problem Start 06/01/2022 4:30 Goals & Outcomes, Gastrointestinal Establish a regular pattern of elimination for pt, Nutritional intake is adequate for metabolic needs, Pt will achieve normal/improved fluid balance, Pt will have a bowel movement prior to discharge, Pt will maintain adequate GI function appropriate for pt, Pt will maintain normal elimination patterns, Pt will resume/maintain adequate hemodynamic status, Pt will tolerate age appropriate diet prior to discharge, Ostomy will be functioning properly prior to D/C,Pt will correctly state/demonstrate applying ostomy pouch, Pt will correctly state/demonstrate emptying ostomy pouch, Pt will view ostomy Interventions, Gastrointestinal Assess/monitor abdomen for distention, tenderness, Assess/monitor number of bowel movements, Assess/monitor color, quantity, quality, consistency of stoo, Assess/monitor pt for nausea, vomiting, Assess/monitor intake & output, Assess if pt tolerating diet, Teach Pt/caregiver re: nutritional intake & dietary restrict Patient Progression, Gastrointestinal Resolved problem Reviewed plan with, Gastrointestinal Patient 06/04/2022 1:00 EST Alteration in GI status Related to Ostomy, GI BH Goals/Interventions, Gastrointestinal Yes Gastrointestinal, Problem Start 06/01/2022 4:30 Goals & Outcomes, Gastrointestinal Establish a regular pattern of elimination for pt, Nutritional intake is adequate for metabolic needs, Pt will achieve normal/improved fluid balance, Pt will have a bowel movement prior to discharge, Pt will maintain adequate GI function appropriate for pt, Pt will maintain normal elimination patterns, Pt will resume/maintain adequate hemodynamic status, Pt will tolerate age appropriate diet prior to discharge, Ostomy will be functioning properly prior to D/C,Pt will correctly state/demonstrate applying ostomy pouch, Pt will correctly state/demonstrate emptying ostomy pouch, Pt will view ostomy Interventions, Gastrointestinal Assess/monitor abdomen for distention, tenderness, Assess/monitor abdominal girth & bowel function, Assess/monitor bowel pattern, bowel sounds, flatus, Assess/monitor number of bowel movements, Assess/monitor color, quantity, quality, consistency of stoo, Assess/monitor pt for nausea, vomiting, Assess/monitor effects of re-hydration, Assess/monitor intake & output, Assess if pt tolerating diet, Assess & Monitor stoma & ramon- stomal, Encourage self participation as much as possible, If leaking, RN should change appliance immediately, Measure stoma; cutwafer to fit stoma Patient Progression, Gastrointestinal Pt progressing according to plan Reviewed plan with, Gastrointestinal Patient 06/03/2022 10:00 EST Alteration in GI status Related to Ostomy, GI BH Goals/Interventions, Gastrointestinal Yes Gastrointestinal, Problem Start 06/01/2022 4:30 Goals & Outcomes, Gastrointestinal Establish a regular pattern of elimination for pt, Nutritional intake is adequate for metabolic needs, Pt will achieve normal/improved fluid balance, Pt will have a bowel movement prior to discharge, Pt will maintain adequate GI function appropriate for pt, Pt will maintain normal elimination patterns, Pt will resume/maintain adequate hemodynamic status, Pt will tolerate age appropriate diet prior to discharge, Ostomy will be functioning properly prior to D/C,Pt will correctly state/demonstrate applying ostomy pouch, Pt will correctly state/demonstrate emptying ostomy pouch, Pt will view ostomy Interventions, Gastrointestinal Assess/monitor abdomen for distention, tenderness, Assess/monitor abdominal girth & bowel function, Assess/monitor bowel pattern, bowel sounds, flatus, Assess/monitor number of bowel movements, Assess/monitor color, quantity, quality, consistency of stoo, Assess/monitor pt for nausea, vomiting, Assess/monitor effects of re-hydration, Assess/monitor intake & output, Nasogastric to LWS as ordered;care per Standards of Practice, Assess & Monitor stoma & ramon-stomal Patient Progression, Gastrointestinal Pt progressing according to plan Reviewed plan with, Gastrointestinal Patient 06/02/2022 20:00 EST Alteration in GI status Related to Ostomy, GI Goals/Interventions, Gastrointestinal Yes Gastrointestinal, Problem Start 06/01/2022 4:30 Goals & Outcomes, Gastrointestinal Establish a regular pattern of elimination for pt, Nutritional intake is adequate for metabolic needs, Pt will achieve normal/improved fluid balance, Pt will have a bowel movement prior to discharge, Pt will maintain adequate GI function appropriate for pt, Pt will maintain normal elimination patterns, Pt will resume/maintain adequate hemodynamic status, Pt will tolerate age appropriate diet prior to discharge, Ostomy will be functioning properly prior to D/C,Pt will correctly state/demonstrate applying ostomy pouch, Pt will correctly state/demonstrate emptying ostomy pouch, Pt will view ostomy Interventions, Gastrointestinal Assess/monitor abdomen for distention, tenderness, Assess/monitor abdominal girth & bowel function, Assess/monitor bowel pattern, bowel sounds, flatus, Assess/monitor color, quantity, quality, consistency of stoo, Assess/monitor pt for nausea, vomiting, Assess/monitor intake & output, Taking PO: Encourage/monitor intake & swallowing ability, Nasogastric toLWS as ordered;care per Standards of Practice Patient Progression, Gastrointestinal Pt progressing according to plan Reviewed plan with, Gastrointestinal Patient 06/02/2022 11:00 EST Alteration in GI status Related to Ostomy, GI, Other: SBO Goals/Interventions, Gastrointestinal Yes Gastrointestinal, Problem Start 06/01/2022 4:30 Goals & Outcomes, Gastrointestinal Establish a regular pattern of elimination for pt, Nutritional intake is adequate for metabolic needs, Pt will achieve normal/improved fluid balance, Pt will have a bowel movement prior to discharge, Pt will maintain adequate GI function appropriate for pt, Pt will maintain normal elimination patterns, Pt will resume/maintain adequate hemodynamic status, Pt will tolerate age appropriate diet prior to discharge, Resolved problem, Goals/Outcomes met, Ostomy willbe functioning properly prior to D/C, Pt will correctly state/demonstrate applying ostomy pouch, Pt will correctly state/demonstrate emptying ostomy pouch, Pt will view ostomy Interventions, Gastrointestinal Assess/monitor abdomen for distention, tenderness, Assess/monitor abdominal girth & bowel function, Assess/monitor bowel pattern, bowel sounds, flatus, Assess/monitor number of bowel movements, Assess/monitor color, quantity, quality, consistency of stoo, Assess/monitor pt for nausea, vomiting, Assess/monitor effects of re-hydration, Assess/monitor intake & output, Provide/encourage oral care if NPO Patient Progression, Gastrointestinal Pt progressing according to plan Reviewed plan with, Gastrointestinal Patient . Pt managing ostomy bag and emptying stool and gas independently. C/o abdominal pain. Given PRN meds with + effect. Pt ambulating in [place] independently. Tolerating PO. Plan for discharge today to home with name on wait list for rehab. Armenfrienpato [place] to pick patient up.Pierce ZHANG, Stephanie: PERFORM Event Display: Progress Note Hospital Authored Date: Pt valuables accounted for, all meds from safe given back to patient and controlled substances verified by 2 RN's.Luis Alberto RICHARDSON, Teri K: MODIFY, SIGN Pam Charles MD: PERFORM, SIGN Melvin RICHARDSON, Pam: SIGN, VERIFY Pam Charles MD: VERIFY Event Display: Progress Note Hospital Authored Date: Patient: KATHARINA WELDON Age: 36 years Sex: Female : 1985 Associated Diagnoses: None Author: Pam Charles MD Subjective Patient seen and examined at bedside this morning. No acute events overnight. States she is feeling well with much improved abdominal pain. Tolerating clear liquids without nausea or vomiting. Voiding without difficulty. Ostomy with liquid stool output. Denies nausea, vomiting, fever, chills, chest pain, shortness of breath. Objective Temperature 98.7 (05:34) Systolic Blood Pressure 139 (05:34) Diastolic Blood Pressure 85 (05:34) Pulse 65 (05:34) SpO2 97 (05:34) Respiratory Rate 16 (06:14) Physical Exam General: no acute distress, awake, alert HEENT: trachea midline Cardio: RRR Pulm: no increased work of breathing Abd: soft, nondistended, minimal tenderness to palpation, stoma pink and well perfused, liquid stooloutput in appliance Ext: no bilateral LE edema Neuro: AAOx3 Results Review 7 Day Results Results Laboratory : LABORATORY 06/04/2022 5:50 EST WBC 7.5 k/mm3 RBC 3.38 m/mm3 L Hgb 9.9 Gm/dL L Hct 30.0 % L MCV 88.8 femtoliters MCH 29.3 pg MCHC 33.0 g/dL Platelet Count 177 k/mm3 RDW-SD 42.5 femtoliters MPV 9.8 femtoliters Nucleated RBC (Automated) 0.0 #/100 WBC'S Abs. NRBC 0.0 k/mm3 Sodium 138 mmol/L Potassium 3.9 mmol/L Chloride 104 mmol/L Bicarbonate Level 26 mmol/L Anion Gap 8 Glucose Level 80 mg/dL BUN 8 mg/dL Creatinine-Blood 0.5 mg/dL Estimated GFR Creatinine 125 ML/MIN/1.73 M2 Calcium 8.9 mg/dL Phosphorus 3.0 mg/dL Magnesium 1.7 mg/dL Impression and Plan Katharina Weldon is a 36 year old female with PMH of colonic inertia s/p total abdominal colectomy and end ileostomy (10/2018) complicated by multiple bowel obstructions (treated conservatively), rectal prolapse s/p Delorme, anxiety, depression, OCD, opioid use disorder, and fibromyalgia who presented to the Emergency Department overnight with acute abdominal pain and distension. She is s/p disimpaction in OR on 06/01/22. Subsequent SBO protocol demonstrated contrast throughout her small bowel. She has had significant improvement in her abdominal pain. She is having appropriate ileostomy output and tolerating a diet. No further surgical intervention is indicated at this time. Recommendations: - Diet as tolerated - Continue Reglan 10mg TID - Remainder of care per primary team. - Surgery will sign off. Discussed with Dr. Sahu. Examined the patient and agrees with the evaluation and plan Note Francesco Navarrete MD, Prasanth: PERFORM Event Display: Discharge/Transfer Note Hospital Authored Date: [id number] Patient: ??KATHARINA WELDON ? Age:??36 Years?Sex:??Female?:??1985?? Patient Information Discharge Location: [facility] [place] Primary Care Physician: Caroline Thapa MD Admit Date/Time: 06/01/22 00:59 Discharge Disposition Discharge Disposition: Home: No Services Discharge Diagnosis Small bowel obstruction??status post disimpaction Extensive psychiatric illness History of urinary retention _ Discharge Medications Benztropine (benztropine 1 mg oral tablet)?1?Milligram?1?tablet?By Mouth?2 times aday Clonazepam?2?Milligram?By Mouth?Daily at bedtime Clonidine (cloNIDine 0.1 [...] capsule)?2?Milligram?1?capsule?By Mouth?Every 4 hours?as needed?for loose stool Lorazepam (LORazepam 0.5 mg oral tablet)?1?tab(s)?0.5?Milligram?By Mouth?Daily at bedtime?as needed?anxiety?through 06.02 lurasidone (Latuda 80 mg oral tablet)?1?tab(s)?80?Milligram?By Mouth?Daily at bedtime?with food Metoclopramide (Reglan 10 mg oral tablet)?1?tab(s)?10?Milligram?By Mouth?3 times aday before meals and bedtime?for 10?Days Miscellaneous Rx (Serum Magnesium levels in a week)?See Instructions?Lab test to be performed in a week Miscellaneous Rx (LFT in a week, results to PCP)?See Instructions?Lab test to be performed in a week Oxycodone (oxyCODONE 5 mg oral tablet)?2.5?Milligram?0.5?tablet?By Mouth?3 times aday?as needed?for 2?Days?Pain , Moderate Thiamine (Vitamin B1 100 mg oral tablet)?100?Milligram?1?tablet?By Mouth?Daily?for 10?Days Trazodone (traZODone 100 mg oral tablet)?100?Milligram?1?tablet?By Mouth?Daily at bedtime Zolpidem (Ambien 10 mg oral tablet)?1?tab(s)?10?Milligram?By Mouth?Daily at bedtime?? Medications Started Reglan, oxycodone Medications Discontinued None Doses Changed None PCP Follow-Up/Heads-Up Follow-up in about 1 to 2 weeks Objective Assessment and Plan 36 year-old female with a history of anorexia, fibromyalgia, OCD, opiate use disorder, rectal prolapse, and colonic inertia s/p colectomy with end ileostomy??who presented today to the ED??due to??abdominal pain? Small bowel obstruction??secondary to constipation P/w??progressively worsening abdominal pain that started about 4 hours prior to presenting to the ED,?? Acute worsening of the pain, colicky,??02/10, diffuse, associated with abdominal distention, nausea. CT a/p: SBO with a transition point just upstream to the ileostomy. No evidence of bowel ischemia orperforation. Patient was initially started on conservative medical management with IV fluids, n.p.o., strict bowel rest and NG tube for decompression. Surgery was consulted. Status post disimpaction at the ostomy??in the OR (hard stools/constipation) 06/01/22 Small bowel??series:??Contrast throughout the small bowel.?? Abdominal pain has improved. Patient has an appropriate ileostomy output and is tolerating diet.?? No further surgical intervention required at this time. Surgery recommended advancing diet, continue Reglan.?? Follow-up with??PCP in about 1 to 2 weeks. Short supply of oxycodone??for abdominal pain-2 days, MassPAT reviewed.?? Continue ostomy care. ?? History of urinary retention Patient self??-straight cath??for retention. Patient is voiding without any difficulty. ?? Chronic medical conditions: Extensive psychiatric illness: Depression, obsessive compulsive disorder:??Resumed??all??home medications ? Discharge home today. ?? Disclaimer: This dictation was accomplished with use of [employer] voice recognition software, prone to medical word misidentifications and grammatical errors. The physician does strive to identify and correct these, but some could still be present. Please do not hesitate to contact physician for clarifications.? Vital Signs?? Temperature: 98 DegF (06/04/22 08:10:00) Temperature Route: Oral (06/04/22 08:10:00) Pulse Rate: 65 bpm (06/04/22 08:10:00) Respiratory Rate: 16 br/min (06/04/22 08:10:00) Systolic Blood Pressure: 122 mm Hg (06/04/22 08:10:00) Diastolic Blood Pressure: 70 mm Hg (06/04/22 08:10:00) Blood pressure sites: Arm, right (06/04/22 08:10:00) Mean Arterial Pressure: 87 mm Hg (06/04/22 08:10:00) Pulse Pressure: 52 mm Hg (06/04/22 08:10:00) Oxygen Saturation: 97 % (06/04/22 08:10:00) Liters per Minute: 0 L/min (06/03/22 11:56:00) Mode of Delivery (Oxygen): Room air (06/04/22 08:10:00) Early Warning Score: 0 (06/04/22 08:11:27) ? . Physical Exam General: Well nourished, appears stated age, anxious in moderate distress. HEENT: moist oral mucosa. PERRLA, EOMI.??NG connected to low wall suction. NECK: No JVD. No bruits. Heart: Regular rate. S1 and s2 heard. No murmer, rub or gallop. Lungs: Clear to auscultation. No wheeze, crackles or rhonchi Abdomen : Soft, nondistended, nontender, active bowel sounds. Extremities: No pedal edema, swelling or cyanosis. peripheral pulses 2+ Neurological : grossly non focal. AA0 X3.? Pscy: Mood and affect appropriate. Surgical Procedures Procedure Other OR 06/01/2022 10:34 Consultants Surgery consulted Pending Results No Pending Results Patient Education Titles Small Bowel Obstruction?? Follow-Up Appointments Added Follow Up ?Time Frame ?Comments Caroline Thapa MD?1 to 2 weeks Post Discharge Care Discharge ?06/04/22 10:50:00 EST Discharge Prescriptions ?ePrescribed, ??06/04/22 10:50:00 EST Results Discharge Labs BLOOD COUNT & DIFF WBC 7.5 k/mm3 ()?? 06/04/2022 05:50 RBC 3.38 m/mm3 (Low)?? 06/04/2022 05:50 Hgb 9.9 Gm/dL (Low)?? 06/04/2022 05:50 Hct 30.0 % (Low)?? 06/04/2022 05:50 MCV 88.8 femtoliters ()?? 06/04/2022 05:50 MCH 29.3 pg ()?? 06/04/2022 05:50 MCHC 33.0 g/dL ()?? 06/04/2022 05:50 Platelet Count 177 k/mm3 ()?? 06/04/2022 05:50 RDW-SD 42.5 femtoliters ()?? 06/04/2022 05:50 MPV 9.8 femtoliters ()?? 06/04/2022 05:50 Nucleated RBC (Automated) 0.0 #/100 WBC'S ()?? 06/04/2022 05:50 Abs. NRBC 0.0 k/mm3 ()?? 06/04/2022 05:50 Abs. Neut 6.8 k/mm3 ()?? 05/31/2022 22:31 Abs. Lymph 1.6 k/mm3 ()?? 05/31/2022 22:31 Abs. [place] 0.6 k/mm3 ()?? 05/31/2022 22:31 Abs. Eo 1.4 k/mm3 (High)?? 05/31/2022 22:31 Abs. Baso 0.0 k/mm3 ()?? 05/31/2022 22:31 Neut % 64.5 % ()?? 05/31/2022 22:31 Lymph % 15.7 % ()?? 05/31/2022 22:31 [place] % 5.4 % ()?? 05/31/2022 22:31 Eos % 13.7 % (High)?? 05/31/2022 22:31 Baso % 0.4 % ()?? 05/31/2022 22:31 Imm Gran 0.3 % ()?? 05/31/2022 22:31 Abs. Imm Gran 0.0 k/mm3 ()?? 05/31/2022 22:31 ?? CHEM GENERAL Sodium 138 mmol/L ()?? 06/04/2022 05:50 Potassium 3.9 mmol/L ()?? 06/04/2022 05:50 Chloride 104 mmol/L ()?? 06/04/2022 05:50 Bicarbonate Level 26 mmol/L ()?? 06/04/2022 05:50 Anion Gap 8 ()?? 06/04/2022 05:50 Glucose Level 80 mg/dL ()?? 06/04/2022 05:50 Glucose, POC 87 mg/dL ()?? 06/03/2022 06:43 BUN 8 mg/dL ()?? 06/04/2022 05:50 Creatinine-Blood 0.5 mg/dL ()?? 06/04/2022 05:50 Estimated GFR Creatinine 125 ML/MIN/1.73 M2 ()?? 06/04/2022 05:50 Calcium 8.9 mg/dL ()?? 06/04/2022 05:50 Phosphorus 3.0 mg/dL ()?? 06/04/2022 05:50 Magnesium 1.7 mg/dL ()?? 06/04/2022 05:50 Protein, Total 7.4 Gm/dL ()?? 05/31/2022 22:31 Albumin 4.1 Gm/dL ()?? 05/31/2022 22:31 AG Ratio 1.2 ()?? 05/31/2022 22:31 Alkaline Phosphatase 55 units/L ()?? 05/31/2022 22:31 Lipase 19 units/L ()?? 05/31/2022 22:31 AST (SGOT) 31 units/L ()?? 05/31/2022 22:31 ALT (SGPT) 21 units/L ()?? 05/31/2022 22:31 Bilirubin, Total 0.3 mg/dL ()?? 05/31/2022 22:31 Lactate 1.4 mmol/L ()?? 05/31/2022 22:31 ?? ENDOCRINE/TUMOR MARKER Blood <1 mIU/mL ()?? 05/31/2022 22:31 ? FLUID STUDIES Hold Other SPECIMEN DISCARDED AFTER 1 WEEK ()?? 05/31/2022 22:31 ? HEME OTHER Hold Blue Top SPECIMEN DISCARDED AFTER 4 HOURS. ()?? 05/31/2022 22:31 ? MISC. CHEMISTRY Hold Green Top SPECIMEN DISCARDED AFTER 1 WEEK ()?? 05/31/2022 22:31 ? VIROLOGY COVID-19 by RT-PCR NEGATIVE ()?? 05/31/2022 22:48 COVID-19 PCR Specimen Source NASAL ()?? 06/03/2022 05:25 COVID-19 PCR Result NEGATIVE ()?? 06/03/2022 05:25 COVID-19 POC Result NEGATIVE ()?? 05/31/2022 23:35 ? 45 minutes spent on discharge Stephanie Pelayo RN: PERFORM Event Display: Patient Education/Instruction Authored Date: Inpatient Adult Discharge Instructions [place] [id number] Name: KATHARINA WELDON : 1985 Visit: 06/01/2022 00:59:00 Current Date: 06/04/2022 18:16 Account: [id number] Inpatient Adult Discharge Instructions We would like [...] and their families. Surveys are administered by [employer] ?? If further treatment with your primary care physician or another doctor is recommended, it is important for you to keep the appointment. Call your primary care physician or return to the Emergency Department immediately if your condition worsens, fails to improve, or new symptoms develop. If you need to find a doctor, you can call [email or web address] for a referral at [phone] or toll free at [phone] or log in to [email or web address].. ?? You can view and manage your care through the patient portal or by using a health care john of your choosing. [employer] is a website that allows you to securely view your medical information including your hospital discharge summary, office visit summaries, medications and follow-up visits. You can also request appointments, renew medications, and request access to your medical information using a health care john of your choosing, or just ask a question. You can enroll at [email or web address] or register during your next office visit. You have been discharged from [facility], Patient Care Unit: [facility]. If you have any questions regarding these instructions after you leave, please call us and we will be happy to assist you. [facility] Your Care Team Attending Physician Francesco Navarrete MD, Prasanth Consulting Providers Camila RICHARDSON, Debbie Discharging Providers Francesco Navarrete MD, Prasanth Reason for Admission procedure Your Diagnosis sbo Tests Performed Below is a partial list of the tests performed during your hospitalization. You may have had other tests and procedures not included in this list. Please discuss all test results with your provider. Basic Metabolic Panel BUN Calcium Level CBC CBC w/ Differential COMPREHENSIVE METABOLIC PANL COVID-19 (2019 Novel Coronavirus) PCR COVID-19 (Novel Coronavirus), Rapid PCR COVID-19 RNA POC Creatinine GLUCOSE POC HOLD BLUE TUBE HOLD GREEN TUBE HOLD OTHER TUBE LACTIC ACID LIPASE Lytes Magnesium Level Phosphorus Level Serum Quantitative CT Abd/Pelvis W/ IV Contrast Only CXR Portable XR Chest Portable XR Small Bowel Water Soluble Primary Care Provider Caroline Thapa MD Advance Directive Health Care Proxy on File No Patient refuses to discuss No qualifying data available. Discharge Vitals Temperature: 97.6 DegF Height: 163 cm Pulse Rate: 65 bpm Weight: 53.2 kg Respiratory Rate: 18 br/min Body Mass Index: 20.02 kg/m2 Systolic Blood Pressure:??150 mm Hg??High Body surface area: 1.55 Diastolic Blood Pressure:??93 mm Hg??High ?? Oxygen Saturation: 98 % ?? Studies Pending All tests and labs ordered during this hospital stay have been completed unless listed below. Pleasediscuss all pending results with your provider listed above in these instructions. ?? No incomplete studies found What to do next Instructions From Your Doctor Discharge Orders You Need to Schedule the Following Appointments Follow Up with??Caroline Thapa MD When??Within 1 to 2 weeks Where: [address] [place] [address]- Business (1) Discharge Medications KATHARINA WELDON :1985 Visit Date:06/01/2022 Medications: Please continue your medications until treatment is completed or stopped by your provider. Medications not listed below should be discontinued. Discuss any questions related to medications with your provider. What How Much When Why Instructions Next Dose New Metoclopramide (Reglan 10 mg oral tablet) 1 tab(s) Oral 3 times a day before meals and bedtime Duration: 10 Days Pickup at [facility] New Oxycodone (oxyCODONE 5 mg oral tablet) 0.5 tab(s) Oral 3 times a day as needed for Pain , Moderate Duration: 2 Days Pickup at [facility] Changed Benztropine (benztropine 1 mg oral tablet) 1 tab(s) Oral Twice a day Changed Clonazepam 2 Milligram Oral Daily at Bedtime Unchanged Clonidine (cloNIDine 0.1 mg oral tablet) 1 tab(s) Oral Daily at Bedtime Unchanged Dicyclomine (Bentyl 10 mg oral capsule) 1 capsule Oral 4 times a day Duration: 10 Days Unchanged Duloxetine (duloxetine 60 mg oral enteric coated capsule) 90 Milligram Oral Daily Unchanged Durable Medical Equipment (Catheter Supplies) See instructions Urinary retention Perform straight catheterization as needed up to 7 ??times daily ?? Unchanged Fluoxetine (FLUoxetine 20 mg oral capsule) 1 capsule Oral Daily Unchanged Folic Acid (folic acid 1 mg oral tablet) 1 tab(s) Oral Daily Unchanged Gabapentin (gabapentin 800 mg oral tablet) 1 tab(s) Oral Twice a day 200mg in am; 200mg at noon and 800mg at hs ?? Unchanged Loperamide (loperamide 2 mg oral capsule) 1 capsule Oral Every 4 hours as needed for for loose stool Unchanged Lorazepam (LORazepam 0.5 mg oral tablet) 1 tab(s) Oral Daily at Bedtime as needed for anxiety through 06.02 ?? Unchanged lurasidone (Latuda 80 mg oral tablet) 1 tab(s) Oral Daily at Bedtime with food ?? Unchanged Miscellaneous Rx (LFT in a week, results to PCP) See instructions Lab test to be performed in a week ?? Unchanged Miscellaneous Rx (Serum Magnesium levels in a week) See instructions Lab test to be performed in a week ?? Unchanged Thiamine (Vitamin B1 100 mg oral tablet) 1 tab(s) Oral Daily Duration: 10 Days Unchanged Trazodone (traZODone 100 mg oral tablet) 1 tab(s) Oral Daily at Bedtime Unchanged Zolpidem (Ambien 10 mg oral tablet) 1 tab(s) Oral Daily at Bedtime Pharmacy Information [facility]-: [address] [facility] [place] [id number] [phone] Test Results Below is a partial list of the most recent Laboratory test results done prior to this discharge. You may have had other tests and procedures not included in this list. Please discuss all test results with your provider. Basic Metabolic Panel (06/04/2022) ???Sodium - 138 mmol/L???Potassium - 3.9 mmol/L???Chloride - 104 mmol/L???Bicarbonate Level - 26 mmol/L???Anion Gap - 8???Glucose Level - 80 mg/dL???BUN - 8 mg/dL???Creatinine-Blood - 0.5 mg/dL???Estimated GFR Creatinine - 125 ML/MIN/1.73 M2???Calcium - 8.9 mg/dL BUN (06/01/2022) ???BUN - 9 mg/dL Calcium Level (06/01/2022) ???Calcium - 9.6 mg/dL CBC (06/04/2022) ???WBC - 7.5 k/mm3???RBC - 3.38 m/mm3???Hgb - 9.9 Gm/dL???Hct - 30.0 %???MCV - 88.8 femtoliters???MCH - 29.3 pg???MCHC - 33.0 g/dL???Platelet Count - 177 k/mm3???RDW-SD - 42.5 femtoliters???MPV - 9.8 femtoliters???Nucleated RBC (Automated) - 0.0 #/100 WBC'S???Abs. NRBC - 0.0 k/mm3 CBC w/ Differential (05/31/2022) ???WBC - 10.5 k/mm3???RBC - 3.79 m/mm3???Hgb - 11.4 Gm/dL???Hct - 33.7 %???MCV - 88.9 femtoliters???MCH - 30.1 pg???MCHC - 33.8 g/dL???Platelet Count - 217 k/mm3???RDW-SD - 42.4 femtoliters???MPV - 9.5femtoliters???Nucleated RBC (Automated) - 0.0 #/100 WBC'S???Abs. NRBC - 0.0 k/mm3???Abs. Neut - 6.8 k /mm3???Abs. Lymph - 1.6 k/mm3???Abs. [place] - 0.6 k/mm3???Abs. Eo - 1.4 k/mm3???Abs. Baso - 0.0 k/mm3???Neut % - 64.5 %???Lymph % - 15.7 %???[place] % - 5.4 %???Eos % - 13.7 %???Baso % - 0.4 %???Imm Gran - 0.3 %???Abs. Imm Gran - 0.0 k/mm3 COMPREHENSIVE METABOLIC PANL (05/31/2022) ???Sodium - 138 mmol/L???Potassium - 3.9 mmol/L???Chloride - 98 mmol/L???Bicarbonate Level - 31 mmol/L???Anion Gap - 9???Glucose Level - 121 mg/dL???BUN - 11 mg/dL???Creatinine-Blood - 0.7 mg/dL???Estimated GFR Creatinine - 111 ML/MIN/1.73 M2???Calcium - 10.0 mg/dL???Protein, Total - 7.4 Gm/dL???Albumin - 4.1 Gm/dL???AG Ratio - 1.2???Alkaline Phosphatase - 55 units/L???AST (SGOT) - 31 units/L???ALT (SGPT) - 21 units/L???Bilirubin, Total - 0.3 mg/dL COVID-19 (2019 Novel Coronavirus) PCR (06/03/2022) ???COVID-19 PCR Specimen Source - NASAL???COVID-19 PCR Result - NEGATIVE COVID-19 (Novel Coronavirus), Rapid PCR (05/31/2022) ???COVID-19 by RT-PCR - NEGATIVE COVID-19 RNA POC (05/31/2022) ???COVID-19 POC Result - NEGATIVE Creatinine (06/02/2022) ???Creatinine-Blood - 0.6 mg/dL???Estimated GFR Creatinine - 117 ML/MIN/1.73 M2 GLUCOSE POC (06/03/2022) ???Glucose, POC - 87 mg/dL HOLD BLUE TUBE (05/31/2022) ???Hold Blue Top - SPECIMEN DISCARDED AFTER 4 HOURS. HOLD GREEN TUBE (05/31/2022) ???Hold Green Top - SPECIMEN DISCARDED AFTER 1 WEEK HOLD OTHER TUBE (05/31/2022) ???Hold Other - SPECIMEN DISCARDED AFTER 1 WEEK LACTIC ACID (05/31/2022) ???Lactate - 1.4 mmol/L LIPASE (05/31/2022) ???Lipase - 19 units/L Lytes (06/02/2022) ???Sodium - 140 mmol/L???Potassium - 4.0 mmol/L???Chloride - 104 mmol/L???Bicarbonate Level - 28 mmol/L???Anion Gap - 8 Magnesium Level (06/04/2022) ???Magnesium - 1.7 mg/dL Phosphorus Level (06/04/2022) ???Phosphorus - 3.0 mg/dL Serum Quantitative (05/31/2022) ? ?Blood - <1 mIU/mL Allergies (NKA means No Known Allergies) Buspar??(rash) [...] with your Discharge Instructions. Small Bowel Obstruction?? Small Bowel Obstruction?? Valuables and Belongings I fully understand and agree that [facility] accepts no responsibility for all my personal [...] encouraged to send valuables and belongings home. ?? Safe envelope number: [phone], [phone] Disposition of Belongings: Other: Meds locked in Spoke 4 Pyxis Date for Pt to Sign Valuables/Belongings: 06/01/22 04:44:00 ?? Other Discharge Information ? Pulmonary Rehab Status?? Pulmonary Rehab Discharge Status?? Respiratory Rate: 18 br/min ? Common Emergency Awareness Tips IS [...] are strongly encouraged to quit. Please call [facility] Link at [phone] or [phone] [employer] ([phone]) or log in to [email or web address] for referrals to smoking cessation programs. ?? The National Suicide Prevention Hotline is available 24/01 if you or someone you know needs to find areason to keep living. By calling 1-643-194-[employer] (5106) you'll be connected to a skilled, trained counselor at a crisis center in your area. INPATIENT DISCHARGE INSTRUCTIONS SIGNATURE PAGE SHIRAZJOSEA Location:[facility] Registration Date and Time:06/01/2022 00:59 EST Primary Care Physician: Elier RICHARDSON , Caroline Connolly, I KATHARINA WELDON, have received the above patient education materials/instructions and have verbalized understanding. If ambulance or transport services are being used I further acknowledge being givena choice of service. ?? If you need to contact me, please call me at this number: . Patient/Spinning Frame Cleaner Name: Patient/Spinning Frame Cleaner Signature: Relationship to Patient: Witness Name/Signature: Date: Stephanie Pelayo RN: PERFORM Event Display: Patient Education/Instruction Authored Date: [id number] Inpatient Adult Discharge Instructions [address] [address] Name: KATHARINA WELDON : 1985 Visit: 06/01/2022 00:59:00 Current Date: 06/04/2022 18:10 Account: [id number] Inpatient Adult Discharge Instructions We would like [...] and their families. Surveys are administered by [employer] ?? If further treatment with your primary care physician or another doctor is recommended, it is important for you to keep the appointment. Call your primary care physician or return to the Emergency Department immediately if your condition worsens, fails to improve, or new symptoms develop. If you need to find a doctor, you can call [facility] for a referral at [phone] or toll free at [phone] ([phone]) or log in to [email or web address].. ?? You can view and manage your care through the patient portal or by using a health care john of your choosing. [employer] is a website that allows you to securely view your medical information including your hospital discharge summary, office visit summaries, medications and follow-up visits. You can also request appointments, renew medications, and request access to your medical information using a health care john of your choosing, or just ask a question. You can enroll at [email or web address] or register during your next office visit. You have been discharged from [facility], Patient Care Unit: SPK3. If you have any questions regarding these instructions after you leave, please call us and we will be happy to assist you. [facility] Your Care Team Attending Physician Francesco Navarrete MD, Prasanth Consulting Providers Camila RICHARDSON, Debbie Discharging Providers Francesco Navarrete MD, Prasanth Reason for Admission procedure Your Diagnosis sbo Tests Performed Below is a partial list of the tests performed during your hospitalization. You may have had other tests and procedures not included in this list. Please discuss all test results with your provider. Basic Metabolic Panel BUN Calcium Level CBC CBC w/ Differential COMPREHENSIVE METABOLIC PANL COVID-19 (2019 Novel Coronavirus) PCR COVID-19 (Novel Coronavirus), Rapid PCR COVID-19 RNA POC Creatinine GLUCOSE POC HOLD BLUE TUBE HOLD GREEN TUBE HOLD OTHER TUBE LACTIC ACID LIPASE Lytes Magnesium Level Phosphorus Level Serum Quantitative CT Abd/Pelvis W/ IV Contrast Only CXR Portable XR Chest Portable XR Small Bowel Water Soluble Primary Care Provider Elier RICHARDSON , Caroline Connolly Advance Directive Health Care Proxy on File No Patient refuses to discuss No qualifying data available. Discharge Vitals Temperature: 98.5 DegF Height: 163 cm Pulse Rate: 60 bpm Weight: 53.2 kg Respiratory Rate: 16 br/min Body Mass Index: 20.02 kg/m2 Respiratory Rate: 16 br/min Body surface area: 1.55 Systolic Blood Pressure:??151 mm Hg??High ?? Diastolic Blood Pressure:??86 mm Hg??High ?? Oxygen Saturation: 98 % ?? Studies Pending All tests and labs ordered during this hospital stay have been completed unless listed below. Pleasediscuss all pending results with your provider listed above in these instructions. ?? No incomplete studies found What to do next Instructions From Your Doctor Discharge Orders You Need to Schedule the Following Appointments Follow Up with??Caroline Thapa MD When??Within 1 to 2 weeks Where: [address] [place] [phone]- Business (1) Discharge Medications KATHARINA WELDON :1985 Visit Date:06/01/2022 Medications: Please continue your medications until treatment is completed or stopped by your provider. Medications not listed below should be discontinued. Discuss any questions related to medications with your provider. What How Much When Why Instructions Next Dose New Metoclopramide (Reglan 10 mg oral tablet) 1 tab(s) Oral 3 times a day before meals and bedtime Duration: 10 Days Pickup at [facility] New Oxycodone (oxyCODONE 5 mg oral tablet) 0.5 tab(s) Oral 3 times a day as needed for Pain , Moderate Duration: 2 Days Pickup at [facility] Changed Benztropine (benztropine 1 mg oral tablet) 1 tab(s) Oral Twice a day Changed Clonazepam 2 Milligram Oral Daily at Bedtime Unchanged Clonidine (cloNIDine 0.1 mg oral tablet) 1 tab(s) Oral Daily at Bedtime Unchanged Dicyclomine (Bentyl 10 mg oral capsule) 1 capsule Oral 4 times a day Duration: 10 Days Unchanged Duloxetine (duloxetine 60 mg oral enteric coated capsule) 90 Milligram Oral Daily Unchanged Durable Medical Equipment (Catheter Supplies) See instructions Urinary retention Perform straight catheterization as needed up to 7 ??times daily ?? Unchanged Fluoxetine (FLUoxetine 20 mg oral capsule) 1 capsule Oral Daily Unchanged Folic Acid (folic acid 1 mg oral tablet) 1 tab(s) Oral Daily Unchanged Gabapentin (gabapentin 800 mg oral tablet) 1 tab(s) Oral Twice a day 200mg in am; 200mg at noon and 800mg at hs ?? Unchanged Loperamide (loperamide 2 mg oral capsule) 1 capsule Oral Every 4 hours as needed for for loose stool Unchanged Lorazepam (LORazepam 0.5 mg oral tablet) 1 tab(s) Oral Daily at Bedtime as needed for anxiety through 06.02 ?? Unchanged lurasidone (Latuda 80 mg oral tablet) 1 tab(s) Oral Daily at Bedtime with food ?? Unchanged Miscellaneous Rx (LFT in a week, results to PCP) See instructions Lab test to be performed in a week ?? Unchanged Miscellaneous Rx (Serum Magnesium levels in a week) See instructions Lab test to be performed in a week ?? Unchanged Thiamine (Vitamin B1 100 mg oral tablet) 1 tab(s) Oral Daily Duration: 10 Days Unchanged Trazodone (traZODone 100 mg oral tablet) 1 tab(s) Oral Daily at Bedtime Unchanged Zolpidem (Ambien 10 mg oral tablet) 1 tab(s) Oral Daily at Bedtime Pharmacy Information [facility]-[id number]: [address] [place] [id number] [phone] Test Results Below is a partial list of the most recent Laboratory test results done prior to this discharge. You may have had other tests and procedures not included in this list. Please discuss all test results with your provider. Basic Metabolic Panel (06/04/2022) ???Sodium - 138 mmol/L???Potassium - 3.9 mmol/L???Chloride - 104 mmol/L???Bicarbonate Level - 26 mmol/L???Anion Gap - 8???Glucose Level - 80 mg/dL???BUN - 8 mg/dL???Creatinine-Blood - 0.5 mg/dL???Estimated GFR Creatinine - 125 ML/MIN/1.73 M2???Calcium - 8.9 mg/dL BUN (06/01/2022) ???BUN - 9 mg/dL Calcium Level (06/01/2022) ???Calcium - 9.6 mg/dL CBC (06/04/2022) ???WBC - 7.5 k/mm3???RBC - 3.38 m/mm3???Hgb - 9.9 Gm/dL???Hct - 30.0 %???MCV - 88.8 femtoliters???MCH - 29.3 pg???MCHC - 33.0 g/dL???Platelet Count - 177 k/mm3???RDW-SD - 42.5 femtoliters???MPV - 9.8 femtoliters???Nucleated RBC (Automated) - 0.0 #/100 WBC'S???Abs. NRBC - 0.0 k/mm3 CBC w/ Differential (05/31/2022) ???WBC - 10.5 k/mm3???RBC - 3.79 m/mm3???Hgb - 11.4 Gm/dL???Hct - 33.7 %???MCV - 88.9 femtoliters???MCH - 30.1 pg???MCHC - 33.8 g/dL???Platelet Count - 217 k/mm3???RDW-SD - 42.4 femtoliters???MPV - 9.5femtoliters???Nucleated RBC (Automated) - 0.0 #/100 WBC'S???Abs. NRBC - 0.0 k/mm3???Abs. Neut - 6.8 k /mm3???Abs. Lymph - 1.6 k/mm3???Abs. [place] - 0.6 k/mm3???Abs. Eo - 1.4 k/mm3???Abs. Baso - 0.0 k/mm3???Neut % - 64.5 %???Lymph % - 15.7 %???[place] % - 5.4 %???Eos % - 13.7 %???Baso % - 0.4 %???Imm Gran - 0.3 %???Abs. Imm Gran - 0.0 k/mm3 COMPREHENSIVE METABOLIC PANL (05/31/2022) ???Sodium - 138 mmol/L???Potassium - 3.9 mmol/L???Chloride - 98 mmol/L???Bicarbonate Level - 31 mmol/L???Anion Gap - 9???Glucose Level - 121 mg/dL???BUN - 11 mg/dL???Creatinine-Blood - 0.7 mg/dL???Estimated GFR Creatinine - 111 ML/MIN/1.73 M2???Calcium - 10.0 mg/dL???Protein, Total - 7.4 Gm/dL???Albumin - 4.1 Gm/dL???AG Ratio - 1.2???Alkaline Phosphatase - 55 units/L???AST (SGOT) - 31 units/L???ALT (SGPT) - 21 units/L???Bilirubin, Total - 0.3 mg/dL COVID-19 (2019 Novel Coronavirus) PCR (06/03/2022) ???COVID-19 PCR Specimen Source - NASAL???COVID-19 PCR Result - NEGATIVE COVID-19 (Novel Coronavirus), Rapid PCR (05/31/2022) ???COVID-19 by RT-PCR - NEGATIVE COVID-19 RNA POC (05/31/2022) ???COVID-19 POC Result - NEGATIVE Creatinine (06/02/2022) ???Creatinine-Blood - 0.6 mg/dL???Estimated GFR Creatinine - 117 ML/MIN/1.73 M2 GLUCOSE POC (06/03/2022) ???Glucose, POC - 87 mg/dL HOLD BLUE TUBE (05/31/2022) ???Hold Blue Top - SPECIMEN DISCARDED AFTER 4 HOURS. HOLD GREEN TUBE (05/31/2022) ???Hold Green Top - SPECIMEN DISCARDED AFTER 1 WEEK HOLD OTHER TUBE (05/31/2022) ???Hold Other - SPECIMEN DISCARDED AFTER 1 WEEK LACTIC ACID (05/31/2022) ???Lactate - 1.4 mmol/L LIPASE (05/31/2022) ???Lipase - 19 units/L Lytes (06/02/2022) ???Sodium - 140 mmol/L???Potassium - 4.0 mmol/L???Chloride - 104 mmol/L???Bicarbonate Level - 28 mmol/L???Anion Gap - 8 Magnesium Level (06/04/2022) ???Magnesium - 1.7 mg/dL Phosphorus Level (06/04/2022) ???Phosphorus - 3.0 mg/dL Serum Quantitative (05/31/2022) ? ?Blood - <1 mIU/mL Allergies (NKA means No Known Allergies) Buspar??(rash) [...] Belongings I fully understand and agree that [facility] accepts no responsibility for all my personal [...] encouraged to send valuables and belongings home. ?? Safe envelope number: [phone], [phone] Disposition of Belongings: Other: Meds locked in Spoke 4 Pyxis Date for Pt to Sign Valuables/Belongings: 06/01/22 04:44:00 ?? Other Discharge Information ? Pulmonary Rehab Status?? Pulmonary Rehab Discharge Status?? Respiratory Rate: 16 br/min Respiratory Rate: 16 br/min ? Common Emergency [...] are strongly encouraged to quit. Please call [employer] at [phone] or [phone] ([phone]) or log in to [email or web address] for referrals to smoking cessation programs. ?? The National Suicide Prevention Hotline is available 24/01 if you or someone you know needs to find areason to keep living. By calling 0-156-150-zxlj (7380) you'll be connected to a skilled, trained counselor at a crisis center in your area. INPATIENT DISCHARGE INSTRUCTIONS SIGNATURE PAGE KATHARINA WELDON Location:[facility] Registration Date and Time:06/01/2022 00:59 EST Primary Care Physician: Elier RICHARDSON , Caroline Connolly, I KATHARINA WELDON, have received the above patient education materials/instructions and have verbalized understanding. If ambulance or transport services are being used I further acknowledge being givena choice of service. ?? If you need to contact me, please call me at this number: . Patient/Spinning Frame Cleaner Name: Patient/Spinning Frame Cleaner Signature: Relationship to Patient: Witness Name/Signature: Date: Prasanth Celaya MD: PERFORM, SIGN, VERIFY Event Display: Patient Education Handout Authored Date: [id number] Stephanie Pelayo RN: PERFORM Event Display: Patient Education Leaflets Authored Date: [id number] Small Bowel Obstruction ?? 87948 Small Bowel Obstruction A??small bowel obstruction??occurs when [...] stool) ?? Last Reviewed Date: 2021 ?? [employer]. All rights reserved. This information is not intended as a substitute for professional medical care. Always follow your healthcare professional's instructions. ??Prasanth Celaya MD: PERFORM Event Display: Patient Education Leaflets Authored Date: [id number] Small Bowel Obstruction ?? 34314 Small Bowel Obstruction A??small bowel obstruction??occurs when [...] stool) ?? Last Reviewed Date: 2021 ?? [id number] [employer]. All rights reserved. This information is not intended as a substitute for professional medical care. Always follow your healthcare professional's instructions. ??ALEXIS Duron S: TRANSCRIPrem Webb MD: VERIFY Event Display: Result: Authored Date: [id number] 2 views of abdomen obtained. There does appear to be contrast within small bowel loops in the mid todistal small bowel. No definite contrast identified within the colon. Dense contrast seen within the stomach. No free air. IMPRESSION: Contrast seen throughout likely most of small bowel. No definite contrast seen within the colon. Consider continued follow-up. WSN: [id number] Ordering Physician: Kendra Wu Dictated By: Prem Cardenas MD Dictated Date/Time: 06/02/22 7:17 pm Reviewed By: Prem Cardenas MD Signed By: Prem Cardenas MD Signed Date/Time: 06/02/22 7:17 pm Transcribed By: TONE Transcribed Date/Time: 06/02/22 7:15 pm Portable XR Chest Views ALEXIS Duron S: TRANSCRIMaximo Ruiz MD: VERIFY Isaac Carrasquillo MD: SIGN Event Display: Result: Authored Date: [id number] Chest Portable INDICATION: Line placement. COMPARISON: Yesterday. FINDINGS: Enteric tube with tip at the level of the diaphragm/GE junction. Side port at the mid to distal esophagus. Interval retraction since the previous exam Diffuse gaseous distention of the visualized loops of bowel. No acute cardiopulmonary process. IMPRESSION: Enteric tube with tip at the level of the diaphragm/GE junction. Consider advancement for optimal placement. A critical result message ([place]) has been communicated via the [employer] system on 06/02/2022 10:44 AM, Message ID [id number]. I have personally reviewed the images and I agree with this report. WSN: [id number] Ordering Physician: Prasanth Celaya Dictated By: Isaac Carrasquillo MD Dictated Date/Time: 06/02/22 10:44 a Reviewed By: Maximo Argueta MD Signed By: Maximo Argueta MD Signed Date/Time: 06/02/22 10:49 am Transcribed By: TONE Transcribed Date/Time: 06/02/22 10:39 ALEXIS Pierson S: TRANSCRIBE Liborio Ponce MD: VERIFY Event Display: Result: Authored Date: [id number] Chest Portable Reason: Line Placement; Clinical Question(s): Line Placement COMPARISON: 01/12/2021 FINDINGS: 2. The repeat images were obtained. LINES AND TUBES: Enterogastric tube tip and side-port project beneath the left hemidiaphragm in the stomach on the first image. On the second image, the tube has been retracted slightly with the side-port at the GE junction. LUNGS AND PLEURA: Low lung volumes due to gaseous distention and elevated diaphragm. The lungs are otherwise clear . No pleural effusion. No pneumothorax. HEART, MEDIASTINUM AND EMILIE: Heart is normal in size. Normal mediastinal and hilar contour. BONES AND SOFT TISSUES: No osseous abnormality. Gas-distended upper abdominal bowel loops. IMPRESSION: On the first image of the exam, the enterogastric tube is well positioned however on the second final image, the tube has been retracted slightly with the side-port at the GE junction. Recommend advancing the tube another 5 cm. Clear lungs. WSN: [id number] Ordering Physician: Meng Saez Dictated By: Liborio Ponce MD Dictated Date/Time: 06/01/22 8:21 am Reviewed By: Liborio Ponce MD Signed By: Liborio Ponce MD Signed Date/Time: 06/01/22 8:21 am Transcribed By: TONE Transcribed Date/Time: 06/01/22 8:17 ALEXIS Pierson S: TRANSCRIBE Liborio Hardy MD: VERIFY Event Display: Result: Authored Date: [id number] Chest Portable REASON: Tube Placement; Clinical Question(s): Tube Placement / Tube Placement COMPARISON: Earlier today FINDINGS: LINES AND TUBES: Enteric tube has been retracted, with the tip now projecting in the esophagus just below the eliazar and the side port at the level of the clavicular heads. LUNGS AND PLEURA: Clear lungs. Normal pulmonary vascularity. No pleural effusion. No pneumothorax. HEART, MEDIASTINUM AND EMILIE: Heart is normal in size. Normal mediastinal and hilar contour. BONES AND SOFT TISSUES: Multiple dilated gas-filled loops of small bowel again seen. IMPRESSION: Enteric tube in the esophagus, recommend repositioning. WSN: [id number] Ordering Physician: Twan De La Rosa Dictated By: Liborio Hardy MD Dictated Date/Time: 06/01/22 9:12 am Reviewed By: Liborio Hardy MD Signed By: Liborio Hardy MD Signed Date/Time: 06/01/22 9:12 am Transcribed By: TONE Transcribed Date/Time: 06/01/22 9:08 amBHSPowerscribe , CIS S: TRANSCRIBE Isaac Carrasquillo MD: SIGN Juno Morrow MD, V: VERIFY Event Display: Result: Authored Date: [id number] Chest Portable performed AP sitting at 5:30 AM INDICATION: Tube placement. COMPARISON: 06/01/2022 at 4:56 AM. FINDINGS: LINES AND TUBES: The previously seen enteric tube has been advanced since prior. The tip is in the stomach and the side-port is at the level of the diaphragm. LUNGS AND PLEURA: Clear lungs. Normal pulmonary vascularity. No pleural effusion. No pneumothorax. HEART, MEDIASTINUM AND EMILIE: Heart is normal in size. Normal mediastinal and hilar contour. BONES AND SOFT TISSUES: Diffuse gaseous distention of the visualized loops of bowel. IMPRESSION: Enteric tube has been advanced since prior with the tip now in the stomach. However, the side port is at the level of the diaphragm. Consider slight advancement for optimal placement. Diffuse gaseous distention of the visualized loops of bowel. I have personally reviewed the images and I agree with this report. 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 Patient unable to tolerate PO contrast. TECHNIQUE: Spiral CT through the abdomen and pelvis with IV contrast formatted in 3 planes. 75 cc ofOmnipaque 300 was administered intravenously. This study was performed without oral contrast. Weight-based protocol using automatic tube modulation was used to optimize exposure parameters. CTDIvol Body: 8.85 mGy, DLP Body: 451 mGy*cm. COMPARISON: CT 05/16/2022 FINDINGS: Home [employer] Disclosure Act Specialist View Findings, Lines and Tubes: None. Visualized Chest: Lung bases are clear. No pleural effusion. The heart is normal in size. No pericardial effusion. Fluid-filled distal esophagus. Mild pectus excavatum deformity (Pierce index 3.0). Diaphragm: Normal. Liver: Normal. Gallbladder: No CT evidence of gallbladder pathology. Bile ducts: No biliary ductal dilation. Spleen: Normal. Pancreas: Normal. Adrenal glands: Normal. Kidneys and ureters: No hydronephrosis, stones, or suspicious masses. Bladder: Bladder is moderately distended but otherwise normal. Reproductive organs: Unremarkable. Stomach, small bowel, and large bowel: The stomach is over distended and filled with ingested contents. The proximal jejunal loops are normal in caliber and are located in the right hemiabdomen. The remaining of the small bowel is diffusely distended, measuring up to 6.2 cm distally (coronal 51). There is a transition point just adjacent to the ileostomy (axial 91). Fecalized contents in the distal small bowel. No bowel wall thickening or pneumatosis. Status post total colectomy. Katt's pouch isunremarkable. Appendix: Surgically absent. Peritoneum and retroperitoneum: Small amount of free fluid in the cul-de-sac. No pneumoperitoneum. No omental or mesenteric lesions. Lymph nodes: Prominent but nonenlarged mesenteric lymph nodes, likely reactive. Mild mesenteric edema in the left upper quadrant (axial image 87). Blood vessels: Normal. No aneurysm. No evidence of venous thrombosis. Abdominal and pelvic wall: Unremarkable. Bones: No acute abnormality. IMPRESSION: Small bowel obstruction with a transition point just upstream to the ileostomy. No evidence of bowelischemia or perforation. Significant distention of the stomach with enteric contents, slightly more than the prior exam, though no definite evidence of gastric outlet obstruction. Findings in agreement with preliminary report provided by [facility] . I have personally reviewed the images and I agree with this report. WSN: [id number] Ordering Physician: Meng Saez Dictated By: Pratik Garcia MD Dictated Date/Time: 06/01/22 8:57 am Reviewed By: Neel Mckinnon MD Signed By: Neel Mckinnon MD Signed Date/Time: 06/01/22 9:02 am Transcribed By: TONE Transcribed Date/Time: 06/01/22 8:41 am Patient Care team information Care Team PersonnelName: Mayelin Hyde RN Position: [facility] PCO RN Member Role: Primary Care Nurse Name: Tatum Fan RN Position: [facility] RN Member Role: Primary Care Nurse Name: Tomer Rodriguez RN Position: [facility] RN Member Role: Primary Care Nurse Name: Linda Coats RN Position: [facility] RN Member Role: Primary Care Nurse Name: Chance Velásquez RN Position: [facility] RN Member Role: Primary Care Nurse Name: Caroline Thapa MD Position: [facility] Outreach Member Role: PCP Address: Address: [address] [place] [address] Name: Karyna Morin RN Position: [facility] SWATHI Nurse Member Role: Primary Care Nurse Name: Tavo SARABIA Attending Position: [facility] ED Medicine Name: Kiera Pollock RN Position: [facility] ED RN W/OE and Tasks Member Role: Patient Care Provider Care Team Related PersonsName: YUNIOR RAPHAEL Address: home [address] [place] [id number] Name: YUNIOR HALL Address: [address] [place] [address] Name: BLADIMIR WELDON Address: [address] [place] [address] Name: ANNITA PALOMARES Address: [address] [place] [address] Name: ANNITA YATES Address: [address] [place] [address]
--- OUTSIDE RECORDS SUMMARY | 2022-06-21 15:52 | XMS_ITS | Continuity of Care Document ---
:1985 Author Organization [facility] Address [address] [place] [address] Drive [address] [place] [address]- Care Team Providers Name Role Phone Elier RICHARDSON, Caroline Connolly Primary Care Physician Encounter [facility] [place] Date(s): 06/10/20 - 06/17/[address] [place] [id number] Attending Physician: Pramod RICHARDSON, Allison Frazier Referring Physician: Caroline Thapa MD Allergies, Adverse [...] Start Date: 02/10/18 Status: Orderedbrava bararier seals [id number] brava bararier seals [id number], See Instructions, # 20 units, Refills 11, Tot. Refills 11, Maintenance,use as needed for ostomy care. Dx. ileostomy, 03/19/19 11:54:35 EDT, Compound Start Date: 03/19/19 Status: OrderedClonazepam = 2 mg, By Mouth, Daily at bedtime, 0 Refills, Maintenance, 02/10/18 8:43:20 EDT Start Date: 02/10/18 Status: Orderedcoloplast 39803 coloplast 89492, See Instructions, # 20 each, Refills 11, Tot. Refills 11, Maintenance, use as needed for ostomy care Dx. ileostomy, 03/19/19 11:53:12 EDT, Compound Start Date: 03/19/19 Status: Orderedcoloplast 87955 coloplast 65118, See Instructions, # 20 each, Refills 11, [...] 06/04/20 16:00:00 EST, Route to Pharmacy Electronically, [facility]... Start Date: 06/04/20 Stop Date: [...] Most recent to oldest [Reference Range]: 1 Pulse Rate [55-90 bpm] 103 bpm *H* (06/10/20 10:45 AM) Blood Pressure [90-138/55-84 mm Hg] 130/89 mm Hg (06/10/20 10:45 AM) Temperature [96.8-100.4 DegF] 97.6 DegF (06/10/20 10:45 AM) Blood pressure sites Arm, left (06/10/20 10:45 AM) Temperature Route Temporal (06/10/20 10:45 AM) Social History Social History Type Response Tobacco Use: 4 or less cigarettes(le ss than 1/4 pack)/day in last 30 days. Sex
--- OUTSIDE RECORDS SUMMARY | 2022-06-21 15:52 | XMS_ITS | Continuity of Care Document ---
:1985 Author Organization [facility] Address [address] [place] [address] [place] [address]- Care Team Providers Name Role Phone Caroline Thapa MD Primary Care Physician Encounter [facility] [place] Date(s): 11/17/20 - 12/17/[address] [place] [address]- Allergies, Adverse Reactions, Alerts Substance Reaction Severity [...] tablet, 0 Refills, Acute, 07/31/20 8:52:00 EST, [facility] #[id number], 163, cm, 07/08/20 13:37:00 EST, Height, 50, kg, 05/08/20 13:34:00 EST, Dry Weight Start Date: 07/31/20 Status: Orderedbethanechol 25 mg oral tablet 25 mg, 1, tablet, By Mouth, 3 times a day, for 30 days, # 90 tablet, Refills 4, Tot. Refills 4, Acute 02/13/21 14:38:00 EDT, 09/16/20 14:38:00 EDT, Route to Pharmacy Electronically, [facility][id number], Partial fill upon patient request if the... Start Date: 09/16/20 Stop Date: 02/13/21 Status: Orderedbrava bararier seals [id number] brava bararier seals [id number], See Instructions, # 20 units, Refills 11, Tot. Refills 11, Maintenance,use as needed for ostomy care. Dx. ileostomy, 03/19/19 11:54:35 EDT, Compound Start Date: 03/19/19 Status: OrderedClonazepam = 2 mg, By Mouth, Daily at bedtime, 0 Refills, Maintenance, 02/10/18 8:43:20 EDT Start Date: 02/10/18 Status: Orderedcoloplast 74814 coloplast 20305, See Instructions, # 20 each, Refills 11, Tot. Refills 11, Maintenance, use as needed for ostomy care Dx. ileostomy, 03/19/19 11:53:12 EDT, Compound Start Date: 03/19/19 Status: Orderedcoloplast 62148 coloplast 78247, See Instructions, # 20 each, Refills 11, [...] tablet, 6 Refills, Maintenance, 11/17/20 12:53:00 EDT, [facility] #[id number], Partial fill upon patientrequest if the prescription [...]
--- OUTSIDE RECORDS SUMMARY | 2022-06-21 15:52 | XMS_ITS | Continuity of Care Document ---
:1985 Author Organization [facility] Address [address] [place] [address] Drive [address] [place] [address]- Care Team Providers Name Role Phone Elier RICHARDSON, Caroline Connolly Primary Care Physician Encounter [facility] Date(s): 05/15/20 - 06/14/[address] [place] [address]- Allergies, Adverse Reactions, Alerts Substance Reaction Severity [...] Start Date: 02/10/18 Status: Orderedbrava bararier seals [id number] brava bararier seals [id number], See Instructions, # 20 units, Refills 11, Tot. Refills 11, Maintenance,use as needed for ostomy care. Dx. ileostomy, 03/19/19 11:54:35 EDT, Compound Start Date: 03/19/19 Status: OrderedClonazepam = 2 mg, By Mouth, Daily at bedtime, 0 Refills, Maintenance, 02/10/18 8:43:20 EDT Start Date: 02/10/18 Status: Orderedcoloplast 47468 coloplast 94822, See Instructions, # 20 each, Refills 11, Tot. Refills 11, Maintenance, use as needed for ostomy care Dx. ileostomy, 03/19/19 11:53:12 EDT, Compound Start Date: 03/19/19 Status: Orderedcoloplast 03698 coloplast 42093, See Instructions, # 20 each, Refills 11, [...] 06/04/20 16:00:00 EST, Route to Pharmacy Electronically, [facility]... Start Date: 06/04/20 Stop [...]
--- OUTSIDE RECORDS SUMMARY | 2022-06-21 15:52 | XMS_ITS | Continuity of Care Document ---
:1985 Author Organization [facility] [employer] Address [address] [place] [address], [address] [place] [address]- Care Team Providers Name Role Phone Caroline Thapa MD Primary Care Physician Encounter [facility] R [id number] Date(s): 02/15/20 - 03/19/20 [facility] [employer] [address] [place] [address], [address] [place] [address] [facility] Attending Physician: Not on Staff, Attending MD Referring Physician: Caroline Thapa MD Allergies, [...] 05/08/20 14:54:00 EST, 12/10/19 14:54:00 EDT, Tablet, [facility] #[id number], 165, cm, 12/04/19 10:31:00 EDT, Height, 55.1, kg, 11/17/19 3:58:00 EDT, Dry Weight Start Date: 12/10/19 Stop Date: 05/08/20 Status: Orderedbrava bararier seals [id number] brava bararier seals [id number], See Instructions, # 20 units, Refills 11, Tot. Refills 11, Maintenance,use as needed for ostomy care. Dx. ileostomy, 03/19/19 11:54:35 EDT, Compound Start Date: 03/19/19 Status: OrderedClonazepam = 2 mg, By Mouth, Daily at bedtime, 0 Refills, Maintenance, 02/10/18 8:43:20 EDT Start Date: 02/10/18 Status: Orderedcoloplast 40543 coloplast 22190, See Instructions, # 20 each, Refills 11, Tot. Refills 11, Maintenance, use as needed for ostomy care Dx. ileostomy, 03/19/19 11:53:12 EDT, Compound Start Date: 03/19/19 Status: Orderedcoloplast 77520 coloplast 72719, See Instructions, # 20 each, Refills 11, [...]
--- OUTSIDE RECORDS SUMMARY | 2022-06-21 15:52 | XMS_ITS | Continuity of Care Document ---
:1985 Author Organization [facility] Address [address] [place] [address] [address] [place] [address]- Care Team Providers Name Role Phone Elier RICHARDSON, Caroline Connolly Primary Care Physician [place] [facility] [facility] [place] [id number] Date(s): 03/19/22 - 04/18/[address] [place], [place] [address] Allergies, Adverse Reactions, Alerts Substance Reaction Severity Status sulfa drugs hives Active Topamax Active Buspar1 rash Active Geodon [...] tablet, 6 Refills, Maintenance, 05/12/21 15:32:00 EST, [facility] #[id number], Partial fill upon patient request if the [...] 1/4 pack)/day in last 30 days. Sex Patient Care team information PersonnelName: Elier RICHARDSON , Caroline Connolly Address: Address: [address] [place] [address]
[2022-06-21] MEDS: predniSONE 20 MG TABLET 60 MG PO (16:22)
[2022-06-21] MEDS: diphenhydrAMINE HCL 50 MG/ML VIAL 25 MG IVPUSH (16:23)
[2022-06-21 16:29] VITALS: BP 151/74; PULSE 100; RESP 18; TEMP 36.2; O2SAT 97
--- NOTE | 2022-06-21 16:29 | MHC.EDTECH ---
this pct escort and stayed with pt in bathroom while pt change her colostamy bag and straight cath herself .
--- NOTE | 2022-06-21 16:36 | ECG_ITS ---
Test Reason : ETOH/SUBSTANCE Blood Pressure : / mmHG Vent. Rate : 091 BPM Atrial Rate : 091 BPM P-R Int : 134 ms QRS Dur : 100 ms QT Int : 382 ms P-R-T Axes : 070 058 -04 degrees QTc Int : 469 ms Normal sinus rhythm Possible Left atrial enlargement Incomplete right bundle branch block T wave abnormality, consider inferior ischemia Abnormal ECG When compared with ECG of 21-SEP-2021 16:58, Vent. rate has increased BY 40 BPM T wave inversion now evident in Inferior leads Referred By: Dennis Zepeda Electronically Signed By:Silvio Lentz
--- NOTE | 2022-06-21 16:36 | PC.NURSE ---
patient a/ox4 . hakeem . heart rate regular at 1000 beats per minute . breathing even and unlabored , lungs clear throughout . skin pink warm and dry . abdomen soft . patient has colostomy on right side of abdomen , that she changes self .has supplies brought in by father . patient comes in for over dose . patient has been changed into hospital attire . patient has been medicated with 25 mg of Benadryl and 60 mg of predinosone for itching all over her body r/t overdose . patient plan of care is for her to work with care team to plan for discharge to detox . patient aware of plan of care .
--- NOTE | 2022-06-21 16:53 | HO.SUDE ---
CARE team met with pt to offer a substance use disorder evaluation. Pt is a 36 year old female who is known to the CARE team and Recovery team from previous ED visits related to mental health and substance use disorders. Pt arrived to the ED via ambulance from home following an accidental opiate and crack cocaine overdose and narcan was administered by her father, who discovered her unresponsive. Pt expressed interest in detox with terminal makeup operator goal of CSS/TSS. Pt shared that she completed detox at [facility] and transitioned to [facility], where she was for nearly 3 months awaiting a TSS bed, however on 06/09/22 she was transferred to a hospital due to a small bowel obstruction and required surgery. She was discharged from the hospital approximately one week ago and has been using crack cocaine and heroin almost nonstop for the past 5 days. Today, prior to being brought to the hospital, she reported that she was smoking crack cocaine and snorted a line of heroin. Pt was tearful and reported that she is disappointed in herself and feels remorseful for what she put her father through. She stated I don't want to be alive anymore, I'm not suicidal, I just can't do this and I need help, I don't know what to do, I need to go back to detox. Pt is requesting to go back to [facility]. Labs are pending. Pt will be referred to [facility] once she is medically cleared for placement.
[2022-06-21 17:31] LABS: Basophils Percent Auto 0.3 % (0-2); Eosinophils Absolute Auto 0.1 X10*3/uL (0.0-0.4); Eosinophils Percent Auto 1.3 % (0-4); Hematocrit 32.6 % (37.0-47.0); Hemoglobin 10.8 g/dl (12.0-16.0); Imm Gran Abs Auto 0.01 X10*3/uL (0.00-0.03); Imm Gran Pct Auto 0.2 % (0.0-0.4); Lymphocytes Absolute Auto 1.5 X10*3/uL (1.2-4.9); Lymphocytes Percent Auto 24.5 % (20-40); MANUAL DIFF FLAG NO; Mean Corpuscular HGB Conc 33.1 g/dl (31.0-35.0); Mean Corpuscular Hemoglobin 29.8 pg (27.0-33.0); Mean Corpuscular Volume 90.1 fL (80.0-98.0); Mean Platelet Volume 9.1 fL (9.4-12.3); Monocytes Absolute Auto 0.9 X10*3/uL (0.1-1.2); Monocytes Percent Auto 14.4 % (2-11); Neutrophils Absolute Auto 3.5 x10*3/uL (2.0-8.3); Neutrophils Percent Auto 59.3 % (45-73); Platelet Count 241 X10*3/uL (160-400); Red Blood Count 3.62 X10*6/uL (4.20-5.50); Red Cell Distribution Width 13.5 % (11.0-16.0)
[2022-06-21] MEDS: LORazepam 1 MG TABLET PO (17:56)
[2022-06-21 18:00] VITALS: BP 112/68; PULSE 96; RESP 16; TEMP 36.6; O2SAT 98
--- NOTE | 2022-06-21 18:17 | ED.GENADULT ---
HPI - General Adult General Chief complaint: ETOH/Substance Use Stated complaint: Overdose Time Seen by Provider: 06/21/22 14:52 Source: patient Mode of arrival: ambulatory Limitations: no limitations History of Present Illness HPI narrative: 36-year-old female brought to the ED for accidental overdose on heroin. Patient usually smokes crack cocaine but tried heroin. Mother states performed CPR when he found her unresponsive did not give her Narcan the patient was more immediately. Father does not know if patient had a pulse or not but just started CPR. Patient presently is asymptomatic and main concern is just wanting to be placed in detox. Father agree with plan for Care team evaluation for detox Related Data Home Medications Medication Instructions Recorded Confirmed clonazepam 2 mg tablet 1 tab PO QPM 01/19/22 06/21/22 clonidine HCl 0.1 mg tablet 1 tab PO TID PRN Anxiety 01/19/22 06/21/22 fluoxetine 20 mg capsule 1 cap PO DAILY 01/19/22 06/21/22 gabapentin 800 mg tablet 1 tab PO BID 01/19/22 06/21/22 benztropine 1 mg tablet 1 tab PO BID 06/21/22 06/21/22 lurasidone 80 mg tablet (Latuda) 1 tab PO QPM 06/21/22 06/21/22 metoclopramide HCl 10 mg tablet 1 tab PO TID 06/21/22 06/21/22 trazodone 100 mg tablet 1 tab PO BEDTIME 06/21/22 06/21/22 zolpidem 10 mg tablet 1 tab PO BEDTIME 06/21/22 06/21/22 Allergies Allergy/AdvReac Type Severity Reaction Status Date / Time buspirone [From BuSpar] Allergy Swelling Verified 07/23/21 19:02 chlorpromazine Allergy Anaphylaxis Verified 07/23/21 19:02 [From Thorazine] lamotrigine [From Lamictal] Allergy Rash Verified 07/23/21 19:02 Sulfa (Sulfonamide Allergy Rash Verified 07/23/21 19:02 Antibiotics) linaclotide [From Linzess] AdvReac Abdominal Verified 07/23/21 19:02 Pain quetiapine [From Seroquel] AdvReac bad side Verified 07/23/21 19:02 effects' topiramate AdvReac Fogginess Verified 07/23/21 19:02 ziprasidone [From Geodon] AdvReac psychosis Verified 07/23/21 19:02 Review of Systems Review of Systems: accidental overdose on heroine Yes all other systems are reviewed and are negative [facility] Past Medical History Medical History (Updated 06/21/22 @ 18:52 by YISEL Pagan) Anorexia Chronic constipation 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 Primary fibromyalgia syndrome Self-catheterizes urinary bladder Surgical History Hx of total colectomy Social History Social History Household Members: Significant Other Housing: House Do you presently have visiting nurse or other home services: No Alcohol intake: former Patient Tobacco Use Status: Never used Tobacco Tobacco use type: Cigarette Cigarettes Per Day: 1 Years Smoked: Started age 17 Smoked in Last 30 Days: No e-Cigarette/Vaping Use: Never Used Second Hand Smoke Exposure: No Substance Use Type: Crack/Cocaine Advance Directives: Yes Advance Directives on File: Yes Advance Directives Date on File: 10/09/21 Patient : No service: No Current occupational status: unemployed Sexual orientation: Straight/Heterosexual Physical Exam ED Vital Signs: Vital Signs - 24 hr 06/21/22 18:00 06/21/22 20:00 06/21/22 22:04 Temperature 97.8 F 97.0 F 97.2 F Pulse Rate 96 79 78 Respiratory Rate 16 16 16 Blood Pressure 112/68 110/76 114/87 Pulse Oximetry 98 98 98 Oxygen Delivery Method Room Air Room Air Room Air 06/22/22 02:00 06/22/22 06:24 06/22/22 08:19 Temperature 97.6 F 98.3 F 98.9 F Pulse Rate 78 72 78 Respiratory Rate 12 12 16 Blood Pressure 105/58 L 106/54 L 105/44 L Pulse Oximetry 97 96 95 Oxygen Delivery Method Room Air Room Air Room Air 06/22/22 10:49 Temperature Pulse Rate 74 Respiratory Rate 18 Blood Pressure 92/54 L Pulse Oximetry 96 Oxygen Delivery Method Room Air BMI result Body Mass Index 20.5 Const General: cooperative, healthy appearing, comfortable, no acute distress, well developed, alert and awake Orientation/consciousness: oriented to time and patient oriented x3 HENMT Head: Yes normal to inspection, Yes No palpable skull fracture present, Yes normocephalic, Yes atraumatic and No abrasion Eyes General: appearance normal, both eyes and all related structures Neck Neck: Yes normal visual inspection, Yes full ROM, Yes no lymphadenopathy, Yes no meningeal signs, Yes trachea midline, Yes supple, No anterior neck swelling and No tender Chest Chest palpation & inspection: normal inspection of the chest and normal palpation of entire chest wall Resp Effort & Inspection: normal respiratory effort and able to speak in complete sentences Cardio Jugular venous distension: no JVD Heart sounds: S1 normal heart sound present and S2 normal heart sound present GI Inspection: Yes normal to inspection and No abdominal wall ecchymosis Palpation (GI): Soft to palpation, not firm, nontender and no guarding General: No CVA tenderness and Yes no CVA tenderness Back/Spine/Pelvis Back: no CVA tenderness, No CVA tenderness and No back tenderness Skin General skin exam: no rashes or lesions noted and elasticity normal Neuro General: oriented to time, patient oriented x3, gait normal, tone normal, moves all extremities, no meningeal signs and CN's II-XI intact bilaterally Cranial nerves: Yes CN's II-XII intact bilaterally Extrem General: Yes normal to inspection and Yes full ROM Psych Appearance: grossly normal, well kempt and not disheveled Course Course Course Narrative: Care team consulted Janette recommend patient get a medical evaluation such as labs and EKG as recommended by detox program. EKG shows new inverted T-wave inversion in inferior leads due to this will do troponin due to patient history of crack cocaine use. Basic labs ordered also. Reevaluation(s) Reevaluation #1: EKG Normal sinus rhyth,. VEnt rate 91. NE interval. QRS 100. QTC 469. Negative STEMI. EKG shows new T-wave inversion in inferior leads ( leads III and AVF). Bundle branch block is old. Will order troponins. Patient denies any chest pain or SOB. Case signed out to Shiva. He will follow troponin Time: 18:49 Reevaluation #2: Patient seen by motor coach supervisor Caroline. Patient will be going to [place] detox program. Patient well-appearing patient to be discharged Time: 13:19 Medications Administered Discontinued Medications Generic Name Dose Route Start Last Admin Trade Name Freq PRN Reason Stop Dose Admin Benztropine Mesylate 1 mg 06/22/22 09:00 06/22/22 11:20 Benztropine Mesylate 1 Mg Tablet PO Not Given BID AMELIA Diphenhydramine HCl 25 mg 06/21/22 15:37 06/21/22 16:23 Diphenhydramine Hcl 50 Mg/Ml Vial IVPUSH 06/21/22 15:38 25 mg ONCE ONE Administration Fluoxetine HCl 20 mg 06/22/22 09:00 06/22/22 11:21 Fluoxetine Hcl 20 Mg Capsule PO Not Given DAILY AMELIA Gabapentin 800 mg 06/22/22 09:00 06/22/22 11:21 Gabapentin 400 Mg Capsule PO Not Given BID AMELIA Sodium Chloride 1,000 mls @ 999 mls/hr 06/21/22 17:40 06/21/22 17:57 Ns IV 06/21/22 18:40 Not Given .Q1H1M STA Lorazepam 1 mg 06/21/22 17:44 06/21/22 17:56 Lorazepam 1 Mg Tablet PO 06/21/22 17:45 1 mg ONCE ONE Administration Metoclopramide HCl 10 mg 06/22/22 09:00 06/22/22 11:21 Metoclopramide Hcl 10 Mg Tablet PO Not Given TID AMELIA Prednisone 60 mg 06/21/22 15:37 06/21/22 16:22 Prednisone 20 Mg Tablet PO 06/21/22 15:38 60 mg ONCE ONE Administration Trazodone HCl 100 mg 06/22/22 02:30 06/22/22 02:41 Trazodone Hcl 100 Mg Tablet PO 100 mg BEDTIME AMELIA Administration Zolpidem Tartrate 10 mg 06/22/22 02:30 06/22/22 02:37 Zolpidem Tartrate 5 Mg Tablet PO 10 mg BEDTIME AMELIA Administration Medical Decision Making Lab Data Result Diagrams: 06/21/22 17:27 06/21/22 17:27 Labs: Lab Results 06/21/22 06/21/22 06/21/22 Range/Units 09:30 17:27 17:27 WBC 6.0 (4.8-10.8) X10*3/uL RBC 3.62 L (4.20-5.50) X10*6/uL Hgb 10.8 L (12.0-16.0) g/dl Hct 32.6 L (37.0-47.0) % MCV 90.1 (80.0-98.0) fL MCH 29.8 (27.0-33.0) pg MCHC 33.1 (31.0-35.0) g/dl RDW 13.5 (11.0-16.0) % Plt Count 241 (160-400) X10*3/uL MPV 9.1 L (9.4-12.3) fL Immature Gran % (Auto) 0.2 (0.0-0.4) % Neut % (Auto) 59.3 (45-73) % Lymph % (Auto) 24.5 (20-40) % [place] % (Auto) 14.4 H (2-11) % Eos % (Auto) 1.3 (0-4) % Baso % (Auto) 0.3 (0-2) % Lymph # (Auto) 1.5 (1.2-4.9) X10*3/uL [place] # (Auto) 0.9 (0.1-1.2) X10*3/uL Eos # (Auto) 0.1 (0.0-0.4) X10*3/uL Baso # (Auto) 0.0 (0.0-0.2) X10*3/uL Abs Immat Gran (auto) 0.01 (0.00-0.03) X10*3/uL Absolute Neuts (auto) 3.5 (2.0-8.3) x10*3/uL Absolute Nucleated RBC 0.000 (0.0-0.012) X10*3/uL Nucleated RBC % (auto) 0.0 (0.0-0.2) /100WBC Sodium 136 (135-145) mmol/L Potassium 3.8 (3.3-5.1) mmol/L Chloride 96 (96-108) mmol/L Carbon Dioxide 25 (22-29) mmol/L Anion Gap 19 (12-20) BUN 10 (9-16) mg/dL Creatinine 0.69 (0.5-1.4) mg/dL Estim Creat Clear Calc 96.8 Estimated GFR > 60 Random Glucose 63 (60-115) mg/dL Calcium 9.7 D (8.4-10.2) mg/dL Total Bilirubin 0.8 (0.0-1.0) mg/dL AST 323 H (5-31) U/L ALT 94 H (0-31) U/L Alkaline Phosphatase 52 D (39-117) U/L Troponin I High Sens (<3.5-17.0) ng/L Total Protein 6.8 (6.5-8.0) g/dL Albumin 4.2 (3.5-5.0) g/dL Urine Color Urine Appearance Urine pH (5.0-9.0) Ur Specific [place] (1.005-1.025) Urine Protein (Neg-Trace) mg/dL Urine Glucose (UA) (Negative) mg/dL Urine Ketones (Negative) mg/dL Urine Blood (Negative) Urine Nitrite (Negative) Ur Leukocyte Esterase (Negative) Urine RBC (0-2) /HPF Urine WBC (0-5) /HPF Ur Squamous Epith Cells (0-2) /HPF Urine Bacteria (None Seen) Hyaline Casts (0-2) /LPF Urine Opiates Screen (Not Detect) Urine Fentanyl Screen (Not Detect) Ur Barbiturates Screen (Not Detect) Ur Phencyclidine Scrn (Not Detect) Ur Amphetamines Screen (Not Detect) U Benzodiazepines Scrn (Not Detect) Urine Cocaine Screen (Not Detect) U Marijuana (THC) Screen (Not Detect) Ethyl Alcohol < 10 mg/dL COVID-19 (MESHA) Negative (Negative) COVID-19 Clin Com See Note 06/21/22 06/21/22 06/21/22 Range/Units 17:56 19:15 19:15 WBC (4.8-10.8) X10*3/uL RBC (4.20-5.50) X10*6/uL Hgb (12.0-16.0) g/dl Hct (37.0-47.0) % MCV (80.0-98.0) fL MCH (27.0-33.0) pg MCHC (31.0-35.0) g/dl RDW (11.0-16.0) % Plt Count (160-400) X10*3/uL MPV (9.4-12.3) fL Immature Gran % (Auto) (0.0-0.4) % Neut % (Auto) (45-73) % Lymph % (Auto) (20-40) % [place] % (Auto) (2-11) % Eos % (Auto) (0-4) % Baso % (Auto) (0-2) % Lymph # (Auto) (1.2-4.9) X10*3/uL [place] # (Auto) (0.1-1.2) X10*3/uL Eos # (Auto) (0.0-0.4) X10*3/uL Baso # (Auto) (0.0-0.2) X10*3/uL Abs Immat Gran (auto) (0.00-0.03) X10*3/uL Absolute Neuts (auto) (2.0-8.3) x10*3/uL Absolute Nucleated RBC (0.0-0.012) X10*3/uL Nucleated RBC % (auto) (0.0-0.2) /100WBC Sodium (135-145) mmol/L Potassium (3.3-5.1) mmol/L Chloride (96-108) mmol/L Carbon Dioxide (22-29) mmol/L Anion Gap (12-20) BUN (9-16) mg/dL Creatinine (0.5-1.4) mg/dL Estim Creat Clear Calc Estimated GFR Random Glucose (60-115) mg/dL Calcium (8.4-10.2) mg/dL Total Bilirubin (0.0-1.0) mg/dL AST (5-31) U/L ALT (0-31) U/L Alkaline Phosphatase (39-117) U/L Troponin I High Sens 9.2 10.3 (<3.5-17.0) ng/L Total Protein (6.5-8.0) g/dL Albumin (3.5-5.0) g/dL Urine Color Yellow Urine Appearance Clear Urine pH 5.0 (5.0-9.0) Ur Specific [place] 1.010 (1.005-1.025) Urine Protein Negative (Neg-Trace) mg/dL Urine Glucose (UA) Negative (Negative) mg/dL Urine Ketones 40 (Negative) mg/dL Urine Blood Trace H (Negative) Urine Nitrite Negative (Negative) Ur Leukocyte Esterase Negative (Negative) Urine RBC 0-2 (0-2) /HPF Urine WBC 0-5 (0-5) /HPF Ur Squamous Epith Cells 0-2 (0-2) /HPF Urine Bacteria None Seen (None Seen) Hyaline Casts 0-2 (0-2) /LPF Urine Opiates Screen (Not Detect) Urine Fentanyl Screen (Not Detect) Ur Barbiturates Screen (Not Detect) Ur Phencyclidine Scrn (Not Detect) Ur Amphetamines Screen (Not Detect) U Benzodiazepines Scrn (Not Detect) Urine Cocaine Screen (Not Detect) U Marijuana (THC) Screen (Not Detect) Ethyl Alcohol mg/dL COVID-19 (MESHA) (Negative) COVID-19 Clin Com 06/21/22 Range/Units 19:15 WBC (4.8-10.8) X10*3/uL RBC (4.20-5.50) X10*6/uL Hgb (12.0-16.0) g/dl Hct (37.0-47.0) % MCV (80.0-98.0) fL MCH (27.0-33.0) pg MCHC (31.0-35.0) g/dl RDW (11.0-16.0) % Plt Count (160-400) X10*3/uL MPV (9.4-12.3) fL Immature Gran % (Auto) (0.0-0.4) % Neut % (Auto) (45-73) % Lymph % (Auto) (20-40) % [place] % (Auto) (2-11) % Eos % (Auto) (0-4) % Baso % (Auto) (0-2) % Lymph # (Auto) (1.2-4.9) X10*3/uL [place] # (Auto) (0.1-1.2) X10*3/uL Eos # (Auto) (0.0-0.4) X10*3/uL Baso # (Auto) (0.0-0.2) X10*3/uL Abs Immat Gran (auto) (0.00-0.03) X10*3/uL Absolute Neuts (auto) (2.0-8.3) x10*3/uL Absolute Nucleated RBC (0.0-0.012) X10*3/uL Nucleated RBC % (auto) (0.0-0.2) /100WBC Sodium (135-145) mmol/L Potassium (3.3-5.1) mmol/L Chloride (96-108) mmol/L Carbon Dioxide (22-29) mmol/L Anion Gap (12-20) BUN (9-16) mg/dL Creatinine (0.5-1.4) mg/dL Estim Creat Clear Calc Estimated GFR Random Glucose (60-115) mg/dL Calcium (8.4-10.2) mg/dL Total Bilirubin (0.0-1.0) mg/dL AST (5-31) U/L ALT (0-31) U/L Alkaline Phosphatase (39-117) U/L Troponin I High Sens (<3.5-17.0) ng/L Total Protein (6.5-8.0) g/dL Albumin (3.5-5.0) g/dL Urine Color Urine Appearance Urine pH (5.0-9.0) Ur Specific [place] (1.005-1.025) Urine Protein (Neg-Trace) mg/dL Urine Glucose (UA) (Negative) mg/dL Urine Ketones (Negative) mg/dL Urine Blood (Negative) Urine Nitrite (Negative) Ur Leukocyte Esterase (Negative) Urine RBC (0-2) /HPF Urine WBC (0-5) /HPF Ur Squamous Epith Cells (0-2) /HPF Urine Bacteria (None Seen) Hyaline Casts (0-2) /LPF Urine Opiates Screen POSITIVE H (Not Detect) Urine Fentanyl Screen POSITIVE H (Not Detect) Ur Barbiturates Screen Not Detected (Not Detect) Ur Phencyclidine Scrn Not Detected (Not Detect) Ur Amphetamines Screen Not Detected (Not Detect) U Benzodiazepines Scrn Not Detected (Not Detect) Urine Cocaine Screen POSITIVE H (Not Detect) U Marijuana (THC) Screen Not Detected (Not Detect) Ethyl Alcohol mg/dL COVID-19 (MESHA) (Negative) COVID-19 Clin Com Discharge Plan Discharge Clinical Impression: Substance abuse Patient Disposition: Home, Self-Care Instructions: Polysubstance Abuse (ED) Additional Instructions: You were referred to detox program [facility]. Please go there after discharge. Return to the ED immediately for any concerning complaints. Prescriptions: No Action benztropine 1 mg tablet 1 tab PO BID zolpidem 10 mg tablet 1 tab PO BEDTIME Latuda 80 mg tablet 1 tab PO QPM metoclopramide HCl 10 mg tablet 1 tab PO TID trazodone 100 mg tablet 1 tab PO BEDTIME clonidine HCl 0.1 mg tablet 1 tab PO TID PRN (Reason: Anxiety) clonazepam 2 mg tablet 1 tab PO QPM fluoxetine 20 mg capsule 1 cap PO DAILY gabapentin 800 mg tablet 1 tab PO BID Interventions: Lee-Suicide Risk Severity Scale Last Done: 06/22/22 10:48 ED Discharge Assessment Last Done: 06/22/22 13:54 Discharge Date/Time: 06/22/22 13:55 Print Language: [place]
[2022-06-21 18:29] LABS: Troponin-I High Sensitivity 9.2 ng/L (<3.5-17.0)
[2022-06-21 19:24] LABS: Appearance Urine Clear; Color Urine Yellow; Glucose Urine UA Negative (Negative); Leukocyte Esterase Urine Negative (Negative); Nitrite Urine Negative (Negative); UMIC TRIGGER UACC YES; Urine Blood Trace (Negative); Urine Ketones 40 mg/dL (Negative); Urine Protein Negative (Neg-Trace)
[2022-06-21 19:29] LABS: Bacteria Urine None Seen (None Seen); Hyaline Casts Urine 0-2 /LPF (0-2); RBC Urine 0-2 /HPF (0-2); Squamous Epithelial Cell Urine 0-2 /HPF (0-2); WBC Urine 0-5 /HPF (0-5)
--- NOTE | 2022-06-21 19:47 | MHC.RECOVSUP ---
r consult:ETOH/Substance use o? Current location:ED01H? o? Identified substance use concern:? -? Overdose -? Seeking ATS (detox) ? Intervention: o? ATS bed search started/completed/in process o? Harm reduction discussion ? Plan: o? Bed search in progress to [facility] o? Follow up tomorrow? ? Additional information:RC met with pt, pt is interested in ATS. Janette from Care Team informed me that pt needs to be medically cleared. Please follow up!
[2022-06-21 20:00] VITALS: BP 110/76; PULSE 79; RESP 16; TEMP 36.1; O2SAT 98
[2022-06-21 20:09] LABS: Troponin-I High Sensitivity 10.3 ng/L (<3.5-17.0)
--- NOTE | 2022-06-21 20:10 | PHA.MEDREC ---
Pharmacy Consult ? Medication Reconciliation Pharmacy has completed the medication reconciliation.
[2022-06-21 21:14] LABS: Alanine Aminotransferase 94 U/L (0-31); Albumin Level 4.2 g/dL (3.5-5.0); Alkaline Phosphatase 52 U/L (39-117); Anion Gap 19 (12-20); Aspartate Amino Transferase 323 U/L (5-31); Blood Urea Nitrogen 10 mg/dL (9-16); Calcium 9.7 mg/dL (8.4-10.2); Carbon Dioxide 25 mmol/L (22-29); Chloride 96 mmol/L (96-108); Creatinine Clr Calc Pharmacy 96.8; Estimated Glomerular Filt Rate > 60; Ethanol < 10 mg/dL; Glucose Random 63 mg/dL (60-115); Potassium 3.8 mmol/L (3.3-5.1); Sodium 136 mmol/L (135-145); Total Protein 6.8 g/dL (6.5-8.0)
--- NOTE | 2022-06-21 21:20 | PC.NURSE ---
PT A&Ox3, reports no pain, sitting on stretcher, talking on cellphone. Food provided.
[2022-06-21 21:28] LABS: Bilirubin Total 0.8 mg/dL (0.0-1.0)
[2022-06-21 22:01] LABS: Amphetamine Screen Urine Not Detected (Not Detect); Barbiturates, Urine Not Detected (Not Detect); Benzodiazepines Screen Urine Not Detected (Not Detect); Cannabinoid Screen Urine Not Detected (Not Detect); Cocaine Screen Urine POSITIVE (Not Detect); Fentanyl, urine POSITIVE (Not Detect); Opiate Screen Urine POSITIVE (Not Detect); Phencyclidine Screen Urine Not Detected (Not Detect)
[2022-06-21 22:02] LABS: COVID-19 Test Negative (Negative); IDNOW Serial# BCCEAD1C
[2022-06-21 22:04] VITALS: BP 114/87; PULSE 78; RESP 16; TEMP 36.2; O2SAT 98
--- NOTE | 2022-06-21 22:04 | MHC.EDTECH ---
pt went to bathroom. changed kuldip to dry one.
--- NOTE | 2022-06-21 22:41 | MHC.CARE ---
Pt medically cleared, pt will be referred to [facility] detox in the morning.
[2022-06-22 02:00] VITALS: BP 105/58; PULSE 78; RESP 12; TEMP 36.4; O2SAT 97
--- NOTE | 2022-06-22 02:13 | PC.NURSE ---
PT ambulated independently to BR. Denies any pain. Fluids and crackers given per request.
[2022-06-22] MEDS: Zolpidem Tartrate 5 MG TABLET 10 MG PO (02:37)
[2022-06-22] MEDS: traZODone HCL 100 MG TABLET PO (02:41)
--- NOTE | 2022-06-22 02:43 | PC.NURSE ---
Addendum entered by Lola Rodas 06/22/22 02:43: PT calm and cooperative, resting quietly on stretcher. Original Note: meds given as documented.
[2022-06-22 06:24] VITALS: BP 106/54; PULSE 72; RESP 12; TEMP 36.8; O2SAT 96
[2022-06-22 08:19] VITALS: BP 105/44; PULSE 78; RESP 16; TEMP 37.2; O2SAT 95
[2022-06-22 10:49] VITALS: BP 92/54; PULSE 74; RESP 18; O2SAT 96
--- NOTE | 2022-06-22 12:17 | MHC.RECOVRN ---
Still awaiting review by [facility].
--- NOTE | 2022-06-22 12:51 | MHC.RECOVRN ---
Pt completing phone intake with [facility]. [facility] presenting stipulations-pt must have all supplies, medications in hand, and agreeable to tx suggested at facility.
--- NOTE | 2022-06-22 13:05 | MHC.RECOVRN ---
Pt accepted and agreeable to [facility]. Will be transported via [employer].
== END 2022-06-22 13:55 | disposition home or self-care (01) ==
PROVIDERS: Physician Assistant; Emergency Provider Internal Medicine; PCP Ophthalmology
DX: T40.1X1A Poisoning by heroin, accidental (unintentional), initial encounter (principal); T40.5X1A Poisoning by cocaine, accidental (unintentional), initial encounter; Y92.9 Unspecified place or not applicable; Z20.822 Contact with and (suspected) exposure to COVID-19; Z79.899 Other long term (current) drug therapy
CPT/HCPCS: 36415; 80053; 80307; 81001; 82077; 84484; 85025; 87635; 93005; 96374; 99284; 99285; J1200

== ENCOUNTER 2023-02-04 23:08 | Outpatient (BNV) | payer MEDICAID, SELFPAY | END 2023-02-06 09:00 | PROVIDERS: Admitting Provider Psychiatry & Neurology Psychiatry; Responsible Provider Registered Nurse; Visit Provider Internal Medicine Cardiovascular Disease | DX: R10.9 Unspecified abdominal pain (principal); F33.1 Major depressive disorder, recurrent, moderate | CPT/HCPCS: 93010 ==

== ENCOUNTER 2023-02-04 23:08 | Inpatient (IN) | payer OTHER, SELFPAY ==
--- NOTE | 2023-02-05 07:35 | PC.ADMIT ---
Patient is a 37-year-old, white, cisgender woman who presents as a direct admit from [facility]. She had reported increased depression, SI without a plan, and crack cocaine use. Per [facility], Patient is addicted to crack cocaine and suffers from restrictive, disordered eating which she identifies as anorexia. As such, patient's health has been greatly impacted. Patient reports that she is unable to stop using and relapses immediately upon release from inpatient treatment. Patient reports immense feelings of guilt, shame, and hopelessness in the face of this situation. Patient's boyfriend recently ended their relationship due to her substance abuse and mental illness, however they continue to live together as roommates. Patient presented to in a hospital gown, very drowsy, reporting to have taken her evening meds at [facility]. She signed an application for care and treatment on a conditional voluntary basis, but declined to participate in the rest of the admission process because she was too tired, and said she would be happy to cooperate in the morning. Patient denied any current SI/HI/VH/AH. Patient further stated she was very grateful to be able to go to her room. Patient is known to with a previous admission in November of 2022. She has an ileostomy appliance and stated she had no need with any assistance or supplies overnight.
[2023-02-05 07:48] LABS: Alanine Aminotransferase 21 U/L (0-31); Albumin Level 3.8 g/dL (3.5-5.0); Alkaline Phosphatase 49 U/L (39-117); Anion Gap 13 (12-20); Aspartate Amino Transferase 23 U/L (5-31); Bilirubin Total 0.4 mg/dL (0.0-1.0); Blood Urea Nitrogen 11 mg/dL (9-16); Calcium 9.6 mg/dL (8.4-10.2); Carbon Dioxide 24 mmol/L (22-29); Chloride 108 mmol/L (96-108); Cholesterol 166 mg/dL; Estimated Glomerular Filt Rate > 60; Glucose Fasting 99 mg/dL (60-99); HDL Cholesterol 52 mg/dL; LDL Cholesterol Calculated 103 mg/dl; Potassium 4.1 mmol/L (3.3-5.1); Sodium 141 mmol/L (135-145); Total Protein 7.1 g/dL (6.5-8.0); Triglycerides 55 mg/dL
--- NOTE | 2023-02-05 11:49 | HO.PM.IMCN ---
History of Present Illness Data of Consult Service Date: 02/05/23 Requesting physician: Deana Saavedra Primary Care Provider: Unknown Physician HPI Reason for consult: medical H&P 37 year old female with history of disordered eating, hx of colonic inertia and SMA with ileostomy placed 4 years ago, pelvis floor dysfunction requiring self catheterization, fibromyagla, depression/anxiety, polysubstance abuse admitted to psychiatry from [facility] ED with consult placed to hospitalist service for medical H&P. She did also have GJ tube for several months earlier this year and was not happy with 40 pound weight gain so it was removed. She tells me she overdosed on opiate prior to arrival to ED at [facility] and was reportedly found to be seizing, unclear if this is after narcan administration. States she has a history of myoclonic jerking but no known epileptic seizure disorder. She also smokes crack cocaine on a regular basis. Rare etoh use. She is concerned about loose stool in her ostomy bag and is requesting loperamide. She also states she has not been able to fully empty her bladder since arrival. Review of Systems Review of Systems: General: No fevers, malaise, unintentional weight loss HEENT: No blurred vision, diplopia. No sore throat, nasal congestion, rhinorrhea, sinus pain, ear pain Cardiovascular: No chest pain, palpitations, or leg edema Respiratory: No shortness of breath, wheezing, cough GI: +loose stool. No abdominal pain, nausea, vomiting, diarrhea, constipation, melena, hematochezia : +urinary retention. 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 Primary fibromyalgia syndrome Self-catheterizes urinary bladder SMA (spinal muscular atrophy) Surgical History Hx of total colectomy Social History Household Members: Significant Other Housing: House Do you presently have visiting nurse or other home services: No Alcohol intake: former Patient Tobacco Use Status: Never used Tobacco Tobacco use type: Cigarette Cigarettes Per Day: 1 Years Smoked: Started age 17 e-Cigarette/Vaping Use: Never Used Second Hand Smoke Exposure: No Substance Use Type: Crack/Cocaine Currently Displaying Signs/Symptoms of Drug Intoxication Withdrawal: No Advance Directives: Yes Advance Directives on File: Yes Advance Directives Date on File: 10/09/21 Do you have thoughts of harming others: None Do you have a plan to hurt others: No Plan service: No Current occupational status: unemployed Sexual orientation: Straight/Heterosexual Meds Allergies Allergy/AdvReac Type Severity Reaction Status Date / Time buspirone [From BuSpar] Allergy Swelling Verified 07/23/21 19:02 chlorpromazine Allergy Anaphylaxis Verified 07/23/21 19:02 [From Thorazine] lamotrigine [From Lamictal] Allergy Rash Verified 07/23/21 19:02 Sulfa (Sulfonamide Allergy Rash Verified 07/23/21 19:02 Antibiotics) linaclotide [From Linzess] AdvReac Abdominal Verified 07/23/21 19:02 Pain quetiapine [From Seroquel] AdvReac bad side Verified 07/23/21 19:02 effects' topiramate AdvReac Fogginess Verified 07/23/21 19:02 ziprasidone [From Geodon] AdvReac psychosis Verified 07/23/21 19:02 Active Medications: Current Medications Acetaminophen (Acetaminophen 325 Mg Tablet) 650 mg PO Q6H PRN PRN Reason: Headache/Pain Mild Scale (1-3) Al Hydroxide/Mg Hydroxide (Magnesium Hydrox/Alum Hydrox 30 Ml Oral.Susp) 30 ml PO Q6H PRN PRN Reason: Heartburn/Nausea Hydroxyzine HCl (Hydroxyzine Hcl 25 Mg Tablet) 25 mg PO Q6H PRN PRN Reason: Anxiety Magnesium Hydroxide (Milk Of Magnesia 30 Ml Oral.Susp) 30 ml PO DAILY PRN PRN Reason: Constipation Trazodone HCl (Trazodone Hcl 50 Mg Tablet) 50 mg PO BEDTIME MRX1 PRN PRN Reason: Insomnia Home Medications Medication Instructions Recorded Confirmed Last Taken Type clonidine HCl 0.1 mg tablet 1 tab PO DIRECTED PRN Anxiety 01/19/22 02/05/23 06/14/22 History fluoxetine 20 mg capsule 1 cap PO DAILY 01/19/22 02/05/23 06/14/22 History trazodone 100 mg tablet 1 tab PO BEDTIME 06/21/22 02/05/23 06/14/22 History zolpidem 10 mg tablet 1 tab PO BEDTIME 06/21/22 02/05/23 06/14/22 History Lactobacillus acidophilus and 1 cap PO DAILY 02/05/23 02/05/23 Unknown History rhamnosus 15 billion cell capsule (Probiotic) benztropine 0.5 mg tablet 0.5 mg PO BID 02/05/23 02/05/23 Unknown History bethanechol chloride 25 mg tablet 25 mg PO TID 02/05/23 02/05/23 Unknown History duloxetine 30 mg capsule,delayed 30 mg PO DAILY 02/05/23 02/05/23 Unknown History release duloxetine 60 mg capsule,delayed 60 mg PO DAILY 02/05/23 02/05/23 Unknown History release hydroxyzine HCl 25 mg tablet See Rx Instructions .Route 02/05/23 02/05/23 Unknown History .COMPLEX PRN Anxiety hydroxyzine pamoate 25 mg capsule 25 mg PO BID PRN anxiety 02/05/23 02/05/23 Unknown History loperamide 2 mg capsule 2 mg PO Diarrhea 02/05/23 Unknown History (Anti-Diarrheal (loperamide)) omeprazole 20 mg capsule,delayed 20 mg PO DAILY 02/05/23 02/05/23 Unknown History release omeprazole 20 mg capsule,delayed 20 mg PO DAILY 02/05/23 02/05/23 Unknown History release thiamine HCl (vitamin B1) 100 mg 100 mg PO DAILY 02/05/23 02/05/23 Unknown History tablet (Vitamin B-1) trazodone 100 mg tablet 100 mg PO BEDTIME 02/05/23 02/05/23 Unknown History Physical Exam Vital Signs and Narrative: Constitutional - Awake and Alert, No apparent distress Eyes - PERRLA, EOMI Cardiovascular - S1S2, RRR, No edema Respiratory - Normal lung expansion, Normal respiratory effort, No respiratory distress, CTA bilaterally Gastrointestinal - NT / ND; +BS; No rebound or guarding. Ileostomy in place Extremities - no calf tenderness bilaterally, no swelling Musculoskeletal - Normal inspection, normal ROM Skin - Warm/Dry Neurological - Alert & oriented x3, CN II-XII in tact, 5/5 strength BUE and BLE Psychological - Appropriate affect Results Labs 02/05/23 07:16 Labs: Laboratory Results - last 24 hr 02/05/23 07:16 Anion Gap 13 Estim Creat Clear Calc TNP Estimated GFR > 60 Fasting Glucose 99 Calcium 9.6 Total Bilirubin 0.4 AST 23 ALT 21 Alkaline Phosphatase 49 Total Protein 7.1 Albumin 3.8 Triglycerides 55 Cholesterol 166 LDL Cholesterol, Calc 103 HDL Cholesterol 52 Assessment and Plan (1) Routine medical exam: Status: Acute Plan 37 year old female with history of disordered eating, hx of colonic inertia and SMA with ileostomy placed 4 years ago, pelvis floor dysfunction requiring self catheterization, fibromyagla, depression/anxiety, polysubstance abuse admitted to psychiatry from [facility] ED with consult placed to hospitalist service for medical H&P. #Mood disorder/disordered eating -plan per psychiatry -total protein and albumin both WNL #Pelvic flood dysfunction -Allow for self catheterization- discussed with nursing #Ileostomy -immodium prn loose stool -routine ostomy care #Fibromyalgia -continue duloxetine #Polysubstance abuse -plan per psych Thank you for allowing me to participate in this consult. Signing off at this time. Please do not hesitate to call for further questions. Time Spent With Patient Time: Total time managing care of this patient today ____ minutes.
--- NOTE | 2023-02-05 15:34 | HO.PSYADMNOT ---
HPI Date of Service: 02/05/23 Chief Complaint: F33.2 Major depressive disorder/F14.20 Sources of Information: patient interviewed, chart reviewed and crisis/core team assessment reviewed HPI Subjective Notes: [facility] Warning and Conditional Voluntary Healthcare Proxy: No Guardianship: No Medical Problems Affecting Mental Status: No Narrative: 37 yo female, history of severe recurrent major depression, restrictive anorexia, polysubstance use disorder, cocaine use disorder presents in transfer for admission. Pt begins our meeting by stating I need 10 mg Ambien to sleep . The only relief I have is sleep-I want to be , I hate existing and sleep is the only reprieve. Reports suicide attempt by taking 1/8th bag of Fentanyl and crack. Identifies stressors as loss of relationship due to illness, multiple medical issues-SMA syndrome, G/J Tube in place Aug-November, colonic inertia, iliostomy, seizure hx, in need of dental care and self-cath need. Reports ~40lb wt gain in one year, break up with relationship due to illness (they are still room-mates). Reports sleep only with Ambien, low appetite, tactile hallucinations after cocaine use, feeling she has an eyelash in her eye when using cocaine and uses safety pins and tweezers in her eyes to remove them along with significant guilt, shame and hopelessness. Past Psychiatric History: -Per chart, hx of suicide attempts at age 10 and 22. -Hx of intentionally ODing on heroin on 07/22/20 as a suicide attempt and was administered narcan at [facility]. -Per chart, hx of IPLOC 32x in the [facility] for her eating disorder. Hx of PHP 2x in 2020 at [facility] (October and April). Hx of admission to [facility]. Hx of multiple admissions at [facility] in 2021. -Hx of OP therapy since age 12, psychiatrist is Yonas Morrison. No therapist -Hx of disordered eating/ anorexia since age 16. -Hx of TMS in 2019 at [facility], denied benefit emt intermediate. -Past med trials: Pt reports she was on prozac simultaneously with cymbalta. She denies benefit on prozac. Says she is ?very opposed? to seroquel. Wellbutrin. Lamictal (rash). Remeron. 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 Social History: -Lives with her bf, who she says is supportive. 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 Substance History: crack, heroin Trauma History: -Per chart, describes past several years with organ failure related to anorexia, experiences from substance use, as traumatic. Diagnostics Labs 02/05/23 07:16 Labs: Laboratory Results - last 48 hr 02/05/23 07:16 Sodium 141 Potassium 4.1 Chloride 108 Carbon Dioxide 24 Anion Gap 13 BUN 11 Creatinine 0.76 Estim Creat Clear Calc TNP Estimated GFR > 60 Fasting Glucose 99 Calcium 9.6 Total Bilirubin 0.4 AST 23 ALT 21 Alkaline Phosphatase 49 Total Protein 7.1 Albumin 3.8 Triglycerides 55 Cholesterol 166 LDL Cholesterol, Calc 103 HDL Cholesterol 52 Toxicology-cocaine, amphetamines RBC 3.49 HGB < HCT < MCV/MCH < MCHC < AST 51 HCG neg Meds/Allergies Meds Home Medications Medication Instructions Recorded Confirmed Type clonidine HCl 0.1 mg tablet 1 tab PO DIRECTED PRN Anxiety 01/19/22 02/05/23 History fluoxetine 20 mg capsule 1 cap PO DAILY 01/19/22 02/05/23 History trazodone 100 mg tablet 1 tab PO BEDTIME 06/21/22 02/05/23 History zolpidem 10 mg tablet 1 tab PO BEDTIME 06/21/22 02/05/23 History Lactobacillus acidophilus and 1 cap PO DAILY 02/05/23 02/05/23 History rhamnosus 15 billion cell capsule (Probiotic) benztropine 0.5 mg tablet 0.5 mg PO BID 02/05/23 02/05/23 History bethanechol chloride 25 mg tablet 25 mg PO TID 02/05/23 02/05/23 History duloxetine 30 mg capsule,delayed 30 mg PO DAILY 02/05/23 02/05/23 History release duloxetine 60 mg capsule,delayed 60 mg PO DAILY 02/05/23 02/05/23 History release hydroxyzine HCl 25 mg tablet See Rx Instructions .Route 02/05/23 02/05/23 History .COMPLEX PRN Anxiety hydroxyzine pamoate 25 mg capsule 25 mg PO BID PRN anxiety 02/05/23 02/05/23 History loperamide 2 mg capsule 2 mg PO Diarrhea 02/05/23 History (Anti-Diarrheal (loperamide)) omeprazole 20 mg capsule,delayed 20 mg PO DAILY 02/05/23 02/05/23 History release omeprazole 20 mg capsule,delayed 20 mg PO DAILY 02/05/23 02/05/23 History release thiamine HCl (vitamin B1) 100 mg 100 mg PO DAILY 02/05/23 02/05/23 History tablet (Vitamin B-1) trazodone 100 mg tablet 100 mg PO BEDTIME 02/05/23 02/05/23 History Allergies Allergies Allergy/AdvReac Type Severity Reaction Status Date / Time buspirone [From BuSpar] Allergy Swelling Verified 07/23/21 19:02 chlorpromazine Allergy Anaphylaxis Verified 07/23/21 19:02 [From Thorazine] lamotrigine [From Lamictal] Allergy Rash Verified 07/23/21 19:02 Sulfa (Sulfonamide Allergy Rash Verified 07/23/21 19:02 Antibiotics) linaclotide [From Linzess] AdvReac Abdominal Verified 07/23/21 19:02 Pain quetiapine [From Seroquel] AdvReac bad side Verified 07/23/21 19:02 effects' topiramate AdvReac Fogginess Verified 07/23/21 19:02 ziprasidone [From Geodon] AdvReac psychosis Verified 07/23/21 19:02 Mental Status Exam Mental Status Exam Patient Appearance: Fatigued Patient Orientation: Person, Place, Time and Situation Level of Consciousness: Alert Patient Behavior: Guarded, Talkative, Fatigued, Distractible and Poor Eye Contact Mood Description: Depressed Affect Description: Depressed Patient Cognition Impaired: No Ability to Follow Directions: Fair Speech Pattern: Spontaneous Speech and Soft-Spoken Memory Description: Episodic Impaired Hallucinations: Tactile Perceptual Disturbances: Depersonalization, Derealization and Hallucinations Thought Process: Illogical, Distracted, Rumination and Evasive Thought Content: positive for Circumstantial, positive for Perseveration, positive for Poverty of Content, positive for Preoccupation and positive for Suicidal Ideation Depressive Symptoms: Increased Anxiety, Diff. Making Decisions, Difficulty Sleeping, Loss of Int. in Activity, Feelings of Worthlessness, Significant Weight Gain, Hopelessness, Isolating-Friends/Family, Feelings of Guilt, Unhappiness, Increased Fatigue, Thoughts of /Suicide, Low Self Esteem, Loss of Energy and Difficulty Concentrating Abnormal Motor Activity Signs and Symptoms: Restlessness Judgement: Poor Assessment & Plan Assessment & Plan (1) Cocaine use disorder: Status: Acute Code(s): F14.10 - Cocaine abuse, uncomplicated (2) Major depressive disorder, recurrent, moderate: Status: Acute Code(s): F33.1 - Major depressive disorder, recurrent, moderate (3) Anorexia nervosa, restricting type: Status: Acute Code(s): F50.01 - Anorexia nervosa, restricting type Plan 37 yo female, hx of recurrent major depression, severe, restrictive anorexia and polysubstance use disorder, mainly crack, cocaine. Pt unable to maintain sobriety and is suicidal. She believes IOP would help her but is unsure. She has a strong urge to and finds her existance too painful to bear at this time. Several recent hospitalizations without much success with several losses as a result of illnesses. Plan: Re-establish regime Pt believes IOP will help. Recently required Narcan 01/28. ? Section 35 candidate Engage in milieu Patient educated on: therapeutic strategies Informed Consent: further education needed Reason for continued inpatient stay Substantial Risk for: med/psych decompensation Statement Statement: I have reviewed the history and physical and performed a pertinent examination on my patient. No changes have occurred unless specified. If the History and Physical was not performed prior to admission, the Hospitalist's service will be consulted for completing the admission physical. Time Spent With Patient Time: Total time managing care of this patient today ____ minutes.
[2023-02-05] MEDS: Lurasidone HCl 40 MG TABLET PO (18:11)
[2023-02-05] MEDS: Bethanechol Chloride 25 MG TABLET PO (18:27)
[2023-02-05] MEDS: diphenhydrAMINE HCL 25 MG CAPSULE 50 MG PO (21:24)
[2023-02-05] MEDS: Zolpidem Tartrate 5 MG TABLET 10 MG PO (21:24)
[2023-02-05] MEDS: Benztropine Mesylate 0.5 MG TABLET PO (21:24)
[2023-02-05] MEDS: traZODone HCL 100 MG TABLET PO (21:25)
[2023-02-05 21:30] VITALS: BP 121/84; PULSE 85; RESP 18
[2023-02-05] MEDS: cloNIDine HCL 0.1 MG TABLET PO (21:32)
--- NOTE | 2023-02-05 23:03 | PC.NURSE ---
PT reported and showed this nurse widespread large hives on left leg. NO other symptoms. manager call center contracted, Diphendydramine 50mg ordered and given PO with good effect.
[2023-02-06 07:40] LABS: MANUAL DIFF FLAG NO
[2023-02-06 07:43] LABS: Basophils Percent Auto 0.8 % (0-2); Eosinophils Absolute Auto 0.2 X10*3/uL (0.0-0.4); Eosinophils Percent Auto 5.6 % (0-4); Hematocrit 33.9 % (37.0-47.0); Hemoglobin 10.4 g/dl (12.0-16.0); Imm Gran Abs Auto 0.01 X10*3/uL (0.00-0.03); Imm Gran Pct Auto 0.3 % (0.0-0.4); Lymphocytes Absolute Auto 1.3 X10*3/uL (1.2-4.9); Lymphocytes Percent Auto 35.8 % (20-40); Mean Corpuscular HGB Conc 30.7 g/dl (31.0-35.0); Mean Corpuscular Hemoglobin 23.7 pg (27.0-33.0); Mean Corpuscular Volume 77.4 fL (80.0-98.0); Mean Platelet Volume 9.6 fL (9.4-12.3); Monocytes Absolute Auto 0.3 X10*3/uL (0.1-1.2); Monocytes Percent Auto 9.3 % (2-11); Neutrophils Absolute Auto 1.7 x10*3/uL (2.0-8.3); Neutrophils Percent Auto 48.2 % (45-73); Platelet Count 298 X10*3/uL (160-400); Red Blood Count 4.38 X10*6/uL (4.20-5.50); Red Cell Distribution Width 21.1 % (11.0-16.0); White Blood Count 3.6 X10*3/uL (4.8-10.8)
[2023-02-06 08:08] LABS: Estimated Average Glucose 103 mg/dL; Hemoglobin A1c % 5.2 %
[2023-02-06 08:21] LABS: Thyroid Stimulating Hormone 0.44 uIU/mL (0.32-4.0)
[2023-02-06 08:34] LABS: Folate 9.1 ng/mL (> or = 4.0); Vitamin B12 1197 pg/mL (200-900)
--- NOTE | 2023-02-06 09:00 | ECG_ITS ---
Test Reason : rule out QTc prolongation Blood Pressure : / mmHG Vent. Rate : 066 BPM Atrial Rate : 066 BPM P-R Int : 154 ms QRS Dur : 096 ms QT Int : 440 ms P-R-T Axes : 071 068 030 degrees QTc Int : 461 ms Normal sinus rhythm Normal ECG When compared with ECG of 21-JUN-2022 17:08, T wave inversion less evident in Inferior leads Referred By: Deana Saavedra Electronically Signed By:Silvio Lentz
[2023-02-06] MEDS: Bethanechol Chloride 25 MG TABLET PO ×2 (09:25→18:01)
[2023-02-06] MEDS: DULoxetine HCl 30 MG CAPSULE.DR 90 MG PO (09:25)
[2023-02-06] MEDS: Benztropine Mesylate 0.5 MG TABLET PO ×2 (09:25→21:33)
[2023-02-06] MEDS: Thiamine HCL 100 MG TABLET PO (09:25)
[2023-02-06] MEDS: Omeprazole 20 MG CAPSULE.DR PO (09:28)
--- NOTE | 2023-02-06 16:50 | P.PNPSI_ITS ---
Subjective Subjective Date of Service: 02/06/23 Reason For Visit: F33.2 Major depressive disorder/F14.20 Subjective Notes: Conditional Voluntary Healthcare Proxy: No Guardianship: No Medical Problems Affecting Mental Status: No Interim History: Pt reviewed in team. Records and reports were reviewed. She is visable in milieu and with her peers. She slept last evening and denies SI/HI to team. Medication Compliance: Yes Side effects from medications: No Attending Groups: Yes Review of Systems Acute medical concerns: No Medical Review of Systems: unchanged Mental Status Exam Mental Status Exam Patient Appearance: Fatigued Patient Orientation: Person, Place, Time and Situation Level of Consciousness: Alert Patient Behavior: Guarded, Talkative, Fatigued, Distractible and Poor Eye Con tact Mood Description: Depressed Affect Description: Depressed Patient Cognition Impaired: No Ability to Follow Directions: Fair Speech Pattern: Spontaneous Speech and Soft-Spoken Memory Description: Episodic Impaired Hallucinations: Tactile Perceptual Disturbances: Depersonalization, Derealization and Hallucinations Thought Process: Illogical, Distracted, Rumination and Evasive Thought Content: positive for Circumstantial, positive for Perseveration, posi tive for Poverty of Content, positive for Preoccupation and positive for Suicidal Ideation Depressive Symptoms: Increased Anxiety, Diff. Making Decisions, Difficulty Sleeping, Loss of Int. in Activity, Feelings of Worthlessness, Significant Weight Gain, Hopelessness, Isolating-Friends/Family, Feelings of Guilt, Unhappiness, Increased Fatigue, Thoughts of /Suicide, Low Self Esteem, Loss of Energy and Difficulty Concentrating Abnormal Motor Activity Signs and Symptoms: Restlessness Judgement: Poor Diagnostics Vital Signs (24Hr): Vital Signs - 24 hr 02/05/23 21:30 Pulse Rate 85 Respiratory Rate 18 Blood Pressure 121/84 Labs 02/06/23 07:12 02/05/23 07:16 Labs: Laboratory Results - last 48 hr 02/05/23 02/06/23 02/06/23 07:16 07:12 07:12 WBC 3.6 L RBC 4.38 D Hgb 10.4 L Hct 33.9 L MCV 77.4 L MCH 23.7 L MCHC 30.7 L RDW 21.1 H Plt Count 298 MPV 9.6 Immature Gran % (Auto) 0.3 Neut % (Auto) 48.2 Lymph % (Auto) 35.8 Dale % (Auto) 9.3 Eos % (Auto) 5.6 H Baso % (Auto) 0.8 Lymph # (Auto) 1.3 Dale # (Auto) 0.3 Eos # (Auto) 0.2 Baso # (Auto) 0.0 Abs Immat Gran (auto) 0.01 Absolute Neuts (auto) 1.7 L Absolute Nucleated RBC 0.000 Nucleated RBC % (auto) 0.0 Sodium 141 Potassium 4.1 Chloride 108 Carbon Dioxide 24 Anion Gap 13 BUN 11 Creatinine 0.76 Estim Creat Clear Calc TNP Estimated GFR > 60 Fasting Glucose 99 Estimat Average Glucose 103 Hemoglobin A1c % 5.2 Calcium 9.6 Total Bilirubin 0.4 AST 23 ALT 21 Alkaline Phosphatase 49 Total Protein 7.1 Albumin 3.8 Triglycerides 55 Cholesterol 166 LDL Cholesterol, Calc 103 HDL Cholesterol 52 Vitamin B12 Folate TSH 02/06/23 02/06/23 07:12 07:12 WBC RBC Hgb Hct MCV MCH MCHC RDW Plt Count MPV Immature Gran % (Auto) Neut % (Auto) Lymph % (Auto) Dale % (Auto) Eos % (Auto) Baso % (Auto) Lymph # (Auto) Dale # (Auto) Eos # (Auto) Baso # (Auto) Abs Immat Gran (auto) Absolute Neuts (auto) Absolute Nucleated RBC Nucleated RBC % (auto) Sodium Potassium Chloride Carbon Dioxide Anion Gap BUN Creatinine Estim Creat Clear Calc Estimated GFR Fasting Glucose Estimat Average Glucose Hemoglobin A1c % Calcium Total Bilirubin AST ALT Alkaline Phosphatase Total Protein Albumin Triglycerides Cholesterol LDL Cholesterol, Calc HDL Cholesterol Vitamin B12 1197 H Folate 9.1 TSH 0.44 Medications Medications Current Medications Acetaminophen (Acetaminophen 325 Mg Tablet) 650 mg PO Q6H PRN PRN Reason: Headache/Pain Mild Scale (1-3) Al Hydroxide/Mg Hydroxide (Magnesium Hydrox/Alum Hydrox 30 Ml Oral.Susp) 30 ml PO Q6H PRN PRN Reason: Heartburn/Nausea Benztropine Mesylate (Benztropine Mesylate 0.5 Mg Tablet) 0.5 mg PO BID AMELIA Last Admin: 02/06/23 09:25 Dose: 0.5 mg Bethanechol Chloride (Bethanechol Chloride 25 Mg Tablet) 25 mg PO 0800, 1200,1700 AMELIA Clonidine HCl (Clonidine Hcl 0.1 Mg Tablet) 0.1 mg PO DAILY PRN; Protocol PRN Reason: anxiety Last Admin: 02/05/23 21:32 Dose: 0.1 mg Diphenhydramine HCl (Diphenhydramine Hcl 25 Mg Capsule) 25 mg PO Q4H PRN PRN Reason: Hives Duloxetine HCl (Duloxetine Hcl 30 Mg Capsule.Dr) 90 mg PO DAILY [facility] Last Admin: 02/06/23 09:25 Dose: 90 mg Fluoxetine HCl (Fluoxetine Hcl Oral Solution 20 Mg/5 Ml Solution) 20 mg PO DAILY [facility] Last Admin: 02/06/23 09:27 Dose: Not Given Hydroxyzine HCl (Hydroxyzine Hcl 25 Mg Tablet) 25 mg PO Q6H PRN PRN Reason: Anxiety Loperamide HCl (Loperamide Hcl 2 Mg Capsule) 2 mg PO Q6H PRN PRN Reason: Loose Stool Lurasidone HCl (Lurasidone Hcl 40 Mg Tablet) 40 mg PO DAILY@1730 [facility] Last Admin: 02/05/23 18:11 Dose: 40 mg Magnesium Hydroxide (Milk Of Magnesia 30 Ml Oral.Susp) 30 ml PO DAILY PRN PRN Reason: Constipation Omeprazole (Omeprazole 20 Mg Capsule.Dr) 20 mg PO DAILY@0630 [facility] Last Admin: 02/06/23 09:28 Dose: 20 mg Thiamine HCl (Thiamine Hcl 100 Mg Tablet) 100 mg PO DAILY [facility] Last Admin: 02/06/23 09:25 Dose: 100 mg Trazodone HCl (Trazodone Hcl 100 Mg Tablet) 100 mg PO BEDTIME [facility] Last Admin: 02/05/23 21:25 Dose: 100 mg Zolpidem Tartrate (Zolpidem Tartrate 5 Mg Tablet) 10 mg PO BEDTIME [facility] Last Admin: 02/05/23 21:24 Dose: 10 mg Allergies Allergies Allergy/AdvReac Type Severity Reaction Status Date / Time buspirone [From BuSpar] Allergy Swelling Verified 07/23/21 19:02 chlorpromazine Allergy Anaphylaxis Verified 07/23/21 19:02 [From Thorazine] lamotrigine [From Lamictal] Allergy Rash Verified 07/23/21 19:02 Sulfa (Sulfonamide Allergy Rash Verified 07/23/21 19:02 Antibiotics) linaclotide [From Linzess] AdvReac Abdominal Verified 07/23/21 19:02 Pain quetiapine [From Seroquel] AdvReac bad side Verified 07/23/21 19:02 effects' topiramate AdvReac Fogginess Verified 07/23/21 19:02 ziprasidone [From Geodon] AdvReac psychosis Verified 07/23/21 19:02 Assessment & Plan Assessment & Plan (1) Cocaine use disorder: Status: Acute Code(s): F14.10 - Cocaine abuse, uncomplicated (2) Major depressive disorder, recurrent, moderate: Status: Acute Code(s): F33.1 - Major depressive disorder, recurrent, moderate (3) Anorexia nervosa, restricting type: Status: Acute Code(s): F50.01 - Anorexia nervosa, restricting type Plan 37 yo female, hx of recurrent major depression, severe, restrictive anorexia and polysubstance use disorder, mainly crack, cocaine. Pt unable to maintain sobriety and is suicidal. She believes IOP would help her but is unsure. She has a strong urge to and finds her existance too painful to bear at this time. Several recent hospitalizations without much success with several losses as a result of illnesses. Plan: Re-establish regime Pt believes IOP will help. Recently required Narcan 01/28. ? Section 35 candidate Engage in milieu 02/06/23 Continue current regime Bethanechol timing changed per pt request. Participating in groups. Informed Consent: understands Reason for continued inpatient stay Substantial Risk for: med/psych decompensation Time Spent With Patient Time: Total time managing care of this patient today ____ minutes.
[2023-02-06] MEDS: Lurasidone HCl 40 MG TABLET PO (18:00)
[2023-02-06 21:32] VITALS: BP 128/89; PULSE 77; RESP 18; TEMP 36.4
[2023-02-06] MEDS: traZODone HCL 100 MG TABLET PO (21:33)
[2023-02-06] MEDS: cloNIDine HCL 0.1 MG TABLET PO (21:33)
[2023-02-06] MEDS: Zolpidem Tartrate 5 MG TABLET 10 MG PO (21:34)
[2023-02-07 06:00] VITALS: BP 99/55; PULSE 81; RESP 18; TEMP 36.9; O2SAT 99
[2023-02-07] MEDS: DULoxetine HCl 30 MG CAPSULE.DR 90 MG PO (10:39)
[2023-02-07] MEDS: Omeprazole 20 MG CAPSULE.DR PO (10:39)
[2023-02-07] MEDS: Benztropine Mesylate 0.5 MG TABLET PO ×2 (10:40→20:58)
[2023-02-07] MEDS: Bethanechol Chloride 25 MG TABLET PO ×3 (10:40→17:55)
[2023-02-07] MEDS: Thiamine HCL 100 MG TABLET PO (10:40)
--- NOTE | 2023-02-07 16:48 | P.PNPSI_ITS ---
Subjective Subjective Date of Service: 02/07/23 Reason For Visit: F33.2 Major depressive disorder/F14.20 Subjective Notes: Conditional Voluntary Interim History: Reviewed in team and Dr. Stewart. Patient reports feeling depressed and suicidal d/t losing everything . Patient reports she has been trying to get sober all year ; she does not feel AA or NA are helpful. Pt stated, I was at [facility] for 6 weeks and for that entire time I just thought about ways to kill myself. I would do it by overdose because it's the cleanest way . Patient reports she would like a referral for an online IOP and then PHP at [facility]; she would also like to obtain [facility] services. bakery worker notified. Medication Compliance: Yes Side effects from medications: No Attending Groups: Intermittent Review of Systems Constitutional: Reports as per HPI Eyes: Reports as per HPI Reports as per HPI Cardiovascular: Reports as per HPI Respiratory: Reports as per HPI Gastrointestinal: Reports as per HPI Genitourinary: Reports as per HPI Musculoskeletal: Reports as per HPI Skin/Breast: Reports as per HPI Reports as per HPI Psychiatric: Reports as per HPI Endocrine: Reports as per HPI Hematologic/Lymphatic: Reports as per HPI Allergic/Immunologic: Reports as per HPI Mental Status Exam Mental Status Exam Narrative: Pt is alert and oriented; behavior is cooperative and calm; dressed in casual attire; mood is described as depressed ; eye contact appropriate; Speech is normal rate, volume and prosody and not pressured; no psychomotor agitation/retardation present; thought process is organized and goal directed; Thought content is on tx; otherwise pertinent to relevant topics and without any delusional content, paranoid ideations or grandiosity; denies HI. Pt reports suicidal ideation to overdose. There is no evidence of perceptual disturbance. Patients insight and judgment are poor. Diagnostics Vital Signs (24Hr): Vital Signs - 24 hr 02/06/23 21:32 02/07/23 06:00 Temperature 97.6 F 98.4 F Pulse Rate 77 81 Respiratory Rate 18 18 Blood Pressure 128/89 99/55 L Pulse Oximetry 99 Oxygen Delivery Method Room Air Labs 02/06/23 07:12 02/05/23 07:16 Labs: Laboratory Results - last 48 hr 02/06/23 02/06/23 02/06/23 07:12 07:12 07:12 WBC 3.6 L RBC 4.38 D Hgb 10.4 L Hct 33.9 L MCV 77.4 L MCH 23.7 L MCHC 30.7 L RDW 21.1 H Plt Count 298 MPV 9.6 Immature Gran % (Auto) 0.3 Neut % (Auto) 48.2 Lymph % (Auto) 35.8 [place] % (Auto) 9.3 Eos % (Auto) 5.6 H Baso % (Auto) 0.8 Lymph # (Auto) 1.3 [place] # (Auto) 0.3 Eos # (Auto) 0.2 Baso # (Auto) 0.0 Abs Immat Gran (auto) 0.01 Absolute Neuts (auto) 1.7 L Absolute Nucleated RBC 0.000 Nucleated RBC % (auto) 0.0 Estimat Average Glucose 103 Hemoglobin A1c % 5.2 Vitamin B12 1197 H Folate 9.1 TSH 02/06/23 07:12 WBC RBC Hgb Hct MCV MCH MCHC RDW Plt Count MPV Immature Gran % (Auto) Neut % (Auto) Lymph % (Auto) [place] % (Auto) Eos % (Auto) Baso % (Auto) Lymph # (Auto) [place] # (Auto) Eos # (Auto) Baso # (Auto) Abs Immat Gran (auto) Absolute Neuts (auto) Absolute Nucleated RBC Nucleated RBC % (auto) Estimat Average Glucose Hemoglobin A1c % Vitamin B12 Folate TSH 0.44 Medications Medications Current Medications Acetaminophen (Acetaminophen 325 Mg Tablet) 650 mg PO Q6H PRN PRN Reason: Headache/Pain Mild Scale (1-3) Al Hydroxide/Mg Hydroxide (Magnesium Hydrox/Alum Hydrox 30 Ml Oral.Susp) 30 ml PO Q6H PRN PRN Reason: Heartburn/Nausea Benztropine Mesylate (Benztropine Mesylate 0.5 Mg Tablet) 0.5 mg PO BID [facility] Last Admin: 02/07/23 10:40 Dose: 0.5 mg Bethanechol Chloride (Bethanechol Chloride 25 Mg Tablet) 25 mg PO 0800,1200,1700 [facility] Last Admin: 02/07/23 13:13 Dose: 25 mg Clonidine HCl (Clonidine Hcl 0.1 Mg Tablet) 0.1 mg PO DAILY PRN; Protocol PRN Reason: anxiety Last Admin: 02/06/23 21:33 Dose: 0.1 mg Diphenhydramine HCl (Diphenhydramine Hcl 25 Mg Capsule) 25 mg PO Q4H PRN PRN Reason: Hives Duloxetine HCl (Duloxetine Hcl 30 Mg Capsule.Dr) 90 mg PO DAILY [facility] Last Admin: 02/07/23 10:39 Dose: 90 mg Fluoxetine HCl (Fluoxetine Hcl Oral Solution 20 Mg/5 Ml Solution) 20 mg PO DAILY [facility] Last Admin: 02/07/23 10:40 Dose: Not Given Hydroxyzine HCl (Hydroxyzine Hcl 25 Mg Tablet) 25 mg PO Q6H PRN PRN Reason: Anxiety Loperamide HCl (Loperamide Hcl 2 Mg Capsule) 2 mg PO Q6H PRN PRN Reason: Loose Stool Lurasidone HCl (Lurasidone Hcl 40 Mg Tablet) 40 mg PO DAILY@1730 [facility] Last Admin: 02/06/23 18:00 Dose: 40 mg Magnesium Hydroxide (Milk Of Magnesia 30 Ml Oral.Susp) 30 ml PO DAILY PRN PRN Reason: Constipation Omeprazole (Omeprazole 20 Mg Capsule.) 20 mg PO DAILY@0630 [facility] Last Admin: 02/07/23 10:39 Dose: 20 mg Thiamine HCl (Thiamine Hcl 100 Mg Tablet) 100 mg PO DAILY [facility] Last Admin: 02/07/23 10:40 Dose: 100 mg Trazodone HCl (Trazodone Hcl 100 Mg Tablet) 100 mg PO BEDTIME [facility] Last Admin: 02/06/23 21:33 Dose: 100 mg Zolpidem Tartrate (Zolpidem Tartrate 5 Mg Tablet) 10 mg PO BEDTIME [facility] Last Admin: 02/06/23 21:34 Dose: 10 mg Allergies Allergies Allergy/AdvReac Type Severity Reaction Status Date / Time buspirone [From BuSpar] Allergy Swelling Verified 07/23/21 19:02 chlorpromazine Allergy Anaphylaxis Verified 07/23/21 19:02 [From Thorazine] lamotrigine [From Lamictal] Allergy Rash Verified 07/23/21 19:02 Sulfa (Sulfonamide Allergy Rash Verified 07/23/21 19:02 Antibiotics) linaclotide [From Linzess] AdvReac Abdominal Verified 07/23/21 19:02 Pain quetiapine [From Seroquel] AdvReac bad side Verified 07/23/21 19:02 effects' topiramate AdvReac Fogginess Verified 07/23/21 19:02 ziprasidone [From Geodon] AdvReac psychosis Verified 07/23/21 19:02 Assessment & Plan Assessment & Plan (1) Cocaine use disorder: Status: Acute Code(s): F14.10 - Cocaine abuse, uncomplicated (2) Major depressive disorder, recurrent, moderate: Status: Acute Code(s): F33.1 - Major depressive disorder, recurrent, moderate (3) Anorexia nervosa, restricting type: Status: Acute Code(s): F50.01 - Anorexia nervosa, restricting type Plan 37 yo female, hx of recurrent major depression, severe, restrictive anorexia and polysubstance use disorder, mainly crack, cocaine. Pt unable to maintain sobriety and is suicidal. She believes IOP would help her but is unsure. She has a strong urge to and finds her existance too painful to bear at this time. Several recent hospitalizations without much success with several losses as a result of illnesses. Plan: Re-establish regime Pt believes IOP will help. Recently required Narcan 01/28. ? Section 35 candidate Engage in milieu 02/06/23 Continue current regime Bethanechol timing changed per pt request. Participating in groups. 02/07: Pt depressed and suicidal; feels she as lost everything . Would like to not use substances. Pt reports she would like IOP, [facility] and DM services. bakery worker notified. Patient educated on: diagnosis, medication risk/benefits and therapeutic strategies Informed Consent: understands Reason for continued inpatient stay Substantial Risk for: harm to self and med/psych decompensation Time Spent With Patient Time: Total time managing care of this patient today _30___ minutes.
[2023-02-07] MEDS: Lurasidone HCl 40 MG TABLET PO (17:55)
[2023-02-07 18:00] VITALS: BP 114/73; PULSE 67; RESP 18; TEMP 36.8; O2SAT 100
[2023-02-07 20:56] VITALS: BP 114/72; PULSE 90; RESP 18
[2023-02-07] MEDS: cloNIDine HCL 0.1 MG TABLET PO (20:58)
[2023-02-07] MEDS: traZODone HCL 100 MG TABLET PO (20:58)
[2023-02-07] MEDS: hydrOXYzine HCL 25 MG TABLET PO (20:58)
[2023-02-07] MEDS: Zolpidem Tartrate 5 MG TABLET 10 MG PO (20:58)
[2023-02-08] MEDS: Benztropine Mesylate 0.5 MG TABLET PO ×2 (08:45→21:52)
[2023-02-08] MEDS: Omeprazole 20 MG CAPSULE.DR PO (08:46)
[2023-02-08] MEDS: Thiamine HCL 100 MG TABLET PO (08:46)
[2023-02-08] MEDS: DULoxetine HCl 30 MG CAPSULE.DR 90 MG PO (08:47)
[2023-02-08] MEDS: Bethanechol Chloride 25 MG TABLET PO ×3 (08:47→18:10)
[2023-02-08 09:45] VITALS: BP 101/62; PULSE 91; RESP 18; O2SAT 99
[2023-02-08] MEDS: Acetaminophen 325 MG TABLET 650 MG PO ×2 (12:32→18:14)
--- NOTE | 2023-02-08 17:40 | HO.PSYCHPN ---
Subjective Subjective Date of Service: 02/08/23 Reason For Visit: F33.2 Major depressive disorder/F14.20 Subjective Notes: Conditional Voluntary Interim History: Pt reports not having much to live for. She reports feeling like a burden, disappointment to everyone. Pt reports she OD on fentanyl but friend narcan her. She reports she thought about OD close to the ED so that medical personnel would find her and won't be as traumatized as if random people find her. Pt reports she hates who she has become and does not see much reasons to be alive. She reports she has to go through substance use tx program prior to being accepted into eating disorder. Appears passively accepting treatment as family wants her to do so. Medication Compliance: Yes Side effects from medications: No Review of Systems Review of Systems General: No fevers, malaise, unintentional weight loss HEENT: No blurred vision, diplopia. No sore throat, nasal congestion, rhinorrhea, sinus pain, ear pain Cardiovascular: No chest pain, palpitations, or leg edema Respiratory: No shortness of breath, wheezing, cough GI: +loose stool. No abdominal pain, nausea, vomiting, diarrhea, constipation, melena, hematochezia : +urinary retention. No dysuria, hematuria, increased urinary frequency MSK: No myalgia, back pain Neuro: No headaches, weakness, paresthesias Skin: No rashes or lesions Constitutional: Reports as per HPI, Reports difficulty sleeping, Reports fatigue, Reports lethargy, Reports malaise and Reports weight gain Eyes: Reports as per HPI and Reports other (when on cocaine attempt to take lashes out) Reports system reviewed and no additional complaints, except as documented and Reports as per HPI Cardiovascular: Reports as per HPI and Reports no additional cardiovascular complaints Respiratory: Reports as per HPI and Reports no additional respiratory complaints Gastrointestinal: Reports as per HPI Musculoskeletal: Reports as per HPI Skin/Breast: Reports as per HPI Reports as per HPI and Reports behavioral changes Psychiatric: Reports as per HPI, Reports abnormal sleep pattern, Reports anxiety, Reports behavioral changes, Reports change in appetite, Reports depression, Reports difficulty concentrating, Reports hopelessness, Reports irritability, Reports anhedonia and Reports suicidal ideation Endocrine: Reports as per HPI and Reports fatigue Hematologic/Lymphatic: Reports no additional hematologic/lymphatic complaints and Reports as per HPI Allergic/Immunologic: Reports no additional allergic/immunologic complaints and Reports as per HPI Mental Status Exam Mental Status Exam Narrative: Appearance: thin, casually groomed, disheveled, in NAD Behavior: cooperative Psychomotor: no overt agitation or retardation noted Speech: clear, normal rate/rhythm/volume, spontaneous TP: linear TC: feeling hopeless, self loathing Mood: hopeless Affect: flat SI: chronic, passive HI: none VH/AH: none Delusions: none Insight/judgment: fair x 2. Memory/cog: alert, oriented x 3. grossly intact to conversational testing. Diagnostics Vital Signs (24Hr): Vital Signs - 24 hr 02/07/23 18:00 02/07/23 20:56 02/08/23 09:45 Temperature 98.2 F Pulse Rate 67 90 91 Respiratory Rate 18 18 18 Blood Pressure 114/73 114/72 101/62 Pulse Oximetry 100 99 Oxygen Delivery Method Room Air Room Air Labs 02/06/23 07:12 02/05/23 07:16 Medications Medications Current Medications Acetaminophen (Acetaminophen 325 Mg Tablet) 650 mg PO Q6H PRN PRN Reason: Headache/Pain Mild Scale (1-3) Last Admin: 02/08/23 12:32 Dose: 650 mg Al Hydroxide/Mg Hydroxide (Magnesium Hydrox/Alum Hydrox 30 Ml Oral.Susp) 30 ml PO Q6H PRN PRN Reason: Heartburn/Nausea Benztropine Mesylate (Benztropine Mesylate 0.5 Mg Tablet) 0.5 mg PO BID [facility] Last Admin: 02/08/23 08:45 Dose: 0.5 mg Bethanechol Chloride (Bethanechol Chloride 25 Mg Tablet) 25 mg PO 0800,1200,1700 [facility] Last Admin: 02/08/23 12:20 Dose: 25 mg Clonidine HCl (Clonidine Hcl 0.1 Mg Tablet) 0.1 mg PO DAILY PRN; Protocol PRN Reason: anxiety Last Admin: 02/07/23 20:58 Dose: 0.1 mg Diphenhydramine HCl (Diphenhydramine Hcl 25 Mg Capsule) 25 mg PO Q4H PRN PRN Reason: Hives Duloxetine HCl (Duloxetine Hcl 30 Mg Capsule.Dr) 90 mg PO DAILY [facility] Last Admin: 02/08/23 08:47 Dose: 90 mg Fluoxetine HCl (Fluoxetine Hcl 20 Mg Capsule) 20 mg PO DAILY [facility] Hydroxyzine HCl (Hydroxyzine Hcl 25 Mg Tablet) 25 mg PO Q6H PRN PRN Reason: Anxiety Last Admin: 02/07/23 20:58 Dose: 25 mg Loperamide HCl (Loperamide Hcl 2 Mg Capsule) 2 mg PO Q6H PRN PRN Reason: Loose Stool Lurasidone HCl (Lurasidone Hcl 40 Mg Tablet) 40 mg PO DAILY@1730 [facility] Last Admin: 02/07/23 17:55 Dose: 40 mg Magnesium Hydroxide (Milk Of Magnesia 30 Ml Oral.Susp) 30 ml PO DAILY PRN PRN Reason: Constipation Omeprazole (Omeprazole 20 Mg Capsule.Dr) 20 mg PO DAILY@0630 [facility] Last Admin: 02/08/23 08:46 Dose: 20 mg Thiamine HCl (Thiamine Hcl 100 Mg Tablet) 100 mg PO DAILY [facility] Last Admin: 02/08/23 08:46 Dose: 100 mg Trazodone HCl (Trazodone Hcl 100 Mg Tablet) 100 mg PO BEDTIME [facility] Last Admin: 02/07/23 20:58 Dose: 100 mg Zolpidem Tartrate (Zolpidem Tartrate 5 Mg Tablet) 10 mg PO BEDTIME [facility] Last Admin: 02/07/23 20:58 Dose: 10 mg Allergies Allergies Allergy/AdvReac Type Severity Reaction Status Date / Time buspirone [From BuSpar] Allergy Swelling Verified 07/23/21 19:02 chlorpromazine Allergy Anaphylaxis Verified 07/23/21 19:02 [From Thorazine] lamotrigine [From Lamictal] Allergy Rash Verified 07/23/21 19:02 Sulfa (Sulfonamide Allergy Rash Verified 07/23/21 19:02 Antibiotics) linaclotide [From Linzess] AdvReac Abdominal Verified 07/23/21 19:02 Pain quetiapine [From Seroquel] AdvReac bad side Verified 07/23/21 19:02 effects' topiramate AdvReac Fogginess Verified 07/23/21 19:02 ziprasidone [From Geodon] AdvReac psychosis Verified 07/23/21 19:02 Assessment & Plan Assessment & Plan (1) Major depressive disorder, recurrent, moderate: Status: Acute Code(s): F33.1 - Major depressive disorder, recurrent, moderate (2) Cocaine use disorder: Status: Acute Code(s): F14.10 - Cocaine abuse, uncomplicated (3) Anorexia nervosa, restricting type: Status: Acute Code(s): F50.01 - Anorexia nervosa, restricting type (4) Opioid use disorder, moderate, dependence: Status: Acute Code(s): F11.20 - Opioid dependence, uncomplicated Plan 37 yo female, hx of recurrent major depression, severe, restrictive anorexia and polysubstance use disorder, mainly crack, cocaine. Pt unable to maintain sobriety and is suicidal. She believes IOP would help her but is unsure. She has a strong urge to and finds her existance too painful to bear at this time. Several recent hospitalizations without much success with several losses as a result of illnesses. Plan: Re-establish regime Pt believes IOP will help. Recently required Narcan 01/28. ? Section 35 candidate Engage in milieu 02/06/23 Continue current regime Bethanechol timing changed per pt request. Participating in groups. 02/07: Pt depressed and suicidal; feels she as lost everything . Would like to not use substances. Pt reports she would like IOP, [facility] and DM services. dowel pin worker notified. 02/08 increased latuda 60mg po dinner time. Reason for continued inpatient stay Substantial Risk for: harm to self and inability to function Time Spent With Patient Time: Total time managing care of this patient today ____ minutes.
[2023-02-08] MEDS: Lurasidone HCl 40 MG TABLET PO (18:10)
[2023-02-08 21:45] VITALS: BP 119/85; PULSE 85; TEMP 36.4
[2023-02-08] MEDS: cloNIDine HCL 0.1 MG TABLET PO (21:52)
[2023-02-08] MEDS: traZODone HCL 100 MG TABLET PO (21:52)
[2023-02-08] MEDS: Zolpidem Tartrate 5 MG TABLET 10 MG PO (21:52)
[2023-02-08] MEDS: hydrOXYzine HCL 25 MG TABLET PO (21:52)
[2023-02-09 06:00] VITALS: BP 100/64; PULSE 82; RESP 16; TEMP 36.4; O2SAT 98
[2023-02-09] MEDS: Benztropine Mesylate 0.5 MG TABLET PO ×2 (09:41→21:15)
[2023-02-09] MEDS: Bethanechol Chloride 25 MG TABLET PO ×3 (09:41→18:18)
[2023-02-09] MEDS: Omeprazole 20 MG CAPSULE.DR PO (09:41)
[2023-02-09] MEDS: DULoxetine HCl 30 MG CAPSULE.DR 90 MG PO (09:41)
[2023-02-09] MEDS: Thiamine HCL 100 MG TABLET PO (09:41)
[2023-02-09] MEDS: FLUoxetine HCl 20 MG CAPSULE PO (09:41)
--- NOTE | 2023-02-09 16:17 | P.PNPSI_ITS ---
Subjective Subjective Date of Service: 02/09/23 Reason For Visit: F33.2 Major depressive disorder/F14.20 Subjective Notes: Conditional Voluntary Interim History: Pt denies any imminent plan or intent to harm herself. However, pt reports she is tired of her life, what I've become referring to eating disorder leading to substance use, to medical complications. Pt feels she has disappointed and hurt many people in her life. Pt reports that dying may bring peace to her parents as they will know she is no longer suffering. Per nursing, pt slept through the night. She has been visible on the unit. Social with peers. Medication Compliance: Yes Side effects from medications: No Attending Groups: Yes Review of Systems Review of Systems General: No fevers, malaise, unintentional weight loss HEENT: No blurred vision, diplopia. No sore throat, nasal congestion, rhinorrhea, sinus pain, ear pain Cardiovascular: No chest pain, palpitations, or leg edema Respiratory: No shortness of breath, wheezing, cough GI: +loose stool. No abdominal pain, nausea, vomiting, diarrhea, constipation, melena, hematochezia : +urinary retention. No dysuria, hematuria, increased urinary frequency MSK: No myalgia, back pain Neuro: No headaches, weakness, paresthesias Skin: No rashes or lesions Constitutional: Reports as per HPI, Reports difficulty sleeping, Reports fatigue, Reports lethargy, Reports malaise and Reports weight gain Eyes: Reports as per HPI and Reports other (when on cocaine attempt to take lashes out) Reports system reviewed and no additional complaints, except as documented and Reports as per HPI Cardiovascular: Reports as per HPI and Reports no additional cardiovascular complaints Respiratory: Reports as per HPI and Reports no additional respiratory complaints Gastrointestinal: Reports as per HPI Musculoskeletal: Reports as per HPI Skin/Breast: Reports as per HPI Reports as per HPI and Reports behavioral changes Psychiatric: Reports as per HPI, Reports abnormal sleep pattern, Reports anxiety, Reports behavioral changes, Reports change in appetite, Reports depression, Reports difficulty concentrating, Reports hopelessness, Reports irritability, Reports anhedonia and Reports suicidal ideation Endocrine: Reports as per HPI and Reports fatigue Hematologic/Lymphatic: Reports no additional hematologic/lymphatic complaints and Reports as per HPI Allergic/Immunologic: Reports no additional allergic/immunologic complaints and Reports as per HPI Mental Status Exam Mental Status Exam Narrative: Appearance: thin, casually groomed, disheveled, in NAD Behavior: cooperative Psychomotor: no overt agitation or retardation noted Speech: clear, normal rate/rhythm/volume, spontaneous TP: linear TC: feeling hopeless, self loathing Mood: hopeless Affect: flat SI: chronic, passive HI: none VH/AH: none Delusions: none Insight/judgment: fair x 2. Memory/cog: alert, oriented x 3. grossly intact to conversational testing. Diagnostics Vital Signs (24Hr): Vital Signs - 24 hr 02/08/23 21:45 02/09/23 06:00 Temperature 97.6 F 97.6 F Pulse Rate 85 82 Respiratory Rate 16 Blood Pressure 119/85 100/64 Pulse Oximetry 98 Oxygen Delivery Method Room Air Labs 02/06/23 07:12 02/05/23 07:16 Medications Medications Current Medications Acetaminophen (Acetaminophen 325 Mg Tablet) 650 mg PO Q6H PRN PRN Reason: Headache/Pain Mild Scale (1-3) Last Admin: 02/08/23 18:14 Dose: 650 mg Al Hydroxide/Mg Hydroxide (Magnesium Hydrox/Alum Hydrox 30 Ml Oral.Susp) 30 ml PO Q6H PRN PRN Reason: Heartburn/Nausea Benztropine Mesylate (Benztropine Mesylate 0.5 Mg Tablet) 0.5 mg PO BID [facility] Last Admin: 02/09/23 09:41 Dose: 0.5 mg Bethanechol Chloride (Bethanechol Chloride 25 Mg Tablet) 25 mg PO 0800,1200,1700 [facility] Last Admin: 02/09/23 12:29 Dose: 25 mg Clonidine HCl (Clonidine Hcl 0.1 Mg Tablet) 0.1 mg PO DAILY PRN; Protocol PRN Reason: anxiety Last Admin: 02/08/23 21:52 Dose: 0.1 mg Diphenhydramine HCl (Diphenhydramine Hcl 25 Mg Capsule) 25 mg PO Q4H PRN PRN Reason: Hives Duloxetine HCl (Duloxetine Hcl 30 Mg Capsule.Dr) 90 mg PO DAILY [facility] Last Admin: 02/09/23 09:41 Dose: 90 mg Fluoxetine HCl (Fluoxetine Hcl 20 Mg Capsule) 20 mg PO DAILY [facility] Last Admin: 02/09/23 09:41 Dose: 20 mg Hydroxyzine HCl (Hydroxyzine Hcl 25 Mg Tablet) 25 mg PO Q6H PRN PRN Reason: Anxiety Last Admin: 02/08/23 21:52 Dose: 25 mg Loperamide HCl (Loperamide Hcl 2 Mg Capsule) 2 mg PO Q6H PRN PRN Reason: Loose Stool Lurasidone HCl (Lurasidone Hcl 40 Mg Tablet) 40 mg PO DAILY@1730 [facility] Last Admin: 02/08/23 18:10 Dose: 40 mg Magnesium Hydroxide (Milk Of Magnesia 30 Ml Oral.Susp) 30 ml PO DAILY PRN PRN Reason: Constipation Omeprazole (Omeprazole 20 Mg Capsule.Dr) 20 mg PO DAILY@0630 [facility] Last Admin: 02/09/23 09:41 Dose: 20 mg Thiamine HCl (Thiamine Hcl 100 Mg Tablet) 100 mg PO DAILY [facility] Last Admin: 02/09/23 09:41 Dose: 100 mg Trazodone HCl (Trazodone Hcl 100 Mg Tablet) 100 mg PO BEDTIME [facility] Last Admin: 02/08/23 21:52 Dose: 100 mg Zolpidem Tartrate (Zolpidem Tartrate 5 Mg Tablet) 10 mg PO BEDTIME [facility] Last Admin: 02/08/23 21:52 Dose: 10 mg Allergies Allergies Allergy/AdvReac Type Severity Reaction Status Date / Time buspirone [From BuSpar] Allergy Swelling Verified 07/23/21 19:02 chlorpromazine Allergy Anaphylaxis Verified 07/23/21 19:02 [From Thorazine] lamotrigine [From Lamictal] Allergy Rash Verified 07/23/21 19:02 Sulfa (Sulfonamide Allergy Rash Verified 07/23/21 19:02 Antibiotics) linaclotide [From Linzess] AdvReac Abdominal Verified 07/23/21 19:02 Pain quetiapine [From Seroquel] AdvReac bad side Verified 07/23/21 19:02 effects' topiramate AdvReac Fogginess Verified 07/23/21 19:02 ziprasidone [From Geodon] AdvReac psychosis Verified 07/23/21 19:02 Assessment & Plan Assessment & Plan (1) Major depressive disorder, recurrent, moderate: Status: Acute Code(s): F33.1 - Major depressive disorder, recurrent, moderate (2) Cocaine use disorder: Status: Acute Code(s): F14.10 - Cocaine abuse, uncomplicated (3) Anorexia nervosa, restricting type: Status: Acute Code(s): F50.01 - Anorexia nervosa, restricting type (4) Opioid use disorder, moderate, dependence: Status: Acute Code(s): F11.20 - Opioid dependence, uncomplicated Plan 37 yo female, hx of recurrent major depression, severe, restrictive anorexia and polysubstance use disorder, mainly crack, cocaine. Pt unable to maintain sobriety and is suicidal. She believes IOP would help her but is unsure. She has a strong urge to and finds her existance too painful to bear at this time. Several recent hospitalizations without much success with several losses as a result of illnesses. Plan: Re-establish regime Pt believes IOP will help. Recently required Narcan 01/28. ? [employer] 35 candidate Engage in milieu 02/06/23 Continue current regime Bethanechol timing changed per pt request. Participating in groups. 02/07: Pt depressed and suicidal; feels she as lost everything . Would like to not use substances. Pt reports she would like IOP, [facility] and DM services. out of school hours care worker notified. 02/08 increased latuda 60mg po dinner time. 02/09 continue tx. Collateral information gathered from Dr. Flores, pt's outpatient psychiatrist, who reports pt struggling on and off with suicidal thoughts. Multiple medication changes. Reason for continued inpatient stay Substantial Risk for: harm to self Time Spent With Patient Time: Total time managing care of this patient today ____ minutes.
[2023-02-09] MEDS: Lurasidone HCl 20 MG TABLET 60 MG PO (18:17)
[2023-02-09 21:10] VITALS: BP 114/70; PULSE 92; RESP 18; TEMP 36.6
[2023-02-09] MEDS: Zolpidem Tartrate 5 MG TABLET 10 MG PO (21:15)
[2023-02-09] MEDS: cloNIDine HCL 0.1 MG TABLET PO (21:15)
[2023-02-09] MEDS: traZODone HCL 100 MG TABLET PO (21:15)
[2023-02-09] MEDS: hydrOXYzine HCL 25 MG TABLET PO (21:15)
[2023-02-10 06:00] VITALS: BP 113/60; PULSE 82; RESP 18; TEMP 36.4; O2SAT 96
[2023-02-10] MEDS: Bethanechol Chloride 25 MG TABLET PO ×3 (09:21→18:28)
[2023-02-10] MEDS: Thiamine HCL 100 MG TABLET PO (09:21)
[2023-02-10] MEDS: Benztropine Mesylate 0.5 MG TABLET PO ×2 (09:21→21:41)
[2023-02-10] MEDS: FLUoxetine HCl 20 MG CAPSULE PO (09:21)
[2023-02-10] MEDS: Omeprazole 20 MG CAPSULE.DR PO (09:21)
[2023-02-10] MEDS: DULoxetine HCl 30 MG CAPSULE.DR 90 MG PO (09:21)
--- NOTE | 2023-02-10 09:21 | P.PNPSI_ITS ---
Subjective Subjective Date of Service: 02/10/23 Reason For Visit: F33.2 Major depressive disorder/F14.20 Subjective Notes: Conditional Voluntary Interim History: Pt reports sleeping well. She reports having difficulty not knowing amount of calories she is consuming. She is eating mostly foods that she aware of their caloric value and composition (sugar free, low fat). She attends groups. She is taking medications. She denies any side effects. She has been visible on the unit. Social with peers. Medication Compliance: Yes Review of Systems Review of Systems General: No fevers, malaise, unintentional weight loss HEENT: No blurred vision, diplopia. No sore throat, nasal congestion, rhinorrhea, sinus pain, ear pain Cardiovascular: No chest pain, palpitations, or leg edema Respiratory: No shortness of breath, wheezing, cough GI: +loose stool. No abdominal pain, nausea, vomiting, diarrhea, constipation, melena, hematochezia : +urinary retention. No dysuria, hematuria, increased urinary frequency MSK: No myalgia, back pain Neuro: No headaches, weakness, paresthesias Skin: No rashes or lesions Constitutional: Reports as per HPI, Reports difficulty sleeping, Reports fatigue, Reports lethargy, Reports malaise and Reports weight gain Eyes: Reports as per HPI and Reports other (when on cocaine attempt to take lashes out) Reports system reviewed and no additional complaints, except as documented and Reports as per HPI Cardiovascular: Reports as per HPI and Reports no additional cardiovascular complaints Respiratory: Reports as per HPI and Reports no additional respiratory complaints Gastrointestinal: Reports as per HPI Musculoskeletal: Reports as per HPI Skin/Breast: Reports as per HPI Reports as per HPI and Reports behavioral changes Psychiatric: Reports as per HPI, Reports abnormal sleep pattern, Reports anxiety, Reports behavioral changes, Reports change in appetite, Reports depression, Reports difficulty concentrating, Reports hopelessness, Reports irritability, Reports anhedonia and Reports suicidal ideation Endocrine: Reports as per HPI and Reports fatigue Hematologic/Lymphatic: Reports no additional hematologic/lymphatic complaints and Reports as per HPI Allergic/Immunologic: Reports no additional allergic/immunologic complaints and Reports as per HPI Mental Status Exam Mental Status Exam Narrative: Appearance: thin, casually groomed, disheveled, in NAD Behavior: cooperative Psychomotor: no overt agitation or retardation noted Speech: clear, normal rate/rhythm/volume, spontaneous TP: linear TC: feeling hopeless, self loathing Mood: hopeless Affect: flat SI: chronic, passive HI: none VH/AH: none Delusions: none Insight/judgment: fair x 2. Memory/cog: alert, oriented x 3. grossly intact to conversational testing. Diagnostics Vital Signs (24Hr): Vital Signs - 24 hr 02/09/23 21:10 Temperature 98 F Pulse Rate 92 Respiratory Rate 18 Blood Pressure 114/70 Labs 02/06/23 07:12 02/05/23 07:16 Medications Medications Current Medications Acetaminophen (Acetaminophen 325 Mg Tablet) 650 mg PO Q6H PRN PRN Reason: Headache/Pain Mild Scale (1-3) Last Admin: 02/08/23 18:14 Dose: 650 mg Al Hydroxide/Mg Hydroxide (Magnesium Hydrox/Alum Hydrox 30 Ml Oral.Susp) 30 ml PO Q6H PRN PRN Reason: Heartburn/Nausea Benztropine Mesylate (Benztropine Mesylate 0.5 Mg Tablet) 0.5 mg PO BID [facility] Last Admin: 02/09/23 21:15 Dose: 0.5 mg Bethanechol Chloride (Bethanechol Chloride 25 Mg Tablet) 25 mg PO 0800,1200,1700 [facility] Last Admin: 02/09/23 18:18 Dose: 25 mg Clonidine HCl (Clonidine Hcl 0.1 Mg Tablet) 0.1 mg PO DAILY PRN; Protocol PRN Reason: anxiety Last Admin: 02/09/23 21:15 Dose: 0.1 mg Diphenhydramine HCl (Diphenhydramine Hcl 25 Mg Capsule) 25 mg PO Q4H PRN PRN Reason: Hives Duloxetine HCl (Duloxetine Hcl 30 Mg Capsule.Dr) 90 mg PO DAILY [facility] Last Admin: 02/09/23 09:41 Dose: 90 mg Fluoxetine HCl (Fluoxetine Hcl 20 Mg Capsule) 20 mg PO DAILY [facility] Last Admin: 02/09/23 09:41 Dose: 20 mg Hydroxyzine HCl (Hydroxyzine Hcl 25 Mg Tablet) 25 mg PO Q6H PRN PRN Reason: Anxiety Last Admin: 02/09/23 21:15 Dose: 25 mg Loperamide HCl (Loperamide Hcl 2 Mg Capsule) 2 mg PO Q6H PRN PRN Reason: Loose Stool Lurasidone HCl (Lurasidone Hcl 20 Mg Tablet) 60 mg PO DAILY@1730 [facility] Last Admin: 02/09/23 18:17 Dose: 60 mg Magnesium Hydroxide (Milk Of Magnesia 30 Ml Oral.Susp) 30 ml PO DAILY PRN PRN Reason: Constipation Omeprazole (Omeprazole 20 Mg Capsule.Dr) 20 mg PO DAILY@0630 [facility] Last Admin: 02/10/23 06:57 Dose: Not Given Thiamine HCl (Thiamine Hcl 100 Mg Tablet) 100 mg PO DAILY [facility] Last Admin: 02/09/23 09:41 Dose: 100 mg Trazodone HCl (Trazodone Hcl 100 Mg Tablet) 100 mg PO BEDTIME [facility] Last Admin: 02/09/23 21:15 Dose: 100 mg Zolpidem Tartrate (Zolpidem Tartrate 5 Mg Tablet) 10 mg PO BEDTIME [facility] Last Admin: 02/09/23 21:15 Dose: 10 mg Allergies Allergies Allergy/AdvReac Type Severity Reaction Status Date / Time buspirone [From BuSpar] Allergy Swelling Verified 07/23/21 19:02 chlorpromazine Allergy Anaphylaxis Verified 07/23/21 19:02 [From Thorazine] lamotrigine [From Lamictal] Allergy Rash Verified 07/23/21 19:02 Sulfa (Sulfonamide Allergy Rash Verified 07/23/21 19:02 Antibiotics) linaclotide [From Linzess] AdvReac Abdominal Verified 07/23/21 19:02 Pain quetiapine [From Seroquel] AdvReac bad side Verified 07/23/21 19:02 effects' topiramate AdvReac Fogginess Verified 07/23/21 19:02 ziprasidone [From Geodon] AdvReac psychosis Verified 07/23/21 19:02 Assessment & Plan Assessment & Plan (1) Major depressive disorder, recurrent, moderate: Status: Acute Code(s): F33.1 - Major depressive disorder, recurrent, moderate (2) Cocaine use disorder: Status: Acute Code(s): F14.10 - Cocaine abuse, uncomplicated (3) Anorexia nervosa, restricting type: Status: Acute Code(s): F50.01 - Anorexia nervosa, restricting type (4) Opioid use disorder, moderate, dependence: Status: Acute Code(s): F11.20 - Opioid dependence, uncomplicated Plan 37 yo female, hx of recurrent major depression, severe, restrictive anorexia and polysubstance use disorder, mainly crack, cocaine. Pt unable to maintain sobriety and is suicidal. She believes IOP would help her but is unsure. She has a strong urge to and finds her existance too painful to bear at this time. Several recent hospitalizations without much success with several losses as a result of illnesses. Plan: Re-establish regime Pt believes IOP will help. Recently required Narcan 01/28. ? Section 35 candidate Engage in milieu 02/06/23 Continue current regime Bethanechol timing changed per pt request. Participating in groups. 02/07: Pt depressed and suicidal; feels she as lost everything . Would like to not use substances. Pt reports she would like IOP, [facility] and DM services. cooler worker notified. 02/08 increased latuda 60mg po dinner time. 02/09 continue tx. Collateral information gathered from Dr. Flores, pt's outpatient psychiatrist, who reports pt struggling on and off with suicidal thoughts. Multiple medication changes. 02/10 continue tx. pt asks for nutricionist consult. Reason for continued inpatient stay Substantial Risk for: harm to self Time Spent With Patient Time: Total time managing care of this patient today ____ minutes.
[2023-02-10] MEDS: Lurasidone HCl 20 MG TABLET 60 MG PO (18:28)
[2023-02-10 20:43] VITALS: BP 160/98; PULSE 84; RESP 18; TEMP 37.1
[2023-02-10] MEDS: Zolpidem Tartrate 5 MG TABLET 10 MG PO (21:41)
[2023-02-10] MEDS: cloNIDine HCL 0.1 MG TABLET PO (21:42)
[2023-02-10] MEDS: traZODone HCL 100 MG TABLET PO (21:42)
[2023-02-10] MEDS: hydrOXYzine HCL 25 MG TABLET PO (21:42)
[2023-02-11 06:00] VITALS: BP 117/77; PULSE 84; RESP 16; TEMP 36.2; O2SAT 96
--- NOTE | 2023-02-11 08:42 | P.PNPSI_ITS ---
Subjective Subjective Date of Service: 02/11/23 Reason For Visit: F33.2 Major depressive disorder/F14.20 Subjective Notes: Conditional Voluntary Interim History: Pt reports sleeping well. Pt denies any plan or intent to harm herself but not much to look forward in her life. Pt asks when she can be discharged. SW working on referrals and safety planning. Pt has been visible on the unit. Social with select peers. Pt's blood pressure was elevated which not her usual, only when use of cocaine. utox ordered. Medication Compliance: Yes Review of Systems Review of Systems General: No fevers, malaise, unintentional weight loss HEENT: No blurred vision, diplopia. No sore throat, nasal congestion, rhinorrhea, sinus pain, ear pain Cardiovascular: No chest pain, palpitations, or leg edema Respiratory: No shortness of breath, wheezing, cough GI: +loose stool. No abdominal pain, nausea, vomiting, diarrhea, constipation, melena, hematochezia : +urinary retention. No dysuria, hematuria, increased urinary frequency MSK: No myalgia, back pain Neuro: No headaches, weakness, paresthesias Skin: No rashes or lesions Constitutional: Reports as per HPI, Reports difficulty sleeping, Reports fatigue, Reports lethargy, Reports malaise and Reports weight gain Eyes: Reports as per HPI and Reports other (when on cocaine attempt to take lashes out) Reports system reviewed and no additional complaints, except as documented and Reports as per HPI Cardiovascular: Reports as per HPI and Reports no additional cardiovascular complaints Respiratory: Reports as per HPI and Reports no additional respiratory complaints Gastrointestinal: Reports as per HPI Musculoskeletal: Reports as per HPI Skin/Breast: Reports as per HPI Reports as per HPI and Reports behavioral changes Psychiatric: Reports as per HPI, Reports abnormal sleep pattern, Reports anxiety, Reports behavioral changes, Reports change in appetite, Reports depression, Reports difficulty concentrating, Reports hopelessness, Reports irritability, Reports anhedonia and Reports suicidal ideation Endocrine: Reports as per HPI and Reports fatigue Hematologic/Lymphatic: Reports no additional hematologic/lymphatic complaints and Reports as per HPI Allergic/Immunologic: Reports no additional allergic/immunologic complaints and Reports as per HPI Mental Status Exam Mental Status Exam Narrative: Appearance: thin, casually groomed, disheveled, in NAD Behavior: cooperative Psychomotor: no overt agitation or retardation noted Speech: clear, normal rate/rhythm/volume, spontaneous TP: linear TC: feeling hopeless, self loathing Mood: hopeless Affect: flat SI: chronic, passive HI: none VH/AH: none Delusions: none Insight/judgment: fair x 2. Memory/cog: alert, oriented x 3. grossly intact to conversational testing. Diagnostics Vital Signs (24Hr): Vital Signs - 24 hr 02/10/23 20:43 Temperature 98.7 F Pulse Rate 84 Respiratory Rate 18 Blood Pressure 160/98 H Labs 02/06/23 07:12 02/05/23 07:16 Medications Medications Current Medications Acetaminophen (Acetaminophen 325 Mg Tablet) 650 mg PO Q6H PRN PRN Reason: Headache/Pain Mild Scale (1-3) Last Admin: 02/08/23 18:14 Dose: 650 mg Al Hydroxide/Mg Hydroxide (Magnesium Hydrox/Alum Hydrox 30 Ml Oral.Susp) 30 ml PO Q6H PRN PRN Reason: Heartburn/Nausea Benztropine Mesylate (Benztropine Mesylate 0.5 Mg Tablet) 0.5 mg PO BID [facility] Last Admin: 02/10/23 21:41 Dose: 0.5 mg Bethanechol Chloride (Bethanechol Chloride 25 Mg Tablet) 25 mg PO 0800,1200,1700 [facility] Last Admin: 02/10/23 18:28 Dose: 25 mg Clonidine HCl (Clonidine Hcl 0.1 Mg Tablet) 0.1 mg PO DAILY PRN; Protocol PRN Reason: anxiety Last Admin: 02/10/23 21:42 Dose: 0.1 mg Diphenhydramine HCl (Diphenhydramine Hcl 25 Mg Capsule) 25 mg PO Q4H PRN PRN Reason: Hives Duloxetine HCl (Duloxetine Hcl 30 Mg Capsule.Dr) 90 mg PO DAILY [facility] Last Admin: 02/10/23 09:21 Dose: 90 mg Fluoxetine HCl (Fluoxetine Hcl 20 Mg Capsule) 20 mg PO DAILY [facility] Last Admin: 02/10/23 09:21 Dose: 20 mg Hydroxyzine HCl (Hydroxyzine Hcl 25 Mg Tablet) 25 mg PO Q6H PRN PRN Reason: Anxiety Last Admin: 02/10/23 21:42 Dose: 25 mg Loperamide HCl (Loperamide Hcl 2 Mg Capsule) 2 mg PO Q6H PRN PRN Reason: Loose Stool Lurasidone HCl (Lurasidone Hcl 20 Mg Tablet) 60 mg PO DAILY@1730 [facility] Last Admin: 02/10/23 18:28 Dose: 60 mg Magnesium Hydroxide (Milk Of Magnesia 30 Ml Oral.Susp) 30 ml PO DAILY PRN PRN Reason: Constipation Omeprazole (Omeprazole 20 Mg Capsule.Dr) 20 mg PO DAILY@0630 [facility] Last Admin: 02/11/23 06:09 Dose: Not Given Thiamine HCl (Thiamine Hcl 100 Mg Tablet) 100 mg PO DAILY [facility] Last Admin: 02/10/23 09:21 Dose: 100 mg Trazodone HCl (Trazodone Hcl 100 Mg Tablet) 100 mg PO BEDTIME [facility] Last Admin: 02/10/23 21:42 Dose: 100 mg Zolpidem Tartrate (Zolpidem Tartrate 5 Mg Tablet) 10 mg PO BEDTIME [facility] Last Admin: 02/10/23 21:41 Dose: 10 mg Allergies Allergies Allergy/AdvReac Type Severity Reaction Status Date / Time buspirone [From BuSpar] Allergy Swelling Verified 07/23/21 19:02 chlorpromazine Allergy Anaphylaxis Verified 07/23/21 19:02 [From Thorazine] lamotrigine [From Lamictal] Allergy Rash Verified 07/23/21 19:02 Sulfa (Sulfonamide Allergy Rash Verified 07/23/21 19:02 Antibiotics) linaclotide [From Linzess] AdvReac Abdominal Verified 07/23/21 19:02 Pain quetiapine [From Seroquel] AdvReac bad side Verified 07/23/21 19:02 effects' topiramate AdvReac Fogginess Verified 07/23/21 19:02 ziprasidone [From Geodon] AdvReac psychosis Verified 07/23/21 19:02 Assessment & Plan Assessment & Plan (1) Major depressive disorder, recurrent, moderate: Status: Acute Code(s): F33.1 - Major depressive disorder, recurrent, moderate (2) Cocaine use disorder: Status: Acute Code(s): F14.10 - Cocaine abuse, uncomplicated (3) Anorexia nervosa, restricting type: Status: Acute Code(s): F50.01 - Anorexia nervosa, restricting type (4) Opioid use disorder, moderate, dependence: Status: Acute Code(s): F11.20 - Opioid dependence, uncomplicated Plan 37 yo female, hx of recurrent major depression, severe, restrictive anorexia and polysubstance use disorder, mainly crack, cocaine. Pt unable to maintain sobriety and is suicidal. She believes IOP would help her but is unsure. She has a strong urge to and finds her existance too painful to bear at this time. Several recent hospitalizations without much success with several losses as a result of illnesses. Plan: Re-establish regime Pt believes IOP will help. Recently required Narcan 01/28. ? Section 35 candidate Engage in milieu 02/06/23 Continue current regime Bethanechol timing changed per pt request. Participating in groups. 02/07: Pt depressed and suicidal; feels she as lost everything . Would like to not use substances. Pt reports she would like IOP, [facility] and DM services. family service worker notified. 02/08 increased latuda 60mg po dinner time. 02/09 continue tx. Collateral information gathered from Dr. Flores, pt's outpatient psychiatrist, who reports pt struggling on and off with suicidal thoughts. Multiple medication changes. 02/10 continue tx. pt asks for swing frame grinder operator consult. 02/11 continue tx. Reason for continued inpatient stay Substantial Risk for: harm to self Time Spent With Patient Time: Total time managing care of this patient today ____ minutes.
[2023-02-11] MEDS: DULoxetine HCl 30 MG CAPSULE.DR 90 MG PO (09:56)
[2023-02-11] MEDS: Benztropine Mesylate 0.5 MG TABLET PO ×2 (09:57→20:47)
[2023-02-11] MEDS: Thiamine HCL 100 MG TABLET PO (09:57)
[2023-02-11] MEDS: Omeprazole 20 MG CAPSULE.DR PO (09:57)
[2023-02-11] MEDS: FLUoxetine HCl 20 MG CAPSULE PO (09:57)
[2023-02-11] MEDS: Bethanechol Chloride 25 MG TABLET PO ×3 (09:57→18:19)
--- NOTE | 2023-02-11 13:49 | MHC.CLN ---
NUTRITION CONSULT FOR ANOREXIA AND FOOD CHOICES. PATIENT ASKED THIS CAPSULE INSPECTOR FOR CALORIE INFORMATION FOR COTTAGE CHEESE AND SUGAR FREE PUDDING. PROVIDED THAT INFORMATION PLUS CALORIES FOR YOGURT AND SUGAR FREE ICE CREAM. COPY TO NURSE AND PATIENT. STATED THAT YOGURT WAS TOO HIGH IN CALORIES. REPORTED THAT HAD FEEDING TUBE X 6 MONTHS AND HAS BEEN OUT FOR 2 MONTHS. VERY LIMITED FOOD SELECTIONS. WRITES IN FOOD CHOICES. DINING SERVICES AWARE. ENCOURAGE INTAKE ABLE.
[2023-02-11] MEDS: Lurasidone HCl 20 MG TABLET 60 MG PO (18:18)
[2023-02-11] MEDS: cloNIDine HCL 0.1 MG TABLET PO (20:47)
[2023-02-11] MEDS: Zolpidem Tartrate 5 MG TABLET 10 MG PO (20:47)
[2023-02-11] MEDS: hydrOXYzine HCL 25 MG TABLET PO (20:47)
[2023-02-11] MEDS: traZODone HCL 100 MG TABLET PO (20:48)
[2023-02-11 21:00] VITALS: BP 109/70; PULSE 68; RESP 18; TEMP 36.4; O2SAT 99
[2023-02-12] MEDS: Bethanechol Chloride 25 MG TABLET PO ×3 (08:50→18:55)
[2023-02-12] MEDS: Omeprazole 20 MG CAPSULE.DR PO (08:50)
[2023-02-12] MEDS: DULoxetine HCl 30 MG CAPSULE.DR 90 MG PO (08:50)
[2023-02-12] MEDS: Thiamine HCL 100 MG TABLET PO (08:50)
[2023-02-12] MEDS: Benztropine Mesylate 0.5 MG TABLET PO ×2 (08:50→21:35)
[2023-02-12] MEDS: FLUoxetine HCl 20 MG CAPSULE PO (08:50)
[2023-02-12 08:53] VITALS: RESP 16
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
[2023-02-12 13:23] VITALS: BP 106/57; PULSE 68
[2023-02-12 14:52] LABS: Amphetamine Screen Urine Not Detected (Not Detect); Barbiturates, Urine Not Detected (Not Detect); Benzodiazepines Screen Urine Not Detected (Not Detect); Cannabinoid Screen Urine Not Detected (Not Detect); Cocaine Screen Urine Not Detected (Not Detect); Fentanyl, urine POSITIVE (Not Detect); Opiate Screen Urine Not Detected (Not Detect); Phencyclidine Screen Urine Not Detected (Not Detect)
[2023-02-12] MEDS: Lurasidone HCl 20 MG TABLET 60 MG PO (18:55)
[2023-02-12 21:30] VITALS: BP 117/73; PULSE 70; TEMP 35.9; O2SAT 100
[2023-02-12] MEDS: Zolpidem Tartrate 5 MG TABLET 10 MG PO (21:35)
[2023-02-12] MEDS: cloNIDine HCL 0.1 MG TABLET PO (21:35)
[2023-02-12] MEDS: traZODone HCL 100 MG TABLET PO (21:35)
[2023-02-13] MEDS: Omeprazole 20 MG CAPSULE.DR PO (08:28)
[2023-02-13] MEDS: FLUoxetine HCl 20 MG CAPSULE PO (08:28)
[2023-02-13] MEDS: Bethanechol Chloride 25 MG TABLET PO ×3 (08:28→18:43)
[2023-02-13] MEDS: DULoxetine HCl 30 MG CAPSULE.DR 90 MG PO (08:29)
[2023-02-13] MEDS: Benztropine Mesylate 0.5 MG TABLET PO ×2 (08:29→22:11)
[2023-02-13] MEDS: Thiamine HCL 100 MG TABLET PO (08:29)
[2023-02-13 08:44] VITALS: BP 109/64; PULSE 74; RESP 16; TEMP 36.1; O2SAT 97
--- NOTE | 2023-02-13 12:33 | HO.PSYCHPN ---
Subjective Subjective Date of Service: 02/13/23 Reason For Visit: F33.2 Major depressive disorder/F14.20 Subjective Notes: Conditional Voluntary Interim History: The nursing staff reported the patient was been irritated since she needed to have a U tox since she had episodes of high blood pressure possibly due to cocaine abuse. Came back negative. On interview the patient denies new symptoms she feels okay, compliant with medications. Mental Status Exam Mental Status Exam Patient Appearance: Well Grooomed and Appropriate Patient Orientation: Person and Situation Level of Consciousness: Awake and Appropriate Patient Behavior: Guarded and Passive Mood Description: Calm Affect Description: Constricted Patient Cognition Impaired: Yes Ability to Follow Directions: Good Speech Pattern: Clear Hallucinations: None Delusions: Not Present Thought Process: Distracted and Linear Thought Content: positive for [place] and positive for Circumstantial Judgement: Fair Diagnostics Vital Signs (24Hr): Vital Signs - 24 hr 02/12/23 13:23 02/12/23 21:30 02/13/23 08:44 Temperature 96.7 F L 97 F Pulse Rate 68 70 74 Respiratory Rate 16 Blood Pressure 106/57 L 117/73 109/64 Pulse Oximetry 100 97 Oxygen Delivery Method Room Air Room Air Labs 02/06/23 07:12 02/05/23 07:16 Labs: Laboratory Results - last 48 hr 02/12/23 Unknown Urine Opiates Screen Not Detected Urine Fentanyl Screen POSITIVE H Ur Barbiturates Screen Not Detected Ur Phencyclidine Scrn Not Detected Ur Amphetamines Screen Not Detected U Benzodiazepines Scrn Not Detected Urine Cocaine Screen Not Detected U Marijuana (THC) Screen Not Detected Medications Medications Current Medications Acetaminophen (Acetaminophen 325 Mg Tablet) 650 mg PO Q6H PRN PRN Reason: Headache/Pain Mild Scale (1-3) Last Admin: 02/08/23 18:14 Dose: 650 mg Al Hydroxide/Mg Hydroxide (Magnesium Hydrox/Alum Hydrox 30 Ml Oral.Susp) 30 ml PO Q6H PRN PRN Reason: Heartburn/Nausea Benztropine Mesylate (Benztropine Mesylate 0.5 Mg Tablet) 0.5 mg PO BID [facility] Last Admin: 02/13/23 08:29 Dose: 0.5 mg Bethanechol Chloride (Bethanechol Chloride 25 Mg Tablet) 25 mg PO 0800,1200,1700 [facility] Last Admin: 02/13/23 08:28 Dose: 25 mg Clonidine HCl (Clonidine Hcl 0.1 Mg Tablet) 0.1 mg PO DAILY PRN; Protocol PRN Reason: anxiety Last Admin: 02/12/23 21:35 Dose: 0.1 mg Diphenhydramine HCl (Diphenhydramine Hcl 25 Mg Capsule) 25 mg PO Q4H PRN PRN Reason: Hives Duloxetine HCl (Duloxetine Hcl 30 Mg Capsule.Dr) 90 mg PO DAILY [facility] Last Admin: 02/13/23 08:29 Dose: 90 mg Fluoxetine HCl (Fluoxetine Hcl 20 Mg Capsule) 20 mg PO DAILY [facility] Last Admin: 02/13/23 08:28 Dose: 20 mg Hydroxyzine HCl (Hydroxyzine Hcl 25 Mg Tablet) 25 mg PO Q6H PRN PRN Reason: Anxiety Last Admin: 02/11/23 20:47 Dose: 25 mg Loperamide HCl (Loperamide Hcl 2 Mg Capsule) 2 mg PO Q6H PRN PRN Reason: Loose Stool Lurasidone HCl (Lurasidone Hcl 20 Mg Tablet) 60 mg PO DAILY@1730 [facility] Last Admin: 02/12/23 18:55 Dose: 60 mg Magnesium Hydroxide (Milk Of Magnesia 30 Ml Oral.Susp) 30 ml PO DAILY PRN PRN Reason: Constipation Omeprazole (Omeprazole 20 Mg Capsule.Dr) 20 mg PO DAILY@0630 [facility] Last Admin: 02/13/23 08:28 Dose: 20 mg Thiamine HCl (Thiamine Hcl 100 Mg Tablet) 100 mg PO DAILY [facility] Last Admin: 02/13/23 08:29 Dose: 100 mg Trazodone HCl (Trazodone Hcl 100 Mg Tablet) 100 mg PO BEDTIME [facility] Last Admin: 02/12/23 21:35 Dose: 100 mg Zolpidem Tartrate (Zolpidem Tartrate 5 Mg Tablet) 10 mg PO BEDTIME [facility] Last Admin: 02/12/23 21:35 Dose: 10 mg Allergies Allergies Allergy/AdvReac Type Severity Reaction Status Date / Time buspirone [From BuSpar] Allergy Swelling Verified 07/23/21 19:02 chlorpromazine Allergy Anaphylaxis Verified 07/23/21 19:02 [From Thorazine] lamotrigine [From Lamictal] Allergy Rash Verified 07/23/21 19:02 Sulfa (Sulfonamide Allergy Rash Verified 07/23/21 19:02 Antibiotics) linaclotide [From Linzess] AdvReac Abdominal Verified 07/23/21 19:02 Pain quetiapine [From Seroquel] AdvReac bad side Verified 07/23/21 19:02 effects' topiramate AdvReac Fogginess Verified 07/23/21 19:02 ziprasidone [From Geodon] AdvReac psychosis Verified 07/23/21 19:02 Assessment & Plan Assessment & Plan (1) Major depressive disorder, recurrent, moderate: Status: Acute Code(s): F33.1 - Major depressive disorder, recurrent, moderate (2) Cocaine use disorder: Status: Acute Code(s): F14.10 - Cocaine abuse, uncomplicated (3) Anorexia nervosa, restricting type: Status: Acute Code(s): F50.01 - Anorexia nervosa, restricting type (4) Opioid use disorder, moderate, dependence: Status: Acute Code(s): F11.20 - Opioid dependence, uncomplicated Plan 37 yo female, hx of recurrent major depression, severe, restrictive anorexia and polysubstance use disorder, mainly crack, cocaine. Pt unable to maintain sobriety and is suicidal. She believes IOP would help her but is unsure. She has a strong urge to and finds her existance too painful to bear at this time. Several recent hospitalizations without much success with several losses as a result of illnesses. Plan: Re-establish regime Pt believes IOP will help. Recently required Narcan 01/28. ? Section 35 candidate Engage in milieu 02/06/23 Continue current regime Bethanechol timing changed per pt request. Participating in groups. 02/07: Pt depressed and suicidal; feels she as lost everything . Would like to not use substances. Pt reports she would like IOP, [facility] and [facility] services. grab jack worker notified. 02/08 increased latuda 60mg po dinner time. 02/09 continue tx. Collateral information gathered from Dr. Flores, pt's outpatient psychiatrist, who reports pt struggling on and off with suicidal thoughts. Multiple medication changes. 02/10 continue tx. pt asks for cmm inspector consult. 02/11 continue tx. 02/12 continue treatment 02/13 continue same treatment Reason for continued inpatient stay Substantial Risk for: inability to function, rapid decompensation and med/psych decompensation Time Spent With Patient Time: Total time managing care of this patient today _20___ minutes.
[2023-02-13] MEDS: Lurasidone HCl 20 MG TABLET 60 MG PO (18:53)
[2023-02-13 22:00] VITALS: BP 109/71; PULSE 74; TEMP 36.3; O2SAT 100
[2023-02-13] MEDS: diphenhydrAMINE HCL 25 MG CAPSULE PO (22:11)
[2023-02-13] MEDS: Zolpidem Tartrate 5 MG TABLET 10 MG PO (22:11)
[2023-02-13] MEDS: traZODone HCL 100 MG TABLET PO (22:11)
[2023-02-13] MEDS: cloNIDine HCL 0.1 MG TABLET PO (22:14)
[2023-02-14] MEDS: Bethanechol Chloride 25 MG TABLET PO ×3 (09:24→18:35)
[2023-02-14] MEDS: Omeprazole 20 MG CAPSULE.DR PO (09:24)
[2023-02-14] MEDS: FLUoxetine HCl 20 MG CAPSULE PO (09:24)
[2023-02-14] MEDS: DULoxetine HCl 30 MG CAPSULE.DR 90 MG PO (09:24)
[2023-02-14] MEDS: Benztropine Mesylate 0.5 MG TABLET PO ×2 (09:24→20:26)
[2023-02-14] MEDS: Thiamine HCL 100 MG TABLET PO (09:24)
--- NOTE | 2023-02-14 09:45 | P.PNPSI_ITS ---
Subjective Subjective Date of Service: 02/14/23 Reason For Visit: F33.2 Major depressive disorder/F14.20 Interim History: met with patient; discussed with team; reviewed progress notes Discussed patient's site history over the past year, detox is, CSS, TSS, medical admissions. Discussed her break-up with her boyfriend however the to still live together and he remains very supportive and a close confident not. Patient said that it has been very difficult struggling with eating disorder and that she started losing hope. Did not want to have anymore medical procedures; does not want to cause anyone else distress with her suicide so has resisted; still will engage in risky drug use, not caring about the consequences. At this point patient denies any SI and is focused on getting sober. She says she does not want to use any more and is trying hard to become sober, wanting to go to an [facility]. She then wants to go to [facility] which she finds very therapeutic. Feels that medications are working well enough, including Prozac. Mental Status Exam Mental Status Exam Narrative: Pt is alert and oriented; behavior is cooperative, friendly and calm; patient is not in distress; dressed in casual attire with unkempt hair but adequate hygiene; mood is described as okay and affect congruent; eye contact appropriate; Speech is normal rate, volume and prosody and not pressured; no psychomotor agitation/retardation present; thought process is organized and goal directed; Thought content is on tx, getting sober; otherwise pertinent to relevant topics; some continued, chronic unhealthy/delusional thinking about her eating disorder but otherwise, no paranoid ideations or grandiosity; denies any SI/HI. There is no evidence of perceptual disturbance. Patients insight and judgment are impaired but at baseline and adequate Diagnostics Vital Signs (24Hr): Vital Signs - 24 hr 02/13/23 22:00 Temperature 97.4 F Pulse Rate 74 Blood Pressure 109/71 Pulse Oximetry 100 Oxygen Delivery Method Room Air Labs 02/06/23 07:12 02/05/23 07:16 Labs: Laboratory Results - last 48 hr 02/12/23 Unknown Urine Opiates Screen Not Detected Urine Fentanyl Screen POSITIVE H Ur Barbiturates Screen Not Detected Ur Phencyclidine Scrn Not Detected Ur Amphetamines Screen Not Detected U Benzodiazepines Scrn Not Detected Urine Cocaine Screen Not Detected U Marijuana (THC) Screen Not Detected Medications Medications Current Medications Acetaminophen (Acetaminophen 325 Mg Tablet) 650 mg PO Q6H PRN PRN Reason: Headache/Pain Mild Scale (1-3) Last Admin: 02/08/23 18:14 Dose: 650 mg Al Hydroxide/Mg Hydroxide (Magnesium Hydrox/Alum Hydrox 30 Ml Oral.Susp) 30 ml PO Q6H PRN PRN Reason: Heartburn/Nausea Benztropine Mesylate (Benztropine Mesylate 0.5 Mg Tablet) 0.5 mg PO BID [facility] Last Admin: 02/14/23 09:24 Dose: 0.5 mg Bethanechol Chloride (Bethanechol Chloride 25 Mg Tablet) 25 mg PO 0800,1200,1700 [facility] Last Admin: 02/14/23 09:24 Dose: 25 mg Clonidine HCl (Clonidine Hcl 0.1 Mg Tablet) 0.1 mg PO DAILY PRN; Protocol PRN Reason: anxiety Last Admin: 02/13/23 22:14 Dose: 0.1 mg Diphenhydramine HCl (Diphenhydramine Hcl 25 Mg Capsule) 25 mg PO Q4H PRN PRN Reason: Hives Last Admin: 02/13/23 22:11 Dose: 25 mg Duloxetine HCl (Duloxetine Hcl 30 Mg Capsule.) 90 mg PO DAILY [facility] Last Admin: 02/14/23 09:24 Dose: 90 mg Fluoxetine HCl (Fluoxetine Hcl 20 Mg Capsule) 20 mg PO DAILY [facility] Last Admin: 02/14/23 09:24 Dose: 20 mg Hydroxyzine HCl (Hydroxyzine Hcl 25 Mg Tablet) 25 mg PO Q6H PRN PRN Reason: Anxiety Last Admin: 02/11/23 20:47 Dose: 25 mg Loperamide HCl (Loperamide Hcl 2 Mg Capsule) 2 mg PO Q6H PRN PRN Reason: Loose Stool Lurasidone HCl (Lurasidone Hcl 20 Mg Tablet) 60 mg PO DAILY@1730 [facility] Last Admin: 02/13/23 18:53 Dose: 60 mg Magnesium Hydroxide (Milk Of Magnesia 30 Ml Oral.Susp) 30 ml PO DAILY PRN PRN Reason: Constipation Omeprazole (Omeprazole 20 Mg Capsule.Dr) 20 mg PO DAILY@0630 [facility] Last Admin: 02/14/23 09:24 Dose: 20 mg Thiamine HCl (Thiamine Hcl 100 Mg Tablet) 100 mg PO DAILY [facility] Last Admin: 02/14/23 09:24 Dose: 100 mg Trazodone HCl (Trazodone Hcl 100 Mg Tablet) 100 mg PO BEDTIME [facility] Last Admin: 02/13/23 22:11 Dose: 100 mg Zolpidem Tartrate (Zolpidem Tartrate 5 Mg Tablet) 10 mg PO BEDTIME [facility] Last Admin: 02/13/23 22:11 Dose: 10 mg Allergies Allergies Allergy/AdvReac Type Severity Reaction Status Date / Time buspirone [From BuSpar] Allergy Swelling Verified 07/23/21 19:02 chlorpromazine Allergy Anaphylaxis Verified 07/23/21 19:02 [From Thorazine] lamotrigine [From Lamictal] Allergy Rash Verified 07/23/21 19:02 Sulfa (Sulfonamide Allergy Rash Verified 07/23/21 19:02 Antibiotics) linaclotide [From Linzess] AdvReac Abdominal Verified 07/23/21 19:02 Pain quetiapine [From Seroquel] AdvReac bad side Verified 07/23/21 19:02 effects' topiramate AdvReac Fogginess Verified 07/23/21 19:02 ziprasidone [From Geodon] AdvReac psychosis Verified 07/23/21 19:02 Assessment & Plan Assessment & Plan (1) Major depressive disorder, recurrent, moderate: Status: Acute Code(s): F33.1 - Major depressive disorder, recurrent, moderate (2) Cocaine use disorder: Status: Acute Code(s): F14.10 - Cocaine abuse, uncomplicated (3) Anorexia nervosa, restricting type: Status: Acute Code(s): F50.01 - Anorexia nervosa, restricting type (4) Opioid use disorder, moderate, dependence: Status: Acute Code(s): F11.20 - Opioid dependence, uncomplicated Plan 37 yo female, hx of recurrent major depression, severe, restrictive anorexia and polysubstance use disorder, mainly crack, cocaine. Pt unable to maintain sobriety and is suicidal. She believes IOP would help her but is unsure. She has a strong urge to and finds her existance too painful to bear at this time. Several recent hospitalizations without much success with several losses as a result of illnesses. Plan: Re-establish regime Pt believes IOP will help. Recently required Narcan 01/28. ? Section 35 candidate Engage in milieu 02/06/23 Continue current regime Bethanechol timing changed per pt request. Participating in groups. 02/07: Pt depressed and suicidal; feels she as lost everything . Would like to not use substances. Pt reports she would like [facility], [facility] and [facility] services. print finishing worker notified. 02/08 increased latuda 60mg po dinner time. 02/09 continue tx. Collateral information gathered from Dr. Flores, pt's outpatient psychiatrist, who reports pt struggling on and off with suicidal thoughts. Multiple medication changes. 02/10 continue tx. pt asks for covering machine operator helper consult. 02/11 continue tx. 02/12 continue treatment 02/13 continue same treatment 02/14 patient is at baseline. Still trying to be hopeful despite feeling that it is harder to do so but no SI and future oriented, wanting to pursue sobriety and then go to eating disorder clinic. Feels that medications are adequate. Patient is trying to get into partial program at [facility]. Hopes to discharge soon; feels safe; says will wait at home for opening spot. Although patient remains vulnerable to relapse and depressive thoughts, these are chronic strugg les for her.. She is at baseline Patient educated on: diagnosis, medication risk/benefits and substance abuse Informed Consent: understands Reason for continued inpatient stay Substantial Risk for: stable for discharge Time Spent With Patient Time: Total time managing care of this patient today ____ minutes.
[2023-02-14] MEDS: diphenhydrAMINE HCL 25 MG CAPSULE PO (11:55)
[2023-02-14 18:00] VITALS: BP 107/62; PULSE 72; TEMP 36.3; O2SAT 100
[2023-02-14] MEDS: Lurasidone HCl 20 MG TABLET 60 MG PO (18:35)
--- NOTE | 2023-02-14 18:51 | PC.NURSE ---
Patient was in the patients' kitchen and was [id number] with another patient who said I'm getting fat here , Zuleyma replied Yeah, I'm getting fat too .
[2023-02-14] MEDS: traZODone HCL 100 MG TABLET PO (20:27)
[2023-02-14] MEDS: Zolpidem Tartrate 5 MG TABLET 10 MG PO (20:27)
[2023-02-14] MEDS: hydrOXYzine HCL 25 MG TABLET PO (20:27)
[2023-02-14] MEDS: cloNIDine HCL 0.1 MG TABLET PO (20:30)
[2023-02-15] MEDS: Bethanechol Chloride 25 MG TABLET PO ×3 (08:34→18:22)
[2023-02-15] MEDS: FLUoxetine HCl 20 MG CAPSULE PO (08:34)
[2023-02-15] MEDS: Benztropine Mesylate 0.5 MG TABLET PO ×2 (08:34→21:59)
[2023-02-15] MEDS: Thiamine HCL 100 MG TABLET PO (08:34)
[2023-02-15] MEDS: Omeprazole 20 MG CAPSULE.DR PO (08:34)
[2023-02-15] MEDS: DULoxetine HCl 30 MG CAPSULE.DR 90 MG PO (08:34)
[2023-02-15 08:38] VITALS: RESP 16
--- NOTE | 2023-02-15 10:08 | HO.PSYCHPN ---
Subjective Subjective Date of Service: 02/15/23 Reason For Visit: F33.2 Major depressive disorder/F14.20 Interim History: met with patient; discussed with team Patient anxious about discharged since learning that IOP is actually in person. Patient says she has avoided being in person at anything for over a year and became emotional at the thought of having to put herself together in a presentable way. Patient struggles with thinking that she is overweight however is continues to try and intellectually challenged this chronic thought disorder. Patient was able to discuss her feelings and the origins of this struggle, on going back to chronic anxiety of not being loved/level, dating back to childhood. Patient had insight to know that pushing herself to overcome these struggles and participate in treatment is a significant part of recovery. She also has the insight to know that this struggle is a pervasive healing condition type with struggle and that she will be surrounded by people working to overcome the same issue. Patient remains without any SI and patient feels safe to return home and prepare for IOP. Mental Status Exam Mental Status Exam Narrative: Pt is alert and oriented; behavior is cooperative, friendly, intermittently tearful but calm; patient not in distress; dressed in casual attire with unkempt hair but adequate hygiene; mood is described as okay and affect congruent; eye contact appropriate; Speech is normal rate, volume and prosody and not pressured; no psychomotor agitation/retardation present; thought process is organized and goal directed; Thought content is on tx, getting sober, overcoming unhealthy thoughts about eating disorder; otherwise pertinent to relevant topics; some continued, chronic intermittent unhealthy/delusional thinking about her eating disorder (thinking she is overweight) but otherwise, no paranoid ideations or grandiosity; denies any SI/HI. There is no evidence of perceptual disturbance. Patients insight and judgment are impaired but at baseline and adequate Diagnostics Vital Signs (24Hr): Vital Signs - 24 hr 02/14/23 18:00 02/15/23 08:38 Temperature 97.4 F Pulse Rate 72 Respiratory Rate 16 Blood Pressure 107/62 Pulse Oximetry 100 Oxygen Delivery Method Room Air Labs 02/06/23 07:12 02/05/23 07:16 Medications Medications Current Medications Acetaminophen (Acetaminophen 325 Mg Tablet) 650 mg PO Q6H PRN PRN Reason: Headache/Pain Mild Scale (1-3) Last Admin: 02/08/23 18:14 Dose: 650 mg Al Hydroxide/Mg Hydroxide (Magnesium Hydrox/Alum Hydrox 30 Ml Oral.Susp) 30 ml PO Q6H PRN PRN Reason: Heartburn/Nausea Benztropine Mesylate (Benztropine Mesylate 0.5 Mg Tablet) 0.5 mg PO BID [facility] Last Admin: 02/15/23 08:34 Dose: 0.5 mg Bethanechol Chloride (Bethanechol Chloride 25 Mg Tablet) 25 mg PO 0800,1200,1700 [facility] Last Admin: 02/15/23 08:34 Dose: 25 mg Clonidine HCl (Clonidine Hcl 0.1 Mg Tablet) 0.1 mg PO DAILY PRN; Protocol PRN Reason: anxiety Last Admin: 02/14/23 20:30 Dose: 0.1 mg Diphenhydramine HCl (Diphenhydramine Hcl 25 Mg Capsule) 25 mg PO Q4H PRN PRN Reason: Hives Last Admin: 02/14/23 11:55 Dose: 25 mg Duloxetine HCl (Duloxetine Hcl 30 Mg Capsule.) 90 mg PO DAILY [facility] Last Admin: 02/15/23 08:34 Dose: 90 mg Fluoxetine HCl (Fluoxetine Hcl 20 Mg Capsule) 20 mg PO DAILY [facility] Last Admin: 02/15/23 08:34 Dose: 20 mg Hydroxyzine HCl (Hydroxyzine Hcl 25 Mg Tablet) 25 mg PO Q6H PRN PRN Reason: Anxiety Last Admin: 02/14/23 20:27 Dose: 25 mg Loperamide HCl (Loperamide Hcl 2 Mg Capsule) 2 mg PO Q6H PRN PRN Reason: Loose Stool Lurasidone HCl (Lurasidone Hcl 20 Mg Tablet) 60 mg PO DAILY@1730 [facility] Last Admin: 02/14/23 18:35 Dose: 60 mg Magnesium Hydroxide (Milk Of Magnesia 30 Ml Oral.Susp) 30 ml PO DAILY PRN PRN Reason: Constipation Omeprazole (Omeprazole 20 Mg Capsule.) 20 mg PO DAILY@0630 [facility] Last Admin: 02/15/23 08:34 Dose: 20 mg Thiamine HCl (Thiamine Hcl 100 Mg Tablet) 100 mg PO DAILY [facility] Last Admin: 02/15/23 08:34 Dose: 100 mg Trazodone HCl (Trazodone Hcl 100 Mg Tablet) 100 mg PO BEDTIME [facility] Last Admin: 02/14/23 20:27 Dose: 100 mg Allergies Allergies Allergy/AdvReac Type Severity Reaction Status Date / Time buspirone [From BuSpar] Allergy Swelling Verified 07/23/21 19:02 chlorpromazine Allergy Anaphylaxis Verified 07/23/21 19:02 [From Thorazine] lamotrigine [From Lamictal] Allergy Rash Verified 07/23/21 19:02 Sulfa (Sulfonamide Allergy Rash Verified 07/23/21 19:02 Antibiotics) linaclotide [From Linzess] AdvReac Abdominal Verified 07/23/21 19:02 Pain quetiapine [From Seroquel] AdvReac bad side Verified 07/23/21 19:02 effects' topiramate AdvReac Fogginess Verified 07/23/21 19:02 ziprasidone [From Geodon] AdvReac psychosis Verified 07/23/21 19:02 Assessment & Plan Assessment & Plan (1) Major depressive disorder, recurrent, moderate: Status: Acute Code(s): F33.1 - Major depressive disorder, recurrent, moderate (2) Cocaine use disorder: Status: Acute Code(s): F14.10 - Cocaine abuse, uncomplicated (3) Anorexia nervosa, restricting type: Status: Acute Code(s): F50.01 - Anorexia nervosa, restricting type (4) Opioid use disorder, moderate, dependence: Status: Acute Code(s): F11.20 - Opioid dependence, uncomplicated Plan 37 yo female, hx of recurrent major depression, severe, restrictive anorexia and polysubstance use disorder, mainly crack, cocaine. Pt unable to maintain sobriety and is suicidal. She believes IOP would help her but is unsure. She has a strong urge to and finds her existance too painful to bear at this time. Several recent hospitalizations without much success with several losses as a result of illnesses. Plan: Re-establish regime Pt believes IOP will help. Recently required Narcan 01/28. ? Section 35 candidate Engage in milieu 02/06/23 Continue current regime Bethanechol timing changed per pt request. Participating in groups. 02/07: Pt depressed and suicidal; feels she as lost everything . Would like to not use substances. Pt reports she would like IOP, [facility] and [facility] services. tin worker notified. 02/08 increased latuda 60mg po dinner time. 02/09 continue tx. Collateral information gathered from Dr. Flores, pt's outpatient psychiatrist, who reports pt struggling on and off with suicidal thoughts. Multiple medication changes. 02/10 continue tx. pt asks for chief revenue officer consult. 02/11 continue tx. 02/12 continue treatment 02/13 continue same treatment 02/14 patient is at baseline. Still trying to be hopeful despite feeling that it is harder to do so but no SI and future oriented, wanting to pursue sobriety and then go to eating disorder clinic. Feels that medications are adequate. Patient is trying to get into partial program at [facility]. Hopes to discharge soon; feels safe; says will wait at home for opening spot. Although patient remains vulnerable to relapse and depressive thoughts, these are chronic struggles for her.. She is at baseline 02/15 Patient anxious about discharged since learning that IOP is actually in person. Patient says she has avoided being in person at anything for over a year and became emotional at the thought of having to put herself together in a presentable way. Patient struggles with thinking that she is overweight however is continues to try and intellectually challenged this chronic thought disorder. Patient was able to discuss her feelings and the origins of this struggle, on going back to chronic anxiety of not being loved/level, dating back to childhood. Patient had insight to know that pushing herself to overcome these struggles and participate in treatment is a significant part of recovery. She also has the insight to know that this struggle is a pervasive healing condition type with struggle and that she will be surrounded by people working to overcome the same issue. Patient remains without any SI and patient feels safe to return home and prepare for IOP. Patient remains at baseline and SI has remained resolved. She is future oriented; patient continues to struggle with chronic issues however she is not in imminent risk for harm to self or others, without any SI, pursuing sobriety and remains future oriented; patient agrees that longer stay on inpatient unit will not further resolve her struggles which are decades old and continue to need consistent outpatient treatment. Patient has outpatient support in place including providers and is appropriate to continue treatment in the community. Patient educated on: diagnosis, medication risk/benefits, substance abuse, therapeutic strategies and medical condition Informed Consent: understands Reason for continued inpatient stay Substantial Risk for: stable for discharge Time Spent With Patient Time: Total time managing care of this patient today ____ minutes.
[2023-02-15] MEDS: Acetaminophen 325 MG TABLET 650 MG PO (13:33)
[2023-02-15] MEDS: Lurasidone HCl 20 MG TABLET 60 MG PO (18:21)
[2023-02-15] MEDS: Zolpidem Tartrate 5 MG TABLET 10 MG PO (21:59)
[2023-02-15] MEDS: hydrOXYzine HCL 25 MG TABLET PO (21:59)
[2023-02-15] MEDS: cloNIDine HCL 0.1 MG TABLET PO (22:00)
[2023-02-15] MEDS: traZODone HCL 100 MG TABLET PO (22:00)
[2023-02-16 06:00] VITALS: BP 111/55; PULSE 89; RESP 16; TEMP 36.4; O2SAT 99
[2023-02-16] MEDS: Bethanechol Chloride 25 MG TABLET PO ×2 (09:01→12:14)
[2023-02-16] MEDS: Benztropine Mesylate 0.5 MG TABLET PO (09:01)
[2023-02-16] MEDS: Omeprazole 20 MG CAPSULE.DR PO (09:01)
[2023-02-16] MEDS: FLUoxetine HCl 20 MG CAPSULE PO (09:01)
[2023-02-16] MEDS: DULoxetine HCl 30 MG CAPSULE.DR 90 MG PO (09:02)
[2023-02-16] MEDS: Thiamine HCL 100 MG TABLET PO (09:02)
--- NOTE | 2023-02-16 10:14 | PM.PSYDC ---
DS: Providers Provider Date of Service: 02/16/23 Date of admission: 02/04/23 23:08 Date of discharge: 02/16/23 Primary care physician: Unknown Physician Admitting clinician: Gina Caicedo Consults: 02/05/23 08:48 Consult to Hospitalist Routine Comment: Consulting Provider: Hospitalist Reason For Exam: transfer pt Attending physician on discharge: Chirag Alcazar DS: Diagnosis Discharge Diagnosis (1) Major depressive disorder, recurrent, moderate: Status: Acute (2) Cocaine use disorder: Status: Acute (3) Anorexia nervosa, restricting type: Status: Acute (4) Opioid use disorder, moderate, dependence: Status: Acute (5) PTSD (post-traumatic stress disorder): Status: Acute (6) Ileostomy present: Status: Acute DS: Medications Discharge Medications Home Medications: Home Medications Medication Instructions Recorded Confirmed clonidine HCl 0.1 mg tablet 1 tab PO DIRECTED PRN Anxiety 01/19/22 02/05/23 fluoxetine 20 mg capsule 1 cap PO DAILY 01/19/22 02/05/23 trazodone 100 mg tablet 1 tab PO BEDTIME 06/21/22 02/05/23 zolpidem 10 mg tablet 1 tab PO BEDTIME 06/21/22 02/05/23 Lactobacillus acidophilus and 1 cap PO DAILY 02/05/23 02/05/23 rhamnosus 15 billion cell capsule (Probiotic) benztropine 0.5 mg tablet 0.5 mg PO BID 02/05/23 02/05/23 bethanechol chloride 25 mg tablet 25 mg PO TID 02/05/23 02/05/23 duloxetine 30 mg capsule,delayed 30 mg PO DAILY 02/05/23 02/05/23 release duloxetine 60 mg capsule,delayed 60 mg PO DAILY 02/05/23 02/05/23 release hydroxyzine HCl 25 mg tablet See Rx Instructions .Route 02/05/23 02/05/23 .COMPLEX PRN Anxiety hydroxyzine pamoate 25 mg capsule 25 mg PO BID PRN anxiety 02/05/23 02/05/23 loperamide 2 mg capsule 2 mg PO Diarrhea 02/05/23 (Anti-Diarrheal (loperamide)) omeprazole 20 mg capsule,delayed 20 mg PO DAILY 02/05/23 02/05/23 release omeprazole 20 mg capsule,delayed 20 mg PO DAILY 02/05/23 02/05/23 release thiamine HCl (vitamin B1) 100 mg 100 mg PO DAILY 02/05/23 02/05/23 tablet (Vitamin B-1) trazodone 100 mg tablet 100 mg PO BEDTIME 02/05/23 02/05/23 Mental Status Exam Mental Status Exam Narrative: Pt is alert and oriented; behavior is cooperative, friendly, calm; patient not in distress; dressed in casual attire with unkempt hair but adequate hygiene; mood is described as okay and affect congruent; eye contact appropriate; Speech is normal rate, volume and prosody and not pressured; no psychomotor agitation/retardation present; thought process is organized and goal directed; Thought content is on tx, getting sober, overcoming unhealthy thoughts about eating disorder; otherwise pertinent to relevant topics; some continued, chronic intermittent unhealthy/delusional thinking about her eating disorder (thinking she is overweight) but otherwise, no paranoid ideations or grandiosity; denies any SI/HI. There is no evidence of perceptual disturbance. Patients insight and judgment are impaired but at baseline and adequate Data Data Completed and Pending Completed studies during hospitalization [Text1]: 02/12/23 Unknown Urine Opiates Screen Not Detected Urine Fentanyl Screen POSITIVE H Ur Barbiturates Screen Not Detected Ur Phencyclidine Scrn Not Detected Ur Amphetamines Screen Not Detected U Benzodiazepines Scrn Not Detected Urine Cocaine Screen Not Detected U Marijuana (THC) Screen Not Detected DS: Summary Hospital Course Hospital Course: HPI: 37 yo female, hx of recurrent major depression, PTSD severe, restrictive anorexia and polysubstance use disorder, mainly crack, cocaine. Pt unable to maintain sobriety and is suicidal. She believes [facility] would help her but is unsure. She has a strong urge to and finds her existance too painful to bear at this time. Several recent hospitalizations without much success with several losses as a result of illnesses. Hospital course: Patient was depressed but SI started to carolyn. Latuda increased. Patient was forthcoming during 1 on 1 sessions. SI fully resolved and though patient remained depress, she cultivated Hope and was future oriented, very much wanting to pursue sobriety and then get back to [facility] outpatient program; patient agreed to go to [facility] for substance abuse which was a prerequisite for getting to [facility]. Patient could sometimes irritable with staff but overall remained appropriate and in good behavioral and impulse control throughout her time in the unit. Patient felt ready for discharge; she felt safe remained without any SI. She did struggle with anxiety after learning that IOP is actually in person but was able to process her feelings and realize that a lot of her anxieties were due to chronic, deep seeded worries about being loveable/accepted. She expressed some ambivalence about her confidence in pushing aside these anxieties but also had insight to know that pushing herself to overcome these struggles and participate in treatment is a significant part of her recovery; she remained focused on pursuing outpatient treatment. Patient return to baseline. Patient remains vulnerable to relapse, mood dysregulation and continued struggles with eating disorder issues however these are chronic issues which she agrees will not resolve with longer stay on inpatient unit but rather require continued consistent outpatient therapy and sobriety, of which she is willing to pursue. Patient is not in imminent risk for harm to self or others and appropriate for discharge to continue treatment in the community. Time spent discussing smoking cessation with patient: 3 to 10 minutes Status at Discharge Functional status at discharge: independent ambulation Overall status at discharge: patient is back to baseline Time Spent with Patient Time attestation: Total time managing care of this patient today ____ minutes. Time spent: Less than 30 minutes Discharge Plan Discharge Anticipated Discharge Date/Time: 02/16/23 13:00 Patient Disposition: Home, Self-Care Discharge Diagnosis: Depression, recurrent, severe without psychosis in partial remission Referrals: Caroline Thapa MD [Physician] - 03/21/23 10:15 am (in office) Discharge Medications: New lurasidone 60 mg tablet 60 mg PO DAILY@1730 30 Days Qty: 30 0RF Rx Instructions: must administer with food (at least 350 calories) Continued Probiotic 15 billion cell capsule 1 cap PO DAILY loperamide [Anti-Diarrheal (loperamide)] 2 mg capsule 2 mg PO benztropine 0.5 mg tablet 0.5 mg PO BID 30 Days Qty: 60 0RF thiamine HCl (vitamin B1) [Vitamin B-1] 100 mg tablet 100 mg PO DAILY 30 Days Qty: 30 0RF bethanechol chloride 25 mg tablet 25 mg PO TID 30 Days Qty: 90 0RF omeprazole 20 mg capsule,delayed release(DR/EC) 20 mg PO DAILY 30 Days Qty: 30 0RF hydroxyzine HCl 25 mg tablet See Rx Instructions .ROUTE .COMPLEX MDD 200mg PRN (Reason: Anxiety) 30 Days Qty: 90 0RF Rx Instructions: take 1-2 tablets every 6hrs as needed. Do not exceed 8 tablets in 24hrs. duloxetine 30 mg capsule,delayed release(DR/EC) 30 mg PO DAILY 30 Days Qty: 30 0RF Rx Instructions: take with 60mg capsule duloxetine 60 mg capsule,delayed release(DR/EC) 60 mg PO DAILY 30 Days Qty: 30 0RF Rx Instructions: take with 30mg cap Changed clonidine HCl 0.1 mg tablet 0.1 mg PO DIRECTED PRN (Reason: Anxiety) 30 Days Qty: 30 0RF Rx Instructions: Take 1 tablet by mouth every evening as needed trazodone 100 mg tablet 100 mg PO BEDTIME 30 Days Qty: 30 0RF zolpidem 10 mg tablet 10 mg PO BEDTIME PRN (Reason: insomnia) 15 Days Qty: 15 1RF fluoxetine 20 mg capsule 20 mg PO DAILY 30 Days Qty: 30 0RF Discontinued trazodone 100 mg tablet 100 mg PO BEDTIME omeprazole 20 mg capsule,delayed release(DR/EC) 20 mg PO DAILY hydroxyzine pamoate 25 mg capsule 25 mg PO BID PRN (Reason: anxiety) Discharge Orders: Discharge Order (Routine); Ordered 02/16/23 Ordered By: Chirag Alcazar Diet: Regular diet Activity on Discharge: As tolerated Stand Alone Forms: Patient Portal Discharge page Care Plan Goals: Maintain mood and safe behaviors Take medications as prescribed Continue to pursue sobriety Practice coping skills Continue with outpatient providers and reach out to them as needed Health Concerns: Mood stability and behaviors Eating disorder Sobriety Ileostomy Plan of Treatment: Follow up with your PCP, psychiatric provider and other outpatient providers regarding above concerns Take medications as prescribed Assessment: Risk assessment at time of discharge:? Patient was interviewed prior to discharge and found to be fully oriented and without any SI or HI. Patient has insight and demonstrates good judgment in terms of wanting to pursue treatment. Patient is not in imminent risk of harm to self or others and has a safety plan that includes presenting to the closest ER or calling 911 if feeling unsafe.? Patient has been observed closely by nursing and unit staff throughout admission; patient has not engaged in any behaviors that suggest dangerousness to self or others and has demonstrated appropriate behaviors and impulse control
[2023-02-16] MEDS: Naloxone HCl Nasal TAKE HOME 4 MG SPRAY 8 MG NOSTRILALT (13:11)
== END 2023-02-16 13:58 | disposition home or self-care (01) | DRG 751 ==
PROVIDERS: Clinical Nurse Specialist Psychiatric/Mental Health, Adult; Social Worker; Admitting Provider Psychiatry & Neurology Psychiatry; Visit Provider Psychiatry & Neurology Psychiatry
DX: F33.1 Major depressive disorder, recurrent, moderate (principal); G12.9 Spinal muscular atrophy, unspecified; F50.01 Anorexia nervosa, restricting type; R45.851 Suicidal ideations; F43.10 Post-traumatic stress disorder, unspecified; F19.10 Other psychoactive substance abuse, uncomplicated; F11.20 Opioid dependence, uncomplicated; Z93.2 Ileostomy status; M79.7 Fibromyalgia; M99.05 Segmental and somatic dysfunction of pelvic region; Z79.899 Other long term (current) drug therapy
CPT/HCPCS: 36415; 80053; 80061; 80307; 82607; 82746; 83036; 84443; 85025; 93005

== ENCOUNTER → 2023-02-04 23:08 | Outpatient (BNV) | payer OTHER, SELFPAY | PROVIDERS: Admitting Provider Psychiatry & Neurology Psychiatry; Visit Provider Clinical Nurse Specialist Psychiatric/Mental Health, Adult | DX: F33.1 Major depressive disorder, recurrent, moderate (principal); F14.10 Cocaine abuse, uncomplicated; F50.01 Anorexia nervosa, restricting type | CPT/HCPCS: 99231; 99232 ==

== ENCOUNTER → 2023-02-04 23:08 | Outpatient (BNV) | payer MEDICAID, SELFPAY | PROVIDERS: Admitting Provider Psychiatry & Neurology Psychiatry; Visit Provider Physician Assistant | DX: F14.10 Cocaine abuse, uncomplicated (principal) | CPT/HCPCS: 99222 ==